=== PATIENT | male | born 1950 | race Caucasian/White ===

== ENCOUNTER 2017-04-18 02:35 | Emergency (ER) | payer MEDICARE, BC ==
[~2017-04-18] VITALS: Ht 188 cm; Wt 136.1 kg
[~2017-04-18 02:35] MED LIST: ALLOPURINOL300 MG PO; ASPIR-LOW81 MG PO; ATORVASTATIN CA40 MG PO; C-10001000 M1 PO; CARVEDILOL25 MG PO; CEPHALEXIN500 MG PO; CHROMIUM PICO200 MC1 PO; FUROSEMIDE20 MG PO; GABAPENTIN100 MG PO; GABAPENTIN300 MG PO; LEVOTHYROXINE50 MCG PO; LIPITOR80 MG GT; LISINOPRIL10 MG PO; LISINOPRIL5 MG PO; LORAZEPAM1 MG PO; MAG GLYCINATE100 MG PO; METOPROLOL TART25 MG PO; NITROGLYCERIN0.4 MG SL; ONDANSETRON HCL8 MG PO; OXYCODON-ACETA1 EAC2 PO; PLAVIX75 MG PO; POTASSIUM CHLO10 ME2 PO; PRILOSEC20 MG PO; SENNA LAX8.6 MG PO; TRAMADOL HCL50 MG PO; ULTRAM50 MG PO; VITAMIN B-12100 MCG PO; VITAMIN D35000 UNIT PO; XARELTO10 MG PO; ZYRTEC10 M3 PO
[2017-04-18] MEDS ORDERED: FUROSEMIDE20 MG PO (03:22)
--- NOTE | 2017-04-18 18:00 | EKG ---
[facility] [address] [facility] [place] [address] Signed Sinus bradycardia with 1st degree AV block Left axis deviation Abnormal ECG When compared with ECG of 04-JUL-2016 05:56, No significant change was found Confirmed by PAUL CARNEY MD ([id number]) on 04/18/2017 5:59:54 PM Electronically Signed By: PAUL CARNEY MD 04/18/17 1800 PATIENT NAME: JOAQUIM SANCHEZ JR Electrocardiogram DATE OF : 52 PHYSICIAN: PAUL CARNEY MD REPORT #: [id number] REPORT IS CONFIDENTIAL AND NOT TO BE RELEASED WITHOUT AUTHORIZATION
--- NOTE | 2017-04-18 18:00 | EKG ---
[facility] [address] [facility] [place] [address] Signed Sinus bradycardia with 1st degree AV block Left anterior fascicular block Cannot rule out Inferior infarct (masked by fascicular block?) , age undetermined Abnormal ECG When compared with ECG of 18-APR-2017 02:42, (Unconfirmed) No significant change was found Confirmed by PAUL CARNEY MD ([id number]) on 04/18/2017 6:00:03 PM Electronically Signed By: PAUL CARNEY MD 04/18/17 1800 PATIENT NAME: DANIEL JRJOAQUIM AGNES Electrocardiogram DATE OF : 52 PHYSICIAN: PAUL CARNEY MD REPORT #: [id number] REPORT IS CONFIDENTIAL AND NOT TO BE RELEASED WITHOUT AUTHORIZATION
== END 2017-04-18 06:15 | disposition home or self-care (01) ==
LOC: ED 02:35
DX: R07.89 Other chest pain (principal); I10 Essential (primary) hypertension; I25.2 Old myocardial infarction; Z86.73 Personal history of transient ischemic attack (TIA), and cerebral infarction without residual deficits; Z95.5 Presence of coronary angioplasty implant and graft; Z88.5 Allergy status to narcotic agent; Z79.899 Other long term (current) drug therapy; Z79.82 Long term (current) use of aspirin
CPT/HCPCS: 71020; 80053; 83735; 84484; 85025; 85379; 85610; 85730; 93005; 93010; 99284

== ENCOUNTER 2017-12-28 07:36 | Day surgery (SDC) | payer MEDICARE, BC ==
[~2017-12-28] VITALS: Ht 188 cm; Wt 147.4 kg
[2017-12-28] MEDS ORDERED: ZESTRIL5 MG PO (07:59)
[2017-12-28] MEDS ORDERED: LIPITOR10 MG PO (07:59)
[2017-12-28] MEDS ORDERED: ZYRTEC10 M3 PO (08:00)
--- NOTE | 2017-12-28 09:19 | NUR ---
12/28/17 0919 Ashley Landers 0915 PATIENT ARRIVES TO PACU AWAKE. RESP EVEN AND UNLABORED, ARRIVES ON OXYGEN, BUT TURNED OFF. SATS 95-98% ON ROOM AIR. PATIENT REPOSITIONED SELF TO BACK FOR COMFORT. ENCOURGAED TO PASS GAS TO RELIEVE CRAMPING.
--- NOTE | 2018-01-06 18:32 | OR ---
[facility] [address] [place], [place] [address] Signed DATE OF OPERATION: 12/28/2017 SURGEON: Zan Canales MD PREOPERATIVE DIAGNOSES: 1. Episodic rectal bleeding. 2. History of lymphoma 2015 (in remission). 3. History of serrated adenoma, 2007. POSTOPERATIVE DIAGNOSIS: Small hyperplastic polyp, left colon (excised). PROCEDURE: Total colonoscopy to cecum with cold morcellation polypectomy x1. ANESTHESIA: Intravenous sedation, fentanyl 100 mcg, Versed 5 mg. INDICATION: This 67-year-old white man is a patient of Dr. Carney and has history of lymphoma diagnosed in June of 2016 and treated effectively and now in durable remission. He was previously a patient of Dr. Chacko and now is a patient of Dr. Carney. He has had some episodes of rectal bleeding, not much and not recently. He is admitted at this time to undergo colonoscopy on the basis of that alone. He does have a history of serrated adenoma excised in 2007, without recommended followup since that time. He understands the risks of bleeding, infection, and perforation related to colonoscopy and wished to proceed. FINDINGS: The prep was good. Complete colonoscopy was undertaken to the cecum without question. There was no sign of adenomatous polyp of any sort. He had a few scattered diverticula, not many and one area, there was probably hyperplastic polyp, which was excised. The rectum was normal otherwise. PROCEDURE: The patient was brought to the endoscopy suite and placed in lateral decubitus position given intravenous sedation to the point of slurred speech and nystagmus. Digital rectal examination was normal. Electronically Signed By: ZAN CANALES MD 01/06/18 1832 PATIENT NAME: JOAQUIM SANCHEZ JR OPERATIVE REPORT DATE OF : 52 REPORT #: [id number] PHYSICIAN: ZAN CANALES MD PCP: Carolyn CHACKO MD REPORT IS CONFIDENTIAL AND NOT TO BE RELEASED WITHOUT AUTHORIZATION [facility] [address] [place], [place] [address] Signed An Olympus video colonoscope was passed in the rectum and manipulated throughout the colon ultimately intubating the cecum itself. The ileocecal valve and appendiceal orifice were normal. The scope was withdrawn from that point and examination thoroughly done throughout showed no sign of abnormality other than a small area suggestive of hyperplastic polyp in the descending colon. This was excised with cold morcellation technique. A few scattered diverticula were seen in the sigmoid. The scope was further withdrawn. Retroflexed view of the rectum was normal. Scope was removed. The patient was taken to recovery room in good condition. CONCLUDING DIAGNOSIS: No lesion to account for bleeding episode. Certainly, no evidence of adenomatous polyps or cancer. Probable hyperplastic polyp of left colon. PLAN: Recommend repeat colonoscopy in 10 years sooner if clinically indicated. He will follow up with his usual physician, Dr. Carney as needed. MD NIVIA Barr/MOSHE /[id number] cc: Paul Carney MD Copies: PAUL CARNEY MD ~ Electronically Signed By: ZAN CANALES MD 01/06/18 1832 PATIENT NAME: JOAQUIM SANCHEZ JR OPERATIVE REPORT DATE OF : 52 REPORT #: [id number] PHYSICIAN: ZAN CANALES MD PCP: Carolyn CHACKO MD REPORT IS CONFIDENTIAL AND NOT TO BE RELEASED WITHOUT AUTHORIZATION
== END 2017-12-28 09:45 | disposition home or self-care (01) ==
LOC: OPS 07:36 → DS 07:36 → OPS 08:30 → DS 08:30 → OPS 09:45
PROVIDERS: Surgery
PROC: 0DBG8ZZ Excision of Left Large Intestine, Via Natural or Artificial Opening Endoscopic (ICD-10-PCS; principal; 2017-12-28 08:30)
DX: K63.5 Polyp of colon (principal); K57.30 Diverticulosis of large intestine without perforation or abscess without bleeding; E78.5 Hyperlipidemia, unspecified; I10 Essential (primary) hypertension; E03.9 Hypothyroidism, unspecified; I25.2 Old myocardial infarction; G47.30 Sleep apnea, unspecified; I25.10 Atherosclerotic heart disease of native coronary artery without angina pectoris; E66.01 Morbid (severe) obesity due to excess calories; Z99.89 Dependence on other enabling machines and devices; Z85.72 Personal history of non-Hodgkin lymphomas; Z95.5 Presence of coronary angioplasty implant and graft; Z88.5 Allergy status to narcotic agent; Z86.010 Personal history of colon polyps; Z68.41 Body mass index [BMI] 40.0-44.9, adult
CPT/HCPCS: 88305; 99153; G0500; J2250; J3010; J7120

== ENCOUNTER 2019-09-27 09:18 | Emergency (ER) | payer MEDICARE, BC ==
[~2019-09-27] VITALS: Ht 188 cm; Wt 138.3 kg
--- OUTSIDE RECORDS SUMMARY | ~2019-09-27 | XMS | Encounter Summary ---
Demographics + + + | Address | [address] | | | [place] [address] | + + + | Home Phone | | + + + | Preferred Language | Unknown | + + + | Marital Status | | + + + | Hoahaoism Affiliation | [id number] | + + + | Race | Unknown | + + + | Ethnic Group | Unknown | + + + Author + + + | Author | [facility] | | | and [place] | + + + | Organization | [facility] | | | and [place] | + + + | Address | Unknown | + + + | Phone | Unavailable | + + + Support + + + + + | Name | Relationship | Address | Phone | + + + + + | Mara Sanchez | ECON | [address] | | | | | [place] | | | | | [address] | | + + + + + Care Team Providers + +------+ + | Care Compliance Reviewer Name | Role | Phone | + +------+ + | Earle Chacko MD | PCP | | + +------+ + Reason for Visit + + + | Reason | Comments | + + + | Follow-up | | + + + Encounter Details +--------+ + + + + | Date | Type | Department | Care Team | Description | +--------+ + + + + | 06/19/ | Hospital | [facility] | Mohamud, | Diffuse large B-cell | | 2017 | Encounter | [facility] | Joaquim Benson MD [address] | lymphoma of | | | | [facility] [address] | intra-abdominal | | | | [address] | [place] [address] | lymph nodes (HCC) | | | | [place] [address] | [phone] | | | | | [phone] | | | +--------+ + + + + Social History + +-------+ +--------+ + | Tobacco Use | Types | Packs/Day | Years | Date | | | | | Used | | + +-------+ +--------+ + | Former Smoker | | 3 | 22 | Quit: 07/18/1990 | + +-------+ +--------+ + + +---+---+---+ | Smokeless Tobacco: | | | | | Never Used | | | | + +---+---+---+ + + +---------+ + | Alcohol Use | Drinks/Week | oz/Week | Comments | + + +---------+ + | Yes | | | Occasionally - | + + +---------+ + + + + | Sex Assigned at | Date Recorded | | | | + + + | Not on file | | + + + + + + + | Job Start Date | Occupation | Industry | + + + + | Not on file | Not on file | Not on file | + + + + + + + + | Travel History | Travel Start | Travel End | + + + + + + | No recent travel history available. | + + documented as of this encounter Last Filed Vital Signs + + + + + | Vital Sign | Reading | Time Taken | Comments | + + + + + | Blood Pressure | 158/86 | 06/19/2017 9:32 AM | | | | | PDT | | + + + + + | Pulse | 53 | 06/19/2017 9:32 AM | | | | | PDT | | + + + + + | Temperature | 36.3 C (97.3 F) | 06/19/2017 9:32 AM | | | | | PDT | | + + + + + | Respiratory Rate | 18 | 06/19/2017 9:32 AM | | | | | PDT | | + + + + + | Oxygen Saturation | 95% | 06/19/2017 9:32 AM | | | | | PDT | | + + + + + | Inhaled Oxygen | - | - | | | Concentration | | | | + + + + + | Weight | 142.9 kg (315 lb) | 06/19/2017 9:32 AM | | | | | PDT | | + + + + + | Height | - | - | | + + + + + | Body Mass Index | 40.44 | 07/18/2016 4:16 PM | | | | | PDT | | + + + + + documented in this encounter Medications at Time of Discharge + + + +---------+ + + | Medication | Sig | Dispensed | Refills | Start | End Date | | | | | | Date | | + + + +---------+ + + | aspirin 81 mg EC | Take 81 mg by mouth | | 0 | | | | tablet | Daily. | | | | | + + + +---------+ + + | B Complex Vitamins | Take by mouth as | | 0 | | | | (VITAMIN B COMPLEX | needed. | | | | | | PO) | | | | | | + + + +---------+ + + | carvedilol (COREG) | Take 25 mg by mouth | | 2 | 06/16/20 | | | 25 mg tablet | 2 times daily (with | | | 16 | | | | breakfast & dinner). | | | | | | | Taking 1.5 tabs | | | | | | | twice daily. | | | | | + + + +---------+ + + | cetirizine | Take 10 mg by mouth | | 0 | | | | (ZYRTEC) 10 mg | Daily. | | | | | | tablet | | | | | | + + + +---------+ + + | | Apply topically | | 0 | | | | clotrimazole-betamet | Daily as needed. | | | | | | hasone (LOTRISONE) | | | | | | | cream | | | | | | + + + +---------+ + + | gabapentin | Take by mouth | | 4 | 06/12/20 | | | (NEURONTIN) 100 mg | Daily. 200 mg in AM, | | | 16 | | | capsule | 200 mg in | | | | | | | afternoon, also | | | | | | | taken with 300 mg in | | | | | | | evenings. | | | | | + + + +---------+ + + | gabapentin | Take 300 mg by mouth | | 2 | 07/13/20 | | | (NEURONTIN) 300 mg | Daily. | | | 16 | | | capsule | | | | | | + + + +---------+ + + | levothyroxine | | | 3 | 06/15/20 | | | (SYNTHROID, | | | | 16 | | | LEVOTHROID) 50 mcg | | | | | | | tablet | | | | | | + + + +---------+ + + | Multiple Vitamin | Take by mouth. | | 0 | | | | (MULTIVITAMINS PO) | Micro plex VMz | | | | | | | doTERRA supplement | | | | | + + + +---------+ + + | omeprazole | Take 20 mg by mouth | | 0 | | | | (PRILOSEC) 20 mg | every morning | | | | | | capsule | (before breakfast). | | | | | + + + +---------+ + + | traMADol (ULTRAM) | Take 50 mg by mouth | | 0 | 07/26/20 | | | 50 mg tablet | every 6 hours as | | | 16 | | | | needed. | | | | | + + + +---------+ + + | VITAMIN E COMPLEX | Take by mouth. | | 0 | | | | PO | | | | | | + + + +---------+ + + | cyanocobalamin | Take 50 mcg by mouth | | 0 | | | | (VITAMIN B-12) 100 | Daily. | | | | 8 | | MCG tablet | | | | | | + + + +---------+ + + | furosemide (LASIX) | Take 20 mg by mouth | | 0 | | | | 20 mg tablet | Daily. | | | | 8 | + + + +---------+ + + | GINSENG PO | Take 2 tablets by | | 0 | | | | | mouth. Takes it for | | | | 8 | | | one week the week | | | | | | | after chemo | | | | | + + + +---------+ + + | LORazepam (ATIVAN) | Take 1 tablet by | 90 | 3 | 06/19/20 | | | 1 mg | mouth every 8 hours | tablet | | 17 | 7 | | tabletIndications: | as needed for | | | | | | Diffuse large B-cell | Insomnia | | | | | | lymphoma of | (Nausea/Vomiting or | | | | | | intra-abdominal | sleeplessness | | | | | | lymph nodes (HCC) | related to | | | | | | | chemotherapy) for up | | | | | | | to 90 days. | | | | | + + + +---------+ + + | ondansetron | Take 1 tablet by | 30 | 3 | 07/25/20 | | | (ZOFRAN) 8 MG | mouth 2 times daily. | tablet | | 16 | 8 | | tabletIndications: | For two days after | | | | | | Diffuse large B-cell | each chemo and then | | | | | | lymphoma of | may take one tab | | | | | | intra-abdominal | every 8 hours if | | | | | | lymph nodes (HCC) | needed for nausea | | | | | + + + +---------+ + + | XARELTO 10 MG | Take 1 tablet by | 30 | 1 | 04/16/20 | | | tabletIndications: | mouth Daily. | tablet | | 17 | 8 | | Diffuse large B-cell | | | | | | | lymphoma of | | | | | | | intra-abdominal | | | | | | | lymph nodes (HCC) | | | | | | + + + +---------+ + + documented as of this encounter Progress Notes Joaquim Tejeda MD - 06/19/2017 9:36 AM PDTFormatting of this note might be differe nt from the original. Hematology/Oncology Progress Note [facility] [place], [place] Pt. Name/Age/: Joaquim Sanchez Jr. 66 y.o. 1950 Med. Record Number: [id number] Date of admission: 06/19/2017 Identifying Statement: Joaquim Sanchez Jr. is a 66 y.o. 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 The patient chart and medications were reviewed in detail and the patient was seen and exam ined. History of Present Illnesses, their Current Assessments and Plans: Problem List Diffuse large B-cell lymphoma of intra-abdominal lymph nodes Overview ACTIVE DIAGNOSIS: Mixed; Diffuse Large B-Cell/Follicular Lymphoma, at least Stage III. 1. Presentation with a three month history of progressive Left lower extremity edema, urina ry frequency and bowel irregularity. Left lower extremity venous doppler 2016 (S ) No DVT left lower extremity. CT abdomen/Pelvis with contrast 2016 ([facility]). Ex tensive periaortic lymphadenopathy (1.8 cm and 2.1 cm respectively), extensive adenopathy ex tending out along the left common iliac artery and encasing the left external iliac artery ( 4.4 cm) with compromise of the left external iliac vein. 2. Open laparotomy with LEFT ileal retroperitoneal lymph node biopsy ([facility], [facility]) June 242015. Specimen #[id number] ([facility]); Diffuse Large B-Cell lymph raciel, germinal center subtype (75%). 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 Overall Ki-67 expre ssion 70%. 3. PET/CT scan on 07/13/2016 was an incomplete study because the patient could not tolerate positioning but did demonstrate hypermetabolic left supraclavicular lymphadenopathy. 4. Cardiac Echocardiogram 07/24/2016; Ejection fraction 70%. 5. Patient declined bone marrow biopsy and aspiration. 6. Cycle#1 of RCHOP plus Neulasta with peripheral iv access on July 25, 2016. 7. Right internal jugular Port-a-Cath by Dr. David Morton on August 10, 2016. 8. Cycle#2 of RCHOP plus Neulasta on August 14, 2016. 9. Cycle#3 of RCHOP plus Neulasta on September 04, 2016. 10. CT Abdomen/Pelvis at [facility] [place] on September 12, 2016; Positive Response when compared to July 04, 2016. Region July 04, 2016 September 12, 2016 RIGHT Retroperitoneal 18 mm 6 mm LEFT Retroperitoneal 21 mm resolved LEFT iliac artery 22 x 26 mm 14 x 22 mm Left Iliac lymph node chain 60 x 40 mm 28 x 28 mm 11. Cycle #4 RCHP (vincristine dropped due to peripheral neuropathy) September 26, 2016. 12. Cycle #5 RCHP (vincrisitne dropped due to peripheral neuropathy) October 17, 2016. 13. Patient electively discontinued cytotoxic chemotherapy due to intolerable adverse effe ct on November 07, 2016 (fatigue, nausea (without emesis), night sweats, dysphagia, dyspepsi a, numbness in the fingers and toes which has progressed in the lower extremities to include painful dysesthesias, dysuria, insomnia, decreased mental acuity and separation of the toen ails from the nailbeds, headaches and decreased visual acuity, chest pain and palpitations, and dyspnea on exertion, rhinorrhea and epiphora) and crossed over to rituximab maintenance 375 mg/m once ever two months for two years (PRIMA protocol). 14. Repeat CT scan at [place], [place] on December 01, [address] able left iliac lymph node chain adenopathy. Region July 04, 2016 September 12, 2016 December 01, 2016 RIGHT Retroperitoneal 18 mm 6 mm resolved LEFT Retroperitoneal 21 mm resolved resolved LEFT iliac artery 22 x 26 mm 14 x 22 mm resolved Left Iliac lymph node chain 60 x 40 mm 28 x 28 mm 31 x [address] scan at [facility] on April 18, 2017 demonstrated decreased left iliac lymph node chain adenopathy. Region July 04, 2016 September 12, 2016 December 01, 2016 April 18, 2017 RIGHT Retroperitoneal 18 mm 6 mm resolved resolved LEFT Retroperitoneal 21 mm resolved resolved resolved LEFT iliac artery 22 x 26 mm 14 x 22 mm resolved resolved Left Iliac lymph node chain 60 x 40 mm 28 x 28 mm 31 x 21 mm 21 X 19 mm Current Assessment & Plan Joaquim Sanchez Jr. returned to clinic on 06/19/2017 with his , Mara, for foll ow-up and his fifth cycle of maintenance of rituximab for his composite diffuse large B-cell /follicular B-cell lymphoma. Interval history is notable for the fact that Dr. Chacko has taken Rios off of rivaroxaban ( Xarelto) and furosemide (Lasix). Chief complaint remains left lower extremity extremity edema. He has gained access to a int ermittent compression garment that he wears at night and compression garment that he wears d uring the day. Clinical exam is notable for asymmetrical LEFT lower extremity edema to the groin. Laboratory exam is notable for persistent, mild pancytopenia, likely a carry-over from his cytotoxic chemotherapy, which is not dose-limiting. Imaging studies are reviewed, showing progressive improvement in left inguinal lymphadenopa thy. Assessment; Composite B-Cell Lymphoma in a deepening first near-complete response. Plan; Proceed with Cycle #5 maintenance rituximab. Return in two months for Cycle #6 of a planned 12 cycles of maintenance rituximab therapy. Repeat imaging to be determined, consider abdomen/pelvis CT scan in September 2016. Review of Systems: Constitutional: Reports energy is fine. Denies fatigue. Denies high fevers, shaking chills, anorexia, nausea, vomiting, weight loss, or night sweats. Appetite without changes. Ear, Nose, Mouth, Throat: Denies odynophagia, dysphagia, or tinnitus. Cardiovascular: Denies shortness of breath, dyspnea on exertion, chest pain, palpitations o r orthopnea. Respiratory: Denies cough, hemoptysis, or sputum production. Gastrointestinal: Denies abdominal pain, constipation, diarrhea, melena, or bright red bloo d per rectum. Genitourinary: Denies hematuria or dysuria. Musculoskeletal:Chronic intermittent pain in knees, and ankles and shoulders. Neurologic: Denies headache, visual changes, or numbness/tingling of the extremities. State s vision is changing since chemo. Endocrine: Denies heat/cold intolerance. States having lymphedema in the left leg continues . States edema in both legs. Hematologic: Denies spontaneous bruising or bleeding. Integumentary: Denies rash, wounds or other skin concerns. Pain: Denies pain. Review of systems as above otherwise negative NOTE: Here for follow up with Dr. Tejeda, labs, port draw and 4 hour treatment. My chart: Active Review of systems as above otherwise negative Scheduled Medications: Current Outpatient Prescriptions Medication Sig Dispense Refill aspirin 81 mg EC tablet Take 162 mg by mouth Daily. B Complex Vitamins (VITAMIN B COMPLEX PO) Take by mouth. carvedilol (COREG) 25 mg tablet Take 25 mg by mouth 2 times daily (with breakfast & din ner). Taking 1.5 tabs twice daily. 2 cetirizine (ZYRTEC) 10 mg tablet Take 10 mg by mouth Daily. clotrimazole-betamethasone (LOTRISONE) cream Apply topically Daily as needed. cyanocobalamin (VITAMIN B-12) 100 MCG tablet Take 50 mcg by mouth Daily. furosemide (LASIX) 20 mg tablet Take 20 mg by mouth Daily. gabapentin (NEURONTIN) 100 mg capsule Take by mouth Daily. 100 mg in AM, 200 mg in aft ernoon, also taken with 300 mg in evenings. 4 gabapentin (NEURONTIN) 300 mg capsule Take 300 mg by mouth Daily. 2 GINSENG PO Take 2 tablets by mouth. Takes it for one week the week after chemo levothyroxine (SYNTHROID, LEVOTHROID) 50 mcg tablet 3 LORazepam (ATIVAN) 1 mg tablet Take 1 tablet by mouth every 8 hours as needed for Insom neela (Nausea/Vomiting or sleeplessness related to chemotherapy) for up to 90 days. 90 tablet 3 Multiple Vitamin (MULTIVITAMINS PO) Take by mouth. omeprazole (PRILOSEC) 20 mg capsule Take 20 mg by mouth every morning (before breakfast ). ondansetron (ZOFRAN) 8 MG tablet Take 1 tablet by mouth 2 times daily. For two days aft er each chemo and then may take one tab every 8 hours if needed for nausea (Patient not taki ng: Reported on 06/19/2017) 30 tablet 3 traMADol (ULTRAM) 50 mg tablet Take 50 mg by mouth every 6 hours as needed. VITAMIN E COMPLEX PO Take by mouth. XARELTO 10 MG tablet Take 1 tablet by mouth Daily. (Patient not taking: Reported on 05/26) 30 tablet 1 No current facility-administered medications for this encounter. Facility-Administered Medications Ordered in Other Encounters Medication Dose Route Frequency Provider Last Rate Last Dose heparin 100 units/mL flush injection 500 Units 5 mL Intercatheter PRN Joaquim robles MD 500 Units at 06/19/17 1446 Allergies: Allergy: Allergies Allergen Reactions Codeine "wires him up" Past Medical and Surgical History, Social History and Problems: Past Medical History: Diagnosis Date Benign neoplasm of colon Chronic ischemic heart disease Depression Dyspnea Esophageal reflux Hyperglycemia Hyperlipemia Hypertension Obesity Superficial injury of forearm Past Surgical History: Procedure Laterality Date CHOLECYSTECTOMY INGUINAL HERNIA REPAIR incarcerated Internal Jugular Bard Port-a-cath Right 08/11/2017 [facility] KNEE SURGERY Bilateral stent 2013 RCA TONSILLECTOMY AND ADENOIDECTOMY Social History Social History Marital status: Spouse name: N/A Number of children: N/A Years of education: N/A Occupational History Not on file. Social History Main Topics Smoking status: Former Smoker Packs/day: 3.00 Years: 22.00 Quit date: 07/18/1990 Smokeless tobacco: Never Used Alcohol use Yes Comment: Occasionally - Drug use: No Sexual activity: Yes Partners: Female Other Topics Concern Not on file Social History Narrative No narrative on file Patient Active Problem List Diagnosis Diffuse large B-cell lymphoma of intra-abdominal lymph nodes Lymphedema of left lower extremity Objectives: Temp: 36.3 C (97.3 F) BP: 158/86 Pulse: 53 Resp: 18 SpO2: 95 % on Min/Max Temp past 24 hours:Temp Av.3 C (97.3 F) Min: 36.3 C (97.3 F) Max: 3 6.3 C (97.3 F) No intake or output data in the 24 hours ending 06/19/17 1850 Wt. Admission: Weight: (!) 142.9 kg (315 lb) Wt. Current: Weight: (!) 142.9 kg (315 lb) Wt Readings from Last 3 Encounters: 06/19/17 (!) 142.9 kg (315 lb) 04/23/17 (!) 143.1 kg (315 lb 7.7 oz) 02/26/17 (!) 143.7 kg (316 lb 12.8 oz) Body mass index is 40.44 kg/m. Physical Exam: General: The patient is alert and oriented. In no distress. Eyes: Conjunctiva clear. Sclera anicteric. ENMT: Oropharynx fee of lesions, mucous membranes moist. Cardiovascular: Regular rate and rhythm, no rubs, gallops, or murmurs. Lungs: Clear to auscultation and percussion. Chest: Right internal jugular port-a-cath was accessed with a Vargas needle and a brisk bloo d return was noted. Abdomen: Soft, nontender, no hepatospenomegaly. No palpable masses. Bowel sounds present. Infraumbilical surgical scar is well-healed. : No scrotal edema. Extremities: Compression garment on the left lower extremity. Mid calf circumference (15 cm below the inferior border of the patella) is 50 cm on the lef t and 46 cm on the right. Skin: No rashes, bruising, or petechiae. Lymph: No palpable nodes in the neck, supraclavicular fossa, axilla or groin. Neurological: Cranial nerves are intact. Normal sensory and motor function, No focal defi cits noted. Muscular/Skeletal: No acute bony tenderness. No evidence of sarcopenia. Psychiatric: Normal mood and affect. ECOG Performance Status [] 0 [x] 1 [] 2 []3 [] 4 ECOG PERFORMANCE STATUS* Grade ECOG Karnofsky 0 Fully active, able to carry on all pre-disease performance without restriction. 90 - 100 1 Restricted in physically strenuous activity but ambulatory and able to carry out work of a light or sedentary nature, e.g., light house work, office work 70 - 80 2 Ambulatory and capable of all selfcare but unable to carry out any work activ ities. Up and about more than 50% of waking hours 50 - 60 3 Capable of only limited selfcare, confined to bed or chair more than 50% of w aking hours 30 - 40 4 Completely disabled. Cannot carry on any selfcare. Totally confined to bed or chair 10 - 20 * As published in Am. J. Clin. Oncol.: Davida Ma., Rebel REdita., Andie Menezes., Donal Trejo, Michael, TDusty., Armando Diamond., Fatoumata, P .P.: Toxicity And Response Criteria Of The Eastern Cooperative Oncology Group. Am J Clin Onc ol 5:649-655, 1982. The ECOG Performance Status is in the public domain therefore available for public use. To duplicate the scale, please cite the reference above and credit the Eastern Cooperative Onco logy Group, Joaquim Aguirre M.D., Group Chair Diagnostic studies: Available data and images were reviewed personally. See reports. Significant results and findings are addressed here or in the Assessment and Plan. Results for JOAQUIM SANCHEZ JR. ( ) as of 06/19/2017 10:14 Ref. Range 06/19/2017 08:59 WBC Latest Ref Range: 4.0 - 11.0 K/uL 3.1 (L) RBC: Latest Ref Range: 4.30 - 5.70 M/uL 4.21 (L) Hgb Latest Ref Range: 13.5 - 18.0 g/dL 12.7 (L) Hct, Final Latest Ref Range: 40.0 - 51.0 % 36.2 (L) MCV Latest Ref Range: 83.0 - 101.0 fL 85.9 MCH Latest Ref Range: 28.0 - 35.0 pg 30.2 MCHC Latest Ref Range: 32.0 - 36.0 g/dL 35.1 RDW-CV Latest Ref Range: <15.0 % 16.4 (H) Platelet Count Latest Ref Range: 140 - 440 K/uL 106 (L) MPV Latest Units: fL 9.0 Absolute Neutrophils Latest Ref Range: 1.80 - 8.50 K/uL 2.00 Absolute Lymphocytes Latest Ref Range: 0.60 - 3.20 K/uL 0.80 Absolute Monocytes Latest Ref Range: 0.00 - 1.00 K/uL 0.30 Absolute Eosinophils Latest Ref Range: 0.00 - 0.40 K/uL 0.10 Absolute Basophils Latest Ref Range: 0.00 - 0.10 K/uL 0.00 % Neutrophils Latest Ref Range: 45.0 - 82.0 % 62.5 % Lymphocytes Latest Ref Range: 20.0 - 45.0 % 25.1 % Monocytes Latest Ref Range: 4.0 - 12.0 % 9.0 % Eosinophils Latest Ref Range: 0.0 - 5.0 % 2.7 % Basophils Latest Ref Range: 0.0 - 1.0 % 0.7 NA Latest Ref Range: 136 - 149 mmol/L 137 K Latest Ref Range: 3.5 - 5.1 mmol/L 3.8 Chloride Latest Ref Range: 98 - 109 mmol/L 106 Carbon dioxide Latest Ref Range: 24 - 31 mmol/L 26 ANION GAP Latest Ref Range: 3 - 16 mmol/L 5 GLUCOSE Latest Ref Range: 70 - 109 mg/dL 108 BUN Latest Ref Range: 7 - 18 mg/dL 16 Creatinine Latest Ref Range: 0.60 - 1.30 mg/dL 0.89 BUN/CREA Unknown 18.0 ALBUMIN Latest Ref Range: 3.2 - 5.0 g/dL 3.7 Albumin/Globulin ratio Latest Ref Range: 0.8 - 2.0 1.6 Total protein Latest Ref Range: 6.0 - 7.8 g/dL 6.0 EGFR IF NOT Latest Ref Range: >=60 mL/min/1.73m2 >60 Calcium Latest Ref Range: 8.3 - 10.5 mg/dL 9.4 ALK PHOS Latest Ref Range: 40 - 110 U/L 44 ALT (SGPT) (REF) Latest Ref Range: 6 - 45 U/L 23 AST (SGOT) (REF) Latest Ref Range: 10 - 42 U/L 21 LDH TOTAL Latest Ref Range: 91 - 180 U/L 147 BILIRUBIN TOTAL Latest Ref Range: 0.1 - 1.5 mg/dL 0.4 GLOBULIN Latest Ref Range: 2.1 - 3.8 g/dL 2.3 Pharmacovigilance: Results for JOAQUIM SANCHEZ JR. ( ) as of 11/08/2016 09:09 Ref. Range 10/26/2016 11:35 LVEF-TTE TRANSTHORACIC ECHO Unknown 70 Outside expert review of the the use of maintenance Rituxan is received and reviewed. Refer ences are made to Carlton Bowser, Daniel Hurt, Genaro Hirsch, Genaro Vigil, Dorothea gallardo, Jus Reyes, Carolyn Angel, and Diamond Johnson "Late-Onset Neutropenia in Pat ients Treated with Rituximab for Non-Hodgkin's Lymphoma" International Journal of Hematology . June 2006, Volume 84, Issue 3, pp 242-247 and Jackelyn Mohan, Faustino Vazquez, Anupam Azevedo, Horacio Brooks, Berkley Downey, Jesusita Couch, Js Dubose, Parris Pineda i, and Aman Power "Delayed-Onset Peripheral Blood Cytopenia after Rituximab: Frequency a nd Risk Factor Assessment in a Consecutive Series of 77 Treatments" Leukemia & Lymphoma 2006 , Vol. 47, No. 6, pp 0886-5248. In the first article, an observational study by Niels et al, late-onset grade 4 neutropeni a occurred in 3/54 non-Hodgkin's lymphoma patients treated with rituximab between May 2001 and November 2003. This represented 5 episodes of neutropenia in a total of 332 cycles of rituximab therapy (1.5% of cycles). Neutropenia generally occurred between [address] administration of cytotoxic agents in combination with rituximab. The authors conclude t hat "further studies are needed to determine how rituximab functions and to identify appropr iate countermeasures." The second article is another observational study, by Marques bonilla al from [facility] th at reports neutropenia developed in 27.3% of non-Hodgkin's lymphoma patients when rituximab was given in combination with either chemotherapy, autologous stem cell transplantation, or occasionally as a single agent. Patients treated with chemotherapy were at higher risk for p ost rituximab delayed cytopenia. The authors conclude "the late-onset cytopenia, particularl y neutropenia, is a clinically significant complication of rituximab treatment, which merits further investigation." It should be noted, that both studies are observational in nature and were not randomized, placebo-controlled or prospective. In addition, the majority of patient's described received concurrent cytotoxic chemotherapy with their rituximab, and in the setting of hematological malignancies, cytopenias, especially neutropenia are a predictable, and even expected event following treatment. Palliative Care: Patient's Medications New Prescriptions No medications on file Modified Medications Modified Medication Previous Medication LORAZEPAM (ATIVAN) 1 MG TABLET LORazepam (ATIVAN) 1 mg tablet Take 1 tablet by mouth every 8 hours as needed for Insomnia (Nausea/Vomiting or sleeple ssness related to chemotherapy) for up to 90 days. Take 1 tablet by mouth every 6 hours a s needed (Nausea/Vomiting). Discontinued Medications No medications on file Procedure note: Day 1, Rituxan every 2 months x 2 years # 5 (56-day cycle) Completed; Released on 06/19/2017; Originally planned for 06/19/2017 Labs Lactate Dehydrogenase STAT, ONE TIME, Sun06/19/17 at 0900, For 1 occurrence OrderHistory Comprehensive Metabolic Panel STAT, ONE TIME, Sun06/19/17 at 0900, For 1 occurrence OrderHistory CBC with Differential STAT, ONE TIME, Sun06/19/17 at 0900, For 1 occurrence OrderHistory Nursing Orders OK to proceed with chemotherapy (Not Released) 06/19/17 The treating provider is aware that the WBC is 3100 and the ANC is 2000 and the platelet co unt is 106,000 and deems that it is safe and appropriate to proceed with maintenance rituxim ab. INFORMED CONSENT: The nature and character of the proposed treatment with rituximab and the anticipated results of the proposed treatment with rituximab;recognized alternative forms o f treatment, including non-treatment; the risks benefits, and side effects of proposed treat ment, alternative treatments and non-treatment were discussed with the patient who consents to proceed with treatment with rituximab. The treating provider has examined the patient and reviewed the diagnostic data, including laboratory data, and deems that it is safe and appr opriate to proceed with treatment with rituximab.Electronically signed by: JOAQUIM ROBLES MD 06/19/2017 10:32. OrderHistory Plans for discharge (Not Released) QFU CBC,CMP,LDH Port DRAW IN 2 months with 4 hour infusion. OrderHistory Pre-Medications acetaminophen (TYLENOL) tablet 650 mg 650 mg, Oral, ONCE, Sun06/19/17 at 1115, For 1 dose Give 30 minutes prior to riTUXimab. OrderHistory famotidine (PEPCID) injection 20 mg 20 mg, Intravenous, ONCE, Sun06/19/17 at 1115, For 1 dose Prior to administration, prepare a 20 mg dose by diluting 2 mL of famotidine 10 mg/mL to 10 mL with normal saline. OrderHistory CHEMOTHERAPY riTUXimab (RITUXAN) 1,000 mg in sodium chloride 0.9% 1,000 mL infusion 1,000 mg (rounded from 997.5 mg = 375 mg/m2 2.66 m2 Treatment plan recorded BSA), Intra venous, ONCE, Sun06/19/17 at 1145, For 1 dose Initial infusion: Start at 50 mg/hr. If no reaction, increase by 50 mg/hr increments every 30 min, to a maximum of 400 mg/hour. Subsequent infusions (if tolerated initial): Start at 1 00 mg/hr. If no reaction, increase by 100 mg/hr increments every 30 min, to a maximum of 400 mg/hour. If reaction occurs, stop infusion. If reaction abates, restart infusion at 50% of previous rate. OrderHistory Post-Medications heparin 100 units/mL flush injection 500 Units 500 Units (5 mL), Intercatheter, PRN, Line Care, Starting Sun06/19/17 at 1047 OrderHis tory JOAQUIM TEJEDA MD Portions of this chart may have been created with [employer] voice recognition software. Occasi onal wrong-word or sound-alike substitutions may have occurred due to the inherent valencia itations of voice recognition software. Please read the chart carefully and recognize, using context, where these substitutions have occurred. documented in t his encounter Plan of Treatment +--------+---------+ + + + | Date | Type | Specialty | Care Team | Description | +--------+---------+ + + + | 10/01/ | Office | Cardiology | Karen Bansal, | | | 2019 | Visit | | MD Patricia JOHNSON | | | | | | [address] | | | | | | [id number] | | | | | | | | +--------+---------+ + + + documented as of this encounter Visit Diagnoses + + | Diagnosis | + + | Diffuse large B-cell lymphoma of intra-abdominal lymph nodes (HCC) Other malignant | | lymphomas of intra-abdominal lymph nodes | + + documented in this encounter
--- OUTSIDE RECORDS SUMMARY | ~2019-09-27 | XMS | Encounter Summary ---
Demographics + + + | Address | [address] | | | [place] [address] | + + + | Home Phone | | + + + | Preferred Language | Unknown | + + + | Marital Status | | + + + | Roman Catholic Affiliation | 1013 | + + + | Race | Unknown | + + + | Ethnic Group | Unknown | + + + Author + + + | Author | [facility] | | | and [place] | + + + | Organization | [facility] | | | [...] [place] | | | | | [address] | | + + + + + Care Team Providers + +------+ + | Care Lpn Per Diem Name | Role | Phone | + +------+ + | Earle Chacko MD | PCP | | + +------+ + Reason for Referral Diagnostic/Screening (Routine) +--------+--------+ + + + + | Status | Reason | Specialty | Diagnoses / | Referred By | Referred To | | | | | Procedures | Contact | Contact | +--------+--------+ + + + + | Closed | | Radiology | Diagnoses | | OP ST | | | | | Diffuse | Efrain, | ELOISE | | | | | large B-cell | [facility] | | | | | lymphoma of | MD Gerber | [address] | | | | | | [address] | | | | | intra-abdomi | [address] [place] | [place], [place] | | | | | nal lymph | [place], [place] | [address] | | | | | nodes (HCC) | [address] | Phone: | | | | | Procedures | Phone: | [phone] | | | | | CT Chest | [phone] | Fax: | | | | | Abdomen | Fax: | [phone] | | | | | Pelvis w | [phone] | | | | | | Contrast | | | +--------+--------+ + + + + Reason for Visit + + + | Reason | Comments | + + + | Follow-up | | + + + Encounter Details +--------+ + + + + | Date | Type | Department | Care Team | Description | +--------+ + + + + | 07/15/ | Hospital | [facility] | Miguel Zuniga | Diffuse large B-cell | | 2018 | Encounter | [facility] | MD Gerber [address] | lymphoma of | | | | [facility] [address] [place] | intra-abdominal | | | | [address] [place] | [place] [address] | lymph nodes (HCC) | | | | [place] [address] | [phone] | (Primary Dx) | | | | [phone] | | | +--------+ + + + [...] + + + | Blood Pressure | 143/79 | 07/15/2018 9:33 AM | | | | | PDT | | + + + + + | Pulse | 51 | 07/15/2018 9:33 AM | | | | | PDT | | + + + + + | Temperature | 35.9 C (96.6 F) | 07/15/2018 9:33 AM | | | | | PDT | | + + + + + | Respiratory Rate | 18 | 07/15/2018 9:33 AM | | | | | PDT | | + + + + + | Oxygen Saturation | 95% | 07/15/2018 9:33 AM | | | | | PDT | | + + + + + | Inhaled Oxygen | - | - | | | Concentration | | | | + + + + + | Weight | 141.4 kg (311 lb | 07/15/2018 9:33 AM | | | | 11.7 oz) | PDT | | + + + + + | Height | - | - | | + + + + + | Body Mass Index | 40.02 | 02/20/2018 1:19 PM | | | | | PDT [...] + +---------+ + + | atorvaSTATin | Take 10 mg by mouth | | 0 | | | | (LIPITOR) 10 mg | Daily. | | | [...] + + + +---------+ + + | benzonatate | | | 0 | 06/05/20 | | | (TESSALON) 100 mg | | | | 18 | | | capsule | | | [...] + + + +---------+ + + | doxycycline | | | 0 | 05/29/20 | | | (VIBRAMYCIN) 100 mg | | | | 18 | | | tablet | | | [...] + + + +---------+ + + | KRILL OIL PO | Take by mouth. | | 0 | | | + + + +---------+ + + | levothyroxine | | | 3 | 06/15/20 | | | (SYNTHROID, | | | | 16 | | | LEVOTHROID) 50 mcg | | | | | | | tablet | | | | | | + + + +---------+ + + | lisinopril | Take 1 tablet by | | 0 | 02/21/20 | | | (PRINIVIL, ZESTRIL) | mouth Daily. | | | 18 | | | 10 mg tablet | | | | | | + + + +---------+ + + | lisinopril | Take 10 mg by mouth | | 0 | | | | (PRINIVIL, ZESTRIL) | Daily. | | | | | | 10 mg tablet | | | | | | + + + +---------+ + + | metFORMIN | Take 500 mg by mouth | | 0 | | | | (GLUCOPHAGE) 500 mg | Daily. | | | | [...] + + + +---------+ + + | traZODone | Take 50 mg by mouth | | 0 | | | | (DESYREL) 50 mg | nightly. | | | | | | tablet | | | | | | + + + +---------+ + + | VITAMIN E COMPLEX | Take by mouth. | | 0 | | | | PO | | | | | | + + + +---------+ + + documented as of this encounter Progress Notes Miguel Zuniga MD - 07/15/2018 10:04 AM PDTFormatting of this note might be diff erent from the original. Hem-Onc Progress Note [facility] Pt. Name/Age/: Gerber Galindo Jr. 68 y.o. 1950 Med. Record Number: [id number] Date of admission: 07/15/2018 Assessment and plan: 1. 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 Discussion concerning plans for follow-up surveillance monitoring to include recheck CT sca n. This can be scheduled at [facility] close to where patient lives for [facility]. Gen. discussion today concerning imaging is a tool for surveillance with trend away from ferraro rveillance monitoring using scans instead to answer diagnostic questions. Discussion concerning availability of rescue therapies should patient's tumor relapse and i n particular the development of car T cell therapy as a salvage therapy for relapsed diffuse large B-cell lymphoma. We described this form of adoptive therapy as being highly specific for relapsed lymphoma contrasting to earlier therapies such as myelo ablative chemotherapy with stem cell rescue. Encouragement with regard to flu vaccination. Endorsement of patient's current low carbohy drate diet as being optimal in terms of helping with weight loss which itself should help mi tigate lymphedema. Subjective: The patient chart and medications were reviewed in detail and the patient was seen and exam ined. Gerber Galindo Jr. is a 68 y.o. male returns today for follow-up and completion of a 24 month course of maintenance therapy following remission of diffuse large B-cell lymphoma. Interim history mostly unremarkable with patient continuing to do well over this past and o f summer and johnathon. Patient continues to maria a left leg lymphedema situation which deve loped in parallel with the onset of patience lymphoma. He's been using a lymphedema pump at night which helps reduce the caliber of his leg. He describes however continued significan t pain with walking because of the swelling which has limited his daily activities. He has been due to fall in terms of following a diet designed to reduce exposure to carbohydrates a nd is lost about 5 kg of the past year. PSH: Reviewed, no changes to admission H&P. Past Medical History: Diagnosis Date Benign neoplasm of colon Chronic ischemic heart disease Depression Dyspnea Esophageal reflux Hyperglycemia Hyperlipemia Hypertension Obesity Superficial injury of forearm Review of Systems: Constitutional: Denies high fevers, shaking chills, anorexia, nausea, vomiting, or weight loss. Appetite without changes. States slight fatigue. Occasional night sweats. Ear, Nose, Mouth, Throat: Denies odynophagia or dysphagia. States frequent tinnitus. Cardiovascular: Denies shortness of breath, dyspnea on exertion, chest pain, palpitations o r orthopnea. Respiratory: Denies hemoptysis, or sputum production. Recovering from bronchitis. Gastrointestinal: Denies abdominal pain, constipation, diarrhea, melena, or bright red bloo d per rectum. Genitourinary: Denies hematuria or dysuria. Musculoskeletal: States intermittent pain in the joints of fingers and toes. Neurologic: Denies headache or visual changes.Reports numbness/tingling in feet. Endocrine: Deniesor heat/cold intolerance. Reports left leg edema continues. Hematologic: Denies spontaneous bruising or bleeding. Integumentary: Denies rash, wounds or other skin concerns. Pain: Denies pain. Review of systems as above otherwise negative Scheduled Medications: Continuous Infusions: PRN Meds:. Allergy: Allergies Allergen Reactions Codeine "wires him up" Current Outpatient Prescriptions on File Prior to Encounter Medication Sig Dispense Refill aspirin 81 mg EC tablet Take 81 mg by mouth Daily. atorvaSTATin (LIPITOR) 10 mg tablet Take 10 mg by mouth Daily. B Complex Vitamins (VITAMIN B COMPLEX PO) Take by mouth as needed. carvedilol (COREG) 25 mg tablet Take 25 mg by mouth 2 times daily (with breakfast & din ner). Taking 1.5 tabs twice daily. 2 cetirizine (ZYRTEC) 10 mg tablet Take 10 mg by mouth Daily. clotrimazole-betamethasone (LOTRISONE) cream Apply topically Daily as needed. gabapentin (NEURONTIN) 100 mg capsule Take by mouth Daily. 200 mg in AM, 200 mg in aft ernoon, also taken with 300 mg in evenings. 4 gabapentin (NEURONTIN) 300 mg capsule Take 300 mg by mouth Daily. 2 KRILL OIL PO Take by mouth. levothyroxine (SYNTHROID, LEVOTHROID) 50 mcg tablet 3 lisinopril (PRINIVIL, ZESTRIL) 10 mg tablet Take 10 mg by mouth Daily. metFORMIN (GLUCOPHAGE) 500 mg tablet Take 500 mg by mouth Daily. Multiple Vitamin (MULTIVITAMINS PO) Take by mouth. Micro plex VMz doTERRA supplement omeprazole (PRILOSEC) 20 mg capsule Take 20 mg by mouth every morning (before breakfast ). traMADol (ULTRAM) 50 mg tablet Take 50 mg by mouth every 6 hours as needed. traZODone (DESYREL) 50 mg tablet Take 50 mg by mouth nightly. VITAMIN E COMPLEX PO Take by mouth. Current Facility-Administered Medications on File Prior to Encounter Medication Dose Route Frequency Provider Last Rate Last Dose ethyl chloride spray Topical PRN Gerber Mallory MD Objectives: Temp: 35.9 C (96.6 F) BP: 143/79 Pulse: 51 Resp: 18 SpO2: 95 % on Min/Max Temp past 24 hours:Temp Av.9 C (96.6 F) Min: 35.9 C (96.6 F) Max: 3 5.9 C (96.6 F) No intake or output data in the 24 hours ending 07/15/18 1005 Wt. Admission: Weight: (!) 141.4 kg (311 lb 11.7 oz) Wt. Current: Weight: (!) 141.4 kg (311 lb 11.7 oz) Physical Exam: Exam: General: The patient is alert and oriented. No acute distress. Psychiatric: Normal mood and affect. Diagnostic studies: Available data and images were reviewed personally. See reports. Significant results and findings are addressed here or in the Assessment and Plan. Recent Labs Lab 07/15/18 0916 WBC 3.1* HGB 13.0* HCT 38.9* PLT 112* Recent Labs Lab 07/15/18 0916 NA 139 K 3.9 CL 106 CO2 27 BUN 15 CREA 0.95 GLU 110* CALCIUM 9.6 BILITOT 0.8 AST 27 ALT 26 ALKPHOS 53 ALBUMIN 3.9 Electronically signed by: Miguel Zuniga, 07/15/2018 10:[address] [facility] TIME SPENT 25 MIN. > 50% AT BEDSIDE, WITH FAMILY/PATIENT IN CARE AND BIOMEDICAL MANAGER ON UNIT AND CO ORDINATION OF CARE Portions of this chart may have been created with [employer] voice recognition software. Occasi onal wrong-word or sound-alike substitutions may have occurred due to the inherent valencia itations of voice recognition software. Please read the chart carefully and recognize, using context, where these substitutions have occurred. Mckayla Reardon, [facility] - 07/15/2018 9:36 AM PDTREVIEW O F SYSTEMS Constitutional: Denies high fevers, shaking chills, anorexia, nausea, vomiting, or weight loss. Appetite without changes. States slight fatigue. Occasional night sweats. Ear, Nose, Mouth, Throat: Denies odynophagia or dysphagia. States frequent tinnitus. Cardiovascular: Denies shortness of breath, dyspnea on exertion, chest pain, palpitations o r orthopnea. Respiratory: Denies hemoptysis, or sputum production. Recovering from bronchitis. Gastrointestinal: Denies abdominal pain, constipation, diarrhea, melena, or bright red bloo d per rectum. Genitourinary: Denies hematuria or dysuria. Musculoskeletal: States intermittent pain in the joints of fingers and toes. Neurologic: Denies headache or visual changes. Reports numbness/tingling in feet. Endocrine: Deniesor heat/cold intolerance. Reports left leg edema continues. Hematologic: Denies spontaneous bruising or bleeding. Integumentary: Denies rash, wounds or other skin concerns. Pain: Denies pain. Note: Pt is here for his last tx, and labs. My chart: Active documented in this encounter Plan of Treatment +--------+---------+ + + + | Date | Type | Specialty | Care Team | Description | +--------+---------+ + + + | 10/01/ | Office | Cardiology | Karen Bansal, | | | 2019 | Visit | | MD Patricia JOHNSON | | | | | | [place] | | | | | | [id number] | | | | | | | | +--------+---------+ + + + + +---------+--------+ + + | Name | Type | Priori | Associated Diagnoses | Order Schedule | | | | ty | | | + +---------+--------+ + + | CT Chest Abdomen | Imaging | Routin | Diffuse large | Expected: | | Pelvis w Contrast | | e | B-cell lymphoma of | 07/15/2018, Expires: | | | | | intra-abdominal | 07/16/2019 | | | | | lymph nodes (HCC) | | + +---------+--------+ + + documented as of this encounter Visit Diagnoses + + | Diagnosis | + + | 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
--- OUTSIDE RECORDS SUMMARY | ~2019-09-27 | XMS | Encounter Summary ---
Demographics + + + | Address | [address] | | | [place] [address] | + + + | Home Phone | | + + + | Preferred Language | Unknown | + + + | Marital Status | | + + + | Temple Affiliation | 1013 | + + + | Race | Unknown | + + + | Ethnic Group | Unknown | + + + Author + + + | Author | [facility] | | | and [place] | + + + | Organization | [facility] | | | and [...] [place] | | | | | [address] | | + + + + + Care Team Providers + +------+ + | Care Alarm Service Technician Name | Role | Phone | + +------+ + | Earle Chacko MD | PCP | | + +------+ + Reason for Visit Service/Procedure (Routine) +--------+--------+ + + + + | Status | Reason | Specialty | Diagnoses / | Referred By | Referred To | | | | | Procedures | Contact | Contact | +--------+--------+ + + + + | Closed | | Infusion | Diagnoses | | [facility] | | | | Therapy | Diffuse | Mohamud, | Infusion [address] | | | | | large b-cell | Gerber [place], | [address] | | | | | lymphoma, | MD [address] | [place], | | | | | intra-abdomi | [address] | [place] [address] | | | | | nal lymph | [place], | Phone: | | | | | nodes (HCC) | [place] [address] | [phone] | | | | | Procedures | Phone: | Fax: | | | | | [place] | [phone] | [phone] | | | | | INJECTION, | Fax: | | | | | | FAMOTIDINE, | [phone] | | | | | | 20 MG [place] | | | | | | | RITUXIMAB | | | | | | | INJECTION, | | | | | | | 100 MG UT | | | | | | | LORAZEPAM | | | | | | | INJECTION, 2 | | | | | | | MG UT | | | | | | | MEPERIDINE | | | | | | | HYDROCHL | | | | | | | /100 MG UT | | | | | | | DIPHENHYDRAM | | | | | | | INE HCL | | | | | | | INJECTIO, 50 | | | | | | | MG UT | | | | | | | METHYLPREDNI | | | | | | | SOLONE | | | | | | | INJECTION, | | | | | | | 125 MG UT | | | | | | | DEXAMETHASON | | | | | | | E SODIUM | | | | | | | PHOS, 1 MG | | | | | | | UT NORMAL | | | | | | | SALINE | | | | | | | SOLUTION | | | | | | | INFUS, 500 | | | | | | | ML UT | | | | | | | NORMAL | | | | | | | SALINE | | | | | | | SOLUTION | | | | | | | INFUS, 250 | | | | | | | ML UT | | | | | | | STERILE | | | | | | | WATER/SALINE | | | | | | | , 10 ML UT | | | | | | | CHEMOTHER, | | | | | | | IV PUSH,EA | | | | | | | ADD DRUG UT | | | | | | | CHEMOTHER, | | | | | | | IV INFUSION, | | | | | | | 1 HR UT | | | | | | | CHEMOTHER, | | | | | | | IV INFUSION, | | | | | | | EA HR UT | | | | | | | CHEMOTHER,NO | | | | | | | N-HORMONE | | | | | | | ANTI-NEOPL, | | | | | | | SUB-Q/IM UT | | | | | | | CHEMOTHER | | | | | | | HORMON | | | | | | | ANTINEOPL | | | | | | | SUB-Q/IM | | | +--------+--------+ + + + + Encounter Details +--------+ + + + + | Date | Type | Department | Care Team | Description | +--------+ + + + + | 08/13/ | Hospital | [facility] | Miguel Zuniga | 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 | | | | INFUSION [address] | [address] [place] | intra-abdominal | | | | [address] [place], | [place] [address] | lymph nodes (HCC); | | | | [place] [address] | [phone] | Lymphedema of left | | | | [phone] | | lower extremity | +--------+ + + + + Social [...] documented as of this encounter Progress Notes Livier Olsen RN - 08/13/2017 2:16 PM PSTPatient discharged in satisfactory conditio n. Discharged ambulatory. With family. To home. Verified that patient has antinausea medications at home. Future appointments and After Visit Summary (AVS) provided. documented in this encounter Plan of Treatment +--------+---------+ + + + | Date | Type | Specialty | Care Team | Description | +--------+---------+ + + + | 10/01/ | Office | Cardiology | Karen Bansal, | | | 2019 | Visit | | MD Patricia JOHNSON | | | | | | [place] | | | | | | [address] | | | | | | | | +--------+---------+ + + + documented as of this encounter Procedures + +--------+ + + + | Procedure Name | Priori | Date/Time | Associated Diagnosis | Comments | | | ty | | | | + +--------+ + + + | CBC WITH | STAT | 08/13/2017 | Diffuse large | Results for this | | DIFFERENTIAL | | 9:05 AM | B-cell lymphoma of | procedure are in the | | | | PST | intra-abdominal | results section. | | | | | lymph nodes (HCC) | | + +--------+ + + + | LACTATE | STAT | 08/13/2017 | Diffuse large | Results for this | | DEHYDROGENASE | | 9:05 AM | B-cell lymphoma of | procedure are in the | | | | PST | intra-abdominal | results section. | | | | | lymph nodes (HCC) | | + +--------+ + + + | COMPREHENSIVE | STAT | 08/13/2017 | Diffuse large | Results for this | | METABOLIC PANEL | | 9:05 AM | B-cell lymphoma of | procedure are in the | | | | PST | intra-abdominal | results section. | | | | | lymph nodes (HCC) | | + +--------+ + + + documented in this encounter Results CBC with Differential (08/13/2017 9:05 AM PST) + + + + + + | Component | Value | Ref Range | Performed | Pathologist | | | | | At | Signature | + + + + + + | WBC | 3.6 (L) | 4.0 - 11.0 K/uL | [facility] | | | | | | LAB[facility]ATORY | | + + + + + + | RBC | 4.28 (L) | 4.30 - 5.70 | [facility] | | | | | M/uL | [facility] | | | | | [facility] | | | | | | [facility] - | | | | | | LABORATORY | | + + + + + + | Hemoglobin | 12.7 (L) | 13.5 - 18.0 | [facility] | | | | | g/dL | [facility] | | | | | | [facility] | | | | | | [facility] - | | | | | | LABORATORY | | + + + + + + | Hematocrit | 36.9 (L) | 40.0 - 51.0 % | [facility] | | | | | | [facility] | | [facility] | | [facility] | | | | | | [facility] - | | | | | | LAB[facility]ATORY | | + + + + + + | MCV | 86.3 | 83.0 - 101.0 fL | [facility] | | | | [facility] | | | [facility] - | | | | | | LAB[facility]ATORY | | + + + + + + | MCH | 29.7 | 28.0 - 35.0 pg | [facility] | | | | | | [facility] | | [facility] | [facility] | | | | | | [facility] - | | | | | | LAB[facility]ATORY | | + + + + + + | MCHC | 34.4 | 32.0 - 36.0 | [facility] | | | | | g/dL | [facility] | | | [facility] | [facility] | | | | | | [facility] - | | | | | | LABORATORY | | + + + + + + | RDW-CV | 15.7 (H) | <15.0 % | [facility] | | | | | [facility] | | [facility] | [facility] | | | | | | [facility] - | | | | | | LAB[facility]ATORY | | + + + + + + | Platelet | 96 (L) | 140 - 440 K/uL | [...] + + + + | % | 67.2 | 45.0 - 82.0 % | [facility] | | | Neutrophils | | | [facility] | | [facility] | | [facility] | | | | [facility] | [facility] - | | | | | | LABORATORY | | + + + + + + | % | 21.2 | 20.0 - 45.0 % | [facility] | | | Lymphocytes | | | [facility] | | | | | | [facility] | | | | | | [facility] - | | | | | | LABORATORY | | + + + + + + | % Monocytes | 7.5 | 4.0 - 12.0 % | [facility] | | | | | | [facility] | | | [facility] | [facility] | | | | | | [facility] - | | | | | | LABORATORY | | + + + + + + | % | 3.6 | 0.0 - 5.0 % | [facility] | | | Eosinophils | | | [facility] | | | | | | [facility] | | | | | | [facility] - | | | | | | LABORATORY | | + + + + + + | % Basophils | 0.5 | 0.0 - 1.0 % | [facility] | | | | | [facility] | | | | | | [facility] - | | | | | | LABORATORY | | + + + + + + | Absolute | 2.40 | 1.80 - 8.50 | [facility] | | | Neutrophils | | K/uL | [facility] | | [facility] | [facility] | | | | | | [facility] - | | | | | | LABORATORY | | + + + + + + | Absolute | 0.80 | 0.60 - 3.20 | [facility] | | | Lymphocytes | | K/uL | [facility] | | | [facility] | | [facility] | | | | | | [facility] - | | | | | | LABORATORY | | + + + + + + | Absolute | 0.30 | 0.00 - 1.00 | [facility] | | | Monocytes | | K/uL | [facility] | | | [facility] | | [facility] | | | | | | [facility] - | | | | | | LABORATORY | | + + + + + + | Absolute | 0.10 | 0.00 - 0.40 | [facility] | | | Eosinophils | | K/uL | [facility] | | | | | | [facility] | | | | | | [facility] - | | | | | | LABORATORY | | + + + + + + | Absolute | 0.00 | 0.00 - 0.10 | [facility] | | | Basophils | | K/uL | [facility] | [...] + | [facility] | [address] | [place] | [phone] | | [facility] | | [address] | | | - LABORATORY | | | | + + + + + Comprehensive Metabolic Panel (08/13/2017 9:05 AM PST) + + + + + + | Component | Value | Ref Range | Performed | Pathologist | | | | | At | Signature | + + + + + + | Na | 139 | 136 - 149 | [facility] | | | | | mmol/L | [facility] | | [facility] | [facility] | | | | | [facility] - | | | | | | LABORATORY | | + + + + + + | K | 4.2 | 3.5 - 5.1 | [facility] | | | | | mmol/L | [facility] | | | | | | [facility] | | | | | | C[facility] - | | | | | | LABORATORY | | + + + + + + | Cl | 106 | 98 - 109 mmol/L | [facility] | | | | | | [facility] | | | [facility] | [facility] | | | | | | [facility] - | | | | | | LABORATORY | | + + + + + + | CO2 | 27 | 24 - 31 mmol/L | [facility] | | | | | [facility] | | | [facility] | [facility] | | | | | | [facility] - | | | | | | LABORATORY | | + + + + + + | Anion Gap | 6 | 3 - 16 mmol/L | [facility] | | | | | | [facility] | [facility] | | | | | | [facility] - | | | | | | LABORATORY | | + + + + + + | Glucose | 131 (H) | 70 - 109 mg/dL | [facility] | | | | | [facility] | [facility] | | | | | | [facility] - | | | | | | LABORATORY | | + + + + + + | BUN | 19 (H) | 7 - 18 mg/dL | [facility] | | | | | [facility] | | | | | | [facility] | | | | | | [facility] - | | | | | | LABORATORY | | + + + + + + | Creatinine | 1.04 | 0.60 - 1.30 | [facility] | | | | | mg/dL | [facility] | [facility] | [facility] | | | | | | [facility] - | | | | | | LABORATORY | | + + + + + + | eGFR if not | >60Comment: GLOMERULAR | >=60 | [facility] | | | | FILTRATION | mL/min/1.73m2 | [facility] | | | [facility] | RATE,ESTIMATED | | MEDICAL | | | | mL/min/1.22v9Wsxt than | | CENTER - | | [...] + + + + | Calcium | 9.5 | 8.3 - 10.5 | [facility] | | | | | mg/dL | [facility] | | | | | | [facility] | | | | | | [facility] - | | | | | | LABORATORY | | + + + + + + | Albumin | 3.9 | 3.2 - 5.0 g/dL | [facility] | | | | | | [facility] | | | | | | [facility] | | | | | | [facility] - | | | | | | LABORATORY | | + + + + + + | Bilirubin | 0.6Comment: This is an | 0.1 - 1.5 [...] + + + + | Total | 6.1 | 6.0 - 7.8 g/dL | [facility] | | | Protein | | | [facility] | | | | | | [facility] | | | | | | C[facility] - | | | | | | LABORATORY | | + + + + + + | AST | 25Comment: This is an | 10 - 42 [...] + + + + | ALT | 24Comment: This is an | 6 - 45 [...] + + + + | Alkaline | 44Comment: This is an | 40 - 110 [...] + + + + | Globulin | 2.2 | 2.1 - 3.8 g/dL | [facility] | | | | | | [facility] | | | [facility] | [facility] | | | | | | [facility] - | | | | | | LABORATORY | | + + + + + + | Albumin/Pooja | 1.8 | 0.8 - 2.0 | [facility] | | | bulin Ratio | | | [facility] | | | | | | [facility] | | | | | | CENTER - | | | | | | LABORATORY | | + + + + + + | BUN/Creatin | 18.3 | | [facility] | | | ine [...] | + + + + + | [facility] | [address] | [place] | [phone] | | [facility] | | [address] | | | - LABORATORY | | | | + + + + + Lactate Dehydrogenase (08/13/2017 9:05 AM PST) + +-------+ + + + | Component | Value | Ref Range | Performed | Pathologist | | | | | At | Signature | + +-------+ + + + | LDH TOTAL | 161 | 91 - 180 U/L | [facility] | | | | | | [facility] | [address] | [place], [place] | [phone] | | [facility] | | [address] | | | - LABORATORY | | | | + + + + + documented in this encounter Visit Diagnoses + + | Diagnosis | + + | Diffuse large B-cell lymphoma of intra-abdominal lymph nodes (HCC) Other malignant | | lymphomas of intra-abdominal lymph nodes | + + | Lymphedema of left lower extremity | + + documented in this encounter Administered Medications + +--------+ +--------+------+------+ | Medication Order | MAR | Action | Dose | Rate | Site | | | Action | Date | | | | + +--------+ +--------+------+------+ | acetaminophen (TYLENOL) tablet | Given | 08/13/20 | 650 mg | | | | 650 mg 650 mg, Oral, ONCE, Mon | | 17 10:26 | | | | | 08/13/17 at 1030, For 1 dose, | | AM PST | | | | | Give 30 minutes prior to | | | | | | | riTUXimab., | | | | | | + +--------+ +--------+------+------+ +---+---+ | | | +---+---+ + +-------+ +---+---+---+ | ethyl chloride spray Topical, | Given | 08/13/20 | | | | | PRN, Pain, Starting 08/13/17 | | 17 9:14 | | | | | at 0906 | | AM PST | | | | + +-------+ +---+---+---+ +---+---+ | | | +---+---+ + +-------+ +-------+---+---+ | famotidine (PEPCID) injection | Given | 08/13/20 | 20 mg | | | | 20 mg 20 mg, Intravenous, ONCE, | | 17 10:26 | | | | | 08/13/17 at 1030, For 1 dose, | | AM PST | | | | | Prior to administration, prepare | | | | | | | a 20 mg dose by diluting 2 mL of | | | | | | | famotidine 10 mg/mL to 10 mL | | | | | | | with normal saline., | | | | | | + +-------+ +-------+---+---+ +---+---+ | | | +---+---+ + +-------+ +-------+---+---+ | heparin 100 units/mL flush | Given | 08/13/20 | 500 | | | | injection 500 Units 500 Units ( | | 2:07 | Units | | | | mL), Intracatheter, PRN, Line | | PM PST | | | | | Care, Starting 08/13/17 at | | | | | | | 1013 | | | | | | + +-------+ +-------+---+---+ +---+---+ | | | +---+---+ + +---------+ + +---+---+ | riTUXimab (RITUXAN) 1,000 mg in | New Bag | 08/13/20 | 1,000 mg | | | | sodium chloride 0.9% 1,000 mL | | 17 10:41 | | | | | infusion 1,000 mg (rounded from | | AM PST | | | | | 997.5 mg = 375 mg/m2 | | | | | | | 2.66 m2 Treatment plan recorded | | | | | | | BSA), Intravenous, ONCE, Mon | | | | | | | 08/13/17 at 1100, For 1 dose, | | | | | | | Initial infusion: Start at 50 | | | | | | | mg/hr. If no reaction, increase | | | | | | | by 50 mg/hr increments every 30 | | | | | | | min, to a maximum of 400 mg/hour. | | | | | | | Subsequent infusions (if | | | | | | | tolerated initial): Start at 100 | | | | | | | mg/hr. If no reaction, increase | | | | | | | by 100 mg/hr increments every 30 | | | | | | | min, to a maximum of 400 mg/hour. | | | | | | | If reaction occurs, stop | | | | | | | infusion. If reaction abates, | | | | | | | restart infusion at 50% of | | | | | | | previous rate., | | | | | | + +---------+ + +---+---+ +---+---+ | | | +---+---+ documented in this encounter"
--- OUTSIDE RECORDS SUMMARY | ~2019-09-27 | XMS | Encounter Summary ---
Demographics + + + | Address | [address] | | | [place] [address] | + + + | Home Phone | | + + + | Preferred Language | Unknown | + + + | Marital Status | | + + + | Uatsdin Affiliation | 1013 | + + + | Race | Unknown | + + + | Ethnic Group | Unknown | + + + Author + + + | Author | [facility] | | | and [place] | + + + | Organization | [facility] | | | and [...] [place] | | | | | [address] | | + + + + + Care Team Providers + +------+ + | Care Burr Sander Name | Role | Phone | + [...] + + | 08/14/ | Hospital | [facility] | [facility], | Diffuse large B-cell | | 2016 | Encounter | [facility] | Joaquim Benson MD [address] | lymphoma of | | | | [facility]OGY CLINIC [address] [place] | intra-abdominal | | | | [address] [place] | [place] [address] | lymph nodes (HCC) | | | | [place] [address] | [phone] | (Primary Dx) | | | | [phone] | | | +--------+ + + + [...] + + + | Blood Pressure | 133/85 | 08/14/2016 8:52 AM | | | | | PST | | + + + + + | Pulse | 59 | 08/14/2016 8:52 AM | | | | | PST | | + + + + + | Temperature | 35.8 C (96.5 F) | 08/14/2016 8:52 AM | | | | | PST | | + + + + + | Respiratory Rate | 18 | 08/14/2016 8:52 AM | | | | | PST | | + + + + + | Oxygen Saturation | 96% | 08/14/2016 8:52 AM | | | | | PST | | + + + + + | Inhaled Oxygen | - | - | | | Concentration | | | | + + + + + | Weight | 135.7 kg (299 lb 3.2 | 08/14/2016 8:52 AM | | | | oz) | PST | | + + + + + | Height | - | - | | + + + + + | Body Mass Index | 38.42 | 07/18/2016 4:16 PM | | | | | PDT | | + + + + + documented in this encounter Discharge Instructions Instructions Joaquim Tejeda MD - 08/14/2016Take one ondansetron twice a day tom and Sunday, then one every eight hours as needed for nausea. Also try taking lorazepam 1 mg orally every 4 hours as needed for nausea-careful because lo razepam will make you sleepy. See Sarah tomorrow at [place] for your Neulasta injection, remember to check in at adm itting first. documented in this encounter Medications at Time [...] encounter Progress Notes Joaquim Tejeda MD - 08/14/2016 8:31 AM PSTFormatting of this note might be differe nt from the original. Hematology/Oncology Progress Note [place], [place] Pt. Name/Age/: Joaquim Galindo 66 y.o. 1950 Med. Record Number: [id number] Date of admission: 08/14/2016 Identifying Statement: Joaquim Galindo is a 66 y.o. male from [address] [place] [address] with Diffuse Large B-Cell Lymphoma. The patient [...] Left lower extremity venous doppler 2016 ([facility]) No DVT left lower extremity. CT abdomen/Pelvis with contrast 2016 ([facility]). Ex tensive periaortic lymphadenopathy (1.8 cm and 2.1 cm respectively), extensive adenopathy ex tending out along the left common iliac artery and encasing the left external iliac artery ( 4.4 cm) with compromise of the left external iliac vein. 2. Open laparotomy with LEFT ileal retroperitoneal lymph node biopsy ([place], [facility]) June 242015. Specimen #[id number] ([facility]); Diffuse Large B-Cell lymph raciel, germinal [...] RCHOP plus Neulasta on August 14, 2016. Current Assessment & Plan Joaquim Atkinson" returned to clinic on 08/14/2016 with his Juvenal, for fol low up and Cycle#2 RCHOP chemotherapy. Interval history is notable for the fact that Rios underwent placement of a RIGHT internal jugular port-a-cath by Dr. Morton on August 10, 2016. Review of systems is notable for palpitations and dyspnea on exertion; left lower extremity edema is now more variable. Clinical exam is notable for persistent left lower extremity lymphedema. Laboratory exam is notable for leukopenia, which is not dose-limiting. Assessment; Diffuse Large B-Cell Lymphoma, at least Stage III. Plan; Proceed today with Cycle #2 of a planned 6 cycles of RCHOP chemotherapy. Neulasta to be administered tomorrow at [facility] in [place], [place]. Patient will exhaust his current supply of allopurinol, then discontinue the medication. Review of Systems: Constitutional: Reports energy level is slightly better, had been lower. Reports after chem o had chills and hands felt cold. Reports intermittent nausea, relief from medications. Repo rts one episode of night sweats. Reports appetite is good- still eats 3 meals per day. Denie s high fevers, anorexia, vomiting, weight loss. Ear, Nose, Mouth, Throat: Denies odynophagia, dysphagia, or tinnitus. Cardiovascular: Reports dyspnea on exertion and palpitations when moving belongings in the past weeks. Denies shortness of breath, chest pain, or orthopnea. Respiratory: Denies cough, hemoptysis, or sputum production. Gastrointestinal: Reports constipation is intermittent, diarrhea for one day only in last w [place]. Denies abdominal pain, melena, or bright red blood per rectum. Genitourinary: Denies hematuria or dysuria. Musculoskeletal: Reports bone ache after having injection after chemo last time, symptoms r esolved now. Neurologic: Reports vision is blurry intermittently. Reports numbness and tingling in feet that seems slightly worse than his normal. Denies headache. Endocrine: Reports swelling in left lower extremity continues- "It goes up and goes down". Denies heat/cold intolerance. Hematologic: Denies spontaneous bruising or bleeding. Integumentary: Reports small bumps on left forearm. Denies rash or wounds. Pain: Denies pain. Note: Here for follow up, labs and 6 hour treatment. My chart: active Scheduled Medications: Current Outpatient Prescriptions Medication Sig Dispense Refill allopurinol (ZYLOPRIM) 300 mg tablet Take 1 tablet by mouth Daily. 30 tablet 0 aspirin 81 mg EC tablet Take 162 mg by mouth Daily. carvedilol (COREG) 25 mg tablet Take 50 [...] 5 omeprazole (PRILOSEC) 20 mg capsule Take 40 mg by mouth every morning (before breakfast ). ondansetron (ZOFRAN) 8 MG tablet Take 1 tablet by mouth 2 times daily. For two days aft er each chemo and then may take one tab every 8 hours if needed for nausea 30 tablet 3 predniSONE (DELTASONE) 20 mg tablet Take 5 tablets by mouth Daily for 5 days. 25 tablet 4 traMADol (ULTRAM) 50 mg tablet XARELTO 10 MG tablet Take 1 tablet by mouth Daily for 30 days. (Patient taking differen tly: Take 10 mg by mouth Daily. Stopped until 08/17/2016.) 30 tablet 5 No current facility-administered medications for this encounter. Facility-Administered Medications Ordered in Other Encounters Medication Dose Route Frequency Provider Last Rate Last Dose cyclophosphamide (CYTOXAN) 2,000 mg in sodium chloride 0.9% 250 mL chemo infusion 750 mg/m2 (Treatment Plan Actual) Intravenous Once Joaquim Tejeda MD DOXOrubicin (ADRIAMYCIN) 133 mg in sodium chloride 0.9% 250 mL chemo infusion 50 mg/m2 (Treatment Plan Actual) Intravenous Once Joaquim Tejeda MD heparin 100 units/mL flush injection 500 Units 5 mL Intercatheter PRN Joaquim robles MD vinCRIStine (ONCOVIN) 2 mg in sodium chloride 0.9% 25 mL chemo infusion 2 mg Intraveno us Once Joaquim Tejeda MD Allergies: Allergy: Allergies Allergen Reactions Codeine "wires him up" Past Medical and Surgical History, Social History and Problems: Past Medical History Diagnosis Date Chronic ischemic heart disease Depression Dyspnea Esophageal reflux Hyperglycemia Hyperlipemia Hypertension Benign neoplasm of colon Obesity Superficial injury of forearm Past Surgical History Procedure Laterality Date Cholecystectomy Knee surgery Bilateral Tonsillectomy and adenoidectomy Inguinal hernia repair incarcerated Stent 2014 [facility] Social History Social History Marital Status: Spouse [...] lymphoma of intra-abdominal lymph nodes Objectives: Temp: 35.8 C (96.5 F) BP: 133/85 mmHg Pulse: 59 Resp: 18 SpO2: 96 % on Min/Max Temp past 24 hours:Temp Av.8 C (96.5 F) Min: 35.8 C (96.5 F) Max: 3 5.8 C (96.5 F) No intake or output data in the 24 hours ending 08/14/16 1241 Wt. Admission: Weight: 135.716 kg (299 lb 3.2 oz) Wt. Current: Weight: 135.716 kg (299 lb 3.2 oz) Wt Readings from Last 3 Encounters: 08/14/16 135.716 kg (299 lb 3.2 oz) 08/03/16 134.854 kg (297 lb 4.8 oz) 07/25/16 135.217 kg (298 lb 1.6 oz) Physical Exam: General: The patient is [...] in Am. J. Clin. Oncol.: Davida Ma., Brittney Luque., Andie Menezes., Donal Trejo, Vy Rodriguez., Armando Diamond., Fatoumata, P .P.: Toxicity And [...] in the Assessment and Plan. Results for DANIEL JOAQUIM ( ) as of 08/14/2016 12:41 Ref. Range 08/14/2016 08:16 WBC Latest Ref Range: 4.0-11.0 K/uL 2.3 (LL) RBC: Latest Ref Range: 4.30-5.70 M/uL 3.61 (L) Hgb Latest Ref Range: 13.5-18.0 g/dL 10.8 (L) Hct, Final Latest Ref Range: 40.0-51.0 % 31.1 (L) MCV Latest Ref Range: 83.0-101.0 fL 86.1 MCH Latest Ref Range: 28.0-35.0 pg 30.0 MCHC Latest Ref Range: 32.0-36.0 g/dL 34.9 RDW-CV Latest Ref Range: <15.0 % 17.8 (H) Platelet Count Latest Ref Range: 140-440 K/uL 128 (L) MPV Latest Units: fL 8.7 Absolute Neutrophils Latest Ref Range: 1.80-8.50 K/uL 1.40 (L) Absolute Lymphocytes Latest Ref Range: 0.60-3.20 K/uL 0.70 Absolute Monocytes Latest Ref Range: 0.00-1.00 K/uL 0.20 Absolute Eosinophils Latest Ref Range: 0.00-0.40 K/uL 0.00 Absolute Basophils Latest Ref Range: 0.00-0.10 K/uL 0.00 % Neutrophils Latest Ref Range: 45.0-82.0 % 60.8 % Lymphocytes Latest Ref Range: 20.0-45.0 % 29.0 % Monocytes Latest Ref Range: 4.0-12.0 % 9.2 % Eosinophils Latest Ref Range: 0.0-5.0 % 0.7 % Basophils Latest Ref Range: 0.0-1.0 % 0.3 NA Latest Ref Range: 136-149 mmol/L 140 K Latest Ref Range: 3.5-5.1 mmol/L 3.6 Chloride Latest Ref Range: 98-109 mmol/L 107 Carbon dioxide Latest Ref Range: 24-31 mmol/L 27 ANION GAP Latest Ref Range: 3-16 mmol/L 6 GLUCOSE Latest Ref Range: 70-109 mg/dL 126 (H) BUN Latest Ref Range: 7-18 mg/dL 16 BUN/CREA Unknown 17.8 Creatinine Latest Ref Range: 0.60-1.30 mg/dL 0.90 ALBUMIN Latest Ref Range: 3.2-5.0 g/dL 3.5 Albumin/Globulin ratio Latest Ref Range: 0.8-2.0 1.6 Total protein Latest Ref Range: 6.0-7.8 g/dL 5.7 (L) EGFR IF NOT Latest Ref Range: >=60 mL/min/1.73m2 >60 Calcium Latest Ref Range: 8.3-10.5 mg/dL 9.5 URIC ACID Latest Ref Range: 2.6-7.2 mg/dL 4.5 ALK PHOS Latest Ref Range: 40-110 U/L 45 ALT (SGPT) (REF) Latest Ref Range: 6-45 U/L 21 AST (SGOT) (REF) Latest Ref Range: 10-42 U/L 22 LDH TOTAL Latest Ref Range: 91-180 U/L 154 BILIRUBIN TOTAL Latest Ref Range: 0.1-1.5 mg/dL 0.3 GLOBULIN Latest Ref Range: 2.1-3.8 g/dL 2.2 Pharmacovigilance: Palliative Care: Patient's Medications New Prescriptions PREDNISONE (DELTASONE) 20 MG TABLET Take 5 tablets by mouth Daily for 5 days. Modified Medications No medications on file Discontinued Medications ATORVASTATIN (LIPITOR) 40 MG TABLET Procedure: Day 1, Cycle 2 (21-day cycle) Released on 08/14/2016 9:36; Originally planned for 2015 Labs Lactate Dehydrogenase STAT, ONE TIME, Sun08/14/16 at 0816, For 1 occurrence OrderHistory Uric Acid STAT, ONE TIME, Sun08/14/16 at 0816, For 1 occurrence OrderHistory Beta 2 Microglobulin STAT, ONE TIME, Sun08/14/16 at 0816, For 1 occurrence OrderHistory Comprehensive Metabolic Panel STAT, ONE TIME, Sun08/14/16 at 0816, For 1 occurrence OrderHistory CBC with Differential STAT, ONE TIME, Sun08/14/16 at 08, For 1 occurrence OrderHistory Nursing Orders OK to proceed with chemotherapy 08/14/16 - INFORMED CONSENT: The nature and character of the proposed treatment with Cycle #2 RCHOP wi th neulasta tomorrow in [place] and the anticipated results of the proposed treatment with Cycle #2 RCHOP with neulasta tomorrow in [place];recognized alternative forms of treatmen t, including non-treatment; the risks benefits, and side effects of proposed treatment, alte rnative treatments and non-treatment were discussed with the patient who consents to proceed with treatment with Cycle #2 RCHOP with neulasta tomorrow in [place]. The treating provid er has examined the patient and reviewed the diagnostic data, including laboratory data, and deems that it is safe and appropriate to proceed with treatment with Cycle #2 RCHOP with ne ulasta tomorrow in [place].JOAQUIM TEJEDA MD. OrderHistory Plans for discharge MAKE SURE HE STARTS ON THE PREDNISONE tomorrow. . arrange neulasta in [place] with Dora for day 2- fax her orders. QFU CBC,CMP,LDH ARM DRAW IN 10 DAYS FOR AGUSTIN CHECK QFU CBC,CMP,LDH * PORT DRAW AND 6 HOUR RX OrderH istory Pre-Medications acetaminophen (TYLENOL) tablet 650 mg 650 mg, Oral, ONCE, Sun08/14/16 at 1000, For 1 dose Give 30 minutes prior to riTUXimab. OrderHistory diphenhydrAMINE (BENADRYL) injection 25 mg 25 mg, Intravenous, ONCE, Sun08/14/16 at 1000, For 1 dose OrderHistory ondansetron (ZOFRAN) 8 mg, dexamethasone (DECADRON) 4 mg in sodium chloride 0.9% 50 m L IVPB Intravenous, for 16 Minutes, ONCE, Sun08/14/16 at 1000, For 1 dose OrderHistory fosaprepitant (EMEND) 150 mg in sodium chloride 0.9% 150 mL IVPB 150 mg, Intravenous, for 20 Minutes, ONCE, Sun08/14/16 at 1015, For 1 dose Do not shake bag. Administer prior to chemotherapy. OrderHistory CHEMOTHERAPY riTUXimab (RITUXAN) 1,000 mg in sodium chloride 0.9% 1,000 mL infusion 1,000 mg (rounded from 997.5 mg = 375 mg/m2 2.66 m2 Treatment plan actual BSA), Intr avenous, ONCE, Sun08/14/16 at 1030, For 1 dose Initial infusion: Start at [...] infusion at 50% of previous rate. OrderHistory vinCRIStine (ONCOVIN) 2 mg in sodium chloride 0.9% 25 mL chemo infusion 2 mg (original dose 1.4 mg/m2), Intravenous, for 10 Minutes, ONCE, Sun08/14/16 at 1400 , For 1 dose Chemotherapy: Use appropriate handling precautions. Vesicant. For IV use only. Fatal if giv en by other routes. OrderHistory DOXOrubicin (ADRIAMYCIN) 133 mg in sodium chloride 0.9% 250 mL chemo infusion 133 mg (50 mg/m2 2.66 m2 Treatment plan actual BSA), Intravenous, for 30 Minutes, ON CE, Sun08/14/16 at 1430, For 1 dose Chemotherapy: Use appropriate handling precautions. Vesicant. Protect from light. OrderHistory cyclophosphamide (CYTOXAN) 2,000 mg in sodium chloride 0.9% 250 mL chemo infusion 2,000 mg (rounded from 1,995 mg = 750 mg/m2 2.66 m2 Treatment plan actual BSA), Intr avenous, for 60 Minutes, ONCE, Sun08/14/16 at 1500, For 1 dose Chemotherapy: Use appropriate handling precautions. OrderHistory Post-Medications heparin 100 units/mL flush injection 500 Units 500 Units (5 mL), Intercatheter, PRN, Line Care, Starting Sun08/14/16 at 0936 Order History PRN Medications LORazepam (ATIVAN) injection 1 mg 1 mg, Intravenous, EVERY 4 HOURS PRN, Anxiety, Starting when released, Until Discontinu ed OrderHistory Infusion Reaction Orders Monitor patient Monitor patient during riTUXimab infusion for fever, chills, rigors, bronchospasm, darion na, edema, hypotension, nausea. OrderHistory meperidine (DEMEROL) 25 mg/mL injection 25 mg 25 mg, Intravenous, EVERY 2 HOURS PRN, severe chills/rigors with riTUXimab, Starting wh en released, for 24 hours OrderHistory Stop infusion if: Stop infusion if an infusion reaction is suspected (pruritis, flushing, rhinitis, fever , rash, back pain, dyspnea). Notify MD. OrderHistory Check vital signs Check vital signs q5 minutes until back to baseline, then q15 minutes until resolution of symptoms. OrderHistory Start oxygen Start oxygen at 6-8 LPM for O2 <= 90%. OrderHistory diphenhydrAMINE (BENADRYL) injection 25 mg 25 mg, Intravenous, EVERY 15 MIN PRN, Infusion reaction, Starting when released, for 2 doses Administer as needed for infusion reaction. OrderHistory methylPREDNISolone sodium succinate (solu-MEDROL) 62.5 mg/mL injection 125 mg 125 mg, Intravenous, ONCE PRN, infusion reaction, Starting when released, for 1 dose Administer as needed for infusion reaction. Choose only one steroid. Mix with 2 mL provided diluent to make 62.5 mg/mL. OrderHistory dexamethasone (DECADRON) 20 mg in sodium chloride 0.9% 50 mL IVPB 20 mg, Intravenous, for 15 Minutes, ONCE PRN, infusion reaction, Starting when released , for 1 dose Administer as needed for infusion reaction. Choose only one steroid. OrderHistory Resume infusion if: Resume infusion when symptoms resolve, as directed by MD. OrderHistory Nursing Orders Anaphylaxis orders Add order group [facility] ANAPHYLAXIS TREATMENT if a severe hypersensitivity reaction or anap hylaxis is suspected (bronchospasm, stridor, wheezing, respiratory depression, cardiac arrhy thmia, generalized urticaria, SBP <= 80 mm Hg or 30 mm Hg drop from baseline, angioedema, sh ock, loss of consciousness). Stop infusion, activate mikayla zamora and notify MD. Yuriy TEJEDA MD Portions of this chart may have been created with [employer] voice recognition software. Occasi onal wrong-word or [...] | | | | | [place], [place] | | | | | | [address] | | | | | | | | +--------+---------+ + + + documented as of this encounter Visit Diagnoses + + | Diagnosis | + + | 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
--- OUTSIDE RECORDS SUMMARY | ~2019-09-27 | XMS | Encounter Summary ---
Demographics + + + | Address | [address] | | | [place] [address] | + + + | Home Phone | | + + + | Preferred Language | Unknown | + + + | Marital Status | | + + + | Pentecostalism Affiliation | 1013 | + + + | Race | Unknown | + + + | Ethnic Group | Unknown | + + + Author + + + | Author | [facility] | | | and [place] | + + + | Organization | [facility] | | | and [...] [place] | | | | | [address] | | + + + + + Care Team Providers + +------+ + | Care Manager Merchandising Name | Role | Phone | + +------+ + | Earle Chacko MD | PCP | | + +------+ + Encounter Details +--------+ + + + + | Date | Type | Department | Care Team | Description | +--------+ + + + + | 04/18/ | Hospital | [facility] | Miguel Zuniga | 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 | | | | INFUS[address] [place] | intra-abdominal | | | | [place], | [place] [address] | lymph nodes (HCC) | | | | [place] [address] | [phone] | | | | | [phone] | | | +--------+ + + + [...] tablet by | 20 | 5 | 02/27/20 | | | 1 mg | mouth every 6 hours | tablet | | 17 | [...] | | | | | [place], [place] | | | | | | [address] | | | | | | | | +--------+---------+ + + + documented as of this encounter Visit Diagnoses + + | Diagnosis | + + | Diffuse large B-cell lymphoma of intra-abdominal lymph nodes (HCC) Other malignant | | lymphomas of intra-abdominal lymph nodes | + + documented in this encounter Administered Medications + +--------+ +-------+------+------+ | Medication Order | MAR | Action | Dose | Rate | Site | | | Action | Date | | | | + +--------+ +-------+------+------+ | heparin 100 units/mL flush | Given | 04/18/20 | 500 | | | | injection 500 Units 500 Units (5 | | 17 11:08 | Units | | | | mL), Intracatheter, PRN, Line | | AM PDT | | | | | Care, Starting 04/18/17 at | | | | | | | 1103 | | | | | | + +--------+ +-------+------+------+ +---+---+ | | | +---+---+ documented in this encounter"
--- OUTSIDE RECORDS SUMMARY | ~2019-09-27 | XMS | Encounter Summary ---
Demographics + + + | Address | [address] | | | [place] [address] | + + + | Home Phone | | + + + | Preferred Language | Unknown | + + + | Marital Status | | + + + | Church Affiliation | 1013 | + + + [...] [place] | | | | | [address] | | + + + + + Care Team Providers + +------+ + | Care Template Checker Name | Role | Phone | + [...] + + | 08/14/ | Hospital | [facility] | [facility], | Diffuse large B-cell | | 2016 | Encounter | [facility] CTR [facility] | Joaquim Benson MD [address] | lymphoma of | | | | [facility]OGY CLINIC [address] [place] | intra-abdominal | | | | [address] [place] | [place] [address] | lymph nodes (HCC) | | | | [place] [address] | [phone] | (Primary Dx) | | | | [phone] | | | +--------+ + + + [...] make you sleepy. See Sarah tomorrow at [place] for your Neulasta injection, remember to check [...] nt from the original. Hematology/Oncology Progress Note [place], [place] Pt. Name/Age/: Joaquim Galindo 66 y.o. 1950 Med. Record Number: [id number] Date of admission: 08/14/2016 Identifying Statement: Joaquim Galindo is a 66 y.o. male from [address] [place] [address] with Diffuse Large B-Cell Lymphoma. The patient [...] lower extremity. CT abdomen/Pelvis with contrast 2016 ([facility]). Ex tensive periaortic lymphadenopathy (1.8 cm and 2.1 cm respectively), extensive adenopathy ex tending out along the left common iliac artery and encasing the left external iliac artery ( 4.4 cm) with compromise of the left external iliac vein. 2. Open laparotomy with LEFT ileal retroperitoneal lymph node biopsy ([place], [facility]) June 242015. Specimen #[id number] ([facility]); Diffuse Large B-Cell lymph [...] chemotherapy. Neulasta to be administered tomorrow at [facility] in [place], [place]. Patient will exhaust his current supply [...] for one day only in last w [place]. Denies abdominal pain, melena, or bright red [...] adenoidectomy Inguinal hernia repair incarcerated Stent 2014 [facility] Social History Social History Marital Status: [...] this chart may have been created with [employer] voice recognition software. Occasi onal wrong-word or [...] | | | | | [place], [place] | | | | | | [...]
--- OUTSIDE RECORDS SUMMARY | ~2019-09-27 | XMS | Encounter Summary ---
Demographics + + + | Address | [address] | | | [place] [address] | + + + | Home Phone | | + + + | Preferred Language | Unknown | + + + | Marital Status | | + + + | Adventist Affiliation | 1013 | + + + | Race | Unknown | + + + | Ethnic Group | Unknown | + + + Author + + + | Author | Located Within [facility] | | | and [place] | + + + | Organization | Located Within [facility] | | [...] [place] | | | | | [address] | | + + + + + Care Team Providers + +------+ + | Care Associate Director Finance Name | Role | Phone | + [...] Description | +--------+---------+ + + + | 08/28/ | Office | [facility] | Mohamud, | Lymphedema of left | | 2016 | Visit | MED CNT ONCOLOGY | Gerber Benson MD [address] | lower extremity | | | | THERAPY [address] | [address] [place] | (Primary Dx) | | | | [place], | [place] [address] | | | | | [place] [address] | [phone] | | | | | [phone] | | | | | | | [...] documented as of this encounter Progress Notes Olviia Portillo OT - 08/28/2016 1:07 PM PST [facility] OP [address] [place] [address] Occupational Therapy Daily Treatment Note Date: 08/28/2016 Patient Information Patient Name: Gerber Galindo Date of : 1950 Age: 66 y.o. History Encounter Diagnoses Code Name Primary? I89.0 Lymphedema of left lower extremity Yes Date of Onset: 2016 Referring Provider: Gerber Mallory MD Rehab Precautions Office Visit from 08/24/2016 in [facility] OP Rehab Precautions Precautions None Rehab Learning Style Office Visit from 08/24/2016 in [facility] Learning Style Patient's Optimum Learning Style performance of task, reading Today's Treatment Start Time: 1400 Stop time: 1500 Duration: 60 minutes Timed Treatment Codes: 60 minutes # of OT Visits: 2 Subjective: "The swelling in my leg was way down when I took those wraps off. It felt gre at. It's back up though after doing 2 days of lots of activity." Pain Assessment: Objective Performed, with review for patient, MLM to abdomen, pelvis, and LLE. Measured for thigh hi gh and knee high compression garments and provided education re: recommended schedule of wea ring. Performed compression wrap, with review instruction to patient's spouse, to LLE foot to knee. Assessment Contd firm, pitting edema in LLE. Some mild edema noted inferior to L buttock. Emphasized to patient importance of encouraging flow out from pelvic area. Patient and spouse to orde r garments on own - provided them with correct sizing and ordering information. They both d emonstrate good understanding; however, are still hopeful that body will self-correct lymph flow with chemotherapy action on lymph nodes. Discussed can be difficult for lymph system t o maintain appropriate balance after impact. Plan Patient to return to cancer center on 09/04 for infusion. Will have f/u session that day. Patient to bring compression garments if he has received them by then. Electronically signed by: Olivia Portillo OT, 08/28/2016 13:07 Patient Name: Gerber Galindo/: 1950/ documented in this encounter Plan of Treatment +--------+---------+ + + + | Date | Type | Specialty | Care Team | Description | +--------+---------+ + + + | 10/01/ | Office | Cardiology | Karen Bansal, | | | 2019 | Visit | | MD Patricia [address] | | | | | | [place] | | | | | | [address] | | | | | | | | +--------+---------+ + + + documented as of this encounter Visit Diagnoses + + | Diagnosis | + + | Lymphedema of left lower extremity - Primary | + + documented in this encounter
--- OUTSIDE RECORDS SUMMARY | ~2019-09-27 | XMS | Encounter Summary ---
Demographics + + + | Address | [address] | | | [place] [address] | + + + | Home Phone | | + + + | Preferred Language | Unknown | + + + | Marital Status | | + + + | Judaism Affiliation | 1013 | + + + [...] [place] | | | | | [address] | | + + + + + Care Team Providers + +------+ + | Care Automated Weaver Name | Role | Phone | + [...] large b-cell | Gerber Benson, | [address] | | | | | lymphoma, | MD [address] | [place], | | | | | intra-abdomi | [address] | [place] [address] | | | | | nal lymph | [place], | Phone: | | | | | nodes (HCC) | [place] [address] | [phone] | | | | | Procedures | Phone: | Fax: | | | | | [place] | [phone] | [phone] | | | | | INJECTION, | Fax: | | | | | | FAMOTIDINE, | [phone] | | | | | | 20 MG [place] | | | | | | | RITUXIMAB | | | | | | | INJECTION, | | | | | | | 100 MG [place] | | | | | | | LORAZEPAM | | | | | | | INJECTION, 2 | | | | | | | MG [place] | | | | | | | MEPERIDINE | | | | | | | HYDROCHL | | | | | | | /100 MG [place] | | | | | | | DIPHENHYDRAM | | | | | | | INE HCL | | | | | | | INJECTIO, 50 | | | | | | | MG [place] | | | | | | | METHYLPREDNI | | | | | | | SOLONE | | | | | | | INJECTION, | | | | | | | 125 MG [place] | | | | | | | DEXAMETHASON | | | | | | | E SODIUM | | | | | | | PHOS, 1 MG | | | | | | | [place] NORMAL | | | | | | | SALINE | | | | | | | SOLUTION | | | | | | | INFUS, 500 | | | | | | | ML [place] | | | | | | | NORMAL | | | | | | | SALINE | | | | | | | SOLUTION | | | | | | | INFUS, 250 | | | | | | | ML [place] | | | | | | | STERILE | | | | | | | WATER/SALINE | | | | | | | , 10 ML [place] | | | | | | | CHEMOTHER, | | | | | | | IV PUSH,EA | | | | | | | ADD DRUG [place] | | | | | | | CHEMOTHER, | | | | | | | IV INFUSION, | | | | | | | 1 HR [place] | | | | | | | CHEMOTHER, | | | | | | | IV INFUSION, | | | | | | | EA HR [place] | | | | | | | CHEMOTHER,NO | | | | | | | N-HORMONE | | | | | | | ANTI-NEOPL, | | | | | | | SUB-Q/IM [place] | | | | | | | [...] | +--------+ + + + + | 03/25/ | Hospital | [facility] | Mohamud, | 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 | | | | | + + + +---------+ + + | LORazepam (ATIVAN) | Take 1 mg by mouth | | 0 | | | | 1 mg tablet | Daily as needed for | | | | 8 | | | Anxiety. | | | | | + + + +---------+ + + documented as of this encounter Progress Hanh Wilhelm RN - 03/25/2018 1:10 PM PDTPatient discharged in satisfactory conditi on. Discharged ambulatory. With family. To home. Verified that patient has antinausea medications at home. Future appointments and After Visit Summary (AVS) provided. documented in thi s encounter Plan of Treatment +--------+---------+ + + + | Date | Type | Specialty | Care Team | Description | +--------+---------+ + + + | 10/01/ | Office | Cardiology | Karen Banasl, | | | 2019 | Visit | | MD Patricia [address]NS[address] | | | | | | [place] | | | | | | [address] | | | | | | | | +--------+---------+ + + + documented as of this encounter Procedures + +--------+ + + + | Procedure Name | Priori | Date/Time | Associated Diagnosis | Comments | | | ty | | | | + +--------+ + + + | CBC WITH | STAT | 03/25/2018 | Diffuse large | Results for this | | DIFFERENTIAL | | 8:05 AM | B-cell lymphoma of | procedure are in the | | | | PDT | intra-abdominal | results section. | | | | | lymph nodes (HCC) | | + +--------+ + + + | LACTATE | STAT | 03/25/2018 | Diffuse large | Results for this | | DEHYDROGENASE | | 8:05 AM | B-cell lymphoma of | procedure are in the | | | | PDT | intra-abdominal | results section. | | | | | lymph nodes (HCC) | | + +--------+ + + + | COMPREHENSIVE | STAT | 03/25/2018 | Diffuse large | Results for this | | METABOLIC PANEL | | 8:05 AM | B-cell lymphoma of | procedure are in the | | | | PDT | intra-abdominal | results section. | | | | | lymph nodes (HCC) | | + +--------+ + + + documented in this encounter Results CBC with Differential (03/25/2018 8:05 AM PDT) + + + + + + | Component | Value | Ref Range | Performed | Pathologist | | | | | At | Signature | + + + + + + | WBC | 3.1 (L) | 4.0 - 11.0 K/uL | [facility] | | | | | | [facility]ATORY | | + + + + + + | RBC | 4.53 | 4.30 - 5.70 | [facility] | | | | | M/uL | [facility] | | [facility] | [facility] | | | | | [facility] - | | | | | | LABORATORY | | + + + + + + | Hemoglobin | 13.5 | 13.5 - 18.0 | [facility] | | | | | g/dL | [facility] | | | [facility] | [facility] | | | | | | [facility] - | | | | | | LABORATORY | | + + + + + + | Hematocrit | 39.4 (L) | 40.0 - 51.0 % | [facility] | | | | [facility] | [facility] | | | | | | [facility] - | | | | | | LABORATORY | | + + + + + + | MCV | 87.0 | 83.0 - 101.0 fL | [facility] | | | | [facility] | | | | | [facility] - | | | | | | LABORATORY | | + + + + + + | MCH | 29.8 | 28.0 - 35.0 pg | [facility] | | | | | [facility] | | [facility] | [facility] | | | | | | [facility] - | | | | | | LABORATORY | | + + + + + + | MCHC | 34.3 | 32.0 - 36.0 | [facility] | | | | | g/dL | [facility] | | | [facility] | [facility] | | | | | | [facility] - | | | | | | LABORATORY | | + + + + + + | RDW-CV | 16.0 (H) | <15.0 % | [facility] | | | [facility] | | | | | | [facility] - | | | | | | LABORATORY | | + + + + + + | Platelet | 111 (L) | 140 - 440 K/uL | [facility] | | | Count | | | [facility] | | | | | | [facility] | | | | | | [facility] - | | | | | | LABORATORY | | + + + + + + | MPV | 9.2 | fL | [facility] | | | | | [facility] | [facility] | | | | | | [facility] - | | | | | | LAB[facility]ATORY | | + + + + + + | % | 67.7 | 45.0 - 82.0 % | [facility] | | | Neutrophils | | | [facility] | | | | | | [facility] | | | | | | [facility] - | | | | | | LABORATORY | | + + + + + + | % | 22.6 | 20.0 - 45.0 % | [facility] | | | Lymphocytes | | | [facility] | | | | | | [facility] | | | | | | [facility] - | | | | | | LABORATORY | | + + + + + + | % Monocytes | 6.8 | 4.0 - 12.0 % | [facility] | | | | | [facility] | [facility] | [facility] | | | | | | [facility] - | | | | | | LABORATORY | | + + + + + + | % | 2.3 | 0.0 - 5.0 % | [facility] | | | Eosinophils | | | [facility] | | | | | | [facility] | | | | | | [facility] - | | | | | | LABORATORY | | + + + + + + | % Basophils | 0.6 | 0.0 - 1.0 % | [facility] | | | | | [facility] | | | [facility] | [facility] | | | | | | [facility] - | | | | | | LABORATORY | | + + + + + + | Absolute | 2.10 | 1.80 - 8.50 | [facility] | | | Neutrophils | | K/uL | [facility] | | | | | | [facility] | | | | | | [facility] - | | | | | | LABORATORY | | + + + + + + | Absolute | 0.70 | 0.60 - 3.20 | [facility] | [...] + | [facility] | [address] | [place] | [phone] | | [facility] | | [address] | | | - LABORATORY | | | | + + + + + Comprehensive Metabolic Panel (03/25/2018 8:05 AM PDT) + + + + + [...] + + + + | K | 3.8 | 3.5 - 5.1 | [facility] | | | | | mmol/L | [facility] | | | [facility] | | [facility] | | | | | | [facility] - | | | | | | LABORATORY | | + + + + + + | Cl | 107 | 98 - 109 mmol/L | [facility] [...] + + + + | Glucose | 125 (H) | 70 - 109 mg/dL | [facility] | | | | | [facility] | | [facility] | [facility] | [facility] | | | | | | [facility] - | | | | | | LABORATORY | | + + + + + + | BUN | 17 | 7 - 18 mg/dL | [facility] | | | | | [facility] | | | [facility] | [facility] | | | | | | [facility] - | | | | | | LABORATORY | | + + + + + + | Creatinine | 1.00 | 0.60 - 1.30 | [facility] | [...] mL/min/1.73m2 | [facility] | | | [facility] | RATE,ESTIMATED | | MEDICAL | | | | mL/min/1.54r4Ouox than | | CENTER - | | [...] + + + + | Calcium | 9.8 | 8.3 - 10.5 | [facility] | | | | | mg/dL | [facility] | | | | | | [facility] | | | | | | CENTER - | | | | | | LABORATORY | | + + + + + + | Albumin | 3.7 | 3.2 - 5.0 g/dL | [facility] | | | | | | [facility] | | | | | | [facility] | | | | | | [facility] - | | | | | | LABORATORY | | + + + + + + | Bilirubin | 0.8Comment: This is an | 0.1 - 1.5 [...] + + + + | AST | 23Comment: This is an | 10 - 42 [...] + + + + | Alkaline | 53Comment: This is an | 40 - 110 [...] + + + + | Globulin | 2.4 | 2.1 - 3.8 g/dL | [facility] | | | | | [facility] | [facility] | [facility] | | | | | | [facility] - | | | | | | LABORATORY | | + + + + + + | Albumin/Pooja | 1.5 | 0.8 - 2.0 | [facility] | | | bulin Ratio | | | [facility] | | | [facility] | | [facility] | | | | | | C[facility] - | | | | | | LABORATORY | | + + + + + + | BUN/Creatin | 17.0 | | [facility] | | | ine [...] + | [facility] | [address] | [place] | [phone] | | [facility] | | [address] | | | - LABORATORY | | | | + + + + + Lactate Dehydrogenase (03/25/2018 8:05 AM PDT) + +-------+ + + + | Component | Value | Ref Range | Performed | Pathologist | | | | | At | Signature | + +-------+ + + + | LDH TOTAL | 155 | 91 - 180 U/L | [facility] | | | | | | [facility] [...] [address] | [place] | [phone] | | [facility] | | [address] | | | - LABORATORY | | [...] | acetaminophen (TYLENOL) tablet | Given | 03/25/20 | 650 mg | | | | 650 mg 650 mg, Oral, ONCE, Sun | | 18 9:20 | | | | | 03/25/18 at 0930, For 1 dose, Give | | AM PDT | | | | | 30 minutes prior to riTUXimab., | | | | | | + +--------+ +--------+------+------+ +---+---+ | | | +---+---+ + +-------+ +-------+---+---+ | famotidine (PEPCID) injection | Given | 03/25/20 | 20 mg | | | | 20 mg 20 mg, Intravenous, ONCE, | | 18 9:20 | | | | | 03/25/18 at 0930, For 1 dose, | | AM PDT | | | | | Dilute 2 mL of famotidine with 8 | | | | | | | mL of normal saline to a final | | | | | | | concentration of 2 mg/mL. | | | | | | | Administer ordered dose over a | | | | | | | period of at least 2 minutes., | | | | | | + +-------+ +-------+---+---+ +---+---+ | | | +---+---+ + +-------+ +-------+---+---+ | heparin 100 units/mL flush | Given | 03/25/20 | 500 | | | | injection 500 Units 500 Units (5 | | 18 1:12 | Units | | | | mL), Intracatheter, PRN, Line | | PM PDT | | | | | Care, Starting 03/25/18 at 0906 | | | | | | + +-------+ +-------+---+---+ +---+---+ | | | +---+---+ + +---------+ + +---+---+ | riTUXimab (RITUXAN) 1,000 mg in | New Bag | 03/25/20 | 1,000 mg | | | | sodium chloride 0.9% 1,000 mL | | 18 9:49 | | | | | infusion 1,000 mg (rounded from | | AM PDT | | | | | 997.5 mg = 375 mg/m2 | | | | | | | 2.66 m2 Treatment plan recorded | | | | | | | BSA), Intravenous, ONCE, Mon | | | | | | | 03/25/18 at 1000, For 1 dose, | | | | [...]
--- OUTSIDE RECORDS SUMMARY | ~2019-09-27 | XMS | Encounter Summary ---
Demographics + + + | Address | [address] | | | [place] [address] | + + + | Home Phone | | + + + | Preferred Language | Unknown | + + + | Marital Status | | + + + | Scientology Affiliation | 1013 | + + + | Race | Unknown | + + + | Ethnic Group | Unknown | + + + Author + + + | Author | [facility] | | | and [place] | + + + | Organization | [facility] | | [...] [place] | | | | | [address] | | + + + + + Care Team Providers + +------+ + | Care Tool Marker Name | Role | Phone | + +------+ + | Earle Chacko MD | PCP | | + +------+ + Encounter Details +--------+ + + + + | Date | Type | Department | Care Team | Description | +--------+ + + + + | 04/18/ | Hospital | [facility] | Miguel Zuniga | 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 | | | | INFUSION [address] | [address] [place] | intra-abdominal | | | | [place], | [place] [address] | lymph nodes (HCC) | | | | [place] [address] | [phone] | | | | | [phone] | | | +--------+ + + + [...] | | | | | [place], [place] | | | | | | [address] | | | | | | | [...]
--- OUTSIDE RECORDS SUMMARY | ~2019-09-27 | XMS | Encounter Summary ---
Demographics + + + | Address | [address] | | | [place] [address] | + + + | Home Phone | | + + + | Preferred Language | Unknown | + + + | Marital Status | | + + + | Hinduism Affiliation | 1013 | + + + | Race | Unknown | + + + | Ethnic Group | Unknown | + + + Author + + + | Author | [facility] | | | and [place] | + + + | Organization | [facility] | | | and [...] [place] | | | | | [address] | | + + + + + Care Team Providers + +------+ + | Care Signal Tester Name | Role | Phone | + [...] | | | | | Diffuse | Mohamud, | ELOISE | | | | | large B-cell | Joaquim Benson, | HOSPITAL | | | | | lymphoma of | MD [address] | | | | | | [address] | [address] | | | | | intra-abdomi | [place], | [place], [place] | | | | | nal lymph | [place] [address] | [address] | | | | | nodes (HCC) | Phone: | Phone: | | | | | Procedures | [phone] | [phone] | | | | | CT Abdomen | Fax: | Fax: | | | | | Pelvis w | [phone] | [phone] | | | | | Contrast | | | +--------+--------+ + + + + Reason for Visit + + + | Reason | Comments | + + + | Follow-up | | + + + Encounter Details +--------+ + + + + | Date | Type | Department | Care Team | Description | +--------+ + + + + | 09/05/ | Hospital | [facility] | Mohamud, | Diffuse large B-cell | | 2016 | Encounter | [facility] | Joaquim Benson MD [address] | lymphoma of | | | | [facility] [address] [place] | intra-abdominal | | | | [address] | [place] [address] | lymph nodes (HCC) | | | | [place] [address] | [phone] | (Primary Dx) | | | | [phone] | | | +--------+ + + + [...] + + + | Blood Pressure | 122/58 | 09/05/2016 8:54 AM | | | | | PST | | + + + + + | Pulse | 58 | 09/05/2016 8:54 AM | | | | | PST | | + + + + + | Temperature | 36.3 C (97.3 F) | 09/05/2016 8:54 AM | | | | | PST | | + + + + + | Respiratory Rate | 18 | 09/05/2016 8:54 AM | | | | | PST | | + + + + + | Oxygen Saturation | 97% | 09/05/2016 8:54 AM | | | | | PST | | + + + + + | Inhaled Oxygen | - | - | | | Concentration | | | | + + + + + | Weight | 136 kg (299 lb 12.8 | 09/05/2016 8:54 AM | | | | oz) | PST | | + + + + + | Height | - | - | | + + + + + | Body Mass Index | 38.49 | 07/18/2016 4:16 PM | | | [...] + +---------+ + + | predniSONE | 5 pills for 5 days | | 4 | 08/26/20 | | | (DELTASONE) 20 mg | after chemo. | | | 16 | 7 | | tablet | | | | | | + + + +---------+ + + | Sennosides (MP | Take 2 capsules by | | 0 | | | | SENALAX PO) | mouth Daily. | | | | 7 | + + + +---------+ + + documented as of this encounter Progress Notes Joaquim Tejeda MD - 09/05/2016 8:45 AM PSTFormatting of this note might be differe nt from the original. Hematology/Oncology Progress Note [facility] Pt. Name/Age/: Joaquim Sanchez 66 y.o. 1950 Med. Record Number: [id number] Date of admission: 09/05/2016 Identifying Statement: Joaquim Sanchez is a 66 y.o. male from [address] [address] with Diffuse Large B-Cell Lymphoma. The patient [...] lower extremity. CT abdomen/Pelvis with contrast 2016 ([facility]). Ex tensive periaortic lymphadenopathy (1.8 cm and 2.1 cm respectively), extensive adenopathy ex tending out along the left common iliac artery and encasing the left external iliac artery ( 4.4 cm) with compromise of the left external iliac vein. 2. Open laparotomy with LEFT ileal retroperitoneal lymph node biopsy ([place], [facility]) June 242015. [id number] [facility] Diffuse Large B-Cell lymph raciel, germinal [...] of RCHOP plus Neulasta on September 04, 2016 Current Assessment & Plan Joaquim Atkinson" returned to clinic on 09/05/2016 with his Mara for foll ow-up of diffuse large B-cell lymphoma, at least stage III. Interval history is notable for the fact that there has been no change in Rios's left lowe r extremity lymphedema. He is being fitted for a left lower extremity compression garment t izabel. Review of systems is notable for persistent left lower extremity lymphedema. Clinic exam is notable for unchanged left lower extremity lymphedema. Laboratory exam is notable for leukopenia without neutropenia. Assessment; diffuse large B-cell lymphoma, at least stage III. Plan; proceed with cycle #3 of our CHOP chemotherapy today. Rios will receive growth fact or support with Neulasta at [facility] in [facility] tomorrow. He'll be mayra eduled for a CT scan of the chest/abdomen/pelvis at [facility] in [facility] to assess response. Return to [facility] in about 10 days for isaias check and to review the results of the CT scan. Review of Systems: Constitutional: Reports energy level is varied, had a good week last week and most of this week. Reports nausea early on after treatment. Denies high fevers, shaking chills, anorexia, vomiting, weight loss, or night sweats. Appetite without changes. Ear, Nose, Mouth, Throat: Denies odynophagia, dysphagia, or tinnitus. Cardiovascular: Denies shortness of breath, dyspnea on exertion, chest pain, palpitations o r orthopnea. Respiratory: Denies cough, hemoptysis, or sputum production. Gastrointestinal: Denies abdominal pain, constipation, diarrhea, melena, or bright red bloo d per rectum. Genitourinary: Denies hematuria or dysuria. Musculoskeletal: Reports left leg has been sore and swollen intermittently- increasing in l ast few weeks. Neurologic: Reports only a few headaches after last chemo. Denies visual changes or numbnes s/tingling of the extremities. Endocrine: Reports swelling in left leg is intermittent and associated with pain recently. Denies heat/cold intolerance. Hematologic: Denies spontaneous bruising or bleeding. Integumentary: Denies rash, wounds or other skin concerns. Pain: Denies pain currently. Note: Here for follow up, labs and 6 hour treatment. My chart: active Scheduled Medications: Current Outpatient Prescriptions Medication Sig Dispense Refill aspirin 81 mg EC tablet Take 162 mg by mouth Daily. carvedilol (COREG) 25 mg tablet Take 25 mg by mouth 2 times daily (with breakfast & din ner). 2 cetirizine (ZYRTEC) 10 mg tablet Take 10 mg by mouth Daily. clotrimazole-betamethasone (LOTRISONE) cream Apply topically Daily as needed. gabapentin (NEURONTIN) 100 mg capsule Take by mouth Daily. 100 mg po twice daily, 300 mg po once daily. 4 gabapentin (NEURONTIN) 300 mg capsule Take 300 mg by mouth Daily. 2 levothyroxine (SYNTHROID, LEVOTHROID) 50 mcg tablet 3 LORazepam (ATIVAN) 1 mg tablet Take 1 tablet by mouth every 6 hours as needed (Nausea/V omiting). 20 tablet 5 omeprazole (PRILOSEC) 20 mg capsule Take 20 mg by mouth 2 times daily. ondansetron (ZOFRAN) 8 MG tablet Take 1 tablet by mouth 2 times daily. For two days aft er each chemo and then may take one tab every 8 hours if needed for nausea 30 tablet 3 Sennosides (MP SENALAX PO) Take 2 capsules by mouth Daily. traMADol (ULTRAM) 50 mg tablet Take 50 mg by mouth every 6 hours as needed. No current facility-administered medications for this encounter. Facility-Administered Medications Ordered in Other Encounters Medication Dose Route Frequency Provider Last Rate Last Dose cyclophosphamide (CYTOXAN) 2,000 mg in sodium chloride 0.9% 250 mL chemo infusion 750 mg/m2 (Treatment Plan Actual) Intravenous Once Joaquim Tejeda MD 350 mL/hr at 6 1457 2,000 mg at 09/05/16 1457 heparin 100 units/mL flush injection 500 Units 5 mL Intercatheter PRN Joaquim robles MD Allergies: Allergy: Allergies Allergen Reactions Codeine [...] Objectives: Temp: 36.3 C (97.3 F) BP: 122/58 mmHg Pulse: 58 Resp: 18 SpO2: 97 % on Min/Max Temp past 24 hours:Temp Av.3 C (97.3 F) Min: 36.3 C (97.3 F) Max: 3 6.3 C (97.3 F) No intake or output data in the 24 hours ending 09/05/16 1542 Wt. Admission: Weight: 135.988 kg (299 lb 12.8 oz) Wt. Current: Weight: 135.988 kg (299 lb 12.8 oz) Wt Readings from Last 3 Encounters: 09/05/16 135.988 kg (299 lb 12.8 oz) 08/24/16 136.1 kg (300 lb 0.7 oz) 08/14/16 135.716 kg (299 lb 3.2 oz) Physical Exam: General: The patient is [...] Rebel REdita., Andie Menezes., Michael Trejo., Michael, T.Bren., Dara, E.T., Fatoumata, P .P.: Toxicity And Response Criteria Of The Eastern Cooperative Oncology Group. Am J Clin Onc ol 5:649-655, 1982. The ECOG Performance Status is in the public domain therefore available for public use. To duplicate the scale, please cite the reference above and credit the Eastern Cooperative Onco logy GroupJoaquim M.D., Group Chair Diagnostic studies: Available data and images were reviewed personally. See reports. Significant results and findings are addressed here or in the Assessment and Plan. Results for JOAQUIM SANCHEZ ( ) as of 09/05/2016 15:43 Ref. Range 09/05/2016 08:24 WBC Latest Ref Range: 4.0-11.0 K/uL 3.0 (L) RBC: Latest Ref Range: 4.30-5.70 M/uL 3.66 (L) Hgb Latest Ref Range: 13.5-18.0 g/dL 10.8 (L) Hct, Final Latest Ref Range: 40.0-51.0 % 31.9 (L) MCV Latest Ref Range: 83.0-101.0 fL 87.1 MCH Latest Ref Range: 28.0-35.0 pg 29.5 MCHC Latest Ref Range: 32.0-36.0 g/dL 33.9 RDW-CV Latest Ref Range: <15.0 % 20.3 (H) Platelet Count Latest Ref Range: 140-440 K/uL 140 MPV Latest Units: fL 8.6 Absolute Neutrophils Latest Ref Range: 1.80-8.50 K/uL 2.00 Absolute Lymphocytes Latest Ref Range: 0.60-3.20 K/uL 0.70 Absolute Monocytes Latest Ref Range: 0.00-1.00 K/uL 0.30 Absolute Eosinophils Latest Ref Range: 0.00-0.40 K/uL 0.00 Absolute Basophils Latest Ref Range: 0.00-0.10 K/uL 0.00 % Neutrophils Latest Ref Range: 45.0-82.0 % 66.2 % Lymphocytes Latest Ref Range: 20.0-45.0 % 22.1 % Monocytes Latest Ref Range: 4.0-12.0 % 9.7 % Eosinophils Latest Ref Range: 0.0-5.0 % 1.0 % Basophils Latest Ref Range: 0.0-1.0 % 1.0 NA Latest Ref Range: 136-149 mmol/L 140 K Latest Ref Range: 3.5-5.1 mmol/L 3.8 Chloride Latest Ref Range: 98-109 mmol/L 105 Carbon dioxide Latest Ref Range: 24-31 mmol/L 26 ANION GAP Latest Ref Range: 3-16 mmol/L 9 GLUCOSE Latest Ref Range: 70-109 mg/dL 110 (H) BUN Latest Ref Range: 7-18 mg/dL 20 (H) BUN/CREA Unknown 22.2 Creatinine Latest Ref Range: 0.60-1.30 mg/dL 0.90 ALBUMIN Latest Ref Range: 3.2-5.0 g/dL 3.5 Albumin/Globulin ratio Latest Ref Range: 0.8-2.0 1.6 Total protein Latest Ref Range: 6.0-7.8 g/dL 5.7 (L) EGFR IF NOT Latest Ref Range: >=60 mL/min/1.73m2 >60 Calcium Latest Ref Range: 8.3-10.5 mg/dL 9.5 ALK PHOS Latest Ref Range: 40-110 U/L 43 ALT (SGPT) (REF) Latest Ref Range: 6-45 U/L 20 AST (SGOT) (REF) Latest Ref Range: 10-42 U/L 20 LDH TOTAL Latest Ref Range: 91-180 U/L 152 BILIRUBIN TOTAL Latest Ref Range: 0.1-1.5 mg/dL 0.4 GLOBULIN Latest Ref Range: 2.1-3.8 g/dL 2.2 FERRITIN Latest Ref Range: 24-366 ng/mL 272 IRON Latest Ref Range: 50-160 ug/dL 68 TIBC Latest Ref Range: 235-425 ug/dL 300 % SATURATION Latest Ref Range: 20.0-55.0 % 22.7 Transferrin Latest Ref Range: 240.0-480.0 mg/dL 214.4 (L) Pharmacovigilance: Palliative Care: Patient's Medications New Prescriptions No medications on file Modified Medications No medications on file Discontinued Medications No medications on file Procedure: Day 1, Cycle 3 (21-day cycle) Released on 09/05/2016 9:38; Originally planned for 2015 Labs Iron and Transferrin STAT, ONE TIME, Sun09/05/16 at 08, For 1 occurrence OrderHistory Ferritin STAT, ONE TIME, Sun09/05/16 at 823, For 1 occurrence OrderHistory Lactate Dehydrogenase STAT, ONE TIME, Sun09/05/16 at 823, For 1 occurrence OrderHistory Comprehensive Metabolic Panel STAT, ONE TIME, Sun09/05/16 at 823, For 1 occurrence OrderHistory CBC with Differential STAT, ONE TIME, Sun09/05/16 at 823, For 1 occurrence OrderHistory Nursing Orders OK to proceed with chemotherapy 09/05/16 - INFORMED CONSENT: The nature and character of the proposed treatment with Cycle#3 RCHOP and the anticipated results of the proposed treatment with Cycle #3 RCHOP;recognized alternativ e forms of treatment, including non-treatment; the risks benefits, and side effects of propo sed treatment, alternative treatments and non-treatment were discussed with the patient who consents to proceed with treatment with Cycle #3 RCHOP. The treating provider has examined t he patient and reviewed the diagnostic data, including laboratory data, and deems that it is safe and appropriate to proceed with treatment with Cycle #3 RCHOP.Brigido KENNEDY. OrderHistory Plans for discharge MAKE SURE HE STARTS ON THE PREDNISONE Schedule CT of Abdomen/Pelvis at [facility] in about a week. . arrange marco in [place] with Dora for day 2- fax her orders. QFU CBC,CMP,LDH ARM DRAW IN 10 DAYS FOR ISAIAS CHECK QFU in 21 days CBC,CMP,LDH * PORT DRAW AND 6 HOUR RX OrderHistory Pre-Medications acetaminophen (TYLENOL) tablet 650 mg 650 mg, Oral, ONCE, Sun09/05/16 at 1000, For 1 dose Give 30 minutes prior to riTUXimab. OrderHistory diphenhydrAMINE (BENADRYL) injection 25 mg 25 mg, Intravenous, ONCE, Sun09/05/16 at 1000, For 1 dose OrderHistory ondansetron (ZOFRAN) 8 mg, dexamethasone (DECADRON) 4 mg in sodium chloride 0.9% 50 m L IVPB Intravenous, for 16 Minutes, ONCE, Sun09/05/16 at 1000, For 1 dose OrderHistory fosaprepitant (EMEND) 150 mg in sodium chloride 0.9% 150 mL IVPB 150 mg, Intravenous, for 20 Minutes, ONCE, Sun09/05/16 at 1015, For 1 dose Do not shake bag. Administer prior to chemotherapy. OrderHistory CHEMOTHERAPY riTUXimab (RITUXAN) 1,000 mg in sodium chloride 0.9% 1,000 mL infusion 1,000 mg (rounded from 997.5 mg = 375 mg/m2 2.66 m2 Treatment plan actual BSA), Intr avenous, ONCE, Sun09/05/16 at 1030, For 1 dose Initial infusion: [...] 1.4 mg/m2), Intravenous, for 10 Minutes, ONCE, Sun09/05/16 at 1400 , For 1 dose Chemotherapy: Use appropriate handling precautions. Vesicant. For IV use only. Fatal if giv en by other routes. OrderHistory DOXOrubicin (ADRIAMYCIN) 133 mg in sodium chloride 0.9% 250 mL chemo infusion 133 mg (50 mg/m2 2.66 m2 Treatment plan actual BSA), Intravenous, for 30 Minutes, ON CE, Sun09/05/16 at 1430, For 1 dose Chemotherapy: Use appropriate handling precautions. Vesicant. Protect from light. OrderHistory cyclophosphamide (CYTOXAN) 2,000 mg in sodium chloride 0.9% 250 mL chemo infusion 2,000 mg (rounded from 1,995 mg = 750 mg/m2 2.66 m2 Treatment plan actual BSA), Intr avenous, for 60 Minutes, ONCE, Sun09/05/16 at 1500, For 1 dose Chemotherapy: Use appropriate handling precautions. OrderHistory Post-Medications heparin 100 units/mL flush injection 500 Units 500 Units (5 mL), Intercatheter, PRN, Line Care, Starting Sun09/05/16 at 0938 Order History PRN Medications LORazepam (ATIVAN) injection [...] ock, loss of consciousness). Stop infusion, activate code blue and notify . OrderHisto ry JOAQUIM TEJEDA MD Portions of this chart may have been created with Caregivers voice recognition software. Occasi onal wrong-word or [...] [place]LEX | | | | | | [place] | | | | | | [id number] | | | | | | | | +--------+---------+ + + + + +---------+--------+ + + | Name | Type | Priori | Associated Diagnoses | Order Schedule | | | | ty | | | + +---------+--------+ + + | CT Abdomen Pelvis w | Imaging | Routin | Diffuse large | Expected: | | Contrast | | e | B-cell lymphoma of | 09/12/2016, Expires: | | | | | intra-abdominal | 09/06/2017 | | | | | lymph nodes (HCC) | | + +---------+--------+ + + documented as of this encounter Visit Diagnoses + + | Diagnosis | + + | 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
--- OUTSIDE RECORDS SUMMARY | ~2019-09-27 | XMS | Encounter Summary ---
Demographics + + + | Address | [address] | | | [place] [address] | + + + | Home Phone | | + + + | Preferred Language | Unknown | + + + | Marital Status | Unknown | + + + | Voodoo Affiliation | Unknown | + + + | Race | Unknown | + + + | Ethnic Group | Unknown | + + + Author + + + | Author | [facility] | + + + | Organization | [facility] | + + + | Address | Unknown | + + + | Phone | Unavailable | + + + Care Team Providers + +------+ + | Care Chief Revenue Officer Name | Role | Phone | + +------+ + PCP | Unavailable | + +------+ + Encounter Details +--------+ + + + + | Date | Type | Department | Care Team | Description | +--------+ + + + + | 07/21/ | Abstract | [facility] | Clinic, Surgery | | | 2014 | | [place] [facility] [address] | | | | | | [address] | | | | | | Mailcode: [place] | | | | | | [facility] and | | | | | | [facility], [facility] [address] | | | | | | [place], [place] | | | | | | [address] | | | | | | [phone] | | | +--------+ + + + [...] as of this encounter Plan of Treatment Not on filedocumented as of this encounter Visit Diagnoses Not on filedocumented in this encounter"
--- OUTSIDE RECORDS SUMMARY | ~2019-09-27 | XMS | Encounter Summary ---
Demographics + + + | Address | [address] | | | [place] [address] | + + + | Home Phone | | + + + | Preferred Language | Unknown | + + + | Marital Status | | + + + | Voodoo Affiliation | 1013 | + + + [...] [place] | | | | | [address] | | + + + + + Care Team Providers + +------+ + | Care Engineering And Scientific Programmer Name | Role | Phone | + [...] large b-cell | Gerber Benson, | [address] | | | | | lymphoma, | MD [address] | [place], | | | | | intra-abdomi | [address] | [place] [address] | | | | | nal lymph | [place], | Phone: | | | | | nodes (HCC) | [place] [address] | [phone] | | | | | Procedures | Phone: | Fax: | | | | | MT | [phone] | [phone] | | | | | RITUXIMAB | Fax: | | | | | | INJECTION, | [phone] | | | | | | 100 [...] | | | | | | MT IV | | | | | | | INFUSION, | | | | | | | HYDRATION, | | | | | | | EA ADD HOUR | | | | | | | MT | | | | | | [...] | | | | | | MT | | | | | | | FOSAPREPITAN | | | | | | | T INJECTION, | | | | | | | 1 MG MT | | | | | | | PREDNISONE | | | | | | | IR OR DR | | | | | | | ORAL 1MG MT | | | | | | | | | | | | | | CYCLOPHOSPHA | | | | | | | MIDE 100 MG | | | | | | | INJ MT | | | | | | | DOXORUBICIN | | | | | | | HCL | | | | | | | INJECTION, | | | | | | | 10 MG MT | | | | | | | VINCRISTINE | | | | | | | SULFATE 1 MG | | | | | | | INJ MT | | | | | | [...] | | | | | | MT | | | | | | | INJECTION, | | | | | | | PEGFILGRASTI | | | | | | | M 6MG MT | | | | | | [...] + + + + | 08/14/ | [facility] | [facility] | Mohamud, | Diffuse large B-cell | | 2016 | Encounter | [facility] | Gerber Benson MD [address] | lymphoma of | | | | INFUSION [address] | [address] [place] | intra-abdominal | | | | [address] [place], | [place] [address] | lymph nodes (HCC) | | | | [place] [address] | [phone] | | | | | [phone] | | | +--------+ + + + [...] documented as of this encounter Progress Notes Tonya Oneil RN - 08/14/2016 4:05 PM PSTDc/d home amb in good condition with . Has return appts doc umented in this encounter Plan of Treatment +--------+---------+ + + + | Date | Type | Specialty | Care Team | Description | +--------+---------+ + + + | 10/01/ | Office | Cardiology | Karen Bansal, | | | 2019 | Visit | | MD Patricia JOHNSON | | | | | | [place] | | | | | | [address] | | | | | | | | +--------+---------+ + + + documented as of this encounter Procedures + +--------+ + + + | Procedure Name | Priori | Date/Time | Associated Diagnosis | Comments | | | ty | | | | + +--------+ + + + | BETA 2 MICROGLOBULIN | STAT | 08/14/2016 | Diffuse large | Results for this | | | | 8:16 AM | B-cell lymphoma of | procedure are in the | | | | PST | intra-abdominal | results section. | | | | | lymph nodes (HCC) | | + +--------+ + + + | CBC WITH | STAT | 08/14/2016 | Diffuse large | Results for this | | DIFFERENTIAL | | 8:16 AM | B-cell lymphoma of | procedure are in the | | | | PST | intra-abdominal | results section. | | | | | lymph nodes (HCC) | | + +--------+ + + + | URIC ACID | STAT | 08/14/2016 | Diffuse large | Results for this | | | | 8:16 AM | B-cell lymphoma of | procedure are in the | | | | PST | intra-abdominal | results section. | | | | | lymph nodes (HCC) | | + +--------+ + + + | LACTATE | STAT | 08/14/2016 | Diffuse large | Results for this | | DEHYDROGENASE | | 8:16 AM | B-cell lymphoma of | procedure are in the | | | | PST | intra-abdominal | results section. | | | | | lymph nodes (HCC) | | + +--------+ + + + | COMPREHENSIVE | STAT | 08/14/2016 | Diffuse large | Results for this | | METABOLIC PANEL | | 8:16 AM | B-cell lymphoma of | procedure are in the | | | | PST | intra-abdominal | results section. | | | | | lymph nodes (HCC) | | + +--------+ + + + documented in this encounter Results Beta 2 Microglobulin (08/14/2016 8:16 AM PST) + + + + + + | Component | Value | Ref Range | Performed | Pathologist | | | | | At | Signature | + + + + + + | BETA 2 | 1667.0Comment: Testing | 1010 - 1730 | REFERENCE | | | MICROGLOBUL | Performed: [facility], [address] | ug/L | [facility] | | | [place] | [address], [place] | | | | | | [address] | | | | + + + + + + + + | Specimen | + + | Blood specimen | | (specimen) | + + + + + + + | Performing | Address | City/State/Zipcode | Phone Number | | Organization | | | | + + + + + | [facility] | [address] | [place] [address] | [phone] | + + + + + CBC with Differential (08/14/2016 8:16 AM PST) + + + + + + | Component | Value | Ref Range | Performed | Pathologist | | | | | At | Signature | + + + + + + | WBC | 2.3 (LL)Comment: Cancer | 4.0 - 11.0 K/uL | [facility] | [facility] | | [facility] | | | | | | [facility] | | | | | | [facility] - | | | | | | LABORATORY | | + + + + + + | RBC | 3.61 (L) | 4.30 - 5.70 | [facility] | | | | | M/uL | [facility] | | | | | | [facility] | | | | | | C[facility] - | | | | | | LABORATORY | | + + + + + + | Hemoglobin | 10.8 (L) | 13.5 - 18.0 | [facility] | | | | | g/dL | [facility] | | | | | | [facility] | | | | | | C[facility] - | | | | | | LABORATORY | | + + + + + + | Hematocrit | 31.1 (L) | 40.0 - 51.0 % | [facility] | | | | | | [facility] | | [facility] | [facility] | | | | | | [facility] - | | | | | | LABORATORY | | + + + + + + | MCV | 86.1 | 83.0 - 101.0 fL | [facility] [...] + + + + | MCHC | 34.9 | 32.0 - 36.0 | [facility] | | | | | g/dL | [facility] | | [facility] | [facility] | | | | | | [facility] - | | | | | | LABORATORY | | + + + + + + | RDW-CV | 17.8 (H) | <15.0 % | [facility] | | | | | | [facility] | | [facility] | [facility] | | | | | | [facility] - | | | | | | LABORATORY | | + + + + + + | Platelet | 128 (L) | 140 - 440 K/uL | [facility] | | | Count | | | [facility] | | | | | | [facility] | | | | | | [facility] - | | | | | | LABORATORY | | + + + + + + | MPV | 8.7 | fL | [facility] | | | [...] + + + + | % | 29.0 | 20.0 - 45.0 % | [facility] | | | Lymphocytes | | | [facility] | | | | | | [facility] | | | | | | C[facility] - | | | | | | LABORATORY | | + + + + + + | % Monocytes | 9.2 | 4.0 - 12.0 % | [facility] | | | | | | [facility] | | | | | | [facility] | | | | | | [facility] - | | | | | | LABORATORY | | + + + + + + | % | 0.7 | 0.0 - 5.0 % | [facility] | | | Eosinophils | | | [facility] | | | | | | [facility] | | | | | | CENTER - | | | | | | LABORATORY | | + + + + + + | % Basophils | 0.3 | 0.0 - 1.0 % | [facility] | | | | | | [facility] | | | [facility] | [facility] | | | | | | [facility] - | | | | | | LABORATORY | | + + + + + + | Absolute | 1.40 (L) | 1.80 - 8.50 | [facility] [...] + | [facility] | [address] | [place] | [phone] | | [facility] | | [address] | | | - LABORATORY | | | | + + + + + Comprehensive Metabolic Panel (08/14/2016 8:16 AM PST) + + + + + + | Component | Value | Ref Range | Performed | Pathologist | | | | | At | Signature | + + + + + + | Na | 140 | 136 - 149 | [facility] | | | | | mmol/L | [facility] | | | | | | [facility] | | | | | | CENTER - | | | | | | LABORATORY | | + + + + + + | K | 3.6 | 3.5 - 5.1 | [facility] | | | | | mmol/L | [facility] | | | | [...] + + + + | Glucose | 126 (H) | 70 - 109 mg/dL | [...] + + + + | Creatinine | 0.90 | 0.60 - 1.30 | [facility] | [...] | mL/min/1.73m2 | [facility] | | | [facility]BIAN | RATE,ESTIMATED | | MEDICAL | | | | mL/min/1.57a7Mohs than | | CENTER - | | [...] + + + + | Albumin | 3.5 | 3.2 - 5.0 g/dL | [facility] | | | | | | [facility] | | | | | | [facility] | | | | | | CENTER - | | | | | | LABORATORY | | + + + + + + | Bilirubin | 0.3Comment: This is an | 0.1 - 1.5 [...] + + + + | Total | 5.7 (L) | 6.0 - 7.8 g/dL | [facility] | | | Protein | | | [facility] | | | | | | [facility] | | | | | | CENTER - | | | | | | LABORATORY | | + + + + + + | AST | 22Comment: This is an | 10 - 42 [...] + + + + | ALT | 21Comment: This is an | 6 - 45 [...] + + + + | Alkaline | 45Comment: This is an | 40 - 110 [...] + + + + | BUN/Creatin | 17.8 | | [facility] | | | ine [...] + + | [facility] | [address] | [place] | [phone] | | [facility] | | [address] | | | - LABORATORY | | | | + + + + + Uric Acid (08/14/2016 8:16 AM PST) + +-------+ + + + | Component | Value | Ref Range | Performed | Pathologist | | | | | At | Signature | + +-------+ + + + | Uric Acid | 4.5 | 2.6 - 7.2 mg/dL | [facility] | | | | | | [facility] | [address] | [place] | [phone] | | [facility] | | [address] | | | - LABORATORY | | | | + + + + + Lactate Dehydrogenase (08/14/2016 8:16 AM PST) + +-------+ + + + | Component | Value | Ref Range | Performed | Pathologist | | | | | At | Signature | + +-------+ + + + | LDH TOTAL | 154 | 91 - 180 U/L | [facility] | | | | | | [facility] [address] | [place] | [phone] | | [facility] | | [address] | | | - LABORATORY | | [...] | acetaminophen (TYLENOL) tablet | Given | 08/14/20 | 650 mg | | | | 650 mg 650 mg, Oral, ONCE, Mon | | 16 9:45 | | | | | 08/14/16 at 1000, For 1 dose, | | AM PST | | | | | Give 30 minutes prior to | | | | | | | riTUXimab., | | | | | | + +--------+ +--------+------+------+ +---+---+ | | | +---+---+ + +---------+ + +-------+---+ | cyclophosphamide (CYTOXAN) | New Bag | 08/14/20 | 2,000 mg | 350 | | | 2,000 mg in sodium chloride 0.9% | | 16 2:55 | | mL/hr | | | 250 mL chemo infusion 2,000 mg | | PM PST | | | | | (rounded from 1,995 mg = 750 | | | | | | | mg/m2 | | | | | | | 2.66 m2 Treatment plan recorded | | | | | | | BSA), Intravenous, Administer | | | | | | | over 60 Minutes, ONCE, Mon | | | | | | | 08/14/16 at 1500, For 1 dose, | | | | | | | Chemotherapy: Use appropriate | | | | | | | handling precautions., | | | | | | + +---------+ + +-------+---+ +---+---+ | | | +---+---+ + +-------+ +-------+---+---+ | diphenhydrAMINE (BENADRYL) | Given | 08/14/20 | 25 mg | | | | injection 25 mg 25 mg, | | 16 9:45 | | | | | Intravenous, ONCE, 08/14/16 | | AM PST | | | | | at 1000, For 1 dose | | | | | | + +-------+ +-------+---+---+ +---+---+ | | | +---+---+ + +---------+ +--------+-------+---+ | DOXOrubicin (ADRIAMYCIN) 133 mg | New Bag | 08/14/20 | 133 mg | 633 | | | in sodium chloride 0.9% 250 mL | | 16 2:16 | | mL/hr | | | chemo infusion 133 mg (50 mg/m2 | | PM PST | | | | | | | | | | | | 2.66 m2 Treatment plan recorded | | | | | | | BSA), Intravenous, Administer | | | | | | | over 30 Minutes, ONCE, Mon | | | | | | | 08/14/16 at 1430, For 1 dose, | | | | | | | Chemotherapy: Use appropriate | | | | | | | handling precautions. Vesicant. | | | | | | | Protect from light., | | | | | | + +---------+ +--------+-------+---+ +---+---+ | | | +---+---+ + +---------+ +--------+-------+---+ | fosaprepitant (EMEND) 150 mg in | New Bag | 08/14/20 | 150 mg | 450 | | | sodium chloride 0.9% 150 mL IVPB | | 16 10:12 | | mL/hr | | | 150 mg, Intravenous, Administer | | AM PST | | | | | over 20 Minutes, ONCE, Mon | | | | | | | 08/14/16 at 1015, For 1 dose, Do | | | | | | | not shake bag. Administer prior | | | | | | | to chemotherapy., | | | | | | + +---------+ +--------+-------+---+ +---+---+ | | | +---+---+ + +-------+ +-------+---+---+ | heparin 100 units/mL flush | Given | 08/14/20 | 500 | | | | injection 500 Units 500 Units (5 | | 16 3:59 | Units | | | | mL), Intracatheter, PRN, Line | | PM PST | | | | | Care, Starting 08/14/16 at | | | | | | | 0936 | | | | | | + +-------+ +-------+---+---+ +---+---+ | | | +---+---+ + +---------+ +---+-------+---+ | ondansetron (ZOFRAN) 8 mg, | New Bag | 08/14/20 | | 204 | | | dexamethasone (DECADRON) 4 mg in | | 16 9:48 | | mL/hr | | | sodium chloride 0.9% 50 mL IVPB | | AM PST | | | | | Intravenous, Administer over 16 | | | | | | | Minutes, ONCE, Sun08/14/16 at | | | | | | | 1000, For 1 dose | | | | | | + +---------+ +---+-------+---+ +---+---+ | | | +---+---+ + + + + +---+---+ | riTUXimab (RITUXAN) 1,000 mg in | Restarte | 08/14/20 | 1,000 mg | | | | sodium chloride 0.9% 1,000 mL | d | 16 1:59 | | | | | infusion 1,000 mg (rounded from | | PM PST | | | | | 997.5 mg = 375 mg/m2 | | | | | | | 2.66 m2 Treatment plan recorded | | | | | | | BSA), Intravenous, ONCE, Mon | | | | | | | 08/14/16 at 1030, For 1 dose, | | | | [...] | | | + + + + +---+---+ +---------+ + +---+---+ | New Bag | 08/14/20 | 1,000 mg | | | | | 16 10:36 | | | | | | AM PST | | | | +---------+ + +---+---+ +---+---+ | | | +---+---+ + +-------+ +------+-------+---+ | vinCRIStine (ONCOVIN) 2 mg in | Given | 08/14/20 | 2 mg | 150 | | | sodium chloride 0.9% 25 mL chemo | | 16 2:00 | | mL/hr | | | infusion 2 mg, Intravenous, | | PM PST | | | | | Administer over 10 Minutes, ONCE, | | | | | | | 08/14/16 at 1400, For 1 | | | | | | | dose, Chemotherapy: Use | | | | | | | appropriate handling precautions. | | | | | | | Vesicant. For IV use only. Fatal | | | | | | | if given by other routes., | | | | | | + +-------+ +------+-------+---+ +---+---+ | | | +---+---+ documented in this encounter"
--- OUTSIDE RECORDS SUMMARY | ~2019-09-27 | XMS | Encounter Summary ---
Demographics + + + | Address | [address] | | | [place] [address] | + + + | Home Phone | | + + + | Preferred Language | Unknown | + + + | Marital Status | | + + + | Cheondoism Affiliation | 1013 | + + + | Race | Unknown | + + + | Ethnic Group | Unknown | + + + Author + + + | Author | [facility] | | | and [place] | + + + | Organization | [facility] | | | and [...] [place] | | | | | [address] | | + + + + + Care Team Providers + +------+ + | Care Lawyer Probate Name | Role | Phone | + +------+ + | Earle Chacko MD | PCP | | + +------+ + Encounter Details +--------+ + + + + | Date | Type | Department | Care Team | Description | +--------+ + + + + | 09/10/ | Documentati | [facility] | Mohamud, | | | 2018 | on | [facility] | Gerber Benson MD [address] | | | | [facility] [address] [place] | | | | | [address] [place] | [place] [address] | | | | | [place] [address] | [phone] | | | | | [phone] | | | +--------+ + + + [...] [place] | | | | | | [address] | | | | | | | | +--------+---------+ + + + documented as of this encounter Visit Diagnoses + + | Diagnosis | + + | Diffuse large B-cell lymphoma of intra-abdominal lymph nodes (HCC) Other malignant | | lymphomas of intra-abdominal lymph nodes | + + documented in this encounter"
--- OUTSIDE RECORDS SUMMARY | ~2019-09-27 | XMS | Encounter Summary ---
Demographics + + + | Address | [address] | | | [place] [address] | + + + | Home Phone | | + + + | Preferred Language | Unknown | + + + | Marital Status | | + + + | Sikhism Affiliation | 1013 | + + + | Race | Unknown | + + + | Ethnic Group | Unknown | + + + Author + + + | Author | [facility] | | | and [place] | + + + | Organization | [facility] | | | [...] [place] | | | | | [address] | | + + + + + Care Team Providers + +------+ + | Care Roll Examiner Name | Role | Phone | + [...] | | Radiology | Diagnoses | | [facility] | | | | | Primary | Nikhil, | [address] | | | | | cutaneous | Joaquim Benson, | [place], | | | | | diffuse | MD [address] | [place] | | | | | large cell | [address] | [address] | | | | | B-cell | [place], | Phone: | | | | | lymphoma | [place] [address] | [phone] | | | | | (HCC) | Phone: | Fax: | | | | | Procedures | [phone] | [phone] | | | | | ECHO | Fax: | | | | | | Complete | [phone] | | +--------+--------+ + + + + Reason for Visit Auth/Cert +--------+--------+ + + + + | Status | Reason | Specialty | Diagnoses / | Referred By | Referred To | | | | | Procedures | Contact | Contact | +--------+--------+ + + + + | | | | | | | +--------+--------+ + + + + Encounter Details +--------+ + + + + | Date | Type | Department | Care Team | Description | +--------+ + + + + | 07/21/ | Hospital | [facility] | Nikhil, | Primary cutaneous | | 2016 | Encounter | [facility] [address] | Joaquim Benson MD [address] | diffuse large cell | | | | [place] | [address] [place] | B-cell lymphoma | | | | [place] [address] | [place] [address] | ([facility]) | | | | [phone] | [phone] | | | | | | | | +--------+ + + + [...] + + | XARELTO 10 MG | | | 0 | 07/06/20 | | | tablet | | | | 16 | 6 | + + + +---------+ + + [...] [place] | | | | | | [id number] | | | | | | | | +--------+---------+ + + + documented as of this encounter Procedures + +--------+ + + + | Procedure Name | Priori | Date/Time | Associated Diagnosis | Comments | | | ty | | | | + +--------+ + + + | ECHO COMPLETE | Routin | 07/21/2016 | Primary cutaneous | Results for this | | | e | 3:50 PM | diffuse large cell | procedure are in the | | | | PDT | B-cell lymphoma | results section. | | | | | (HCC) | | + +--------+ + + + documented in this encounter Results ECHO Complete (07/21/2016 3:50 PM PDT) + +-------+ + + + | Component | Value | Ref Range | Performed | Pathologist | | | | | At | Signature | + +-------+ + + + | LVEF-TTE | 70 | | | | | TRANSTHORAC | | | | | | IC ECHO | | | | | + +-------+ + + + + + | Specimen | + + | | + + + +------ --------+ | Narrative | Perfo rmed At | + +------ --------+ | Transthoracic | | | Echocardiography Report (TTE) Demographics Patient Name DANIEL | | | Room Number JOAQUIM Patient Number | | | [id number] Date of Study 07/21/2016 Visit Number | | | [id number] Referring Physician | | | NIKHIL Benson Number Date of 1950 | | | Picture Enlarger SUNSHINE ROSA RDCS Age | | | 66 year(s) Interpreting YAMEL DYKES MD | | | French Lecturer Gender | | | Male Nurse Procedure Type of Study TTE | | | procedure: ECHO Complete. Procedure dateDate: 07/21/2016Start: 02:49 | | | PM Technical Quality: Adequate visualizationStudy Location: Echo Lab | | | Patient Status: RoutineHeight: 73 inchesWeight: 292.01 poundsBSA: 2.53 | | | m^2BMI: 38.53 kg/m^2Rhythm: Normal Sinus Rhythm ConclusionsSummary1. | | | Normal left ventricular size with a mild concentric left | | | ventricularhypertrophy. Left ventricular systolic function is | | | preserved. LVEF is 70%.2. Grade 1 left ventricular diastolic | | | dysfunction.3. Normal valvular structure.4. Mild to moderate aortic | | | root dilatation measuring 4.5 cm in diameter.5. Normal right-sided | | | pressure.6. Normal IVC with normal respiratory collapse. | | | Signature | | | | | | AM | | | -------- FindingsMitral ValveStructurally normal mitral valve without | | | significant stenosis orregurgitation.Aortic ValveAortic valve is | | | trileaflet without significant stenosis or regurgitation.Tricuspid | | | ValveStructurally normal tricuspid valve without significant stenosis | | | orregurgitation.Pulmonic ValveStructurally normal pulmonic valve | | | without significant stenosis orregurgitation.Left AtriumNormal left | | | atrium.Left VentricleLeft ventricle is normal in size and function. | | | Ejection fraction isestimated at 70 %.Impaired relaxation compatible | | | with diastolic dysfunction (reversed E/Aratio).Mild concentric left | | | ventricular hypertrophy.Right AtriumNormal right atrium.Right | | | VentricleNormal right ventricular structure and function.Pericardial | | | EffusionNo evidence of pericardial effusion. MiscellaneousMild to | | | moderate aortic root dilatation measuring 4.5 cm in diameter.The IVC | | | appears normal. Valves Mitral Valve Aortic Valve Structures Left | | | Atrium LA A/P Dimension: 4.6 cm | | | LA Volume: 42 ml LA Vol/BSA Index: 17 mL/m^2 | | | EF [id number]% Left Ventricle Diastolic Dimension: | | | 4.8 cm Systolic Dimension: 2.4 cm Septum Diastolic: 1.4 | | | cm PW Diastolic: 1.4 cm EF Calculated: 69% Miscellaneous Aorta | | | Aortic Root: 4.5 cm | | |6. Normal IVC with normal respiratory collapse. | | | | | |Signature | | | | | | Electronically signed by YAMEL DYKES MD(Interpreting physician) on | | | 07/24/2016 06:20 AM | | | | | | | | |Findings | | |Mitral Valve | | |Structurally normal mitral valve without significant stenosis or | | |regurgitation. | | |Aortic Valve | | |Aortic valve is trileaflet without significant stenosis or regurgitation. | | |Tricuspid Valve | | |Structurally normal tricuspid valve without significant stenosis or | | |regurgitation. | | |Pulmonic Valve | | |Structurally normal pulmonic valve without significant stenosis or | | |regurgitation. | | |Left Atrium | | |Normal left atrium. | | |Left Ventricle | | |Left ventricle is normal in size and function. Ejection fraction is | | |estimated at 70 %. | | |Impaired relaxation compatible with diastolic dysfunction (reversed E/A | | |ratio). | | |Mild concentric left ventricular hypertrophy. | | |Right Atrium | | |Normal right atrium. | | |Right Ventricle | | |Normal right ventricular structure and function. | | |Pericardial Effusion | | |No evidence of pericardial effusion. | | | | | |Miscellaneous | | |Mild to moderate aortic root dilatation measuring 4.5 cm in diameter. | | |The IVC appears normal. | | | | | |Valves | | | | | | Mitral Valve | | | | | | Aortic Valve | | | | | |Structures | | | | | | Left Atrium | | | | | | LA A/P Dimension: 4.6 cm LA Volume: 42 ml | | | LA Vol/BSA Index: 17 mL/m^2 EF Ptfguxnnh93% | | | | | | Left Ventricle | | | | | | Diastolic Dimension: 4.8 cm Systolic Dimension: 2.4 cm | | | Septum Diastolic: 1.4 cm | | | PW Diastolic: 1.4 cm | | | EF Calculated: 69% | | | | | | Miscellaneous | | | | | | Aorta | | | | | | Aortic Root: 4.5 cm | | | | | + +------ --------+ + + | Procedure Note | + + | Dario, Rad Results In - 07/24/2016 6:20 AM PDT Transthoracic Echocardiography Report | | (TTE) Demographics Patient Name DANIEL Room Number JOAQUIM | | Patient Number [id number] Date of Study 07/21/2016 Visit Number | | [id number] Referring Physician NIKHIL Benson | | Number Date of 1950 Picture Enlarger SUNSHINE ROSA RAMONA Age | | 66 year(s) Interpreting YAMEL DYKES MD | | French Lecturer Gender Male NurseProcedureType of Study TTE | | procedure: ECHO Complete.Procedure dateDate: 07/21/2016Start: 02:49 PMTechnical Quality: | | Adequate visualizationStudy Location: Echo LabPatient Status: RoutineHeight: 73 | | inchesWeight: 292.01 poundsBSA: 2.53 m^2BMI: 38.53 kg/m^2Rhythm: Normal Sinus | | RhythmConclusionsSummary1. Normal left ventricular size with a mild concentric left | | ventricularhypertrophy. Left ventricular systolic function is preserved. LVEF is 70%.2. | | Grade 1 left ventricular diastolic dysfunction.3. Normal valvular structure.4. Mild to | | moderate aortic root dilatation measuring 4.5 cm in diameter.5. Normal right-sided | | pressure.6. Normal IVC with normal respiratory | | collapse.Signature | | ------ Electronically signed by YAMEL DYKES MD(Interpreting physician) on | | 07/24/2016 06:20 | | AM FindingsMi | | tral ValveStructurally normal mitral valve without significant stenosis | | orregurgitation.Aortic ValveAortic valve is trileaflet without significant stenosis or | | regurgitation.Tricuspid ValveStructurally normal tricuspid valve without significant | | stenosis orregurgitation.Pulmonic ValveStructurally normal pulmonic valve without | | significant stenosis orregurgitation.Left AtriumNormal left atrium.Left VentricleLeft | | ventricle is normal in size and function. Ejection fraction isestimated at 70 %.Impaired | | relaxation compatible with diastolic dysfunction (reversed E/Aratio).Mild concentric | | left ventricular hypertrophy.Right AtriumNormal right atrium.Right VentricleNormal right | | ventricular structure and function.Pericardial EffusionNo evidence of pericardial | | effusion.MiscellaneousMild to moderate aortic root dilatation measuring 4.5 cm in | | diameter.The IVC appears normal.Valves Mitral Valve Aortic ValveStructures Left Atrium | | LA A/P Dimension: 4.6 cm LA Volume: 42 ml LA Vol/BSA Index: | | 17 mL/m^2 EF [id number]% Left Ventricle Diastolic Dimension: | | 4.8 cm Systolic Dimension: 2.4 cm Septum Diastolic: 1.4 cm PW Diastolic: 1.4 cm | | EF Calculated: 69% Miscellaneous Aorta Aortic Root: 4.5 cm | |Rhythm: Normal Sinus Rhythm | | | |Conclusions | |Summary | |1. Normal left ventricular size with a mild concentric left ventricular | |hypertrophy. Left ventricular systolic function is preserved. LVEF is 70%. | |2. Grade 1 left ventricular diastolic dysfunction. | |3. Normal valvular structure. | |4. Mild to moderate aortic root dilatation measuring 4.5 cm in diameter. | |5. Normal right-sided pressure. | |6. Normal IVC with normal respiratory collapse. | | | |Signature | | | | Electronically signed by YAMEL DYKES MD(Interpreting physician) on | | 07/24/2016 06:20 AM | | | | | |Findings | |Mitral Valve | |Structurally normal mitral valve without significant stenosis or | |regurgitation. | |Aortic Valve | |Aortic valve is trileaflet without significant stenosis or regurgitation. | |Tricuspid Valve | |Structurally normal tricuspid valve without significant stenosis or | |regurgitation. | |Pulmonic Valve | |Structurally normal pulmonic valve without significant stenosis or | |regurgitation. | |Left Atrium | |Normal left atrium. | |Left Ventricle | |Left ventricle is normal in size and function. Ejection fraction is | |estimated at 70 %. | |Impaired relaxation compatible with diastolic dysfunction (reversed E/A | |ratio). | |Mild concentric left ventricular hypertrophy. | |Right Atrium | |Normal right atrium. | |Right Ventricle | |Normal right ventricular structure and function. | |Pericardial Effusion | |No evidence of pericardial effusion. | | | |Miscellaneous | |Mild to moderate aortic root dilatation measuring 4.5 cm in diameter. | |The IVC appears normal. 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
--- OUTSIDE RECORDS SUMMARY | ~2019-09-27 | XMS | Encounter Summary ---
Demographics + + + | Address | [address] | | | [place] [address] | + + + | Home Phone | | + + + | Preferred Language | Unknown | + + + | Marital Status | | + + + | Buddhist Affiliation | 1013 | + + + | Race | Unknown | + + + | Ethnic Group | Unknown | + + + Author + + + | Author | [facility] | | | and [place] | + + + | Organization | [facility] | | | and [...] [place] | | | | | [address] | | + + + + + Care Team Providers + +------+ + | Care Paper Folder Name | Role | Phone | + +------+ + | Earle Chacko MD | PCP | | + +------+ + Encounter Details +--------+ + + + + | Date | Type | Department | Care Team | Description | +--------+ + + + + | 07/21/ | Hospital | [facility] | Mohamud, | Diffuse large B-cell | | 2016 | Encounter | [facility] | Gerber Benson MD [address] | lymphoma of | | | | [facility] [address] [place] | intra-abdominal | | | | [address] [place] | [place] [address] | lymph nodes (HCC) | | | | [place] [address] | [phone] | (Primary Dx) | | | | [phone] | | | | | | | Olga Pepe, | | | | | | PharmD [address] | | | | | [address] [place], [place] | | | | | | [address] | | | | | | | [...] documented as of this encounter Progress Notes Olga Pepe, PharmD - 07/21/2016 1:49 PM PDTFormatting of this note might be differ ent from the original. Clinical Oncology Pharmacy Services Progress Note [facility] Pt. Name/Age/: Gerber Galindo 66 y.o. 1950 CSN: [id number] Date of service: 07/21/2016 Provider: Olga Pepe PHARMD Identifying Statement: Gerber Galindo is a 66 y.o. 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 The patient chart and medications were reviewed in detail and the patient was seen and exam ined. Patient was referred to Clinical Oncology Pharmacist for chemotherapy education/coordinatio n, by Dr. Mallory. Assessment and plan: Patient seen today for initial education session and to assess need to be admitted for chem otherapy. Unfortunately he was not able to complete his PET scan due to feeling claustrophob ic, and refuses to "ever do that again." Discussed with Dr Byrd, without imaging or b one marrow biopsy to evaluate full extent of disease, patient must commit to 6 cycles of R-C HOP. Patient subjectively does not feel worse since his consult with Dr Mallory. Side ef fects discussed include: neutropenia, anemia, constipation, peripheral neuropathies, cardiac toxicities, nausea/vomiting, fatigue, infusion reactions, and hair loss. Spent several doreen blank discussing pain management, with patient unable to tolerate opioids due to difficulty sl eeping and constipation. 1. Return to clinic on Sunday07/25/16 to be assessed by Dr Mallory. If deemed appropri ate, will start cycle #1 of R-CHOP. 2. Baseline ECHO scheduled for today 07/21/16. 3. Start allopurinol 300 mg po daily for tumor lysis prophylaxis. 4. Increase tramadol to 50-100 mg po q 6-8 hours. Subjective: The patient chart and medications were reviewed in detail and the patient was seen and exam inedChristian Galindo is a 66 y.o. male here for chemotherapy education. Initially over the phone with our chemo nurse, Patricia, patient seemed to describe worsening of disease since consultation. However, in clinic today, patient did not indicate symptoms o f worsening lymphoma. Patient is fearful of his diagnosis, and chemotherapy in general, la tineo lost several family members to cancer. As part of his routine workup, patient was schedul ed for PET scan today. He was unable to complete this due to feeling claustrophobic. He desc ribes a feeling similar to his previous heart attack. He is absolutely addamit that he will never do a PET scan again, still visibly worked up at time of exam. We spent several minute s discussing his diagnosis and the need to start R-CHOP regardless of PET results, but witho ut those results would be looking at longer duration of treatment. We also went over risk of extravasation and the vesicant nature of doxorubicin. He is not ready or willing to be admi tted to start chemotherapy today. Dr Mallory alerted to all of this, and is ok with the above plan. PMH: Past Medical History Diagnosis Date Chronic ischemic heart disease Depression Dyspnea Esophageal reflux Hyperglycemia Hyperlipemia Hypertension Benign neoplasm of colon Obesity Superficial injury of forearm Social & Family Hx: Social History Social History Marital Status: Spouse Name: N/A Number of Children: N/A Years of Education: N/A Social History Main Topics Smoking status: Former Smoker -- 3.00 packs/day for 22 years Quit date: 07/18/1990 Smokeless tobacco: Never Used Alcohol Use: Yes Comment: Occasionally - Drug Use: No Sexual Activity: Partners: Female Other Topics Concern Not on file Social History Narrative Family History Problem Relation Age of Onset Cancer Mother lymphoma and leukemia Cancer Father multiple myeloma Heart attack Father Review of Systems: Constitutional: Denies fever or chills, or weight loss. Eyes: Denies change in visual acuity HEENT: Denies nasal congestion or sore throat Respiratory: Denies cough or shortness of breath Cardiovascular: Denies chest pain or edema GI: Denies abdominal pain, nausea, vomiting, bloody stools or diarrhea : Denies dysuria urgency or frequency. Musculoskeletal: Denies any bone pain Integument: Denies rash, bruising, petechia Neurologic: Denies headache, focal weakness or sensory changes Lymphatic: Denies swollen glands Review of systems as above, otherwise negative Medications: Current Outpatient Prescriptions Medication Sig allopurinol (ZYLOPRIM) 300 mg tablet Take 1 tablet by mouth Daily. aspirin 81 mg EC tablet Take 162 mg by mouth Daily. atorvaSTATin (LIPITOR) 40 mg tablet carvedilol (COREG) 25 mg tablet Take 50 mg by mouth Daily. cetirizine (ZYRTEC) 10 mg tablet Take 10 mg by mouth Daily. clotrimazole-betamethasone (LOTRISONE) cream Apply topically 2 times daily. gabapentin (NEURONTIN) 100 mg capsule Take 200 mg by mouth Daily. gabapentin (NEURONTIN) 300 mg capsule Take 300 mg by mouth Daily. levothyroxine (SYNTHROID, LEVOTHROID) 50 mcg tablet omeprazole (PRILOSEC) 20 mg capsule Take 20 mg by mouth every morning (before breakfast ). XARELTO 10 MG tablet No current facility-administered medications for this encounter. Allergies: Allergies Allergen Reactions Codeine "wires him up" Vitals: on Temp :No Data Recorded No intake or output data in the 24 hours ending 07/21/16 1349 Wt. Current: Diagnostic studies: Available data and images were reviewed personally. See reports. Significant results and findings are addressed here or in the Assessment and Plan. No results for input(s): WBC, HGB, HCT, PLT in the last 168 hours. No results for input(s): NA, K, CL, CO2, BUN, CREA, GLU, MG, CALCIUM, PHOS, BILITOT, AST, A LT, ALKPHOS, ALBUMIN in the last 168 hours. Invalid input(s): PROT Imaging: Ct Abdomen Pelvis W Contrast 07/17/2016 External films for comparison only - no result from [facility]. Vas Lower Extremity Venous Left 07/17/2016 External films for comparison only - no result from [facility]. Xr Chest 2 Vw 07/17/2016 External films for comparison only - no result from [facility]. Imaging Report - External Scan 07/21/2016 Ordered by an unspecified provider. Imaging Report - External Scan 07/04/2016 Ordered by an unspecified provider. Imaging Report - External Scan 2016 Ordered by an unspecified provider. Imaging Report - External Scan 2016 Ordered by an unspecified provider. Electronically signed by: Olga Pepe PHARMD 07/21/2016 13:49 Total time in face to face discussion with the patient and family was 90 minutes; more than 50% of the time was spent counseling about cytotoxic chemotherapy and side effect managemen t. documented in this encounter Plan of Treatment +--------+---------+ + + + | Date | Type | Specialty | Care Team | Description | +--------+---------+ + + + | 10/01/ | Office | Cardiology | Karen Bansal, | | | 2019 | Visit | | MD Patricia JOHNSON | | | | | | [place] | | | | | | [address] | | | | | | | | +--------+---------+ + + + documented as of this encounter Visit Diagnoses + + | Diagnosis | + + | 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
--- OUTSIDE RECORDS SUMMARY | ~2019-09-27 | XMS | Encounter Summary ---
Demographics + + + | Address | [address] | | | [place] [address] | + + + | Home Phone | | + + + | Preferred Language | Unknown | + + + | Marital Status | | + + + | Confucianist Affiliation | [id number] | + + + | Race | Unknown | + + + | Ethnic Group | Unknown | + + + Author + + + | Author | Merged With [facility] | | | and [place] | + + + | Organization | Merged With [facility] | | | [...] [place] | | | | | [address] | | + + + + + Care Team Providers + +------+ + | Care Manager Net Name | Role | Phone | + +------+ + | Earle Chacko MD | PCP | | + +------+ + Reason for Referral Evaluate & Treat (Routine) +--------+ + + + + + | Status | Reason | Specialty | Diagnoses / | Referred By | Referred To | | | | | Procedures | Contact | Contact | +--------+ + + + + + | Closed | Specialty | Surgery | Diagnoses | | David Morton | | | Services | | Primary | Nikhil, | [place] | | | Required | | cutaneous | Joaquim Benson, | [address] | | | | | diffuse | MD [address] | [place] | | | | | large cell | [address] | [place], [place] | | | | | B-cell | [place], | [address] | | | | | lymphoma | [place] [address] | Phone: | | | | | ([facility]) | Phone: | [phone] | | | | | | [phone] | Fax: | | | | | | Fax: | [phone] | | | | | | [phone] | | +--------+ + + + + + Diagnostic/Screening (Routine) +--------+--------+ + + + + | Status | Reason | Specialty | Diagnoses / | Referred By | Referred To | | | | | Procedures | Contact | Contact | +--------+--------+ + + + + | Closed | | Radiology | Diagnoses | | [facility] | | | | | Primary | Nikhil, | [address] | | | | | cutaneous | Joaquim C, | [place], | | | | | diffuse | MD [address] | [place] | | | | | large cell | [address] | [address] | | | | | B-cell | [place], | Phone: | | | | | lymphoma | [place] [address] | [phone] | | | | | (HCC) | Phone: | Fax: | | | | | Procedures | [phone] | [phone] | | | | | ECHO | Fax: | | | | | | Complete | [phone] | | +--------+--------+ + + + + Diagnostic/Screening (Routine) +--------+--------+ + + + + | Status | Reason | Specialty | Diagnoses / | Referred By | Referred To | | | | | Procedures | Contact | Contact | +--------+--------+ + + + + | Closed | | Radiology | Diagnoses | | [facility] | | | | | Primary | Nikhil, | Scan [address] | | | | | cutaneous | Joaquim C, | [address] [place] | | | | | diffuse | MD [address] | [place], [place] | | | | | large cell | [address] | [address] | | | | | B-cell | [place], | Phone: | | | | | lymphoma | [place] [address] | [phone] | | | | | (HCC) | Phone: | Fax: | | | | | Procedures | [phone] | [phone] | | | | | PET CT Skull | Fax: | | | | | | Base To Mid | [phone] | | | | | | Thigh | | | +--------+--------+ + + + + Reason for Visit + + + | Reason | Comments | + + + | Consultation | | + + + Evaluate & Treat (Routine) +--------+ + + + + + | Status | Reason | Specialty | Diagnoses / | Referred By | Referred To | | | | | Procedures | Contact | Contact | +--------+ + + + + + | Closed | Specialty | Oncology | Diagnoses | [facility], | | | | Services | | Small cell | David Fung | Nikhil, | | | Required | | B-cell | [address] | Joaquim Benson MD | | | | | lymphoma | [address] | [address] | | | | | (HCC) [address] | [address] [place] | | | | | cell | [place], | [place], [place] | | | | | lymphoma | [place] [address] | [address] Phone: | | | | | Procedures | Phone: | [phone] | | | | | [place] OFFICE | [phone] | Fax: | | | | | OUTPATIENT | Fax: | [phone] | | | | | VISIT 25 | [phone] | | | | | | MINUTES | | | | | | | Evaluate | | | +--------+ + + + + + Encounter Details +--------+ + + + + | Date | Type | Department | Care Team | Description | +--------+ + + + + | 07/18/ | Hospital | [facility] | Nikhil, | Primary cutaneous | | 2016 | Encounter | [facility] | Joaquim Benson MD [address] | diffuse large cell | | | | [facility] [address] [place] | B-cell lymphoma | | | | [address] [place] | [place] [address] | (HCC) (Primary Dx); | | | | [place] [address] | [phone] | Diffuse large B-cell | | | | [phone] | | lymphoma of | | | | | | intra-abdominal | | | | | | lymph nodes (HCC) | +--------+ + + + + Social [...] + + + | Blood Pressure | 137/79 | 07/18/2016 4:16 PM | | | | | PDT | | + + + + + | Pulse | 63 | 07/18/2016 4:16 PM | | | | | PDT | | + + + + + | Temperature | 37.1 C (98.8 F) | 07/18/2016 4:16 PM | | | | | PDT | | + + + + + | Respiratory Rate | 16 | 07/18/2016 4:16 PM | | | | | PDT | | + + + + + | Oxygen Saturation | 94% | 07/18/2016 4:16 PM | | | | | PDT | | + + + + + | Inhaled Oxygen | - | - | | | Concentration | | | | + + + + + | Weight | 135.8 kg (299 lb 4.8 | 07/18/2016 4:16 PM | | | | oz) | PDT | | + + + + + | Height | 188 cm (6' 2") | 07/18/2016 4:16 PM | | | | | PDT | | + + + + + | Body Mass Index | 38.43 | 07/18/2016 4:16 PM | | | [...] encounter Progress Notes Joaquim Tejeda MD - 07/18/2016 4:18 PM PDTFormatting of this note might be differe nt from the original. Hematology/Oncology Progress Note [facility] DANIEL Blanca Pt. Name/Age/: Joaquim Galindo 66 y.o. 1950 Med. Record Number: [id number] Date of admission: 07/18/2016 Identifying Statement: Joaquim Galindo is a 66 y.o. male from [address] [address] with Diffuse Large B-Cell Lymphoma. The patient chart and medications were reviewed in detail and the patient was seen and exam ined. History of Present Illnesses, their Current Assessments and Plans: Problems That Were Updated This Visit Lymphoma Overview ACTIVE DIAGNOSIS: Diffuse Large B-Cell Lymphoma. 1. Presentation with a three month history of progressive Left lower extremity edema, urina ry frequency and bowel irregularity. Left lower extremity venous doppler 2016 ([facility]) No DVT left lower extremity. CT abdomen/Pelvis with contrast 2016 ([facility]). Ex tensive periaortic lymphadenopathy (1.8 cm and 2.1 cm respectively), extensive adenopathy ex tending out along the left common iliac artery and encasing the left external iliac artery ( 4.4 cm) with compromise of the left external iliac vein. 2. Open laparotomy with LEFT ileal retroperitoneal lymph node biopsy ([facility], [facility]) June 242015. Specimen #[id number] ([facility]); Diffuse Large B-Cell lymph raciel, germinal center subtype (75%). 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 Overall Ki-67 expre ssion 70%. Current Assessment & Plan This was an extended, 60 minute, office encounter with Joaquim Galindo "TAMMY" and his wi fe Mara at the [facility] on 07/18/2016. We reviewed his presentation with left lower extremity lymphedema, confirmed to be unrelate d to a deep venous thrombosis following Doppler ultrasound. We reviewed his biopsy performe d by Dr. David Morton on July 05, 2016 confirming diffuse large B-cell lymphoma, germinal c enter type. The presence of grade IIIa follicular B-cell lymphoma in 25% of the tumor does not change the prognosis or treatment plan. We discussed the need for comprehensive staging with PET CT scan and bone marrow biopsy and aspiration under conscious sedation. We discussed that his treatment plan will begin with R CHOP chemotherapy. If staging evalu ation confirms extensive disease, then 6 cycles of R CHOP chemotherapy will be prescribed. On the other hand if staging evaluation discloses limited extent of disease, consideration w ill be given to 3 cycles of R CHOP followed by involved field radiation therapy. Our CHOP c hemotherapy will be administered with growth factor support. We discussed the need for baseline echocardiogram for a assessment of cardiac function agai nst which to measure for any future decrease in cardiac function that may be related to anth racycline chemotherapy. We discussed that R-CHOP chemotherapy as optimally administered with central venous access, however with the patient's very symptomatic presentation and anxiety regarding initiating t herapy, I did allow that treatment can be started promptly with cycle #1 of our CHOP chemoth erapy being administered through peripheral IV access under constant nursing supervision and plans be made at a later time for Port-A-Cath for stable IV access for ongoing treatment. We talked about the side effect profile of our CHOP chemotherapy which includes but is not limited to nausea, vomiting, hair loss, bowel irregularity, lowering of the blood counts and opportunistic infection, permanent heart damage due to anthracycline toxicity, kidney toxic ity due to tumor lysis syndrome, and peripheral neuropathy due to vincristine. We talked about the option of a second opinion at a tertiary Medical Center. The option of no treatment and referral to hospice. After the end of a thorough discussion with Tammy and Mara, Tammy indicated his desire to proceed promptly with R CHOP chemotherapy. Plan; PET/CT scan. Bone marrow biopsy and aspiration are conscious sedation. Cardiac echocardiogram. R CHOP chemotherapy prior authorization including Neulasta for growth factor support. Review of Systems: REVIEW OF SYSTEMS Constitutional: Reports energy level has been decreased for about 2 to 3 months. Denies fat igue. Denies high fevers, shaking chills, anorexia, nausea, vomiting, weight loss, or night sweats. Appetite without changes. Ear, Nose, Mouth, Throat: Denies odynophagia, dysphagia, or tinnitus. Cardiovascular: Denies shortness of breath, dyspnea on exertion, chest pain, palpitations o r orthopnea. Respiratory: Denies cough, hemoptysis, or sputum production. Gastrointestinal: Denies abdominal pain, constipation, diarrhea, melena, or bright red bloo d per rectum. Genitourinary: Reports getting up at night to urinate 4 to 5 times a night. Denies hematuri a or dysuria. Musculoskeletal: Reports back pain for years. Denies joint pain or tenderness. Neurologic: Denies headache, visual changes, or numbness/tingling of the extremities. Endocrine: Reports edema in lower extremities. Denies heat/cold intolerance. Hematologic: Denies spontaneous bruising or bleeding. Integumentary: Denies rash, wounds or other skin concerns. Pain: Reports back, left leg, and groin pain today that he rates 5/10. ROS: otherwise normal Note: Patient here for consultation with Dr. Tejeda for lymphoma referred by Dr. Chacko . My chart: Active Review of systems as [...] levothyroxine (SYNTHROID, LEVOTHROID) 50 mcg tablet 3 omeprazole (PRILOSEC) 20 mg capsule Take 20 mg by mouth every morning (before breakfast ). XARELTO 10 MG tablet 0 No current facility-administered medications for this encounter. [...] lymphoma of intra-abdominal lymph nodes Objectives: Temp: 37.1 C (98.8 F) BP: 137/79 mmHg Pulse: 63 Resp: 16 SpO2: 94 % on Min/Max Temp past 24 hours:Temp Av.1 C (98.8 F) Min: 37.1 C (98.8 F) Max: 3 7.1 C (98.8 F) No intake or output data in the 24 hours ending 07/18/161956 Wt. Admission: Weight: 135.762 kg (299 lb 4.8 oz) Wt. Current: Weight: 135.762 kg (299 lb 4.8 oz) Wt Readings from Last 3 Encounters: 07/18/16 135.762 kg (299 lb 4.8 oz) Physical Exam: General: The patient is alert and oriented. In mild distress due to Left Lower extremity Lymphedema. Eyes: Conjunctiva clear. Sclera anicteric. ENMT: Oropharynx fee of lesions, mucous membranes moist. Cardiovascular: Regular rate and rhythm, no rubs, gallops, or murmurs. Lungs: Clear to auscultation and percussion. Abdomen: Soft, nontender, no hepatospenomegaly. No palpable masses. Bowel sounds present. Infraumbilical surgical scar is well-healed, and covered with steri-strips. : No scrotal edema. Extremities: 3+ asymmetrical LEFT lower extremity lymphedema to the inguinal crease. Skin: No rashes, bruising, or petechiae. Lymph: [...] Menezes., Donal Trejo, Vy Rodriguez., Armando Diamond., [place], P .P.: Toxicity And Response Criteria Of [...] here or in the Assessment and Plan. Complete blood counts from [facility] July 06, 2016 white co unt 7700 hemoglobin 10.9 g/dL hematocrit 33% platelet count 147,000. Complete metabolic panel [facility] July 06, 2016 uric acid 6 .8 mg/dL (upper limits of normal 7.6 mg/dL) ALT 15 alkaline phosphatase 52 bilirubin 0.5, protein 5.7 albumin 3.5 calcium 9.6 phosphoru s 2.9 BUN 19 creatinine 0.8 GFR 97 sodium 135 potassium 3.9 chloride 103 CO2 24 Pharmacovigilance: Palliative Care: Procedure: Joint Commission on the Accreditation of Hospital Organizations Requirements for patient undergoing conscious sedation The history and physical examination is delineated within the scope of this note. Airway Assessment: Mallampati classification is class 2. Cervical spine mobility is good range of motion. Mouth opening is three finger-breadths. No evidence of micrognathia. No evidence of prominent incisors. No evidence of macroglossia. No prior history of tracheostomy. No prior history of sleep apnea syndrome. The [place] [employer]esthes[employer] patient classification is class 2. The nature and character of the proposed procedure of bone marrow biopsy and aspiration und er conscious sedation;the anticipated results of the proposed procedure of bone marrow biops y under conscious sedation; recognized alternative forms of the procedure such as performing bone marrow biopsy and aspiration under local anesthesia only or abandoning plans for the p rocedure altogether; the risks, benefits, and side effects of the proposed procedure of bone marrow biopsy and aspiration under conscious sedation, alternative procedures and no proced ure was discussed with the patient, and he consents to proceed with bone marrow biopsy and a spiration under conscious sedation. The patient was instructed to skip breakfast on the morn ing of the procedure, the patient can take morning medicines with a sip of water, the patien t does not have to interrupt any therapeutic anticoagulation, the patient should have someon e drive them home. JOAQUIM TEJEDA MD Portions of this chart may have been created with [employer] voice recognition software. Occasi onal wrong-word or [...] ROB | | | | | | [id number] | | | | | | | | +--------+---------+ + + + + + +--------+ + + | Name | Type | Priori | Associated Diagnoses | Order Schedule | | | | ty | | | + + +--------+ + + | Biopsy bone marrow | Procedures | Routin | Primary cutaneous | 1 Occurrences | | | | e | diffuse large cell | starting 07/18/2016 | | | | | B-cell lymphoma | until 07/18/2017 | | | | | (HCC) | | + + +--------+ + + | Pathology Bone | Pathology | Routin | Primary cutaneous | 1 Occurrences | | Marrow Biopsy | and | e | diffuse large cell | starting 07/18/2016 | | Request | Cytology | | B-cell lymphoma | until 07/18/2017 | | | | | (HCC) | | + + +--------+ + + + + +--------+ + + | Name | Type | Priori | Associated Diagnoses | Order Schedule | | | | ty | | | + + +--------+ + + | General Surgery, | Outpatient | Routin | Primary cutaneous | Ordered: 07/18/2016 | | External - AMB | Referral | e | diffuse large cell | | | Referral | | | B-cell lymphoma | | | | | | (HCC) | | + + +--------+ + + documented as of this encounter Procedures + +--------+ + + + | Procedure Name | Priori | Date/Time | Associated Diagnosis | Comments | | | ty | | | | + +--------+ + + + | IMAGING REPORT - | | 07/21/2016 | | Results for this | | EXTERNAL SCAN | | 12:00 AM | | procedure are in the | | | | PDT | | results section. | + +--------+ + + + | LABS - EXTERNAL SCAN | | 07/06/2016 | | Results for this | | | | 12:00 AM | | procedure are in the | | | | PDT | | results section. | + +--------+ + + + | PATHOLOGY - EXTERNAL | | 07/05/2016 | | Results for this | | SCAN | | 12:00 AM | | procedure are in the | | | | PDT | | results section. | + +--------+ + + + | IMAGING REPORT - | | 07/04/2016 | | Results for this | | EXTERNAL SCAN | | 12:00 AM | | procedure are in the | | | | PDT | | results section. | + +--------+ + + + | IMAGING REPORT - | | 2016 | | Results for this | | EXTERNAL SCAN | | 12:00 AM | | procedure are in the | | | | PDT | | results section. | + +--------+ + + + | IMAGING REPORT - | | 2016 | | Results for this | | EXTERNAL SCAN | | 12:00 AM | | procedure are in the | | | | PDT | | results section. | + +--------+ + + + documented [...] Number JOAQUIM Patient Number | | | [id number] Date of Study 07/21/2016 Visit Number | | | [id number] Referring Physician | | | NIKHIL Benson Number Date of 1950 | | | Manager Operations Research [facility] Age | | | 66 year(s) Interpreting YAMEL DYKES MD | | | Daily Sales Audit Clerk Gender | | | Male Nurse Procedure [...] Index: 17 mL/m^2 | | | EF Kfedjtepl40% Left Ventricle Diastolic Dimension: | | | [...] | LA Vol/BSA Index: 17 mL/m^2 EF Wbuiftcyi88% | | | | | | Left [...] Room Number JOAQUIM | | Patient Number [id number] Date of Study 07/21/2016 Visit Number | | [id number] Referring Physician NIKHIL Benson | | Number Date of 1950 Manager Operations Research [facility] Age | | 66 year(s) Interpreting YAMEL DYKES MD | | Daily Sales Audit Clerk Gender Male NurseProcedureType of Study TTE | [...] Vol/BSA Index: | | 17 mL/m^2 EF Bcsgmltql22% Left Ventricle Diastolic Dimension: | | 4.8 [...] | LA Vol/BSA Index: 17 mL/m^2 EF Lhfhnfjuo23% | | | | Left Ventricle | | | | Diastolic Dimension: 4.8 cm Systolic Dimension: 2.4 cm | | Septum Diastolic: 1.4 cm | | PW Diastolic: 1.4 cm | | EF Calculated: 69% | | | | Miscellaneous | | | | Aorta | | | | Aortic Root: 4.5 cm | + + PET CT Skull Base To Mid Thigh (07/21/2016 1:16 PM PDT) + + | Specimen | + + | | + + + + ----+ | Narrative | Performed At | + + ----+ | PET CT SKULL | [facility] | | BASE TO MID THIGH 07/21/2016 10:15 AM HISTORY: Initial staging large | | | cell lymphoma. COMPARISON: Multiple priors. PROTOCOL: The patient was | | | initially injected with 13.590 mCi FDG F-18. Althougha low dose CT | | | scan was obtained, the patient could not tolerate finishing thePET | | | segment of the study. The patient's fasting blood glucose level at the | | | timeof injection was 82 mg/dL. FINDINGS:In the anterior left | | | supraclavicular region, 3 hypermetabolic lymph nodes areobserved that | | | measure 0.7 cm, 0.9 cm, and 1.9 cm short axis with maximum SUV of14.74 | | | (CT images 154 through 156, PET images 2 through 5). In the posterior | | | leftsupraclavicular region, 2 small hypermetabolic lymph nodes are | | | present thatmeasure 0.6 cm and 0.7 cm with maximum SUV of 5.07 (CT | | | image 157, PET image 6). There are significantly enlarged lymph nodes | | | in the retroperitoneum measuring upto 2.2 cm (CT image 77). Enlarged | | | iliac chain lymph nodes are seen with the leftside more than the right | | | with the largest in the left external iliac chainmeasuring up to 6.2 | | | cm. SUV measurements of these nodes cannot be obtained asthe patient | | | could not finish the PET portion of the examination There is | | | physiologic uptake in the brain. A moderate size mucous retention | | | cystis in the right maxillary sinus. The ascending thoracic aorta is | | | significantly ectatic and measures 4.9 cm in theAP dimension. There is | | | mild atherosclerosis of the thoracic aorta. Mild | | | coronarycalcifications are noted. There is mild to moderate left | | | hydronephrosis and hydroureter possibly due todistal obstruction from | | | lymphadenopathy. The prostate is mildly prominent. IMPRESSION | | | -Incomplete examination as the patient could not tolerate finishing | | | the PETportion of the study. Hypermetabolic lymph nodes of the left | | | supraclavicular region. Multiple enlarged lymph nodes in the | | | retroperitoneum and the iliac chains withthe left side more than the | | | right. The largest lymph node is in the leftexternal iliac chain and | | | measures up to 6.2 cm. SUV measures could not beobtained due to | | | incompleteness of the examination. Mild to moderate left | | | hydronephrosis likely due to distal obstruction fromlymphadenopathy. 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 | | | Dictated and Signed by: Nathen Mason MD Electronically signed: | | | 07/21/2016 4:12 PM | | |IMPRESSION - | | |Incomplete examination as the patient could not tolerate finishing the PET | | |portion of the study. | | | | | |Hypermetabolic lymph nodes of the left supraclavicular region. | | | | | |Multiple enlarged lymph nodes in the retroperitoneum and the iliac chains with | | |the left side more than the right. The largest lymph node is in the left | | |external iliac chain and measures up to 6.2 cm. SUV measures could not be | | |obtained due to incompleteness of the examination. | | | | | |Mild to moderate left hydronephrosis likely due to distal obstruction from | | |lymphadenopathy. 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 | | | | | |Dictated and Signed by: Nathen Mason MD | | | Electronically signed: 07/21/2016 4:12 PM | | | | | + + ----+ + + | Procedure Note | + + | Dario, Rad Results In - 07/21/2016 4:[address] SKULL BASE TO MID THIGH | | 07/21/2016 10:15 AMHISTORY: Initial staging large cell lymphoma.COMPARISON: Multiple | | priors.PROTOCOL: The patient was initially injected with 13.590 mCi FDG F-18. Althougha | | low dose CT scan was obtained, the patient could not tolerate finishing thePET segment | | of the study. The patient's fasting blood glucose level at the timeof injection was 82 | | mg/dL.FINDINGS:In the anterior left supraclavicular region, 3 hypermetabolic lymph nodes | | areobserved that measure 0.7 cm, 0.9 cm, and 1.9 cm short axis with maximum SUV of14.74 | | (CT images 154 through 156, PET images 2 through 5). In the posterior | | leftsupraclavicular region, 2 small hypermetabolic lymph nodes are present thatmeasure | | 0.6 cm and 0.7 cm with maximum SUV of 5.07 (CT image 157, PET image 6).There are | | significantly enlarged lymph nodes in the retroperitoneum measuring upto 2.2 cm (CT | | image 77). Enlarged iliac chain lymph nodes are seen with the leftside more than the | | right with the largest in the left external iliac chainmeasuring up to 6.2 cm. SUV | | measurements of these nodes cannot be obtained asthe patient could not finish the PET | | portion of the examinationThere is physiologic uptake in the brain. A moderate size | | mucous retention cystis in the right maxillary sinus.The ascending thoracic aorta is | | significantly ectatic and measures 4.9 cm in theAP dimension. There is mild | | atherosclerosis of the thoracic aorta. Mild coronarycalcifications are noted.There is | | mild to moderate left hydronephrosis and hydroureter possibly due todistal obstruction | | from lymphadenopathy.The prostate is mildly prominent.IMPRESSION -Incomplete examination | | as the patient could not tolerate finishing the PETportion of the study.Hypermetabolic | | lymph nodes of the left supraclavicular region.Multiple enlarged lymph nodes in the | | retroperitoneum and the iliac chains withthe left side more than the right. The largest | | lymph node is in the leftexternal iliac chain and measures up to 6.2 cm. SUV measures | | could not beobtained due to incompleteness of the examination.Mild to moderate left | | hydronephrosis likely due to distal obstruction fromlymphadenopathy.Significant ectasia | | of ascending thoracic aorta measuring 4.9 cm.Dictated and Signed by: Nathen Mason MD | | Electronically signed: 07/21/2016 4:12 PM | |AP dimension. There is mild atherosclerosis of the thoracic aorta. Mild coronary | |calcifications are noted. | | | |There is mild to moderate left hydronephrosis and hydroureter possibly due to | |distal obstruction from lymphadenopathy. | | | |The prostate is mildly prominent. | | | |IMPRESSION - | |Incomplete examination as the patient could not tolerate finishing the PET | |portion of the study. | | | |Hypermetabolic lymph nodes of the left supraclavicular region. | | | |Multiple enlarged lymph nodes in the retroperitoneum and the iliac chains with | |the left side more than the right. The largest lymph node is in the left | |external iliac chain and measures up to 6.2 cm. SUV measures could not be | |obtained due to incompleteness of the examination. | | | |Mild to moderate left hydronephrosis likely due to distal obstruction from | |lymphadenopathy. | | | |Significant ectasia of ascending thoracic aorta measuring 4.9 cm. | | | |Dictated and Signed by: Nathen Mason MD | | Electronically signed: 07/21/2016 4:12 PM | + + + +---------+ + + | Performing | Address | City/State/Zipcode | Phone Number | | Organization | | | | + +---------+ + + | [facility] | | | | + +---------+ + + IMAGING REPORT - EXTERNAL SCAN (07/21/2016 12:00 AM PDT) + + + | Narrative | Performed At | + + + | Ordered by an | | | unspecified provider. | | + + + LABS - EXTERNAL SCAN (07/06/2016 12:00 AM PDT) + + + | Narrative | Performed At | + + + | Ordered by an | | | unspecified provider. | | + + + PATHOLOGY - EXTERNAL SCAN (07/05/2016 12:00 AM PDT) + + + | Narrative | Performed At | + + + | Ordered by an | | | unspecified provider. | | + + + IMAGING REPORT - EXTERNAL SCAN (07/04/2016 12:00 AM PDT) + + + | Narrative | Performed At | + + + | Ordered by an | | | unspecified provider. | | + + + IMAGING REPORT - EXTERNAL SCAN (2016 12:00 AM PDT) + + + | Narrative | Performed At | + + + | Ordered by an | | | unspecified provider. | | + + + IMAGING REPORT - EXTERNAL SCAN (2016 12:00 AM PDT) + + + | Narrative | Performed At | + + + | Ordered by an | | | unspecified provider. 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
--- OUTSIDE RECORDS SUMMARY | ~2019-09-27 | XMS | Encounter Summary ---
Demographics + + + | Address | [address] | | | [place] [address] | + + + | Home Phone [...] [place] | | | | | [address] | | + + + + + Care Team Providers + +------+ + | [employer] Producer Name | Role | Phone | + [...] large b-cell | Gerber Benson, | [address] | | | | | lymphoma, | MD [address] | [place], | | | | | intra-abdomi | [address] | [place] [address] | | | | | nal lymph | [place], | Phone: | | | | | nodes (HCC) | [place] [address] | [phone] | | | | | Procedures | Phone: | Fax: | | | | | [place] | [phone] | [phone] | | | | | INJECTION, | Fax: | | | | | | FAMOTIDINE, | [phone] | | | | | | 20 MG CO | | | | | | | RITUXIMAB | | | | | | | INJECTION, | | | | | | | 100 MG CO | | | | | | | LORAZEPAM | | | | | | | INJECTION, 2 | | | | | | | MG CO | | | | | | | MEPERIDINE | | | | | | | HYDROCHL | | | | | | | /100 MG CO | | | | | | | DIPHENHYDRAM | | | | | | | INE HCL | | | | | | | INJECTIO, 50 | | | | | | | MG CO | | | | | | | METHYLPREDNI | | | | | | | SOLONE | | | | | | | INJECTION, | | | | | | | 125 MG CO | | | | | | | DEXAMETHASON | | | | | | | E SODIUM | | | | | | | PHOS, 1 MG | | | | | | | CO NORMAL | | | | | | | SALINE | | | | | | | SOLUTION | | | | | | | INFUS, 500 | | | | | | | ML CO | | | | | | | NORMAL | | | | | | | SALINE | | | | | | | SOLUTION | | | | | | | INFUS, 250 | | | | | | | ML CO | | | | | | | STERILE | | | | | | | WATER/SALINE | | | | | | | , 10 ML CO | | | | | | | CHEMOTHER, | | | | | | | IV PUSH,EA | | | | | | | ADD DRUG CO | | | | | | | CHEMOTHER, | | | | | | | IV INFUSION, | | | | | | | 1 HR CO | | | | | | | CHEMOTHER, | | | | | | | IV INFUSION, | | | | | | | EA HR CO | | | | | | | CHEMOTHER,NO | | | | | | | N-HORMONE | | | | | | | ANTI-NEOPL, | | | | | | | SUB-Q/IM CO | | | | | | | [...] + + | 01/28/ | Hospital | [facility] | Mohamud, | 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 [address] | lymphoma of | | | | INFUSION [address] | [address] [place] | intra-abdominal | | | | [place], | [place] [address] | lymph nodes (HCC) | | | | [place] [address] | [phone] | | | | | [phone] | | | +--------+ + + + [...] documented as of this encounter Progress Notes Hanh Sampson RN - 01/28/2018 1:29 PM PDTPatient discharged in satisfactory conditi on. Discharged ambulatory. With family. To home. Future appointments and After Visit Summary (AVS) provided. Harinder Pérez RN - 01/28/2018 9:26 AM PDTViewed chart for weight, vital signs and lab results. Also viewed chart for completion of medication and allergy review prior to treatment.Electronica lly signed by Sarath Sousa RN at 01/28/2018 9:28 AM PDTdocumented in this encounter Plan of Treatment +--------+---------+ + + + | Date | Type | Specialty | Care Team | Description | +--------+---------+ + + + | 10/01/ | Office | Cardiology | Karen Bansal, | | | 2020 | Visit | | [address] | | | | | | [place] | | | | | | [address] | | | | | | | | +--------+---------+ + + + + +------+--------+ + + | Name | Type | Priori | Associated Diagnoses | Order Schedule | | | | ty | | | + +------+--------+ + + | Immunoglobulin, | Lab | STAT | Diffuse large | 1 Occurrences | | Panel, IgG and IgM | | | B-cell lymphoma of | starting 01/28/2018 | | and IgA | | | intra-abdominal | until 01/29/2019 | | | | | lymph nodes (HCC) | | + +------+--------+ + + documented as of this encounter Procedures + +--------+ + + + | Procedure Name | Priori | Date/Time | Associated Diagnosis | Comments | | | ty | | | | + +--------+ + + + | CBC WITH | STAT | 01/28/2018 | Diffuse large | Results for this | | DIFFERENTIAL | | 8:06 AM | B-cell lymphoma of | procedure are in the | | | | PDT | intra-abdominal | results section. | | | | | lymph nodes (HCC) | | + +--------+ + + + | LACTATE | STAT | 01/28/2018 | Diffuse large | Results for this | | DEHYDROGENASE | | 8:06 AM | B-cell lymphoma of | procedure are in the | | | | PDT | intra-abdominal | results section. | | | | | lymph nodes (HCC) | | + +--------+ + + + | COMPREHENSIVE | STAT | 01/28/2018 | Diffuse large | Results for this | | METABOLIC PANEL | | 8:06 AM | B-cell lymphoma of | procedure are in the | | | | PDT | intra-abdominal | results section. | | | | | lymph nodes (HCC) | | + +--------+ + + + documented in this encounter Results CBC with Differential (01/28/2018 8:06 AM PDT) + + + + + + | Component | Value | Ref Range | Performed | Pathologist | | | | | At | Signature | + + + + + + | WBC | 3.4 (L) | 4.0 - 11.0 K/uL | [facility] | [facility] - | | | | | | LABORATORY | | + + + + + + | RBC | 4.38 | 4.30 - 5.70 | [facility] | | | | | M/uL | [facility] | | | | [facility] | [facility] | | | | | | [facility] - | | | | | | LABORATORY | | + + + + + + | Hemoglobin | 12.9 (L) | 13.5 - 18.0 | [facility] | | | | | g/dL | [facility] | | | | | | [facility] | | | | | | [facility] - | | | | | | LABORATORY | | + + + + + + | Hematocrit | 37.9 (L) | 40.0 - 51.0 % | [facility] | | | | | [facility] | | [facility] | [facility] | | | | | | [facility] - | | | | | | LABORATORY | | + + + + + + | MCV | 86.5 | 83.0 - 101.0 fL | [facility] | | | | | [facility] | [facility] | [facility] | | | | | | [facility] - | | | | | | LABORATORY | | + + + + + + | MCH | 29.6 | 28.0 - 35.0 pg | [facility] | | | | | [facility] | | [facility] | [facility] | | | | | | [facility] - | | | | | | LABORATORY | | + + + + + + | MCHC | 34.2 | 32.0 - 36.0 | [facility] | | | | | g/dL | [facility] | | | [facility] | [facility] | | | | | | [facility] - | | | | | | LABORATORY | | + + + + + + | RDW-CV | 16.2 (H) | <15.0 % | [facility] | | | [facility] | [facility] | | | | | | [facility] - | | | | | | LABORATORY | | + + + + + + | Platelet | 101 (L) | 140 - 440 K/uL | [facility] | | | Count | | | [facility] | | | [facility] | [facility] | | | | | | [facility] - | | | | | | LABORATORY | | + + + + + + | MPV | 9.1 | fL | [facility] | | | | [facility] | [facility] | [facility] | | | | | | [facility] - | | | | | | LABORATORY | | + + + + + + | % | 69.1 | 45.0 - 82.0 % | [facility] | | | Neutrophils | | | [facility] | | | | | | [facility] | | | | | | [facility] - | | | | | | LABORATORY | | + + + + + + | % | 20.4 | 20.0 - 45.0 % | [facility] | | | Lymphocytes | | | [facility] | | | | | | [facility] | | | | | | [facility] - | | | | | | LABORATORY | | + + + + + + | % Monocytes | 8.3 | 4.0 - 12.0 % | [facility] | | | | | [facility] | | [facility] | [facility] | | | | | | [facility] - | | | | | | LABORATORY | | + + + + + + | % | 1.8 | 0.0 - 5.0 % | [facility] | | | Eosinophils | | | [facility] | | | | | | [facility] | | | | | | [facility] - | | | | | | LABORATORY | | + + + + + + | % Basophils | 0.4 | 0.0 - 1.0 % | [facility] | | | | | [facility] | | | [facility] | [facility] | | | | | | [facility] - | | | | | | LABORATORY | | + + + + + + | Absolute | 2.30 | 1.80 - 8.50 | [facility] | [...] | Monocytes | | K/uL | [facility] | [...] | Basophils | | K/uL | [facility] | [...] [address] | [place] | [phone] | | [facility] | | [address] | | | - LABORATORY | | | | + + + + + Comprehensive Metabolic Panel (01/28/2018 8:06 AM PDT) + + + + + [...] + + + + | Glucose | 129 (H) | 70 - 109 mg/dL | [...] + + + + | Creatinine | 1.01 | 0.60 - 1.30 | [facility] | [...] | mL/min/1.73m2 | [facility] | | | [facility] | RATE,ESTIMATED | | MEDICAL | | | | mL/min/1.25s0Acab than | | CENTER - | | [...] + + + + | Calcium | 9.7 | 8.3 - 10.5 | [facility] | | | | | mg/dL | [facility] | | | | | | [facility] | | | | | | CENTER - | | | | | | LABORATORY | | + + + + + + | Albumin | 4.0 | 3.2 - 5.0 g/dL | [facility] [...] + + + + | AST | 24Comment: This is an | 10 - 42 [...] + + + + | ALT | 29Comment: This is an | 6 - 45 [...] + + + + | Alkaline | 48Comment: This is an | 40 - 110 U/L | [facility] | | | Phosphatase | appended report. These | | [facility] | | | | results have been | | MEDICAL | | | | appended to a previously | | CENTER - | | | | preliminary verified | | LABORATORY | | | | report. | | | | + + + + + + | Globulin | 1.9 (L) | 2.1 - 3.8 g/dL | [...] + + + + | BUN/Creatin | 14.9 | | [facility] | | | ine Ratio | | | [facility] | [...] + | [facility] | [address] | [place] | [phone] | | [facility] | | [address] | | | - LABORATORY | | | | + + + + + Lactate Dehydrogenase (01/28/2018 8:06 AM PDT) + +-------+ + + + | Component | Value | Ref Range | Performed | Pathologist | | | | | At | Signature | + +-------+ + + + | LDH TOTAL | 135 | 91 - 180 U/L | [facility] | [address] | [place] | [phone] | | [facility] | | [address] | | | - LABORATORY | | [...] | acetaminophen (TYLENOL) tablet | Given | 01/29/20 | 650 mg | | | | 650 mg 650 mg, Oral, ONCE, Mon | | 18 9:34 | | | | | 01/28/18 at 0925, For 1 dose, Give | | AM PDT | | | | | 30 minutes prior to riTUXimab., | | | | | | + +--------+ +--------+------+------+ +---+---+ | | | +---+---+ + +-------+ +-------+---+---+ | famotidine (PEPCID) injection | Given | 01/29/20 | 20 mg | | | | 20 mg 20 mg, Intravenous, ONCE, | | 18 9:34 | | | | | 01/28/18 at 0925, For 1 dose, | | AM PDT [...] heparin 100 units/mL flush | Given | 01/29/20 | 500 | | | | injection 500 Units 500 Units ( | | 18 1:25 | Units | | | | mL), Intracatheter, PRN, Line | | PM PDT | | | | | Care, Starting 01/28/18 at 0924 | | | | | | + +-------+ +-------+---+---+ +---+---+ | | | +---+---+ + +---------+ + +---+---+ | riTUXimab (RITUXAN) 1,000 mg in | New Bag | 01/29/20 | 1,000 mg | | | | sodium chloride 0.9% 1,000 mL | | 18 10:03 | | | | | infusion 1,000 mg (rounded from | | AM PDT | | | | | 997.5 mg = 375 mg/m2 | | | | | | | 2.66 m2 Treatment plan recorded | | | | | | | BSA), Intravenous, ONCE, Mon | | | | | | | 01/28/18 at 1000, For 1 dose, | | [...]
--- OUTSIDE RECORDS SUMMARY | ~2019-09-27 | XMS | Encounter Summary ---
Demographics + + + | Address | [address] | | | [place] [address] | + + + | Home Phone [...] [facility] | | | and [place] | + [...] [place] | | | | | [address] | | + + + + + Care Team Providers + +------+ + | Care Clerk Of Works Name | Role | Phone | + [...] [facility] | | | | | Diffuse | Nikhil, | [address] | | | | | large B-cell | Joaquim C, | [place], | | | | | lymphoma of | MD [address] | [place] | | | | | | [address] | [address] | | | | | intra-abdomi | [place], | Phone: | | | | | nal lymph | [place] [address] | [phone] | | | | | nodes (HCC) | Phone: | Fax: | | | | | Procedures | [phone] | [phone] | | | | | ECHO | Fax: | | | | | | Complete | [phone] | | +--------+--------+ + + + + Reason for Visit Diagnostic/Screening (Routine) +--------+--------+ + + + + | Status | Reason | Specialty | Diagnoses / | Referred By | Referred To | | | | | Procedures | Contact | Contact | +--------+--------+ + + + + | Closed | | Radiology | Diagnoses | | [facility] | | | | | Diffuse | Nikhil, | [address] | | | | | large B-cell | Joaquim Benson, | [place], | | | | | lymphoma of | [address] | [place] | | | | | | [address] | [address] | | | | | intra-abdomi | [place], | Phone: | | | | | nal lymph | [place] [address] | [phone] | | | | | nodes (HCC) | Phone: | Fax: | | | | | Procedures | [phone] | [phone] | | | | | ECHO | Fax: | | | | | | Complete | [phone] | | +--------+--------+ + + + + Encounter Details +--------+ + + + + | Date | Type | Department | Care Team | Description | +--------+ + + + + | 10/26/ | Hospital | [facility] | Nikhil, | Diffuse large B-cell | | 2017 | Encounter | [facility] E[facility] [address] | Joaquim Benson MD [address] | lymphoma of | | | | [place] | [address] [place] | intra-abdominal | | | | [place] [address] | [place] [address] | lymph nodes (HCC) | | | | [phone] | [phone] | | | | | | | | | | | | Valentin Oliveros, | | | | | | Technologist | | +--------+ + + + + [...] MG | Take 1 tablet by | | 0 | 09/11/20 | | | tablet | mouth Daily. | | | 16 | 7 | + + + +---------+ [...] [place] | | | | | | [address] | | | | | | | | +--------+---------+ + + + documented as of this encounter Procedures + +--------+ + + + | Procedure Name | Priori | Date/Time | Associated Diagnosis | Comments | | | ty | | | | + +--------+ + + + | ECHO COMPLETE | Routin | 10/26/2016 | Diffuse large | Results for this | | | e | 11:35 AM | B-cell lymphoma of | procedure are in the | | | | PST | intra-abdominal | results section. | | | | | lymph nodes (HCC) | | + +--------+ + + + documented in this encounter Results ECHO Complete (10/26/2016 11:35 AM PST) + +-------+ + + + [...] + + | | + + + +----- ---------+ | Narrative | Perf ormed At | + +----- ---------+ | Transthoracic | | | Echocardiography Report (TTE) Demographics Patient Name DANIEL | | | JOAQUIM Leon Room Number JR. Patient | | | [id number] Date of Study 10/26/2016 Number | | | Visit Number [id number] | | | Referring Physician NIKHIL MARCH Number | | | C Date of | | | 1950 [employer] VALENTIN OLIVEROS, | | | | | | [facility] Age 66 year(s) | | | Interpreting YAMEL DYKSE, | | | Explosive Specialist Gender | | | Male Nurse Procedure Type of Study TTE | | | procedure: ECHO Complete. Procedure dateDate: 10/26/2016Start: 10:31 | | | AM Technical Quality: Adequate visualizationStudy Location: Echo Lab | | | Patient Status: RoutineHeight: 74 inchesWeight: 308.01 poundsBSA: 2.61 | | | m^2BMI: 39.55 kg/m^2Rhythm: Normal Sinus RhythmHR: 64 bpm | | | ConclusionsSummary1. Mild left atrial dilatation.2. Normal left | | | ventricular size with a mild to moderate concentric leftventricular | | | hypertrophy. Left ventricular systolic function is preserved.LVEF is | | | 70%.3. Grade 1 left ventricular diastolic dysfunction.4. Normal | | | valvular structure.5. Mild aortic root dilatation measuring 4.1 cm in | | | diameter.6. Normal right-sided pressure.7. Normal IVC with normal | | | respiratory collapse.8. When compared to echocardiography on 07/24/16, | | | no significant changes. | | | Signature | | | | | | AM | | | -------- FindingsMitral ValveStructurally normal mitral valve without | | | significant stenosis orregurgitation.Aortic ValveAortic valve is | | | trileaflet without significant stenosis or regurgitation.Tricuspid | | | ValveStructurally normal tricuspid valve with trace | | | regurgitation.Pulmonic ValveStructurally normal pulmonic valve with | | | mild to moderate regurgitation.Left AtriumDilated left atrium.Left | | | VentricleMild to moderate concentric left ventricular | | | hypertrophy.Ejection fraction is visually estimated at 70%.Impaired | | | relaxation compatible with diastolic dysfunction (reversed | | | E/Aratio).Right AtriumNormal right atrium.Right VentricleNormal right | | | ventricular structure and function.Pericardial EffusionNo evidence of | | | any pericardial effusion.Pleural EffusionNo evident pleural effusion | | | identified.MiscellaneousMild aortic root dilatation measuring 4.1 cm | | | in diameter.The IVC appears normal. Valves Mitral Valve Tissue | | | Doppler Septal e' Velocity: 12.00 m/s Structures Left Atrium LA A/P | | | Dimension: 5 cm LA | | | Volume: 82 ml LA Vol/BSA Index: 31 mL/m^2 | | | EF [id number]% Left Ventricle Diastolic Dimension: 5.5 cm | | | Systolic Dimension: 3.8 cm Septum Diastolic: 1.6 cm PW | | | Diastolic: 1.4 cm EF Calculated: 73% | | |8. When compared to echocardiography on 07/24/16, no significant changes. | | | | | |Signature | | | | | | Electronically signed by YAMEL DYKES MD(Interpreting physician) on | | | 10/27/2016 07:09 AM | | | | | | | | |Findings | | |Mitral Valve | | |Structurally normal mitral valve without significant stenosis or | | |regurgitation. | | |Aortic Valve | | |Aortic valve is trileaflet without significant stenosis or regurgitation. | | |Tricuspid Valve | | |Structurally normal tricuspid valve with trace regurgitation. | | |Pulmonic Valve | | |Structurally normal pulmonic valve with mild to moderate regurgitation. | | |Left Atrium | | |Dilated left atrium. | | |Left Ventricle | | |Mild to moderate concentric left ventricular hypertrophy. | | |Ejection fraction is visually estimated at 70%. | | |Impaired relaxation compatible with diastolic dysfunction (reversed E/A | | |ratio). | | |Right Atrium | | |Normal right atrium. | | |Right Ventricle | | |Normal right ventricular structure and function. | | |Pericardial Effusion | | |No evidence of any pericardial effusion. | | |Pleural Effusion | | |No evident pleural effusion identified. | | |Miscellaneous | | |Mild aortic root dilatation measuring 4.1 cm in diameter. | | |The IVC appears normal. | | | | | |Valves | | | | | | Mitral Valve | | | | | | Tissue Doppler | | | | | | Septal e' Velocity: 12.00 m/s | | | | | |Structures | | | | | | Left Atrium | | | | | | LA A/P Dimension: 5 cm LA Volume: 82 ml | | | LA Vol/BSA Index: 31 mL/m^2 EF [id number]% | | | | | | Left Ventricle | | | | | | Diastolic Dimension: 5.5 cm Systolic Dimension: 3.8 cm | | | Septum Diastolic: 1.6 cm | | | PW Diastolic: 1.4 cm | | | EF Calculated: 73% | | | | | + +----- ---------+ + + | Procedure Note | + + | Dario, Valeriy Results In - 10/27/2016 7:09 AM [facility] Transthoracic Echocardiography Report | | (TTE) Demographics Patient Name DANIEL Leon Room Number JR. | | Patient [id number] Date of Study 10/26/2016 Number Visit Number | | [id number] Referring Physician NIKHIL MARCH | | Number C Date of 1950 | | [employer] Trainer VALENTIN OLIVEROS, | | [facility] Age 66 year(s) Interpreting YAMEL DYKES, | | Explosive Specialist Gender Male | | NurseProcedureType of Study TTE procedure: ECHO Complete.Procedure dateDate: | | 10/26/2016Start: 10:31 AMTechnical Quality: Adequate visualizationStudy Location: Echo | | LabPatient Status: RoutineHeight: 74 inchesWeight: 308.01 poundsBSA: 2.61 m^2BMI: 39.55 | | kg/m^2Rhythm: Normal Sinus RhythmHR: 64 bpmConclusionsSummary1. Mild left atrial | | dilatation.2. Normal left ventricular size with a mild to moderate concentric | | leftventricular hypertrophy. Left ventricular systolic function is preserved.LVEF is | | 70%.3. Grade 1 left ventricular diastolic dysfunction.4. Normal valvular structure.5. | | Mild aortic root dilatation measuring 4.1 cm in diameter.6. Normal right-sided | | pressure.7. Normal IVC with normal respiratory collapse.8. When compared to | | echocardiography on 07/24/16, no significant | | changes.Signature | | ----- Electronically signed by YAMEL DYKES MD(Interpreting physician) on | | 10/27/2016 07:09 | | AM FindingsMi | | tral ValveStructurally normal mitral valve without significant stenosis | | orregurgitation.Aortic ValveAortic valve is trileaflet without significant stenosis or | | regurgitation.Tricuspid ValveStructurally normal tricuspid valve with trace | | regurgitation.Pulmonic ValveStructurally normal pulmonic valve with mild to moderate | | regurgitation.Left AtriumDilated left atrium.Left VentricleMild to moderate concentric | | left ventricular hypertrophy.Ejection fraction is visually estimated at 70%.Impaired | | relaxation compatible with diastolic dysfunction (reversed E/Aratio).Right AtriumNormal | | right atrium.Right VentricleNormal right ventricular structure and function.Pericardial | | EffusionNo evidence of any pericardial effusion.Pleural EffusionNo evident pleural | | effusion identified.MiscellaneousMild aortic root dilatation measuring 4.1 cm in | | diameter.The IVC appears normal.Valves Mitral Valve Tissue Doppler Septal e' Velocity: | | 12.00 m/sStructures Left Atrium LA A/P Dimension: 5 cm LA | | Volume: 82 ml LA Vol/BSA Index: 31 mL/m^2 EF [id number]% Left | | Ventricle Diastolic Dimension: 5.5 cm Systolic Dimension: 3.8 cm Septum | | Diastolic: 1.6 cm PW Diastolic: 1.4 cm EF Calculated: 73% | | | |Conclusions | |Summary | |1. Mild left atrial dilatation. | |2. Normal left ventricular size with a mild to moderate concentric left | |ventricular hypertrophy. Left ventricular systolic function is preserved. | |LVEF is 70%. | |3. Grade 1 left ventricular diastolic dysfunction. | |4. Normal valvular structure. | |5. Mild aortic root dilatation measuring 4.1 cm in diameter. | |6. Normal right-sided pressure. | |7. Normal IVC with normal respiratory collapse. | |8. When compared to echocardiography on 07/24/16, no significant changes. | | | |Signature | | | | Electronically signed by YAMEL DYKES MD(Interpreting physician) on | | 10/27/2016 07:09 AM | | | | | |Findings | |Mitral Valve | |Structurally normal mitral valve without significant stenosis or | |regurgitation. | |Aortic Valve | |Aortic valve is trileaflet without significant stenosis or regurgitation. | |Tricuspid Valve | |Structurally normal tricuspid valve with trace regurgitation. | |Pulmonic Valve | |Structurally normal pulmonic valve with mild to moderate regurgitation. | |Left Atrium | |Dilated left atrium. | |Left Ventricle | |Mild to moderate concentric left ventricular hypertrophy. | |Ejection fraction is visually estimated at 70%. | |Impaired relaxation compatible with diastolic dysfunction (reversed E/A | |ratio). | |Right Atrium | |Normal right atrium. | |Right Ventricle | |Normal right ventricular structure and function. | |Pericardial Effusion | |No evidence of any pericardial effusion. | |Pleural Effusion | |No evident pleural effusion identified. | |Miscellaneous | |Mild aortic root dilatation measuring 4.1 cm in diameter. | |The IVC appears normal. | | | |Valves | | | | Mitral Valve | | | | Tissue Doppler | | | | Septal e' Velocity: 12.00 m/s | | | |Structures | | | | Left Atrium | | | | LA A/P Dimension: 5 cm LA Volume: 82 ml | | LA Vol/BSA Index: 31 mL/m^2 EF [id number]% | | | | Left Ventricle | | | | Diastolic Dimension: 5.5 cm Systolic Dimension: 3.8 cm | | Septum Diastolic: 1.6 cm | | PW Diastolic: 1.4 cm | | EF Calculated: 73% | + + documented in this encounter Visit Diagnoses + + | Diagnosis | + + | Diffuse large B-cell lymphoma of intra-abdominal lymph nodes (HCC) Other malignant | | lymphomas of intra-abdominal lymph nodes | + + documented in this encounter"
--- OUTSIDE RECORDS SUMMARY | ~2019-09-27 | XMS | Encounter Summary ---
Demographics + + + | Address | [address] | | | [place] [address] | + + + | Home Phone [...] [place] | | | | | [address] | | + + + + + Care Team Providers + +------+ + | Care Filling Machine Set Up Mechanic Name | Role | Phone | [...] + + | 08/03/ | Hospital | [facility] | [facility], | Diffuse large B-cell | | 2016 | Encounter | [facility] | Joaquim Benson MD [address] | lymphoma of | | | | [facility] [address] [place] | intra-abdominal | | | | [address] [place] | [place] [address] | lymph nodes (HCC) | | | | [place] [address] | [phone] | (Primary Dx) | | | | [phone] | | | +--------+ + + + [...] IU orally twice a day. 3) Ginseng: Bhutanese ginseng ([place] ginseng) Panax quinquefolius 2000 mg [...] nt from the original. Hematology/On[facility] Note [facility] Pt. Name/Age/: Joaquim Sanchez 66 y.o. 1950 Med. Record Number: [id number] Date of admission: 08/03/2016 Identifying Statement: Joaquim Sanchez is a 66 y.o. male from [address] [address] with Diffuse Large B-Cell Lymphoma. The patient [...] lower extremity. CT abdomen/Pelvis with contrast 2016 ([facility]). Ex tensive periaortic lymphadenopathy (1.8 cm and 2.1 cm respectively), extensive adenopathy ex tending out along the left common iliac artery and encasing the left external iliac artery ( 4.4 cm) with compromise of the left external iliac vein. 2. Open laparotomy with LEFT ileal retroperitoneal lymph node biopsy ([place], ESTEE) June 242015. Specimen #[id number] ([facility]); Diffuse Large B-Cell lymph raciel, [...] Oncol.: Davida Ma., Brittney Luque., Andie Menezes., Michael Trejo., Michael, TDusty., Dara, [...] this chart may have been created with [employer] voice recognition software. Occasi onal wrong-word or [...] 2019 | Visit | | MD [address] | | | | | | [place] | | | | | | [address] | | | | | | | [...] 152 | 91 - 180 U/L | [facility] | | | | | | [facility] [...] [address] | [place] | [phone] | | [facility] | | [address] | | | - LABORATORY | | [...] 13 | 7 - 18 mg/dL | [facility] | | | | | | [facility] | | | | | | [facility]ICAL | | | | | | C[facility] - | | | | | | LABORATORY | | + + + + + + | Creatinine | 0.97 | 0.60 - 1.30 | [place] | | | | | mg/dL | [facility] | | | | | | MEDICAL | | | | | | CENTER - | | | | | | LABORATORY | | + + + + + + | eGFR if not | >60Comment: GLOMERULAR | >=60 | [place] | | | | FILTRATION | mL/min/1.73m2 | [facility] | | | B[facility]UDIAN | RATE,ESTIMATED | | MEDICAL | | | | mL/min/1.23g2Ntza than | | CENTER - | | [...] | | | Protein | | | [facility] | | | | | [facility] | | | | | | CENTER - | | | | | | LABORATORY | | + + + + + + | AST | 18Comment: This is an | 10 - 42 U/L | [facility] | | | | appended report. These | | [facility] [...] | + + + + + | [facility] | [address] | [place] | [phone] | | [facility] | | [address] | | | - LABORATORY | | [...] immature cells seen on smear review. | [facility] | | | [facility] | | | [facility] | | | - LABORATORY | + + + + + + + + | Performing | Address | City/State/Zipcode | Phone Number | | Organization | | | | + + + + + | [facility] | [address] | [place] | [phone] | | [facility] | | [address] | | | - LABORATORY | | | | + + + + + documented in this encounter Visit Diagnoses + + | Diagnosis | + + | 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
--- OUTSIDE RECORDS SUMMARY | ~2019-09-27 | XMS | Encounter Summary ---
Demographics + + + | Address | [address] | | | [place] [address] | + + + | Home Phone | | + + + | Preferred Language | Unknown | + + + | Marital Status | | + + + | Spiritism Affiliation | 1013 | + + + | Race | Unknown | + + + | Ethnic Group | Unknown | + + + Author + + + | Author | [facility] | | | and [place] | + + + | Organization | [facility] | | | [...] [place] | | | | | [address] | | + + + + + Care Team Providers + +------+ + | Care Superintendent [employer] Name | Role | Phone | + +------+ + | Earle Chacko MD | PCP | | + +------+ + Encounter Details +--------+ + + + + | Date | Type | Department | Care Team | Description | +--------+ + + + + | 04/23/ | Hospital | [facility] | Miguel Zuniga | Diffuse large B-cell | | 2017 | Encounter | [facility] | MD Gerber [address] | lymphoma of | | | | [facility] CLINIC [address] | [address] [place] | intra-abdominal | | | | [address] [place] | [place] [address] | lymph nodes (HCC) | | | | [place] [address] | [phone] | (Primary Dx) | | | | [phone] | | | +--------+ + + + [...] erent from the original. Hem-Onc Progress Note [facility] Pt. Name/Age/: Gerber Galindo Jr. 66 y.o. 1950 Med. Record Number: [id number] Date of admission: 04/23/2017 Assessment and plan: [...] continuing on a program of massage through [facility] and physical the rapy there. He wonders [...] Electronically signed by: Miguel Zuniga, 04/23/2017 9:29 [facility] TIME SPENT 25 MIN. > 50% AT BEDSIDE, WITH FAMILY/PATIENT IN CARE AND STRATEGIC CLIENT EXECUTIVE ON UNIT AND CO ORDINATION OF CARE Portions of this chart may have been created with [employer] voice recognition software. Occasi onal wrong-word or sound-alike substitutions may have occurred due to the inherent valencia itations of voice recognition software. Please read the chart carefully and recognize, using context, where these substitutions have occurred. 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 Denies [...] ROB | | | | | | [phone] | | | | | | | | +--------+---------+ + + + documented as of this encounter Visit Diagnoses + + | Diagnosis | + + | 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
--- OUTSIDE RECORDS SUMMARY | ~2019-09-27 | XMS | Encounter Summary ---
Demographics + + + | Address | [address] | | | [place] [address] | + + + | Home Phone | | + + + | Preferred Language | Unknown | + + + | Marital Status | | + + + | Mandaen Affiliation | 1013 | + + + | Race | Unknown | + + + | Ethnic Group | Unknown | + + + Author + + + | Author | [facility] | | | and [place] | + + + | Organization | [facility] | | | [...] [place] | | | | | [phone] | | + + + + + Care Team Providers + +------+ + | Care Returned Telephone Equipment Appraiser Name | Role | Phone | + [...] | +--------+ + + + + | 07/25/ | Hospital | [facility] | Mohamud, | Diffuse large B-cell | | 2016 | Encounter | [facility] | Joaquim Benson MD [address] | lymphoma of | | | | [facility] [address] | intra-abdominal | | | | [address] | [place] [address] | lymph nodes (HCC) | | | | [place] [address] | [phone] | | | | | [phone] | | | +--------+ + + + [...] + + + | Blood Pressure | 113/70 | 07/25/2016 8:48 AM | | | | | PDT | | + + + + + | Pulse | 59 | 07/25/2016 8:48 AM | | | | | PDT | | + + + + + | Temperature | 36.7 C (98.1 F) | 07/25/2016 8:48 AM | | | | | PDT | | + + + + + | Respiratory Rate | 17 | 07/25/2016 8:48 AM | | | | | PDT | | + + + + + | Oxygen Saturation | 96% | 07/25/2016 8:48 AM | | | | | PDT | | + + + + + | Inhaled Oxygen | - | - | | | Concentration | | | | + + + + + | Weight | 135.2 kg (298 lb 1.6 | 07/25/2016 8:48 AM | | | | oz) | PDT | | + + + + + | Height | - | - | | + + + + + | Body Mass Index | 38.27 | 07/18/2016 4:16 PM | | | | | PDT | | + + + + + documented in this encounter Discharge Instructions Instructions Joaquim Tejeda MD - 07/25/2016Take prednisone 5 pills all at once in t he morning with food; Sun, , Frid, Sat and Sun, then stop Take ondansetron 8 mg twice a day on Sun and to Prevent nausea If you do get sick take a lorazepam and lie down. If you have fever 101 deg F. Call day or night. documented in this encounter Medications at Time [...] Take 5 tablets by | 25 | 0 | 07/26/20 | | | (DELTASONE) 20 mg | mouth Daily for 5 | tablet | | 16 | 6 | | tabletIndications: | days. On Days | | | | | | Diffuse large B-cell | 2,3,4,5, 6 of each | | | | | | lymphoma of | 21 day cycle. | | | | | | intra-abdominal [...] encounter Progress Notes Joaquim Tejeda MD - 07/25/2016 8:51 AM PDTFormatting of this note might be differe nt from the original. Hematology/Oncology Progress Note [facility] [place] Pt. Name/Age/: Joaquim Galindo 66 y.o. 1950 Med. Record Number: [id number] Date of admission: 07/25/2016 Identifying Statement: Joaquim Galindo is a 66 y.o. male from [address] [address] with Diffuse Large B-Cell Lymphoma. The patient [...] irregularity. Left lower extremity venous doppler 2016 ([facility] ) No DVT left lower extremity. CT abdomen/Pelvis with contrast 2016 ([facility]). Ex tensive periaortic lymphadenopathy (1.8 cm and 2.1 cm respectively), extensive adenopathy ex tending out along the left common iliac artery and encasing the left external iliac artery ( 4.4 cm) with compromise of the left external iliac vein. 2. Open laparotomy with LEFT ileal retroperitoneal lymph node biopsy ([facility], [facility]) June 242015. Specimen #[id number] ([facility]); Diffuse Large B-Cell lymph [...] 25, 2016. Current Assessment & Plan Joaquim WOODY" returned to clinic on 07/25/2016 with his Mara to begin systemic multiagent chemoimmunotherapy for diffuse large cell B-cell Lymphoma. Interval history is notable for the fact that Rios could not tolerate lying on the PET/CT scanner, so his study was incomplete, but data that was acquired indicated that there was ma lignant LEFT supraclavicular lymphadenopathy. Pretreatment cardiac echocardiogram indicated a normal ejection fraction of 70%. Rios declined a pretreatment bone marrow biopsy in favor of proceeding immediately with treatment to palliate left lower extremity edema. Extended office encounter with Rios and Mara discussing the risks and benefits of sys awilda multiagent chemoimmunotherapy with [facility] for diffuse large B-Cell lymphoma, including the use of allopurinol to prevent tumor lysis syndrome, prophylactic use of ondansetron to p revent chemotherapy induced nausea and vomiting, use of lorazepam for rescue treatment of ch emotherapy induced nausea and vomiting, and the instruction to call the [facility] for any fever of 101 deg F or higher. He will receive Day #2 Neulasta at [facility] in [place], [place] Review of Systems: REVIEW OF SYSTEMS Constitutional: Reports energy level continues to be decreased for about 2 to 3 months. Rep orts occasional night sweats. Denies fatigue. Denies high fevers, shaking chills, anorexia, nausea, vomiting or weight loss. Appetite without changes. Ear, Nose, Mouth, Throat: Denies odynophagia, dysphagia, or tinnitus. Cardiovascular: Denies shortness of breath, dyspnea on exertion, chest pain, palpitations o r orthopnea. Respiratory: Denies cough, hemoptysis, or sputum production. Gastrointestinal: Reports constipation recently. Denies abdominal pain, diarrhea, melena, o r bright red blood per rectum. Genitourinary: Reports getting up at night to urinate 4 to 5 times a night. Denies hematuri a or dysuria. Musculoskeletal: Reports back pain for years. Denies joint pain or tenderness. Neurologic: Denies headache, visual changes, or numbness/tingling of the extremities. Endocrine: Reports edema in lower left leg. Denies heat/cold intolerance. Hematologic: Denies spontaneous bruising or bleeding. Integumentary: Reports some "bumps" on both sides of neck for about a week. Pain: Reports back, left leg, and groin pain today that he rates 5/10. ROS: otherwise normal Note: Patient here for Follow up with Dr. Tejeda, labs and first 6 hour treatment. My chart: Active Review of [...] if needed for nausea 30 tablet 3 [START ON 07/26/2016] predniSONE (DELTASONE) 20 mg tablet Take 5 tablets by mouth Daily for 5 days. On Days 2,3,4,5, 6 of each 21 day cycle. 25 tablet 0 XARELTO 10 MG tablet 0 No current facility-administered medications for this encounter. Facility-Administered Medications Ordered in Other Encounters Medication Dose Route Frequency Provider Last Rate Last Dose diphenhydrAMINE (BENADRYL) injection 25 mg 25 mg Intravenous Q15 Min PRN Joaquim taylor MD LORazepam (ATIVAN) injection 1 mg 1 mg Intravenous Q4H PRN Joaquim Tejeda MD meperidine (DEMEROL) 25 mg/mL injection 25 mg 25 mg Intravenous Q2H PRN Joaquim menchaca MD methylPREDNISolone sodium succinate (solu-MEDROL) 62.5 mg/mL injection 125 mg 125 mg I ntravenous Once PRN Joaquim Tejeda MD Allergies: Allergy: Allergies Allergen [...] lymphoma of intra-abdominal lymph nodes Objectives: Temp: 36.7 C (98.1 F) BP: 113/70 mmHg Pulse: 59 Resp: 17 SpO2: 96 % on Min/Max Temp past 24 hours:Temp Av.7 C (98.1 F) Min: 36.7 C (98.1 F) Max: 3 6.7 C (98.1 F) No intake or output data in the 24 hours ending 07/25/16 1943 Wt. Admission: Weight: 135.217 kg (298 lb 1.6 oz) Wt. Current: Weight: 135.217 kg (298 lb 1.6 oz) Wt Readings from Last 3 Encounters: 07/25/16 135.217 kg (298 lb 1.6 oz) [...] for DANIEL JOAQUIM ( ) as of 07/25/2016 19:44 Ref. Range 07/25/2016 08:08 WBC Latest Ref Range: 4.0-11.0 K/uL 2.8 (L) RBC: Latest Ref Range: 4.30-5.70 M/uL 4.06 (L) Hgb Latest Ref Range: 13.5-18.0 g/dL 12.0 (L) Hct, Final Latest Ref Range: 40.0-51.0 % 34.6 (L) MCV Latest Ref Range: 83.0-101.0 fL 85.3 MCH Latest Ref Range: 28.0-35.0 pg 29.6 MCHC Latest Ref Range: 32.0-36.0 g/dL 34.7 RDW-CV Latest Ref Range: <15.0 % 16.3 (H) Platelet Count Latest Ref Range: 140-440 K/uL 163 MPV Latest Units: fL 8.3 Absolute Neutrophils Latest Ref Range: 1.80-8.50 K/uL 1.50 (L) Absolute Lymphocytes Latest Ref Range: 0.60-3.20 K/uL 0.90 Absolute Monocytes Latest Ref Range: 0.00-1.00 K/uL 0.20 Absolute Eosinophils Latest Ref Range: 0.00-0.40 K/uL 0.10 Absolute Basophils Latest Ref Range: 0.00-0.10 K/uL 0.00 % Neutrophils Latest Ref Range: 45.0-82.0 % 55.0 % Lymphocytes Latest Ref Range: 20.0-45.0 % 33.6 % Monocytes Latest Ref Range: 4.0-12.0 % 7.1 % Eosinophils Latest Ref Range: 0.0-5.0 % 3.7 % Basophils Latest Ref Range: 0.0-1.0 % 0.6 NA Latest Ref Range: 136-149 mmol/L 140 K Latest Ref Range: 3.5-5.1 mmol/L 4.0 Chloride Latest Ref Range: 98-109 mmol/L 105 Carbon dioxide Latest Ref Range: 24-31 mmol/L 28 ANION GAP Latest Ref Range: 3-16 mmol/L 7 GLUCOSE Latest Ref Range: 70-109 mg/dL 107 BUN Latest Ref Range: 7-18 mg/dL 18 BUN/CREA Unknown 17.5 Creatinine Latest Ref Range: 0.60-1.30 mg/dL 1.03 ALBUMIN Latest Ref Range: 3.2-5.0 g/dL 3.8 Albumin/Globulin ratio Latest Ref Range: 0.8-2.0 1.5 Total protein Latest Ref Range: 6.0-7.8 g/dL 6.4 EGFR IF NOT Latest Ref Range: >=60 mL/min/1.73m2 >60 Calcium Latest Ref Range: 8.3-10.5 mg/dL 10.2 URIC ACID Latest Ref Range: 2.6-7.2 mg/dL 6.3 ALK PHOS Latest Ref Range: 40-110 U/L 58 ALT (SGPT) (REF) Latest Ref Range: 6-45 U/L 27 AST (SGOT) (REF) Latest Ref Range: 10-42 U/L 26 LDH TOTAL Latest Ref Range: 91-180 U/L 223 (H) BILIRUBIN TOTAL Latest Ref Range: 0.1-1.5 mg/dL 0.8 GLOBULIN Latest Ref Range: 2.1-3.8 g/dL 2.6 Pharmacovigilance: Clinical Oncology Pharmacy Services Progress Note [facility] Pt. Name/Age/: Joaquim Galindo 66 y.o. 1950 CSN: [id number] Date of service: 07/21/2016 Provider: Olga Pepe, GEMINID Identifying Statement: Joaquim Galindo is a 66 y.o. 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 The patient chart and medications were reviewed in detail and the patient was seen and exam ined. Patient was referred to Clinical Oncology Pharmacist for chemotherapy education/coordinatio n, by Dr. Tejeda. Assessment and plan: Patient seen today for [...] feel worse since his consult with Dr Tejeda. Side ef fects discussed include: neutropenia, anemia, constipation, peripheral neuropathies, cardiac toxicities, nausea/vomiting, fatigue, infusion reactions, and hair loss. Spent several doreen blank discussing pain management, with patient unable to tolerate opioids due to difficulty sl eeping and constipation. 1. Return to clinic on Sunday07/25/16 to be assessed by Dr Tejeda. If deemed appropri ate, will start cycle [...] at time of exam. We spent several minut es discussing his diagnosis and the need to start R-CHOP regardless of PET results, but with out those results would be looking at longer duration of treatment. We also went over risk o f extravasation and the vesicant nature of doxorubicin. He is not ready or willing to be adm itted to start chemotherapy today. Dr Tejeda alerted to all of this, and is [...] 20 mg by mouth every morning (before break fast). XARELTO 10 MG tablet No current facility-administered medications for this encounter. Allergies: Allergies Allergen Reactions Codeine "wires him up" Vitals: on Temp :No Data Recorded No intake or output data in the 24 hours ending 07/21/16 1349 Wt. Current: Diagnostic studies: Available data and images were reviewed personally. See reports. Significant results an d findings are addressed here or in the [...] for comparison only - no result from [place]. Vas Lower Extremity Venous Left 07/17/2016 External films for comparison only - no result from [place]. Xr Chest 2 Vw 07/17/2016 External films for comparison only - no result from [place]. Imaging Report - External Scan 07/21/2016 Ordered by an unspecified provider. Imaging Report - External Scan 07/04/2016 Ordered by an unspecified provider. Imaging Report - External Scan 2016 Ordered by an unspecified provider. Imaging Report - External Scan 2016 Ordered by an unspecified provider. Electronically signed by: Olga Pepe, GABINO 07/21/2016 13:49 Total time in face to face discussion with the patient and family was 90 minutes; more than 50% of the time was spent counseling about cytotoxic chemotherapy and side effect managemen t. Palliative Care: Patient's Medications New Prescriptions LORAZEPAM (ATIVAN) 1 MG TABLET Take 1 tablet by mouth every 6 hours as needed (Nausea/V omiting). ONDANSETRON (ZOFRAN) 8 MG TABLET Take 1 tablet by mouth 2 times daily. For two days aft er each chemo and then may take one tab every 8 hours if needed for nausea PREDNISONE (DELTASONE) 20 MG TABLET Take 5 tablets by mouth Daily for 5 days. On Days 2 ,3,4,5, 6 of each 21 day cycle. Modified Medications No medications on file Discontinued Medications No medications on file Procedure: Day 1, Cycle 1 (21-day cycle) Completed; Released on 07/25/2016; Originally planned for 07/25/2016 Take-Home Medications LORazepam (ATIVAN) 1 mg tablet Take 1 tablet by mouth every 6 hours as needed (Nausea/Vomiting). Disp-20 tablet, R-5, Print OrderHistory predniSONE (DELTASONE) 20 mg tablet Take 5 tablets by mouth Daily for 5 days. On Days 2,3,4,5, 6 of each 21 day cycle. Disp-25 tablet, R-0, Normal OrderHistory ondansetron (ZOFRAN) 8 MG tablet Take 1 tablet by mouth 2 times daily. For two days after each chemo and then may take o ne tab every 8 hours if needed for nausea Disp-30 tablet, R-3, Normal OrderHistory Other Chemotherapy Pre-Authorization (Not Released) Order Details OrderHistory Labs Hepatitis B Surface Ag STAT, ONE TIME, Sun07/25/16 at 0809, For 1 occurrence OrderHistory Hepatitis B Surface Ab STAT, ONE TIME, Sun07/25/16 at 0809, For 1 occurrence OrderHistory Hepatitis B Core Ab, Total STAT, ONE TIME, Sun07/25/16 at 0809, For 1 occurrence OrderHistory Lactate Dehydrogenase STAT, ONE TIME, Sun07/25/16 at 0809, For 1 occurrence OrderHistory Uric Acid STAT, ONE TIME, Sun07/25/16 at 0809, For 1 occurrence OrderHistory Beta 2 Microglobulin STAT, ONE TIME, Sun07/25/16 at 08, For 1 occurrence OrderHistory Comprehensive Metabolic Panel STAT, ONE TIME, Sun07/25/16 at 08, For 1 occurrence OrderHistory CBC with Differential STAT, ONE TIME, Sun07/25/16 at 08, For 1 occurrence OrderHistory Nursing Orders OK to proceed with chemotherapy (Not Released) 07/25/16 Does not need both dexamethasone, and solumedrol today. Leukopenia is noted and is likely related to bone marrow infiltration with cancer, please p roceed as prescribed. INFORMED CONSENT: The nature and character of the proposed treatment with Cycle#1 RCHOP and the anticipated results of the proposed treatment with Cycle#1 RCHOP;recognized alternative forms of treatment, including non-treatment; the risks benefits, and side effects of propos ed treatment, alternative treatments and non-treatment were discussed with the patient who c onsents to proceed with treatment with Cycle#1 RCHOP. The treating provider has examined the patient and reviewed the diagnostic data, including laboratory data, and deems that it is s afe and appropriate to proceed with treatment with Cycle#1 RCHOP.JOAQUIM TEJEDA MD. OrderHistory Plans for discharge (Not Released) MAKE SURE HE STARTS ON THE PREDNISONE 07/19- July 25 2016 QFU labs RCHOP #1 with adriamycin give peripheral iv under constan t nursing supervision. port will be placed 08/11- 1 week before cycle 2. arrange marco in [place] with Dora for day 2- fax her orders. QFU CBC,CMP,LDH ARM DRAW IN 10 DAYS FOR AGUSTIN CHECK Q FU CBC,CMP,LDH * PORT DRAW AND 6 HOUR RX OrderHistory Pre-Medications ondansetron (ZOFRAN) 8 mg in sodium chloride 0.9% 50 mL IVPB 8 mg, Intravenous, for 15 Minutes, ONCE, Sun07/25/16 at 0945, For 1 dose OrderHisto ry acetaminophen (TYLENOL) tablet 650 mg 650 mg, Oral, ONCE, Sun07/25/16 at 0945, For 1 dose Give 30 minutes prior to riTUXimab. OrderHistory diphenhydrAMINE (BENADRYL) injection 25 mg 25 mg, Intravenous, ONCE, Sun07/25/16 at 0945, For 1 dose OrderHistory methylPREDNISolone sodium succinate (solu-MEDROL) 62.5 mg/mL injection 125 mg 125 mg, Intravenous, ONCE, Sun07/25/16 at 0945, For 1 dose Mix with 2 mL provided diluent to make 62.5 mg/mL. OrderHistory fosaprepitant (EMEND) 150 mg in sodium chloride 0.9% 150 mL IVPB 150 mg, Intravenous, for 20 Minutes, ONCE, Sun07/25/16 at 1000, For 1 dose Do not shake bag. Administer prior to chemotherapy. OrderHistory CHEMOTHERAPY vinCRIStine (ONCOVIN) 2 mg in sodium chloride 0.9% 25 mL chemo infusion 2 mg (original dose 1.4 mg/m2), Intravenous, for 10 Minutes, ONCE, Sun07/25/16 at 1015, For 1 dose Chemotherapy: Use appropriate handling precautions. Vesicant. For IV use only. Fatal if giv en by other routes. OrderHistory DOXOrubicin (ADRIAMYCIN) chemo injection 133 mg 133 mg (50 mg/m2 2.66 m2 Treatment plan actual BSA), Intravenous, for 10 Minutes, ON CE, Sun07/25/16 at 1030, For 1 dose Please draw dose up into two syringes of 33.25 mL each to equal total volume 66.5 mL (133 m g) Chemotherapy: Use appropriate handling precautions. Vesicant. Protect from light. OrderHistory riTUXimab (RITUXAN) 1,000 mg in sodium chloride 0.9% 1,000 mL infusion 1,000 mg (rounded from 997.5 mg = 375 mg/m2 2.66 m2 Treatment plan actual BSA), Intr avenous, ONCE, Sun07/25/16 at 1045, For 1 dose Initial infusion: Start at [...] infusion at 50% of previous rate. OrderHistory cyclophosphamide (CYTOXAN) 2,000 mg in sodium chloride 0.9% 250 mL chemo infusion 2,000 mg (rounded from 1,995 mg = 750 mg/m2 2.66 m2 Treatment plan actual BSA), Intr avenous, for 60 Minutes, ONCE, Sun07/25/16 at 1600, For 1 dose Chemotherapy: Use appropriate handling precautions. OrderHistory PRN Medications LORazepam (ATIVAN) injection 1 mg (Not Given) 1 mg, Intravenous, EVERY 4 HOURS PRN, Anxiety, Starting Sun07/25/16 at 0926 Dali dowling Infusion Reaction Orders Monitor patient Monitor patient during riTUXimab infusion for fever, chills, rigors, bronchospasm, darion na, edema, hypotension, nausea. OrderHistory meperidine (DEMEROL) 25 mg/mL injection 25 mg (Not Given) 25 mg, Intravenous, EVERY 2 HOURS PRN, severe chills/rigors with riTUXimab, Starting 07/25/16 at 0926, For 24 hours OrderHistory Stop infusion if: Stop infusion if an infusion reaction is suspected (pruritis, flushing, rhinitis, fever , rash, back pain, dyspnea). Notify MD. OrderHistory Check vital signs Check vital signs q5 minutes until back to baseline, then q15 minutes until resolution of symptoms. OrderHistory Start oxygen Start oxygen at 6-8 LPM for O2 <= 90%. OrderHistory diphenhydrAMINE (BENADRYL) injection 25 mg (Not Given) 25 mg, Intravenous, EVERY 15 MIN PRN, Infusion reaction, Starting Sun07/25/16 at 0926, For 2 doses Administer as needed for infusion reaction. OrderHistory methylPREDNISolone sodium succinate (solu-MEDROL) 62.5 mg/mL injection 125 mg (Not Gi alanis) 125 mg, Intravenous, ONCE PRN, infusion reaction, Starting Sun07/25/16 at 0926, For 1 d ose Administer as needed for infusion reaction. Choose only one steroid. Mix with 2 mL provided diluent to make 62.5 mg/mL. OrderHistory dexamethasone (DECADRON) 20 mg in sodium chloride 0.9% 50 mL IVPB (Not Released) 20 mg, Intravenous, for 15 Minutes, ONCE PRN, infusion reaction, Starting when released , for 1 dose Administer as needed for infusion reaction. Choose only one steroid. OrderHistory Resume infusion if: Resume infusion when symptoms resolve, as directed by . OrderHistory Nursing Orders Anaphylaxis orders (Not Released) Add order group [facility] ANAPHYLAXIS TREATMENT if a severe hypersensitivity reaction or anap hylaxis is suspected (bronchospasm, stridor, wheezing, respiratory depression, cardiac arrhy thmia, generalized urticaria, SBP <= 80 mm Hg or 30 mm Hg drop from baseline, angioedema, sh ock, loss of consciousness). Stop infusion, activate mikayla zamora and notify . OrderHisto ry JOAQUIM TEJEDA MD Portions of this chart may have been created with [employer] recognition software. Occasi onal wrong-word or sound-alike [...] | | | | | [address], [place] | | | | | | [id number] | | | | | | | | +--------+---------+ + + + documented as of this encounter Procedures + +--------+ + + + | Procedure Name | Priori | Date/Time | Associated Diagnosis | Comments | | | ty | | | | + +--------+ + + + | BETA 2 MICROGLOBULIN | STAT | 07/25/2016 | Diffuse large | Results for this | | | | 8:08 AM | B-cell lymphoma of | procedure are in the | | | | PDT | intra-abdominal | results section. | | | | | lymph nodes (HCC) | | + +--------+ + + + | HEPATITIS B CORE AB, | STAT | 07/25/2016 | Diffuse large | Results for this | | TOTAL | | 8:08 AM | B-cell lymphoma of | procedure are in the | | | | PDT | intra-abdominal | results section. | | | | | lymph nodes (HCC) | | + +--------+ + + + | HEPATITIS B SURFACE | STAT | 07/25/2016 | Diffuse large | Results for this | | AB | | 8:08 AM | B-cell lymphoma of | procedure are in the | | | | PDT | intra-abdominal | results section. | | | | | lymph nodes (HCC) | | + +--------+ + + + | HEPATITIS B SURFACE | STAT | 07/25/2016 | Diffuse large | Results for this | | AG | | 8:08 AM | B-cell lymphoma of | procedure are in the | | | | PDT | intra-abdominal | results section. | | | | | lymph nodes (HCC) | | + +--------+ + + + | CBC WITH | STAT | 07/25/2016 | Diffuse large | Results for this | | DIFFERENTIAL | | 8:08 AM | B-cell lymphoma of | procedure are in the | | | | PDT | intra-abdominal | results section. | | | | | lymph nodes (HCC) | | + +--------+ + + + | URIC ACID | STAT | 07/25/2016 | Diffuse large | Results for this | | | | 8:08 AM | B-cell lymphoma of | procedure are in the | | | | PDT | intra-abdominal | results section. | | | | | lymph nodes (HCC) | | + +--------+ + + + | LACTATE | STAT | 07/25/2016 | Diffuse large | Results for this | | DEHYDROGENASE | | 8:08 AM | B-cell lymphoma of | procedure are in the | | | | PDT | intra-abdominal | results section. | | | | | lymph nodes (HCC) | | + +--------+ + + + | COMPREHENSIVE | STAT | 07/25/2016 | Diffuse large | Results for this | | METABOLIC PANEL | | 8:08 AM | B-cell lymphoma of | procedure are in the | | | | PDT | intra-abdominal | results section. | | | | | lymph nodes (HCC) | | + +--------+ + + + documented in this encounter Results Beta 2 Microglobulin (07/25/2016 8:08 AM PDT) + + + + + + | Component | Value | Ref Range | Performed | Pathologist | | | | | At | Signature | + + + + + + | BETA 2 | 2091.0 (H)Comment: | 1010 - 1730 | REFERENCE | | | MICROGLOBUL | Testing Performed: [facility], | ug/L | [facility] | | | [place] | [address], | | | | | | [place] [address] | | | | + + + + + + + + | Specimen | + + | Blood specimen | | (specimen) | + + + + + + + | Performing | Address | City/State/Zipcode | Phone Number | | Organization | | | | + + + + + | [facility] | [address] | [place] [address] | [phone] | + + + + + CBC with Differential (07/25/2016 8:08 AM PDT) + + + + + + | Component | Value | Ref Range | Performed | Pathologist | | | | | At | Signature | + + + + + + | WBC | 2.8 (L) | 4.0 - 11.0 K/uL | [facility] | | | | | | [facility] | | | | | | [facility] | | | | | | [facility] - | | | | | | LABORATORY | | + + + + + + | RBC | 4.06 (L) | 4.30 - 5.70 | [facility] | | | | | M/uL | [facility] | | | | | | [facility] | | | | | | [facility] - | | | | | | LABORATORY | | + + + + + + | Hemoglobin | 12.0 (L) | 13.5 - 18.0 | [facility] | | | | | g/dL | [facility] | | | | | | [facility] | | | | | | [facility] - | | | | | | LABORATORY | | + + + + + + | Hematocrit | 34.6 (L) | 40.0 - 51.0 % | [facility] | | | | | | [facility] | | | | | | [facility] | | | | | | [facility] - | | | | | | LABORATORY | | + + + + + + | MCV | 85.3 | 83.0 - 101.0 fL | [facility] [...] + + + + | MCHC | 34.7 | 32.0 - 36.0 | [facility] | | | | | g/dL | [facility] | | | | | | [facility] | | | | | | [facility] - | | | | | | LABORATORY | | + + + + + + | RDW-CV | 16.3 (H) | <15.0 % | [facility] | | | | | | [facility] | | [facility] | | | | | | [facility] - | | | | | | LABORATORY | | + + + + + + | Platelet | 163 | 140 - 440 K/uL | [facility] | | | Count | | | [facility] | | | | | | [facility] | | | | | | [facility] - | | | | | | LABORATORY | | + + + + + + | MPV | 8.3 | fL | [facility] | | | | | | [facility] | | | | | [facility] | | | | | | [facility] - | | | | | | LABORATORY | | + + + + + + | % | 55.0 | 45.0 - 82.0 % | [facility] | | | Neutrophils | | | [facility] | [facility] | [facility] | | | [facility] | [facility] - | | | | | | LABORATORY | | + + + + + + | % | 33.6 | 20.0 - 45.0 % | [facility] | | | Lymphocytes | | | [facility] | | | [facility] | | [facility] | | | | | | CENTER - | | | | | | LABORATORY | | + + + + + + | % Monocytes | 7.1 | 4.0 - 12.0 % | [facility] | | | | | | [facility] | | | [facility] | [facility] | | | | | | [facility] - | | | | | | LABORATORY | | + + + + + + | % | 3.7 | 0.0 - 5.0 % | [facility] [...] + + + + | Absolute | 1.50 (L) | 1.80 - 8.50 | [facility] | | | Neutrophils | | K/uL | [facility] | | | | | | [facility] | | | | | | CENTER - | | | | | | LABORATORY | | + + + + + + | Absolute | 0.90 | 0.60 - 3.20 | [facility] | [...] | + + + + + | [facility] | [address] | [place] | [phone] | | [facility] | | [address] | | | - LABORATORY | | | | + + + + + Comprehensive Metabolic Panel (07/25/2016 8:08 AM PDT) + + + + + [...] + + + + | CO2 | 28 | 24 - 31 mmol/L | [facility] | | | | | | [facility] | [facility] | [facility] | | | | | | C[facility] - | | | | | | LABORATORY | | + + + + + + | Anion Gap | 7 | 3 - 16 mmol/L | [facility] [...] + + + + | BUN | 18 | 7 - 18 mg/dL | [facility] | | | | | | [facility] | | [facility] | [facility] | | | | | | CENTER - | | | | | | LABORATORY | | + + + + + + | Creatinine | 1.03 | 0.60 - 1.30 | [facility] | [...] mL/min/1.73m2 | [facility] | | | [place] | RATE,ESTIMATED | | MEDICAL | | | | mL/min/1.85k7Urgi than | | CENTER - | | [...] + + + + | Calcium | 10.2 | 8.3 - 10.5 | [facility] | | | | | mg/dL | [facility] | | | | | | [facility]ICAL | | | | | | CENTER - | | | | | | LABORATORY | | + + + + + + | Albumin | 3.8 | 3.2 - 5.0 g/dL | [facility] [...] + + + + | Total | 6.4 | 6.0 - 7.8 g/dL | [facility] | | | Protein | | | [facility] | | | | | | [facility] | | | | | | CENTER - | | | | | | LABORATORY | | + + + + + + | AST | 26Comment: This is an | 10 - 42 [...] + + + + | ALT | 27Comment: This is an | 6 - 45 [...] + + + + | Alkaline | 58Comment: This is an | 40 - 110 [...] + + + + | Globulin | 2.6 | 2.1 - 3.8 g/dL | [facility] [...] + + + + | BUN/Creatin | 17.5 | | [facility] | | | ine [...] + | [facility] | [address] | [place] | [phone] | | [facility] | | [address] | | | - LABORATORY | | | | + + + + + Uric Acid (07/25/2016 8:08 AM PDT) + +-------+ + + + | Component | Value | Ref Range | Performed | Pathologist | | | | | At | Signature | + +-------+ + + + | Uric Acid | 6.3 | 2.6 - 7.2 mg/dL | [facility] [address] | [place] | [phone] | | [facility] | | [address] | | | - LABORATORY | | | | + + + + + Lactate Dehydrogenase (07/25/2016 8:08 AM PDT) + +---------+ + + + | Component | Value | Ref Range | Performed | Pathologist | | | | | At | Signature | + +---------+ + + + | LDH TOTAL | 223 (H) | 91 - 180 U/L | [facility] | | | | | | [facility] | | | | | [facility]ICAL | | | | | | CENTER - | | | | | | LABORATORY | | + +---------+ + + + + + | Specimen | + + | Blood | + + + + + + + | Performing | Address | City/State/Zipcode | Phone Number | | Organization | | | | + + + + + | [facility] | [address] | [place] | [phone] | | [facility] | | [address] | | | - LABORATORY | | | | + + + + + Hepatitis B Core Ab, Total (07/25/2016 8:08 AM PDT) + + + + + + | Component | Value | Ref Range | Performed | Pathologist | | | | | At | Signature | + + + + + + | Hepatitis B | Non ReactiveComment: | NR | [facility] | | | Core Ab | Testing Performed: [facility], | | [facility] | | | Total | [address], | | | | | | [place] [address] | | | | + + + [...] [address] | [place] [address] | [phone] | + + + + + Hepatitis B Surface Ab (07/25/2016 8:08 AM PDT) + + + + + + | Component | Value | Ref Range | Performed | Pathologist | | | | | At | Signature | + + + + + + | Hepatitis B | <3.1Comment: <10.0 | mIU/mL | [facility] | | | Surface Ab | Non | | [facility] | | | | ImmuneTesting Performed: | | | | | | [facility], [address], | | | | | | [place] [address] | | | | + + + [...] [address] | [place] [address] | [phone] | + + + + + Hepatitis B Surface Ag (07/25/2016 8:08 AM PDT) + + + + + + | Component | Value | Ref Range | Performed | Pathologist | | | | | At | Signature | + + + + + + | Hepatitis B | Non ReactiveComment: | NR | [facility] | | | Surface Ag | Testing Performed: [facility], | | [facility] | | | | [address], | | | | | | [place] [address] | | | | + + + + + + + + | Specimen | + + | Blood specimen | | (specimen) | + + + + + + + | Performing | Address | City/State/Zipcode | Phone Number | | Organization | | | | + + + + + | [facility] | [address] | [place] [address] | [phone] | + + + + + documented in this encounter Visit Diagnoses + + | Diagnosis | + + | Diffuse large B-cell lymphoma of intra-abdominal lymph nodes (HCC) Other malignant | | lymphomas of intra-abdominal lymph nodes | + + documented in this encounter
--- OUTSIDE RECORDS SUMMARY | ~2019-09-27 | XMS | Encounter Summary ---
Demographics + + + | Address | [address] | | | [place] [address] | + + + | Home Phone | | + + + | Preferred Language | Unknown | + + + | Marital Status | | + + + | Synagogue Affiliation | 1013 | + + + | Race | Unknown | + + + | Ethnic Group | Unknown | + + + Author + + + | Author | [facility] | | | and [place] | + + + | Organization | [facility] | | [...] [place] | | | | | [address] | | + + + + + Care Team Providers + +------+ + | Care Outreach Educator Name | Role | Phone | + [...] | | [facility] | | | [facility] [address] | | | | | | [address] | | | | | | [place] [address] | | | | | | [phone] | | | +--------+ + + + [...] [place] | | | | | | [address] | | | | | | | | +--------+---------+ + + + documented as of this encounter Visit Diagnoses Not on filedocumented in this encounter"
--- OUTSIDE RECORDS SUMMARY | ~2019-09-27 | XMS | Encounter Summary ---
Demographics + + + | Address | [address] | | | [place] [address] | + + + | Home Phone [...] [place] | | | | | [address] | | + + + + + Care Team Providers + +------+ + | Care Child Life Specialist Name | Role | Phone | [...] large b-cell | Gerber Benson, | [address] [place] | | | | | lymphoma, | MD [address] | [place], | | | | | intra-abdomi | [address] | [place] [address] | | | | | nal lymph | [place], | Phone: | | | | | nodes (HCC) | [place] [address] | [phone] | | | | | Procedures | Phone: | Fax: | | | | | [place] | [phone] | [phone] | | | | | INJECTION, | Fax: | | | | | | FAMOTIDINE, | [phone] | | | | | | 20 MG GA | | | | | | | RITUXIMAB | | | | | | | INJECTION, | | | | | | | 100 MG GA | | | | | | | LORAZEPAM | | | | | | | INJECTION, 2 | | | | | | | MG GA | | | | | | | MEPERIDINE | | | | | | | HYDROCHL | | | | | | | /100 MG GA | | | | | | | DIPHENHYDRAM | | | | | | | INE HCL | | | | | | | INJECTIO, 50 | | | | | | | MG GA | | | | | | | METHYLPREDNI | | | | | | | SOLONE | | | | | | | INJECTION, | | | | | | | 125 MG GA | | | | | | | DEXAMETHASON | | | | | | | E SODIUM | | | | | | | PHOS, 1 MG | | | | | | | GA NORMAL | | | | | | | SALINE | | | | | | | SOLUTION | | | | | | | INFUS, 500 | | | | | | | ML GA | | | | | | | NORMAL | | | | | | | SALINE | | | | | | | SOLUTION | | | | | | | INFUS, 250 | | | | | | | ML GA | | | | | | | STERILE | | | | | | | WATER/SALINE | | | | | | | , 10 ML GA | | | | | | | CHEMOTHER, | | | | | | | IV PUSH,EA | | | | | | | ADD DRUG GA | | | | | | | CHEMOTHER, | | | | | | | IV INFUSION, | | | | | | | 1 HR GA | | | | | | | CHEMOTHER, | | | | | | | IV INFUSION, | | | | | | | EA HR GA | | | | | | | CHEMOTHER,NO | | | | | | | N-HORMONE | | | | | | | ANTI-NEOPL, | | | | | | | SUB-Q/IM GA | | | | | | | [...] + + + + | 10/09/ | Hospital [facility] | [place], | 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 [address] | lymphoma of | | | | INFUSION [address] [place] | intra-abdominal | | | | [place], | [place] [address] | lymph nodes (HCC); | | | | [place] [address] | [phone] | Lymphedema of left | | | | [phone] | | lower extremity | +--------+ + [...] | | | | | | [place] | | | | | | [address] | | | | | | | | +--------+---------+ + + + documented as of this encounter Procedures + +--------+ + + + | Procedure Name | Priori | Date/Time | Associated Diagnosis | Comments | | | ty | | | | + +--------+ + + + | CBC WITH | STAT | 10/09/2017 | Diffuse large | Results for this | | DIFFERENTIAL | | 9:03 AM | B-cell lymphoma of | procedure are in the | | | | PST | intra-abdominal | results section. | | | | | lymph nodes (HCC) | | + +--------+ + + + | LACTATE | STAT | 10/09/2017 | Diffuse large | Results for this | | DEHYDROGENASE | | 9:03 AM | B-cell lymphoma of | procedure are in the | | | | PST | intra-abdominal | results section. | | | | | lymph nodes (HCC) | | + +--------+ + + + | COMPREHENSIVE | STAT | 10/09/2017 | Diffuse large | Results for this | | METABOLIC PANEL | | 9:03 AM | B-cell lymphoma of | procedure are in the | | | | PST | intra-abdominal | results section. | | | | | lymph nodes (HCC) | | + +--------+ + + + documented in this encounter Results CBC with Differential (10/09/2017 9:03 AM PST) + + + + + [...] | | | | | M/uL | [facility] | | | | | | MEDICAL | | | | | | CENTER - | | | | | | LABORATORY | | + + + + + + | Hemoglobin | 12.8 (L) | 13.5 - 18.0 | [facility] | | | | | g/dL | [facility] | | | | | | MEDICAL | | | | | | CENTER - | | | | | | LABORATORY | | + + + + + + | Hematocrit | 36.8 (L) | 40.0 - 51.0 % | [facility] | | | | | | [facility] | | | | | | [facility] | | | | | | CENTER - | | | | | | LABORATORY | | + + + + + + | MCV | 86.0 | 83.0 - 101.0 fL | [facility] | | | | | | [facility] | | | | | | [facility]ICAL | | | | | | CENTER - | | | | | | LABORATORY | | + + + + + + | MCH | 29.9 | 28.0 - 35.0 pg | [facility] [...] + + + + | Platelet | 102 (L) | 140 - 440 K/uL | [...] + + + + | % | 62.5 | 45.0 - 82.0 % | [facility] | | | Neutrophils | | | [facility] | | | | | | MEDICAL | | | | | | CENTER - | | | | | | LABORATORY | | + + + + + + | % | 25.4 | 20.0 - 45.0 % | [facility] | | | Lymphocytes | | | [facility] | | | | | | MEDICAL | | | | | | CENTER - | | | | | | LABORATORY | | + + + + + + | % Monocytes | 9.1 | 4.0 - 12.0 % | [facility] | | | | | | [facility] | | | | | | [facility]ICAL | | | | | | CENTER - | | | | | | LABORATORY | | + + + + + + | % | 2.4 | 0.0 - 5.0 % | [facility] [...] + + + + | Absolute | 1.90 | 1.80 - 8.50 | [facility] | [...] + | [facility] | [address] | [place] | [phone] | | [facility] | | [address] | | | - LABORATORY | | | | + + + + + Comprehensive Metabolic Panel (10/09/2017 9:03 AM PST) + + + + + [...] + + + + | Glucose | 114 (H) | 70 - 109 mg/dL | [facility] | | | | | | [facility] | | | | | | MEDICAL | | | | | | CENTER - | | | | | | LABORATORY | | + + + + + + | BUN | 13 | 7 - 18 mg/dL | [facility] | | | | | [facility] | | [facility] | [facility] | | | | | | [facility] - | | | | | | LABORATORY | | + + + + + + | Creatinine | 1.02 | 0.60 - 1.30 | [facility] | | | | | mg/dL | [facility] | | | | | | MEDICAL | | | | | | CENTER - | | | | | | LABORATORY | | + + + + + + | eGFR if not | >60Comment: GLOMERULAR | >=60 | [facility] | | | | FILTRATION | mL/min/1.73m2 | [facility] | | | [place] | RATE,ESTIMATED | | MEDICAL | | | | mL/min/1.11y8Atcz than | | CENTER - | | [...] + + + + | Calcium | 9.9 | 8.3 - 10.5 | [facility] | | | | | mg/dL | [facility] | | | | | | MEDICAL | | | | | | CENTER - | | | | | | LABORATORY | | + + + + + + | Albumin | 3.8 | 3.2 - 5.0 g/dL | [facility] [...] Total | appended report. These | | [facility] [...] + + + + | ALT | 28Comment: This is an | 6 - 45 [...] + + + + | BUN/Creatin | 12.7 | | [facility] | | | ine [...] [address] | [place] | [phone] | | [facility] | | [address] | | | - LABORATORY | | | | + + + + + Lactate Dehydrogenase (10/09/2017 9:03 AM PST) + +-------+ + + + | Component | Value | Ref Range | Performed | Pathologist | | | | | At | Signature | + +-------+ + + + | LDH TOTAL | 145 | 91 - 180 U/L | [facility] [...] [address] | [place] | [phone] | | [facility] | | [address] | | | - LABORATORY | | [...] | acetaminophen (TYLENOL) tablet | Given | 10/09/19 | 650 mg | | | | 650 mg 650 mg, Oral, ONCE, Tue | | 18 11:12 | | | | | 10/09/17 at 1115, For 1 dose, Give | | AM PST | | | | | 30 minutes prior to riTUXimab., | | | | | | + +--------+ +--------+------+------+ +---+---+ | | | +---+---+ + +-------+ +---+---+---+ | ethyl chloride spray Topical, | Given | 10/09/19 | | | | | PRN, Pain, Starting 10/09/17 | | 18 9:14 | | | | | at 0902 | | AM PST | | | | + +-------+ +---+---+---+ +---+---+ | | | +---+---+ + +-------+ +-------+---+---+ | famotidine (PEPCID) injection | Given | 10/09/19 | 20 mg | | | | 20 mg 20 mg, Intravenous, ONCE, | | 18 11:14 | | | | | 10/09/17 at 1115, For 1 dose, | | AM PST [...] heparin 100 units/mL flush | Given | 10/09/19 | 500 | | | | injection 500 Units 500 Units (5 | | 18 3:00 | Units | | | | mL), Intracatheter, PRN, Line | | PM PST | | | | | Care, Starting 10/09/17 at | | | | | | | 1056 | | | | | | + +-------+ +-------+---+---+ +---+---+ | | | +---+---+ + +---------+ + +---+---+ | riTUXimab (RITUXAN) 1,000 mg in | New Bag | 10/09/19 | 1,000 mg | | | | sodium chloride 0.9% 1,000 mL | | 18 11:49 | | | | | infusion 1,000 mg (rounded from | | AM PST | | | | | 997.5 mg = 375 mg/m2 | | | | | | | 2.66 m2 Treatment plan recorded | | | | | | | BSA), Intravenous, ONCE, Tue | | | | | | | 10/09/17 at 1145, For 1 dose, | | | | [...]
--- OUTSIDE RECORDS SUMMARY | ~2019-09-27 | XMS | Encounter Summary ---
Demographics + + + | Address | [address] | | | [place] [address] | + + + | Home Phone | | + + + | Preferred Language | Unknown | + + + | Marital Status | | + + + | Adventist Affiliation | 1013 | + + + | Race | Unknown | + + + | Ethnic Group | Unknown | + + + Author + + + | Author | [facility] | | | and [place] | + + + | Organization | [facility] | | [...] [place] | | | | | [address] | | + + + + + Care Team Providers + +------+ + | Care Mix House Operator Name | Role | Phone | [...] [address] | | | | | Diffuse | Moham[place], | [place] | | | | | large B-cell | Joaquim C, | [place], | | | | | lymphoma of | MD [address] | [place] [address] | | | | | | [address] | Phone: | | | | | intra-abdomi | [place], | [phone] | | | | | nal lymph | [place] [address] | Fax: | | | | | nodes (HCC) | Phone: | [phone] | | | | | Procedures | [phone] | | | | | | CT Chest | Fax: | | | | | | Abdomen | [phone] | | | | | | Pelvis w | | | | | | | Contrast | | | +--------+--------+ + + + + Reason for Visit + + + | Reason | Comments | + + + | Follow-up | | + + + Encounter Details +--------+ + + + + | Date | Type | Department | Care Team | Description | +--------+ + + + + | 11/07/ | Hospital | [facility] | Moh[place]um[place], | Diffuse large B-cell | | 2017 | Encounter | [facility] | Joaquim Benson MD [address] | lymphoma of | | | | [facility]OGY CLINIC [address] | [address] [place] | intra-abdominal | | | | [address] [place] | [place] [address] | lymph nodes (HCC) | | | | [place] [address] | [phone] | (Primary Dx) | | | | [phone] | | | +--------+ + + + [...] + + + | Blood Pressure | 128/80 | 11/07/2016 8:54 AM | | | | | PST | | + + + + + | Pulse | 59 | 11/07/2016 8:54 AM | | | | | PST | | + + + + + | Temperature | 36.2 C (97.1 F) | 11/07/2016 8:54 AM | | | | | PST | | + + + + + | Respiratory Rate | 16 | 11/07/2016 8:54 AM | | | | | PST | | + + + + + | Oxygen Saturation | 95% | 11/07/2016 8:54 AM | | | | | PST | | + + + + + | Inhaled Oxygen | - | - | | | Concentration | | | | + + + + + | Weight | 140.9 kg (310 lb 9.6 | 11/07/2016 8:54 AM | | | | oz) | PST | | + + + + + | Height | - | - | | + + + + + | Body Mass Index | 39.88 | 07/18/2016 4:16 PM | | | [...] encounter Progress Notes Joaquim Tejeda MD - 11/07/2016 8:39 AM PSTFormatting of this note might be differe nt from the original. Hematology/Oncology Progress Note [facility] DANIEL Blanca Pt. Name/Age/: Joaquim Sanchez Jr. 66 y.o. 1950 Med. Record Number: [id number] Date of admission: 11/07/2016 Identifying Statement: Joaquim Sanchez Jr. is a 66 y.o. male from [address] [place] [address] with Diffuse Large B-Cell Lymphoma. The patient [...] lower extremity. CT abdomen/Pelvis with contrast 2016 ([facility]). Ex tensive periaortic lymphadenopathy (1.8 cm and 2.1 cm respectively), extensive adenopathy ex tending out along the left common iliac artery and encasing the left external iliac artery ( 4.4 cm) with compromise of the left external iliac vein. 2. Open laparotomy with LEFT ileal retroperitoneal lymph node biopsy ([facility], [facility]) June 242015. Specimen #[id number] ([facility]); Diffuse Large B-Cell lymph raciel, [...] September 04, 2016. 10. CT [facility]dom[facility]elvis at [facility] on September 12, 2016; Positive Response [...] due to peripheral neuropathy) October 17, 2016. 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 Review of systems is notable for ongoing fatigue, nausea (without emesis), night sweats, dy sphagia, dyspepsia, numbness in the fingers and toes which has progressed in the lower extre mities to include painful dysesthesias, dysuria, insomnia, decreased mental acuity and separ ation of the toenails from the nailbeds. He is also complaining of headaches and decreased v isual acuity, chest pain and palpitations, and dyspnea on exertion. He also complains of rhi norrhea and epiphora. Clinical exam is not changed. Laboratory exam is notable for grade 1 anemia, thrombocytopenia and leukopenia, without aishwarya tropenia, none of which is dose-limiting. Repeat cardiac echocardiogram is notable for a normal cardiac ejection fraction. Assessment; Diffuse Large B-Cell Lymphoma/Follicular B-cell lymphoma, at least stage III, s tatus post three cycles of RCHOP and two cycles of RCHP with response but also with intolera ble adverse effects, primarily neurasthenia and painful peripheral neuropathy. Plan; This was an extended, 25-minute shared decision-making encounter with Rios where he expressed his resistance to a sixth cycle of cytotoxic chemotherapy but his willingness to b egin maintenance rituximab at 375 mg/m once every 2 months for two years starting today (P ITZEL protocol). Rios will receive his first maintenance infusion of rituximab today, then r eturn to clinic in two months for his second infusion. In the interval, he will undergo repe at imaging at the [facility] in [place], [place]. Review of Systems: Constitutional: Reports energy level is fair. States having chills after last chemo, hot fl ashes occasionally. Reports nausea has been increased- "it was bad this last round of chemo" . States night sweats are less- "nothing body soaking". Denies high fevers, shaking chills , anorexia, vomiting, weight loss. Appetite without changes. Ear, Nose, Mouth, Throat: Reports dysphagia- "with this last round of treatment, even swall owing water was hard at times". Denies tinnitus. Cardiovascular: Reports dyspnea on exertion, chest pain occasionally after last chemo and v aried heart palpitations. Denies shortness of breath or orthopnea. Respiratory: Denies cough, hemoptysis, or sputum production. Gastrointestinal: Reports minor mid abdominal pain, constipation that lasted 3 days after l ast chemo- continues on stool softeners(sennakot). Denies diarrhea, melena, or bright red bl ood per rectum. Genitourinary: Reports having burning intermittently on urination, states happened again to day. Denies hematuria. Musculoskeletal: Reports continued joint aches "especially in feet where the toes meet on t he foot". Neurologic: Reports tingling in "fingers and toes that lopez so bad sometimes I have to markell p them moving". States headaches happen occasionally with intermittent blurry vision. Endocrine: Continued swelling in lower extremities- unchanged. Denies heat/cold intolerance . Hematologic: Denies spontaneous bruising or bleeding. Integumentary: Reports toenails and fingernails are "dying". States he went to his podiatri st last week and nail beds are loose. Denies rash or wounds. Pain: Denies pain. Note: Here for follow up, labs and treatment. Reports feeling anxious today, "it was hard t o want to come here today". My chart: active Scheduled Medications: Current Outpatient [...] tablet 3 predniSONE (DELTASONE) 20 mg tablet 5 pills for 5 days after chemo. 4 Sennosides (MP SENALAX PO) Take 2 capsules by mouth Daily. traMADol (ULTRAM) 50 mg tablet Take 50 mg by mouth every 6 hours as needed. VITAMIN E COMPLEX PO Take by mouth. XARELTO 10 MG tablet Take 1 tablet by mouth Daily. No current facility-administered medications for this encounter. [...] Inguinal hernia repair incarcerated Stent 2013 RCA Internal jugular bard port-a-cath Right 08/11/2017 Honor Social History Social History Marital Status: Spouse [...] Lymphedema of left lower extremity Objectives: Temp: 36.2 C (97.1 F) BP: 128/80 mmHg Pulse: 59 Resp: 16 SpO2: 95 % on Min/Max Temp past 24 hours:No Data Recorded No intake or output data in the 24 hours ending 11/09/16 0837 Wt. Admission: Weight: (!) 140.887 kg (310 lb 9.6 oz) Wt. Current: Weight: (!) 140.887 kg (310 lb 9.6 oz) Wt Readings from Last 3 Encounters: 11/07/16 140.887 kg (310 lb 9.6 oz) 10/26/16 139.935 kg (308 lb 8 oz) 10/17/16 140.479 kg (309 lb 11.2 oz) Physical Exam: General: The patient is [...] the neck, supraclavicular fossa, axilla or groin. The patient' s concern regarding a mass in the left groin is an area of trapped lymphedema above the top of his compression garment. Neurological: Cranial nerves are intact. Normal sensory [...] ) as of 11/08/2016 09:09 Ref. Range 11/07/2016 08:17 WBC Latest Ref Range: 4.0-11.0 K/uL 3.4 (L) RBC: Latest Ref Range: 4.30-5.70 M/uL 3.52 (L) Hgb Latest Ref Range: 13.5-18.0 g/dL 10.7 (L) Hct, Final Latest Ref Range: 40.0-51.0 % 31.3 (L) MCV Latest Ref Range: 83.0-101.0 fL 88.9 MCH Latest Ref Range: 28.0-35.0 pg 30.4 MCHC Latest Ref Range: 32.0-36.0 g/dL 34.2 RDW-CV Latest Ref Range: <15.0 % 18.7 (H) Platelet Count Latest Ref Range: 140-440 K/uL 125 (L) MPV Latest Units: fL 8.3 Absolute Neutrophils Latest Ref Range: 1.80-8.50 K/uL 2.40 Absolute Lymphocytes Latest Ref Range: 0.60-3.20 K/uL 0.50 (L) Absolute Monocytes Latest Ref Range: 0.00-1.00 K/uL 0.30 Absolute Eosinophils Latest Ref Range: 0.00-0.40 K/uL 0.10 Absolute Basophils Latest Ref Range: 0.00-0.10 K/uL 0.00 % Neutrophils Latest Ref Range: 45.0-82.0 % 71.9 % Lymphocytes Latest Ref Range: 20.0-45.0 % 15.1 (L) % Monocytes Latest Ref Range: 4.0-12.0 % 9.8 % Eosinophils Latest Ref Range: 0.0-5.0 % 2.3 % Basophils Latest Ref Range: 0.0-1.0 % 0.9 NA Latest Ref Range: 136-149 mmol/L 139 K Latest Ref Range: 3.5-5.1 mmol/L 3.7 Chloride Latest Ref Range: 98-109 mmol/L 107 Carbon dioxide Latest Ref Range: 24-31 mmol/L 25 ANION GAP Latest Ref Range: 3-16 mmol/L 7 GLUCOSE Latest Ref Range: 70-109 mg/dL 130 (H) BUN Latest Ref Range: 7-18 mg/dL 16 BUN/CREA Unknown 15.7 Creatinine Latest Ref Range: 0.60-1.30 mg/dL 1.02 ALBUMIN Latest Ref Range: 3.2-5.0 g/dL 3.5 Albumin/Globulin ratio Latest Ref Range: 0.8-2.0 1.5 Total protein Latest Ref Range: 6.0-7.8 g/dL 5.9 (L) EGFR IF NOT Latest Ref Range: >=60 mL/min/1.73m2 >60 Calcium Latest Ref Range: 8.3-10.5 mg/dL 9.4 ALK PHOS Latest Ref Range: 40-110 U/L 50 ALT (SGPT) (REF) Latest Ref Range: 6-45 U/L 18 AST (SGOT) (REF) Latest Ref Range: 10-42 U/L 21 LDH TOTAL Latest Ref Range: 91-180 U/L 165 BILIRUBIN TOTAL Latest Ref Range: 0.1-1.5 mg/dL 0.3 GLOBULIN Latest Ref Range: 2.1-3.8 g/dL 2.4 Pharmacovigilance: Results for JOAQUIM SANCHEZ JR. ( ) as of 11/08/2016 09:09 Ref. Range 10/26/2016 11:35 LVEF-TTE TRANSTHORACIC ECHO Unknown 70 Palliative Care: Patient's Medications New Prescriptions No medications on file Modified Medications No medications on file Discontinued Medications No medications on file Procedure note: Day 1, Rituxan every 2 months x 2 years Dose # 1 (56-day cycle) Completed; Released on ; Originally planned for 11/07/2016 Labs Lactate Dehydrogenase STAT, ONE TIME, e 11/07/16 at 0818, For 1 occurrence OrderHistory Comprehensive Metabolic Panel STAT, ONE TIME, e 11/07/16 at 0818, For 1 occurrence OrderHistory CBC with Differential STAT, ONE TIME, Sun11/07/16 at 08, For 1 occurrence OrderHistory Nursing Orders OK to proceed with chemotherapy (Not Released) 11/07/16 - Cancel Cycle #6 RCH(O)P NEW Plan; Rituxan 375 mg/m iv q 2 months (PRIMA protocol) starting today. INFORMED CONSENT: The nature and character of the proposed treatment with maintenance ritux imab and the anticipated results of the proposed treatment with maintenance rituximab;recogn ized alternative forms of treatment, including non-treatment; the risks benefits, and side e ffects of proposed treatment, alternative treatments and non-treatment were discussed with t he patient who consents to proceed with treatment with maintenance rituximab. The treating fredy bishop has examined the patient and reviewed the diagnostic data, including laboratory data , and deems that it is safe and appropriate to proceed with treatment with maintenance ritux imab.JOAQUIM TEJEDA MD. OrderHistory Plans for discharge (Not Released) No more PREDNISONE . No more neulasta in mckenna QFU CBC,CMP,LDH Port DRAW I N 2 months with 4 hour infusion. JOAQUIM TEJEDA MD OrderHistory Pre-Medications famotidine (PEPCID) injection 20 mg 20 mg, Intravenous, ONCE, e 11/07/16 at 0945, For 1 dose Prior to administration, prepare a 20 mg dose by diluting 2 mL of famotidine 10 mg/mL to 10 mL with normal saline. OrderHistory acetaminophen (TYLENOL) tablet 650 mg 650 mg, Oral, ONCE, Sun11/07/16 at 0945, For 1 dose Give 30 minutes prior to riTUXimab. OrderHistory CHEMOTHERAPY riTUXimab (RITUXAN) 1,000 mg in sodium chloride 0.9% 1,000 mL infusion 1,000 mg (rounded from 997.5 mg = 375 mg/m2 2.66 m2 Treatment plan actual BSA), Intr avenous, ONCE, Sun11/07/16 at 1015, For 1 dose Initial infusion: Start at [...] heparin 100 units/mL flush injection 500 Units (Discontinued - Patient Discharge) 500 Units (5 mL), Intercatheter, PRN, Line Care, Starting Sun11/07/16 at 0925 Order History PRN Medications LORazepam (ATIVAN) injection 1 mg (Not Released) 1 mg, Intravenous, EVERY 4 HOURS PRN, Anxiety, Starting when released, Until Discontinu ed OrderHistory Infusion Reaction Orders Monitor patient (Not Released) Monitor patient during riTUXimab infusion for fever, chills, rigors, bronchospasm, darion na, edema, hypotension, nausea. OrderHistory meperidine (DEMEROL) 25 mg/mL injection 25 mg (Not Released) 25 mg, Intravenous, EVERY 2 HOURS PRN, severe chills/rigors with riTUXimab, Starting wh en released, for 24 hours OrderHistory Stop infusion if: (Not Released) Stop infusion if an infusion reaction is suspected (pruritis, flushing, rhinitis, fever , rash, back pain, dyspnea). Notify MD. OrderHistory Check vital signs (Not Released) Check vital signs q5 minutes until back to baseline, then q15 minutes until resolution of symptoms. OrderHistory Start oxygen (Not Released) Start oxygen at 6-8 LPM for O2 <= 90%. OrderHistory diphenhydrAMINE (BENADRYL) injection 25 mg (Not Released) 25 mg, Intravenous, EVERY 15 MIN PRN, Infusion reaction, Starting when released, for 2 doses Administer as needed for infusion reaction. OrderHistory methylPREDNISolone sodium succinate (solu-MEDROL) 62.5 mg/mL injection 125 mg (Not Re leased) 125 mg, Intravenous, ONCE PRN, infusion reaction, [...] only one steroid. OrderHistory Resume infusion if: (Not Released) Resume infusion when symptoms resolve, as directed by MD. OrderHistory Nursing Orders Anaphylaxis orders (Not Released) [...] this chart may have been created with [employer] voice recognition software. Occasi onal wrong-word or [...] | | | | | [place], [place] | | | | | | [address] | | | | | | | [...] | e | B-cell lymphoma of | 11/07/2016, Expires: | | | | | intra-abdominal | 11/08/2017 | | | | | lymph nodes (HCC) | | + +---------+--------+ + + | CBC w/ Auto | Lab | STAT | Diffuse large | 1 Occurrences | | Differential | | | B-cell lymphoma of | starting 11/07/2016 | | | | | intra-abdominal | until 11/07/2017 | | | | | lymph nodes (HCC) | | + +---------+--------+ + + | Lactate | Lab | STAT | Diffuse large | 1 Occurrences | | Dehydrogenase | | | B-cell lymphoma of | starting 11/07/2016 | | | | | intra-abdominal | until 11/08/2017 | | | | | lymph nodes (HCC) | | + +---------+--------+ + + | Immunoglobulin, | Lab | STAT | Diffuse large | 1 Occurrences | | Panel, IgG and IgM | | | B-cell lymphoma of | starting 11/07/2016 | | and IgA | | | intra-abdominal | until 11/07/2017 | | | | | lymph nodes (HCC) | | + +---------+--------+ + + documented as of this encounter Procedures + +--------+ + + + | Procedure Name | Priori | Date/Time | Associated Diagnosis | Comments | | | ty | | | | + +--------+ + + + | IMAGING REPORT - | | 12/01/2016 | | Results for this | | EXTERNAL SCAN | | 12:00 AM | | procedure are in the | | | | PST | | results section. | + +--------+ + + + documented in this encounter Results IMAGING REPORT - EXTERNAL SCAN (12/01/2016 12:00 AM PST) + + + | Narrative | Performed [...]
--- OUTSIDE RECORDS SUMMARY | ~2019-09-27 | XMS | Encounter Summary ---
Demographics + + + | Address | [address] | | | [place] [address] | + + + | Home Phone | | + + + | Preferred Language | Unknown | + + + | Marital Status | | + + + | Temple Affiliation | 1013 | + + + | Race | Unknown | + + + | Ethnic Group | Unknown | + + + Author + + + | Author | [facility] | | | and [place] | + + + | Organization | [facility] | | | and [...] [place] | | | | | [address] | | + + + + + Care Team Providers + +------+ + | Care Button Spindler Name | Role | Phone | + +------+ + | Earle Chacko MD | PCP | | + +------+ + Reason for Visit +--------+ + | Reason | Comments | +--------+ + | Other | | +--------+ + Encounter Details +--------+ + + + + | Date | Type | Department | Care Team | Description | +--------+ + + + + | 09/22/ | Telephone | [facility] | Mohamud, | Other | | 2016 | | [facility] | Gerber Benson MD [address] | | | | | [facility] [address] | [facility] | | | | | [address] | [place] [address] | | | | | [place] [address] | [phone] | | | | | [phone] | | | +--------+ + + + [...] [place] | | | | | | [address] | | | | | | | | +--------+---------+ + + + documented as of this encounter Visit Diagnoses Not on filedocumented in this encounter"
--- OUTSIDE RECORDS SUMMARY | ~2019-09-27 | XMS | Encounter Summary ---
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 | Role | Phone [...] large b-cell | Gerber Benson, | [place] | | | | | lymphoma, | MD [address] | [place], | | | | | intra-abdomi | [address] | [place] [address] | | | | | nal lymph | [place], | Phone: | | | | | nodes (HCC) | [place] [address] | [phone] | | | | | Procedures | Phone: | Fax: | | | | | [place] | [phone] | [phone] | | | | | RITUXIMAB | Fax: | | | | | | INJECTION, | [phone] | | | | | | 100 MG DC | | | | | | | MEPERIDINE | | | | | | | HYDROCHL | | | | | | | /100 MG DC | | | | | | | IV INFUSION, | | | | | | | HYDRATION, | | | | | | | 31-60 MIN | | | | | | | DC IV | | | | | | | INFUSION, | | | | | | | HYDRATION, | | | | | | | EA ADD HOUR | | | | | | | DC | | | | | | | ONDANSETRON | | | | | | | HCL | | | | | | | INJECTION, 1 | | | | | | | MG DC | | | | | | | DEXAMETHASON | | | | | | | E SODIUM | | | | | | | PHOS, 1 MG | | | | | | | DC | | | | | | | FOSAPREPITAN | | | | | | | T INJECTION, | | | | | | | 1 MG DC | | | | | | | PREDNISONE | | | | | | | IR OR DR | | | | | | | ORAL 1MG DC | | | | | | | | | | | | | | CYCLOPHOSPHA | | | | | | | MIDE 100 MG | | | | | | | INJ DC | | | | | | | DOXORUBICIN | | | | | | | HCL | | | | | | | INJECTION, | | | | | | | 10 MG DC | | | | | | | VINCRISTINE | | | | | | | SULFATE 1 MG | | | | | | | INJ DC | | | | | | | DIPHENHYDRAM | | | | | | | INE HCL | | | | | | | INJECTIO, 50 | | | | | | | MG DC | | | | | | | METHYLPREDNI | | | | | | | SOLONE | | | | | | | INJECTION, | | | | | | | 125 MG DC | | | | | | | DEXAMETHASON | | | | | | | E SODIUM | | | | | | | PHOS, 1 MG | | | | | | | DC | | | | | | | INJECTION, | | | | | | | PEGFILGRASTI | | | | | | | M 6MG DC | | | | | | | NORMAL | | | | | | | SALINE | | | | | | | SOLUTION | | | | | | | INFUS, 500 | | | | | | | ML DC | | | | | | | NORMAL | | | | | | | SALINE | | | | | | | SOLUTION | | | | | | | INFUS, 250 | | | | | | | ML DC | | | | | | | STERILE | | | | | | | WATER/SALINE | | | | | | | , 10 ML DC | | | | | | | CHEMOTHER, | | | | | | | IV PUSH,EA | | | | | | | ADD DRUG DC | | | | | | | CHEMOTHER, | | | | | | | IV INFUSION, | | | | | | | 1 HR DC | | | | | | | CHEMOTHER, | | | | | | | IV INFUSION, | | | | | | | EA HR DC | | | | | | | CHEMOTHER,NO | | | | | | | N-HORMONE | | | | | | | ANTI-NEOPL, | | | | | | | SUB-Q/IM DC | | | | | | | [...] | +--------+ + + + + | 09/26/ | [facility] | [facility] | Mohamud, | 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 Discharged ambulatory. [...] | | | | | [place], [place] | | | | | | [address] | | | | | | | | +--------+---------+ + + + documented as of this encounter Procedures + +--------+ + + + | Procedure Name | Priori | Date/Time | Associated Diagnosis | Comments | | | ty | | | | + +--------+ + + + | CBC WITH | STAT | 09/26/2016 | Diffuse large | Results for this | | DIFFERENTIAL | | 8:05 AM | B-cell lymphoma of | procedure are in the | | | | PST | intra-abdominal | results section. | | | | | lymph nodes (HCC) | | + +--------+ + + + | LACTATE | STAT | 09/26/2016 | Diffuse large | Results for this | | DEHYDROGENASE | | 8:05 AM | B-cell lymphoma of | procedure are in the | | | | PST | intra-abdominal | results section. | | | | | lymph nodes (HCC) | | + +--------+ + + + | COMPREHENSIVE | STAT | 09/26/2016 | Diffuse large | Results for this | | METABOLIC PANEL | | 8:05 AM | B-cell lymphoma of | procedure are in the | | | | PST | intra-abdominal | results section. | | | | | lymph nodes (HCC) | | + +--------+ + + + documented in this encounter Results CBC with Differential (09/26/2016 8:05 AM PST) + + + + + + | Component | Value | Ref Range | Performed | Pathologist | | | | | At | Signature | + + + + + + | WBC | 3.5 (L) | 4.0 - 11.0 K/uL | [facility] | | | | | | [facility] - | | | | | | [facility]ATORY | | + + + + + + | RBC | 3.66 (L) | 4.30 - 5.70 | [facility] | | | | | M/uL | [facility] | [facility] - | | | | | | LAB[facility]ATORY | | + + + + + + | Hemoglobin | 10.9 (L) | 13.5 - 18.0 | [facility] | | | | | g/dL | [facility] | | [facility] | [facility] | | | | [facility] - | | | | | | LAB[facility]ATORY | | + + + + + + | Hematocrit | 32.1 (L) | 40.0 - 51.0 % | [facility] | | | | | | [facility] | [facility] | | | | [facility] - | | | | | | LAB[facility]ATORY | | + + + + + + | MCV | 87.7 | 83.0 - 101.0 fL | [facility] [...] + + + + | MCHC | 34.1 | 32.0 - 36.0 | [facility] | | | | | g/dL | [facility] | [facility] - | | | | | | [facility]ATORY | | + + + + + + | RDW-CV | 20.4 (H) | <15.0 % | [facility] | | | | | | [facility] | | | [facility] - | | | | | | LAB[facility]ATORY | | + + + + + + | Platelet | 124 (L) | 140 - 440 K/uL | [facility] | | | Count | | | [facility] | | [facility] | [facility] | | | | | [facility] - | | | | | | LAB[facility]ATORY | | + + + + + + | MPV | 8.4 | fL | [facility] | | | | | | [facility] | [facility] | [facility] | | | | [facility] - | | | | | | [facility] | | + + + + + + | % | 69.9 | 45.0 - 82.0 % | [facility] | | | Neutrophils | | | [facility] | | | [facility] | | [facility] | | | | [facility] | [facility] - | | | | | | LAB[facility]ATORY | | + + + + + + | % | 19.9 (L) | 20.0 - 45.0 % | [facility] | | | Lymphocytes | | | [facility] | | | [facility] | [facility] | | | | | [facility] - | | | | | | LAB[facility]ATORY | | + + + + + + | % Monocytes | 7.8 | 4.0 - 12.0 % | [facility] | | | | | | [facility] | | [facility] | [facility] | | | | | | [facility] - | | | | | | LABORATORY | | + + + + + + | % | 1.0 | 0.0 - 5.0 % | [facility] | | | Eosinophils | | | [facility] | | | | | | [facility] | | | | | | [facility] - | | | | | | LABORATORY | | + + + + + + | % Basophils | 1.4 (H) | 0.0 - 1.0 % | [...] | Neutrophils | | K/uL | [facility] | | [facility] | | [facility] | | | | | | [facility] - | | | | | | LABORATORY | | + + + + + + | Absolute | 0.70 | 0.60 - 3.20 | [facility] | | | Lymphocytes | | K/uL | [facility] | [...] | Basophils | | K/uL | [facility] | | | | [...] [address] | [place] | [phone] | | [facility] | | [address] | | | - LABORATORY | | | | + + + + + Comprehensive Metabolic Panel (09/26/2016 8:05 AM PST) + + + + + + | Component | Value | Ref Range | Performed | Pathologist | | | | | At | Signature | + + + + + + | Na | 142 | 136 - 149 | [facility] | [...] + + + + | Cl | 109 | 98 - 109 mmol/L | [facility] [...] + + + + | Glucose | 134 (H) | 70 - 109 mg/dL | [facility] | | | | | | [facility] | | | | | | [facility] | | | | | | [facility] - | | | | | | LABORATORY | | + + + + + + | BUN | 16 | 7 - 18 mg/dL | [facility] | | | | | | [facility] | | | | | | [facility] | | | | | | CENTER - | | | | | | LABORATORY | | + + + + + + | Creatinine | 0.89 | 0.60 - 1.30 | [facility] | | | | | mg/dL | [facility] | | | | | | [facility] | | | | | | CENTER - | | | | | | LABORATORY | | + + + + + + | eGFR if not | >60Comment: GLOMERULAR | >=60 | [facility] | | | | FILTRATION | mL/min/1.73m2 | [facility] | | | CYMRO | RATE,ESTIMATED | | MEDICAL | | | | mL/min/1.32w2Ijsf than | | CENTER - | | [...] + + + + | Albumin | 3.6 | 3.2 - 5.0 g/dL | [facility] | | | | | | [facility] | | | | [facility] | [facility] | | | | | | [facility] - | | | | | | LABORATORY | | + + + + + + | Bilirubin | 0.6 | 0.1 - 1.5 mg/dL | [facility] [...] + + + + | AST | 18 | 10 - 42 U/L | [facility] [...] + + + + | Alkaline | 44 | 40 - 110 U/L | [facility] [...] + + + + | BUN/Creatin | 18.0 | | [facility] | | | ine [...] [address] | [place] | [phone] | | [facility] | | [address] | | | - LABORATORY | | | | + + + + + Lactate Dehydrogenase (09/26/2016 8:05 AM PST) + +-------+ + + + | Component | Value | Ref Range | Performed | Pathologist | | | | | At | Signature | + +-------+ + + + | LDH TOTAL | 148 | 91 - 180 U/L | [facility] [...] [address] | [place] | [phone] | | [facility] | | [address] | | | - LABORATORY | | [...] | acetaminophen (TYLENOL) tablet | Given | 09/26/19 | 650 mg | | | | 650 mg 650 mg, Oral, ONCE, Tue | | 17 9:16 | | | | | 09/26/16 at 0930, For 1 dose, Give | | AM PST | | | | | 30 minutes prior to riTUXimab., | | | | | | + +--------+ +--------+------+------+ +---+---+ | | | +---+---+ + +---------+ + +-------+---+ | cyclophosphamide (CYTOXAN) | New Bag | 09/26/19 | 2,000 mg | 350 | | | 2,000 mg in sodium chloride 0.9% | | 17 1:59 | | mL/hr | | | 250 [...] | | | over 60 Minutes, ONCE, 09/26/16 | | | | | | | at 1430, For 1 dose, | | | | | | | Chemotherapy: Use appropriate | | | | | | | handling precautions., | | | | | | + +---------+ + +-------+---+ +---+---+ | | | +---+---+ + +-------+ +-------+---+---+ | diphenhydrAMINE (BENADRYL) | Given | 09/26/19 | 25 mg | | | | injection 25 mg 25 mg, | | 17 9:19 | | | | | Intravenous, ONCE, 09/26/16 at | | AM PST | | | | | 0930, For 1 dose | | | | | | + +-------+ +-------+---+---+ +---+---+ | | | +---+---+ + +---------+ +--------+-------+---+ | DOXOrubicin (ADRIAMYCIN) 133 mg | New Bag | 09/26/19 | 133 mg | 633 | | | in sodium chloride 0.9% 250 mL | | 17 1:26 | | mL/hr | | | chemo infusion 133 mg (50 mg/m2 | | PM PST | | | | | | | | | | | | 2.66 m2 Treatment plan recorded | | | | | | | BSA), Intravenous, Administer | | | | | | | over 30 Minutes, ONCE, 09/26/16 | | | | | | | at 1400, For 1 dose, | | | | | | | Chemotherapy: Use appropriate | | | | | | | handling precautions. Vesicant. | | | | | | | Protect from light., | | | | | | + +---------+ +--------+-------+---+ +---+---+ | | | +---+---+ + +---------+ +--------+-------+---+ | fosaprepitant (EMEND) 150 mg in | New Bag | 09/26/19 | 150 mg | 450 | | | sodium chloride 0.9% 150 mL IVPB | | 17 9:40 | | mL/hr | | | 150 mg, Intravenous, Administer | | AM PST | | | | | over 20 Minutes, ONCE, Tue | | | | | | | 09/26/16 at 0945, For 1 dose, Do | | | | | | | not shake bag. Administer prior | | | | | | | to chemotherapy., | | | | | | + +---------+ +--------+-------+---+ +---+---+ | | | +---+---+ + +-------+ +-------+---+---+ | heparin 100 units/mL flush | Given | 09/26/19 | 500 | | | | injection 500 Units 500 Units (5 | | 17 3:11 | Units | | | | mL), Intracatheter, PRN, Line | | PM PST | | | | | Care, Starting 09/26/16 at 0901 | | | | | | + +-------+ +-------+---+---+ +---+---+ | | | +---+---+ + +---------+ +---+-------+---+ | ondansetron (ZOFRAN) 8 mg, | New Bag | 09/26/19 | | 204 | | | dexamethasone (DECADRON) 4 mg in | | 17 9:20 | | mL/hr | | | sodium chloride 0.9% 50 mL IVPB | | AM PST | | | | | Intravenous, Administer over 16 | | | | | | | Minutes, ONCE, 09/26/16 at | | | | | | | 0930, For 1 dose | | | | | | + +---------+ +---+-------+---+ +---+---+ | | | +---+---+ + +---------+ + +---+---+ | riTUXimab (RITUXAN) 1,000 mg in | New Bag | 09/26/19 | 1,000 mg | | | | sodium chloride 0.9% 1,000 mL | | 17 10:05 | | | | | infusion 1,000 mg (rounded from | | AM PST | | | | | 997.5 mg = 375 mg/m2 | | | | | | | 2.66 m2 Treatment plan recorded | | | | | | | BSA), Intravenous, ONCE, Tue | | | | | | | 09/26/16 at 1000, For 1 dose, | | [...]
--- OUTSIDE RECORDS SUMMARY | ~2019-09-27 | XMS | Encounter Summary ---
Demographics + + + | Address | [address] | | | [place] [address] | + + + | Home Phone | | + + + | Preferred Language | Unknown | + + + | Marital Status | | + + + | Restoration Affiliation | 1013 | + + + | Race | Unknown | + + + | Ethnic Group | Unknown | + + + Author + + + | Author | [facility] | | | and [place] | + + + | Organization | [facility] | | [...] [place] | | | | | [address] | | + + + + + Care Team Providers + +------+ + | Care Audio Director Name | Role | Phone | + [...] large b-cell | Gerber Benson, | [place] | | | | | lymphoma, | MD [address] | [place], | | | | | intra-abdomi | [address] | [place] [address] | | | | | nal lymph | [place], | Phone: | | | | | nodes (HCC) | [place] [address] | [phone] | | | | | Procedures | Phone: | Fax: | | | | | [place] | [phone] | [phone] | | | | | RITUXIMAB | Fax: | | | | | | INJECTION, | [phone] | | | | | | 100 MG MN | | | | | | | MEPERIDINE | | | | | | | HYDROCHL | | | | | | | /100 MG MN | | | | | | | IV INFUSION, | | | | | | | HYDRATION, | | | | | | | 31-60 MIN | | | | | | | MN IV | | | | | | | INFUSION, | | | | | | | HYDRATION, | | | | | | | EA ADD HOUR | | | | | | | MN | | | | | | | ONDANSETRON | | | | | | | HCL | | | | | | | INJECTION, 1 | | | | | | | MG MN | | | | | | | DEXAMETHASON | | | | | | | E SODIUM | | | | | | | PHOS, 1 MG | | | | | | | MN | | | | | | | FOSAPREPITAN | | | | | | | T INJECTION, | | | | | | | 1 MG MN | | | | | | | PREDNISONE | | | | | | | IR OR DR | | | | | | | ORAL 1MG MN | | | | | | | | | | | | | | CYCLOPHOSPHA | | | | | | | MIDE 100 MG | | | | | | | INJ MN | | | | | | | DOXORUBICIN | | | | | | | HCL | | | | | | | INJECTION, | | | | | | | 10 MG MN | | | | | | | VINCRISTINE | | | | | | | SULFATE 1 MG | | | | | | | INJ MN | | | | | | | DIPHENHYDRAM | | | | | | | INE HCL | | | | | | | INJECTIO, 50 | | | | | | | MG MN | | | | | | | METHYLPREDNI | | | | | | | SOLONE | | | | | | | INJECTION, | | | | | | | 125 MG MN | | | | | | | DEXAMETHASON | | | | | | | E SODIUM | | | | | | | PHOS, 1 MG | | | | | | | MN | | | | | | | INJECTION, | | | | | | | PEGFILGRASTI | | | | | | | M 6MG MN | | | | | | | NORMAL | | | | | | | SALINE | | | | | | | SOLUTION | | | | | | | INFUS, 500 | | | | | | | ML MN | | | | | | | NORMAL | | | | | | | SALINE | | | | | | | SOLUTION | | | | | | | INFUS, 250 | | | | | | | ML MN | | | | | | | STERILE | | | | | | | WATER/SALINE | | | | | | | , 10 ML MN | | | | | | | CHEMOTHER, | | | | | | | IV PUSH,EA | | | | | | | ADD DRUG MN | | | | | | | CHEMOTHER, | | | | | | | IV INFUSION, | | | | | | | 1 HR MN | | | | | | | CHEMOTHER, | | | | | | | IV INFUSION, | | | | | | | EA HR MN | | | | | | | CHEMOTHER,NO | | | | | | | N-HORMONE | | | | | | | ANTI-NEOPL, | | | | | | | SUB-Q/IM MN | | | | | | | [...] + + + + | 09/05/ | [facility] | [facility] | Mohamud, | 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 [...] | | | | | [place] | | | | | | [address] | | | | | | | | +--------+---------+ + + + documented as of this encounter Procedures + +--------+ + + + | Procedure Name | Priori | Date/Time | Associated Diagnosis | Comments | | | ty | | | | + +--------+ + + + | IRON AND TRANSFERRIN | STAT | 09/05/2016 | Diffuse large | Results for this | | | | 8:24 AM | B-cell lymphoma of | procedure are in the | | | | PST | intra-abdominal | results section. | | | | | lymph nodes (HCC) | | + +--------+ + + + | CBC WITH | STAT | 09/05/2016 | Diffuse large | Results for this | | DIFFERENTIAL | | 8:24 AM | B-cell lymphoma of | procedure are in the | | | | PST | intra-abdominal | results section. | | | | | lymph nodes (HCC) | | + +--------+ + + + | LACTATE | STAT | 09/05/2016 | Diffuse large | Results for this | | DEHYDROGENASE | | 8:24 AM | B-cell lymphoma of | procedure are in the | | | | PST | intra-abdominal | results section. | | | | | lymph nodes (HCC) | | + +--------+ + + + | FERRITIN | STAT | 09/05/2016 | Diffuse large | Results for this | | | | 8:24 AM | B-cell lymphoma of | procedure are in the | | | | PST | intra-abdominal | results section. | | | | | lymph nodes (HCC) | | + +--------+ + + + | COMPREHENSIVE | STAT | 09/05/2016 | Diffuse large | Results for this | | METABOLIC PANEL | | 8:24 AM | B-cell lymphoma of | procedure are in the | | | | PST | intra-abdominal | results section. | | | | | lymph nodes (HCC) | | + +--------+ + + + documented in this encounter Results CBC with Differential (09/05/2016 8:24 AM PST) + + + + + + | Component | Value | Ref Range | Performed | Pathologist | | | | | At | Signature | + + + + + + | WBC | 3.0 (L) | 4.0 - 11.0 K/uL | [...] + + + + | Hematocrit | 31.9 (L) | 40.0 - 51.0 % | [facility] | [facility] | | | | | | [facility]ATORY | | + + + + + + | MCV | 87.1 | 83.0 - 101.0 fL | [facility] - | | | | | | LAB[facility]ATORY | | + + + + + + | MCH | 29.5 | 28.0 - 35.0 pg | [facility] [...] + + + + | RDW-CV | 20.3 (H) | <15.0 % | [facility] | | | | [facility] - | | | | | | LAB[facility]ATORY | | + + + + + + | Platelet | 140 | 140 - 440 K/uL | [facility] | | | Count | | | [facility] | [facility] | | | | [facility] - | | | | | | LAB[facility]ATORY | | + + + + + + | MPV | 8.6 | fL | [facility] | | | | [facility] - | | | | | | LAB[facility]ATORY | | + + + + + + | % | 66.2 | 45.0 - 82.0 % | [facility] | | | Neutrophils | | | [facility] | | | [facility] | [facility] | | | [facility] | [facility] - | | | | | | LABORATORY | | + + + + + + | % | 22.1 | 20.0 - 45.0 % | [facility] | | | Lymphocytes | | | [facility] | | | [facility] | [facility] | | | | | | [facility] - | | | | | | LABORATORY | | + + + + + + | % Monocytes | 9.7 | 4.0 - 12.0 % | [facility] [...] + + + | % Basophils | 1.0 | 0.0 - 1.0 % | [facility] | [facility] | | | | | [facility] - | | | | | | LABORATORY | | + + + + + + | Absolute | 2.00 | 1.80 - 8.50 | [facility] | [...] + | [facility] | [address] | [place] | [phone] | | [facility] | | [address] | | | - LABORATORY | | | | + + + + + Comprehensive Metabolic Panel (09/05/2016 8:24 AM PST) + + + + + [...] + + + | Anion Gap | 9 | 3 - 16 mmol/L | [facility] [...] + + + + | BUN | 20 (H) | 7 - 18 mg/dL | [facility] | | | | [...] | | | FILTRATION | mL/min/1.73m2 | [facility] | | | [facility] | RATE,ESTIMATED | | MEDICAL | | | | mL/min/1.65k7Bklx than | | CENTER - | | [...] | 9.5 | 8.3 - 10.5 | [facility] | | | | | mg/dL | [facility] | | | | | | [facility] | | | | | | CENTER - | | | | | | LABORATORY | | + + + + + + | Albumin | 3.5 | 3.2 - 5.0 g/dL | [facility] | | | | | | [facility] | | | | | | [facility] | | | | | | [facility] - | | | | | | LABORATORY | | + + + + + + | Bilirubin | 0.4Comment: This is an | 0.1 - 1.5 mg/dL | [facility] | | | Total | appended report. These | | . [facility] | | | | results have [...] + + + + | AST | 20Comment: This is an | 10 - 42 [...] + + + + | ALT | 20Comment: This is an | 6 - 45 [...] + + + + | Alkaline | 43Comment: This is an | 40 - 110 [...] + + + + | BUN/Creatin | 22.2 | | [facility] | | | ine [...] | + + + + + | [facility] | [address] | [place] | [phone] | | [facility] | | [address] | | | - LABORATORY | | | | + + + + + Lactate Dehydrogenase (09/05/2016 8:24 AM PST) + +-------+ + + + | Component | Value | Ref Range | Performed | Pathologist | | | | | At | Signature | + +-------+ + + + | LDH TOTAL | 152 | 91 - 180 U/L | [facility] | | | | | | [facility] [...] + | [facility] | [address] | [place] | [phone] | | [facility] | | [address] | | | - LABORATORY | | | | + + + + + Ferritin (09/05/2016 8:24 AM PST) + +-------+ + + + | Component | Value | Ref Range | Performed | Pathologist | | | | | At | Signature | + +-------+ + + + | FERRITIN | 272 | 24 - 366 ng/mL | [facility] | | | | | [...] ST. | [address] | [place] | [phone] | | [facility] | | [address] | | | - LABORATORY | | | | + + + + + Iron and Transferrin (09/05/2016 8:24 AM PST) + + + + + + | Component | Value | Ref Range | Performed | Pathologist | | | | | At | Signature | + + + + + + | Iron | 68 | 50 - 160 ug/dL | [facility] | | [facility] | | [facility] | [facility] | | | | | | [facility] - | | | | | | LABORATORY | | + + + + + + | TRANSFERRIN | 214.4 (L) | 240.0 - 480.0 | [facility] | | | | | mg/dL | [facility] | [facility] | | [facility] | [facility] | | | | | | C[facility] - | | | | | | LABORATORY | | + + + + + + | TIBC | 300 | 235 - 425 ug/dL | [facility] | | | [facility] | | | [facility] | [facility] | | | | | | [facility] - | | | | | | LABORATORY | | + + + + + + | % | 22.7 | 20.0 - 55.0 % | [facility] | | | SATURATION | | | [facility] | | [...] ST. | [address] | [place] | [phone] | | [facility] | | [address] | | | - LABORATORY | | [...] | acetaminophen (TYLENOL) tablet | Given | 09/05/20 | 650 mg | | | | 650 mg 650 mg, Oral, ONCE, Tue | | 16 9:47 | | | | | 09/05/16 at 1000, For 1 dose, | | AM PST | | | | | Give 30 minutes prior to | | | | | | | riTUXimab., | | | | | | + +--------+ +--------+------+------+ +---+---+ | | | +---+---+ + +---------+ + +-------+---+ | cyclophosphamide (CYTOXAN) | New Bag | 09/05/20 | 2,000 mg | 350 | | | 2,000 mg in sodium chloride 0.9% | | 16 2:57 | | mL/hr | | | 250 [...] | | | over 60 Minutes, ONCE, Tue | | | | | | | 09/05/16 at 1500, For 1 dose, | | | | | | | Chemotherapy: Use appropriate | | | | | | | handling precautions., | | | | | | + +---------+ + +-------+---+ +---+---+ | | | +---+---+ + +-------+ +-------+---+---+ | diphenhydrAMINE (BENADRYL) | Given | 09/05/20 | 25 mg | | | | injection 25 mg 25 mg, | | 16 9:47 | | | | | Intravenous, ONCE, 09/05/16 | | AM PST | | | | | at 1000, For 1 dose | | | | | | + +-------+ +-------+---+---+ +---+---+ | | | +---+---+ + +---------+ +--------+-------+---+ | DOXOrubicin (ADRIAMYCIN) 133 mg | New Bag | 09/05/20 | 133 mg | 633 | | | in sodium chloride 0.9% 250 mL | | 16 2:21 | | mL/hr | | | chemo infusion 133 mg (50 mg/m2 | | PM PST | | | | | | | | | | | | 2.66 m2 Treatment plan recorded | | | | | | | BSA), Intravenous, Administer | | | | | | | over 30 Minutes, ONCE, Tue | | | | | | | 09/05/16 at 1430, For 1 dose, | | | | | | | Chemotherapy: Use appropriate | | | | | | | handling precautions. Vesicant. | | | | | | | Protect from light., | | | | | | + +---------+ +--------+-------+---+ +---+---+ | | | +---+---+ + +---------+ +--------+-------+---+ | fosaprepitant (EMEND) 150 mg in | New Bag | 09/05/20 | 150 mg | 450 | | | sodium chloride 0.9% 150 mL IVPB | | 16 10:18 | | mL/hr | | | 150 mg, Intravenous, Administer | | AM PST | | | | | over 20 Minutes, ONCE, Tue | | | | | | | 09/05/16 at 1015, For 1 dose, Do | | | | | | | not shake bag. Administer prior | | | | | | | to chemotherapy., | | | | | | + +---------+ +--------+-------+---+ +---+---+ | | | +---+---+ + +-------+ +-------+---+---+ | heparin 100 units/mL flush | Given | 09/05/20 | 500 | | | | injection 500 Units 500 Units (5 | | 16 4:04 | Units | | | | mL), Intracatheter, PRN, Line | | PM PST | | | | | Care, Starting Sun09/05/16 at | | | | | | | 0938 | | | | | | + +-------+ +-------+---+---+ +---+---+ | | | +---+---+ + +---------+ +---+-------+---+ | ondansetron (ZOFRAN) 8 mg, | New Bag | 09/05/20 | | 204 | | | dexamethasone (DECADRON) 4 mg in | | 16 9:55 | | mL/hr | | | sodium chloride 0.9% 50 mL IVPB | | AM PST | | | | | Intravenous, Administer over 16 | | | | | | | Minutes, ONCE, Sun09/05/16 at | | | | | | | 1000, For 1 dose | | | | | | + +---------+ +---+-------+---+ +---+---+ | | | +---+---+ + +---------+ + +---+---+ | riTUXimab (RITUXAN) 1,000 mg in | New Bag | 09/05/20 | 1,000 mg | | | | sodium chloride 0.9% 1,000 mL | | 16 10:44 | | | | | infusion 1,000 mg (rounded from | | AM PST | | | | | 997.5 mg = 375 mg/m2 | | | | | | | 2.66 m2 Treatment plan recorded | | | | | | | BSA), Intravenous, ONCE, Tue | | | | | | | 09/05/16 at 1030, For 1 dose, | | [...] (ONCOVIN) 2 mg in | Given | 12/13/20 | 2 mg | 150 | | | sodium chloride 0.9% 25 mL chemo | | 16 2:08 | | mL/hr | | | infusion 2 mg, Intravenous, | | PM PST | | | | | Administer over 10 Minutes, ONCE, | | | | | | | 09/05/16 at 1400, For 1 | | | [...]
--- OUTSIDE RECORDS SUMMARY | ~2019-09-27 | XMS | Encounter Summary ---
Demographics + + + | Address | [address] | | | [place] [address] | + + + | Home Phone | | + + + | Preferred Language | Unknown | + + + | Marital Status | | + + + | Jew Affiliation | 1013 | + + + | Race | Unknown | + + + | Ethnic Group | Unknown | + + + Author + + + | Author | [facility] | | | and [place] | + + + | Organization | [facility] | | | [...] [place] | | | | | [address] | | + + + + + Care Team Providers + +------+ + | Care It Trainer Name | Role | Phone | + [...] + + | Closed | Specialty | Physical | Diagnoses | | OP ST | | | Services | Therapy | Lymphedema | Mohamud, | ELOISE | | | Required | | of left | Joaquim Benson, | HOSPITAL | | | | | lower | MD [address] | | | | | extremity | [address] | [address]VE | | | | | | [place], | [place], [place] | | | | | | [place] [address] | [address] | | | | | | Phone: | Phone: | | | | | | [phone] | [phone] | | | | | | Fax: | Fax: | | | | | | [phone] | [phone] | +--------+ + + + + + Reason for Visit + + + | Reason | Comments | + + + | Follow-up | | + + + Encounter Details +--------+ + + + + | Date | Type | Department | Care Team | Description | +--------+ + + + + | 01/01/ | Hospital | [facility] | Mohamud, | Lymphedema of left | | 2017 | Encounter | [facility] | Joaquim Benson MD [address] | lower extremity | | | | [facility] [address] [place] | (Primary Dx); | | | | [address] [place] | [place] [address] | Diffuse large B-cell | | | | [place] [address] | [phone] | lymphoma of | | | | [phone] | | intra-abdominal | | | | [...] + + + | Blood Pressure | 140/90 | 01/01/2017 8:59 AM | | | | | PDT | | + + + + + | Pulse | 56 | 01/01/2017 8:59 AM | | | | | PDT | | + + + + + | Temperature | 35.9 C (96.7 F) | 01/01/2017 8:59 AM | | | | | PDT | | + + + + + | Respiratory Rate | 16 | 01/01/2017 8:59 AM | | | | | PDT | | + + + + + | Oxygen Saturation | 95% | 01/01/2017 8:59 AM | | | | | PDT | | + + + + + | Inhaled Oxygen | - | - | | | Concentration | | | | + + + + + | Weight | 144.7 kg (319 lb 0.1 | 01/01/2017 8:59 AM | | | | oz) | PDT | | + + + + + | Height | - | - | | + + + + + | Body Mass Index | 40.96 | 07/18/2016 4:16 PM | | | [...] encounter Progress Notes Joaquim Tejeda MD - 01/01/2017 8:44 AM PDTFormatting of this note might be differe nt from the original. Hematology/Oncology Progress Note [facility] [place] Pt. Name/Age/: Joaquim Sanchez Jr. 66 y.o. 1950 Med. Record Number: [id number] Date of admission: 01/01/2017 Identifying Statement: Joaquim Sanchez Jr. is a 66 y.o. male from [address] [address] with Mixed Diffuse Large B-Cell/Follicular Lymphoma. The patient chart and medications were [...] lower extremity. CT abdomen/Pelvis with contrast 2016 ([facility]). Ex tensive periaortic lymphadenopathy (1.8 cm and 2.1 cm respectively), extensive adenopathy ex tending out along the left common iliac artery and encasing the left external iliac artery ( 4.4 cm) with compromise of the left external iliac vein. 2. Open laparotomy with LEFT ileal retroperitoneal lymph node biopsy ([facility], [facility]) June 242015. Specimen #[id number] ([facility]); Diffuse Large B-Cell lymph raciel, [...] September 04, 2016. 10. CT Abdomen/Pelvis at [facility], [place] on September 12, 2016; Positive Response [...] (PRIMA protocol). 14. Repeat CT scan at [place], [place] on December 01, 2016 demonstrated [facility] left iliac lymph node chain adenopathy. 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 Interval history is notable for the fact that "Rios" stopped cytotoxic chemotherapy early and crossed over to maintenance rituxumab November 07, 2016. 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 Review of systems is notable for: Fatigue is unchanged, nausea (without emesis) is unchanged, night sweats have resolved and have not recurred, dysphagia has resolved and not recurred, dyspepsia has resolved and not r ecurred, numbness in the fingers has resolved, but numbness in the heels persists, dysuria h as resolved, Insomnia is only occasional, decreased mental acuity is unchanged. The separa tion of the toenails from the nailbeds culminated in these nails being extracted by his podi atri and these are beginning to grow back. Headaches have resolved and have not recurred, decreased visual acuity is resolved. Chest pain and palpitations, and dyspnea on exertion ar e resolved. Complaints of rhinorrhea and epiphora are unchanged. Clinical exam is notable for stable left lower extremity lymphedema. Laboratory exam is notable for grade 1 leukopenia and neutropenia. Assessment; Mixed diffuse large B-cell/follicluar lymphoma. Plan; Extended 25 minute office encounter with Rios and Mara discussing chief complai nt of persistent Left lower extremity lymphedema and grade 1 leukopenia/neutropenia. Case wa s discussed with America Marie PharmD and Patricia Lopez RN. I recommended ongoing maintenanc e rituximab every two months, Since Rios cannot tolerate prolonged positioning for PET/CT scan, we will rely on progress CT scan to assess whether or not the soft tissue abnormality in the left iliac lymph node region represents treated or active cancer. I recommended manu al therapy for complaints of persistent Left lower extremity lymphedema. Lymphedema of left lower extremity Current Assessment & Plan Referral for manual therapy. Review of Systems: Constitutional: Reports energy level is fair to good- "not what I would like it to be". De nies high fevers, shaking chills, anorexia, nausea, vomiting, weight loss, or night sweats. Appetite without changes. Ear, Nose, Mouth, Throat: Denies odynophagia, dysphagia, or tinnitus. Cardiovascular: Reports dyspnea on exertion intermittently. Reports chest pain that only oc curred 1 time in past few weeks- is unsure of when, duration, intensity. Denies shortness o f breath, palpitations or orthopnea. Respiratory: Denies cough, hemoptysis, or sputum production. Gastrointestinal: Denies abdominal pain, constipation, diarrhea, melena, or bright red bloo d per rectum. Genitourinary: Denies hematuria or dysuria. Musculoskeletal: Reports joint aches generalized- shoulders, knees, joints near toes, left heal is sore when standing up. Neurologic: Reports numbness/tingling in fingers and toes is decreased- "feels much better" . Denies headache or visual changes. Endocrine: Reports left leg swelling continues. Denies heat/cold intolerance. Hematologic: Denies spontaneous bruising or bleeding. Integumentary: Denies rash, wounds or other skin concerns. Pain: Reports pain intermittently in left leg and joints mentioned above- rates at 4/10 oth erwise just aching and rates at 1/10. Currently using essential oils and rarely takes pain m edication for this. Note: Here for follow up, labs and 4 hour treatment. My chart: active Scheduled Medications: [...] tablet Take 50 mcg by mouth Daily. gabapentin (NEURONTIN) 100 mg [...] as needed (Nausea/V omiting). 20 tablet 5 ondansetron (ZOFRAN) 8 MG tablet Take 1 tablet by mouth 2 times daily. For two days aft er each chemo and then may take one tab every 8 hours if needed for nausea 30 tablet 3 traMADol (ULTRAM) 50 mg [...] PRN Joaquim robles MD 500 Units at 01/01/17 1404 Allergies: Allergy: Allergies Allergen Reactions Codeine "wires [...] RCA Internal jugular bard port-a-cath Right 08/11/2017 [facility] Social History Social History Marital Status: Spouse [...] left lower extremity Objectives: Temp: 35.9 C (96.7 F) BP: 140/90 mmHg Pulse: 56 Resp: 16 SpO2: 95 % on Min/Max Temp past 24 hours:Temp Av.9 C (96.7 F) Min: 35.9 C (96.7 F) Max: 3 5.9 C (96.7 F) No intake or output data in the 24 hours ending 01/01/17 1808 Wt. Admission: Weight: (!) 144.7 kg (319 lb 0.1 oz) Wt. Current: Weight: (!) 144.7 kg ( 319 lb 0.1 oz) Wt Readings from Last 3 Encounters: 01/01/17 144.7 kg (319 lb 0.1 oz) 12/05/16 144.516 kg (318 lb 9.6 oz) 11/07/16 140.887 kg (310 lb 9.6 oz) Body mass index is 40.94 kg/(m^2). Physical Exam: General: The patient is alert [...] Am. J. Clin. Oncol.: Davida Ma., Rebel, RChristianH., Andie Menezes., Michael Trejo., Michael, TDusty., Dara, [...] JOAQUIM SANCHEZ JR. ( ) as of 01/01/2017 18:09 Ref. Range 01/01/2017 08:13 WBC Latest Ref Range: 4.0-11.0 K/uL 2.4 (LL) RBC: Latest Ref Range: 4.30-5.70 M/uL 4.24 (L) Hgb Latest Ref Range: 13.5-18.0 g/dL 12.4 (L) Hct, Final Latest Ref Range: 40.0-51.0 % 36.8 (L) MCV Latest Ref Range: 83.0-101.0 fL 86.7 MCH Latest Ref Range: 28.0-35.0 pg 29.2 MCHC Latest Ref Range: 32.0-36.0 g/dL 33.7 RDW-CV Latest Ref Range: <15.0 % 15.5 (H) Platelet Count Latest Ref Range: 140-440 K/uL 101 (L) MPV Latest Units: fL 9.1 Absolute Neutrophils Latest Ref Range: 1.80-8.50 K/uL 1.50 (L) Absolute Lymphocytes Latest Ref Range: 0.60-3.20 K/uL 0.50 (L) Absolute Monocytes Latest Ref Range: 0.00-1.00 K/uL 0.20 Absolute Eosinophils Latest Ref Range: 0.00-0.40 K/uL 0.10 Absolute Basophils Latest Ref Range: 0.00-0.10 K/uL 0.00 % Neutrophils Latest Ref Range: 45.0-82.0 % 62.5 % Lymphocytes Latest Ref Range: 20.0-45.0 % 22.5 % Monocytes Latest Ref Range: 4.0-12.0 % 9.5 % Eosinophils Latest Ref Range: 0.0-5.0 % 4.9 % Basophils Latest Ref Range: 0.0-1.0 % 0.6 NA Latest Ref Range: 136-149 mmol/L 144 K Latest Ref Range: 3.5-5.1 mmol/L 3.8 Chloride Latest Ref Range: 98-109 mmol/L 110 (H) Carbon dioxide Latest Ref Range: 24-31 mmol/L 25 ANION GAP Latest Ref Range: 3-16 mmol/L 9 GLUCOSE Latest Ref Range: 70-109 mg/dL 112 (H) BUN Latest Ref Range: 7-18 mg/dL 14 Creatinine Latest Ref Range: 0.60-1.30 mg/dL 0.89 BUN/CREA Unknown 15.7 ALBUMIN Latest Ref Range: 3.2-5.0 g/dL 3.5 [...] (SGOT) (REF) Latest Ref Range: 10-42 U/L 29 LDH TOTAL Latest Ref Range: 91-180 U/L 152 BILIRUBIN TOTAL Latest Ref Range: 0.1-1.5 mg/dL 0.5 GLOBULIN Latest Ref Range: 2.1-3.8 g/dL 2.1 Pharmacovigilance: Results for JOAQUIM SANCHEZ JR. ( [...] 2006 , Vol. 47, No. 6, pp 9519-5333. In the first article, an observational study [...] observational study, by Marques et al from [facility] th at reports neutropenia developed in [...] Medications No medications on file Discontinued Medications CARBIDOPA-LEVODOPA (SINEMET) 10-100 MG PER TABLET OMEPRAZOLE (PRILOSEC) 20 MG CAPSULE Take 20 mg by mouth Daily. PREDNISONE (DELTASONE) 20 MG TABLET 5 pills for 5 days after chemo. SENNOSIDES (MP SENALAX PO) Take 2 capsules by mouth Daily. Procedure note: Day 1, Rituxan every 2 months x 2 years # 2 (56-day cycle) Completed; Released on 7; Originally planned for 01/01/2017 Labs Lactate Dehydrogenase STAT, ONE TIME, 01/01/17 at 0814, For 1 occurrence OrderHistory Comprehensive Metabolic Panel STAT, ONE TIME, 01/01/17 at 0814, For 1 occurrence OrderHistory CBC with Differential STAT, ONE TIME, Sun01/01/17 at 0814, For 1 occurrence OrderHistory Nursing Orders OK to proceed with chemotherapy (Not Released) 01/01/17 -Discussed with clinical pharmacist America Marie, blood counts reviewed, team ag brittni that it is save and appropriate to proceed with maintenance rituximab today. INFORMED CONSENT: The nature and character [...] appr opriate to proceed with treatment with rituximab.JOAQUIM TEJEDA MD. OrderHistory Plans for discharge (Not Released) QFU CBC,CMP,LDH Port DRAW IN 2 months with 4 hour infusion. OrderHistory Pre-Medications acetaminophen (TYLENOL) tablet 650 mg 650 mg, Oral, ONCE, Sun01/01/17 at 1045, For 1 dose Give 30 minutes prior to riTUXimab. OrderHistory famotidine (PEPCID) injection 20 mg 20 mg, Intravenous, ONCE, Sun01/01/17 at 1045, For 1 dose Prior to administration, prepare a 20 mg dose by diluting 2 mL of famotidine 10 mg/mL to 10 mL with normal saline. OrderHistory CHEMOTHERAPY riTUXimab (RITUXAN) 1,000 mg in sodium chloride 0.9% 1,000 mL infusion 1,000 mg (rounded from 997.5 mg = 375 mg/m2 2.66 m2 Treatment plan actual BSA), Intr avenous, ONCE, Sun01/01/17 at 1115, For 1 dose Initial infusion: Start at [...] (5 mL), Intercatheter, PRN, Line Care, Starting Sun01/01/17 at 1017 Order History PRN Medications LORazepam (ATIVAN) injection [...] activate code blue and notify MD. OrderHisto cherelle TEJEDA MD Portions of this chart may have been created with [employer] recognition software. Occasi onal wrong-word or sound-alike [...] | | | | | [place], [place] | | | | | | [address] | | | | | | | | +--------+---------+ + + + + + +--------+ + + | Name | Type | Priori | Associated Diagnoses | Order Schedule | | | | ty | | | + + +--------+ + + | Ambulatory referral | Outpatient | Routin | Lymphedema of left | Ordered: 01/01/2017 | | to Physical Therapy | Referral | e | lower extremity | | + + +--------+ + + documented as of this encounter Visit Diagnoses + + | Diagnosis | + + | Lymphedema of left lower extremity - Primary | + + | Diffuse large B-cell lymphoma of intra-abdominal lymph nodes (HCC) Other malignant | | lymphomas of intra-abdominal lymph nodes | + + documented in this encounter
--- OUTSIDE RECORDS SUMMARY | ~2019-09-27 | XMS | Encounter Summary ---
Demographics + + + | Address | [address] | | | [place] [address] | + + + | Home Phone | | + + + | Preferred Language | Unknown | + + + | Marital Status | | + + + | Alevism Affiliation | 1013 | + + + | Race | Unknown | + + + | Ethnic Group | Unknown | + + + Author + + + | Author | [facility] | | | and [place] | + + + | Organization | [facility] | | | and [...] [place] | | | | | [address] | | + + + + + Care Team Providers + +------+ + | Care Supervisor Steno Pool Name | Role | Phone | + [...] large b-cell | Gerber Benson, | [address] | | | | | lymphoma, | MD [address] | [place], | | | | | intra-abdomi | [address] | [place] [address] | | | | | nal lymph | [place], | Phone: | | | | | nodes (HCC) | [place] [address] | [phone] | | | | | Procedures | Phone: | Fax: | | | | | [place] | [phone] | [phone] | | | | | RITUXIMAB | Fax: | | | | | | INJECTION, | [phone] | | | | | | 100 MG AK | | | | | | | MEPERIDINE | | | | | | | HYDROCHL | | | | | | | /100 MG AK | | | | | | | IV INFUSION, | | | | | | | HYDRATION, | | | | | | | 31-60 MIN | | | | | | | AK IV | | | | | | | INFUSION, | | | | | | | HYDRATION, | | | | | | | EA ADD HOUR | | | | | | | AK | | | | | | | ONDANSETRON | | | | | | | HCL | | | | | | | INJECTION, 1 | | | | | | | MG AK | | | | | | | DEXAMETHASON | | | | | | | E SODIUM | | | | | | | PHOS, 1 MG | | | | | | | AK | | | | | | | FOSAPREPITAN | | | | | | | T INJECTION, | | | | | | | 1 MG AK | | | | | | | PREDNISONE | | | | | | | IR OR DR | | | | | | | ORAL 1MG AK | | | | | | | | | | | | | | CYCLOPHOSPHA | | | | | | | MIDE 100 MG | | | | | | | INJ AK | | | | | | | DOXORUBICIN | | | | | | | HCL | | | | | | | INJECTION, | | | | | | | 10 MG AK | | | | | | | VINCRISTINE | | | | | | | SULFATE 1 MG | | | | | | | INJ AK | | | | | | | DIPHENHYDRAM | | | | | | | INE HCL | | | | | | | INJECTIO, 50 | | | | | | | MG AK | | | | | | | METHYLPREDNI | | | | | | | SOLONE | | | | | | | INJECTION, | | | | | | | 125 MG AK | | | | | | | DEXAMETHASON | | | | | | | E SODIUM | | | | | | | PHOS, 1 MG | | | | | | | AK | | | | | | | INJECTION, | | | | | | | PEGFILGRASTI | | | | | | | M 6MG AK | | | | | | | NORMAL | | | | | | | SALINE | | | | | | | SOLUTION | | | | | | | INFUS, 500 | | | | | | | ML AK | | | | | | | NORMAL | | | | | | | SALINE | | | | | | | SOLUTION | | | | | | | INFUS, 250 | | | | | | | ML AK | | | | | | | STERILE | | | | | | | WATER/SALINE | | | | | | | , 10 ML AK | | | | | | | CHEMOTHER, | | | | | | | IV PUSH,EA | | | | | | | ADD DRUG AK | | | | | | | CHEMOTHER, | | | | | | | IV INFUSION, | | | | | | | 1 HR AK | | | | | | | CHEMOTHER, | | | | | | | IV INFUSION, | | | | | | | EA HR AK | | | | | | | CHEMOTHER,NO | | | | | | | N-HORMONE | | | | | | | ANTI-NEOPL, | | | | | | | SUB-Q/IM AK | | | | | | | [...] + + + + | 01/01/ | [facility] | [facility] | Mohamud, | Diffuse large B-cell | | 2017 | Encounter | MED CTR CHEMO | Gerber Benson MD [address] | lymphoma of | | | | INFUSION [address] | [address] [place] | intra-abdominal | | | | [place], | [place] [address] | lymph nodes (HCC) | | | | [place] [address] | [phone] | | | | | [phone] | | | +--------+ + + + [...] documented as of this encounter Progress Notes Areli Shabazz RN - 01/01/2017 2:08 PM PDTDischarged to home in satisfactory condition , accompanied by family. documented in this encounter Plan of Treatment +--------+---------+ + + + | Date | Type | Specialty | Care Team | Description | +--------+---------+ + + + | 10/01/ | Office | Cardiology | Karen Bansal, | | | 2019 | Visit | | MD Patricia JOHNSON | | | | | | [place] | | | | | | [address] | | | | | | | | +--------+---------+ + + + documented as of this encounter Procedures + +--------+ + + + | Procedure Name | Priori | Date/Time | Associated Diagnosis | Comments | | | ty | | | | + +--------+ + + + | CBC WITH | STAT | 01/01/2017 | Diffuse large | Results for this | | DIFFERENTIAL | | 8:13 AM | B-cell lymphoma of | procedure are in the | | | | PDT | intra-abdominal | results section. | | | | | lymph nodes (HCC) | | + +--------+ + + + | LACTATE | STAT | 01/01/2017 | Diffuse large | Results for this | | DEHYDROGENASE | | 8:13 AM | B-cell lymphoma of | procedure are in the | | | | PDT | intra-abdominal | results section. | | | | | lymph nodes (HCC) | | + +--------+ + + + | COMPREHENSIVE | STAT | 01/01/2017 | Diffuse large | Results for this | | METABOLIC PANEL | | 8:13 AM | B-cell lymphoma of | procedure are in the | | | | PDT | intra-abdominal | results section. | | | | | lymph nodes (HCC) | | + +--------+ + + + documented in this encounter Results CBC with Differential (01/01/2017 8:13 AM PDT) + + + + + + | Component | Value | Ref Range | Performed | Pathologist | | | | | At | Signature | + + + + + + | WBC | 2.4 (LL)Comment: | 4.0 - 11.0 K/uL | [facility] | | | | Critical Result called | | [facility] | | | | to and read back by | | MEDICAL | | | | Margarette Iqbal on | | CENTER - | | | | 01/01/2017 at 9:49 by | | LABORATORY | | | | Abdoul Sage. | | | | + + + + + + | RBC | 4.24 (L) | 4.30 - 5.70 | [facility] | | | | | M/uL | [facility] | | | | | | MEDICAL | | | | | | CENTER - | | | | | | LABORATORY | | + + + + + + | Hemoglobin | 12.4 (L) | 13.5 - 18.0 | [facility] [...] + + + + | MCV | 86.7 | 83.0 - 101.0 fL | [facility] | | | | | | [facility] | | | | | | MEDICAL | | | | | | CENTER - | | | | | | LABORATORY | | + + + + + + | MCH | 29.2 | 28.0 - 35.0 pg | [facility] | | | | | | [facility] | | | | | | [facility]ICAL | | | | | | CENTER - | | | | | | LABORATORY | | + + + + + + | MCHC | 33.7 | 32.0 - 36.0 | [facility] | | | | | g/dL | [facility] | | | | | | MEDICAL | | | | | | CENTER - | | | | | | LABORATORY | | + + + + + + | RDW-CV | 15.5 (H) | <15.0 % | [facility] | [...] + + + + | % | 22.5 | 20.0 - 45.0 % | [facility] | | | Lymphocytes | | | [facility] | | | | | | MEDICAL | | | | | | CENTER - | | | | | | LABORATORY | | + + + + + + | % Monocytes | 9.5 | 4.0 - 12.0 % | [facility] | | | | | | [facility] | | | | | | [facility]ICAL | | | | | | CENTER - | | | | | | LABORATORY | | + + + + + + | % | 4.9 | 0.0 - 5.0 % | [facility] | | | Eosinophils | | | [facility] | | | | | | MEDICAL | | | | | | CENTER - | | | | | | LABORATORY | | + + + + + + | % Basophils | 0.6 | 0.0 - 1.0 % | [facility] | | | | | [...] + + + + | Absolute | 0.50 (L) | 0.60 - 3.20 | [facility] | [...] [address] | [place] | [phone] | | [facility] | | [address] | | | - LABORATORY | | | | + + + + + Comprehensive Metabolic Panel (01/01/2017 8:13 AM PDT) + + + + + + | Component | Value | Ref Range | Performed | Pathologist | | | | | At | Signature | + + + + + + | Na | 144 | 136 - 149 | [facility] | [...] + + + + | Cl | 110 (H) | 98 - 109 mmol/L | [facility] | | | | | | [facility] | | | | | | MEDICAL | | | | | | CENTER - | | | | | | LABORATORY | | + + + + + + | CO2 | 25 | 24 - 31 mmol/L | [facility] [...] + + + + | Glucose | 112 (H) | 70 - 109 mg/dL | [facility] | | | | | | [facility] | | | | | | MEDICAL | | | | | | CENTER - | | | | | | LABORATORY | | + + + + + + | BUN | 14 | 7 - 18 mg/dL | [facility] | | | | | | [facility] | | | | | | MEDICAL | | | | | | CENTER - | | | | | | LABORATORY | | + + + + + + | Creatinine | 0.89 | 0.60 - 1.30 | [facility] | | | | | mg/dL | [facility] | | | | | | MEDICAL | | | | | | CENTER - | | | | | | LABORATORY | | + + + + + + | eGFR if not | >60Comment: GLOMERULAR | >=60 | [facility] | | | | FILTRATION | mL/min/1.73m2 | [facility] | | | TONGAN | RATE,ESTIMATED | | MEDICAL | | | | mL/min/1.11p6Thxk than | | CENTER - | | [...] + + + + | Calcium | 9.4 | 8.3 - 10.5 | [facility] | [...] + + + + | Bilirubin | 0.5 | 0.1 - 1.5 mg/dL | [facility] [...] + + + + | AST | 29 | 10 - 42 U/L | [facility] | | | | | | [facility] | | | | | | MEDICAL | | | | | | CENTER - | | | | | | LABORATORY | | + + + + + + | ALT | 27 | 6 - 45 U/L | [facility] | | | | | | [facility] | | | | | | MEDICAL | | | | | | CENTER - | | | | | | LABORATORY | | + + + + + + | Alkaline | 50 | 40 - 110 U/L | [facility] [...] + + + + | BUN/Creatin | 15.7 | | [facility] | | | ine [...] [address] | [place] | [phone] | | [facility] | | [address] | | | - LABORATORY | | | | + + + + + Lactate Dehydrogenase (01/01/2017 8:13 AM PDT) + +-------+ + + + | Component | Value | Ref Range | Performed | Pathologist | | | | | At | Signature | + +-------+ + + + | LDH TOTAL | 152 | 91 - 180 U/L | [facility] | | | | | [...] + + + + + | ANASTASIA CHAPMAN. | [address] | [place] | [phone] | | [facility] | | [address] | | | - LABORATORY | | [...] | acetaminophen (TYLENOL) tablet | Given | 01/02/20 | 650 mg | | | | 650 mg 650 mg, Oral, ONCE, Sun | | 17 10:24 | | | | | 01/01/17 at 1045, For 1 dose, Give | | AM PDT | | | | | 30 minutes prior to riTUXimab., | | | | | | + +--------+ +--------+------+------+ +---+---+ | | | +---+---+ + +-------+ +-------+---+---+ | famotidine (PEPCID) injection | Given | 01/02/20 | 20 mg | | | | 20 mg 20 mg, Intravenous, ONCE, | | 17 10:24 | | | | | 01/01/17 at 1045, For 1 dose, | | AM PDT [...] heparin 100 units/mL flush | Given | 01/02/20 | 500 | | | | injection 500 Units 500 Units (5 | | 17 2:04 | Units | | | | mL), Intracatheter, PRN, Line | | PM PDT | | | | | Care, Starting 01/01/17 at | | | | | | | 1017 | | | | | | + +-------+ +-------+---+---+ +---+---+ | | | +---+---+ + +---------+ + +---+---+ | riTUXimab (RITUXAN) 1,000 mg in | New Bag | 01/02/20 | 1,000 mg | | | | sodium chloride 0.9% 1,000 mL | | 17 10:42 | | | | | infusion 1,000 mg (rounded from | | AM PDT | | | | | 997.5 mg = 375 mg/m2 | | | | | | | 2.66 m2 Treatment plan recorded | | | | | | | BSA), Intravenous, ONCE, Mon | | | | | | | 01/01/17 at 1115, For 1 dose, | | | | [...]
--- OUTSIDE RECORDS SUMMARY | ~2019-09-27 | XMS | Encounter Summary ---
Demographics + + + | Address | [address] | | | [place] [address] | + + + | Home Phone | | + + + | Preferred Language | Unknown | + + + | Marital Status | | + + + | Spiritism Affiliation | 1013 | + + + | Race | Unknown | + + + | Ethnic Group | Unknown | + + + Author + + + | Author | [facility] | | | and [place] | + + + | Organization | [facility] | | [...] [place] | | | | | [address] | | + + + + + Care Team Providers + +------+ + | Care Extrusion Line Operator Name | Role | Phone | + +------+ + | Earle Chacko MD | PCP | | + +------+ + Encounter Details +--------+ + + + + | Date | Type | Department | Care Team | Description | +--------+ + + + + | 08/13/ | Hospital | [facility] | Miguel Zuniga | Diffuse large B-cell | | 2017 | Encounter | [facility] | MD Gerber [address] | lymphoma of | | | | ONCOLOGY CLINIC [address] | [address] [place] | intra-abdominal | | | | [address] [place] | [place] [address] | lymph nodes (HCC) | | | | [place] [address] | [phone] | (Primary Dx) | | | | [phone] | | | +--------+ + + + [...] 2. 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
--- OUTSIDE RECORDS SUMMARY | ~2019-09-27 | XMS | Encounter Summary ---
Demographics + + + | Address | [address] | | | [place] [address] | + + + | Home Phone | | + + + | Preferred Language | Unknown | + + + | Marital Status | | + + + | Mormonism Affiliation | 1013 | + + + [...] [place] | | | | | [address] | | + + + + + Care Team Providers + +------+ + | Care Micro Photographer Name | Role | Phone | + [...] large b-cell | Gerber Benson, | [address] [place] | | | | | lymphoma, | MD [address] | [place], | | | | | intra-abdomi | [address] | [place] [address] | | | | | nal lymph | [place], | Phone: | | | | | nodes (HCC) | [place] [address] | [phone] | | | | | Procedures | Phone: | Fax: | | | | | [place] | [phone] | [phone] | | | | | INJECTION, | Fax: | | | | | | FAMOTIDINE, | [phone] | | | | | | 20 MG MI | | | | | | | RITUXIMAB | | | | | | | INJECTION, | | | | | | | 100 MG MI | | | | | | | LORAZEPAM | | | | | | | INJECTION, 2 | | | | | | | MG MI | | | | | | | MEPERIDINE | | | | | | | HYDROCHL | | | | | | | /100 MG MI | | | | | | | DIPHENHYDRAM | | | | | | | INE HCL | | | | | | | INJECTIO, 50 | | | | | | | MG MI | | | | | | | METHYLPREDNI | | | | | | | SOLONE | | | | | | | INJECTION, | | | | | | | 125 MG MI | | | | | | | DEXAMETHASON | | | | | | | E SODIUM | | | | | | | PHOS, 1 MG | | | | | | | MI NORMAL | | | | | | | SALINE | | | | | | | SOLUTION | | | | | | | INFUS, 500 | | | | | | | ML MI | | | | | | | NORMAL | | | | | | | SALINE | | | | | | | SOLUTION | | | | | | | INFUS, 250 | | | | | | | ML MI | | | | | | | STERILE | | | | | | | WATER/SALINE | | | | | | | , 10 ML MI | | | | | | | CHEMOTHER, | | | | | | | IV PUSH,EA | | | | | | | ADD DRUG MI | | | | | | | CHEMOTHER, | | | | | | | IV INFUSION, | | | | | | | 1 HR MI | | | | | | | CHEMOTHER, | | | | | | | IV INFUSION, | | | | | | | EA HR MI | | | | | | | CHEMOTHER,NO | | | | | | | N-HORMONE | | | | | | | ANTI-NEOPL, | | | | | | | SUB-Q/IM MI | | | | | | | [...] [place] | intra-abdominal | | | | [place], | [place] [address] | lymph nodes (HCC); | | | | [place] [address] | [phone] | Lymphedema of left | | | | [phone] | | lower extremity | +--------+ + [...] | | | | | [place] | | | | | | [address] | | | | | | | [...] | | | | | M/uL | [facility] | | | | | | MEDICAL | | | | | | CENTER - | | | | | | LABORATORY | | + + + + + + | Hemoglobin | 12.8 (L) | 13.5 - 18.0 | [facility] | | | | | g/dL | [facility] | | | | [...] [address] | [place] | [phone] | | [facility] | | [address] | | | - LABORATORY | | [...] mL/min/1.73m2 | [facility] | | | [place] | RATE,ESTIMATED | | MEDICAL | | | | mL/min/1.32c0Pjqj than | | CENTER - | | [...] [address] | [place] | [phone] | | [facility] | | [address] | | | - LABORATORY | | [...] [address] | [place] | [phone] | | [facility] | | [address] | | | - LABORATORY | | [...]
--- OUTSIDE RECORDS SUMMARY | ~2019-09-27 | XMS | Encounter Summary ---
Demographics + + + | Address | [address] | | | [place] [address] | + + + | Home Phone | | + + + | Preferred Language | Unknown | + + + | Marital Status | | + + + | Gnosticist Affiliation | 1013 | + + + | Race | Unknown | + + + | Ethnic Group | Unknown | + + + Author + + + | Author | [facility] | | | and [place] | + + + | Organization | [facility] | | [...] [place] | | | | | [address] | | + + + + + Care Team Providers + +------+ + | Care Jacker Name | Role | Phone | + [...] lower | MD [address] | [address] [place] | | | | | extremity | [address] | [place], | | | | | | [place], | [place] [address] | | | | | | [place] [address] | Phone: | | | | | | Phone: | [phone] | | | | | | [phone] | Fax: | | | | | | Fax: | [phone] | | | | | | [phone] | | +--------+ + + + + + Reason for Visit + + + | Reason | Comments | + + + | Follow-up | | + + + Encounter Details +--------+ + + + + | Date | Type | Department | Care Team | Description | +--------+ + + + + | 08/24/ | Hospital | [facility] | [facility], | Diffuse large B-cell | | 2016 | Encounter | MED CTR MED[facility] | Joaquim Benson MD [address] | lymphoma of | | | | ONCOLOGY CLINIC [address] | [address] [place] | intra-abdominal | | | | [place] | [place] [address] | lymph nodes (HCC) | | | | [place] [address] | [phone] | (Primary Dx); | | | | [phone] | | Lymphedema of left | | [...] original. Hematology/Oncology Progress Note [facility] [place] Pt. Name/Age/: Joaquim Sanchez 66 y.o. 1950 Med. Record Number: [id number] Date of admission: 08/24/2016 Identifying Statement: Joaquim Sanchez is a 66 y.o. male from [address] [address] with Diffuse Large B-Cell Lymphoma. The patient [...] with LEFT ileal retroperitoneal lymph node biopsy ([place], [facility]) June 242015. Specimen #[id number] ([facility] Pathology); Diffuse Large B-Cell [...] Ma., Rebel REdita., Andie Menezes., Michael Trejo., Vy Rodriguez., Armando Diamond., Fatoumata, P .P.: [...] this chart may have been created with [employer] voice recognition software. Occasi onal wrong-word or [...] [place] | | | | | | [address] | | | | | | | [...] [address] | [place] | [phone] | | [facility] | | [address] | | | - LABORATORY | | [...] diff needed | [facility] | | | [facility] | | | [facility] | | | - LABORATORY | + + + + + + + + | Performing | Address | City/State/Zipcode | Phone Number | | Organization | | | | + + + + + | [facility] | [address] | [place] | [phone] | | [facility] | | [address] | | | - LABORATORY | | [...] | MPV | 8.9 | fL | [facility] | | | [...] | | Basophils | | K/uL | [facility] | | | | | [...] [address] | [place] | [phone] | | [facility] | | [address] | | | - LABORATORY | | [...] | | | MICROGLOBUL | Testing Performed: [facility], | ug/L | [facility] | | | [place] | [address], | | | | | | [place] [address] | | | | + + + + + + + + | Specimen | + + | Blood specimen | | (specimen) | + + + + + + + | Performing | Address | City/State/Zipcode | Phone Number | | Organization | | | | + + + + + | [facility] | [address] | [place] [address] | [phone] | + + + + + Uric Acid (08/24/2016 1:20 PM PST) + +-------+ + + + | Component | Value | Ref Range | Performed | Pathologist | | | | | At | Signature | + +-------+ + + + | Uric Acid | 4.8 | 2.6 - 7.2 mg/dL | [facility] | | | | | [...] [address] | [place] | [phone] | | [facility] | | [address] | | | - LABORATORY | | [...] | | | | | | [facility] | | | | | | MEDICAL [...] | 0.96 | 0.60 - 1.30 | [facility] | | | | | mg/dL | [facility] | | | | | | MEDICAL | | | | | | CENTER - | | | | | | LABORATORY | | + + + + + + | eGFR if not | >60Comment: GLOMERULAR | >=60 | [facility] | | | | FILTRATION | mL/min/1.73m2 | [facility] | | | [place] | RATE,ESTIMATED | | MEDICAL | | | | mL/min/1.03o1Ssfp than | | CENTER - | | [...] | 9.2 | 8.3 - 10.5 | [facility] | | | | | mg/dL | [facility] | | | | | | MEDICAL [...] [address] | [place] | [phone] | | [facility] | | [address] | | | - LABORATORY | | [...] [address] | [place] | [phone] | | [facility] | | [address] | | | - LABORATORY | | [...]
--- OUTSIDE RECORDS SUMMARY | ~2019-09-27 | XMS | Encounter Summary ---
Demographics + + + | Address | [address] | | | [place] [address] | + + + | Home Phone [...] [place] | | | | | [address] | | + + + + + Care Team Providers + +------+ + | Care Welder Repair Name | Role | Phone | + +------+ + | Earle Chacko MD | PCP | | + +------+ + Reason for Visit +--------+ + | Reason | Comments | +--------+ + | Other | | +--------+ + Encounter Details +--------+ + + + + | Date | Type | Department | Care Team | Description | +--------+ + + + + | 03/07/ | Telephone | [facility] | Mohamud, | Other | | 2018 | | MED [facility] MED[facility] | Gerber Benson MD [address] | | | | | ONCOLOGY CLINIC [address] | [address] [facility] | | | | | [address] [place] | [place] [address] | | | | | [place] [address] | [phone] | | | | | [phone] | | | +--------+ + + + [...] [place] | | | | | | [address] | | | | | | | | +--------+---------+ + + + documented as of this encounter Visit Diagnoses Not on filedocumented in this encounter"
--- OUTSIDE RECORDS SUMMARY | ~2019-09-27 | XMS | Clinical Summary ---
Demographics + + + | Address | [address] | | | [place] [address] | + + + | Home Phone | | + + + | Preferred Language | Unknown | + + + | Marital Status | Unknown | + + + | Christian Affiliation | Unknown | + + + [...] Team Providers + +------+ + | Care Motor Vehicle Or Caravan Salesperson Name | Role | Phone | + +------+ + PCP | Unavailable | + +------+ + Source Comments JOSE is fully live on both [facility] Ambulatory and [facility] InPatient.[facility] Allergies Not on File Medications Not on [...]
--- OUTSIDE RECORDS SUMMARY | ~2019-09-27 | XMS | Encounter Summary ---
Demographics + + + | Address | [address] | | | [place] [address] | + + + | Home Phone | | + + + | Preferred Language | Unknown | + + + | Marital Status | | + + + | Zoroastrianism Affiliation | 1013 | + + + | Race | Unknown | + + + | Ethnic Group | Unknown | + + + Author + + + | Author | [facility] | | | and [place] | + + + | Organization | [facility] | | [...] [place] | | | | | [address] | | + + + + + Care Team Providers + +------+ + | Care Roller Varnisher Name | Role | Phone | + [...] large b-cell | Gerber Benson, | [address] | | | | | lymphoma, | MD [address] | [place], | | | | | intra-abdomi | [address] | [place] [address] | | | | | nal lymph | [place], | Phone: | | | | | nodes (HCC) | [place] [address] | [phone] | | | | | Procedures | Phone: | Fax: | | | | | [place] | [phone] | [phone] | | | | | RITUXIMAB | Fax: | | | | | | INJECTION, | [phone] | | | | | | 100 MG PA | | | | | | | MEPERIDINE | | | | | | | HYDROCHL | | | | | | | /100 MG PA | | | | | | | IV INFUSION, | | | | | | | HYDRATION, | | | | | | | 31-60 MIN | | | | | | | PA IV | | | | | | | INFUSION, | | | | | | | HYDRATION, | | | | | | | EA ADD HOUR | | | | | | | PA | | | | | | | ONDANSETRON | | | | | | | HCL | | | | | | | INJECTION, 1 | | | | | | | MG PA | | | | | | | DEXAMETHASON | | | | | | | E SODIUM | | | | | | | PHOS, 1 MG | | | | | | | PA | | | | | | | FOSAPREPITAN | | | | | | | T INJECTION, | | | | | | | 1 MG PA | | | | | | | PREDNISONE | | | | | | | IR OR DR | | | | | | | ORAL 1MG PA | | | | | | | | | | | | | | CYCLOPHOSPHA | | | | | | | MIDE 100 MG | | | | | | | INJ PA | | | | | | | DOXORUBICIN | | | | | | | HCL | | | | | | | INJECTION, | | | | | | | 10 MG PA | | | | | | | VINCRISTINE | | | | | | | SULFATE 1 MG | | | | | | | INJ PA | | | | | | | DIPHENHYDRAM | | | | | | | INE HCL | | | | | | | INJECTIO, 50 | | | | | | | MG PA | | | | | | | METHYLPREDNI | | | | | | | SOLONE | | | | | | | INJECTION, | | | | | | | 125 MG PA | | | | | | | DEXAMETHASON | | | | | | | E SODIUM | | | | | | | PHOS, 1 MG | | | | | | | PA | | | | | | | INJECTION, | | | | | | | PEGFILGRASTI | | | | | | | M 6MG PA | | | | | | | NORMAL | | | | | | | SALINE | | | | | | | SOLUTION | | | | | | | INFUS, 500 | | | | | | | ML PA | | | | | | | NORMAL | | | | | | | SALINE | | | | | | | SOLUTION | | | | | | | INFUS, 250 | | | | | | | ML PA | | | | | | | STERILE | | | | | | | WATER/SALINE | | | | | | | , 10 ML PA | | | | | | | CHEMOTHER, | | | | | | | IV PUSH,EA | | | | | | | ADD DRUG PA | | | | | | | CHEMOTHER, | | | | | | | IV INFUSION, | | | | | | | 1 HR PA | | | | | | | CHEMOTHER, | | | | | | | IV INFUSION, | | | | | | | EA HR PA | | | | | | | CHEMOTHER,NO | | | | | | | N-HORMONE | | | | | | | ANTI-NEOPL, | | | | | | | SUB-Q/IM PA | | | | | | | [...] + + + + | 11/07/ | [facility] | [facility] | Mohamud, | Diffuse large B-cell | | 2017 | Encounter | MED CTR CHEMO | Gerber Benson MD [address] | lymphoma of | | | | INFUSION [address] | [address] [place] | intra-abdominal | | | | [place], | [place] [address] | lymph nodes (HCC) | | | | [place] [address] | [phone] | (Primary Dx); | | | | [phone] | | Lymphedema of left | | [...] by | | 0 | 09/11/20 | 05/22/201 | | tablet | mouth Daily. | | | 16 | 7 | + + + +---------+ + + documented as of this encounter Progress Notes Tonya Oneil RN - 11/07/2016 1:34 PM PSTDc/d home amb in stable condition with comp anion. Has return appts documented in this encounter Plan of Treatment +--------+---------+ + + + | Date | Type | Specialty | Care Team | Description | +--------+---------+ + + + | 10/01/ | Office | Cardiology | Karen Bansal, | | | 2019 | Visit | | MD Patricia JOHNSON | | | | | | [place] | | | | | | [address] | | | | | | | | +--------+---------+ + + + documented as of this encounter Procedures + +--------+ + + + | Procedure Name | Priori | Date/Time | Associated Diagnosis | Comments | | | ty | | | | + +--------+ + + + | CBC WITH | STAT | 11/07/2016 | Diffuse large | Results for this | | DIFFERENTIAL | | 8:17 AM | B-cell lymphoma of | procedure are in the | | | | PST | intra-abdominal | results section. | | | | | lymph nodes (HCC) | | + +--------+ + + + | LACTATE | STAT | 11/07/2016 | Diffuse large | Results for this | | DEHYDROGENASE | | 8:17 AM | B-cell lymphoma of | procedure are in the | | | | PST | intra-abdominal | results section. | | | | | lymph nodes (HCC) | | + +--------+ + + + | COMPREHENSIVE | STAT | 11/07/2016 | Diffuse large | Results for this | | METABOLIC PANEL | | 8:17 AM | B-cell lymphoma of | procedure are in the | | | | PST | intra-abdominal | results section. | | | | | lymph nodes (HCC) | | + +--------+ + + + documented in this encounter Results CBC with Differential (11/07/2016 8:17 AM PST) + + + + + [...] + + + + | RBC | 3.52 (L) | 4.30 - 5.70 | [facility] | | | | | M/uL | [facility] | | | | | | MEDICAL | | | | | | CENTER - | | | | | | LABORATORY | | + + + + + + | Hemoglobin | 10.7 (L) | 13.5 - 18.0 | [facility] | | | | | g/dL | [facility] | | | | | | MEDICAL | | | | | | CENTER - | | | | | | LABORATORY | | + + + + + + | Hematocrit | 31.3 (L) | 40.0 - 51.0 % | [facility] | | | | | | [facility] | | | | | | MEDICAL | | | | | | CENTER - | | | | | | LABORATORY | | + + + + + + | MCV | 88.9 | 83.0 - 101.0 fL | [facility] | | | | | | [facility] | | | | | | MEDICAL | | | | | | CENTER - | | | | | | LABORATORY | | + + + + + + | MCH | 30.4 | 28.0 - 35.0 pg | [facility] [...] + + + + | RDW-CV | 18.7 (H) | <15.0 % | [facility] | | | | | | [facility] | | | | | | MEDICAL | | | | | | CENTER - | | | | | | LABORATORY | | + + + + + + | Platelet | 125 (L) | 140 - 440 K/uL | [...] + + + + | % | 71.9 | 45.0 - 82.0 % | [facility] | | | Neutrophils | | | [facility] | | | | | | MEDICAL | | | | | | CENTER - | | | | | | LABORATORY | | + + + + + + | % | 15.1 (L) | 20.0 - 45.0 % | [facility] | | | Lymphocytes | | | [facility] | | | | | | MEDICAL | | | | | | CENTER - | | | | | | LABORATORY | | + + + + + + | % Monocytes | 9.8 | 4.0 - 12.0 % | [facility] [...] + + + | % Basophils | 0.9 | 0.0 - 1.0 % | [facility] [...] | | Eosinophils | | K/uL | [facility] | [...] + | [facility] | [address] | [place] | [phone] | | [facility] | | [address] | | | - LABORATORY | | | | + + + + + Comprehensive Metabolic Panel (11/07/2016 8:17 AM PST) + + + + + [...] + + + + | Glucose | 130 (H) | 70 - 109 mg/dL | [...] | mL/min/1.73m2 | [facility] | | | [facility] | RATE,ESTIMATED | | MEDICAL | | | | mL/min/1.87b6Yreq than | | CENTER - | | [...] + + + + | AST | 21Comment: This is an | 10 - 42 [...] + + + + | ALT | 18Comment: This is an | 6 - 45 [...] + | [facility] | [address] | [place] | [phone] | | [facility] | | [address] | | | - LABORATORY | | | | + + + + + Lactate Dehydrogenase (11/07/2016 8:17 AM PST) + +-------+ + + + | Component | Value | Ref Range | Performed | Pathologist | | | | | At | Signature | + +-------+ + + + | LDH TOTAL | 165 | 91 - 180 U/L | [facility] [...] [address] | [place] | [phone] | | [facility] | | [address] | | | - LABORATORY | | [...] | acetaminophen (TYLENOL) tablet | Given | 11/07/19 | 650 mg | | | | 650 mg 650 mg, Oral, ONCE, Sun | | 17 9:42 | | | | | 11/07/16 at 0945, For 1 dose, Give | | AM PST | | | | | 30 minutes prior to riTUXimab., | | | | | | + +--------+ +--------+------+------+ +---+---+ | | | +---+---+ + +-------+ +--------+---+---+ | aluminum & magnesium | Given | 11/07/19 | 30 mLs | | | | hydroxide-simethicone (MAALOX | | 17 12:00 | | | | | PLUS REGULAR STRENGTH) 200-200-20 | | PM PST | | | | | mg/5 mL suspension 30 mL 30 mL, | | | | | | | Oral, ONCE, 11/07/16 at 1215, | | | | | | | For 1 dose, Luis Alberto chaparro., | | | | | | + +-------+ +--------+---+---+ +---+---+ | | | +---+---+ + +-------+ +-------+---+---+ | famotidine (PEPCID) injection | Given | 11/07/19 | 20 mg | | | | 20 mg 20 mg, Intravenous, ONCE, | | 17 9:43 | | | | | 2/14/17 at 0945, For 1 dose, | | AM PST [...] heparin 100 units/mL flush | Given | 11/07/19 | 500 | | | | injection 500 Units 500 Units (5 | | 17 1:24 | Units | | | | mL), Intracatheter, PRN, Line | | PM PST | | | | | Care, Starting 11/07/16 at | | | | | | | 0925 | | | | | | + +-------+ +-------+---+---+ +---+---+ | | | +---+---+ + +---------+ + +---+---+ | riTUXimab (RITUXAN) 1,000 mg in | New Bag | 11/07/19 | 1,000 mg | | | | sodium chloride 0.9% 1,000 mL | | 17 10:02 | | | | | infusion 1,000 mg (rounded from | | AM PST | | | | | 997.5 mg = 375 mg/m2 | | | | | | | 2.66 m2 Treatment plan recorded | | | | | | | BSA), Intravenous, ONCE, Tue | | | | | | | 11/07/16 at 1015, For 1 dose, | | | | [...]
--- OUTSIDE RECORDS SUMMARY | ~2019-09-27 | XMS | Encounter Summary ---
Demographics + + + | Address | [address] | | | [place] [address] | + + + | Home Phone | | + + + | Preferred Language | Unknown | + + + | Marital Status | | + + + | Restorationism Affiliation | 1013 | + + + | Race | Unknown | + + + | Ethnic Group | Unknown | + + + Author + + + | Author | [facility] | | | and [place] | + + + | Organization | [facility] | | | [...] [place] | | | | | [address] | | + + + + + Care Team Providers + +------+ + | Care Epidemiology Internship Name | Role | Phone | + [...] [place] | | | | | [address] [place] | [place] [address] | | | | | [place] [address] | [phone] | | | | | [phone] | | | +--------+ + + + [...] [place] | | | | | | [address] | | | | | | | | +--------+---------+ + + + documented as of this encounter Visit Diagnoses + + | Diagnosis | + + | Diffuse large B-cell lymphoma of intra-abdominal lymph nodes (HCC) Other malignant | | lymphomas of intra-abdominal lymph nodes | + + documented in this encounter"
--- OUTSIDE RECORDS SUMMARY | ~2019-09-27 | XMS | Encounter Summary ---
Demographics + + + | Address | [address] | | | [place] [address] | + + + | Home Phone | | + + + | Preferred Language | Unknown | + + + | Marital Status | | + + + | Congregation Affiliation | 1013 | + + + | Race | Unknown | + + + | Ethnic Group | Unknown | + + + Author + + + | Author | [facility] | | | and [place] | + + + | Organization | [facility] | | | [...] [place] | | | | | [address] | | + + + + + Care Team Providers + +------+ + | Care Outside Salesman Name | Role | Phone | + [...] large b-cell | Gerber Benson, | [address] | | | | | lymphoma, | MD [address] | [place], | | | | | intra-abdomi | [address] | [place] [address] | | | | | nal lymph | [place], | Phone: | | | | | nodes (HCC) | [place] [address] | [phone] | | | | | Procedures | Phone: | Fax: | | | | | [place] | [phone] | [phone] | | | | | INJECTION, | Fax: | | | | | | FAMOTIDINE, | [phone] | | | | | | 20 MG MO | | | | | | | RITUXIMAB | | | | | | | INJECTION, | | | | | | | 100 MG MO | | | | | | | LORAZEPAM | | | | | | | INJECTION, 2 | | | | | | | MG MO | | | | | | | MEPERIDINE | | | | | | | HYDROCHL | | | | | | | /100 MG MO | | | | | | | DIPHENHYDRAM | | | | | | | INE HCL | | | | | | | INJECTIO, 50 | | | | | | | MG MO | | | | | | | METHYLPREDNI | | | | | | | SOLONE | | | | | | | INJECTION, | | | | | | | 125 MG MO | | | | | | | DEXAMETHASON | | | | | | | E SODIUM | | | | | | | PHOS, 1 MG | | | | | | | MO NORMAL | | | | | | | SALINE | | | | | | | SOLUTION | | | | | | | INFUS, 500 | | | | | | | ML MO | | | | | | | NORMAL | | | | | | | SALINE | | | | | | | SOLUTION | | | | | | | INFUS, 250 | | | | | | | ML MO | | | | | | | STERILE | | | | | | | WATER/SALINE | | | | | | | , 10 ML MO | | | | | | | CHEMOTHER, | | | | | | | IV PUSH,EA | | | | | | | ADD DRUG MO | | | | | | | CHEMOTHER, | | | | | | | IV INFUSION, | | | | | | | 1 HR MO | | | | | | | CHEMOTHER, | | | | | | | IV INFUSION, | | | | | | | EA HR MO | | | | | | | CHEMOTHER,NO | | | | | | | N-HORMONE | | | | | | | ANTI-NEOPL, | | | | | | | SUB-Q/IM MO | | | | | | | [...] | +--------+ + + + + | 05/20/ | Hospital | [facility] | Mohamud, | 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 [address] | lymphoma of | | | | INFUSION [address] | [address] [place] | intra-abdominal | | | | [address] [place], | [place] [address] | lymph nodes (HCC) | | | | [place] [address] | [phone] | | | | | [phone] | | | +--------+ + + + [...] encounter Progress Notes Tonya Oneil RN - 05/20/2018 1:18 PM PDTDc/d amb with . Has return appts. Elect ronically signed by Tonya Oneil RN at 05/20/2018 1:19 PM PDTdocumented in this encou nter Plan of Treatment +--------+---------+ + + + | Date | Type | Specialty | Care Team | Description | +--------+---------+ + + + | 10/01/ | Office | Cardiology | Karen Bansal, | | | 2019 | Visit | | MD Patricia JOHNSON | | | | | | [place] | | | | | | [address] | | | | | | | | +--------+---------+ + + + documented as of this encounter Procedures + +--------+ + + + | Procedure Name | Priori | Date/Time | Associated Diagnosis | Comments | | | ty | | | | + +--------+ + + + | CBC WITH | STAT | 05/20/2018 | Diffuse large | Results for this | | DIFFERENTIAL | | 8:09 AM | B-cell lymphoma of | procedure are in the | | | | PDT | intra-abdominal | results section. | | | | | lymph nodes (HCC) | | + +--------+ + + + | LACTATE | STAT | 05/20/2018 | Diffuse large | Results for this | | DEHYDROGENASE | | 8:09 AM | B-cell lymphoma of | procedure are in the | | | | PDT | intra-abdominal | results section. | | | | | lymph nodes (HCC) | | + +--------+ + + + | COMPREHENSIVE | STAT | 05/20/2018 | Diffuse large | Results for this | | METABOLIC PANEL | | 8:09 AM | B-cell lymphoma of | procedure are in the | | | | PDT | intra-abdominal | results section. | | | | | lymph nodes (HCC) | | + +--------+ + + + documented in this encounter Results CBC with Differential (05/20/2018 8:09 AM PDT) + + + + + [...] + + + + | RBC | 4.15 (L) | 4.30 - 5.70 | [facility] [...] + + + + | Hematocrit | 36.2 (L) | 40.0 - 51.0 % | [facility] | [facility] | [facility] | | | | | | [facility] - | | | | | | LABORATORY | | + + + + + + | MCV | 87.2 | 83.0 - 101.0 fL | [facility] [...] + + + + | MCHC | 35.0 | 32.0 - 36.0 | [facility] | | | | | g/dL | [facility] | | | | [facility] | [facility] | | | | | | C[facility] - | | | | | | LABORATORY | | + + + + + + | RDW-CV | 16.4 (H) | <15.0 % | [facility] | | [facility] | [facility] | [facility] | | | | | | C[facility] - | | | | | | LABORATORY | | + + + + + + | Platelet | 130 (L) | 140 - 440 K/uL | [...] + + + + | % | 68.3 | 45.0 - 82.0 % | [facility] | | | Neutrophils | | | [facility] | | | | | | [facility] | | | | | | CENTER - | | | | | | LABORATORY | | + + + + + + | % | 23.2 | 20.0 - 45.0 % | [facility] | | | Lymphocytes | | | [facility] | | | | | | [facility]ICAL | | | | | | CENTER - | | | | | | LABORATORY | | + + + + + + | % Monocytes | 5.4 | 4.0 - 12.0 % | [facility] [...] | | Basophils | | K/uL | . [facility] | | | | [...] + | [facility] | [address] | [place] | [phone] | | [facility] | | [address] | | | - LABORATORY | | | | + + + + + Comprehensive Metabolic Panel (05/20/2018 8:09 AM PDT) + + + + + + | Component | Value | Ref Range | Performed | Pathologist | | | | | At | Signature | + + + + + + | Na | 136 | 136 - 149 | [facility] | [...] + + + + | Cl | 103 | 98 - 109 mmol/L | [facility] [...] + + + + | Creatinine | 0.87 | 0.60 - 1.30 | [facility] | | | | | mg/dL | [facility] | | | | | | [facility]ICAL | | | | | | CENTER - | | | | | | LABORATORY | | + + + + + + | eGFR if not | >60Comment: GLOMERULAR | >=60 | [facility] | | | | FILTRATION | mL/min/1.73m2 | [facility] | | | URUGUAYAN | RATE,ESTIMATED | | MEDICAL | | | | mL/min/1.76j2Yguz than | | CENTER - | | [...] | 9.4 | 8.3 - 10.5 | [facility] | | | | | mg/dL | [facility] | | | | | | MEDICAL | | | | | | CENTER - | | | | | | LABORATORY | | + + + + + + | Albumin | 3.6 | 3.2 - 5.0 g/dL | [facility] [...] + + + + | Alkaline | 52Comment: This is an | 40 - 110 [...] + + + + | BUN/Creatin | 21.8 | | [facility] | | | ine [...] [address] | [place] | [phone] | | [facility] | | [address] | | | - LABORATORY | | | | + + + + + Lactate Dehydrogenase (05/20/2018 8:09 AM PDT) + +-------+ + + + | Component | Value | Ref Range | Performed | Pathologist | | | | | At | Signature | + +-------+ + + + | LDH TOTAL | 136 | 91 - 180 U/L | [facility] [...] [address] | [place] | [phone] | | [facility] | | [address] | | | - LABORATORY | | [...] | acetaminophen (TYLENOL) tablet | Given | 05/20/20 | 650 mg | | | | 650 mg 650 mg, Oral, ONCE, Sun | | 18 9:26 | | | | | 05/20/18 at 0913, For 1 dose, Give | | AM PDT | | | | | 30 minutes prior to riTUXimab., | | | | | | + +--------+ +--------+------+------+ +---+---+ | | | +---+---+ + +-------+ +---+---+---+ | ethyl chloride spray Topical, | Given | 05/20/20 | | | | | PRN, Pain, Starting 05/20/18 | | 18 8:12 | | | | | at 0809 | | AM PDT | | | | + +-------+ +---+---+---+ +---+---+ | | | +---+---+ + +-------+ +-------+---+---+ | famotidine (PEPCID) injection | Given | 05/20/20 | 20 mg | | | | 20 mg 20 mg, Intravenous, ONCE, | | 18 9:26 | | | | | 05/20/18 at 0913, For 1 dose, | | AM PDT [...] heparin 100 units/mL flush | Given | 05/20/20 | 500 | | | | injection 500 Units 500 Units (5 | | 18 1:14 | Units | | | | mL), Intracatheter, PRN, Line | | PM PDT | | | | | Care, Starting 05/20/18 at | | | | | | | 0912 | | | | | | + +-------+ +-------+---+---+ +---+---+ | | | +---+---+ + +---------+ + +---+---+ | riTUXimab (RITUXAN) 1,000 mg in | New Bag | 05/20/20 | 1,000 mg | | | | sodium chloride 0.9% 1,000 mL | | 18 9:52 | | | | | infusion 1,000 mg (rounded from | | AM PDT | | | | | 997.5 mg = 375 mg/m2 | | | | | | | 2.66 m2 Treatment plan recorded | | | | | | | BSA), Intravenous, ONCE, Mon | | | | | | | 05/20/18 at 0943, For 1 dose, | | | | [...]
--- OUTSIDE RECORDS SUMMARY | ~2019-09-27 | XMS | Encounter Summary ---
Demographics + + + | Address | [address] | | | [place] [address] | + + + | Home Phone | | + + + | Preferred Language | Unknown | + + + | Marital Status | | + + + | Christianity Affiliation | 1013 | + + + | Race | Unknown | + + + | Ethnic Group | Unknown | + + + Author + + + | Author | [facility] | | | and [place] | + + + | Organization | [facility] | | [...] [place] | | | | | [address] | | + + + + + Care Team Providers + +------+ + | Care Lombardi Developer Name | Role | Phone | + [...] large b-cell | Gerber Benson, | [address] | | | | | lymphoma, | MD [address] | [place], | | | | | intra-abdomi | [address] | [place] [address] | | | | | nal lymph | [place], | Phone: | | | | | nodes (HCC) | [place] [address] | [phone] | | | | | Procedures | Phone: | Fax: | | | | | [place] | [phone] | [phone] | | | | | INJECTION, | Fax: | | | | | | FAMOTIDINE, | [phone] | | | | | | 20 MG SC | | | | | | | RITUXIMAB | | | | | | | INJECTION, | | | | | | | 100 MG SC | | | | | | | LORAZEPAM | | | | | | | INJECTION, 2 | | | | | | | MG SC | | | | | | | MEPERIDINE | | | | | | | HYDROCHL | | | | | | | /100 MG SC | | | | | | | DIPHENHYDRAM | | | | | | | INE HCL | | | | | | | INJECTIO, 50 | | | | | | | MG SC | | | | | | | METHYLPREDNI | | | | | | | SOLONE | | | | | | | INJECTION, | | | | | | | 125 MG SC | | | | | | | DEXAMETHASON | | | | | | | E SODIUM | | | | | | | PHOS, 1 MG | | | | | | | SC NORMAL | | | | | | | SALINE | | | | | | | SOLUTION | | | | | | | INFUS, 500 | | | | | | | ML SC | | | | | | | NORMAL | | | | | | | SALINE | | | | | | | SOLUTION | | | | | | | INFUS, 250 | | | | | | | ML SC | | | | | | | STERILE | | | | | | | WATER/SALINE | | | | | | | , 10 ML SC | | | | | | | CHEMOTHER, | | | | | | | IV PUSH,EA | | | | | | | ADD DRUG SC | | | | | | | CHEMOTHER, | | | | | | | IV INFUSION, | | | | | | | 1 HR SC | | | | | | | CHEMOTHER, | | | | | | | IV INFUSION, | | | | | | | EA HR SC | | | | | | | CHEMOTHER,NO | | | | | | | N-HORMONE | | | | | | | ANTI-NEOPL, | | | | | | | SUB-Q/IM [place] | | | | | | | [...] [place] | intra-abdominal | | | | [address] [place], | [place] [address] | lymph nodes (HCC) | | | | [place] [address] | [phone] | | | | | [phone] | | | +--------+ + + + [...] [place] | | | | | | [address] | | | | | | | [...] + | [facility] | [address] | [place] | [phone] | | [facility] | | [address] | | | - LABORATORY | | [...] | mL/min/1.73m2 | [facility] | | | SAUDI ARABIAN | RATE,ESTIMATED | | MEDICAL | | | | mL/min/1.47w6Twtq than | | CENTER - | | [...] [address] | [place] | [phone] | | [facility] | | [address] | | | - LABORATORY | | [...] [address] | [place] | [phone] | | [facility] | | [address] | | | - LABORATORY | | [...]
--- OUTSIDE RECORDS SUMMARY | ~2019-09-27 | XMS | Encounter Summary ---
Demographics + + + | Address | [address] | | | [place] [address] | + + + | Home Phone | | + + + | Preferred Language | Unknown | + + + | Marital Status | | + + + | Rastafarian Affiliation | 1013 | + + + | Race | Unknown | + + + | Ethnic Group | Unknown | + + + Author + + + | Author | [facility] | | | and [place] | + + + | Organization | [facility] | | | [...] [place] | | | | | [address] | | + + + + + Care Team Providers + +------+ + | Care Hybrid Corn Breeder Name | Role | Phone | + [...] | | ONCOLOGY CLINIC [address] | [address] [facility] | | | | | [address] | [place] [address] | | | | | [place] [address] | [phone] | | | | | [phone] | | | +--------+ + + + [...] [place] | | | | | | [address] | | | | | | | | +--------+---------+ + + + documented as of this encounter Visit Diagnoses Not on filedocumented in this encounter"
--- OUTSIDE RECORDS SUMMARY | ~2019-09-27 | XMS | Encounter Summary ---
Demographics + + + | Address | [address] | | | [place] [address] | + + + | Home Phone | | + + + | Preferred Language | Unknown | + + + | Marital Status | | + + + | Scientology Affiliation | 1013 | + + + | Race | Unknown | + + + | Ethnic Group | Unknown | + + + Author + + + | Author | [facility] | | | and [place] | + + + | Organization | [facility] | | | [...] [place] | | | | | [address] | | + + + + + Care Team Providers + +------+ + | Care Manufacturing Controller Name | Role | Phone | + [...] lower | MD [address] | [address] [place] | | | | | extremity | [address] | [place], | | | | | | [place], | [place] [address] | | | | | | [place] [address] | Phone: | | | | | | Phone: | [phone] | | | | | | [phone] | Fax: | | | | | | Fax: | [phone] | | | | | | [phone] | | +--------+ + + + + + Reason for Visit + + + | Reason | Comments | + + + | Follow-up | | + + + Encounter Details +--------+ + + + + | Date | Type | Department | Care Team | Description | +--------+ + + + + | 08/24/ | Hospital | [facility] | Diffuse large B-cell | | 2016 | Encounter | MED CTR MEDICAL | Joaquim Benson MD [address] | lymphoma of | | | | ONCOLOGY CLINIC [address] | [address] [place] | intra-abdominal | | | | [address] [place] | [place] [address] | lymph nodes (HCC) | | | | [place] [address] | [phone] | (Primary Dx); | | | | [phone] | | Lymphedema of left | | [...] nt from the original. Hematology/Oncology Progress Note [facility] [place] Pt. Name/Age/: Joaquim Sanchez 66 y.o. 1950 Med. Record Number: [id number] Date of admission: 08/24/2016 Identifying Statement: Joaquim Sanchez is a 66 y.o. male from [address] [address] with Diffuse Large B-Cell Lymphoma. The patient [...] lower extremity. CT abdomen/Pelvis with contrast 2016 ([facility]). Ex tensive periaortic lymphadenopathy (1.8 cm and 2.1 cm respectively), extensive adenopathy ex tending out along the left common iliac artery and encasing the left external iliac artery ( 4.4 cm) with compromise of the left external iliac vein. 2. Open laparotomy with LEFT ileal retroperitoneal lymph node biopsy ([place], [facility]) June 242015. Specimen #[id number] ([facility]); Diffuse Large B-Cell lymph [...] this chart may have been created with [employer] voice recognition software. Occasi onal wrong-word or [...] [place] | | | | | | [address] | | | | | | | [...] [address] | [place] | [phone] | | [facility] | | [address] | | | - LABORATORY | | [...] diff needed | [facility] | | | [facility] | | | [facility] | | | - LABORATORY | + + + + + + + + | Performing | Address | City/State/Zipcode | Phone Number | | Organization | | | | + + + + + | [facility] | [address] | [place] | [phone] | | [facility] | | [address] | | | - LABORATORY | | [...] [address] | [place] | [phone] | | [facility] | | [address] | | | - LABORATORY | | [...] | | | | | [place] [address] | | | | + + + + + + + + | Specimen | + + | Blood specimen | | (specimen) | + + + + + + + | Performing | Address | City/State/Zipcode | Phone Number | | Organization | | | | + + + + + | [facility] | [address] | [place] [address] | [phone] | + + + + + Uric [...] [address] | [place] | [phone] | | [facility] | | [address] | | | - LABORATORY | | [...] | 0.96 | 0.60 - 1.30 | [facility] | | | | | mg/dL | [facility] | | | | | | MEDICAL | | | | | | CENTER - | | | | | | LABORATORY | | + + + + + + | eGFR if not | >60Comment: GLOMERULAR | >=60 | [facility] | | | | FILTRATION | mL/min/1.73m2 | [facility] | | | MONTS[place]IAN | RATE,ESTIMATED | | MEDICAL | | | | mL/min/1.29h7Igjy than | | CENTER - | | [...] | 9.2 | 8.3 - 10.5 | [facility] | | | | | mg/dL | [facility] | | | | | [...] [address] | [place] | [phone] | | [facility] | | [address] | | | - LABORATORY | | [...] [address] | [place] | [phone] | | [facility] | | [address] | | | - LABORATORY | | [...]
--- OUTSIDE RECORDS SUMMARY | ~2019-09-27 | XMS | Encounter Summary ---
Demographics + + + | Address | [address] | | | [place] [address] | + + + | Home Phone [...] [place] | | | | | [address] | | + + + + + Care Team Providers + +------+ + | Care Pipeline Inspector Name | Role | Phone | + [...] +--------+ + + + + + | Denied | Specialty | Nutrition | Diagnoses | | [facility] | | | Services | | Encounter | Mohamud, | Nutrition | | | Required | | for | Gerber Benson, | Services [address] | | | | | antineoplast | MD [address] | [address] | | | | | ic | [address] | [place], | | | | | chemotherapy | [place], | [place] [address] | | | | | Diffuse | [place] [address] | Phone: | | | | | large b-cell | Phone: | [phone] | | | | | lymphoma, | [phone] | Fax: | | | | | intra-abdomi | Fax: | [phone] | | | | | nal lymph | [phone] | | | | | | nodes (HCC) | | | | | | | Procedures | | | | | | | [place] MED NUTR | | | | | | | THER, 1ST, | | | | | | | INDIV, EA 15 | | | | | | | MIN | | | +--------+ + + + + + Reason for Visit + + + | Reason | Comments | + + + | IDT Note | | + + + Encounter Details +--------+ + + + + | Date | Type | Department | Care Team | Description | +--------+ + + + + | 07/19/ | Telephone | [facility] | Patricia Mercado, | IDT Note | | 2015 | | MED CTR CHEMO | RN | | | | | INFUSION [address] | | | | | | [address], | | | | | | [place] [address] | | | | | | [phone] | | | +--------+ + + + [...] [place] | | | | | | [address] | | | | | | | | +--------+---------+ + + + + + +--------+ + + | Name | Type | Priori | Associated Diagnoses | Order Schedule | | | | ty | | | + + +--------+ + + | * [facility] | Outpatient | Routin | Diffuse large | Ordered: 07/19/2016 | | Services - AMB | Referral | e | B-cell lymphoma of | | | Referral | | | intra-abdominal | | | | | | lymph nodes (HCC) | | + + +--------+ + + documented as of this encounter Visit Diagnoses + + | Diagnosis | + + | 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
--- OUTSIDE RECORDS SUMMARY | ~2019-09-27 | XMS | Encounter Summary ---
Demographics + + + | Address | [address] | | | [place] [address] | + + + | Home Phone | | + + + | Preferred Language | Unknown | + + + | Marital Status | | + + + | Restorationist Affiliation | [id number] | + + + | Race | Unknown | + + + | Ethnic Group | Unknown | + + + Author + + + | Author | [facility] | | | and [place] | + + + | Organization | [facility] | | | and [place] | + + + | Address | Unknown | + + + | Phone | Unavailable | + + + Support + + + + + | Name | Relationship | Address | Phone | + + + + + | Mara Sanchez | ECON | [address] | | | | | [place] | | | | | [address] | | + + + + + Care Team Providers + +------+ + | Care Law Examiner Name | Role | Phone | + +------+ + | Earle Chacko MD | PCP | | + +------+ + Encounter Details +--------+ + + + + | Date | Type | Department | Care Team | Description | +--------+ + + + + | 09/26/ | Hospital | [facility] | Mohamud, | Diffuse large B-cell | | 2017 | Encounter | [facility] | Joaquim Benson MD [address] | lymphoma of | | | | [facility] CL[facility] [address] [place] | intra-abdominal | | | | [address] [place] | [place] [address] | lymph nodes (HCC) | | | | [place] [address] | [phone] | (Primary Dx) | | | | [phone] | | | +--------+ + + + [...] + + + | Blood Pressure | 125/70 | 09/26/2016 8:29 AM | | | | | PST | | + + + + + | Pulse | 60 | 09/26/2016 8:29 AM | | | | | PST | | + + + + + | Temperature | 36.4 C (97.5 F) | 09/26/2016 8:29 AM | | | | | PST | | + + + + + | Respiratory Rate | 16 | 09/26/2016 8:29 AM | | | | | PST | | + + + + + | Oxygen Saturation | 96% | 09/26/2016 8:29 AM | | | | | PST | | + + + + + | Inhaled Oxygen | - | - | | | Concentration | | | | + + + + + | Weight | 138.3 kg (304 lb | 09/26/2016 8:29 AM | | | | 14.3 oz) | PST | | + + + + + | Height | - | - | | + + + + + | Body Mass Index | 39.15 | 07/18/2016 4:16 PM | | | [...] encounter Progress Notes Joaquim Tejeda MD - 09/26/2016 8:30 AM PSTFormatting of this note might be differe nt from the original. Hematology/Oncology Progress Note [facility] [place] Pt. Name/Age/: Joaquim Sanchez 66 y.o. 1950 [facility]. Record Number: [id number] Date of admission: 09/26/2016 Identifying Statement: Joaquim Sanchez is a 66 y.o. male from [address] [address] with Diffuse Large B-Cell Lymphoma. The patient [...] lower extremity. CT abdomen/Pelvis with contrast 2016 ([facility] Ex tensive periaortic lymphadenopathy (1.8 cm and 2.1 cm respectively), extensive adenopathy ex tending out along the left common iliac artery and encasing the left external iliac artery ( 4.4 cm) with compromise of the left external iliac vein. 2. Open laparotomy with LEFT ileal retroperitoneal lymph node biopsy ([facility]) June 242015. Specimen #[id number] ([facility]); Diffuse Large B-Cell lymph raciel, [...] September 04, 2016. 10. CT Abdomen/Pelvis at [facility] [place] on September 12, 2016; Positive Response [...] due to peripheral neuropathy) September 26, 2016. Current Assessment & Plan Joaquim Atkinson" returned to clinic on 09/26/2016 with his , Mara, on 017 for follow-up and treatment of his Diffuse Large B-cell lymphoma, at least grade III. Interval history is notable for the fact that Rios underwent CT scan at [facility] in [place], [place] on September 12, 2016 that demonstrated a positive response to therap y. Nevertheless, he continues to suffer from complaints of LEFT lower extremity lymphedema a nd is getting manual therapy for this. Chief complaint today is worsening of a pre-existing peripheral neuropathy syndrome. Sympto ms predated the initiation of chemotherapy, but have been exacerbated by chemotherapy with b oth paresthesias and painful dysesthesias. Rios has previously tried gabapentin for this co mplaint, but without relief. I endorsed the nutritional supplements Vitamin E 400 IU twice a day and L-glutamine 15 grams twice a day to help mitigate the neuropathic effects of chemot herapy. Clinical exam is notable for bilateral conjunctivitis, also potentially related to chemothe rapy. I offered to prescribe dexamethasone eyedrops, but Rios wants to stick with OTC remed ies. Laboratory exam is notable for Grade 1 thrombocytopenia and Grade 1 leukopenia, neither of which require dose or schedule adjustment. 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 Peripheral neuropathy, pre-existing the diagnos is of cancer but substantially exacerbated by cancer treatment. Plan; proceed today with cycle #4 R CHOP chemotherapy without vincristine. Return to clini c in 7-10 days for safety evaluation. Cycle #5 of R CHOP chemotherapy again without vincris aaron in 3 weeks. Anticipating the treatment plan to include 6 cycles of R CHOP followed by repeat imaging studies. Consider maintenance rituximab for any residual lymphadenopathy pot entially related to follicular B-cell lymphoma. Review of Systems: REVIEW OF SYSTEMS Constitutional: States fatigue. Denies high fevers, shaking chills, anorexia, vomiting, we ight loss, or night sweats. Appetite without changes. Nausea reported that usually last eig ht days after chemotherapy. Ear, Nose, Mouth, Throat: Denies odynophagia, dysphagia, or tinnitus. Cardiovascular: Denies shortness of breath, dyspnea on exertion, chest pain, palpitations o r orthopnea. Respiratory: Denies cough, hemoptysis, or sputum production. Gastrointestinal: Denies abdominal pain, constipation, diarrhea, melena, or bright red bloo d per rectum. Genitourinary: Denies hematuria or dysuria. Musculoskele: States increased numbness/tingling of the extremities. States a week ago his right eye started weeping, along with blurred vision. Headaches after chemotherapy reported. Endocrine: Denies peripheral edema or heat/cold intolerance. Hematologic: Denies spontaneous bruising or bleeding. Integumentary: Denies rash, wounds or other skin concerns. Pain: States bunring in the feet rates the pain at a 3/10 continues to take gabapentin for this but states he doesn't want to increase the dosage as it makes him tired. Tolerable pain level: is not able to answer this question. Note: Pt is here for 6 hour tx and labs My chart: Scheduled Medications: Current Outpatient Prescriptions Medication Sig [...] tablet 3 predniSONE (DELTASONE) 20 mg tablet For 2 days after chemo 4 Sennosides (MP SENALAX PO) Take 2 [...] PRN Joaquim robles MD 500 Units at 09/26/16 1511 Allergies: Allergy: Allergies Allergen Reactions Codeine "wires [...] Lymphedema of left lower extremity Objectives: Temp: 36.4 C (97.5 F) BP: 125/70 mmHg Pulse: 60 Resp: 16 SpO2: 96 % on Min/Max Temp past 24 hours:Temp Av.4 C (97.5 F) Min: 36.4 C (97.5 F) Max: 3 6.4 C (97.5 F) No intake or output data in the 24 hours ending 09/26/16 1650 Wt. Admission: Weight: (!) 138.3 kg (304 lb 14.3 oz) Wt. Current: Weight: (!) 138.3 kg (304 lb 14.3 oz) Wt Readings from Last 3 Encounters: 09/26/16 138.3 kg (304 lb 14.3 oz) 09/14/16 138.755 kg (305 lb 14.4 oz) 09/05/16 135.988 kg (299 lb 12.8 oz) Physical Exam: General: The patient is alert and oriented. In no distress. Eyes: Conjunctiva clear. Sclera anicteric. ENMT: Oropharynx fee of lesions, mucous membranes moist. Cardiovascular: Regular rate and rhythm, no rubs, gallops, or murmurs. Lungs: Clear to auscultation and percussion. Abdomen: Soft, nontender, no hepatospenomegaly. No palpable masses. Bowel sounds present. Infraumbilical surgical scar is well-healed. : No scrotal edema. Extremities: 1+ asymmetrical LEFT lower extremity lymphedema to the [...] Oncol.: Davida Ma., Rebel, REdita., Andie Menezes., Donal Trejo, Vy Rodriguez., Armando [...] for JOAQUIM SANCHEZ ( ) as of 09/26/2016 16:07 Ref. Range 09/26/2016 08:05 WBC Latest Ref Range: 4.0-11.0 K/uL 3.5 (L) RBC: Latest Ref Range: 4.30-5.70 M/uL 3.66 (L) Hgb Latest Ref Range: 13.5-18.0 g/dL 10.9 (L) Hct, Final Latest Ref Range: 40.0-51.0 % 32.1 (L) MCV Latest Ref Range: 83.0-101.0 fL 87.7 MCH Latest Ref Range: 28.0-35.0 pg 29.9 MCHC Latest Ref Range: 32.0-36.0 g/dL 34.1 RDW-CV Latest Ref Range: <15.0 % 20.4 (H) Platelet Count Latest Ref Range: 140-440 K/uL 124 (L) MPV Latest Units: fL 8.4 Absolute Neutrophils Latest Ref Range: 1.80-8.50 K/uL 2.40 Absolute Lymphocytes Latest Ref Range: 0.60-3.20 K/uL 0.70 Absolute Monocytes Latest Ref Range: 0.00-1.00 K/uL 0.30 Absolute Eosinophils Latest Ref Range: 0.00-0.40 K/uL 0.00 Absolute Basophils Latest Ref Range: 0.00-0.10 K/uL 0.00 % Neutrophils Latest Ref Range: 45.0-82.0 % 69.9 % Lymphocytes Latest Ref Range: 20.0-45.0 % 19.9 (L) % Monocytes Latest Ref Range: 4.0-12.0 % 7.8 % Eosinophils Latest Ref Range: 0.0-5.0 % 1.0 % Basophils Latest Ref Range: 0.0-1.0 % 1.4 (H) NA Latest Ref Range: 136-149 mmol/L 142 K Latest Ref Range: 3.5-5.1 mmol/L 3.7 Chloride Latest Ref Range: 98-109 mmol/L 109 Carbon dioxide Latest Ref Range: 24-31 mmol/L 27 ANION GAP Latest Ref Range: 3-16 mmol/L 6 GLUCOSE Latest Ref Range: 70-109 mg/dL 134 (H) BUN Latest Ref Range: 7-18 mg/dL 16 BUN/CREA Unknown 18.0 Creatinine Latest Ref Range: 0.60-1.30 mg/dL 0.89 ALBUMIN Latest Ref Range: 3.2-5.0 g/dL 3.6 Albumin/Globulin ratio Latest Ref Range: 0.8-2.0 1.8 Total protein Latest Ref Range: 6.0-7.8 g/dL 5.6 (L) EGFR IF NOT Latest Ref Range: >=60 mL/min/1.73m2 >60 Calcium Latest Ref Range: 8.3-10.5 mg/dL 9.2 ALK PHOS Latest Ref Range: 40-110 U/L 44 ALT (SGPT) (REF) Latest Ref Range: 6-45 U/L 19 AST (SGOT) (REF) Latest Ref Range: 10-42 U/L 18 LDH TOTAL Latest Ref Range: 91-180 U/L 148 BILIRUBIN TOTAL Latest Ref Range: 0.1-1.5 mg/dL 0.6 GLOBULIN Latest Ref Range: 2.1-3.8 g/dL 2.0 (L) Multidisciplinary Care: Author: Olivia Portillo OT Service: (none) Author Type: Occupational Therapist Filed: 09/26/2016 14:22 Note Time: 09/26/2016 14:14 Status: Signed Big 6 Dealer: Olivia Portillo OT (Occupational Therapist) Expand All Collapse All [facility] OT OP [address] [place] [address] Occupational Therapy Discharge Note Date: 09/26/2016 Patient Information Patient Name: Joaquim Sanchez Date of : 1950ge: 66 y.o. History Encounter Diagnoses Code Name Primary? I89.0 Lymphedema of left lower extremity Yes Date of Onset: 2016 Referring Provider: Joaquim Tejeda MD Rehab Precautions Office Visit from 08/24/2016 in [facility] OT OP Rehab Precautions Precautions None Rehab Learning Style Office Visit from 08/24/2016 in [facility] OT OP Learning Style Patient's Optimum Learning Style performance of task, reading Pain Assessment: Pain Scale Used: NUMERIC Pain Rating During Assessment: 1 Location: palpation Percent of Time Pain is Experienced: 26-50% DISCHARGE NOTE: SUBJECTIVE: Joaquim Sanchez has completed 4 visits for treatment of LLE edema. Patient repo rts decreased edema and states that he is independent with his HEP. OBJECTIVE: Lymphedema Life Impact Scale: EVAL Physical Concerns 1. The amount of pain [...] 17 LLIS Score 38 Percent Impairment 56% Lymphedema Life Impact Scale: DISCHARGE Physical Concerns 1. The amount of pain associated with my lymphedema is 2 2. The amount of limb heaviness associated with my lymphedema is 2 3. The amount of skin tightness associated with my lymphedema is: 2 4. The size of my swollen limb(s) seems 3 5. Lymphedema affects movement of my swollen limb 1 6. The strength in my swollen limb(s) is 1 Psychosocial Concerns 7. Lymphedema affects my body image (how I think I look) 1 8. Lymphedema affects my socialization with others 0 9. Lymphedema affects my intimate relations with spouse or partner (rate 0 if N/A) 0 10. Lymphedema "gets me down" (i.e., feeelings of depression, frustration, or anger due to the lymphedema) 2 11. I must relay on others for help due to my lymphedema 2 12. I know what to do to manage my lymphedema 2 Functional Concerns 13. Lymphedema affects my ability to perform self-care activities (i.e., eating, dressing, hygiene) 1 14. Lymphedema affects my ability to perform routine home or work-related activities 1 15. Lymphedema affects my performance of preferred leisure activities 2 16. Lymphedema affects the proper fit of clothing/shoes 2 17. Lymphedema affects my sleep 2 Infection Occurrence 18. In the part year, I have become ill with an infection in my swollen limb requiring oral antibiotics or hospitalization 0 Number of questions answered LLIS Score 26 Percent Impairment 38% Lymphedema Life Impact Scale disability score:: 38.24 Assessment Joaquim Sanchez has completed therapy for treatment of LLE edema. Most treatment goals have been met. Patient continues to have impairments with intermittent edema and tenderness affe cting his functional ability to be fully independent with higher level ADLs and feel fully c omfortable with his LLE. With this patients continued focus on his HEP this/these impairment s should continue to improve. Goals: OP OT Goals OP OT Goals: Goal 1, Goal 2, Goal 3 Goal 1: Independent home exercise program to facilitate independent symptom management. Goal 1 Status: Goal Met - pt. indep w/ MLM and exs for edema management Goal 2: Improve LLIS outcome score to <=30% indicating improved ADL function and mobility. Goal 2 Status: Goal not met - patient score improved to 38% Goal 3: Patient will be fit with and educated in the use of an appropriate compression garm ents for nursing home management of edema. Goal 3 Status: Goal met Plan Date of Onset: 2016Start of Care Date: 08/24/2016 Requested # of Visits: 8 visits 1x/week for 8 weeks Certification From: 08/24/2016Certification To: 10/24/2016 Treatment Plan/Interventions 75870 - OT [id number] - Therapeutic [id number] - Therapeutic [id number] - Manu al Therapy Patient and/or family has indicated understanding of treatment needs and actively participa ian in the creation of this plan for care. Today's Treatment Start Time: 1230 Stop time: 1245 Duration: 15 minutes Timed Treatment Codes: 15 minutes # of OT Visits: 4 Objective: Patient and spouse report stabilized edema in LLE. Report that there are now days when his L leg will "look just like his right leg". Patient continues and was encour aged to continue to use compression garment as well as MLM techniques for edema mgmt. Meghana ent and spouse have no further questions or concerns at this time. PLAN: Discharge to [facility]. Electronically signed by: Olivia Portillo OT, 09/26/2016 14:19 Patient Name: Joaquim Sanchez/: 1950/ Palliative Care: Patient's Medications New Prescriptions No medications on file Modified Medications No medications on file Discontinued Medications No medications on file Procedure: Day 1, Cycle 5 (21-day cycle) Planned for 10/17/2016 Labs Lactate Dehydrogenase STAT, ONE TIME Starting when released OrderHistory Comprehensive Metabolic Panel STAT, ONE TIME Starting when released OrderHistory CBC with Differential STAT, ONE TIME Starting when released OrderHistory Nursing Orders OK to proceed with chemotherapy Order Details OrderHistory Plans for discharge MAKE SURE HE STARTS ON THE PREDNISONE . arrange marco in [place] with Dora for day 2- fax her orders. QFU CBC,CMP,LDH ARM DRAW IN 10 DAYS FOR AGUSTIN CHECK QFU in 21 days CBC,CMP,LDH * PORT DRAW AND 6 HOUR RX OrderHistory Pre-Medications acetaminophen (TYLENOL) tablet 650 mg 650 mg, Oral, ONCE, Starting at treatment start time Give 30 minutes prior to riTUXimab. OrderHistory diphenhydrAMINE (BENADRYL) injection 25 mg 25 mg, Intravenous, ONCE, Starting at treatment start time OrderHistory ondansetron (ZOFRAN) 8 mg, dexamethasone (DECADRON) 4 mg in sodium chloride 0.9% 50 m L IVPB Intravenous, for 16 Minutes, ONCE, Starting when released OrderHistory fosaprepitant (EMEND) 150 mg in sodium chloride 0.9% 150 mL IVPB 150 mg, Intravenous, for 20 Minutes, ONCE, Starting 15 minutes after treatment start ti me Do not shake bag. Administer prior to chemotherapy. OrderHistory CHEMOTHERAPY riTUXimab (RITUXAN) 1,000 mg in sodium chloride 0.9% 1,000 mL infusion 375 mg/m2 (Treatment Plan), Intravenous, ONCE, Starting 30 minutes after treatment star t time Initial infusion: Start at 50 mg/hr. [...] infusion at 50% of previous rate. OrderHistory DOXOrubicin (ADRIAMYCIN) 133 mg in sodium chloride 0.9% 250 mL chemo infusion 50 mg/m2 (Treatment Plan), Intravenous, for 30 Minutes, ONCE, Starting 4.50 hours after treatment start time Chemotherapy: Use appropriate handling precautions. Vesicant. Protect from light. Order History cyclophosphamide (CYTOXAN) 2,000 mg in sodium chloride 0.9% 250 mL chemo infusion 750 mg/m2 (Treatment Plan), Intravenous, for 60 Minutes, ONCE, Starting 5 hours after t reatment start time Chemotherapy: Use appropriate handling precautions. OrderHistory Post-Medications heparin 100 units/mL flush injection 500 Units 5 mL, Intercatheter, PRN, Line Care, Starting when released, Until Discontinued Order History PRN Medications LORazepam (ATIVAN) injection [...] infusion, activate code blue and notify . Yuriy MUNOZ affirmed that he has an active prescription for prednisone and will take 100 mg in t he morning with breakfast for 5 consecutive days starting tomorrow. JOAQUIM TEJEDA MD Portions of this chart may have been created with [employer] voice recognition software. Occasi onal wrong-word or [...] | | | | | [place] | | | | | | [id number] [...]
--- OUTSIDE RECORDS SUMMARY | ~2019-09-27 | XMS | Encounter Summary ---
Demographics + + + | Address | [address] | | | [place] [address] | + + + | Home Phone | | + + + | Preferred Language | Unknown | + + + | Marital Status | | + + + | Adventism Affiliation | 1013 | + + + [...] [place] | | | | | [address] | | + + + + + Care Team Providers + +------+ + | Care Heavy Equipment Operator/Paver Name | Role | Phone | + [...] | large cell | [address] | [place], [place] | | | | | B-cell | [place], | [address] | | | | | lymphoma | [place] [address] | Phone: | | | | | ([facility]) | Phone: | [phone] | | | | | | [phone] | Fax: | | | | | | Fax: | [phone] | | | | | | [phone] | | +--------+ + + + + [...] | Primary | Nikhil, | [address] | | | | | cutaneous | Joaquim C, | [place], | | | | | diffuse | MD [address] | [place] | | | | | large cell | [address] | [address] | | | | | B-cell | [place], | Phone: | | | | | lymphoma | [place] [address] | [phone] | | | | | (HCC) | Phone: | Fax: | | | | | Procedures | [phone] | [phone] | | | | | ECHO | Fax: | | | | | | Complete | [phone] | | +--------+--------+ + + + + [...] | | cutaneous | Joaquim C, | [address] [place] | | | | | diffuse | MD [address] | [place], [place] | | | | | large cell | [address] | [address] | | | | | B-cell | [place], | Phone: | | | | | lymphoma | [place] [address] | [phone] | | | | | (HCC) | Phone: | Fax: | | | | | Procedures | [phone] | [phone] | | | | | PET CT Skull | Fax: | | | | | | Base To Mid | [phone] | | | | | | Thigh [...] | | cell | [place], | [place], [place] | | | | | lymphoma | [place] [address] | [address] Phone: | | | | | Procedures | Phone: | [phone] | | | | | [facility] | [phone] | Fax: | | | | | OUTPATIENT | Fax: | [phone] | | | | | VISIT 25 | [phone] | | | | | | MINUTES | | | | | | | Evaluate | | | +--------+ + + + + + Encounter Details +--------+ + + + + | Date | Type | Department | Care Team | Description | +--------+ + + + + | 07/18/ | Hospital | [facility] | Nikhil, | Primary cutaneous | | 2016 | Encounter | [facility] | Joaquim Benson MD [address] | diffuse large cell | | | | [facility]Y CLIN[facility] [address] [place] | B-cell lymphoma | | | | [address] [place] | [place] [address] | (HCC) (Primary Dx); | | | | [place] [address] | [phone] | Diffuse large B-cell | | | | [phone] | | lymphoma of | | | [...] nt from the original. Hematology/Oncology Progress Note [facility] DANIEL Blanca Pt. Name/Age/: Joaquim Galindo 66 y.o. 1950 Med. Record Number: [id number] Date of admission: 07/18/2016 Identifying Statement: Joaquim Galindo is a 66 y.o. male from [address] [address] with Diffuse Large B-Cell Lymphoma. The patient [...] lower extremity. CT abdomen/Pelvis with contrast 2016 ([facility]). Ex tensive periaortic lymphadenopathy (1.8 cm and 2.1 cm respectively), extensive adenopathy ex tending out along the left common iliac artery and encasing the left external iliac artery ( 4.4 cm) with compromise of the left external iliac vein. 2. Open laparotomy with LEFT ileal retroperitoneal lymph node biopsy ([facility], [facility]) June 242015. Specimen #[id number] ([facility]); Diffuse Large B-Cell lymph raciel, germinal center subtype (75%). 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 Overall Ki-67 expre ssion 70%. Current Assessment & Plan This was an extended, 60 minute, office encounter with Joaquim Galindo "TAMMY" and his wi fe Mara at the [facility] on 07/18/2016. We reviewed his presentation with [...] Assessment and Plan. Complete blood counts from [facility] July 06, 2016 white co unt 7700 hemoglobin 10.9 g/dL hematocrit 33% platelet count 147,000. Complete metabolic panel [facility] July 06, 2016 uric acid 6 .8 [...] prior history of sleep apnea syndrome. The [place] [employer]hes[employer] patient classification is class [...] this chart may have been created with [employer] voice recognition software. Occasi onal wrong-word or [...] ROB | | | | | | [id number] | | | | | | | [...] Number JOAQUIM Patient Number | | | [id number] Date of Study 07/21/2016 Visit Number | | | [id number] Referring Physician | | | NIKHIL Benson Number Date of 1950 | | | Piece [employer] [place] [facility] Age | | | 66 year(s) Interpreting YAMEL DYKES MD | | | Security Operations Engineer Gender | | | Male Nurse Procedure [...] Index: 17 mL/m^2 | | | EF Brcmfdwqp21% Left Ventricle Diastolic Dimension: | | | [...] | LA Vol/BSA Index: 17 mL/m^2 EF Mmbecjaic51% | | | | | | Left [...] Room Number JOAQUIM | | Patient Number [id number] Date of Study 07/21/2016 Visit Number | | [id number] Referring Physician NIKHIL Benson | | Number Date of 1950 [employer] [facility] Age | | 66 year(s) Interpreting YAMEL DYKES MD | | Security Operations Engineer Gender Male NurseProcedureType of Study TTE | [...] Vol/BSA Index: | | 17 mL/m^2 EF Ooibvslmm75% Left Ventricle Diastolic Dimension: | | 4.8 [...] | LA Vol/BSA Index: 17 mL/m^2 EF Ttrqwfemf65% | | | | Left Ventricle | [...]
--- OUTSIDE RECORDS SUMMARY | ~2019-09-27 | XMS | Clinical Summary ---
Demographics + + + | Address | [address] | | | [place] [address] | + + + | Home Phone [...] [place] | | | | | [address] | | + + + + + Care Team Providers + +------+ + | Care Seat Joiner Name | Role | Phone | + [...] + + +---------+------+------+-------+ | gabapentin | Take by mouth | | 4 | 05/25 | | Activ | | (NEURONTIN) 100 mg | Daily. 200 mg in AM, | | | 06/13 | | e | | capsule | 200 mg in | | | 16 [...] Activ | | (NEURONTIN) 300 mg | Daily. | | | 0/20 | | e | | capsule | | | | 16 | | | + + + +---------+------+------+-------+ | carvedilol (COREG) | Take 25 mg by mouth | | 2 | / | | Activ | | 25 mg tablet | 2 times daily (with | | | 3 | | e | | | breakfast & dinner). | | | 16 | | | | | Taking 1.5 [...] | | + + + +---------+------+------+-------+ | traMADol (ULTRAM) | Take 50 mg by mouth | | 0 | 11/0 | | Activ | | 50 mg tablet | every 6 hours as | | | 2/20 | | e | | | needed. | | | 16 | | | + + + +---------+------+------+-------+ | VITAMIN E COMPLEX | Take by mouth. | | 0 | | | Activ | | PO | | | | | | e | + + + +---------+------+------+-------+ | B Complex Vitamins | Take by mouth as | | 0 | | | Activ | | (VITAMIN B COMPLEX | needed. | | | | | e | | PO) | | | | | | | + + + +---------+------+------+-------+ | Multiple Vitamin | Take by mouth. | | 0 | | | Activ | | (MULTIVITAMINS PO) | Micro plex VMz | | | | | e | | | doTERRA supplement | | | | | | + + + +---------+------+------+-------+ | omeprazole | Take 20 mg by mouth | | 0 | | | Activ | | (PRILOSEC) 20 mg | every morning | | | | | e | | capsule | (before breakfast). | | | | | | + [...] | | + + + +---------+------+------+-------+ | traZODone | Take 50 mg by mouth | | 0 | | | Activ | | (DESYREL) 50 mg | nightly. | | | | | e | | tablet | | | | | | | + + + +---------+------+------+-------+ | metFORMIN | Take 500 mg by mouth | | 0 | | | Activ | | (GLUCOPHAGE) 500 mg | Daily. | | | | | e | | tablet | | | | | | | + + + +---------+------+------+-------+ | KRILL OIL PO | Take by mouth. | | 0 | | | Activ | | | | | | | | e | + + + +---------+------+------+-------+ | benzonatate | | | 0 | 09/1 | | Activ | | (TESSALON) 100 mg | | | | 2/20 | | e | | capsule | | | | 18 | | | + + + +---------+------+------+-------+ | Cholecalciferol | Take 10,000 Units by | | 0 | | | Activ | | (VITAMIN D-3) 5000 | mouth Daily. | | | | | e | | units CAPS | | | | | | | + + + +---------+------+------+-------+ | doxycycline | | | 0 | 09/0 | | Activ | | (VIBRAMYCIN) 100 mg | | | | 5/20 | | e | | tablet | | | | 18 | | | + + + +---------+------+------+-------+ [...] + + +---------+------+------+-------+ | lisinopril | Take 1 tablet by | | 0 | 05/3 | | Activ | | (PRINIVIL, ZESTRIL) | mouth Daily. | | | 0/20 | | e | | 10 mg tablet | | | | 18 | | | + + + +---------+------+------+-------+ Active Problems + + + | Problem | Noted Date | + + + | Coronary artery disease involving king salmon coronary artery of | 02/20/2018 | | king salmon heart without angina pectoris | | + + + | Encounter for screening for malignant neoplasm of colon | 11/12/2017 | + + + | Lymphedema of left lower extremity | 08/25/2016 | + + + + + | Last Assessment & Plan: Referral for manual therapy. | + + + + + | Diffuse [...] lower | | extremity venous doppler 2016 ([facility]) No DVT left lower | | extremity. CT abdomen/Pelvis with contrast 2016 | | ([facility]). Extensive periaortic lymphadenopathy (1.8 cm and 2.1 cm | | respectively), extensive adenopathy extending out along the left | | common iliac artery and encasing the left external iliac artery | | (4.4 cm) with compromise of the left external iliac vein.2. Open | | laparotomy with LEFT ileal retroperitoneal lymph node biopsy | | ([facility], [facility]) July 05, 2016. Specimen #[id number] ([facility], | | [facility]); Diffuse Large B-Cell lymphoma, germinal | [...] 04, 2016.10. CT Abdomen/Pelvis | | at [facility] on September 12, 2016; | | [...] protocol).14. Repeat CT scan at | | [facility], [place] on December 01, 2016 | | [...] [address]. [address] scan at [facility] on April 18 | | 2016 demonstrated decreased left iliac lymph node chain | | adenopathy.Region July 04, 2016 September 12, 2016 December 01 | | 2016April 18, 2017 RIGHT Retroperitoneal [...] | mm 16. Repeat CT scan at [facility] on November 21 | | 2017 demonstrated decreased left iliac [...] [address] scan at [facility] on | | September 09, 2018 demonstrated [...] x 8 mm Last Assessment & Plan: Joaquim Leon Josie Christianson. 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 CT | | abdomen/Pelvis with contrast 2016 ([facility]). Extensive | | periaortic lymphadenopathy (1.8 cm and 2.1 cm respectively), | | extensive adenopathy extending out along the left common iliac | | artery and encasing the left external iliac artery (4.4 cm) with | | compromise of the left external iliac vein.2. Open laparotomy | | with LEFT ileal retroperitoneal lymph node biopsy ([facility], [facility]) | | July 05, 2016. Specimen #[id number] ([facility] | | Pathology); Diffuse Large B-Cell lymphoma, [...] CT Abdomen/Pelvis at [facility] on September 12, 2016; Positive [...] years (PRIMA protocol).14. Repeat CT scan at [facility], [place] on December 01, 2016 demonstrated stable | [...] [address]. [address] scan at [facility] on April 18, 2017 demonstrated decreased [...] [address] scan at . | | [facility] on November 21, 2017 demonstrated decreased [...] mm Last | | Assessment & Plan: Joaquim Sanchez Jr. returned to clinic on | | [...] lower extremity venous | | doppler 2016 ([facility]) No DVT left lower extremity. CT | | abdomen/Pelvis with contrast 2016 ([facility]). Extensive | | periaortic lymphadenopathy (1.8 cm and 2.1 cm respectively), | | extensive adenopathy extending out along the left common iliac | | artery and encasing the left external iliac artery (4.4 cm) with | | compromise of the left external iliac vein.2. Open laparotomy | | with LEFT ileal retroperitoneal lymph node biopsy ([facility]) | | July 05, 2016. Specimen #[id number] ([facility] | | Pathology); Diffuse Large B-Cell lymphoma, [...] CT Abdomen/Pelvis at [facility] on September 12, 2016; Positive [...] years (PRIMA protocol).14. Repeat CT scan at [place] [facility] [place], [place] on December 01, 2016 demonstrated stable [...] [address]. [address] scan at [facility] on April 18, 2017 demonstrated decreased [...] [address] scan at [facility] on November 21, 2017 demonstrated decreased [...] 17. 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 [...] | + + + + + | CPAP (continuous positive airway pressure) dependence | 02/26/2014 | + + + | GERD (gastroesophageal reflux disease) | 02/26/2014 | + + + Family History + + +------+ + | Medical History | Relation | Name | Comments | + + +------+ + | Cancer | Father | | | + + +------+ + | Heart attack | Father | | | + + +------+ + | Cancer | Mother | | | + + +------+ + | Heart [...] + + + | Blood Pressure | 116/68 | 03/19/2019 11:36 AM | | | | | PDT | | + + + + + | Pulse | 64 | 03/19/2019 11:36 AM | | | | | PDT [...] + + + + | Weight | 146.6 kg (323 lb 3.2 | 03/19/2019 11:36 AM | | | | oz) | PDT | | + + + + + | Height | 190.5 cm (6' 3") | 03/19/2019 11:36 AM | | | | | PDT | | + + + + + | Body Mass Index | 40.4 | 03/19/2019 11:36 AM | | | | | PDT [...] [place] | | | | | | [id number] | | | | | | | [...] Vaccine: Influenza | | | | | (#1) | 9 | | | + + + + + | AAA Screening | Completed | 04/18/2017, 09/12/2016, | | | | | 07/04/2016 | | + + + + + Results Not on filefrom Last 3 Months Insurance + +--------+ +--------+ +---------+--------+ | Payer | Benefi | Subscriber | Effect | Phone | Address | Type | | | t Plan | ID | isidra | | | | | | / | | Dates | | | | | | Group | | | | | | + +--------+ +--------+ +---------+--------+ | MEDICARE | MEDICA | [id number] | | [phone] | | Medica | | | RE | | 016-Pr | 5 | | re | | | PART A | | esent | | | | | | AND B | | | | | | + +--------+ +--------+ +---------+--------+ | MEDICARE | MEDICA | [id number] | | [phone] | | Medica | | | RE | | 016-Pr | 5 | | re | | | PART A | | esent | | | | | | AND B | | | | | | + +--------+ +--------+ +---------+--------+ | BCBS | BCBS | [id number] | | | | PPO | | [...] | + +--------+ +--------+ + + | JOAQUIM SANCHEZ | Person | Self | | | | | | al/Fam | | | | | | | sona | | | | | + +--------+ +--------+ + + | Joaquim Sanchez | Person | Self | 07/03/ | | 1918 | | | al/Fam | | 1949 | [phone] | [place] | | | [place] | | | 0 (Home) | [address] | + +--------+ +--------+ + + Advance Directives + + + + + | Type | Date Recorded | Patient | Explanation | | | | Boxcar Weigher | | + + + + + | Power of | | | | | Irrigation Manager | | | | + + + + + | Advance | | | | | Directive | | | | + + + + +
--- OUTSIDE RECORDS SUMMARY | ~2019-09-27 | XMS | Encounter Summary ---
Demographics + + + | Address | [address] | | | [place] [address] | + + + | Home Phone [...] [place] | | | | | [address] | | + + + + + Care Team Providers + +------+ + | Care Enrobing Machine Corder Name | Role | Phone | + +------+ + | Kelsey Quintanilla MD | PCP | | + +------+ + Encounter Details +--------+ + + + + | Date | Type | Department | Care Team | Description | +--------+ + + + + | 02/26/ | Orders Only | [facility] | Dawson Lynn MD | | | 2014 | | CONVERSION | [address] | | | | | [address]FACES | [place] [address] | | | | | [phone] | [phone] | | | | | | | [...] [place] | | | | | | [id number] | | | | | | | [...] | | patient was brought to the slab stripper in the fasting state. He was | | | prepped and draped in the usual sterile fashion for radial artery | | | approach. The radial artery was easily accessed with modified | | | Seldinger approach and a 5-[place] glide sheath was placed. A | | | 6-[place] JL-4 catheter was advanced under fluoroscopic guidance [...] mm PROMUS Plus drug-eluting stent. BRIEF HISTORYMr. Josie is a | | 63-year-old male with history of obesity and hyperlipidemia who presented | | with acute coronary syndrome and mildly positive troponin. He was advised to undergo | | coronary angiography for possible coronary intervention. For details regarding his | | presentation, kindly refer to my consultation note. TECHNIQUEThe patient was brought to | | the slab stripper in the fasting state. He was prepped and draped in the usual sterile | | fashion for radial artery approach. The radial artery was easily accessed with modified | | Seldinger approach and a 5-[place] glide sheath was placed. A 6-[place] JL-4 catheter was | | advanced under [...]
--- OUTSIDE RECORDS SUMMARY | ~2019-09-27 | XMS | Encounter Summary ---
Demographics + + + | Address | [address] | | | [place] [address] | + + + | Home Phone | | + + + | Preferred Language | Unknown | + + + | Marital Status | | + + + | Shinto Affiliation | 1013 | + + + | Race | Unknown | + + + | Ethnic Group | Unknown | + + + Author + + + | Author | [facility] | | | and [place] | + + + | Organization | [facility] | | | and [place] | + + + | Address | Unknown | + + + | Phone | Unavailable | + + + Support + + + + + | Name | Relationship | Address | Phone | + + + + + | Mara Galindo | ECON | [address] | | | | | [place] | | | | | [address] | | + + + + + Care Team Providers + +------+ + | Care Turn Down Worker Name | Role | Phone | [...] + + + + | 07/17/ | Telephone | [facility] | [facility], | Other | | 2016 | | [facility] | Gerber Benson MD [address] | | | | [address] | [facility] | | | | | [address] | [place] [address] | | | | | [place] [address] | [phone] | | | | | [phone] | | | +--------+ + + + [...] [place] | | | | | | [address] | | | | | | | | +--------+---------+ + + + documented as of this encounter Visit Diagnoses Not on filedocumented in this encounter"
--- OUTSIDE RECORDS SUMMARY | ~2019-09-27 | XMS | Encounter Summary ---
Demographics + + + | Address | [address] | | | [place] [address] | + + + | Home Phone | | + + + | Preferred Language | Unknown | + + + | Marital Status | | + + + | Faith Affiliation | 1013 | + + + [...] [place] | | | | | [address] | | + + + + + Care Team Providers + +------+ + | Care Sample Distributor Name | Role | Phone | + [...] + + | 09/06/ | Telephone | [facility] | [place]ud, | Other | | 2018 | | [facility] | Gerber Benson MD [address] | | | | | [address] | [facility] | | | | | [address] | [place] [address] | | | | | [place] [address] | [phone] | | | | | [phone] | | | +--------+ + + + [...] [place] | | | | | | [address] | | | | | | | | +--------+---------+ + + + documented as of this encounter Visit Diagnoses Not on filedocumented in this encounter"
--- OUTSIDE RECORDS SUMMARY | ~2019-09-27 | XMS | Encounter Summary ---
Demographics + + + | Address | [address] | | | [place] [address] | + + + | Home Phone [...] [place] | | | | | [address] | | + + + + + Care Team Providers + +------+ + | Care Equipment Maintenance Technician Name | Role | Phone | [...] large b-cell | Gerber Benson, | [address] | | | | | lymphoma, | MD [address] | [place], | | | | | intra-abdomi | [address] | [place] [address] | | | | | nal lymph | [place], | Phone: | | | | | nodes (HCC) | [place] [address] | [phone] | | | | | Procedures | Phone: | Fax: | | | | | [place] | [phone] | [phone] | | | | | INJECTION, | Fax: | | | | | | FAMOTIDINE, | [phone] | | | | | | 20 [...] | +--------+ + + + + | 12/03/ | Hospital | [facility] | [place], | 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 [address] | lymphoma of | | | | INFUSION [address] | [address] [place] | intra-abdominal | | | | [place], | [place] [address] | lymph nodes (HCC) | | | | [place] [address] | [phone] | | | | | [phone] | | | +--------+ + + + [...] + + + +---------+ + + | clindamycin | Take 150 mg by mouth | | 0 | | | | (CLEOCIN) 150 mg | 4 times daily. Take | | | | 8 | | capsule | 2 capsules by mouth | | | | | | | every 6 hours until | | | | | | | gone. | | | | | + + [...] documented as of this encounter Progress Notes Patricia Mercado RN - 12/03/2017 1:41 PM PDTPatient discharged in satisfactory condition. Discharged ambulatory. With family. To home. Verified [...] | | | | | [place], [place] | | | | | | [address] | | | | | | | | +--------+---------+ + + + documented as of this encounter Procedures + +--------+ + + + | Procedure Name | Priori | Date/Time | Associated Diagnosis | Comments | | | ty | | | | + +--------+ + + + | CBC WITH | STAT | 12/03/2017 | Diffuse large | Results for this | | DIFFERENTIAL | | 8:15 AM | B-cell lymphoma of | procedure are in the | | | | PDT | intra-abdominal | results section. | | | | | lymph nodes (HCC) | | + +--------+ + + + | LACTATE | STAT | 12/03/2017 | Diffuse large | Results for this | | DEHYDROGENASE | | 8:15 AM | B-cell lymphoma of | procedure are in the | | | | PDT | intra-abdominal | results section. | | | | | lymph nodes (HCC) | | + +--------+ + + + | COMPREHENSIVE | STAT | 12/03/2017 | Diffuse large | Results for this | | METABOLIC PANEL | | 8:15 AM | B-cell lymphoma of | procedure are in the | | | | PDT | intra-abdominal | results section. | | | | | lymph nodes (HCC) | | + +--------+ + + + documented in this encounter Results CBC with Differential (12/03/2017 8:15 AM PDT) + + + + + + | Component | Value | Ref Range | Performed | Pathologist | | | | | At | Signature | + + + + + + | WBC | 2.9 (L) | 4.0 - 11.0 K/uL | [facility] | | | | | [facility] - | | | | | | LABORATORY | | + + + + + + | RBC | 4.33 | 4.30 - 5.70 | [facility] | [...] + + + + | Hematocrit | 37.4 (L) | 40.0 - 51.0 % | [...] + + + + | Platelet | 99 (L) | 140 - 440 K/uL | [...] + + + + | % | 61.3 | 45.0 - 82.0 % | [facility] | | | Neutrophils | | | [facility] | | | | | | [facility] | | | | | | C[facility] - | | | | | | LABORATORY | | + + + + + + | % | 25.8 | 20.0 - 45.0 % | [facility] | | | Lymphocytes | | | [facility] | | | | | | [facility] | | | | | | CENTER - | | | | | | LABORATORY | | + + + + + + | % Monocytes | 9.6 | 4.0 - 12.0 % | [facility] | | | [facility] | | | [facility] | | [facility] | | | | | | [facility] - | | | | | | LABORATORY | | + + + + + + | % | 2.6 | 0.0 - 5.0 % | [facility] [...] + + + + | Absolute | 1.80 | 1.80 - 8.50 | [facility] | [...] + + | [facility] | [address] | [place] | [phone] | | [facility] | | [address] | | | - LABORATORY | | | | + + + + + Comprehensive Metabolic Panel (12/03/2017 8:15 AM PDT) + + + + + [...] + + + + | Glucose | 109 | 70 - 109 mg/dL | [facility] | | [facility] | [facility] | | | | | | CENTER - | | | | | | LABORATORY | | + + + + + + | BUN | 17 | 7 - 18 mg/dL | [facility] | | | | | | [facility] | | | | | | [facility]ICAL | | | | | | CENTER - | | | | | | LABORATORY | | + + + + + + | Creatinine | 0.94 | 0.60 - 1.30 | [facility] | | | | | mg/dL | [facility] | | | | | | MEDICAL | | | | | | CENTER - | | | | | | LABORATORY | | + + + + + + | eGFR if not | >60Comment: GLOMERULAR | >=60 | [facility] | | | | FILTRATION | mL/min/1.73m2 | [facility] | | | MOZAMBICAN | RATE,ESTIMATED | | MEDICAL | | | | mL/min/1.59i2Nhsy than | | CENTER - | | [...] + + + + | Bilirubin | 0.7Comment: This is an | 0.1 - 1.5 [...] + + + + | AST | 28Comment: This is an | 10 - 42 [...] + + + + | Alkaline | 47Comment: This is an | 40 - 110 [...] + + + + | BUN/Creatin | 18.1 | | [facility] | | | ine [...] + + | [facility] | [address] | [place] | [phone] | | [facility] | | [address] | | | - LABORATORY | | | | + + + + + Lactate Dehydrogenase (12/03/2017 8:15 AM PDT) + +-------+ + + + | Component | Value | Ref Range | Performed | Pathologist | | | | | At | Signature | + +-------+ + + + | LDH TOTAL | 170 | 91 - 180 U/L | [facility] [...] [address] | [place] | [phone] | | [facility] | | [address] | | | - LABORATORY | | [...] | acetaminophen (TYLENOL) tablet | Given | 12/04/19 | 650 mg | | | | 650 mg 650 mg, Oral, ONCE, Mon | | 18 9:32 | | | | | 12/03/17 at 0945, For 1 dose, Give | | AM PDT | | | | | 30 minutes prior to riTUXimab., | | | | | | + +--------+ +--------+------+------+ +---+---+ | | | +---+---+ + +-------+ +-------+---+---+ | famotidine (PEPCID) injection | Given | 12/04/19 | 20 mg | | | | 20 mg 20 mg, Intravenous, ONCE, | | 18 9:33 | | | | | 12/03/17 at 0945, For 1 dose, | | AM PDT [...] heparin 100 units/mL flush | Given | 12/04/19 | 500 | | | | injection 500 Units 500 Units (5 | | 18 1:30 | Units | | | | mL), Intracatheter, PRN, Line | | PM PDT | | | | | Care, Starting 12/03/17 at | | | | | | | 0918 | | | | | | + +-------+ +-------+---+---+ +---+---+ | | | +---+---+ + +---------+ + +---+---+ | riTUXimab (RITUXAN) 1,000 mg in | New Bag | 12/04/19 | 1,000 mg | | | | sodium chloride 0.9% 1,000 mL | | 18 10:05 | | | | | infusion 1,000 mg (rounded from | | AM PDT | | | | | 997.5 mg = 375 mg/m2 | | | | | | | 2.66 m2 Treatment plan recorded | | | | | | | BSA), Intravenous, ONCE, Mon | | | | | | | 12/03/17 at 1015, For 1 dose, | | [...]
--- OUTSIDE RECORDS SUMMARY | ~2019-09-27 | XMS | Encounter Summary ---
Demographics + + + | Address | [address] | | | [place] [address] | + + + | Home Phone [...] [place] | | | | | [address] | | + + + + + Care Team Providers + +------+ + | Care Monitor Tech Name | Role | Phone | + [...] + + + + | 07/21/ | Telephone | [facility] | Mohamud, | Other | | 2016 | | [facility] | Gerber Benson MD [address] | | | | | [address] | [facility] | | | | | [address] | [place] [address] | | | | | [place] [address] | [phone] | | | | | [phone] | | | +--------+ + + + [...] [place] | | | | | | [address] | | | | | | | | +--------+---------+ + + + documented as of this encounter Visit Diagnoses Not on filedocumented in this encounter"
--- OUTSIDE RECORDS SUMMARY | ~2019-09-27 | XMS | Encounter Summary ---
Demographics + + + | Address | [address] | | | [place] [address] | + + + | Home Phone [...] [place] | | | | | [address] | | + + + + + Care Team Providers + +------+ + | Care Industrial Electrical Technician Name | Role | Phone | [...] | | Lymphedema | Mohamud, | [address] [place] | | | | | of left | Joaquim Benson, | [place], | | | | | lower | MD [address] | [place] [address] | | | | | extremity | [address] | Phone: | | | | | Procedures | [place], | [phone] | | | | | CT Abdomen | [place] [address] | Fax: | | | | | Pelvis w | Phone: | [phone] | | | | | Contrast | [phone] | | | | | | | Fax: | | | | | | | [phone] | | +--------+--------+ + + + + Reason for Visit + + + | Reason | Comments | + + + | Follow-up | | + + + Encounter Details +--------+ + + + + | Date | Type | Department | Care Team | Description | +--------+ + + + + | 02/26/ | Hospital | [facility] | Mohamud, | Lymphedema of left | | 2017 | Encounter | [facility] | Joaquim Benson MD [address] | lower extremity | | | | [facility] [address] [place] | (Primary Dx); | | | | [address] [place] | [place] [address] | Diffuse large B-cell | | | | [place] [address] | [phone] | lymphoma of | | | | [phone] | | intra-abdominal | | | | [...] + + + | Blood Pressure | 150/80 | 02/26/2017 10:43 AM | | | | | PDT | | + + + + + | Pulse | 51 | 02/26/2017 10:43 AM | | | | | PDT | | + + + + + | Temperature | 35.6 C (96 F) | 02/26/2017 10:43 AM | | | | | PDT | | + + + + + | Respiratory Rate | 18 | 02/26/2017 10:43 AM | | | | | PDT | | + + + + + | Oxygen Saturation | 96% | 02/26/2017 10:43 AM | | | | | PDT | | + + + + + | Inhaled Oxygen | - | - | | | Concentration | | | | + + + + + | Weight | 143.7 kg (316 lb | 02/26/2017 10:43 AM | | | | 12.8 oz) | PDT | | + + + + + | Height | - | - | | + + + + + | Body Mass Index | 40.67 | 07/18/2016 4:16 PM | | | [...] encounter Progress Notes Joaquim Tejeda MD - 02/26/2017 10:29 AM PDTFormatting of this note might be differe nt from the original. Hematology/Oncology Progress Note [facility] DANIEL Blanca Pt. Name/Age/: Joaquim Sanchez Jr. 66 y.o. 1950 [facility]. Record Number: [id number] Date of admission: 02/26/2017 Identifying Statement: Joaquim Sanchez Jr. is a 66 y.o. male from [address] [address] with Mixed Diffuse Large B-Cell/Follicular Lymphoma. The [...] node biopsy (Praveen, ESTEE) June 242015. Specimen #[id number] ([facility]); Diffuse Large B-Cell lymph raciel, [...] September 04, 2016. 10. CT Abdomen/Pelvis at [facility] on September 12, 2016; Positive Response [...] (PRIMA protocol). 14. Repeat CT scan at [facility], [place] on December 01, [address] able [...] 21 mm Current Assessment & Plan Joaquim Sanchez Jr. returned to clinic on 02/26/2017 with his , Mara, for follow -up and his third cycle of maintenance rituximab for his composite diffuse Large B-Cell Lymp selina, at least stage III. The interval history is notable for the fact that Rios's belt weaver prescribed Sinemet 10/ 100 for his restless leg syndrome which was ineffective and Rios stopped therapy. Review of systems is notable for the fact that Rios's fatigue is better, his nausea is bet ter, night sweats have resolved and not recurred, dysphagia has resolved and not recurred, d yspepsia has resolved and not recurred, numbness in the fingers have resolved however he sti ll has dysesthesias in his heels. His dysuria has resolved. His insomnia and decreased men evie acuity is unchanged. The separation of his toenails from the nail nailbeds culminated i n the nails being extracted by his belt weaver and these are growing back slowly. Headaches have resolved. Decreased visual acuity has resolved. Chest pain or palpitations and dyspne a on exertion have resolved. 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 Clinica l exam is notable for stable left lower extremity lymphedema. Rios is working with Nemesio at [facility] physical therapy who is administering manual therapy to Rios's left lower extremity lymphedema and fitting him for a more constricting compression garment. 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 Plan; proceed today with cycle #3 of a planned 24 cycles of rituximab maintenance therapy 3 75 mg meter squared every 2 months for 2 years. I asked Rios to undergo repeat CT scan of the abdomen and pelvis when he returns in 2 months to reevaluate the persistent 31 mm x 21 m m left iliac lymph node seen on his December 01, 2016 exam. The patient requested a refill for his lorazepam. Lymphedema of left lower extremity Review of Systems: REVIEW OF SYSTEMS Constitutional: Reports energy level is ok, would like it to be better. . Denies high fever s, shaking chills, anorexia, nausea, vomiting, weight loss, or night sweats. Appetite witho ut changes. Ear, Nose, Mouth, Throat: Reports intermittent sores in mouth, none at this time. Reports o ccasional tinnitus. Denies dysphagia. Cardiovascular: Reports dyspnea with exertion. Denies shortness of breath, chest pain, palp itations or orthopnea. Respiratory: Denies cough, hemoptysis, or sputum production. Gastrointestinal: Reports occasional bright red blood on paper after bowel movement. Notice s this more on days he is exceptionally active. Denies abdominal pain, constipation, diarrhe a, melena. Genitourinary: Denies hematuria or dysuria. Musculoskeletal: Reports increased pain in shoulders, knees and ankles. Neurologic: Reports seeing "floaters" in left eye for the last few months. Reports minor he adache today. Denies headache or numbness/tingling of the extremities. Endocrine: Reports left leg edema, decreases at night. Denies heat/cold intolerance. Hematologic: Denies spontaneous bruising or bleeding. Integumentary: Denies rash, wounds or other skin concerns. Pain: 2/10 headache. Note: Here for follow up, labs and 4 hour treatment. My chart: Active. Scheduled Medications: Current Outpatient Prescriptions Medication Sig [...] incarcerated Internal Jugular Bard Port-a-cath Right 08/11/2017 Pravene KNEE SURGERY Bilateral stent 2013 RCA TONSILLECTOMY [...] Lymphedema of left lower extremity Objectives: Temp: 35.6 C (96 F) BP: 150/80 Pulse: 51 Resp: 18 SpO2: 96 % on Min/Max Temp past 24 hours:Temp Av.6 C (96 F) Min: 35.6 C (96 F) Max: 35.6 C (96 F) No intake or output data in the 24 hours ending 02/27/17 0734 Wt. Admission: Weight: (!) 143.7 kg (316 lb 12.8 oz) Wt. Current: Weight: (!) 143.7 kg (316 lb 12.8 oz) Wt Readings from Last 3 Encounters: 02/26/17 (!) 143.7 kg (316 lb 12.8 oz) 01/01/17 (!) 144.7 kg (319 lb 0.1 oz) 12/05/16 (!) 144.5 kg (318 lb 9.6 oz) Body mass index is 40.67 kg/m. Physical Exam: General: The patient is [...] JOAQUIM SANCHEZ JR. ( ) as of 02/27/2017 07:29 Ref. Range 02/26/2017 09:54 WBC Latest Ref Range: 4.0 - 11.0 K/uL 2.7 (L) RBC: Latest Ref Range: 4.30 - 5.70 M/uL 4.40 Hgb Latest Ref Range: 13.5 - 18.0 g/dL 12.8 (L) Hct, Final Latest Ref Range: 40.0 - 51.0 % 37.3 (L) MCV Latest Ref Range: 83.0 - 101.0 fL 84.8 MCH Latest Ref Range: 28.0 - 35.0 pg 29.0 MCHC Latest Ref Range: 32.0 - 36.0 g/dL 34.2 RDW-CV Latest Ref Range: <15.0 % 15.6 (H) Platelet Count Latest Ref Range: 140 - 440 K/uL 94 (L) MPV Latest Units: fL 9.0 Absolute Neutrophils Latest Ref Range: 1.80 - 8.50 K/uL 1.60 (L) Absolute Lymphocytes Latest Ref Range: 0.60 - 3.20 K/uL 0.70 Absolute Monocytes Latest Ref Range: 0.00 - 1.00 K/uL 0.30 Absolute Eosinophils Latest Ref Range: 0.00 - 0.40 K/uL 0.10 Absolute Basophils Latest Ref Range: 0.00 - 0.10 K/uL 0.00 % Neutrophils Latest Ref Range: 45.0 - 82.0 % 59.0 % Lymphocytes Latest Ref Range: 20.0 - 45.0 % 26.4 % Monocytes Latest Ref Range: 4.0 - 12.0 % 9.5 % Eosinophils Latest Ref Range: 0.0 - 5.0 % 4.4 % Basophils Latest Ref Range: 0.0 - 1.0 % 0.7 NA Latest Ref Range: 136 - 149 mmol/L 140 K Latest Ref Range: 3.5 - 5.1 mmol/L 3.8 Chloride Latest Ref Range: 98 - 109 mmol/L 109 Carbon dioxide Latest Ref Range: 24 - 31 mmol/L 25 ANION GAP Latest Ref Range: 3 - 16 mmol/L 6 GLUCOSE Latest Ref Range: 70 - 109 mg/dL 121 (H) BUN Latest Ref Range: 7 - 18 mg/dL 16 Creatinine Latest Ref Range: 0.60 - 1.30 mg/dL 0.92 BUN/CREA Unknown 17.4 ALBUMIN Latest Ref Range: 3.2 - 5.0 g/dL 3.9 Albumin/Globulin ratio Latest Ref Range: 0.8 - 2.0 2.1 (H) Total protein Latest Ref Range: 6.0 - 7.8 g/dL 5.8 (L) EGFR IF NOT Latest Ref Range: >=60 mL/min/1.73m2 >60 Calcium Latest Ref Range: 8.3 - 10.5 mg/dL 9.5 ALK PHOS Latest Ref Range: 40 - 110 U/L 49 ALT (SGPT) (REF) Latest Ref Range: 6 - 45 U/L 25 AST (SGOT) (REF) Latest Ref Range: 10 - 42 U/L 23 LDH TOTAL Latest Ref Range: 91 - 180 U/L 150 BILIRUBIN TOTAL Latest Ref Range: 0.1 - 1.5 mg/dL 0.6 GLOBULIN Latest Ref Range: 2.1 - 3.8 g/dL 1.9 (L) Pharmacovigilance: Results for JOAQUIM SANCHEZ JR. ( [...] 84, Issue 3, pp 242-247 and Faustino ePpe, Anupam Azevedo, Horacio Brooks, Berkley Downey, Jesusita Couch, Js Dubose, Parris Pineda i, and Aman Power "Delayed-Onset Peripheral Blood Cytopenia after Rituximab: Frequency a nd Risk Factor Assessment in a Consecutive Series of 77 Treatments" Leukemia & Lymphoma 2006 , Vol. 47, No. 6, pp 5676-9057. In the first article, an observational study [...] observational study, by Marques et al from [facility] th at reports neutropenia developed [...] mouth every 6 hours as needed (Nausea/Vomiting). Take 1 tablet by m outh every 6 hours as needed (Nausea/Vomiting). Discontinued Medications No medications on file Procedure note: Day 1, Rituxan every 2 months x 2 years # 3 (56-day cycle) Completed; Released on 02/26/2017; Originally planned for 02/26/2017 Labs Lactate Dehydrogenase STAT, ONE TIME, Sun02/26/17 at 0955, For 1 occurrence OrderHistory Comprehensive Metabolic Panel STAT, ONE TIME, Sun02/26/17 at 0955, For 1 occurrence OrderHistory CBC with Differential STAT, ONE TIME, Sun02/26/17 at 0955, For 1 occurrence OrderHistory Nursing Orders OK to proceed with chemotherapy (Not Released) 02/26/17: The treating provider acknowledges that the WBC is slightly low and that the neutr ophil count is slightly low, but is ascribing this to delayed hematopoietic recovery from be ndamustine and not from delayed onset neutropenia from rituximab and deems that it is save a nd appropriate to proceed with maintenance rituximab as prescribed. INFORMED CONSENT: The nature and [...] for discharge (Not Released) QFU CBC,CMP,LDH Port DRAW, CT abdomen/pelvis IN 2 months with 4 hour infusion. OrderH istory Pre-Medications acetaminophen (TYLENOL) tablet 650 mg 650 mg, Oral, ONCE, Sun02/26/17 at 1215, For 1 dose Give 30 minutes prior to riTUXimab. OrderHistory famotidine (PEPCID) injection 20 mg 20 mg, Intravenous, ONCE, Sun02/26/17 at 1215, For 1 dose Prior to administration, prepare a 20 mg dose by diluting 2 mL of famotidine 10 mg/mL to 10 mL with normal saline. OrderHistory CHEMOTHERAPY riTUXimab (RITUXAN) 1,000 mg in sodium chloride 0.9% 1,000 mL infusion 1,000 mg (rounded from 997.5 mg = 375 mg/m2 2.66 m2 Treatment plan recorded BSA), Intra venous, ONCE, Sun02/26/17 at 1245, For 1 dose Initial infusion: Start at [...] (5 mL), Intercatheter, PRN, Line Care, Starting 6/5/17 at 1157 OrderHist ory PRN Medications LORazepam (ATIVAN) injection 1 mg (Not Released) 1 mg, Intravenous, EVERY 4 HOURS PRN, Anxiety, Starting when released, Until Discontinued OrderHistory Infusion Reaction Orders Monitor patient (Not Released) Monitor patient during riTUXimab infusion for fever, chills, rigors, bronchospasm, angina, edema, hypotension, nausea. OrderHistory meperidine (DEMEROL) 25 mg/mL injection 25 mg (Not Released) 25 mg, Intravenous, EVERY 2 HOURS PRN, severe chills/rigors with riTUXimab, Starting when released, for 24 hours OrderHistory Stop infusion if: (Not Released) Stop infusion if an infusion reaction is suspected (pruritis, flushing, rhinitis, fever, r adebayo, back pain, dyspnea). Notify MD. OrderHistory Check vital signs (Not Released) Check vital signs q5 minutes until back to baseline, then q15 minutes until resolution of symptoms. OrderHistory Start oxygen (Not Released) Start oxygen at 6-8 LPM for O2 <= 90%. OrderHistory diphenhydrAMINE (BENADRYL) injection 25 mg (Not Released) 25 mg, Intravenous, EVERY 15 MIN PRN, Infusion reaction, Starting when released, for 2 dos es Administer as needed for infusion reaction. OrderHistory methylPREDNISolone sodium succinate (solu-MEDROL) 62.5 mg/mL injection 125 mg (Not Rele ased) 125 mg, Intravenous, ONCE PRN, infusion reaction, Starting when released, for 1 dose Administer as needed for infusion reaction. Choose only one steroid. Mix with 2 mL provided diluent to make 62.5 mg/mL. OrderHistory dexamethasone (DECADRON) 20 mg in sodium chloride 0.9% 50 mL IVPB (Not Released) 20 mg, Intravenous, Administer over 15 Minutes, ONCE PRN, infusion reaction, Starting when released, for 1 dose Administer as needed for infusion reaction. Choose only one steroid. OrderHistory Resume infusion if: (Not Released) Resume infusion when symptoms resolve, as directed by MD. OrderHistory Nursing Orders Anaphylaxis orders (Not Released) Add order group [facility] ANAPHYLAXIS TREATMENT if a severe hypersensitivity reaction or anaphyl axis is suspected (bronchospasm, stridor, wheezing, respiratory depression, cardiac arrhythm ia, generalized urticaria, SBP <= 80 mm Hg or 30 mm Hg drop from baseline, angioedema, shock , loss of consciousness). Stop infusion, activate code blue and notify . OrderHistory JOAQUIM TEJEDA MD Portions of this chart may have been created with [employer] voice recognition software. Occasi onal wrong-word or [...] | | | | | D[place] | | | | | | [id number] | | | | | | | | +--------+---------+ + + + documented as of this encounter Results CT Abdomen Pelvis w [...]
--- OUTSIDE RECORDS SUMMARY | ~2019-09-27 | XMS | Encounter Summary ---
Demographics + + + | Address | [address] | | | [place] [address] | + + + | Home Phone | | + + + | Preferred Language | Unknown | + + + | Marital Status | | + + + | Holiness Affiliation | 1013 | + + + | Race | Unknown | + + + | Ethnic Group | Unknown | + + + Author + + + | Author | [facility] | | | and [place] | + + + | Organization | [facility] | | | [...] [place] | | | | | [address] | | + + + + + Care Team Providers + +------+ + | Care Conduit Bender Name | Role | Phone | + +------+ + | Earle Chacko MD | PCP | | + +------+ + Encounter Details +--------+ + + + + | Date | Type | Department | Care Team | Description | +--------+ + + + + | 05/20/ | Hospital | [facility] | Mohamud, | Diffuse large B-cell | | 2018 | Encounter | [facility] | Joaquim Benson MD [address] | lymphoma of | | | | [facility] [address] [place] | intra-abdominal | | | | [address] [place] | [place] [address] | lymph nodes (HCC) | | | | [place] [address] | [phone] | | | | | [phone] | | | +--------+ + + + [...] + + + | Blood Pressure | 134/81 | 05/20/2018 8:35 AM | | | | | PDT | | + + + + + | Pulse | 56 | 05/20/2018 8:35 AM | | | | | PDT | | + + + + + | Temperature | 35.9 C (96.6 F) | 05/20/2018 8:35 AM | | | | | PDT | | + + + + + | Respiratory Rate | 20 | 05/20/2018 8:35 AM | | | | | PDT | | + + + + + | Oxygen Saturation | 95% | 05/20/2018 8:35 AM | | | | | PDT | | + + + + + | Inhaled Oxygen | - | - | | | Concentration | | | | + + + + + | Weight | 142.4 kg (313 lb 15 | 05/20/2018 8:35 AM | | | | oz) | PDT | | + + + + + | Height | - | - | | + + + + + | Body Mass Index | 40.31 | 02/20/2018 1:19 PM | | | [...] encounter Progress Notes Joaquim Mallory MD - 05/20/2018 8:19 AM PDTFormatting of this note might be differe nt from the original. Hematology/Oncology Progress Note Merged With [facility] [place] Pt. Name/Age/: Joaquim Sanchez Jr. 67 y.o. 1950 [facility]. Record Number: [id number] Date of admission: 05/20/2018 The patient's primary care provider is Kelsey Quintanilla MD. Identifying Statement: Joaquim Sanchez Jr. is a 67 y.o. male from [address] [place] [address] with Mixed Diffuse Large B-Cell/Follicular Lymphoma in [...] lower extremity. CT abdomen/Pelvis with contrast 2016 ([facility]). Ex tensive periaortic lymphadenopathy (1.8 cm and 2.1 cm respectively), extensive adenopathy ex tending out along the left common iliac artery and encasing the left external iliac artery ( 4.4 cm) with compromise of the left external iliac vein. 2. Open laparotomy with LEFT ileal retroperitoneal lymph node biopsy ([facility]) June 242015. Specimen #[id number] ([facility]); Diffuse Large B-Cell [...] September 04, 2016. 10. CT Abdomen/Pelvis at [facility] on September 12, 2016; Positive [...] (PRIMA protocol). 14. Repeat CT scan at [place], [place] on December 01, [address] [...] [address]. [address] scan at [facility] on April 18, 2017 demonstrated decreased [...] [address] scan at [facility] on November 21, 2017 demonstrated decreased left iliac lymph node chain adenopathy. Region 06/2016 RIGHT Retroperitoneal 18 mm 6 mm resolved [...] Joaquim Sanchez Jr. 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 Interval history is notable for the fact that Rios has been through two courses of antibio tics to recover from an upper respiratory tract infection. Review of systems is notable for the fact that dyspnea and cough have improved. Clinical exam is notable for clear lung moore bilaterally. Laboratory exam is negative for any signs of jkpueef-ptxyk-nvgfvtplixc. 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 Recurrent upper respiratory tract infection. Plan; Proceed with Cycle #11 of maintenance rituximab today. Return on July 15, 2018 for his last dose of maintenance rituximab, to be followed by re peat CT of abdomen/pelvis to monitor ongoing disease status. 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 We agreed to add quantitative IGG, IGA, IGM to his follow up labs in June and re-engage in the discussion regarding IVIG treatment afterwards. Review of Systems: REVIEW OF SYSTEMS Constitutional: Reports energy level is low. Reports he recently had a respiratory infectio n, states temp was about 100 F at that time. Reports some recent night sweats. Down 4 kg sin ce 03/25/18. Denies shaking chills, anorexia, nausea, vomiting, weight loss. Appetite with out changes. Ear, Nose, Mouth, Throat: Reports a sore in his mouth recently, but states it is clearing. Reports intermittent tinnitus, states more prevalent lately. Denies dysphagia. Cardiovascular: Reports shortness of breath with recent respiratory infection, but this has improved. Denies dyspnea on exertion, chest pain, palpitations or orthopnea. Respiratory: Reports cough continues from recent respiratory infection. Denies hemoptysis, or sputum production. Gastrointestinal: Denies abdominal pain, constipation, diarrhea, melena, or bright red bloo d per rectum. Genitourinary: Denies hematuria or dysuria. Musculoskeletal: Reports intermittent joint pain continues. Currently in back. Neurologic: Reports blurry vision after chemo, improves after, but is still more blurry aruna n what it used to be. Reports numbness/tingling continues in feet. Denies headache. Endocrine: Reports left leg edema continues. Denies heat/cold intolerance. Hematologic: Denies spontaneous bruising or bleeding. Integumentary: Denies rash, wounds or other skin concerns. Pain: 3/10 back pain. Note: Here for follow up, labs and 4 hour treatment. My chart: Declined Scheduled Medications: Current Outpatient Prescriptions Medication Sig [...] Objectives: Temp: 35.9 C (96.6 F) BP: 134/81 Pulse: 56 Resp: 20 SpO2: 95 % on Min/Max Temp past 24 hours:No Data Recorded No intake or output data in the 24 hours ending 05/25/18 0847 Wt. Admission: Weight: (!) 142.4 kg (313 lb 15 oz) Wt. Current: Weight: (!) 142.4 kg (3 13 lb 15 oz) Wt Readings from Last 3 Encounters: 05/20/18 (!) 142.4 kg (313 lb 15 oz) 03/25/18 (!) 146 kg (321 lb 14 oz) 01/28/18 (!) 147.6 kg (325 lb 6.4 oz) Body mass index is 40.31 kg/m. Physical Exam: General: The patient is [...] Trejo, Vy Rodriguez., Armando Diamond., Fatoumata, P ChristianP.: Toxicity And Response Criteria Of The Eastern [...] Assessment and Plan. Results for JOAQUIM SANCHEZ Carolyn BOX ( ) as of 05/25/2018 08:45 Ref. Range 05/20/2018 08:09 WBC Latest Ref Range: 4.0 - 11.0 K/uL 3.1 (L) RBC COUNT Latest Ref Range: 4.30 - 5.70 M/uL 4.15 (L) Hgb Latest Ref Range: 13.5 - 18.0 g/dL 12.7 (L) Hct, Final Latest Ref Range: 40.0 - 51.0 % 36.2 (L) MCV Latest Ref Range: 83.0 - 101.0 fL 87.2 MCH Latest Ref Range: 28.0 - 35.0 pg 30.5 MCHC Latest Ref Range: 32.0 - 36.0 g/dL 35.0 RDW-CV Latest Ref Range: <15.0 % 16.4 (H) Platelet Count Latest Ref Range: 140 - 440 K/uL 130 (L) MPV Latest Units: fL 8.6 Absolute Neutrophils Latest Ref Range: 1.80 - 8.50 K/uL 2.10 Absolute Lymphocytes Latest Ref Range: 0.60 - 3.20 K/uL 0.70 Absolute Monocytes Latest Ref Range: 0.00 - 1.00 K/uL 0.20 Absolute Eosinophils Latest Ref Range: 0.00 - 0.40 K/uL 0.10 Absolute Basophils Latest Ref Range: 0.00 - 0.10 K/uL 0.00 % Neutrophils Latest Ref Range: 45.0 - 82.0 % 68.3 % Lymphocytes Latest Ref Range: 20.0 - 45.0 % 23.2 % Monocytes Latest Ref Range: 4.0 - 12.0 % 5.4 % Eosinophils Latest Ref Range: 0.0 - 5.0 % 2.4 % Basophils Latest Ref Range: 0.0 - 1.0 % 0.7 NA Latest Ref Range: 136 - 149 mmol/L 136 K Latest Ref Range: 3.5 - 5.1 mmol/L 3.9 Chloride Latest Ref Range: 98 - 109 mmol/L 103 Carbon dioxide Latest Ref Range: 24 - 31 mmol/L 26 ANION GAP Latest Ref Range: 3 - 16 mmol/L 7 GLUCOSE Latest Ref Range: 70 - 109 mg/dL 129 (H) BUN Latest Ref Range: 7 - 18 mg/dL 19 (H) Creatinine Latest Ref Range: 0.60 - 1.30 mg/dL 0.87 BUN/CREA Unknown 21.8 ALBUMIN Latest Ref Range: 3.2 - 5.0 g/dL 3.6 Albumin/Globulin ratio Latest Ref Range: 0.8 - 2.0 1.7 Total protein Latest Ref Range: 6.0 - 7.8 g/dL 5.7 (L) EGFR IF NOT Latest Ref Range: >=60 mL/min/1.73m2 >60 Calcium Latest Ref Range: 8.3 - 10.5 mg/dL 9.4 ALK PHOS Latest Ref Range: 40 - 110 U/L 52 ALT (SGPT) (REF) Latest Ref Range: 6 - 45 U/L 21 AST (SGOT) (REF) Latest Ref Range: 10 - 42 U/L 21 LDH TOTAL Latest Ref Range: 91 - 180 U/L 136 Bilirubin Total (Calculated) Latest Ref Range: 0.1 - 1.5 mg/dL 0.6 GLOBULIN Latest Ref Range: 2.1 - 3.8 g/dL 2.1 Pharmacovigilance: Results for JOAQUIM SANCHEZ JR. ( ) as of 11/08/2016 09:09 Ref. Range 10/26/2016 11:35 LVEF-TTE TRANSTHORACIC ECHO Unknown 70 Outside expert review of the the use of maintenance Rituxan is received and reviewed. Refer ences are made to Daniel Arredondo, Genaro Chen, Dorothea gallardo, Jus Reyes, Carolyn Angel, and [...] 2006 , Vol. 47, No. 6, pp 2487-0327. In the first article, an observational study by Niels bonilla al, late-onset grade 4 neutropeni a occurred [...] observational study, by Marques et al from [facility] th at reports neutropenia developed in [...] Medications No medications on file Discontinued Medications ACYCLOVIR (ZOVIRAX) 200 MG CAPSULE Take 200 mg by mouth every 4 hours (while awake). Procedure note: Day 1, Rituxan every 2 months x 2 years #11 (56-day cycle) Completed; Released on 05/20/2018; Originally planned for 05/20/2018 Labs Lactate Dehydrogenase STAT, ONE TIME, Sun05/20/18 at 0810, For 1 occurrence OrderHistory Comprehensive Metabolic Panel STAT, ONE TIME, Sun05/20/18 at 0810, For 1 occurrence OrderHistory CBC with Differential STAT, ONE TIME, Sun05/20/18 at 0810, For 1 occurrence OrderHistory PRN Medications ethyl chloride spray (Discontinued - Patient Discharge) Topical, PRN, Pain, Starting Sun05/20/18 at 0809 OrderHistory Nursing Orders OK to proceed with chemotherapy (Not Released) 05/20/18-- INFORMED CONSENT: The nature and character of [...] proceed with treatment with rituximab.Electronically signed by: Joaquim robles MD 05/20/2018 9:06. OrderHistory Plans for discharge (Not Released) -- Per Dr. Mallory, CT scan after cycle # 12 (last one) to assess response. ST [facility] LABS/PORT IN 2 months with 4 hour infusion- LAST ONE!! OrderHistory Pre-Medications acetaminophen (TYLENOL) tablet 650 mg 650 mg, Oral, ONCE, Sun05/20/18 at 0913, For 1 dose Give 30 minutes prior to riTUXimab. OrderHistory famotidine (PEPCID) injection 20 mg 20 mg, Intravenous, ONCE, Sun05/20/18 at 0913, For 1 dose Dilute 2 mL of famotidine with 8 mL of normal saline to a final concentration of 2 mg/mL. A dminister ordered dose over a period of at least 2 minutes. OrderHistory CHEMOTHERAPY riTUXimab (RITUXAN) 1,000 mg in sodium chloride 0.9% 1,000 mL infusion 1,000 mg (rounded from 997.5 mg = 375 mg/m2 2.66 m2 Treatment plan recorded BSA), Intra venous, ONCE, Sun05/20/18 at 0943, For 1 dose Initial infusion: Start at [...] - Patient Discharge) 500 Units (5 mL), Intracatheter, PRN, Line Care, Starting Sun05/20/18 at 0912 OrderHis tory Joaquim Mallory MD Portions of this chart may have been created with Flux voice recognition software. Occasi onal wrong-word or [...] | | | | | [place] | | | | | | [address] | | | | | | | | +--------+---------+ + + + documented as of this encounter Visit Diagnoses + + | Diagnosis | + + | Diffuse large B-cell lymphoma of intra-abdominal lymph nodes (HCC) Other malignant | | lymphomas of intra-abdominal lymph nodes | + + documented in this encounter
--- OUTSIDE RECORDS SUMMARY | ~2019-09-27 | XMS | Encounter Summary ---
Demographics + + + | Address | [address] | | | [place] [address] | + + + | Home Phone | | + + + | Preferred Language | Unknown | + + + | Marital Status | | + + + | Uatsdin Affiliation | 1013 | + + + | Race | Unknown | + + + | Ethnic Group | Unknown | + + + Author + + + | Author | [facility] | | | and [place] | + + + | Organization | [facility] | [...] [place] | | | | | [address] | | + + + + + Care Team Providers + +------+ + | Care Landscaping Crew Leader Name | Role | Phone | + +------+ + | Kelsey Quintanilla MD | PCP | | + +------+ + Encounter Details +--------+ + + + + | Date | Type | Department | Care Team | Description | +--------+ + + + + | 04/18/ | Orders Only | [facility] | Provider, | | | 2019 | | SYSTEM GENERIC OP | MD [address] | | | | | [address] | [address]. | | | | | [address] [place], [place] | [place] [address] | | | | | [address] | | | | | | [phone] | | | +--------+ + + + [...] | | | | | [place], [place] | | | | | | [address] | | | | | | | | +--------+---------+ + + + documented as of this encounter Visit Diagnoses Not on filedocumented in this encounter"
--- OUTSIDE RECORDS SUMMARY | ~2019-09-27 | XMS | Encounter Summary ---
Demographics + + + | Address | [address] | | | [place] [address] | + + + | Home Phone [...] | Author | [facility] | | | and [place] | + + + | Organization | [facility] | | [...] [place] | | | | | [address] | | + + + + + Care Team Providers + +------+ + | Care Residential Service Technician Name | Role | Phone [...] | ON[facility]OGY CLINIC [address] [facility] | | | | | [address] | [place] [address] | | | | | [place] [address] | [phone] | | | | | [phone] | | | +--------+ + + + [...] [place] | | | | | | [address] | | | | | | | | +--------+---------+ + + + documented as of this encounter Visit Diagnoses Not on filedocumented in this encounter"
--- OUTSIDE RECORDS SUMMARY | ~2019-09-27 | XMS | Clinical Summary ---
Demographics + + + | Address | [address] | | | [place] [address] | + + + | Home Phone | | + + + | Preferred Language | Unknown | + + + | Marital Status | | + + + | Mosque Affiliation | 1013 | + + + [...] [place] | | | | | [address] | | + + + + + Care Team Providers + +------+ + | Care Foundation Digger Name | Role | Phone | + [...] + + | Coronary artery disease involving k[place] coronary artery of | 02/20/2018 | | [place] heart without angina pectoris | | + [...] lower | | extremity venous doppler 2016 ([facility]) No DVT left lower | | extremity. CT abdomen/Pelvis with contrast 2016 | | ([facility]). Extensive periaortic lymphadenopathy (1.8 cm and 2.1 cm | | respectively), extensive adenopathy extending out along the left | | common iliac artery and encasing the left external iliac artery | | (4.4 cm) with compromise of the left external iliac vein.2. Open | | laparotomy with LEFT ileal retroperitoneal lymph node biopsy | | ([facility], [facility]) July 05, 2016. Specimen #[id number] ([facility], | | [place] [facility]); Diffuse Large B-Cell lymphoma, germinal | [...] 04, 2016.10. CT Abdomen/Pelvis | | at [facility] on September 12, 2016; | | [...] protocol).14. Repeat CT scan at | | [facility], [place] on December 01, 2016 | | [...] [address] scan at [facility] on April 18 | | 2016 demonstrated [...] | mm 16. Repeat CT scan at [facility] on November 21 | | 2017 demonstrated [...] [address] scan at [facility] on | | September 09, [...] negative for any signs of | | [id number]-[id number].Assessment; composite mixed diffuse | | large B-cell/follicular [...] lower extremity venous | | doppler 2016 ([facility]) No DVT left lower extremity. CT | | abdomen/Pelvis with contrast 2016 ([facility]). Extensive | | periaortic lymphadenopathy (1.8 cm and 2.1 cm respectively), | | extensive adenopathy extending out along the left common iliac | | artery and encasing the left external iliac artery (4.4 cm) with | | compromise of the left external iliac vein.2. Open laparotomy | | with LEFT ileal retroperitoneal lymph node biopsy ([facility], [facility]) | | July 05, 2016. Specimen #[id number] ([facility] | | Pathology); Diffuse Large B-Cell lymphoma, [...] on September 04, 2016.10. CT Abdomen/Pelvis at [facility] on September 12, 2016; Positive Response | [...] years (PRIMA protocol).14. Repeat CT scan at [facility] [place] on December 01, 2016 demonstrated stable | [...] Repeat CT scan at . | | [facility] on November 21, 2017 demonstrated decreased [...] lower extremity venous | | doppler 2016 ([facility]) No DVT left lower extremity. CT | | abdomen/Pelvis with contrast 2016 ([facility]). Extensive | | periaortic lymphadenopathy (1.8 cm and 2.1 cm respectively), | | extensive adenopathy extending out along the left common iliac | | artery and encasing the left external iliac artery (4.4 cm) with | | compromise of the left external iliac vein.2. Open laparotomy | | with LEFT ileal retroperitoneal lymph node biopsy ([facility]) | | July 05, 2016. Specimen #[id number] ([facility] | | Pathology); Diffuse Large B-Cell lymphoma, [...] jugular Port-a-Cath | | by Dr. David oMrton on August 10, 2016.8. Cycle#2 of RCHOP plus | | Neulasta on August 14, 2016.9. Cycle#3 of RCHOP plus Neulasta | | on September 04, 2016.10. CT Abdomen/Pelvis at [facility] on September 12, 2016; Positive Response | [...] years (PRIMA protocol).14. Repeat CT scan at [facility], [place], [place] on December 01, 2016 demonstrated stable [...] [address]. [address] scan at [facility] on November 21, 2017 demonstrated [...] 17. Repeat CT scan | | at [facility] on September 09, 2018 demonstrated [...] negative for any signs of | | pssdikh-ywtag-hfskycpsryj.Assessment; composite mixed diffuse | | large B-cell/follicular [...] [place] | | | | | | [address] | | | | | | | [...] +--------+ +---------+--------+ | MEDICARE | MEDICA | [id number] | | [phone] | | Medica | | | RE | | 016-Pr | 5 | | re | | | PART A | | esent | | | | | | AND B | | | | | | + +--------+ +--------+ +---------+--------+ | MEDICARE | MEDICA | [id number] | | [phone] | | Medica | | | RE | | 016-Pr | 5 | | re | | | PART A | | esent | | | | | | AND B | | | | | | + +--------+ +--------+ +---------+--------+ | BCBS | BCBS | [id number] | | | | PPO | | [...] | | al/Fam | | 1949 | [phone] | [place] | | | [place] | | | 0 (Home) | [address] | + +--------+ +--------+ + + Advance Directives + + + + + | Type | Date Recorded | Patient | Explanation | | | | Tile Helper | | + + + + + | Power of | | | | | Curing Pickling Packer | | | | + + + + + | Advance | | | | | Directive | | | | + + + + +
--- OUTSIDE RECORDS SUMMARY | ~2019-09-27 | XMS | Encounter Summary ---
Demographics + + + | Address | [address] | | | [place] [address] | + + + | Home Phone | | + + + | Preferred Language | Unknown | + + + | Marital Status | | + + + | Synagogue Affiliation | 1013 | + + + | Race | Unknown | + + + | Ethnic Group | Unknown | + + + Author + + + | Author | [facility] | | | and [place] | + + + | Organization | [facility] | | [...] [place] | | | | | [address] | | + + + + + Care Team Providers + +------+ + | Care Staff Air Tactical Officer Name | Role | Phone | + +------+ + | Earle Chacko MD | PCP | | + +------+ + Encounter Details +--------+ + + + + | Date | Type | Department | Care Team | Description | +--------+ + + + + | 07/21/ | Hospital | [facility] | Mohamud, | Diffuse large B-cell | | 2016 | Encounter | [facility] | Gerber Benson MD [address] | lymphoma of | | | | ON[facility]OGY CLINIC [address] [place] | intra-abdominal | | | | [address] [place] | [place] [address] | lymph nodes (HCC) | | | | [place] [address] | [phone] | (Primary Dx) | | | | [phone] | | | | | | | Olga Pepe, | | | | | | PharmD [address] | | | | | [address] [place], [place] | | | | | | [address] | | | | | | | [...] original. Clinical Oncology Pharmacy Services Progress Note [facility] Pt. Name/Age/: Gerber Galindo 66 y.o. 1950 CSN: [id number] Date of service: 07/21/2016 Provider: Olga Pepe PHARMD Identifying Statement: Gerber Galindo is a 66 y.o. male from [facility] [place] [address], The encounter diagnosis was Diffuse large B-cell [...] on Sunday07/25/16 to be assessed by Dr Mlalory. If deemed appropri ate, will start cycle [...] for comparison only - no result from [facility]. Vas Lower Extremity Venous Left 07/17/2016 External films for comparison only - no result from [facility]. Xr Chest 2 Vw 07/17/2016 External films for comparison only - no result from [facility]. Imaging Report - External Scan 07/21/2016 Ordered [...] | | | | | [place] | | | | | | [address] | | | | | | | | +--------+---------+ + + + documented as of this encounter Visit Diagnoses + + | Diagnosis | + + | 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
--- OUTSIDE RECORDS SUMMARY | ~2019-09-27 | XMS | Encounter Summary ---
Demographics + + + | Address | [address] | | | [place] [address] | + + + | Home Phone | | + + + | Preferred Language | Unknown | + + + | Marital Status | | + + + | Moravian Affiliation | 1013 | + + + | Race | Unknown | + + + | Ethnic Group | Unknown | + + + Author + + + | Author | [facility] | | | and [place] | + + + | Organization | [facility] | | | [...] [place] | | | | | [address] | | + + + + + Care Team Providers + +------+ + | Care Machine Packer Name | Role | Phone | + [...] large b-cell | Gerber Benson, | [address] | | | | | lymphoma, | MD [address] | [place], | | | | | intra-abdomi | [address] | [place] [address] | | | | | nal lymph | [place], | Phone: | | | | | nodes (HCC) | [place] [address] | [phone] | | | | | Procedures | Phone: | Fax: | | | | | [place] | [phone] | [phone] | | | | | RITUXIMAB | Fax: | | | | | | INJECTION, | [phone] | | | | | | 100 MG DE | | | | | | | MEPERIDINE | | | | | | | HYDROCHL | | | | | | | /100 MG DE | | | | | | | IV INFUSION, | | | | | | | HYDRATION, | | | | | | | 31-60 MIN | | | | | | | DE IV | | | | | | | INFUSION, | | | | | | | HYDRATION, | | | | | | | EA ADD HOUR | | | | | | | DE | | | | | | | ONDANSETRON | | | | | | | HCL | | | | | | | INJECTION, 1 | | | | | | | MG DE | | | | | | | DEXAMETHASON | | | | | | | E SODIUM | | | | | | | PHOS, 1 MG | | | | | | | DE | | | | | | | FOSAPREPITAN | | | | | | | T INJECTION, | | | | | | | 1 MG DE | | | | | | | PREDNISONE | | | | | | | IR OR DR | | | | | | | ORAL 1MG DE | | | | | | | | | | | | | | CYCLOPHOSPHA | | | | | | | MIDE 100 MG | | | | | | | INJ DE | | | | | | | DOXORUBICIN | | | | | | | HCL | | | | | | | INJECTION, | | | | | | | 10 MG DE | | | | | | | VINCRISTINE | | | | | | | SULFATE 1 MG | | | | | | | INJ DE | | | | | | | DIPHENHYDRAM | | | | | | | INE HCL | | | | | | | INJECTIO, 50 | | | | | | | MG DE | | | | | | | METHYLPREDNI | | | | | | | SOLONE | | | | | | | INJECTION, | | | | | | | 125 MG DE | | | | | | | DEXAMETHASON | | | | | | | E SODIUM | | | | | | | PHOS, 1 MG | | | | | | | DE | | | | | | | INJECTION, | | | | | | | PEGFILGRASTI | | | | | | | M 6MG DE | | | | | | | NORMAL | | | | | | | SALINE | | | | | | | SOLUTION | | | | | | | INFUS, 500 | | | | | | | ML DE | | | | | | | NORMAL | | | | | | | SALINE | | | | | | | SOLUTION | | | | | | | INFUS, 250 | | | | | | | ML DE | | | | | | | STERILE | | | | | | | WATER/SALINE | | | | | | | , 10 ML DE | | | | | | | CHEMOTHER, | | | | | | | IV PUSH,EA | | | | | | | ADD DRUG DE | | | | | | | CHEMOTHER, | | | | | | | IV INFUSION, | | | | | | | 1 HR DE | | | | | | | CHEMOTHER, | | | | | | | IV INFUSION, | | | | | | | EA HR DE | | | | | | | CHEMOTHER,NO | | | | | | | N-HORMONE | | | | | | | ANTI-NEOPL, | | | | | | | SUB-Q/IM DE | | | | | | | [...] + + + + | 04/23/ | [facility] | [facility] | Miguel Zuniag | 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 | | | | INFUSION [address] | [address] [place] | intra-abdominal | | | | [place], | [place], [place] [address] | lymph nodes (HCC) | | | | [place] [address] | [phone] | | | | | [phone] | | | +--------+ + + + [...] | | | | | [place], [place] | | | | | | [address] | | | | | | | [...] + | [facility] | [address] | [place] | [phone] | | [facility] | | [address] | | | - LABORATORY | | [...] 16 | 7 - 18 mg/dL | [facility] [...] mL/min/1.73m2 | [facility] | | | UKRAINIAN | RATE,ESTIMATED | | MEDICAL | | | | mL/min/1.41u2Cxct than | | CENTER - | | [...] | 9.2 | 8.3 - 10.5 | [facility] | | | | | mg/dL | [facility] | | | | | | MEDICAL | | | | | | CENTER - | | | | | | LABORATORY | | + + + + + + | Albumin | 3.7 | 3.2 - 5.0 g/dL | [facility] [...] [address] | [place] | [phone] | | [facility] | | [address] | | | - LABORATORY | | [...] [address] | [place] | [phone] | | [facility] | | [address] | | | - LABORATORY | | [...] 650 mg, Oral, ONCE, Sun | | 9:52 | | | | | 04/23/17 [...]
--- OUTSIDE RECORDS SUMMARY | ~2019-09-27 | XMS | Encounter Summary ---
Demographics + + + | Address | [address] | | | [place] [address] | + + + | Home Phone | | + + + | Preferred Language | Unknown | + + + | Marital Status | | + + + | Zoroastrian Affiliation | 1013 | + + + | Race | Unknown | + + + | Ethnic Group | Unknown | + + + Author + + + | Author | [facility] | | | and [place] | + + + | Organization | [facility] | | | [...] [place] | | | | | [address] | | + + + + + Care Team Providers + +------+ + | Care Manuscripts Curator Name | Role | Phone | + +------+ + | Kelsey Quintanilla MD | PCP | | + +------+ + Encounter Details +--------+ + + + + | Date | Type | Department | Care Team | Description | +--------+ + + + + | 04/18/ | Orders Only | [facility] | Provider, | | | 2019 | | SYSTEM GENERIC OP | MD [address] | | | | | CONVERSION [address] | [place]wendolyn [place]. | | | | | [address] [place], [place] | [place] [address] | | | | | [address] | | | | | | [phone] | | | +--------+ + + + [...] | | | | | [place], [place] | | | | | | [address] | | | | | | | | +--------+---------+ + + + documented as of this encounter Visit Diagnoses Not on filedocumented in this encounter"
--- OUTSIDE RECORDS SUMMARY | ~2019-09-27 | XMS | Encounter Summary ---
Demographics + + + | Address | [address] | | | [place] [address] | + + + | Home Phone [...] [place] | | | | | [address] | | + + + + + Care Team Providers + +------+ + | Care Assistant Womens Volleyball Coach Name | Role | Phone | + [...] | | ONCOLOGY CLINIC [address] | [facility] | | | | | [address] | [place] [address] | | | | | [place] [address] | [phone] | | | | | [phone] | | | +--------+ + + + [...] [place] | | | | | | [address] | | | | | | | [...]
--- OUTSIDE RECORDS SUMMARY | ~2019-09-27 | XMS | Encounter Summary ---
Demographics + + + | Address | [address] | | | [place] [address] | + + + | Home Phone [...] [place] | | | | | [address] | | + + + + + Care Team Providers + +------+ + | Care Middle School Librarian Name | Role | Phone | + [...] + + | 07/25/ | Hospital | [facility] | Mohamud, | Diffuse large B-cell | | 2016 | Encounter | MED CTR MEDICAL | Joaquim Benson MD [address] | lymphoma of | | | | ONCOLOGY CLINIC [address] | [address] [place] | intra-abdominal | | | | [address] [place] | [place] [address] | lymph nodes (HCC) | | | | [place] [address] | [phone] | | | | | [phone] | | | +--------+ + + + [...] nt from the original. Hematology/Oncology Progress Note [facility] Pt. Name/Age/: Joaquim Galindo 66 y.o. 1950 Med. Record Number: [id number] Date of admission: 07/25/2016 Identifying Statement: Joaquim Galindo is a 66 y.o. male from [address] [address] with Diffuse Large B-Cell Lymphoma. The patient [...] lower extremity. CT abdomen/Pelvis with contrast 2016 ([facility]). Ex tensive periaortic lymphadenopathy (1.8 cm and 2.1 cm respectively), extensive adenopathy ex tending out along the left common iliac artery and encasing the left external iliac artery ( 4.4 cm) with compromise of the left external iliac vein. 2. Open laparotomy with LEFT ileal retroperitoneal lymph node biopsy ([place], [facility]) June 242015. Specimen #[id number] ([facility]); Diffuse Large [...] benefits of sys awilda multiagent chemoimmunotherapy with [facility] for diffuse large B-Cell lymphoma, including the use of allopurinol to prevent tumor lysis syndrome, prophylactic use of ondansetron to p revent chemotherapy induced nausea and vomiting, use of lorazepam for rescue treatment of ch emotherapy induced nausea and vomiting, and the instruction to call the [facility] for any fever of 101 deg F or higher. He will receive Day #2 Neulasta at [facility] in [place], [place] Review of Systems: REVIEW OF SYSTEMS [...] Pharmacovigilance: Clinical Oncology Pharmacy Services Progress Note [facility] Pt. Name/Age/: Joaquim Galindo 66 y.o. 1950 CSN: [id number] Date of service: 07/21/2016 Provider: Olga Pepe, GEMINID Identifying Statement: Joaquim Galindo is a 66 y.o. male from [address] [address], The encounter diagnosis was Diffuse large B-cell [...] the patient was seen and exam inedChristian Gailndo is a 66 y.o. male here for [...] for comparison only - no result from [place]. Vas Lower Extremity Venous Left 07/17/2016 External films for comparison only - no result from [place] [facility]. Xr Chest 2 Vw 07/17/2016 External films for comparison only - no result from [place] [facility]. Imaging Report - External Scan 07/21/2016 Ordered [...] this chart may have been created with Krauttools recognition software. Occasi onal wrong-word or sound-alike [...] | | | | | [place], [place] | | | | | | [...] [place], | | | | | | [place] [address] | | | | + + + + + + + + | Specimen | + + | Blood specimen | | (specimen) | + + + + + + + | Performing | Address | City/State/Zipcode | Phone Number | | Organization | | | | + + + + + | [facility] | [address] | [place] [address] | [phone] | + + + + + CBC [...] [address] | [place] | [phone] | | [facility] | | [address] | | | - LABORATORY | | [...] mL/min/1.73m2 | [facility] | | | [facility]INICAN | RATE,ESTIMATED | | MEDICAL | | | | mL/min/1.66a2Bxct than | | CENTER - | | [...] + | [facility] | [address] | [place] | [phone] | | [facility] | | [address] | | | - LABORATORY | | [...] [address] | [place] | [phone] | | [facility] | | [address] | | | - LABORATORY | | [...] [address] | [place] | [phone] | | [facility] | | [address] | | | - LABORATORY | | [...] | | | | | [place] [address] | | | | + + + [...] [address] | [place] [address] | [phone] | + + + + + Hepatitis [...] | | | | | [place] [address] | | | | + + + [...] [address] | [place] [address] | [phone] | + + + + + Hepatitis [...] | | | | | [place] [address] | | | | + + + + + + + + | Specimen | + + | Blood specimen | | (specimen) | + + + + + + + | Performing | Address | City/State/Zipcode | Phone Number | | Organization | | | | + + + + + | [facility] | [address] | [place] [address] | [phone] | + + + + + documented in this encounter Visit Diagnoses + + | Diagnosis | + + | Diffuse large B-cell lymphoma of intra-abdominal lymph nodes (HCC) Other malignant | | lymphomas of intra-abdominal lymph nodes | + + documented in this encounter
--- OUTSIDE RECORDS SUMMARY | ~2019-09-27 | XMS | Encounter Summary ---
Demographics + + + | Address | [address] | | | [place] [address] | + + + | Home Phone [...] [place] | | | | | [address] | | + + + + + Care Team Providers + +------+ + | Care Nanosystems Engineer Name | Role | Phone | [...] + + | 09/26/ | Office | [facility] | Mohamud, | Lymphedema of left | | 2017 | Visit | MED CNT ONCOLOGY | Gerber Benson MD [address] | lower extremity | | | | THERAPY [address] | [address] [place] | (Primary Dx) | | | | [place], | [place] [address] | | | | | [place] [address] | [phone] | | | | | [phone] | | | | | | | [...] an appropriate compression garm ents for buttermaker management of edema. Goal 3 Status: Goal met Treatment Plan/Interventions 38197 - OT [id number] - Therapeutic [id number] - Therapeutic [id number] - Manu al Therapy Patient and/or family has indicated understanding of treatment needs and actively participa ian in the creation of this plan for care. Electronically signed by: Olivia Portillo OT, 09/26/2016 14:21 Patient Name: Gerber Galindo/: 1950/ Evelyn Vela OT - 09/26/2016 2:14 PM PSTFormatting of this note might be different from the [facility] OP [address] [place] [address] Occupational Therapy Discharge Note Date: 09/26/2016 Patient Information Patient Name: Gerber Galindo Date of : 1950 Age: 66 y.o. History Encounter Diagnoses Code Name Primary? I89.0 Lymphedema of left lower extremity Yes Date of Onset: 2016 Referring Provider: Gerber Mallory MD Rehab Precautions Office Visit from 08/24/2016 in [facility] TH[facility] OT OP Rehab Precautions Precautions None Rehab Learning Style Office Visit from 08/24/2016 in [facility] TH[facility] OT OP Learning Style Patient's [...] an appropriate compression garm ents for buttermaker management of edema. Goal 3 Status: Goal met Plan Date of Onset: 2016 Start of Care Date: 08/24/2016 Requested # of Visits: 8 visits 1x/week for 8 weeks Certification From: 08/24/2016 Certification To: 10/24/2016 Treatment Plan/Interventions 73700 - OT [id number] - Therapeutic [id number] - Therapeutic [id number] - Manu al Therapy Patient and/or family [...] concerns at this time. PLAN: Discharge to [facility]. Electronically signed by: Olivia Portillo OT, [...] [place] | | | | | | [address] | | | | | | | | +--------+---------+ + + + documented as of this encounter Visit Diagnoses + + | Diagnosis | + + | Lymphedema of left lower extremity - Primary | + + documented in this encounter
--- OUTSIDE RECORDS SUMMARY | ~2019-09-27 | XMS | Encounter Summary ---
Demographics + + + | Address | [address] | | | [place] [address] | + + + | Home Phone | | + + + | Preferred Language | Unknown | + + + | Marital Status | | + + + | Anabaptism Affiliation | 1013 | + + + | Race | Unknown | + + + | Ethnic Group | Unknown | + + + Author + + + | Author | [facility] | | | and [place] | + + + | Organization | [facility] | | | [...] [place] | | | | | [address] | | + + + + + Care Team Providers + +------+ + | Care Education Diagnostician Name | Role | Phone | + [...] + + | 03/25/ | Hospital | [facility] | Mohamud, | Diffuse large B-cell | | 2018 | Encounter | MED CTR MEDICAL | Joaquim Benson MD [address] | lymphoma of | | | | ONCOLOGY CLINIC [address] | [address] [place] | intra-abdominal | | | | [address] [place] | [place] [address] | lymph nodes (HCC) | | | | [place] [address] | [phone] | | | | | [phone] | | | +--------+ + + + [...] nt from the original. Hematology/Oncology Progress Note [place], [place] Pt. Name/Age/: Joaquim Sanchez Jr. 67 y.o. 1950 Med. Record Number: [id number] Date of admission: 03/25/2018 The patient's primary care provider is Kelsey Quintanilla MD. Identifying Statement: Joaquim Sanchez Jr. is a 67 y.o. male from [address] [address] with Mixed Diffuse Large B-Cell/Follicular Lymphoma in [...] lower extremity. CT abdomen/Pelvis with contrast 2016 ([facility]). Ex tensive periaortic lymphadenopathy (1.8 cm and 2.1 cm respectively), extensive adenopathy ex tending out along the left common iliac artery and encasing the left external iliac artery ( 4.4 cm) with compromise of the left external iliac vein. 2. Open laparotomy with LEFT ileal retroperitoneal lymph node biopsy ([place], [facility]) June 242015. Specimen #[id number] ([facility]); Diffuse Large B-Cell lymph raciel, germinal center [...] September 04, 2016. 10. CT Abdomen/Pelvis at [facility] on September 12, 2016; Positive Response [...] (PRIMA protocol). 14. Repeat CT scan at [facility], [place], [place] on December 01, [address] [...] [address] scan at [facility] on April 18, 2017 demonstrated decreased left [...] [address] scan at [facility] on November 21, 2017 demonstrated [...] 12 cycles of maintenance rituximab, 375 mg/m dread warner two months. Return on May 20, 2018 [...] Am. J. Clin. Oncol.: Davida Ma., Rebel, Brittney., Andie Menezes., Donal Trejo, Vy Rodriguez., Armando [...] JOAQUIM Carolyn BOX ( ) as of 03/25/2018 13:27 Ref. [...] 2006 , Vol. 47, No. 6, pp 3953-7946. In the first article, an observational study [...] observational study, by Marques et al from [facility] th at reports neutropenia developed in [...] this chart may have been created with Skadoosh voice recognition software. Occasi onal wrong-word or [...] | | | | | [place], [place] | | | | | | [address] | | | | | | | | +--------+---------+ + + + documented as of this encounter Visit Diagnoses + + | Diagnosis | + + | Diffuse large B-cell lymphoma of intra-abdominal lymph nodes (HCC) Other malignant | | lymphomas of intra-abdominal lymph nodes | + + documented in this encounter
--- OUTSIDE RECORDS SUMMARY | ~2019-09-27 | XMS | Clinical Summary ---
Demographics + + + | Address | [address] | | | [place] [address] | + + + | Home Phone | | + + + | Preferred Language | Unknown | + + + | Marital Status | | + + + | Quaker Affiliation | 1013 | + + + | Race | Unknown | + + + | Ethnic Group | Unknown | + + + Author + + + | Author | [facility] (Historical as of | | | 05-10-19) | + + + | Organization | [facility] (Historical as of | | | 05-10-19) | + + + | Address | Unknown | + + + | Phone | Unavailable | + + + Support + + + + + | Name | Relationship | Address | Phone | + + + + + | Mara Sanchez | ECON | [address] | | | | | [place] | | | | | [address] | | + + + + + Care Team Providers + +------+ + | Care Industry Consultant Name | Role | Phone | + +------+ + | Kelsey Quintanilla MD | PP | | + +------+ + Allergies + + + + + + | Active Allergy | Reactions | Severity | Noted | Comments | | | | | Date | | + + + + + + | Codeine | Other (See Comments) | Medium | 02/21/20 | "doesn't do well | | | | | 18 | with it" | + + + + + + Current Medications + + +--------+---------+------+------+-------+ | Prescription | Sig. | Disp. | Refills | Star | End | Statu | | | | | | t | Date | s | | | | | | Date | | | + + +--------+---------+------+------+-------+ | omeprazole | Take 20 mg by mouth | | | | | Activ | | (PRILOSEC OTC) 20 MG | every morning before | | | | | e | | tablet | breakfast. | | | | | | + + +--------+---------+------+------+-------+ | cetirizine | Take 10 mg by mouth | | | | | Activ | | (ZYRTEC) 10 MG | daily. | | | | | e | | tablet | | | | | | | + + +--------+---------+------+------+-------+ | ascorbic acid | Take 1,000 mg by | | | | | Activ | | (VITAMIN C) 1000 MG | mouth daily. | | | | | e | | tablet | | | | | | | + + +--------+---------+------+------+-------+ | magnesium | Take 500 mg by mouth | | | | | Activ | | gluconate (MAGONATE) | 2 (two) times | | | | | e | | 500 MG tablet | daily. | | | | | | + + +--------+---------+------+------+-------+ | Cholecalciferol | Take 10,000 Units by | | | | | Activ | | (D-3-5) 5000 UNITS | mouth daily. | | | | | e | | capsule | | | | | | | + + +--------+---------+------+------+-------+ | aspirin 81 MG | Take 1 tablet by | 30 | 11 | 06/0 | | Activ | | chewable tablet | mouth daily with | tablet | | 6/20 | | e | | | breakfast. | | | 14 | | | + + +--------+---------+------+------+-------+ | carvedilol (COREG) | Take 37.5 mg by | | | | | Activ | | 25 MG tablet | mouth 2 (two) times | | | | | e | | | daily with meals. | | | | | | + + +--------+---------+------+------+-------+ | levothyroxine | Take 50 mcg by mouth | | | | | Activ | | (SYNTHROID) 50 MCG | every morning | | | | | e | | tablet | before breakfast. | | | | | | + + +--------+---------+------+------+-------+ | gabapentin | Take 100 mg by mouth | | | | | Activ | | (NEURONTIN) 100 MG | 2 (two) times | | | | | e | | capsule | daily. | | | | | | + + +--------+---------+------+------+-------+ | metFORMIN | Take 500 mg by mouth | | | | | Activ | | (GLUMETZA) 500 MG | daily with | | | | | e | | (MOD) 24 hr tablet | breakfast. | | | | | | + + +--------+---------+------+------+-------+ | LORazepam (ATIVAN) | Take 0.5 mg by mouth | | | | | Activ | | 1 MG tablet | nightly. | | | | | e | + + +--------+---------+------+------+-------+ | atorvastatin | Take 1 tablet by | | | 05/3 | | Activ | | (LIPITOR) 10 MG | mouth once for 1 | | | 0/20 | | e | | tablet | dose. | | | 18 | | | + + +--------+---------+------+------+-------+ | lisinopril | Take 1 tablet by | 180 | 3 | 05/ | | Activ | | (ZESTRIL) 10 MG | mouth daily. | tablet | | 0/20 | | e | | tablet | | | | 18 | | | + + +--------+---------+------+------+-------+ | nitroGLYCERIN | Place 1 tablet under | 30 | 2 | 06/ | 06 | Activ | | (NITROSTAT) 0.4 MG | the tongue every 5 | tablet | | 6/20 | 5/20 | e | | SL tablet | (five) minutes as | | | 19 | 20 | | | | needed for Chest | | | | | | | | pain. 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 Presentation | | with a three month history of progressive Left lower extremity | | edema, urinary frequency and bowel irregularity. Left lower | | extremity venous doppler 2016 ([facility]) No DVT left lower | | extremity. CT abdomen/Pelvis with contrast 2016 | | ([facility]). Extensive periaortic lymphadenopathy (1.8 cm and 2.1 cm | | respectively), extensive adenopathy extending out along the left | | common iliac artery and encasing the left external iliac artery | | (4.4 cm) with compromise of the left external iliac vein.2. Open | | laparotomy with LEFT ileal retroperitoneal lymph node biopsy | | ([facility]) July 05, 2016. Specimen #[id number] ([facility], | | [facility]); Diffuse Large B-Cell lymphoma, germinal | [...] 04, 2016.10. CT Abdomen/Pelvis | | at [facility] on September 12, 2016; | | [...] protocol).14. Repeat CT scan at | | [facility], [place], [place] on December 01, 2016 | | [...] [address] scan at [facility] on April 18, | | 2016 demonstrated decreased left iliac [...] | mm 16. Repeat CT scan at [facility] on November 21, | | 2017 demonstrated decreased left iliac lymph node chain | | adenopathy.Region 2015Sep 12, 2016 Dec 01, 2016 Apr 18, | | 2016Nov 21, 2017 RIGHT Retroperitoneal 18 mm 6 [...] 19 mm 18 x 15 mm Last Assessment & | | Plan: Joaquim Sanchez Jr. 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 Presentation | | with a three month history of progressive Left lower extremity | | edema, urinary frequency and bowel irregularity. Left lower | | extremity venous doppler 2016 ([facility]) No DVT left lower | | extremity. CT abdomen/Pelvis with contrast 2016 | | ([facility]). Extensive periaortic lymphadenopathy (1.8 cm and 2.1 cm | | respectively), extensive adenopathy extending out along the left | | common iliac artery and encasing the left external iliac artery | | (4.4 cm) with compromise of the left external iliac vein.2. Open | | laparotomy with LEFT ileal retroperitoneal lymph node biopsy | | ([facility], [facility]) July 05, 2016. Specimen #[id number] (Marcial, | | [facility]); Diffuse Large B-Cell lymphoma, germinal | [...] Abdomen/Pelvis | | at [facility] [place] on September 12, 2016; | | Positive [...] protocol).14. Repeat CT scan at | | [facility], [place], [place] on December 01, 2016 | | [...] [address] scan at [facility] on April 18 | | 2016 [...] | mm 16. Repeat CT scan at [facility] on November 21 | | 2017 demonstrated decreased left iliac lymph node chain | | adenopathy.Region 06/20162018 RIGHT | | Retroperitoneal 18 mm 6 [...] [address] scan at [facility] on | | September 09, [...] Last Assessment & Plan: Joaquim Leon Josie ChristiansonChristian returned | | to clinic on 05/20/2018 with his , Mara, for follow-up | | and ongoing maintenance of remission therapy with rituximab for | | symptomatic, mixed diffuse large B-cell/follicular B-cell | | lymphoma.Interval history is notable for the fact that Rios has | | been through two courses of antibiotics to recover from an upper | | respiratory tract infection.Review of systems is notable for the | | fact that dyspnea and cough have improved.Clinical exam is | | notable for clear lung moore bilaterally.Laboratory exam is | | negative for any signs of vzthonc-faexc-ylwzkinknzl.Assessment; | | composite mixed diffuse large B-cell/follicular B-cell | | lymphoma.Recurrent upper respiratory tract infection.Plan;Proceed | | with Cycle #11 of maintenance rituximab today.Return on June | | 2017 for his last dose of maintenance rituximab, to be | | followed by repeat CT of abdomen/pelvis to monitor ongoing | | disease status. 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 We agreed to add quantitative IGG, IGA, IGM to his | | follow up labs in June and re-engage in the discussion | | regarding IVIG treatment afterwards. | + + + + + | GERD (gastroesophageal reflux disease) | 02/26/2014 | + + + | CPAP (continuous positive airway pressure) dependence | 02/26/2014 | + + + Resolved Problems + + + + | Problem | Noted | Resolved | | | Date | Date | + + + + | NSTEMI (non-ST elevated myocardial infarction) | 02/27/20 | | | | 14 | 8 | + + + + | Chest pain, unspecified | 02/27/20 | | | | 14 | 9 | + + + + Family History + + +------+ + | Medical History | Relation | Name | Comments | + + +------+ + | Heart disease | Cousin | | | + + +------+ + | Cancer | Father | | | + + +------+ + | Cancer | Mother | | | + + +------+ + + +------+--------+ + | Relation | Name | Status | Comments | + +------+--------+ + | Cousin | | | | + +------+--------+ + | Father | | | | + +------+--------+ + | Mother | | | | + +------+--------+ + Social History + +-------+ +--------+------+ | Tobacco Use | Types | Packs/Day | Years | Date | | | | | Used | | + +-------+ +--------+------+ | Former Smoker | | | | | + +-------+ +--------+------+ + +---+---+---+ | Smokeless Tobacco: | | | | | Never Used | | | | + +---+---+---+ + + +---------+ + | Alcohol Use | Drinks/We | oz/Week | Comments | | | ek | | | + + +---------+ + | No | | | | + + +---------+ + + + + | Sex Assigned at | Date Recorded | | | | + + + | Not on file | | + + + Last Filed Vital Signs + + + + | Vital Sign | Reading | Time Taken | + + + + | Blood Pressure | 116/68 | 03/19/2019 11:27 AM PDT | + + + + | Pulse | 64 | 03/19/2019 11:27 AM PDT | + + + + | Temperature | 36.5 C (97.7 F) | 02/27/2014 11:55 AM PDT | + + + + | Respiratory Rate | 18 | 02/27/2014 11:55 AM PDT | + + + + | Oxygen Saturation | 95% | 03/19/2019 11:27 AM PDT | + + + + | Inhaled Oxygen | - | - | | Concentration | | | + + + + | Weight | 146.6 kg (323 lb 3.2 | 03/19/2019 11:27 AM PDT | | | oz) | | + + + + | Height | 190.5 cm (6' 3") | 03/19/2019 11:27 AM PDT | + + + + | Body Mass Index | 40.4 | 03/19/2019 11:27 AM PDT | + + + + Plan of Treatment +--------+---------+ + + + | Date | Type | Specialty | Care Team | Description | +--------+---------+ + + + | 10/01/ | Office | | Karen Bansal, | | | 2019 | Visit | | MD Patricia Polk | | | | | | Dr [address], | | | | | | [place] [address] | | | | | | [phone] | | | | | | | | +--------+---------+ + + + + + + + + | Health Maintenance | Due Date | Last Done | Comments | + + + + + | Vaccine: | | | | | Dtap/Tdap/Td (1 - | 0 | | | | Tdap) | | | | + + + + + | Colon Cancer | | | | | Screening | 1 | | | | (Colonoscopy) | | | | + + + + + | Vaccine: Zoster (1 | | | | | of 2) | 1 | | | + + + + + | Vaccine: | | | | | Pneumococcal 65+ | 6 | | | | High/Highest Risk (1 | | | | | of 2 - PCV13) | | | | + + + + + | Vaccine: Influenza | | | | | (#1) | 9 | | | + + + + + Results Not on filefrom Last 3 Months Insurance + +--------+ +------+-------+ + | Payer | Benefi | Subscriber | Type | Phone | Address | | | t Plan | ID | | | | | | / | | | | | | | Group | | | | | + +--------+ +------+-------+ + | MEDICARE | MEDICA | [id number] | | | [address] | | | RE | | | | [place] [address] | | | IP-OP | | | | | + +--------+ +------+-------+ + | PREMERA | PREMER | [id number] | | | [address] [address] | | | A BLUE | | | | [place], [place] | | | [place] | | | | [address] | | | FED | | | | | | | PPO | | | | | + +--------+ +------+-------+ + + +--------+ +--------+ + + | Guarantor Name | Accoun | Relation to | Date | Phone | Billing Address | | | t Type | Patient | of | | | | | | | | | | + +--------+ +--------+ + + | JOAQUIM SANCHEZ | Person | Self | [birth year] | Home: | [address] | | | al/Fam | | 1949 | [phone] [place] | | | [place] | | | [phone] | [address] | + +--------+ +--------+ + +
--- OUTSIDE RECORDS SUMMARY | ~2019-09-27 | XMS | Encounter Summary ---
Demographics + + + | Address | [address] | | | [place] [address] | + + + | Home Phone [...] + + | Author | [facility] | | | and [place] | + + + | Organization | [facility] | | | and [...] [place] | | | | | [address] | | + + + + + Care Team Providers + +------+ + | Care Information Systems Planner Name | Role | Phone | + [...] large b-cell | Gerber Benson, | [address] [place] | | | | | lymphoma, | MD [address] | [place], | | | | | intra-abdomi | [address] | [place] [address] | | | | | nal lymph | [place], | Phone: | | | | | nodes (HCC) | [place] [address] | [phone] | | | | | Procedures | Phone: | Fax: | | | | | [place] | [phone] | [phone] | | | | | RITUXIMAB | Fax: | | | | | | INJECTION, | [phone] | | | | | | 100 [...] + + + + | 07/25/ | [facility] | [facility] | Mohamud, | Diffuse large B-cell | | 2016 | Encounter | MED CTR CHEMO | Gerber Benson MD [address] | lymphoma of | | | | INFUSION [address] | [address] [place] | intra-abdominal | | | | [place], | [place] [address] | lymph nodes (HCC) | | | | [place] [address] | [phone] | | | | | [phone] | | | +--------+ + + + [...] | | | | | [place] | | | | | | [address] | | | | | | | [...]
--- OUTSIDE RECORDS SUMMARY | ~2019-09-27 | XMS | Encounter Summary ---
Demographics + + + | Address | [address] | | | [place] [address] | + + + | Home Phone | | + + + | Preferred Language | Unknown | + + + | Marital Status | | + + + | Yarsani Affiliation | 1013 | + + + | Race | Unknown | + + + | Ethnic Group | Unknown | + + + Author + + + | Author | [facility] | | | and [place] | + + + | Organization | [facility] | | | [...] [place] | | | | | [address] | | + + + + + Care Team Providers + +------+ + | Care Pulp Mill Supervisor Name | Role | Phone | [...] | | | large b-cell | Gerber Besnon, | [address] [place] | | | | | lymphoma, | MD [address] | [place], | | | | | intra-abdomi | [address] | [place] [address] | | | | | nal lymph | [place], | Phone: | | | | | nodes (HCC) | [place] [address] | [phone] | | | | | Procedures | Phone: | Fax: | | | | | [place] | [phone] | [phone] | | | | | RITUXIMAB | Fax: | | | | | | INJECTION, | [phone] | | | | | | 100 MG [place] | | | | | | | MEPERIDINE | | | | | | | HYDROCHL | | | | | | | /100 MG [place] | | | | | | | IV INFUSION, | | | | | | | HYDRATION, | | | | | | | 31-60 MIN | | | | | | | CA IV | | | | | | | INFUSION, | | | | | | | HYDRATION, | | | | | | | EA ADD HOUR | | | | | | | CA | | | | | | | ONDANSETRON | | | | | | | HCL | | | | | | | INJECTION, 1 | | | | | | | MG CA | | | | | | | DEXAMETHASON | | | | | | | E SODIUM | | | | | | | PHOS, 1 MG | | | | | | | CA | | | | | | | FOSAPREPITAN | | | | | | | T INJECTION, | | | | | | | 1 MG CA | | | | | | | PREDNISONE | | | | | | | IR OR DR | | | | | | | ORAL 1MG CA | | | | | | | | | | | | | | CYCLOPHOSPHA | | | | | | | MIDE 100 MG | | | | | | | INJ CA | | | | | | | DOXORUBICIN | | | | | | | HCL | | | | | | | INJECTION, | | | | | | | 10 MG CA | | | | | | | VINCRISTINE | | | | | | | SULFATE 1 MG | | | | | | | INJ CA | | | | | | | DIPHENHYDRAM | | | | | | | INE HCL | | | | | | | INJECTIO, 50 | | | | | | | MG [place] | | | | | | | METHYLPREDNI | | | | | | | SOLONE | | | | | | | INJECTION, | | | | | | | 125 MG [place] | | | | | | | DEXAMETHASON | | | | | | | E SODIUM | | | | | | | PHOS, 1 MG | | | | | | | CA | | | | | | | INJECTION, | | | | | | | PEGFILGRASTI | | | | | | | M 6MG CA | | | | | | | NORMAL | | | | | | | SALINE | | | | | | | SOLUTION | | | | | | | INFUS, 500 | | | | | | | ML [place] | | | | | | | NORMAL | | | | | | | SALINE | | | | | | | SOLUTION | | | | | | | INFUS, 250 | | | | | | | ML [place] | | | | | | | STERILE | | | | | | | WATER/SALINE | | | | | | | , 10 ML [place] | | | | | | | CHEMOTHER, | | | | | | | IV PUSH,EA | | | | | | | ADD DRUG [place] | | | | | | | CHEMOTHER, | | | | | | | IV INFUSION, | | | | | | | 1 HR [place] | | | | | | | CHEMOTHER, | | | | | | | IV INFUSION, | | | | | | | EA HR CA | | | | | | | CHEMOTHER,NO | | | | | | | N-HORMONE | | | | | | | ANTI-NEOPL, | | | | | | | SUB-Q/IM [place] | | | | | | | [...] + + + + | 02/26/ | [facility] | [facility] | Mohamud, | Diffuse large B-cell | | 2017 | Encounter | MED CTR CHEMO | Gerber Benson MD [address] | lymphoma of | | | | INFUSION [address] | [address] [place] | intra-abdominal | | | | [place], | [place] [address] | lymph nodes (HCC); | | | | [place] [address] | [phone] | Lymphedema of left | | | | [phone] | | lower extremity | +--------+ + [...] [place] | | | | | | [address] | | | | | | | [...] + | [facility] | [address] | [place] | [phone] | | [facility] | | [address] | | | - LABORATORY | | [...] | | | FILTRATION | mL/min/1.73m2 | [facility] | | | [place] | RATE,ESTIMATED | | MEDICAL | | | | mL/min/1.58y0Wnrb than | | CENTER - | | [...] | 9.5 | 8.3 - 10.5 | [facility] | | | | | mg/dL | [facility] | | | | | | MEDICAL | | | | | | CENTER - | | | | | | LABORATORY | | + + + + + + | Albumin | 3.9 | 3.2 - 5.0 g/dL | [facility] [...] + | [facility] | [address] | [place] | [phone] | | [facility] | | [address] | | | - LABORATORY | | [...] ST. | [address] | [place], [place] | [phone] | | [facility] | | [address] | | | - LABORATORY | | [...] Units 500 Units (5 | | 17 4:18 | Units | [...]
--- OUTSIDE RECORDS SUMMARY | ~2019-09-27 | XMS | Encounter Summary ---
Demographics + + + | Address | [address] | | | [place] [address] | + + + | Home Phone | | + + + | Preferred Language | Unknown | + + + | Marital Status | | + + + | Yarsanism Affiliation | 1013 | + + + [...] [place] | | | | | [address] | | + + + + + Care Team Providers + +------+ + | Care Procurement Engineer Name | Role | Phone | [...] large b-cell | Gerber Benson, | [address] [place] | | | | | lymphoma, | MD [address] | [place], | | | | | intra-abdomi | [address] | [place] [address] | | | | | nal lymph | [place], | Phone: | | | | | nodes (HCC) | [place] [address] | [phone] | | | | | Procedures | Phone: | Fax: | | | | | [place] | [phone] | [phone] | | | | | INJECTION, | Fax: | | | | | | FAMOTIDINE, | [phone] | | | | | | 20 MG [place] | | | | | | | RITUXIMAB | | | | | | | INJECTION, | | | | | | | 100 MG [place] | | | | | | | LORAZEPAM | | | | | | | INJECTION, 2 | | | | | | | MG [place] | | | | | | | MEPERIDINE | | | | | | | HYDROCHL | | | | | | | /100 MG [place] | | | | | | | DIPHENHYDRAM | | | | | | | INE HCL | | | | | | | INJECTIO, 50 | | | | | | | MG [place] | | | | | | | METHYLPREDNI | | | | | | | SOLONE | | | | | | | INJECTION, | | | | | | | 125 MG [place] | | | | | | | DEXAMETHASON | | | | | | | E SODIUM | | | | | | | PHOS, 1 MG | | | | | | | [place] NORMAL | | | | | | | SALINE | | | | | | | SOLUTION | | | | | | | INFUS, 500 | | | | | | | ML [place] | | | | | | | NORMAL | | | | | | | SALINE | | | | | | | SOLUTION | | | | | | | INFUS, 250 | | | | | | | ML [place] | | | | | | | STERILE | | | | | | | WATER/SALINE | | | | | | | , 10 ML [place] | | | | | | | CHEMOTHER, | | | | | | | IV PUSH,EA | | | | | | | ADD DRUG [place] | | | | | | | CHEMOTHER, | | | | | | | IV INFUSION, | | | | | | | 1 HR [place] | | | | | | | CHEMOTHER, | | | | | | | IV INFUSION, | | | | | | | EA HR [place] | | | | | | | CHEMOTHER,NO | | | | | | | N-HORMONE | | | | | | | ANTI-NEOPL, | | | | | | | SUB-Q/IM [place] | | | | | | | [...] [place] | intra-abdominal | | | | [place], | [place] [address] | lymph nodes (HCC) | | | | [place] [address] | [phone] | | | | | [phone] | | | +--------+ + + + [...] [place] | | | | | | [address] | | | | | | | [...] + | [facility] | [address] | [place] | [phone] | | [facility] | | [address] | | | - LABORATORY | | [...] mL/min/1.73m2 | [facility] | | | [place] | RATE,ESTIMATED | | MEDICAL | | | | mL/min/1.56r0Knsi than | | CENTER - | | [...] | 9.8 | 8.3 - 10.5 | [facility] | | | | | mg/dL | [facility] | | | | | | MEDICAL | | | | | | CENTER - | | | | | | LABORATORY | | + + + + + + | Albumin | 3.7 | 3.2 - 5.0 g/dL | [facility] | | | | | | [facility] [...] [address] | [place] | [phone] | | [facility] | | [address] | | | - LABORATORY | | [...] [address] | [place] | [phone] | | [facility] | | [address] | | | - LABORATORY | | [...]
--- OUTSIDE RECORDS SUMMARY | ~2019-09-27 | XMS | Encounter Summary ---
Demographics + + + | Address | [address] | | | [place] [address] | + + + | Home Phone | | + + + | Preferred Language | Unknown | + + + | Marital Status | | + + + | Alevism Affiliation | [id number] | + + + | Race | Unknown | + + + | Ethnic Group | Unknown | + + + Author + + + | Author | [facility] | | | and [place] | + + + | Organization | [facility] | | | [...] [place] | | | | | [address] | | + + + + + Care Team Providers + +------+ + | Care Aircraft Structural Repair Mechanic Name | Role | Phone | [...] | Diffuse | Nikhil, | [address] | | | | | large B-cell | Joaquim Benson, | [place], | | | | | lymphoma of | MD [address] | [place] | | | | | | [address] | [address] | | | | | intra-abdomi | [place], | Phone: | | | | | nal lymph | [place] [address] | [phone] | | | | | nodes (HCC) | Phone: | Fax: | | | | | Procedures | [phone] | [phone] | | | | | ECHO | Fax: | | | | | | Complete | [phone] | | +--------+--------+ + + + + Reason for Visit + + + | Reason | Comments | + + + | Follow-up | | + + + Encounter Details +--------+ + + + + | Date | Type | Department | Care Team | Description | +--------+ + + + + | 10/17/ | Hospital | [facility] | Nikhil, | Diffuse large B-cell | | 2017 | Encounter | [facility] | Joaquim Benson MD [address] | lymphoma of | | | | [facility] [address] [place] | intra-abdominal | | | | [address] [place] | [place] [address] | lymph nodes (HCC) | | | | [place] [address] | [phone] | (Primary Dx) | | | | [phone] | | | +--------+ + + + [...] + + + | Blood Pressure | 128/72 | 10/17/2016 8:46 AM | | | | | PST | | + + + + + | Pulse | 61 | 10/17/2016 8:46 AM | | | | | PST | | + + + + + | Temperature | 36.8 C (98.3 F) | 10/17/2016 8:46 AM | | | | | PST | | + + + + + | Respiratory Rate | 18 | 10/17/2016 8:46 AM | | | | | PST | | + + + + + | Oxygen Saturation | 95% | 10/17/2016 8:46 AM | | | | | PST | | + + + + + | Inhaled Oxygen | - | - | | | Concentration | | | | + + + + + | Weight | 140.5 kg (309 lb | 10/17/2016 8:46 AM | | | | 11.2 oz) | PST | | + + + + + | Height | - | - | | + + + + + | Body Mass Index | 39.76 | 07/18/2016 4:16 PM | | | [...] encounter Progress Notes Joaquim Tejeda MD - 10/17/2016 8:30 AM PSTFormatting of this note might be differe nt from the original. Hematology/Oncology Progress Note [facility] [place] Pt. Name/Age/: Joaquim Sanchez 66 [address] 1950 [facility]. Record Number: [id number] Date of admission: 10/17/2016 Identifying Statement: Joaquim Sanchez is a 66 y.o. male from [address] [address] with Diffuse Large B-Cell Lymphoma. The patient [...] node biopsy ([facility]) June 242015. [facility][id number] [facility] Diffuse Large B-Cell lymph raciel, germinal [...] September 04, 2016. 10. CT Abdomen/Pelvis at [facility], [place] on September 12, 2016; Positive Response when [...] Plan Joaquim Atkinson" returned to clinic on 10/17/2016 with his , Mara, on 10/17 for follow-up and Cycle #5 of RCHP for his B-cell lymphoma; 75% diffuse large cell and 25% follicular. Review of systems is notable for persistent left lower extremity lymphedema. Rios is weari ng a thigh-high compression garment which has trapped lymphedema in the left groin, which walden s Rios concerned of a mass there. He was reassured that there was no clinical evidence of r ecurrence. Rios complains of worsening of his chronic GERD while on chemotherapy in spite of maximum PPI dose-I recommended that he add Mylanta to his antireflux regimen. Rios complains of persistent peripheral neuropathy and therefore vincristine will be held again from his regimen. Laboratory exam is notable for grade 1 leukopenia without neutropenia. Assessment; Stage III or higher, B-cell lymphoma; 75% diffuse large B-Cell lymphoma, 25% fo llicular grade 3. Plan; extended 25 minute office encounter with Rios and his , Mara, regarding the nature and extent of his disease and ways to mitigate adverse effects of treatment. We also introduced the topic of maintenance rituximab following the completion of six cycles of cristy atment which would be appropriate since the lymphoma is in part follicular. Repeat safety evaluation with cardiac echocardiogram. Review of Systems: Constitutional: Reports energy level is good. States that the nausea is constant- "I graze because of this and I think that this is why I am gaining weight". Reports that his face flu shes occasionally. States he is only eating because he needs to, nothing really sounds good. Denies high fevers, shaking chills, anorexia, vomiting, weight loss, or night sweats. Ear, Nose, Mouth, Throat: Reports that there is a lump mid chest and this is what causes th e nausea. Denies odynophagia or tinnitus. Cardiovascular: Denies shortness of breath, dyspnea on exertion, chest pain, palpitations o r orthopnea. Respiratory: Reports rare cough with phlegm and it gets less and less days from chemo. Mundo es hemoptysis or sputum production. Gastrointestinal: Reports constipation right after treatment and then loosens up into diarr hea. Denies abdominal pain, melena, or bright red blood per rectum. Genitourinary: Denies hematuria or dysuria. Musculoskeletal: Reports bilateral feet and toe joints are very stiff. States that he has t o keep his toes moving most of the time. Neurologic: Reports numbness/tingling in fingers and toes- states it has been constant sinc e last time. Denies headache or visual changes. Endocrine: Reports swelling in left leg is better in mornings, but then swells pretty badly at night. He states that if he was not wearing sock then it was swollen. Denies heat/cold i ntolerance. Hematologic: Denies spontaneous bruising or bleeding. Integumentary: [...] PRN Joaquim robles MD 500 Units at 10/17/16 2448 Allergies: Allergy: Allergies Allergen Reactions Codeine "wires [...] Lymphedema of left lower extremity Objectives: Temp: 36.8 C (98.3 F) BP: 128/72 mmHg Pulse: 61 Resp: 18 SpO2: 95 % on Min/Max Temp past 24 hours:Temp Av.8 C (98.3 F) Min: 36.8 C (98.3 F) Max: 3 6.8 C (98.3 F) No intake or output data in the 24 hours ending 10/17/16 1836 Wt. Admission: Weight: (!) 140.479 kg (309 lb 11.2 oz) Wt. Current: Weight: (!) 140.479 kg (309 lb 11.2 oz) Wt Readings from Last 3 Encounters: 10/17/16 140.479 kg (309 lb 11.2 oz) 10/05/16 137.984 kg (304 lb 3.2 oz) 09/26/16 138.3 kg (304 lb 14.3 oz) Physical Exam: General: The patient is [...] As published in Am. J. Clin. Oncol.: Giovanni Ma, Brittney Luque., Andie Meenzes., Michael Trejo., Michael TDusty., Taty DiamondT., Fatoumata, [...] for JOAQUIM SANCHEZ ( ) as of 10/17/2016 18:30 Ref. Range 10/17/2016 08:14 WBC Latest Ref Range: 4.0-11.0 K/uL 3.3 (L) RBC: Latest Ref Range: 4.30-5.70 M/uL 3.57 (L) Hgb Latest Ref Range: 13.5-18.0 g/dL 10.9 (L) Hct, Final Latest Ref Range: 40.0-51.0 % 31.6 (L) MCV Latest Ref Range: 83.0-101.0 fL 88.5 MCH Latest Ref Range: 28.0-35.0 pg 30.5 MCHC Latest Ref Range: 32.0-36.0 g/dL 34.4 RDW-CV Latest Ref Range: <15.0 % 20.0 (H) Platelet Count Latest Ref Range: 140-440 K/uL 120 (L) MPV Latest Units: fL 8.3 Absolute Neutrophils Latest Ref Range: 1.80-8.50 K/uL 2.30 Absolute Lymphocytes Latest Ref Range: 0.60-3.20 K/uL 0.60 Absolute Monocytes Latest Ref Range: 0.00-1.00 K/uL 0.30 Absolute Eosinophils Latest Ref Range: 0.00-0.40 K/uL 0.00 Absolute Basophils Latest Ref Range: 0.00-0.10 K/uL 0.00 % Neutrophils Latest Ref Range: 45.0-82.0 % 71.4 % Lymphocytes Latest Ref Range: 20.0-45.0 % 18.4 (L) % Monocytes Latest Ref Range: 4.0-12.0 % 7.9 % Eosinophils Latest Ref Range: 0.0-5.0 % 1.2 % Basophils Latest Ref Range: 0.0-1.0 % 1.1 (H) NA Latest Ref Range: 136-149 mmol/L 141 K Latest Ref Range: 3.5-5.1 mmol/L 3.8 Chloride Latest Ref Range: 98-109 mmol/L 107 Carbon dioxide Latest Ref Range: 24-31 mmol/L 27 ANION GAP Latest Ref Range: 3-16 mmol/L 7 GLUCOSE Latest Ref Range: 70-109 mg/dL 129 (H) BUN Latest Ref Range: 7-18 mg/dL 16 BUN/CREA Unknown 16.8 Creatinine Latest Ref Range: 0.60-1.30 mg/dL 0.95 ALBUMIN Latest Ref Range: 3.2-5.0 g/dL 3.6 Albumin/Globulin ratio Latest Ref Range: 0.8-2.0 1.7 Total protein Latest Ref Range: 6.0-7.8 g/dL 5.7 (L) EGFR IF NOT Latest Ref Range: >=60 mL/min/1.73m2 >60 Calcium Latest Ref Range: 8.3-10.5 mg/dL 9.5 ALK PHOS Latest Ref Range: 40-110 U/L 44 ALT (SGPT) (REF) Latest Ref Range: 6-45 U/L 19 AST (SGOT) (REF) Latest Ref Range: 10-42 U/L 23 LDH TOTAL Latest Ref Range: 91-180 U/L 155 BILIRUBIN TOTAL Latest Ref Range: 0.1-1.5 mg/dL 0.4 GLOBULIN Latest Ref Range: 2.1-3.8 g/dL 2.1 Multidisciplinary Care: Palliative Care: Patient's Medications New [...] HE STARTS ON THE PREDNISONE . arrange neulasta in [place] with Dora [...] infusion, activate code blue and notify MD. OrderHissami MUNOZ affirmed that he has an active prescription for prednisone and will take 100 mg in t he morning with breakfast for 5 consecutive days starting tomorrow. JOAQUIM TEJEDA MD Portions of this chart may have been created with [employer] voice recognition software. Occasi onal wrong-word or [...] | | | | | [place], [place] | | | | | | [id number] | | | | | | | | +--------+---------+ + + + documented as of this encounter Results ECHO Complete (10/26/2016 11:35 [...] Room Number JR. Patient | | | [id number] Date of Study 10/26/2016 Number | | | Visit Number [id number] | | | Referring Physician NIKHIL MARCH Number | | | C Date of | | | 1950 Membership Advisor VALENTIN ADRIAN, | | | | | | [facility] Age 66 year(s) | | | Interpreting YAMEL DYKES, | | | Government Affairs Director Gender | | | Male Nurse Procedure [...] Index: 31 mL/m^2 | | | EF Ugmbucvfh78% Left Ventricle Diastolic Dimension: 5.5 cm | [...] | LA Vol/BSA Index: 31 mL/m^2 EF Vuvlsuops87% | | | | | | Left [...] Rad Results In - 10/27/2016 7:09 AM [facility] Transthoracic Echocardiography Report | | (TTE) Demographics Patient Name DANIEL Leon Room Number JR. | | Patient [id number] Date of Study 10/26/2016 Number Visit Number | | [id number] Referring Physician NIKHIL MARCH | | Number C Date of 1950 | | Membership Advisor VALENTIN ADRIAN, | | [facility] Age 66 year(s) Interpreting YAMEL DYKES, | | Government Affairs Director Gender Male | | NurseProcedureType of Study [...] ml LA Vol/BSA Index: 31 mL/m^2 EF Eatcijese73% Left | | Ventricle Diastolic Dimension: 5.5 [...] | LA Vol/BSA Index: 31 mL/m^2 EF Vykufaxjf86% | | | | Left Ventricle | [...]
--- OUTSIDE RECORDS SUMMARY | ~2019-09-27 | XMS | Encounter Summary ---
Demographics + + + | Address | [address] | | | [place] [address] | + + + | Home Phone [...] [place] | | | | | [address] | | + + + + + Care Team Providers + +------+ + | Care Health Information Management Director Name | Role | Phone [...] | | | | | | [place] [address] | [address] | | | | | | Phone: | Phone: | | | | | | [phone] | [phone] | | | | | | Fax: | Fax: | | | | | | [phone] | [phone] | +--------+ + + + + + Reason for Visit + + + | Reason | Comments | + + + | Follow-up | | + + + Encounter Details +--------+ + + + + | Date | Type | Department | Care Team | Description | +--------+ + + + + | 01/01/ | Hospital | [facility] | Mohamud, | Lymphedema of left | | 2017 | Encounter | [facility] | Joaquim Benson MD [address] | lower extremity | | | | [facility] CL[facility]IC [address] [place] | (Primary Dx); | | | | [address] [place] | [place] [address] | Diffuse large B-cell | | | | [place] [address] | [phone] | lymphoma of | | | | [phone] | | intra-abdominal | | | | [...] Hematology/Oncology Progress Note [facility] [place] Pt. Name/Age/: Joaquim Sanchez Jr. 66 y.o. 1950 Med. Record Number: [id number] Date of admission: 01/01/2017 Identifying Statement: Joaquim Sanchez Jr. is a 66 y.o. male from [address] [address] with Mixed Diffuse Large B-Cell/Follicular Lymphoma. The [...] lower extremity. CT abdomen/Pelvis with contrast 2016 ([facility]). Ex tensive periaortic lymphadenopathy (1.8 cm and 2.1 cm respectively), extensive adenopathy ex tending out along the left common iliac artery and encasing the left external iliac artery ( 4.4 cm) with compromise of the left external iliac vein. 2. Open laparotomy with LEFT ileal retroperitoneal lymph node biopsy ([facility], [facility]) June 242015. Specimen #[id number] ([facility]); Diffuse Large B-Cell [...] 10. CT Abdomen/Pelvis at [facility] [place] on September 12, 2016; Positive Response [...] (PRIMA protocol). 14. Repeat CT scan at [place], [place] on December 01, 2016 demonstrated [facility] left iliac lymph node chain adenopathy. Region [...] also notable for the fact that Rios's creative recruiter has prescribed Sineme t 10/100 for restless [...] [employer], Joaquim Aguirer M.D., Group Chair Diagnostic studies: Available data [...] 2006 , Vol. 47, No. 6, pp 8780-9724. In the first article, an observational study [...] [place] Marie, blood counts reviewed, team ag britnti that it is save and appropriate to [...] this chart may have been created with [employer] recognition software. Occasi onal wrong-word or sound-alike [...] | | | | | [place], [place] | | | | | | [address] | | | | | | | [...]
--- OUTSIDE RECORDS SUMMARY | ~2019-09-27 | XMS | Encounter Summary ---
Demographics + + + | Address | [address] | | | [place] [address] | + + + | Home Phone | | + + + | Preferred Language | Unknown | + + + | Marital Status | | + + + | Shinto Affiliation | 1013 | + + + | Race | Unknown | + + + | Ethnic Group | Unknown | + + + Author + + + | Author | [facility] | | | and [place] | + + + | Organization | [facility] | | [...] [place] | | | | | [address] | | + + + + + Care Team Providers + +------+ + | Care Seam Rubbing Machine Operator Name | Role | Phone [...] | +--------+ + + + + | 09/14/ | Hospital | [facility] | Miguel Zuniga | Diffuse large B-cell | | 2016 | Encounter | [facility] | MD Gerber [address] | lymphoma of | | | | [facility] [address] | [address] [place] | intra-abdominal | | | | [address] [place] | [place] [address] | lymph nodes (HCC) | | | | [place] [address] | [phone] | (Primary Dx); | | | | [phone] | | Lymphedema of left | | [...] + + + | Blood Pressure | 126/77 | 09/14/2016 1:56 PM | | | | | PST | | + + + + + | Pulse | 66 | 09/14/2016 1:56 PM | | | | | PST | | + + + + + | Temperature | 36.8 C (98.3 F) | 09/14/2016 1:56 PM | | | | | PST | | + + + + + | Respiratory Rate | 18 | 09/14/2016 1:56 PM | | | | | PST | | + + + + + | Oxygen Saturation | 96% | 09/14/2016 1:56 PM | | | | | PST | | + + + + + | Inhaled Oxygen | - | - | | | Concentration | | | | + + + + + | Weight | 138.8 kg (305 lb | 09/14/2016 1:56 PM | | | | 14.4 oz) | PST | | + + + + + | Height | - | - | | + + + + + | Body Mass Index | 39.28 | 07/18/2016 4:16 PM | | | [...] encounter Progress Notes Miguel Zuniga MD - 09/14/2016 3:09 PM PSTFormatting of this note might be diff erent from the original. Hem-Onc Progress Note [facility] Pt. Name/Age/: Gerber Galindo 66 y.o. 1950 Med. Record Number: [id number] Date of admission: 09/14/2016 Assessment and plan: 1. 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 Based on that finding a reminder concerning patient's risk for development of neutrop enic infection and have asked patient to be on the lookout for and avoid those with obvious contagion. Reminder concerning handwashing particularly when visiting public places. Instr uctions to contact us should chills develop and temperature elevation particularly to that g reater than 101. Review of CT scans offering congratulations to emerging objective response to treatment. P atient unable to have earlier pretreatment PET/CT staging because of claustrophobia. We dis cussed the likelihood of some residual abnormal soft tissue particularly in the left iliac l ymphatic bed not unusual in patients undergoing remission induction therapy. Additional discussion with regard to patient's advancing neuropathy, mostly still sensory i n character. We discussed the possibility of dose reduction of patient's vincritine should symptoms advance, particularly affecting activities of daily living. Subjective: The patient chart and medications were reviewed in detail and the patient was seen and exam inedChristian Galindo is a 66 y.o. male returns today for a isaias check having now completed a th ird cycle of combination R CHOP chemotherapy through the second week of August of this yea r. Patient also returns to review results of restaging evaluation following earlier CT scan of chest abdomen and pelvis from 2 days previously. Patient mostly doing well in the time since beginning treatments earlier in June followi ng discovery of bulky lymphadenopathy as being likely causative for the development of left leg swelling. In the time since beginning treatment patient has noticed some diminution in the degree of swelling although patient still experiences a sense of heaviness in the left l eg and wonders if exercise might be able to help prevent this. He is also been using a lymp hedema hosiery as a means of helping mobilize fluid in the leg. Treatment has been generally well-tolerated although patient beginning to experience more i n the way of symptoms of worsening sensory peripheral neuropathy. This had actually been pr esent prior to treatment and for which patient has been taking gabapentin to control discomf ort. He describes increasing difficulty however using keyboard for example when typing. He has not however had weakness either in his wrists or in his ankles. PSH: Reviewed, no changes to admission H&P. Review of Systems: Constitutional: Reports energy level is very low. Reports a lot of nausea recently, medicat ions help a little, but doesn't go away. 6 lb weight gain since last visit. Denies high feve rs, shaking chills, anorexia, vomiting, weight loss, or night sweats. Appetite without shannon es. Ear, Nose, Mouth, Throat: Reports sore gums on right upper side of mouth. Denies dysphagia, or tinnitus. Cardiovascular: Denies shortness of breath, dyspnea on exertion, chest pain, palpitations o r orthopnea. Respiratory: Denies cough, hemoptysis, or sputum production. Gastrointestinal: Reports intermittent upper abdominal pains that come and go on their own without intervention. Intermittent constipation and diarrhea. Denies melena, or bright red b lood per rectum. Genitourinary: Reports occasional burning with urination. Denies hematuria Musculoskeletal: Reports intermittent joint pains. Denies joint pain or tenderness. Neurologic: Reports occasional headaches after chemotherapy, and vision changes after chemo . Cleared up at this time. Numbness and tingling in tips of toes and fingers, for last 3 day s. Improving today. Endocrine: Reports bloating in stomach and swelling in left leg from hip down, states this is ongoing and getting a little bit better. Hematologic: Gets occasional nosebleeds, states this happened before cancer as well. Integumentary: Reports very dry skin. Pain: 3/10 headache right now. Review of systems as above otherwise negative Scheduled Medications: Continuous Infusions: PRN Meds:. Allergy: Allergies Allergen Reactions Codeine "wires him up" Objectives: Temp: 36.8 C (98.3 F) BP: 126/77 mmHg Pulse: 66 Resp: 18 SpO2: 96 % on Min/Max Temp past 24 hours:Temp Av.8 C (98.3 F) Min: 36.8 C (98.3 F) Max: 3 6.8 C (98.3 F) No intake or output data in the 24 hours ending 09/14/16 1510 Wt. Admission: Weight: (!) 138.755 kg (305 lb 14.4 oz) Wt. Current: Weight: (!) 138.755 kg (305 lb 14.4 oz) Physical Exam: Exam: General: The patient is alert and oriented. No acute distress. HEENT: PERRL, Oral mucosa intact. Neck is supple. Genitourinary: Deferred. Extremities: Nontender, no erythema, no edema. Skin: No rashes, bruising, or petechiae. Lymph: [...] the Assessment and Plan. Recent Labs Lab 09/14/16 1331 WBC 1.1* HGB 10.1* HCT 29.9* PLT 88* Recent Labs Lab 09/14/16 1331 NA 140 K 4.1 CL 105 CO2 32* BUN 15 CREA 1.01 GLU 107 CALCIUM 9.1 BILITOT 0.4 AST 17 ALT 26 ALKPHOS [address] scan of the chest abdomen pelvis is available to review today with images that I was bot h able to view, compared to patient's pretreatment studies from June and then to demonstr ate to patient including patient's spouse. There has been a gratifying reduction in adenopa thy particularly in the retroperitoneum extending into the iliac portion of the pelvis which now demonstrates only residual adenopathy of about 2 cm. The overall impression is that of a considerable objective response to treatment Electronically signed by: Miguel Zuniga, 09/14/2016 15:10 [facility] TIME SPENT 25 MIN. > 50% AT BEDSIDE, WITH FAMILY/PATIENT IN CARE AND CARPENTER SUPERVISOR WOODEN SHIP ON UNIT AND CO ORDINATION OF CARE Portions of this chart may have been created with [employer] voice recognition software. Occasi onal wrong-word or sound-alike substitutions may have occurred due to the inherent valencia itations of voice recognition software. Please read the chart carefully and recognize, using context, where these substitutions have occurred. [facility] Hospital[facility]al[facility] Paula RN - 09/14/2016 1:43 PM PSTREVIEW OF SYSTEMS Constitutional: Reports energy level is very low. Reports a lot of nausea recently, medicat ions help a little, but doesn't go away. 6 lb weight gain since last visit. Denies high fev ers, shaking chills, anorexia, vomiting, weight loss, or night sweats. Appetite without ch anges. Ear, Nose, Mouth, Throat: Reports sore gums on right upper side of mouth. Denies dysphagia, or tinnitus. Cardiovascular: Denies shortness of breath, dyspnea on exertion, chest pain, palpitations o r orthopnea. Respiratory: Denies cough, hemoptysis, or sputum production. Gastrointestinal: Reports intermittent upper abdominal pains that come and go on their own without intervention. Intermittent constipation and diarrhea. Denies melena, or bright red b lood per rectum. Genitourinary: Reports occasional burning with urination. Denies hematuria Musculoskeletal: Reports intermittent joint pains. Denies joint pain or tenderness. Neurologic: Reports occasional headaches after chemotherapy, and vision changes after chemo . Cleared up at this time. Numbness and tingling in tips of toes and fingers, for last 3 day s. Improving today. Endocrine: Reports bloating in stomach and swelling in left leg from hip down, states this is ongoing and getting a little bit better. Hematologic: Gets occasional nosebleeds, states this happened before cancer as well. Integumentary: Reports very dry skin. Pain: 3/ headache right now. Note: Here for follow up with Dr. Zuniga, Dr. Mallory is out, and labs. My chart: Active. documented in th is encounter Plan of Treatment +--------+---------+ + + + | Date | Type | Specialty | Care Team | Description | +--------+---------+ + + + | 10/01/ | Office | Cardiology | Karen Bansal, | | | 2019 | Visit | | MD Patricia JOHNSON | | | | | | [place] | | | | | | [phone] | | | | | | | | +--------+---------+ + + + documented as of this encounter Procedures + +--------+ + + + | Procedure Name | Priori | Date/Time | Associated Diagnosis | Comments | | | ty | | | | + +--------+ + + + | EXTRA GOLD TOP TUBE | Routin | 09/14/2016 | Diffuse large | Results for this | | | e | 1:41 PM | B-cell lymphoma of | procedure are in the | | | | PST | intra-abdominal | results section. | | | | | lymph nodes (HCC) | | | | | | Lymphedema of left | | | | | | lower extremity | | + +--------+ + + + | CBC WITH | STAT | 09/14/2016 | Diffuse large | Results for this | | DIFFERENTIAL | | 1:31 PM | B-cell lymphoma of | procedure are in the | | | | PST | intra-abdominal | results section. | | | | | lymph nodes (HCC) | | | | | | Lymphedema of left | | | | | | lower extremity | | + +--------+ + + + | LACTATE | STAT | 09/14/2016 | Diffuse large | Results for this | | DEHYDROGENASE | | 1:31 PM | B-cell lymphoma of | procedure are in the | | | | PST | intra-abdominal | results section. | | | | | lymph nodes (HCC) | | | | | | Lymphedema of left | | | | | | lower extremity | | + +--------+ + + + | COMPREHENSIVE | STAT | 09/14/2016 | Diffuse large | Results for this | | METABOLIC PANEL | | 1:31 PM | B-cell lymphoma of | procedure are in the | | | | PST | intra-abdominal | results section. | | | | | lymph nodes (HCC) | | | | | | Lymphedema of left | | | | | | lower extremity | | + +--------+ + + + | IMAGING REPORT - | | 09/12/2016 | | Results for this | | EXTERNAL SCAN | | 12:00 AM | | procedure are in the | | | | PST | | results section. | + +--------+ + + + documented in this encounter Results Extra Gold Top Tube (09/14/2016 1:41 PM PST) + +-------+ + + + | Component | Value | Ref Range | Performed | Pathologist | | | | | At | Signature | + +-------+ + + + | Extra Gold | Done | | [facility] | | | Top Tube | | | [facility] | | [...] + | [facility] | [address] | [place] | [phone] | | [facility] | | [id number] | | | - LABORATORY | | | | + + + + + CBC with Differential (09/14/2016 1:31 PM PST) + + + + + + | Component | Value | Ref Range | Performed | Pathologist | | | | | At | Signature | + + + + + + | WBC | 1.1 (LL)Comment: | 4.0 - 11.0 K/uL | [facility] | | | | Critical Result called | | [facility] | | | | to and read back by | | MEDICAL | | | | Ju Child on | | CENTER - | | | | 09/14/2016 at 14:06 by | | LABORATORY | | | | Desirae Dinh. | | | | + + + + + + | RBC | 3.40 (L) | 4.30 - 5.70 | [facility] | | | | | M/uL | [facility] | | | | | | [facility] | | | | | | CENTER - | | | | | | LABORATORY | | + + + + + + | Hemoglobin | 10.1 (L) | 13.5 - 18.0 | [facility] | | | | | g/dL | [facility] | | | | | | [facility] | | | | | | CENTER - | | | | | | LABORATORY | | + + + + + + | Hematocrit | 29.9 (L) | 40.0 - 51.0 % | [facility] | | | | | | [facility] | | | | | | [facility] | | | | | | CENTER - | | | | | | LABORATORY | | + + + + + + | MCV | 88.1 | 83.0 - 101.0 fL | [facility] [...] + + + + | RDW-CV | 20.7 (H) | <15.0 % | [facility] | | | | | [facility] | | | | | | [facility]ICAL | | | | | | CENTER - | | | | | | LABORATORY | | + + + + + + | Platelet | 88 (L) | 140 - 440 K/uL | [facility] | | | Count | | | [facility] | | | | | | [facility]ICAL | | | | | | CENTER - | | | | | | LABORATORY | | + + + + + + | MPV | 8.2 | fL | [facility] | | | | | [facility] | | | | | | [facility] | | | | | | CENTER - | | | | | | LABORATORY | | + + + + + + | % | 31.8 (L) | 45.0 - 82.0 % | [facility] | | | Neutrophils | | | [facility] | | | | | | MEDICAL | | | | | | CENTER - | | | | | | LABORATORY | | + + + + + + | % | 49.8 (H) | 20.0 - 45.0 % | [facility] | | | Lymphocytes | | | [facility] | | | | | | MEDICAL | | | | | | CENTER - | | | | | | LABORATORY | | + + + + + + | % Monocytes | 13.5 (H) | 4.0 - 12.0 % | [facility] [...] + | Absolute | 0.40 (L) | 1.80 - 8.50 | [facility] | | | Neutrophils | | K/uL | [facility] | [...] + | [facility] | [address] | [place] | [phone] | | [facility] | | [address] | | | - LABORATORY | | | | + + + + + Comprehensive Metabolic Panel (09/14/2016 1:31 PM PST) + + + + + + | Component | Value | Ref Range | Performed | Pathologist | | | | | At | Signature | + + + + + + | Na | 140 | 136 - 149 | [facility] | | | | | mmol/L | [facility] | | | | | | MEDICAL | | | | | | CENTER - | | | | | | LABORATORY | | + + + + + + | K | 4.1 | 3.5 - 5.1 | [facility] | [...] + + + + | CO2 | 32 (H) | 24 - 31 mmol/L | [facility] [...] mL/min/1.73m2 | [facility] | | | GABONESE | RATE,ESTIMATED | | MEDICAL | | | | mL/min/1.15i5Oakn than | | CENTER - | | [...] | 9.1 | 8.3 - 10.5 | [facility] | | | | | mg/dL | [facility] | | | | | | MEDICAL | | | | | | CENTER - | | | | | | LABORATORY | | + + + + + + | Albumin | 3.4 | 3.2 - 5.0 g/dL | [facility] | | | | | | [facility] [...] + + + + | AST | 17Comment: This is an | 10 - 42 [...] + | [facility] | [address] | [place] | [phone] | | [facility] | | [address] | | | - LABORATORY | | | | + + + + + Lactate Dehydrogenase (09/14/2016 1:31 PM PST) + +-------+ + + + | Component | Value | Ref Range | Performed | Pathologist | | | | | At | Signature | + +-------+ + + + | LDH TOTAL | 144 | 91 - 180 U/L | [facility] [...] [address] | [place] | [phone] | | [facility] | | [phone] | | | - LABORATORY | | | | + + + + + IMAGING REPORT - EXTERNAL SCAN (09/12/2016 12:00 AM PST) + + + | [...]
--- OUTSIDE RECORDS SUMMARY | ~2019-09-27 | XMS | Encounter Summary ---
Demographics + + + | Address | [address] | | | [place] [address] | + + + | Home Phone [...] [place] | | | | | [address] | | + + + + + Care Team Providers + +------+ + | Care Credit Control Clerk Name | Role | Phone | + [...] [address] [place] | | | | | [place], | [place] [address] | | | | | [place] [address] | [phone] | | | | | [phone] | | | +--------+ + + + [...] [place] | | | | | | [address] | | | | | | | | +--------+---------+ + + + documented as of this encounter Visit Diagnoses Not on filedocumented in this encounter"
--- OUTSIDE RECORDS SUMMARY | ~2019-09-27 | XMS | Encounter Summary ---
Demographics + + + | Address | [address] | | | [place] [address] | + + + | Home Phone | | + + + | Preferred Language | Unknown | + + + | Marital Status | | + + + | Pentecostal Affiliation | 1013 | + + + [...] [place] | | | | | [address] | | + + + + + Care Team Providers + +------+ + | Care Economic Development Specialist Name | Role | Phone | [...] + + | 04/16/ | Refill | [facility] | Mohamud, | Medication Refill | | 2017 | | MED [facility] | Gerber Benson MD [address] | | | | | [facility] [address] [place] | | | | | [address] [place] | [place] [address] | | | | | [place] [address] | [phone] | | | | | [phone] | | | +--------+--------+ + + + [...] [place] | | | | | | [address] | | | | | | | | +--------+---------+ + + + documented as of this encounter Visit Diagnoses + + | Diagnosis | + + | Diffuse large B-cell lymphoma of intra-abdominal lymph nodes (HCC) Other malignant | | lymphomas of intra-abdominal lymph nodes | + + documented in this encounter"
--- OUTSIDE RECORDS SUMMARY | ~2019-09-27 | XMS | Encounter Summary ---
Demographics + + + | Address | [address] | | | [place] [address] | + + + | Home Phone [...] [place] | | | | | [address] | | + + + + + Care Team Providers + +------+ + | Care Patient Intake Representative Name | Role | Phone | + [...] | | | nal lymph | [place] [address] | [address] Phone: | | | | | nodes (HCC) | Phone: | [phone] | | | | | Procedures | [phone] | Fax: | | | | | [address] | Fax: | [phone] | | | | | | [phone] | | +--------+--------+ + + + + Encounter Details +--------+ + + + + | Date | Type | Department | Care Team | Description | +--------+ + + + + | 12/03/ | Hospital | [facility] | Mohamud, | Diffuse large B-cell | | 2018 | Encounter | [facility] | Joaquim Benson MD [address] | lymphoma of | | | | ONCOLOGY CLINIC [address] | [address] [place] | intra-abdominal | | | | [address] [place] | [place] [address] | lymph nodes (HCC) | | | | [place] [address] | [phone] | | | | | [phone] | | | +--------+ + + + [...] + + + | Blood Pressure | 116/69 | 12/03/2017 8:44 AM | | | | | PDT | | + + + + + | Pulse | 53 | 12/03/2017 8:44 AM | | | | | PDT | | + + + + + | Temperature | 36.2 C (97.2 F) | 12/03/2017 8:44 AM | | | | | PDT | | + + + + + | Respiratory Rate | 18 | 12/03/2017 8:44 AM | | | | | PDT | | + + + + + | Oxygen Saturation | 94% | 12/03/2017 8:44 AM | | | | | PDT | | + + + + + | Inhaled Oxygen | - | - | | | Concentration | | | | + + + + + | Weight | 147 kg (324 lb 1.2 | 12/03/2017 8:44 AM | | | | oz) | PDT | | + + + + + | Height | - | - | | + + + + + | Body Mass Index | 41.61 | 07/18/2016 4:16 PM | | | [...] encounter Progress Notes Joaquim Mallory MD - 12/03/2017 8:27 AM PDTFormatting of this note might be differe nt from the original. Hematology/Oncology Progress Note [facility] [place] Pt. Name/Age/: Joaquim Snachez Jr. 67 y.o. 1950 [facility]. Record Number: [id number] Date of admission: 12/03/2017 The patient's primary care provider is Kelsey Quintanilla MD. Identifying Statement: Joaquim Sanchez Jr. is a 67 y.o. male from [address] [address] with Mixed Diffuse Large B-Cell/Follicular Lymphoma in [...] contrast 2016 ([facility] Ex tensive periaortic lymphadenopathy (1.8 cm and 2.1 cm respectively), extensive adenopathy ex tending out along the left common iliac artery and encasing the left external iliac artery ( 4.4 cm) with compromise of the left external iliac vein. 2. Open laparotomy with LEFT ileal retroperitoneal lymph node biopsy ([place], [facility]) June 242015. Specimen #[id number] ([facility]); Diffuse Large B-Cell lymph raciel, germinal [...] 04, 2016. 10. CT Abdom[facility]elvis at [facility] on September 12, 2016; Positive [...] (PRIMA protocol). 14. Repeat CT scan at [place], [place] on December 01, [address] [...] [address]. [address] scan at [facility] on April 18, 2017 demonstrated decreased [...] [address] scan at [facility] on November 21, 2017 [...] Joaquim Sanchez Jr. returned to clinic on 12/03/2017 with his , Ayanna, for foll ow-up of composite diffuse large B-cell/follicular B-cell lymphoma. 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 Review of systems is notable for non-productive cough. Physical exam is notable for clear lung moore bilaterally. Clinical Data is notable for normal LDH. Grade 1 leukopenia without neutropenia, and grade 1 thrombocytopenia are noted, but are not dose limiting. November 21, 2017 CT scan at [facility] was reviewed and indicates ongoing diminution of residual left iliac lymphad enopathy. Assessment: Composite diffuse large B-cell/follicular lymphoma, stage IIIA or higher-[facility] ed. Plan; Proceed today with Cycle #8 of a planned 12 cycles of maintenance rituximab, 375 mg/m every 2 months for a total of 12 cycles. Review of Systems: REVIEW OF SYSTEMS Constitutional: Reports energy level is okay. Weight loss of 2 pounds. Denies high fevers, shaking chills, anorexia, nausea, vomiting, or night sweats. Appetite without changes. Ear, Nose, Mouth, Throat:Reports intermittent tinnitus continues, unchanged since last visi t. Denies odynophagia or dysphagia. Cardiovascular: Reports shortness of breath with exertion, continues, unchanged. Denies mika rtness of breath, chest pain, palpitations or orthopnea. Respiratory: Reports occasional cough and sputum production "feels like I need to cough jb ething up, and will cough real deep, not often". Denies hemoptysis. Gastrointestinal: Denies abdominal pain, constipation, diarrhea, melena, or bright red bloo d per rectum. Genitourinary: Denies hematuria or dysuria. Musculoskeletal: Reports chronic joint pain continues, especially in bilateral knees, ankle s, and feet unchanged. Neurologic: Reports numbness and tingling in bilateral feet continues, unchanged. Denies he adache or visual changes. Endocrine: Reports swelling in left leg and foot from lymphedema continues unchanged. Denie s heat/cold intolerance. Hematologic: Denies spontaneous bruising or [...] tablet Take 10 mg by mouth Daily. clindamycin (CLEOCIN) 150 mg capsule Take 150 mg by mouth 4 times daily. Take 2 capsule s by mouth every 6 hours until gone. clotrimazole-betamethasone (LOTRISONE) cream Apply topically Daily as [...] PRN Joaquim robles MD 500 Units at 12/03/17 1330 Allergies: Allergy: Allergies Allergen Reactions Codeine "wires [...] left lower extremity Objectives: Temp: 36.2 C (97.2 F) BP: 116/69 Pulse: 53 Resp: 18 SpO2: 94 % on Min/Max Temp past 24 hours:Temp Av.2 C (97.2 F) Min: 36.2 C (97.2 F) Max: 3 6.2 C (97.2 F) No intake or output data in the 24 hours ending 12/03/17 1639 Wt. Admission: Weight: (!) 147 kg (324 lb 1.2 oz) Wt. Current: Weight: (!) 147 kg (324 lb 1.2 oz) Wt Readings from Last 3 Encounters: 12/03/17 (!) 147 kg (324 lb 1.2 oz) 10/09/17 (!) 148.4 kg (327 lb 2.6 oz) 08/13/17 (!) 146.2 kg (322 lb 5 oz) Body mass index is 41.61 kg/m. Physical Exam: General: The patient is [...] in the Assessment and Plan. Results for JAOQUIM SANCHEZ JR. ( ) as of 12/03/2017 13:20 Ref. Range 12/03/2017 08:15 WBC Latest Ref Range: 4.0 - 11.0 K/uL 2.9 (L) RBC COUNT Latest Ref Range: 4.30 - 5.70 M/uL 4.33 Hgb Latest Ref Range: 13.5 - 18.0 g/dL 12.8 (L) Hct, Final Latest Ref Range: 40.0 - 51.0 % 37.4 (L) MCV Latest Ref Range: 83.0 - 101.0 fL 86.3 MCH Latest Ref Range: 28.0 - 35.0 pg 29.6 MCHC Latest Ref Range: 32.0 - 36.0 g/dL 34.3 RDW-CV Latest Ref Range: <15.0 % 16.0 (H) Platelet Count Latest Ref Range: 140 - 440 K/uL 99 (L) MPV Latest Units: fL 9.2 Absolute Neutrophils Latest Ref Range: 1.80 - 8.50 K/uL 1.80 Absolute Lymphocytes Latest Ref Range: 0.60 - 3.20 K/uL 0.80 Absolute Monocytes Latest Ref Range: 0.00 - 1.00 K/uL 0.30 Absolute Eosinophils Latest Ref Range: 0.00 - 0.40 K/uL 0.10 Absolute Basophils Latest Ref Range: 0.00 - 0.10 K/uL 0.00 % Neutrophils Latest Ref Range: 45.0 - 82.0 % 61.3 % Lymphocytes Latest Ref Range: 20.0 - 45.0 % 25.8 % Monocytes Latest Ref Range: 4.0 - 12.0 % 9.6 % Eosinophils Latest Ref Range: 0.0 - 5.0 % 2.6 % Basophils Latest Ref Range: 0.0 - 1.0 % 0.7 NA Latest Ref Range: 136 - 149 mmol/L 140 K Latest Ref Range: 3.5 - 5.1 mmol/L 4.2 Chloride Latest Ref Range: 98 - 109 mmol/L 108 Carbon dioxide Latest Ref Range: 24 - 31 mmol/L 26 ANION GAP Latest Ref Range: 3 - 16 mmol/L 6 GLUCOSE Latest Ref Range: 70 - 109 mg/dL 109 BUN Latest Ref Range: 7 - 18 mg/dL 17 Creatinine Latest Ref Range: 0.60 - 1.30 mg/dL 0.94 BUN/CREA Unknown 18.1 ALBUMIN Latest Ref Range: 3.2 - 5.0 g/dL 3.8 Albumin/Globulin ratio Latest Ref Range: 0.8 - 2.0 1.8 Total protein Latest Ref Range: 6.0 - 7.8 g/dL 5.9 (L) EGFR IF NOT Latest Ref Range: >=60 mL/min/1.73m2 >60 Calcium Latest Ref Range: 8.3 - 10.5 mg/dL 9.6 ALK PHOS Latest Ref Range: 40 - 110 U/L 47 ALT (SGPT) (REF) Latest Ref Range: 6 - 45 U/L 29 AST (SGOT) (REF) Latest Ref Range: 10 - 42 U/L 28 LDH TOTAL Latest Ref Range: 91 - 180 U/L 170 BILIRUBIN TOTAL Latest Ref Range: 0.1 - 1.5 mg/dL 0.7 GLOBULIN Latest Ref Range: 2.1 - 3.8 [...] 2006 , Vol. 47, No. 6, pp 9325-2125. In the first article, an observational study [...] Medications No medications on file Discontinued Medications GINSENG PO Take 2 tablets by mouth. Takes it for one week the week after chemo Procedure note: Day 1, Rituxan every 2 months x 2 years # 8 (56-day cycle) Released on 12/03/2017 8:15; Originally planned for 12/03/2017 Labs Lactate Dehydrogenase STAT, ONE TIME, 12/03/17 at 0815, For 1 occurrence OrderHistory Comprehensive Metabolic Panel STAT, ONE TIME, 12/03/17 at 0815, For 1 occurrence OrderHistory CBC with Differential STAT, ONE TIME, 12/03/17 at 0815, For 1 occurrence OrderHistory PRN Medications ethyl chloride spray Topical, PRN, Pain, Starting 12/03/17 at 0814 OrderHistory Nursing Orders OK to proceed with chemotherapy 12/03/17 - The treating provider is aware of grade 1 leukopenia without neutropenia, and grade 1 throm bocytopenia, and deems that it is safe and appropriate to proceed with rituximab. INFORMED CONSENT: The nature and character of [...] appr opriate to proceed with treatment with rituximab. .Electronically signed by: Joaquim menchaca MD 12/03/2017 9:09. OrderHistory Plans for discharge QFU CBC,CMP,LDH Port DRAW IN 2 months with 4 hour infusion. OrderHistory Pre-Medications acetaminophen (TYLENOL) tablet 650 mg 650 mg, Oral, ONCE, 12/03/17 at 0945, For 1 dose Give 30 minutes prior to riTUXimab. OrderHistory famotidine (PEPCID) injection 20 mg 20 mg, Intravenous, ONCE, 12/03/17 at 0945, For 1 dose Prior to administration, prepare a 20 mg dose by diluting 2 mL of famotidine 10 mg/mL to 10 mL with normal saline. OrderHistory CHEMOTHERAPY riTUXimab (RITUXAN) 1,000 mg in sodium chloride 0.9% 1,000 mL infusion 1,000 mg (rounded from 997.5 mg = 375 mg/m2 2.66 m2 Treatment plan recorded BSA), Intra venous, ONCE, Sun12/03/17 at 1015, For 1 dose Initial infusion: [...] (5 mL), Intercatheter, PRN, Line Care, Starting Sun12/03/17 at 0918 OrderHis tortamiko Mallory MD Portions of this chart may have been created with [employer] voice recognition software. Occasi onal wrong-word or [...] [place] | | | | | | [facility] [place] | | | | | | [address] | | | | | | | | +--------+---------+ + + + documented as of this encounter Visit Diagnoses + + | Diagnosis | + + | Diffuse large B-cell lymphoma of intra-abdominal lymph nodes (HCC) Other malignant | | lymphomas of intra-abdominal lymph nodes | + + documented in this encounter
--- OUTSIDE RECORDS SUMMARY | ~2019-09-27 | XMS | Encounter Summary ---
Demographics + + + | Address | [address] | | | [place] [address] | + + + | Home Phone | | + + + | Preferred Language | Unknown | + + + | Marital Status | | + + + | Latter Day Affiliation | 1013 | + + + [...] [place] | | | | | [address] | | + + + + + Care Team Providers + +------+ + | Care Chief Financial Officer Name | Role | Phone | [...] | | ONCOLOGY CLINIC [address] | [address] [facility] | | | | | [address] | [place] [address] | | | | | [place] [address] | [phone] | | | | | [phone] | | | +--------+ + + + [...] [place] | | | | | | [address] | | | | | | | | +--------+---------+ + + + documented as of this encounter Visit Diagnoses Not on filedocumented in this encounter"
--- OUTSIDE RECORDS SUMMARY | ~2019-09-27 | XMS | Encounter Summary ---
Demographics + + + | Address | [address] | | | [place] [address] | + + + | Home Phone | | + + + | Preferred Language | Unknown | + + + | Marital Status | | + + + | Synagogue Affiliation | 1013 | + + + | Race | Unknown | + + + | Ethnic Group | Unknown | + + + Author + + + | Author | [facility] | | | and [place] | + + + | Organization | [facility] | | [...] [place] | | | | | [address] | | + + + + + Care Team Providers + +------+ + | Care Spot Washer Name | Role | Phone | + [...] large b-cell | Gerber Benson, | [address] [place] | | | | | lymphoma, | MD [address] | [place], | | | | | intra-abdomi | [address] | [place] [address] | | | | | nal lymph | [place], | Phone: | | | | | nodes (HCC) | [place] [address] | [phone] | | | | | Procedures | Phone: | Fax: | | | | | [place] | [phone] | [phone] | | | | | RITUXIMAB | Fax: | | | | | | INJECTION, | [phone] | | | | | | 100 MG OK | | | | | | | MEPERIDINE | | | | | | | HYDROCHL | | | | | | | /100 MG OK | | | | | | | IV INFUSION, | | | | | | | HYDRATION, | | | | | | | 31-60 MIN | | | | | | | OK IV | | | | | | | INFUSION, | | | | | | | HYDRATION, | | | | | | | EA ADD HOUR | | | | | | | OK | | | | | | | ONDANSETRON | | | | | | | HCL | | | | | | | INJECTION, 1 | | | | | | | MG OK | | | | | | | DEXAMETHASON | | | | | | | E SODIUM | | | | | | | PHOS, 1 MG | | | | | | | OK | | | | | | | FOSAPREPITAN | | | | | | | T INJECTION, | | | | | | | 1 MG OK | | | | | | | PREDNISONE | | | | | | | IR OR DR | | | | | | | ORAL 1MG OK | | | | | | | | | | | | | | CYCLOPHOSPHA | | | | | | | MIDE 100 MG | | | | | | | INJ OK | | | | | | | DOXORUBICIN | | | | | | | HCL | | | | | | | INJECTION, | | | | | | | 10 MG OK | | | | | | | VINCRISTINE | | | | | | | SULFATE 1 MG | | | | | | | INJ OK | | | | | | | DIPHENHYDRAM | | | | | | | INE HCL | | | | | | | INJECTIO, 50 | | | | | | | MG OK | | | | | | | METHYLPREDNI | | | | | | | SOLONE | | | | | | | INJECTION, | | | | | | | 125 MG OK | | | | | | | DEXAMETHASON | | | | | | | E SODIUM | | | | | | | PHOS, 1 MG | | | | | | | OK | | | | | | | INJECTION, | | | | | | | PEGFILGRASTI | | | | | | | M 6MG OK | | | | | | | NORMAL | | | | | | | SALINE | | | | | | | SOLUTION | | | | | | | INFUS, 500 | | | | | | | ML OK | | | | | | | NORMAL | | | | | | | SALINE | | | | | | | SOLUTION | | | | | | | INFUS, 250 | | | | | | | ML OK | | | | | | | STERILE | | | | | | | WATER/SALINE | | | | | | | , 10 ML OK | | | | | | | CHEMOTHER, | | | | | | | IV PUSH,EA | | | | | | | ADD DRUG OK | | | | | | | CHEMOTHER, | | | | | | | IV INFUSION, | | | | | | | 1 HR OK | | | | | | | CHEMOTHER, | | | | | | | IV INFUSION, | | | | | | | EA HR OK | | | | | | | CHEMOTHER,NO | | | | | | | N-HORMONE | | | | | | | ANTI-NEOPL, | | | | | | | SUB-Q/IM OK | | | | | | | [...] + + + + | 04/23/ | [facility] | [facility] | Miguel Zuniga | 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 | | | | INFUSION [address] | [address] [place] | intra-abdominal | | | | [place], | [place], [place] [address] | lymph nodes (HCC) | | | | [place] [address] | [phone] | | | | | [phone] | | | +--------+ + + + [...] | | | | | [place], [place] | | | | | | [address] | | | | | | | [...] + | [facility] | [address] | [place] | [phone] | | [facility] | | [address] | | | - LABORATORY | | [...] mL/min/1.73m2 | [facility] | | | [facility] | RATE,ESTIMATED | | MEDICAL | | | | mL/min/1.12v9Ifda than | | CENTER - | | [...] | 9.2 | 8.3 - 10.5 | [facility] | | | | | mg/dL [...] [address] | [place] | [phone] | | [facility] | | [address] | | | - LABORATORY | | [...] [address] | [place] | [phone] | | [facility] | | [address] | | | - LABORATORY | | [...]
--- OUTSIDE RECORDS SUMMARY | ~2019-09-27 | XMS | Encounter Summary ---
Demographics + + + | Address | [address] | | | [place] [address] | + + + | Home Phone [...] + | Author | [facility] | | | and [place] | + + + | Organization | [facility] | | | [...] [place] | | | | | [address] | | + + + + + Care Team Providers + +------+ + | Care Application Security Engineer Name | Role | Phone | + +------+ + | Earle Chacko MD | PCP | | + +------+ + Encounter Details +--------+ + + + + | Date | Type | Department | Care Team | Description | +--------+ + + + + | 09/26/ | Hospital | [facility] | Mohamud, | Diffuse large B-cell | | 2017 | Encounter | MED [facility] MED[facility] | Joaquim Benson MD [address] | lymphoma of | | | | ONCOLOGY CLINIC [address] | [address] [place] | intra-abdominal | | | | [address] [place] | [place] [address] | lymph nodes (HCC) | | | | [place] [address] | [phone] | (Primary Dx) | | | | [phone] | | | +--------+ + + + [...] nt from the original. Hematology/Oncology Progress Note [facility] [place] Pt. Name/Age/: Joaquim Sanchez 66 y.o. 1950 [facility]. Record Number: [id number] Date of admission: 09/26/2016 Identifying Statement: Joaquim Sanchez is a 66 y.o. male from [address] [place] [address] with Diffuse Large B-Cell Lymphoma. The patient [...] lower extremity. CT abdomen/Pelvis with contrast 2016 ([facility]). Ex tensive periaortic lymphadenopathy (1.8 cm and 2.1 cm respectively), extensive adenopathy ex tending out along the left common iliac artery and encasing the left external iliac artery ( 4.4 cm) with compromise of the left external iliac vein. 2. Open laparotomy with LEFT ileal retroperitoneal lymph node biopsy ([facility]) June 242015. Specimen #[id number] ([facility]); Diffuse Large B-Cell lymph [...] September 04, 2016. 10. CT Abdomen/Pelvis at [facility] [place] on September 12, 2016; Positive [...] fact that Rios underwent CT scan at [facility] in [place], [place] on September 12, 2016 that demonstrated [...] 14:22 Note Time: 09/26/2016 14:14 Status: Signed Operating Room Manager: Olivia Portillo OT (Occupational Therapist) Expand All Collapse All [facility] OT OP [address] [place] [address] Occupational Therapy Discharge Note Date: 09/26/2016 Patient Information Patient Name: Joaquim Sanchez Date of : 1950ge: 66 y.o. History Encounter Diagnoses Code Name Primary? I89.0 Lymphedema of left lower extremity Yes Date of Onset: 2016 Referring Provider: Joaquim Tejeda MD Rehab Precautions Office Visit from 08/24/2016 in [facility] OT OP Rehab Precautions Precautions None Rehab Learning Style Office Visit from 08/24/2016 in [facility] OT OP Learning Style Patient's [...] of an appropriate compression garm ents for jail management of edema. Goal 3 Status: Goal met Plan Date of Onset: 2016Start of Care Date: 08/24/2016 Requested # of Visits: 8 visits 1x/week for 8 weeks Certification From: 08/24/2016Certification To: 10/24/2016 Treatment Plan/Interventions [address] - OT [id number] - Therapeutic [id number] - Therapeutic [id number] - Manu al Therapy Patient and/or family [...] concerns at this time. PLAN: Discharge to [facility]. Electronically signed by: Olivia Portillo OT, 09/26/2016 [...] this chart may have been created with [employer] voice recognition software. Occasi onal wrong-word or [...] | | | | | [place] | | | | | | [...]
--- OUTSIDE RECORDS SUMMARY | ~2019-09-27 | XMS | Encounter Summary ---
Demographics + + + | Address | [address] | | | [place] [address] | + + + | Home Phone [...] [place] | | | | | [address] | | + + + + + Care Team Providers + +------+ + | Care Bindery Operator Name | Role | Phone | + +------+ + | Earle Chacko MD | PCP | | + +------+ + Encounter Details +--------+ + + + + | Date | Type | Department | Care Team | Description | +--------+ + + + + | 07/19/ | Documentati | [facility] | Olga Pepe | | | 2016 | on | MED CTR MEDICAL | J, PharmD [address] | | | | | ONCOLOGY CLINIC [address] | [address] | | | | | [address] [place] | [place] [address] | | | | | [place] [address] | [phone] | | | | | [phone] | | | +--------+ + + + [...] encounter Progress Notes Olga Pepe, PharmD - 07/19/2016 1:04 PM PDTFormatting of this note might be differ ent from the original. IDT PATIENT MEDICATION/PROFILE REVIEW [facility] Pharmacy Recommendation ____XX Observation only- carvedilol and atrovastatin can increase the concentration of doxo rubicin, however clinical data is lacking. Therefore recommend observation for doxorubicin t oxicities and adjustments based upon tolerance/clinical symptoms. Pharmacy Assessment Therapy emetogenicity risk vs. supportive meds ordered: moderate/appropriate Drug interactions of concern: carvedilol and atrovastatin can increase the concentration of doxorubicin. Allergy/Duplicate/Contraindications/Other: NA Lab-based dose adjustments suggested: No baseline labs to assess. Objective Data Gerber Galindo is a 66 y.o. male , Wt 135 kg, Ht 188 cm, BSA 2.66 m2, BMI There is no weight on file to calculate BMI., Est CrCl = No baseline labs available Allergies: Codeine Diagnosis:The encounter diagnosis was Diffuse large B-cell lymphoma of intra-abdominal lymp h nodes (HCC). Treatment Regimen: R-CHOP Chemotherapy/Supportive therapy: rituximab Cyclophosphamide Doxorubicin Vincristine Prednisone fosaprepitant palonosetron Dexamethasone Ondansetron Lorazepam Reference/citation for therapy: Nabil Braun et al. CHOP chemotherapy plus rituximab compared with CHOP alone in elderly patients with diffuse lkllz-Z-xyln lymphoma. NEJM 2002; 346:235- 242. Pertinent Medical History: has a past medical history of Chronic ischemic heart disease; D epression; Dyspnea; Esophageal reflux; Hyperglycemia; Hyperlipemia; Hypertension; Benign maxwell plasm of colon; Obesity; and Superficial injury of forearm. Other pertinent objective data: no central access, will give cycle 1 via peripheral line Current Medications: Current Outpatient Prescriptions on File Prior to Visit Medication Sig Dispense Refill aspirin 81 mg [...] MG tablet 0 No current facility-administered medications on file prior to visit. Pertinent Baseline Labs: No results found for: WBC, NEUABS, PLT, HGB, HCT, CREA, BILITOT, AST, ALT, INR Electronically signed by: Olga Pepe PHARMD 07/19/2016 12:52 documented in this encounter Plan of Treatment +--------+---------+ + + + | Date | Type | Specialty | Care Team | Description | +--------+---------+ + + + | 10/01/ | Office | Cardiology | Karen Bansal, | | | 2019 | Visit | | MD Patricia JOHNSON | | | | | | [place], [place] | | | | | | [address] | | | | | | | | +--------+---------+ + + + documented as of this encounter Visit Diagnoses + + | Diagnosis | + + | 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
--- OUTSIDE RECORDS SUMMARY | ~2019-09-27 | XMS | Encounter Summary ---
Demographics + + + | Address | [address] | | | [place] [address] | + + + | Home Phone [...] + + | Author | [facility] | | | and [place] | + + + | Organization | [facility] | | | [...] [place] | | | | | [address] | | + + + + + Care Team Providers + +------+ + | Care Supervisor Special Services Name | Role | Phone | + [...] | Diffuse | Nikhil, | [address] | | | | | large B-cell | Joaquim C, | [place], | | | | | lymphoma of | MD [address] | [place] | | | | | | [address] | [address] | | | | | intra-abdomi | [place], | Phone: | | | | | nal lymph | [place] [address] | [phone] | | | | | nodes (HCC) | Phone: | Fax: | | | | | Procedures | [phone] | [phone] | | | | | ECHO | Fax: | | | | | | Complete | [phone] | | +--------+--------+ + + + + [...] | Diffuse | Nikhil, | [address] | | | | | large B-cell | Joaquim Benson, | [place], | | | | | lymphoma of | [address] | [place] | | | | | | [address] | [address] | | | | | intra-abdomi | [place], | Phone: | | | | | nal lymph | [place] [address] | [phone] | | | | | nodes (HCC) | Phone: | Fax: | | | | | Procedures | [phone] | [phone] | | | | | ECHO | Fax: | | | | | | Complete | [phone] | | +--------+--------+ + + + + Encounter Details +--------+ + + + + | Date | Type | Department | Care Team | Description | +--------+ + + + + | 10/26/ | Hospital | [facility] | Nikhil, | Diffuse large B-cell | | 2017 | Encounter | MED CTR ECHO [address] | Joaquim Benson MD [address] | lymphoma of | | | | [place] | [address] [place] | intra-abdominal | | | | [place] [address] | [place] [address] | lymph nodes (HCC) | | | | [phone] | [phone] | | | | | | | [...] [place] | | | | | | [address] | | | | | | | [...] Room Number JR. Patient | | | [id number] Date of Study 10/26/2016 Number | | | Visit Number [id number] | | | Referring Physician NIKHIL MARCH Number | | | C Date of | | | 1950 S[employer] Et[employer] Developer VALENTIN OLIVEROS, | | | | | | [facility] Age 66 year(s) | | | Interpreting YAMEL DYKES, | | | Machine Printer Gender | | | Male Nurse Procedure [...] Index: 31 mL/m^2 | | | EF Hhjtcqlum45% Left Ventricle Diastolic Dimension: 5.5 cm | [...] | LA Vol/BSA Index: 31 mL/m^2 EF Sufhmxjjr31% | | | | | | Left [...] Valeriy Results In - 10/27/2016 7:09 AM [facility] Transthoracic Echocardiography Report | | (TTE) Demographics Patient Name DANIEL Leon Room Number JR. | | Patient [id number] Date of Study 10/26/2016 Number Visit Number | | [id number] Referring Physician NIKHIL MARCH | | Number C Date of 1950 | | S[employer] Et[employer] Developer VALENTIN OLIVEROS, | | [facility] Age 66 year(s) Interpreting YAMEL DYKES, | | Machine Printer Gender Male | | NurseProcedureType of Study [...] ml LA Vol/BSA Index: 31 mL/m^2 EF Omkadnjwq49% Left | | Ventricle Diastolic Dimension: 5.5 [...] | LA Vol/BSA Index: 31 mL/m^2 EF Pnrjczuzn09% | | | | Left Ventricle | [...]
--- OUTSIDE RECORDS SUMMARY | ~2019-09-27 | XMS | Encounter Summary ---
Demographics + + + | Address | [address] | | | [place] [address] | + + + | Home Phone [...] [place] | | | | | [address] | | + + + + + Care Team Providers + +------+ + | Care Movie Shot Camera Operator Name | Role | Phone | [...] + + | 02/12/ | Refill | 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
--- OUTSIDE RECORDS SUMMARY | ~2019-09-27 | XMS | Encounter Summary ---
Demographics + + + | Address | [address] | | | [place] [address] | + + + | Home Phone [...] [place] | | | | | [address] | | + + + + + Care Team Providers + +------+ + | Care Skiver Machine Operator Name | Role | Phone [...] | | | | B-Cell/Folli | [address] | [address] [place] | | | | | cular | [place], | [place], [place] | | | | | Lymphoma | [place] | [address] Phone: | | | | | Procedures | [address] | [phone] | | | | | [address] | Phone: | Fax: | | | | | | [phone] | [phone] | | | | | | Fax: | | | | | | | [phone] | | +--------+--------+ + + + + Encounter Details +--------+ + + + + | Date | Type | Department | Care Team | Description | +--------+ + + + + | 01/28/ | Hospital | [facility] | Mohamud, | Diffuse large B-cell | | 2018 | Encounter | MED CTR MEDICAL | Joaquim Benson MD [address] | lymphoma of | | | | ONCOLOGY CLINIC [address] | [address] [place] | intra-abdominal | | | | [address] [place] | [place] [address] | lymph nodes (HCC) | | | | [place] [address] | [phone] | | | | | [phone] | | | +--------+ + + + [...] nt from the original. Hematology/Oncology Progress Note [facility] D[place] Pt. Name/Age/: Joaquim Sanchez Jr. 67 y.o. 1950 Med. Record Number: [id number] Date of admission: 01/28/2018 The patient's primary care provider is Kelsey Quintanilla MD. Identifying Statement: Joaquim Sanchez Jr. is a 67 y.o. male from [address] [address] with Mixed Diffuse Large B-Cell/Follicular Lymphoma in [...] CT abdomen/Pelvis with contrast 2016 ([facility]). Ex tensive periaortic lymphadenopathy (1.8 cm and 2.1 cm respectively), extensive adenopathy ex tending out along the left common iliac artery and encasing the left external iliac artery ( 4.4 cm) with compromise of the left external iliac vein. 2. Open laparotomy with LEFT ileal retroperitoneal lymph node biopsy ([facility], [facility]) June 242015. Specimen #[id number] ([facility] Pathology); Diffuse Large B-Cell [...] September 04, 2016. 10. CT Abdomen/[facility]elvis at [facility] on September 12, 2016; Positive Response [...] (PRIMA protocol). 14. Repeat CT scan at [place], [place] on December 01, [address] [...] [address]. [address] scan at [facility] on April 18, 2017 demonstrated decreased [...] [address] scan at [facility] on November 21, 2017 demonstrated decreased left [...] systems is notable for the fact that Jyoti cough has resolved without specific i ntervention. [...] after the last session", continues, unchanged since [facility] t visit. Denies dysphagia. Cardiovascular: Reports shortness [...] and foot from lymphedema continues unchanged "citlaly aishwarya has helped me, inconvenient, but leg pain [...] Rebel, RChristianH., Andie Menezes., Michael Trejo., Michael, T.E., Dara, E.T., Fatoumata, P .P.: Toxicity And [...] 2006 , Vol. 47, No. 6, pp 4072-2083. In the first article, an observational study [...] observational study, by Marques et al from [facility] th at reports neutropenia developed [...] OrderHistory Comprehensive Metabolic Panel STAT, ONE TIME, 01/28/18 at 0806, For 1 occurrence OrderHistory CBC [...] this chart may have been created with [employer] voice recognition software. Occasi onal wrong-word or [...] [place] | | | | | | [id number] | | | | | | | | +--------+---------+ + + + documented as of this encounter Visit Diagnoses + + | Diagnosis | + + | Diffuse large B-cell lymphoma of intra-abdominal lymph nodes (HCC) Other malignant | | lymphomas of intra-abdominal lymph nodes | + + documented in this encounter
--- OUTSIDE RECORDS SUMMARY | ~2019-09-27 | XMS | Encounter Summary ---
Demographics + + + | Address | [address] | | | [place] [address] | + + + | Home Phone [...] [place] | | | | | [address] | | + + + + + Care Team Providers + +------+ + | Care Forms Examiner Name | Role | Phone | [...] | | ONCOLOGY CLINIC [address] | [address] [facility] | | | | | [address] | [place] [address] | | | | | [place] [address] | [phone] | | | | | [phone] | | | +--------+ + + + [...] [place] | | | | | | [address] | | | | | | | | +--------+---------+ + + + documented as of this encounter Visit Diagnoses Not on filedocumented in this encounter"
--- OUTSIDE RECORDS SUMMARY | ~2019-09-27 | XMS | Encounter Summary ---
Demographics + + + | Address | [address] | | | [place] [address] | + + + | Home Phone [...] [place] | | | | | [address] | | + + + + + Care Team Providers + +------+ + | Care Oxyhydrogen Welder Name | Role | Phone | + [...] | | | | B-Cell/Folli | [address] | [address] | | | | | cular | [place], | [place], [place] | | | | | Lymphoma | [place] | [address] Phone: | | | | | Procedures | [address] | [phone] | | | | | [address] | Phone: | Fax: | | | | | | [phone] | [phone] | | | | | | Fax: | | | | | | | [phone] | | +--------+--------+ + + + + Encounter Details +--------+ + + + + | Date | Type | Department | Care Team | Description | +--------+ + + + + | 01/28/ | Hospital | [facility] | Mohamud, | Diffuse large B-cell | | 2018 | Encounter | MED CTR MEDICAL | Joaquim Benson MD [address] | lymphoma of | | | | ONCOLOGY CLINIC [address] | [address] [place] | intra-abdominal | | | | [address] [place] | [place] [address] | lymph nodes (HCC) | | | | [place] [address] | [phone] | | | | | [phone] | | | +--------+ + + + [...] original. Hematology/Oncology Progress Note [facility] DANIEL Blanca Pt. Name/Age/: Joaquim Sanchez Jr. 67 y.o. 1950 Med. Record Number: [id number] Date of admission: 01/28/2018 The patient's primary care provider is Kelsey Quintanilla MD. Identifying Statement: Joaquim Sanchez Jr. is a 67 y.o. male from [address] [address] with Mixed Diffuse Large B-Cell/Follicular Lymphoma in [...] lower extremity. CT abdomen/Pelvis with contrast 2016 ([facility]). Ex tensive periaortic lymphadenopathy (1.8 cm and 2.1 cm respectively), extensive adenopathy ex tending out along the left common iliac artery and encasing the left external iliac artery ( 4.4 cm) with compromise of the left external iliac vein. 2. Open laparotomy with LEFT ileal retroperitoneal lymph node biopsy ([facility], [facility]) June 242015. Specimen #[id number] ([facility] Pathology); Diffuse Large B-Cell [...] September 04, 2016. 10. CT Abdomen/Pelvis at [facility] on September 12, 2016; Positive Response [...] (PRIMA protocol). 14. Repeat CT scan at [place], [place] on December 01, [address] [...] [address]. [address] scan at [facility] on April 18, 2017 demonstrated decreased left [...] mm 16. Repeat CT scan at [facility] on November 21, 2017 demonstrated decreased [...] after the last session", continues, unchanged since [facility] t visit. Denies dysphagia. Cardiovascular: Reports shortness [...] RChristianH., Andie Menezes., Michael Trejo., Michael, T.E., Draa, E.T., Fatoumata, P .P.: Toxicity And Response [...] 2006 , Vol. 47, No. 6, pp 2262-5453. In the first article, an observational study [...] this chart may have been created with [employer] voice recognition software. Occasi onal wrong-word or [...] [place] | | | | | | [id number] | | | | | | | | +--------+---------+ + + + documented as of this encounter Visit Diagnoses + + | Diagnosis | + + | Diffuse large B-cell lymphoma of intra-abdominal lymph nodes (HCC) Other malignant | | lymphomas of intra-abdominal lymph nodes | + + documented in this encounter
--- OUTSIDE RECORDS SUMMARY | ~2019-09-27 | XMS | Encounter Summary ---
Demographics + + + | Address | [address] | | | [place] [address] | + + + | Home Phone | | + + + | Preferred Language | Unknown | + + + | Marital Status | | + + + | Holiness Affiliation | 1013 | + + + | Race | Unknown | + + + | Ethnic Group | Unknown | + + + Author + + + | Author | [facility] | | | and [place] | + + + | Organization | [facility] | | | [...] [place] | | | | | [address] | | + + + + + Care Team Providers + +------+ + | Care Brick Setter Operator Name | Role | Phone | [...] [address] [place] | | | | | [place], | [place] [address] | | | | | [place] [address] | [phone] | | | | | [phone] | | | +--------+ + + + [...] [place] | | | | | | [address] | | | | | | | | +--------+---------+ + + + documented as of this encounter Visit Diagnoses Not on filedocumented in this encounter"
--- OUTSIDE RECORDS SUMMARY | ~2019-09-27 | XMS | Encounter Summary ---
Demographics + + + | Address | [address] | | | [place] [address] | + + + | Home Phone [...] [place] | | | | | [address] | | + + + + + Care Team Providers + +------+ + | Care Pressure Tester Name | Role | Phone | [...] + + | 09/05/ | Office | [facility] | Mohamud, | Lymphedema of left | | 2016 | Visit | MED CNT ONCOLOGY | Gerber Benson MD [address] | lower extremity | | | | THERAPY [address] | [address] [place] | (Primary Dx) | | | | [address] [place], | [place] [address] | | | | | [place] [address] | [phone] | | | | | [phone] | | | | | | | [...] Portillo OT - 09/05/2016 11:16 AM PST [facility] CTR THERAPY OT OP [address] [place] [address] Occupational Therapy Daily Treatment Note Date: 09/05/2016 Patient Information Patient Name: Gerber Galindo Date of : 1950 Age: 66 y.o. History Encounter Diagnoses Code Name Primary? I89.0 Lymphedema of left lower extremity Yes Date of Onset: 2016 Referring Provider: Gerber Mallory MD Rehab Precautions Office Visit from 08/24/2016 in [facility] CTR THERAPY OT OP Rehab Precautions Precautions None Rehab Learning Style Office Visit from 08/24/2016 in [facility] CTR THERAPY OT OP Learning Style [...] [place] | | | | | | [address] | | | | | | | | +--------+---------+ + + + documented as of this encounter Visit Diagnoses + + | Diagnosis | + + | Lymphedema of left lower extremity - Primary | + + documented in this encounter"
--- OUTSIDE RECORDS SUMMARY | ~2019-09-27 | XMS | Encounter Summary ---
Demographics + + + | Address | [address] | | | [place] [address] | + + + | Home Phone | | + + + | Preferred Language | Unknown | + + + | Marital Status | | + + + | Yarsani Affiliation | 1013 | + + + | Race | Unknown | + + + | Ethnic Group | Unknown | + + + Author + + + | Author | [facility] | | | and [place] | + + + | Organization | [facility] | | [...] [place] | | | | | [address] | | + + + + + Care Team Providers + +------+ + | Care Nurse Informatics Educator Name | Role | Phone | [...] [address] | | | | | | [place], | | | | | | [place] [address] | | | | | | [phone] | | | +--------+ + + + [...] Portillo, OT - [facility] [address] [place] [address] Oncology Rehab Screening Date: 08/14/2016 Patient Information [...] | | | | | [place] | | | | | | [id number] | | | | | | | | +--------+---------+ + + + documented as of this encounter Visit Diagnoses Not on filedocumented in this encounter
--- OUTSIDE RECORDS SUMMARY | ~2019-09-27 | XMS | Encounter Summary ---
Demographics + + + | Address | [address] | | | [place] [address] | + + + | Home Phone [...] [place] | | | | | [address] | | + + + + + Care Team Providers + +------+ + | Care Statistics Tutor Name | Role | Phone | + [...] large b-cell | Gerber Benson, | [address] | | | | | lymphoma, | MD [address] | [place], | | | | | intra-abdomi | [address] | [place] [address] | | | | | nal lymph | [place], | Phone: | | | | | nodes (HCC) | [place] [address] | [phone] | | | | | Procedures | Phone: | Fax: | | | | | [place] | [phone] | [phone] | | | | | RITUXIMAB | Fax: | | | | | | INJECTION, | [phone] | | | | | | 100 [...] | | | | | | [place] IV | | | | | | | INFUSION, | | | | | | | HYDRATION, | | | | | | | EA ADD HOUR | | | | | | | [place] | | | | | | [...] | | | | | | [place] | | | | | | | FOSAPREPITAN | | | | | | | T INJECTION, | | | | | | | 1 MG [place] | | | | | | | PREDNISONE | | | | | | | IR OR DR | | | | | | | ORAL 1MG [place] | | | | | | | | | | | | | | CYCLOPHOSPHA | | | | | | | MIDE 100 MG | | | | | | | INJ [place] | | | | | | | DOXORUBICIN | | | | | | | HCL | | | | | | | INJECTION, | | | | | | | 10 MG [place] | | | | | | | VINCRISTINE | | | | | | | SULFATE 1 MG | | | | | | | INJ [place] | | | | | | [...] | | | | | | [place] | | | | | | | INJECTION, | | | | | | | PEGFILGRASTI | | | | | | | M 6MG [place] | | | | | | [...] + + + + | 09/05/ | [facility] | [facility] | Mohamud, | Diffuse large B-cell | | 2016 | Encounter | MED CTR CHEMO | Gerber Benson MD [address] | lymphoma of | | | | INFUSION [address] | [address] [place] | intra-abdominal | | | | [place], | [place] [address] | lymph nodes (HCC) | | | | [place] [address] | [phone] | | | | | [phone] | | | +--------+ + + + [...] | | | | | [place] | | | | | | [address] | | | | | | | [...] + | [facility] | [address] | [place] | [phone] | | [facility] | | [address] | | | - LABORATORY | | [...] mL/min/1.73m2 | Christian YUE | | | YEMENI | RATE,ESTIMATED | | MEDICAL | | | | mL/min/1.73l1Bwve than | | CENTER - | | [...] | 9.5 | 8.3 - 10.5 | [facility] | | | | | mg/dL [...] [address] | [place] | [phone] | | [facility] | | [address] | | | - LABORATORY | | [...] + | [facility] | [address] | [place] | [phone] | | [facility] | | [address] | | | - LABORATORY | | [...] ST. | [address] | [place] | [phone] | | [facility] | | [address] | | | - LABORATORY | | [...] ST. | [address] | [place] | [phone] | | [facility] | | [address] | | | - LABORATORY | | [...]
--- OUTSIDE RECORDS SUMMARY | ~2019-09-27 | XMS | Encounter Summary ---
Demographics + + + | Address | [address] | | | [place] [address] | + + + | Home Phone [...] [place] | | | | | [address] | | + + + + + Care Team Providers + +------+ + | Care Pattern Filer Name | Role | Phone | + +------+ + | Earle Chacko MD | PCP | | + +------+ + Encounter Details +--------+ + + + + | Date | Type | Department | Care Team | Description | +--------+ + + + + | 05/20/ | Hospital | [facility] | Mohamud, | Diffuse large B-cell | | 2018 | Encounter | MED CTR MEDICAL | Joaquim Benson MD [address] | lymphoma of | | | | ONCOLOGY CLINIC [address] | [address] [place] | intra-abdominal | | | | [address] [place] | [place] [address] | lymph nodes (HCC) | | | | [place] [address] | [phone] | | | | | [phone] | | | +--------+ + + + [...] from the original. Hematology/Oncology Progress Note [facility] [place] Pt. Name/Age/: Joaquim Sanchez Jr. 67 y.o. [address] [facility]. Record Number: [id number] Date of admission: 05/20/2018 The patient's primary care provider is Kelsey Quintanilla MD. Identifying Statement: Joaquim Sanchez Jr. is a 67 y.o. male from [address] [address] with Mixed Diffuse Large B-Cell/Follicular Lymphoma in [...] node biopsy ([facility]) June 242015. Specimen #[id number] ([facility] Pathology); Diffuse Large B-Cell lymph [...] September 04, 2016. 10. CT Abdomen/Pelvis at [facility] on September 12, 2016; Positive Response [...] (PRIMA protocol). 14. Repeat CT scan at [place], [place] on December 01, [address] [...] [address]. [address] scan at [facility] on April 18, 2017 demonstrated decreased [...] [address] scan at [facility] on November 21, 2017 demonstrated [...] exam is negative for any signs of xkdnhut-gnwwd-chzgsknwyxm. Assessment; composite mixed diffuse large B-cell/follicular B-cell [...] 2006 , Vol. 47, No. 6, pp 6650-3982. In the first article, an observational study [...] this chart may have been created with [employer] voice recognition software. Occasi onal wrong-word or [...] | | | | | [place] | | | | | | [address] | | | | | | | | +--------+---------+ + + + documented as of this encounter Visit Diagnoses + + | Diagnosis | + + | Diffuse large B-cell lymphoma of intra-abdominal lymph nodes (HCC) Other malignant | | lymphomas of intra-abdominal lymph nodes | + + documented in this encounter
--- OUTSIDE RECORDS SUMMARY | ~2019-09-27 | XMS | Encounter Summary ---
Demographics + + + | Address | [address] | | | [place] [address] | + + + | Home Phone | | + + + | Preferred Language | Unknown | + + + | Marital Status | | + + + | Episcopal Affiliation | 1013 | + + + | Race | Unknown | + + + | Ethnic Group | Unknown | + + + Author + + + | Author | [facility] | | | and [place] | + + + | Organization | [facility] | | [...] [place] | | | | | [address] | | + + + + + Care Team Providers + +------+ + | Care Balcony Worker Name | Role | Phone | [...] | | | | | | [place] [address] | | | | | | [phone] | | | +--------+ + + + [...] [place] | | | | | | [address] | | | | | | | | +--------+---------+ + + + documented as of this encounter Visit Diagnoses Not on filedocumented in this encounter"
--- OUTSIDE RECORDS SUMMARY | ~2019-09-27 | XMS | Encounter Summary ---
Demographics + + + | Address | [address] | | | [place] [address] | + + + | Home Phone [...] [place] | | | | | [address] | | + + + + + Care Team Providers + +------+ + | Care Sorting Grapple Operator Name | Role | Phone | [...] | | ONCOLOGY CLINIC [address] [facility] | | | | | [address] | [place] [address] | | | | | [place] [address] | [phone] | | | | | [phone] | | | +--------+ + + + [...] [place] | | | | | | [address] | | | | | | | | +--------+---------+ + + + documented as of this encounter Visit Diagnoses Not on filedocumented in this encounter"
--- OUTSIDE RECORDS SUMMARY | ~2019-09-27 | XMS | Encounter Summary ---
Demographics + + + | Address | [address] | | | [place] [address] | + + + | Home Phone | | + + + | Preferred Language | Unknown | + + + | Marital Status | | + + + | Voodoo Affiliation | 1013 | + + + | Race | Unknown | + + + | Ethnic Group | Unknown | + + + Author + + + | Author | [facility] | | | and [place] | + + + | Organization | [facility] | | [...] [place] | | | | | [address] | | + + + + + Care Team Providers + +------+ + | Care Residential Solar Sales Consultant Name | Role | Phone | [...] + + | 08/14/ | Hospital | [facility] | Mohamud, | Diffuse large B-cell | | 2016 | Encounter | MED CTR NUTRITION | Gerber Benson MD [address] | lymphoma of | | | | SERVICES [address] [place] | intra-abdominal | | | | [place], | [place] [address] | lymph nodes (HCC) | | | | [place] [address] | [phone] | (Primary Dx) | | | | [phone] | | | | | | | [...] with Gerber's today during his chemotherapy treatment. 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
--- OUTSIDE RECORDS SUMMARY | ~2019-09-27 | XMS | Encounter Summary ---
Demographics + + + | Address | [address] | | | [place] [address] | + + + | Home Phone [...] [place] | | | | | [address] | | + + + + + Care Team Providers + +------+ + | Care Locks Inspector Name | Role | Phone | [...] large b-cell | Gerber Benson, | [address] [place] | | | | | lymphoma, | MD [address] | [place], | | | | | intra-abdomi | [address] | [place] [address] | | | | | nal lymph | [place], | Phone: | | | | | nodes (HCC) | [place] [address] | [phone] | | | | | Procedures | Phone: | Fax: | | | | | [place] | [phone] | [phone] | | | | | RITUXIMAB | Fax: | | | | | | INJECTION, | [phone] | | | | | | 100 [...] | | | | | | ND IV | | | | | | | INFUSION, | | | | | | | HYDRATION, | | | | | | | EA ADD HOUR | | | | | | | ND | | | | | | [...] | | | | | | ND | | | | | | | FOSAPREPITAN | | | | | | | T INJECTION, | | | | | | | 1 MG ND | | | | | | | PREDNISONE | | | | | | | IR OR DR | | | | | | | ORAL 1MG ND | | | | | | | | | | | | | | CYCLOPHOSPHA | | | | | | | MIDE 100 MG | | | | | | | INJ ND | | | | | | | DOXORUBICIN | | | | | | | HCL | | | | | | | INJECTION, | | | | | | | 10 MG ND | | | | | | | VINCRISTINE | | | | | | | SULFATE 1 MG | | | | | | | INJ ND | | | | | | [...] | | | | | | ND | | | | | | | INJECTION, | | | | | | | PEGFILGRASTI | | | | | | | M 6MG ND | | | | | | [...] + + + + | 08/14/ | [facility] | [facility] | Mohamud, | Diffuse large B-cell | | 2016 | Encounter | MED CTR CHEMO | Gerber Benson MD [address] | lymphoma of | | | | INFUSION [address] | [address] [place] | intra-abdominal | | | | [place], | [place] [address] | lymph nodes (HCC) | | | | [place] [address] | [phone] | | | | | [phone] | | | +--------+ + + + [...] [place] | | | | | | [address] | | | | | | | [...] [place] | | | | | | [address] | | | | + + + [...] [address] | [place] [address] | [phone] | + + + + + CBC [...] + | [facility] | [address] | [place] | [phone] | | [facility] | | [address] | | | - LABORATORY | | [...] | mL/min/1.73m2 | YUE | | | MALAWIAN | RATE,ESTIMATED | | MEDICAL | | | | mL/min/1.83i4Thcq than | | CENTER - | | [...] [address] | [place] | [phone] | | [facility] | | [address] | | | - LABORATORY | | [...] [facility] | | | | | | SThCristian T[facility]NER | | | | | | [...] ST. | [address] | [place] | [phone] | | [facility] | | [address] | | | - LABORATORY | | [...] [address] | [place] | [phone] | | [facility] | | [address] | | | - LABORATORY | | [...]
--- OUTSIDE RECORDS SUMMARY | ~2019-09-27 | XMS | Encounter Summary ---
Demographics + + + | Address | [address] | | | [place] [address] | + + + | Home Phone | | + + + | Preferred Language | Unknown | + + + | Marital Status | | + + + | Nondenominational Affiliation | 1013 | + + + | Race | Unknown | + + + | Ethnic Group | Unknown | + + + Author + + + | Author | [facility] | | | and [place] | + + + | Organization | [facility] | | | [...] [place] | | | | | [address] | | + + + + + Care Team Providers + +------+ + | Care Vessel Scrapper Name | Role | Phone | + [...] | | | nal lymph | [place] [address] | [address] | | | | | nodes (HCC) | Phone: | Phone: | | | | | Procedures | [phone] | [phone] | | | | | CT Abdomen | Fax: | Fax: | | | | | Pelvis w | [phone] | [phone] | | | | | Contrast | [...] + + | 09/05/ | Hospital | [facility] | Mohamud, | Diffuse large B-cell | | 2016 | Encounter | MED CTR MEDICAL | Joaquim Benson MD [address] | lymphoma of | | | | ONCOLOGY CLINIC [address] | [address] [place] | intra-abdominal | | | | [address] [place] | [place] [address] | lymph nodes (HCC) | | | | [place] [address] | [phone] | (Primary Dx) | | | | [phone] | | | +--------+ + + + [...] nt from the original. Hematology/Oncology Progress Note [facility] [place] Pt. Name/Age/: Joaquim Sanchez 66 y.o. 1950 Med. Record Number: [id number] Date of admission: 09/05/2016 Identifying Statement: Joaquim Sanchez is a 66 y.o. male from [address] [address] with Diffuse Large B-Cell Lymphoma. The patient [...] lower extremity. CT abdomen/Pelvis with contrast 2016 ([facility]). Ex tensive periaortic lymphadenopathy (1.8 cm and 2.1 cm respectively), extensive adenopathy ex tending out along the left common iliac artery and encasing the left external iliac artery ( 4.4 cm) with compromise of the left external iliac vein. 2. Open laparotomy with LEFT ileal retroperitoneal lymph node biopsy ([place]raveen, [facility]) June 242015. [id number] [facility] Diffuse Large B-Cell lymph [...] growth fact or support with Neulasta at [facility] in [facility] tomorrow. He'll be mayra eduled for a CT scan of the chest/abdomen/pelvis at [facility] in [facility] to assess response. Return to [facility] in about 10 days for [...] THE PREDNISONE Schedule CT of Abdomen/Pelvis at [facility] in about a week. . arrange marco [...] this chart may have been created with [employer] voice recognition software. Occasi onal wrong-word or [...] [place] | | | | | | [address] | | | | | | | [...]
--- OUTSIDE RECORDS SUMMARY | ~2019-09-27 | XMS | Encounter Summary ---
Demographics + + + | Address | [address] | | | [place] [address] | + + + | Home Phone [...] [place] | | | | | [address] | | + + + + + Care Team Providers + +------+ + | Care Regional Coordinator Name | Role | Phone | [...] large b-cell | Gerber Benson, | [address] [place] | | | | | lymphoma, | MD [address] | [place], | | | | | intra-abdomi | [address] | [place] [address] | | | | | nal lymph | [place], | Phone: | | | | | nodes (HCC) | [place] [address] | [phone] | | | | | Procedures | Phone: | Fax: | | | | | [place] | [phone] | [phone] | | | | | RITUXIMAB | Fax: | | | | | | INJECTION, | [phone] | | | | | | 100 MG [place] | | | | | | | MEPERIDINE | | | | | | | HYDROCHL | | | | | | | /100 MG [place] | | | | | | | IV INFUSION, | | | | | | | HYDRATION, | | | | | | | 31-60 MIN | | | | | | | [place] IV | | | | | | | INFUSION, | | | | | | | HYDRATION, | | | | | | | EA ADD HOUR | | | | | | | [place] | | | | | | | ONDANSETRON | | | | | | | HCL | | | | | | | INJECTION, 1 | | | | | | | MG [place] | | | | | | | DEXAMETHASON | | | | | | | E SODIUM | | | | | | | PHOS, 1 MG | | | | | | | [place] | | | | | | | FOSAPREPITAN | | | | | | | T INJECTION, | | | | | | | 1 MG [place] | | | | | | | PREDNISONE | | | | | | | IR OR DR | | | | | | | ORAL 1MG [place] | | | | | | | | | | | | | | CYCLOPHOSPHA | | | | | | | MIDE 100 MG | | | | | | | INJ [place] | | | | | | | DOXORUBICIN | | | | | | | HCL | | | | | | | INJECTION, | | | | | | | 10 MG [place] | | | | | | | VINCRISTINE | | | | | | | SULFATE 1 MG | | | | | | | INJ [place] | | | | | | | DIPHENHYDRAM | | | | | | | INE HCL | | | | | | | INJECTIO, 50 | | | | | | | MG [place] | | | | | | | METHYLPREDNI | | | | | | | SOLONE | | | | | | | INJECTION, | | | | | | | 125 MG [place] | | | | | | | DEXAMETHASON | | | | | | | E SODIUM | | | | | | | PHOS, 1 MG | | | | | | | [place] | | | | | | | INJECTION, | | | | | | | PEGFILGRASTI | | | | | | | M 6MG [place] | | | | | | | NORMAL | | | | | | | SALINE | | | | | | | SOLUTION | | | | | | | INFUS, 500 | | | | | | | ML [place] | | | | | | | NORMAL | | | | | | | SALINE | | | | | | | SOLUTION | | | | | | | INFUS, 250 | | | | | | | ML [place] | | | | | | | STERILE | | | | | | | WATER/SALINE | | | | | | | , 10 ML [place] | | | | | | | CHEMOTHER, | | | | | | | IV PUSH,EA | | | | | | | ADD DRUG [place] | | | | | | | CHEMOTHER, | | | | | | | IV INFUSION, | | | | | | | 1 HR [place] | | | | | | | CHEMOTHER, | | | | | | | IV INFUSION, | | | | | | | EA HR [place] | | | | | | | CHEMOTHER,NO | | | | | | | N-HORMONE | | | | | | | ANTI-NEOPL, | | | | | | | SUB-Q/IM [place] | | | | | | | [...] + + + + | 10/17/ | [facility] | [facility] | Mohamud, | Diffuse large B-cell | | 2017 | Encounter | MED CTR CHEMO | Gerber Benson MD [address] | lymphoma of | | | | INFUSION [address] | [address] [place] | intra-abdominal | | | | [place], | [place] [address] | lymph nodes (HCC) | | | | [place] [address] | [phone] | (Primary Dx) | | | | [phone] | | | +--------+ + + + [...] | 30 | 3 | 07/25/20 | 01/16/201 | | (ZOFRAN) 8 MG | mouth [...] + documented as of this encounter Progress Areli Solomon RN - 10/17/2016 3:22 PM PSTDischarged to home in satisfactory condition , ambulatory, with . Areli Shabazz RN Patricia Wise RN - 10/17/2016 1:16 PM PSTRios is complaining of heart burn and indigestion. [...] [place] | | | | | | [address] | | | | | | | [...] [address] | [place] | [phone] | | [facility] | | [address] | | | - LABORATORY | | [...] mL/min/1.73m2 | [facility] | | | MONEGASQUE | RATE,ESTIMATED | | MEDICAL | | | | mL/min/1.28i4Wlnk than | | CENTER - | | [...] + | [facility] | [address] | [place] | [phone] | | [facility] | | [address] | | | - LABORATORY | | | | + + + + + Lactate Dehydrogenase (10/17/2016 8:14 AM PST) + +-------+ + + + | Component | Value | Ref Range | Performed | Pathologist | | | | | At | Signature | + +-------+ + + + | LDH TOTAL | 155 | 91 - 180 U/L | [facility] [...] ST. | [address] | [place], [place] | [phone] | | [facility] | | [address] | | | - LABORATORY | | [...]
--- OUTSIDE RECORDS SUMMARY | ~2019-09-27 | XMS | Encounter Summary ---
Demographics + + + | Address | [address] | | | [place] [address] | + + + | Home Phone | | + + + | Preferred Language | Unknown | + + + | Marital Status | | + + + | Jainism Affiliation | 1013 | + + + | Race | Unknown | + + + | Ethnic Group | Unknown | + + + Author + + + | Author | [facility] | | | and [place] | + + + | Organization | [facility] | | | [...] [place] | | | | | [address] | | + + + + + Care Team Providers + +------+ + | Care Lighting Equipment Operator Name | Role | Phone | [...] large b-cell | Gerber Benson, | [address] [place] | | | | | lymphoma, | MD [address] | [place], | | | | | intra-abdomi | [address] | [place] [address] | | | | | nal lymph | [place], | Phone: | | | | | nodes (HCC) | [place] [address] | [phone] | | | | | Procedures | Phone: | Fax: | | | | | [place] | [phone] | [phone] | | | | | RITUXIMAB | Fax: | | | | | | INJECTION, | [phone] | | | | | | 100 MG [place] | | | | | | | MEPERIDINE | | | | | | | HYDROCHL | | | | | | | /100 MG [place] | | | | | | | IV INFUSION, | | | | | | | HYDRATION, | | | | | | | 31-60 MIN | | | | | | | [place] IV | | | | | | | INFUSION, | | | | | | | HYDRATION, | | | | | | | EA ADD HOUR | | | | | | | [place] | | | | | | | ONDANSETRON | | | | | | | HCL | | | | | | | INJECTION, 1 | | | | | | | MG HI | | | | | | | DEXAMETHASON | | | | | | | E SODIUM | | | | | | | PHOS, 1 MG | | | | | | | HI | | | | | | | FOSAPREPITAN | | | | | | | T INJECTION, | | | | | | | 1 MG HI | | | | | | | PREDNISONE | | | | | | | IR OR DR | | | | | | | ORAL 1MG HI | | | | | | | | | | | | | | CYCLOPHOSPHA | | | | | | | MIDE 100 MG | | | | | | | INJ HI | | | | | | | DOXORUBICIN | | | | | | | HCL | | | | | | | INJECTION, | | | | | | | 10 MG HI | | | | | | | VINCRISTINE | | | | | | | SULFATE 1 MG | | | | | | | INJ HI | | | | | | | DIPHENHYDRAM | | | | | | | INE HCL | | | | | | | INJECTIO, 50 | | | | | | | MG HI | | | | | | | METHYLPREDNI | | | | | | | SOLONE | | | | | | | INJECTION, | | | | | | | 125 MG HI | | | | | | | DEXAMETHASON | | | | | | | E SODIUM | | | | | | | PHOS, 1 MG | | | | | | | HI | | | | | | | INJECTION, | | | | | | | PEGFILGRASTI | | | | | | | M 6MG HI | | | | | | | NORMAL | | | | | | | SALINE | | | | | | | SOLUTION | | | | | | | INFUS, 500 | | | | | | | ML HI | | | | | | | NORMAL | | | | | | | SALINE | | | | | | | SOLUTION | | | | | | | INFUS, 250 | | | | | | | ML HI | | | | | | | STERILE | | | | | | | WATER/SALINE | | | | | | | , 10 ML HI | | | | | | | CHEMOTHER, | | | | | | | IV PUSH,EA | | | | | | | ADD DRUG HI | | | | | | | CHEMOTHER, | | | | | | | IV INFUSION, | | | | | | | 1 HR HI | | | | | | | CHEMOTHER, | | | | | | | IV INFUSION, | | | | | | | EA HR HI | | | | | | | CHEMOTHER,NO | | | | | | | N-HORMONE | | | | | | | ANTI-NEOPL, | | | | | | | SUB-Q/IM [place] | | | | | | | [...] + + + + | 10/17/ | [facility] | [facility] | Mohamud, | Diffuse large B-cell | | 2017 | Encounter | MED CTR CHEMO | Gerber Benson MD [address] | lymphoma of | | | | INFUSION [address] | [address] [place] | intra-abdominal | | | | [place], | [place] [address] | lymph nodes (HCC) | | | | [place] [address] | [phone] | (Primary Dx) | | | | [phone] | | | +--------+ + + + [...] [place] | | | | | | [address] | | | | | | | [...] [address] | [place] | [phone] | | [facility] | | [address] | | | - LABORATORY | | [...] | | MEDICAL | | | | mL/min/1.31b4Johb than | | CENTER - | | [...] | [facility] | [address] | [place] | [phone] | | [facility] | | [address] | | | - LABORATORY | | [...] ST. | [address] | [place], [place] | [phone] | | [facility] | | [address] | | | - LABORATORY | | [...]
--- OUTSIDE RECORDS SUMMARY | ~2019-09-27 | XMS | Encounter Summary ---
Demographics + + + | Address | [address] | | | [place] [address] | + + + | Home Phone [...] + + | Author | [facility] | | | and [place] | + + + | Organization | [facility] | | | [...] [place] | | | | | [address] | | + + + + + Care Team Providers + +------+ + | Care Plumber Assistant Name | Role | Phone | [...] large b-cell | Gerber Benson, | [address] [place] | | | | | lymphoma, | MD [address] | [place], | | | | | intra-abdomi | [address] | [place] [address] | | | | | nal lymph | [place], | Phone: | | | | | nodes (HCC) | [place] [address] | [phone] | | | | | Procedures | Phone: | Fax: | | | | | [place] | [phone] | [phone] | | | | | RITUXIMAB | Fax: | | | | | | INJECTION, | [phone] | | | | | | 100 [...] + + + + | 02/26/ | [facility] | [facility] | Mohamud, | Diffuse large B-cell | | 2017 | Encounter | MED CTR CHEMO | Gerber Benson MD [address] | lymphoma of | | | | INFUSION [address] | [address] [place] | intra-abdominal | | | | [place], | [place] [address] | lymph nodes (HCC); | | | | [place] [address] | [phone] | Lymphedema of left | | | | [phone] | | lower extremity | +--------+ + [...] [place] | | | | | | [address] | | | | | | | [...] + | [facility] | [address] | [place] | [phone] | | [facility] | | [address] | | | - LABORATORY | | [...] | | | FILTRATION | mL/min/1.73m2 | [facility] | | | KYRGYZ | RATE,ESTIMATED | | MEDICAL | | | | mL/min/1.28a9Fhah than | | CENTER - | | [...] | appended report. These | | [facility] | | | | results have been [...] + | [facility] | [address] | [place] | [phone] | | [facility] | | [address] | | | - LABORATORY | | [...] ST. | [address] | [place], [place] | [phone] | | [facility] | | [address] | | | - LABORATORY | | [...]
--- OUTSIDE RECORDS SUMMARY | ~2019-09-27 | XMS | Encounter Summary ---
Demographics + + + | Address | [address] | | | [place] [address] | + + + | Home Phone | | + + + | Preferred Language | Unknown | + + + | Marital Status | | + + + | Amish Affiliation | 1013 | + + + [...] [place] | | | | | [address] | | + + + + + Care Team Providers + +------+ + | Care Orthopedically Impaired Teacher Name | Role | Phone | + [...] + + | 08/14/ | Hospital | [facility] | Mohamud, | Diffuse large B-cell | | 2016 | Encounter | MED CTR NUTRITION | Gerber Benson MD [address] | lymphoma of | | | | SERVICES [address] | [address] [place] | intra-abdominal | | | | [place], | [place] [address] | lymph nodes (HCC) | | | | [place] [address] | [phone] | (Primary Dx) | | | | [phone] | | | | | | | [...] [place] | | | | | | [address] | | | | | | | | +--------+---------+ + + + documented as of this encounter Visit Diagnoses + + | Diagnosis | + + | 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
--- OUTSIDE RECORDS SUMMARY | ~2019-09-27 | XMS | Encounter Summary ---
Demographics + + + | Address | [address] | | | [place] [address] | + + + | Home Phone [...] [place] | | | | | [address] | | + + + + + Care Team Providers + +------+ + | Care Arbor End Mainspring Former Name | Role | Phone | + [...] + + | 02/12/ | Refill | [facility] | Mohamud, | Medication Refill | | 2017 | | MED [facility] | Gerber Benson MD [address] | | | | | ONCOLOGY CLINIC [address] | [address] [place] | | | | | [place] | [place] [address] | | | | | [place] [address] | [phone] | | | | | [phone] | | | +--------+--------+ + + + [...] [place] | | | | | | [address] | | | | | | | | +--------+---------+ + + + documented as of this encounter Visit Diagnoses + + | Diagnosis | + + | 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
--- OUTSIDE RECORDS SUMMARY | ~2019-09-27 | XMS | Encounter Summary ---
Demographics + + + | Address | [address] | | | [place] [address] | + + + | Home Phone [...] [place] | | | | | [address] | | + + + + + Care Team Providers + +------+ + | Care Blood Splatter Analyst Name | Role | Phone | + [...] lower | MD [address] | [address] | | | | | extremity | [address] | [place], | | | | | | [place], | [place] [address] | | | | | | [place] [address] | Phone: | | | | | | Phone: | [phone] | | | | | | [phone] | Fax: | | | | | | Fax: | [phone] | | | | | | [phone] | | +--------+ + + + + + Encounter Details +--------+---------+ + + + | Date | Type | Department | Care Team | Description | +--------+---------+ + + + | 08/24/ | [facility] | Mohamud, | Lymphedema of left | | 2016 | Visit | MED CNT ONCOLOGY | Gerber Benson MD [address] | lower extremity | | | | THERAPY [address] | [address] [place] | (Primary Dx) | | | | [place], | [place] [address] | | | | | [place] [address] | [phone] | | | | | [phone] | | | | | | | [...] of an appropriate compression garm ents for [facility] management of edema. Treatment Plan/Interventions 95393 - OT [id number] - Therapeutic Fmvtkmoc43827 - Therapeutic [id number] - Manu al Therapy Patient and/or family has indicated understanding of treatment needs and actively participa ian in the creation of this plan for care. Electronically signed by: Olivia Portillo OT, 08/25/2016 9:16 Patient Name: Gerber Galindo/: 1950/ Evelyn Vela OT - 08/25/2016 8:39 AM PSTFormatting of this note might be different from the [facility] THERAPY OT OP [address] [facility] [address] Occupational Therapy Initial Assessment Date: 08/24/2016 Patient [...] Rehab Precautions Office Visit from 08/24/2016 in [facility] THERAPY OT OP Rehab Precautions [...] of an appropriate compression garm ents for terminal system operator management of edema. Plan Date of Onset: 2016 Start of Care Date: 08/24/2016 Requested # of Visits: 8 visits 1x/week for 8 weeks Certification From: 08/24/2016 Certification To: 10/24/2016 Treatment Plan/Interventions 52117 - OT [id number] - Therapeutic Aojzwsab00123 - Therapeutic Bpwznhirok02962 - Manu al Therapy Patient and/or family [...] | | | | | [place] | | | | | | [address] | | | | | | | [...]
--- OUTSIDE RECORDS SUMMARY | ~2019-09-27 | XMS | Encounter Summary ---
Demographics + + + | Address | [address] | | | [place] [address] | + + + | Home Phone [...] [place] | | | | | [address] | | + + + + + Care Team Providers + +------+ + | Care Clinic Clerk Name | Role | Phone | [...] + + | 07/25/ | Documentati | [facility] | Parrish Traore, | Psychosocial Support | | 2015 | on | MED CTR MEDICAL | BUSINESS SERVICES COORDINATOR | | | | | ONCOLOGY CLINIC [address] | | | | | | [address] | | | | | | [place] [address] | | | | | | [phone] | | | +--------+ + + + [...] Parrish Traore MSW - 07/26/2016 1:24 PM [facility] met with patient, Gerber cason (Rocky), to introduce self and administer NCCN Distress Screening Tool. Rios is being treated for lymphoma. He lives in [place] with his , Mara. 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 Rios is alert and oriented [...] good coping skills and strong nicolasa. This Board [employer] Secretary allowed for expression of feeling and provided supportive counseling and information regarding the emotional aspects of a cancer diagnosis and treatment. Encourage [place] to attend community support group and offered literature on patient s diagnosis. Provided an ACS booklet on Chemotherapy. This Board [employer] Secretary and Case Management Manager are available to provide emotional support an [...] | | | | | [place] | | | | | | [address] | | | | | | | | +--------+---------+ + + + documented as of this encounter Visit Diagnoses Not on filedocumented in this encounter"
--- OUTSIDE RECORDS SUMMARY | ~2019-09-27 | XMS | Encounter Summary ---
Demographics + + + | Address | [address] | | | [place] [address] | + + + | Home Phone [...] [place] | | | | | [address] | | + + + + + Care Team Providers + +------+ + | Care Electrifier Operator Name | Role | Phone | [...] | +--------+ + + + + | 10/05/ | Hospital | [facility] | Mohamud, | Diffuse large B-cell | | 2017 | Encounter | [facility] | Gerber Benson MD [address] | lymphoma of | | | | [facility]Y CLINIC [address] [place] | intra-abdominal | | | | [address] [place] | [place] [address] | lymph nodes (HCC) | | | | [place] [address] | [phone] | (Primary Dx); | | | | [phone] | | Lymphedema of left | | | | | Yang Townsend MD | lower extremity; | | | | | [address] | Antineoplastic | | | | | [address] [place] [facility], | chemotherapy induced | | | | | [place] [address] | pancytopenia (HCC) | | | | | [phone] | | | | | | | [...] + + + | Blood Pressure | 108/65 | 10/05/2016 9:55 AM | | | | | PST | | + + + + + | Pulse | 64 | 10/05/2016 9:55 AM | | | | | PST | | + + + + + | Temperature | 36.8 C (98.2 F) | 10/05/2016 9:55 AM | | | | | PST | | + + + + + | Respiratory Rate | 16 | 10/05/2016 9:55 AM | | | | | PST | | + + + + + | Oxygen Saturation | 96% | 10/05/2016 9:55 AM | | | | | PST | | + + + + + | Inhaled Oxygen | - | - | | | Concentration | | | | + + + + + | Weight | 138 kg (304 lb 3.2 | 10/05/2016 9:55 AM | | | | oz) | PST | | + + + + + | Height | - | - | | + + + + + | Body Mass Index | 39.06 | 07/18/2016 4:16 PM | | | [...] documented as of this encounter Progress Notes Yang Townsend MD - 10/05/2016 9:37 AM PSTFormatting of this note might be different f rom the original. Hematology-Oncology Progress Note [facility] Pt. Name/Age/: Gerber Galindo 66 y.o. 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 Assessment and plan: Patient is having some cumulative fatigue related to his chemotherapy, also chemotherapy as sociated pancytopenia but not worse. 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 1. No new intervention needed. 2. Back on October 17 for his to cycle of chemotherapy as planned. Continue to withhold vi ncristine. Subjective: The patient chart and medications were reviewed in detail and the patient was seen and exam ined. Gerber Galindo is a 66 y.o. male with lymphoma here for Jose Luis check. Patient states that this past cycle was the breakfast, or fatigue, nausea without vomiting. No fever, no mouth sores. Having some discomfort in his left groin with his known lymphom a. Leg swelling unchanged. No new rash, no shortness of breath or cough, no bleeding. Is passing lots of gas however, very odiferous. PMH: Past Medical History Diagnosis Date Chronic [...] Heart attack Father Review of Systems: Constitutional: Reports energy level is low. Reports nausea, but no vomiting. Denies fatigu e. Denies high fevers, shaking chills, anorexia, weight loss, or night sweats. Appetite wit hout changes. Ear, Nose, Mouth, Throat: Reports he had a sore in his mouth during his last cycle, this wal[place] s healed. Reports intermittent tinnitus. Denies dysphagia. Cardiovascular: Denies shortness of breath, dyspnea on exertion, chest pain, palpitations o r orthopnea. Respiratory: Reports intermittent cough with small white to clear sputum production. Denies hemoptysis. Gastrointestinal: Reports constipation 2-3 days post steroid use, this causes abdominal nicolás n, then has diarrhea for a few days after. Denies melena, or bright red blood per rectum. Genitourinary: Denies hematuria or dysuria. Musculoskeletal: Reports occasional joint pain in knees and shoulders, unchanged. Neurologic: Reports blurry or "fuzzy" vision with each cycle of chemo, returns to normal. R eports neuropathy in fingers and toes. Denies headache. Endocrine: Left leg edema continues, unchanged. Uses compression stocking. Hematologic: Denies spontaneous bruising or bleeding. Integumentary: Reports dry skin. Denies rash, wounds or other skin concerns. Pain: 3/10 Left groin pain for last few days. Note: Here for follow up with Dr. Townsend (Dr. Mohamud valdes) and labs. My chart: Active. Medications: Current Outpatient Prescriptions Medication Sig aspirin 81 mg EC tablet Take 162 mg by mouth Daily. carvedilol (COREG) 25 mg tablet Take 25 mg by mouth 2 times daily (with breakfast & din ner). cetirizine (ZYRTEC) 10 mg tablet Take 10 mg by mouth Daily. clotrimazole-betamethasone (LOTRISONE) cream Apply topically Daily as needed. gabapentin (NEURONTIN) 100 mg capsule Take by mouth Daily. 100 mg po twice daily, 300 mg po once daily. gabapentin (NEURONTIN) 300 mg capsule Take 300 mg by mouth Daily. GINSENG PO Take 2 tablets by mouth. Takes it for one week the week after chemo levothyroxine (SYNTHROID, LEVOTHROID) 50 mcg tablet LORazepam (ATIVAN) 1 mg tablet Take 1 tablet by mouth every 6 hours as needed (Nausea/V omiting). omeprazole (PRILOSEC) 20 mg capsule Take 20 mg by mouth 2 times daily. ondansetron (ZOFRAN) 8 MG tablet Take 1 tablet by mouth 2 times daily. For two days aft er each chemo and then may take one tab every 8 hours if needed for nausea predniSONE (DELTASONE) 20 mg tablet 5 pills for 5 days after chemo. Sennosides (MP SENALAX PO) Take 2 capsules by mouth Daily. traMADol (ULTRAM) 50 mg tablet Take 50 mg by mouth every 6 hours as needed. VITAMIN E COMPLEX PO Take by mouth. XARELTO 10 MG tablet Take 1 tablet by mouth Daily. No current facility-administered medications for this encounter. Allergies: Allergies Allergen Reactions Codeine "wires him up" Vitals: Temp: 36.8 C (98.2 F) BP: 108/65 mmHg Pulse: 64 Resp: 16 SpO2: 96 % on Temp :Temp Av.8 C (98.2 F) Min: 36.8 C (98.2 F) Max: 36.8 C (98.2 F) No intake or output data in the 24 hours ending 10/05/16 1012 Wt. Current: Weight: (!) 137.984 kg (304 lb 3.2 oz) Physical Exam: Exam: ECOG Performance Status: 1 General: The patient is alert and oriented. No acute distress. Here with his . HEENT: PERRL, . Non-icteric. Abdomen: Soft, nontender, no hepatospenomegaly. No palpable masses. Bowel sounds present. Skin: No rashes, bruising, or petechiae. Neurological: No focal lateralizing deficits noted. Speech fluent. Psychiatric: Normal mood and affect. Appropriate. Diagnostic studies: Available data and images were reviewed personally. See reports. Significant results and findings are addressed here or in the Assessment and Plan. Recent Labs Lab 10/05/16912 WBC 1.2* HGB 10.0* HCT 29.4* PLT 76* Recent Labs Lab 10/05/16912 NA 139 K 3.9 CL 103 CO2 28 BUN 20* CREA 0.96 GLU 117* CALCIUM 9.2 BILITOT 0.6 AST 18 ALT 22 ALKPHOS 51 ALBUMIN 3.4 Electronically signed by: Yang Townsend MD 10/05/2016 10:12 Total time in face to face discussion with the patient and family was 15 minutes; more than 50% of the time was spent in counseling and coordination of care. Portions of this chart may have been created with [email or web address] voice recognition software. Occasi onal wrong-word or sound-alike substitutions may have occurred due to the inherent valencia itations of voice recognition software. Please read the chart carefully and recognize, using context, where these substitutions have occurred. documented in this encounter Plan of Treatment +--------+---------+ + + + | Date | Type | Specialty | Care Team | Description | +--------+---------+ + + + | 10/01/ | Office | Cardiology | Karen Bansal, | | | 2019 | Visit | | MD Patricia JOHNSON | | | | | | [place], [place] | | | | | | [id number] | | | | | | | | +--------+---------+ + + + documented as of this encounter Procedures + +--------+ + + + | Procedure Name | Priori | Date/Time | Associated Diagnosis | Comments | | | ty | | | | + +--------+ + + + | DIFFERENTIAL, MANUAL | Routin | 10/05/2016 | Diffuse large | Results for this | | | e | 9:13 AM | B-cell lymphoma of | procedure are in the | | | | PST | intra-abdominal | results section. | | | | | lymph nodes (HCC) | | | | | | Lymphedema of left | | | | | | lower extremity | | + +--------+ + + + | CBC WITH | STAT | 10/05/2016 | Diffuse large | Results for this | | DIFFERENTIAL | | 9:13 AM | B-cell lymphoma of | procedure are in the | | | | PST | intra-abdominal | results section. | | | | | lymph nodes (HCC) | | | | | | Lymphedema of left | | | | | | lower extremity | | + +--------+ + + + | LACTATE | STAT | 10/05/2016 | Diffuse large | Results for this | | DEHYDROGENASE | | 9:13 AM | B-cell lymphoma of | procedure are in the | | | | PST | intra-abdominal | results section. | | | | | lymph nodes (HCC) | | | | | | Lymphedema of left | | | | | | lower extremity | | + +--------+ + + + | COMPREHENSIVE | Routin | 10/05/2016 | Diffuse large | Results for this | | METABOLIC PANEL | e | 9:13 AM | B-cell lymphoma of | procedure are in the | | | | PST | intra-abdominal | results section. | | | | | lymph nodes (HCC) | | | | | | Lymphedema of left | | | | | | lower extremity | | + +--------+ + + + documented in this encounter Results Differential, Manual (10/05/2016 9:13 AM PST) + + + + + + | Component | Value | Ref Range | Performed | Pathologist | | | | | At | Signature | + + + + + + | % Segmented | 19.0 (L) | 50.0 - 70.0 % | [facility] | | | | [facility] | | | Neutrophils | | | MEDICAL | | | | | | CENTER - | | | | | | LABORATORY | | + + + + + + | % | 49.0 (H) | 20.0 - 40.0 % | [facility] | | | Lymphocytes | | | [facility] | | | | | | [facility]ICAL | | | | | | CENTER - | | | | | | LABORATORY | | + + + + + + | % Monocytes | 6.0 | 1.0 - 6.0 % | [facility] | | | | | | [facility] | | | | | | [facility] | | | | | | C[facility] - | | | | | | LABORATORY | | + + + + + + | % | 3.0 | 1.0 - 5.0 % | [facility] | | | Eosinophils | | | [facility] | | | | | | [facility]ICAL | | | | | | CENTER - | | | | | | LABORATORY | | + + + + + + | % Basophils | 2.0 (H) | 0.0 - 1.0 % | [facility] | | | | | | [facility] | | | | | | [facility] | | | | | | CENTER - | | | | | | LABORATORY | | + + + + + + | % | 2.0 (H) | <0.0 % | [facility] | | | Metamyelocy | | | [facility] | | | blank | | | MEDICAL | | | | | | CENTER - | | | | | | LABORATORY | | + + + + + + | % Bands | 19.0 (H) | 0.0 - 5.0 % | [facility] | | | | | | [facility] | | | | | | [facility]ICAL | | | | | | CENTER - | | | | | | LABORATORY | | + + + + + + | Absolute | 0.23 (L) | 1.80 - 7.70 | [facility] [...] + + + + | Absolute | 0.07 | 0.00 - 0.80 | [facility] | | | Monocytes | | K/uL | [facility] | | | | | | MEDICAL | | | | | | CENTER - | | | | | | LABORATORY | | + + + + + + | Absolute | 0.04 | 0.00 - 0.50 | [facility] | [...] + + | Absolute | 0.02 | K/uL | [facility] | | | Metamyelocy | | | [facility] | | | blank | | | MEDICAL | | | | | | CENTER - | | | | | | LABORATORY | | + + + + + + | Absolute | 0.23 | 0.00 - 1.50 | [facility] | | | Bands | | K/uL | [facility] | [...] + + + + + + | Toxic | Present (A) | Not Present | [facility] | | | Granulation | | | [facility] | | | | | | MEDICAL | | | | | | CENTER - | | | | | | LABORATORY | | + + + + + + | Tear Drop | Slight (A) | (none) | [facility] | | | Cells | | | [facility] | | | | | | MEDICAL | | | | | | CENTER - | | | | | | LABORATORY | | + + + + + + | Reactive | Few (A) | (none) | [facility] | | | Lymphocytes | [...] [address] | [place] | [phone] | | [facility] | | [address] | | | - LABORATORY | | | | + + + + + Lactate Dehydrogenase (10/05/2016 9:13 AM PST) + +-------+ + + + | Component | Value | Ref Range | Performed | Pathologist | | | | | At | Signature | + +-------+ + + + | LDH TOTAL | 160 | 91 - 180 U/L | [facility] | | | | | | [facility] | | | | | [...] + | [facility] | [address] | [place] | [phone] | | [facility] | | [address] | | | - LABORATORY | | | | + + + + + Comprehensive Metabolic Panel (10/05/2016 9:13 AM PST) + + + + + [...] + + + | Anion Gap | 8 | 3 - 16 mmol/L | [facility] | | | | | | [facility] | | | | | | [facility]ICAL | | | | | | CENTER - | | | | | | LABORATORY | | + + + + + + | Glucose | 117 (H) | 70 - 109 mg/dL | [...] mL/min/1.73m2 | [facility] | | | [facility] | RATE,ESTIMATED | | MEDICAL | | | | mL/min/1.48o8Vmgl than | | CENTER - | | [...] + + + + | Alkaline | 51Comment: This is an | 40 - 110 [...] + + + + | BUN/Creatin | 20.8 | | [facility] | | | ine [...] + | [facility] | [address] | [place] | [phone] | | [facility] | | [address] | | | - LABORATORY | | | | + + + + + CBC with Differential (10/05/2016 9:13 AM PST) + + + + + [...] | | MEDICAL | | | | Chari Garcia on | | CENTER - | | | | 10/05/2016 at 9:51 by | | LABORATORY | | | | Desirae Dinh. | | | | + + + + + + | RBC | 3.34 (L) | 4.30 - 5.70 | [facility] [...] + + + + | Hematocrit | 29.4 (L) | 40.0 - 51.0 % | [facility] | | | | | [facility] | | | | | | MEDICAL | | | | | | CENTER - | | | | | | LABORATORY | | + + + + + + | MCV | 87.9 | 83.0 - 101.0 fL | [facility] [...] + + + + | RDW-CV | 20.1 (H) | <15.0 % | [facility] | | | | [facility] | | | | | | MEDICAL | | | | | | CENTER - | | | | | | LABORATORY | | + + + + + + | Platelet | 76 (L) | 140 - 440 K/uL | [...] [address] | [place] | [phone] | | [facility] | | [address] | | | - LABORATORY | | | | + + + + + documented in this encounter Visit Diagnoses + + | Diagnosis | + + | Diffuse large B-cell lymphoma of intra-abdominal lymph nodes (HCC) - Primary Other | | malignant lymphomas of intra-abdominal lymph nodes | + + | Lymphedema of left lower extremity | + + | Antineoplastic chemotherapy induced pancytopenia (HCC) | + + documented in this encounter
--- OUTSIDE RECORDS SUMMARY | ~2019-09-27 | XMS | Encounter Summary ---
Demographics + + + | Address | [address] | | | [place] [address] | + + + | Home Phone [...] [place] | | | | | [address] | | + + + + + Care Team Providers + +------+ + | Care Chemical Production Technician Name | Role | Phone | [...] + + | 09/05/ | Office | [facility] | Mohamud, | Lymphedema of left | | 2016 | Visit | MED CNT ONCOLOGY | Gerber Benson MD [address] | lower extremity | | | | THERAPY [address] | [address] [place] | (Primary Dx) | | | | [place], | [place] [address] | | | | | [place] [address] | [phone] | | | | | [phone] | | | | | | | [...] Portillo OT - 09/05/2016 11:16 AM PST [facility] CTR THERAPY OT OP [address] [place] [address] Occupational Therapy Daily Treatment Note Date: 09/05/2016 Patient Information Patient Name: Gerber Galindo Date of : 1950 Age: 66 y.o. History Encounter Diagnoses Code Name Primary? I89.0 Lymphedema of left lower extremity Yes Date of Onset: 2016 Referring Provider: Gerber Mallory MD Rehab Precautions Office Visit from 08/24/2016 in [facility] CTR THERAPY OT OP Rehab Precautions Precautions None Rehab Learning Style Office Visit from 08/24/2016 in [facility] CTR THERAPY OT OP Learning [...] [place] | | | | | | [address] | | | | | | | | +--------+---------+ + + + documented as of this encounter Visit Diagnoses + + | Diagnosis | + + | Lymphedema of left lower extremity - Primary | + + documented in this encounter"
--- OUTSIDE RECORDS SUMMARY | ~2019-09-27 | XMS | Encounter Summary ---
Demographics + + + | Address | [address] | | | [place] [address] | + + + | Home Phone | | + + + | Preferred Language | Unknown | + + + | Marital Status | | + + + | Rastafari Affiliation | 1013 | + + + | Race | Unknown | + + + | Ethnic Group | Unknown | + + + Author + + + | Author | [facility] | | | and [place] | + + + | Organization | [facility] | | | [...] [place] | | | | | [address] | | + + + + + Care Team Providers + +------+ + | Care Type Cutter Name | Role | Phone | + [...] | | Lymphedema | Mohamud, | [address] [place] | | | | | of left | Gerber Benson, | [place], | | | | | lower | MD [address] | [place] [address] | | | | | extremity | [address] | Phone: | | | | | Procedures | [place], | [phone] | | | | | [place] Abdomen | [place] [address] | Fax: | | | | | Pelvis w | Phone: | [phone] | | | | | Contrast | [phone] | | | | | | | Fax: | | | | | | | [phone] | | +--------+--------+ + + + + [...] | | Lymphedema | Mohamud, | [address] [place] | | | | | of left | Gerber Benson, | [place], | | | | | lower | MD [address] | [place] [address] | | | | | extremity | [address] | Phone: | | | | | Procedures | [place], | [phone] | | | | | [place] Abdomen | [place] [address] | Fax: | | | | | Pelvis w | Phone: | [phone] | | | | | Contrast | [phone] | | | | | | | Fax: | | | | | | | [phone] | | +--------+--------+ + + + + Encounter Details +--------+ + + + + | Date | Type | Department | Care Team | Description | +--------+ + + + + | 04/18/ | Hospital | [facility] | Mohamud, | Lymphedema of left | | 2017 | Encounter | MED CTR [address] | Gerber Benson MD [address] | lower extremity | | | | [place], | [address] [place] | | | | | [place] [address] | [place] [address] | | | | | [phone] | [phone] | | | | | | | [...] [place] | | | | | | [address] | | | | | | | [...] | Procedure Note | + + | Dario Rad Results In - 04/18/2017 2:37 PM [...] + + | Performing | Address | City/[facility] | Phone Number | | Organization | [...]
--- OUTSIDE RECORDS SUMMARY | ~2019-09-27 | XMS | Encounter Summary ---
Demographics + + + | Address | [address] | | | [place] [address] | + + + | Home Phone [...] [place] | | | | | [address] | | + + + + + Care Team Providers + +------+ + | Care Cotton Picker Name | Role | Phone | + [...] + | 07/25/ | Documentati | [facility] | Parrish Traore, | Psychosocial Support | | 2015 | on | MED CTR MEDICAL | [facility] | | | | | [facility]Y CLINIC [address] | | | | | | [address] | | | | | | [place] [address] | | | | | | [phone] | | | +--------+ + + + [...] Parrish Traore MSW - 07/26/2016 1:24 PM [facility] met with patient, Gerber casno (Rocky), to introduce self and administer NCCN Distress Screening Tool. Rios is being treated for lymphoma. He lives in [place] with his , Mara. 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 Rios is alert and oriented X4 and [...] good coping skills and strong nicolasa. This Director Volunteer Services allowed for expression of feeling and provided supportive counseling and information regarding the emotional aspects of a cancer diagnosis and treatment. Encourage [place] to attend community support group and offered literature on patient s diagnosis. Provided an ACS booklet on Chemotherapy. This Director Volunteer Services and Jingle Writer are available to provide emotional support an [...] | | | | | [place] | | | | | | [address] | | | | | | | | +--------+---------+ + + + documented as of this encounter Visit Diagnoses Not on filedocumented in this encounter"
--- OUTSIDE RECORDS SUMMARY | ~2019-09-27 | XMS | Encounter Summary ---
Demographics + + + | Address | [address] | | | [place] [address] | + + + | Home Phone [...] [place] | | | | | [address] | | + + + + + Care Team Providers + +------+ + | Care Wool Fleece Sorter Name | Role | Phone | + [...] large b-cell | Gerber Benson, | [address] [place] | | | | | lymphoma, | MD [address] | [place], | | | | | intra-abdomi | [address] | [place] [address] | | | | | nal lymph | [place], | Phone: | | | | | nodes (HCC) | [place] [address] | [phone] | | | | | Procedures | Phone: | Fax: | | | | | [place] | [phone] | [phone] | | | | | RITUXIMAB | Fax: | | | | | | INJECTION, | [phone] | | | | | | 100 MG IN | | | | | | | MEPERIDINE | | | | | | | HYDROCHL | | | | | | | /100 MG IN | | | | | | | IV INFUSION, | | | | | | | HYDRATION, | | | | | | | 31-60 MIN | | | | | | | IN IV | | | | | | | INFUSION, | | | | | | | HYDRATION, | | | | | | | EA ADD HOUR | | | | | | | IN | | | | | | | ONDANSETRON | | | | | | | HCL | | | | | | | INJECTION, 1 | | | | | | | MG IN | | | | | | | DEXAMETHASON | | | | | | | E SODIUM | | | | | | | PHOS, 1 MG | | | | | | | IN | | | | | | | FOSAPREPITAN | | | | | | | T INJECTION, | | | | | | | 1 MG IN | | | | | | | PREDNISONE | | | | | | | IR OR DR | | | | | | | ORAL 1MG IN | | | | | | | | | | | | | | CYCLOPHOSPHA | | | | | | | MIDE 100 MG | | | | | | | INJ IN | | | | | | | DOXORUBICIN | | | | | | | HCL | | | | | | | INJECTION, | | | | | | | 10 MG IN | | | | | | | VINCRISTINE | | | | | | | SULFATE 1 MG | | | | | | | INJ IN | | | | | | | DIPHENHYDRAM | | | | | | | INE HCL | | | | | | | INJECTIO, 50 | | | | | | | MG IN | | | | | | | METHYLPREDNI | | | | | | | SOLONE | | | | | | | INJECTION, | | | | | | | 125 MG IN | | | | | | | DEXAMETHASON | | | | | | | E SODIUM | | | | | | | PHOS, 1 MG | | | | | | | IN | | | | | | | INJECTION, | | | | | | | PEGFILGRASTI | | | | | | | M 6MG IN | | | | | | | NORMAL | | | | | | | SALINE | | | | | | | SOLUTION | | | | | | | INFUS, 500 | | | | | | | ML IN | | | | | | | NORMAL | | | | | | | SALINE | | | | | | | SOLUTION | | | | | | | INFUS, 250 | | | | | | | ML IN | | | | | | | STERILE | | | | | | | WATER/SALINE | | | | | | | , 10 ML IN | | | | | | | CHEMOTHER, | | | | | | | IV PUSH,EA | | | | | | | ADD DRUG IN | | | | | | | CHEMOTHER, | | | | | | | IV INFUSION, | | | | | | | 1 HR IN | | | | | | | CHEMOTHER, | | | | | | | IV INFUSION, | | | | | | | EA HR IN | | | | | | | CHEMOTHER,NO | | | | | | | N-HORMONE | | | | | | | ANTI-NEOPL, | | | | | | | SUB-Q/IM IN | | | | | | | [...] + + + + | 07/25/ | [facility] | [facility] | Mohamud, | Diffuse large B-cell | | 2016 | Encounter | MED CTR CHEMO | Gerber Benson MD [address] | lymphoma of | | | | INFUSION [address] | [address] [place] | intra-abdominal | | | | [place], | [place] [address] | lymph nodes (HCC) | | | | [place] [address] | [phone] | | | | | [phone] | | | +--------+ + + + [...] | | | | | [place] | | | | | | [address] | | | | | | | [...]
--- OUTSIDE RECORDS SUMMARY | ~2019-09-27 | XMS | Encounter Summary ---
Demographics + + + | Address | [address] | | | [place] [address] | + + + | Home Phone [...] [place] | | | | | [address] | | + + + + + Care Team Providers + +------+ + | Care Body Painter Name | Role | Phone | [...] ONCOLOGY CLINIC [address] [facility] | | | | | [address] [place] | [place] [address] | | | | | [place] [address] | [phone] | | | | | [phone] | | | +--------+ + + + [...] [place] | | | | | | [address] | | | | | | | | +--------+---------+ + + + documented as of this encounter Visit Diagnoses Not on filedocumented in this encounter"
--- OUTSIDE RECORDS SUMMARY | ~2019-09-27 | XMS | Encounter Summary ---
Demographics + + + | Address | [address] | | | [place] [address] | + + + | Home Phone | | + + + | Preferred Language | Unknown | + + + | Marital Status | | + + + | Anabaptism Affiliation | 1013 | + + + | Race | Unknown | + + + | Ethnic Group | Unknown | + + + Author + + + | Author | [facility] | | | and [place] | + + + | Organization | [facility] | | [...] [place] | | | | | [address] | | + + + + + Care Team Providers + +------+ + | Care Cutting Machine Offbearer Name | Role | Phone | + [...] | | Diffuse | Mohamud, | [address] | | | | | large B-cell | Joaquim C, | [place], | | | | | lymphoma of | MD [address] | [place] [address] | | | | | | [address] | Phone: | | | | | intra-abdomi | [place], | [phone] | | | | | nal lymph | [place] [address] | Fax: | | | | | nodes (HCC) | Phone: | [phone] | | | | | Procedures | [phone] | | | | | | CT Abdomen | Fax: | | | | | | Pelvis w | [phone] | | | | | | Contrast [...] | | | nal lymph | [place] [address] | [address] Phone: | | | | | nodes (HCC) | Phone: | [phone] | | | | | Procedures | [phone] | Fax: | | | | | [address] | Fax: | [phone] | | | | | | [phone] | | +--------+--------+ + + + + Encounter Details +--------+ + + + + | Date | Type | Department | Care Team | Description | +--------+ + + + + | 10/09/ | Hospital | [facility] | Mohamud, | Diffuse large B-cell | | 2018 | Encounter | [facility] | Joaquim Benson MD [address] | lymphoma of | | | | ONCOLOGY CLINIC [address] | [address] [place] | intra-abdominal | | | | [address] [place] | [facility] [place] [address] | lymph nodes (HCC) | | | | [place] [address] | [phone] | (Primary Dx) | | | | [phone] | | | +--------+ + + + [...] nt from the original. Hematology/Oncology Progress Note [facility] [place] Pt. Name/Age/: Joaquim aSnchez Jr. 67 y.o. 1950 [facility]. Record Number: [id number] Date of admission: 10/09/2017 Identifying Statement: Joaquim Sanchez Jr. is a 67 y.o. male from [address] [address] with Mixed Diffuse Large B-Cell/Follicular Lymphoma in [...] lower extremity. CT abdomen/Pelvis with contrast 2016 ([facility] Ex tensive periaortic lymphadenopathy (1.8 cm and 2.1 cm respectively), extensive adenopathy ex tending out along the left common iliac artery and encasing the left external iliac artery ( 4.4 cm) with compromise of the left external iliac vein. 2. Open laparotomy with LEFT ileal retroperitoneal lymph node biopsy (ESTEE Morton) June 242015. Specimen #[id number] ([facility]); Diffuse Large [...] September 04, 2016. 10. CT Abdomen/Pelvis at [facility] on September 12, 2016; Positive Response [...] (PRIMA protocol). 14. Repeat CT scan at [facility], [place], [place] on December 01, [address] [...] [address] scan at [facility] on April 18, 2017 [...] ly mphedema machine for home use through [facility] home health. Chief complaint is fatigue. Clinical [...] Rebel REdita., Andie Menezes., Michael Trejo., Michael, T.E., Dara, [...] 2006 , Vol. 47, No. 6, pp 9120-3390. In the first article, an observational study [...] - Patient Discharge) Topical, PRN, Pain, Starting Sun10/09/17 at 0902 OrderHistory Nursing Orders OK to [...] (Not Released) Schedule CT scan abdomen/pelvis at [facility] QFU CBC,CMP,LDH Port DRAW IN 2 months with 4 hour infusion. OrderHistory Pre-Medications acetaminophen (TYLENOL) tablet 650 mg 650 mg, Oral, ONCE, Sun10/09/17 at 1115, For 1 dose Give 30 minutes prior to riTUXimab. OrderHistory famotidine (PEPCID) injection 20 mg 20 mg, Intravenous, ONCE, Sun10/09/17 at 1115, For 1 dose Prior to administration, prepare a 20 mg dose by diluting 2 mL of famotidine 10 mg/mL to 10 mL with normal saline. OrderHistory CHEMOTHERAPY riTUXimab (RITUXAN) 1,000 mg in sodium chloride 0.9% 1,000 mL infusion 1,000 mg (rounded from 997.5 mg = 375 mg/m2 2.66 m2 Treatment plan recorded BSA), Intra venous, ONCE, Sun10/09/17 at 1145, For 1 dose Initial infusion: [...] infusion, activate mikayla zamora and notify MD. OrderHistory JOAQUIM TEJEDA MD Portions of this chart may have been created with [employer] voice recognition software. Occasi onal wrong-word or [...] [place] | | | | | | [id number] | | | | | | | [...]
--- OUTSIDE RECORDS SUMMARY | ~2019-09-27 | XMS | Encounter Summary ---
Demographics + + + | Address | [address] | | | [place] [address] | + + + | Home Phone | | + + + | Preferred Language | Unknown | + + + | Marital Status | | + + + | Methodist Affiliation | 1013 | + + + [...] [place] | | | | | [address] | | + + + + + Care Team Providers + +------+ + | Care Lunchroom Supervisor Name | Role | Phone | [...] + + | 03/25/ | Hospital | [facility] | Mohamud, | Diffuse large B-cell | | 2018 | Encounter | [facility] | Joaquim Benson MD [address] | lymphoma of | | | | ONCOLOGY CLINIC [address] | [address] [place] | intra-abdominal | | | | [address] [place] | [place] [address] | lymph nodes (HCC) | | | | [place] [address] | [phone] | | | | | [phone] | | | +--------+ + + + [...] documented as of this encounter Progress Notes oJaquim Mallory MD - 03/25/2018 8:20 AM PDTFormatting of this note might be differe nt from the original. Hematology/Oncology Progress Note [place], [place] Pt. Name/Age/: Joaquim Sanchez Jr. 67 y.o. 1950 Med. Record Number: [id number] Date of admission: 03/25/2018 The patient's primary care provider is Kelsey Quintanilla MD. Identifying Statement: Joaquim Sanchez Jr. is a 67 y.o. male from [address] [address] with Mixed Diffuse Large B-Cell/Follicular Lymphoma in [...] lower extremity. CT abdomen/Pelvis with contrast 2016 ([facility]). Ex tensive periaortic lymphadenopathy (1.8 cm and 2.1 cm respectively), extensive adenopathy ex tending out along the left common iliac artery and encasing the left external iliac artery ( 4.4 cm) with compromise of the left external iliac vein. 2. Open laparotomy with LEFT ileal retroperitoneal lymph node biopsy (Praveen, [facility]) June 242015. Specimen #[id number] ([facility]); Diffuse Large B-Cell lymph raciel, [...] CT Abdomen/Pelvis at [facility] [place] on September 12, 2016; Positive Response when [...] (PRIMA protocol). 14. Repeat CT scan at [facility], [place], [place] on December 01, [address] [...] [address]. [address] scan at [facility] on April 18, 2017 demonstrated decreased [...] mm 16. Repeat CT scan at [facility] on November 21, 2017 demonstrated [...] 2006 , Vol. 47, No. 6, pp 0187-0780. In the first article, an observational study [...] observational study, by Marques et al from [facility] th at reports neutropenia developed in [...] this chart may have been created with [employer] voice recognition software. Occasi onal wrong-word or [...] | | | | | [address] [place] [place], [place] | | | | | | [address] | | | | | | | | +--------+---------+ + + + documented as of this encounter Visit Diagnoses + + | Diagnosis | + + | Diffuse large B-cell lymphoma of intra-abdominal lymph nodes (HCC) Other malignant | | lymphomas of intra-abdominal lymph nodes | + + documented in this encounter
--- OUTSIDE RECORDS SUMMARY | ~2019-09-27 | XMS | Encounter Summary ---
Demographics + + + | Address | [address] | | | [place] [address] | + + + | Home Phone [...] [place] | | | | | [address] | | + + + + + Care Team Providers + +------+ + | Care Electronic Parts Salesperson Name | Role | Phone | [...] large b-cell | Gerber Benson, | [address] | | | | | lymphoma, | MD [address] | [place], | | | | | intra-abdomi | [address] | [place] [address] | | | | | nal lymph | [place], | Phone: | | | | | nodes (HCC) | [place] [address] | [phone] | | | | | Procedures | Phone: | Fax: | | | | | [place] | [phone] | [phone] | | | | | INJECTION, | Fax: | | | | | | FAMOTIDINE, | [phone] | | | | | | 20 MG IA | | | | | [...] | | | | | | [place] NORMAL | | | | | | [...] [place] | intra-abdominal | | | | [address] [place], | [place] [address] | lymph nodes (HCC) | | | | [place] [address] | [phone] | | | | | [phone] | | | +--------+ + + + [...] [place] | | | | | | [address] | | | | | | | [...] [address] | [place] | [phone] | | [facility] | | [address] | | | - LABORATORY | | [...] | | MEDICAL | | | | mL/min/1.05h8Dsxe than | | CENTER - | | [...] | | | | | | [facility] | | | | | | MEDICAL [...] + | [facility] | [address] | [place] | [phone] | | [facility] | | [address] | | | - LABORATORY | | [...] ST. | [address] | [place] | [phone] | | [facility] | | [address] | | | - LABORATORY | | [...]
--- OUTSIDE RECORDS SUMMARY | ~2019-09-27 | XMS | Encounter Summary ---
Demographics + + + | Address | [address] | | | [place] [address] | + + + | Home Phone [...] [place] | | | | | [address] | | + + + + + Care Team Providers + +------+ + | Care Heavy Rail Train Operator Name | Role | Phone | [...] | | ONCOLOGY CLINIC [address] | [address] [facility] | | | | | [address] [place] | [place] [address] | | | | | [place] [address] | [phone] | | | | | [phone] | | | +--------+ + + + [...] [place] | | | | | | [address] | | | | | | | | +--------+---------+ + + + documented as of this encounter Visit Diagnoses Not on filedocumented in this encounter"
--- OUTSIDE RECORDS SUMMARY | ~2019-09-27 | XMS | Encounter Summary ---
Demographics + + + | Address | [address] | | | [place] [address] | + + + | Home Phone [...] [place] | | | | | [address] | | + + + + + Care Team Providers + +------+ + | Care Saddle And Side Wire Stitcher Name | Role | Phone | + [...] + + | 09/26/ | Office | [facility] | Mohamud, | Lymphedema of left | | 2017 | Visit | MED CNT ONCOLOGY | Gerber Benson MD [address] | lower extremity | | | | THERAPY [address] | [address] [place] | (Primary Dx) | | | | [place], | [place] [address] | | | | | [place] [address] | [phone] | | | | | [phone] | | | | | | | [...] of an appropriate compression garm ents for supervisor intermediates management of edema. Goal 3 Status: Goal met Treatment Plan/Interventions 90657 - OT [id number] - Therapeutic [id number] - Therapeutic Yrctswvdfj35694 - Manu al Therapy Patient and/or family has indicated understanding of treatment needs and actively participa ian in the creation of this plan for care. Electronically signed by: Olivia Portillo OT, 09/26/2016 14:21 Patient Name: Gerber Galindo/: 1950/ Evelyn Vela OT - 09/26/2016 2:14 PM PSTFormatting of this note might be different from the [facility] [address] [place] [address] Occupational Therapy Discharge Note Date: 09/26/2016 Patient Information Patient Name: Gerber Galindo Date of : 1950 Age: 66 y.o. History Encounter Diagnoses Code Name Primary? I89.0 Lymphedema of left lower extremity Yes Date of Onset: 2016 Referring Provider: Gerber Mallory MD Rehab Precautions Office Visit from 08/24/2016 in [facility] OT OP Rehab Precautions Precautions None Rehab Learning Style Office Visit from 08/24/2016 in [facility] OT OP Learning [...] of an appropriate compression garm ents for supervisor intermediates management of edema. Goal 3 Status: Goal met Plan Date of Onset: 2016 Start of Care Date: 08/24/2016 Requested # of Visits: 8 visits 1x/week for 8 weeks Certification From: 08/24/2016 Certification To: 10/24/2016 Treatment Plan/Interventions 26929 - OT [id number] - Therapeutic Hfrsbzqv83576 - Therapeutic Rgzvnyzioo23163 - Manu al Therapy Patient and/or family [...] concerns at this time. PLAN: Discharge to [facility]. Electronically signed by: Olivia Portillo OT, 09/26/2016 [...] [place] | | | | | | [address] | | | | | | | | +--------+---------+ + + + documented as of this encounter Visit Diagnoses + + | Diagnosis | + + | Lymphedema of left lower extremity - Primary | + + documented in this encounter
--- OUTSIDE RECORDS SUMMARY | ~2019-09-27 | XMS | Encounter Summary ---
Demographics + + + | Address | [address] | | | [place] [address] | + + + | Home Phone [...] [place] | | | | | [address] | | + + + + + Care Team Providers + +------+ + | Care Family Life Educator Name | Role | Phone | [...] | intra-abdominal | | | | [address] [place] | [place] [address] | lymph nodes (HCC) | | | | [place] [address] | [phone] | (Primary Dx) | | | | [phone] | | | +--------+ + + + [...] | | | | | [place], [place] | | | | | | [address] | | | | | | | [...]
--- OUTSIDE RECORDS SUMMARY | ~2019-09-27 | XMS | Encounter Summary ---
Demographics + + + | Address | [address] | | | [place] [address] | + + + | Home Phone | | + + + | Preferred Language | Unknown | + + + | Marital Status | | + + + | Quaker Affiliation | 1013 | + + + | Race | Unknown | + + + | Ethnic Group | Unknown | + + + Author + + + | Author | [facility] | | | and [place] | + + + | Organization | [facility] | | | [...] [place] | | | | | [address] | | + + + + + Care Team Providers + +------+ + | Care Paper Handler Name | Role | Phone | + [...] + + | 04/16/ | Refill | [facility] | Mohamud, | Medication Refill | | 2017 | | MED [facility] | Gerber Benson MD [address] | | | | | ONCOLOGY CLINIC [address] | [address] [place] | | | | | [address] [place] | [place] [address] | | | | | [place] [address] | [phone] | | | | | [phone] | | | +--------+--------+ + + + [...] [place] | | | | | | [address] | | | | | | | | +--------+---------+ + + + documented as of this encounter Visit Diagnoses + + | Diagnosis | + + | Diffuse large B-cell lymphoma of intra-abdominal lymph nodes (HCC) Other malignant | | lymphomas of intra-abdominal lymph nodes | + + documented in this encounter"
--- OUTSIDE RECORDS SUMMARY | ~2019-09-27 | XMS | Encounter Summary ---
Demographics + + + | Address | [address] | | | [place] [address] | + + + | Home Phone | | + + + | Preferred Language | Unknown | + + + | Marital Status | | + + + | Zoroastrianism Affiliation | 1013 | + + + | Race | Unknown | + + + | Ethnic Group | Unknown | + + + Author + + + | Author | [facility] | | | and [place] | + + + | Organization | [facility] | | | [...] [place] | | | | | [address] | | + + + + + Care Team Providers + +------+ + | Care Wood Boring Machine Operator Name | Role | Phone [...] | | Lymphedema | Mohamud, | [address] | | | | | of left | Joaquim Benson, | [place], | | | | | lower | MD [address] | [place] [address] | | | | | extremity | [address] | Phone: | | | | | Procedures | [place], | [phone] | | | | | CT Abdomen | [place] [address] | Fax: | | | | | Pelvis w | Phone: | [phone] | | | | | Contrast | [phone] | | | | | | | Fax: | | | | | | | [phone] | | +--------+--------+ + + + + Reason for Visit + + + | Reason | Comments | + + + | Follow-up | | + + + Encounter Details +--------+ + + + + | Date | Type | Department | Care Team | Description | +--------+ + + + + | 02/26/ | Hospital | [facility] | Mohamud, | Lymphedema of left | | 2017 | Encounter | MED CTR MED[facility] | Joaquim Benson MD [address] | lower extremity | | | | ONCOLOGY CLINIC [address] | [address] [place] | (Primary Dx); | | | | [address] [place] | [place] [address] | Diffuse large B-cell | | | | [place] [address] | [phone] | lymphoma of | | | | [phone] | | intra-abdominal | | | | [...] Note [facility] [place] Pt. Name/Age/: Joaquim Sanchez Jr. 66 y.o. 1950 [facility] Record Number: [id number] Date of admission: 02/26/2017 Identifying Statement: Joaquim Sanchez Jr. is a 66 y.o. male from [address] [address] with Mixed Diffuse Large B-Cell/Follicular Lymphoma. The [...] lower extremity. CT abdomen/Pelvis with contrast 2016 ([facility]). Ex tensive periaortic lymphadenopathy (1.8 cm and 2.1 cm respectively), extensive adenopathy ex tending out along the left common iliac artery and encasing the left external iliac artery ( 4.4 cm) with compromise of the left external iliac vein. 2. Open laparotomy with LEFT ileal retroperitoneal lymph node biopsy (Praveen, ESTEE) June 242015. Specimen #[id number] ([facility]ology); Diffuse Large B-Cell lymph raciel, germinal [...] September 04, 2016. 10. CT Abdomen/[facility]elvis at [facility] on September 12, 2016; Positive Response [...] (PRIMA protocol). 14. Repeat CT scan at [facility], [place] on December 01, [address] able [...] is notable for the fact that Rios's electronic musical instrument repairer prescribed Sinemet 10/ 100 for his restless [...] n the nails being extracted by his electronic musical instrument repairer and these are growing back slowly. Headaches have resolved. Decreased visual acuity has resolved. Chest pain or palpitations and dyspne a on exertion have resolved. 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 Clinica l exam is notable for stable left lower extremity lymphedema. Rios is working with Nemesio at [facility] physical therapy who is administering [...] 2006 , Vol. 47, No. 6, pp 7624-7918. In the first article, an observational study [...] this chart may have been created with [employer] voice recognition software. Occasi onal wrong-word or [...] | | | | | [place] | | | | | | [id number] | | | | | | | [...]
--- OUTSIDE RECORDS SUMMARY | ~2019-09-27 | XMS | Encounter Summary ---
Demographics + + + | Address | [address] | | | [place] [address] | + + + | Home Phone [...] [place] | | | | | [phone] | | + + + + + Care Team Providers + +------+ + | Care Active Directory Administrator Name | Role | Phone | + +------+ + PCP | Unavailable | + +------+ + Encounter Details +--------+ + + + + | Date | Type | Department | Care Team | Description | +--------+ + + + + | 02/26/ | Hospital | [facility] | Zaheer Martins MD | NSTEMI (non-ST | | 2014 - | Encounter | [facility] | [address] | elevated myocardial | | | | CLINICAL DECISION | [place] [address] | infarction) (HCC); | | 02/27/ | | [address] | [phone] | Chest pain, | | 2013 | | [place], [place] | | unspecified; CPAP | | | | [phone] | | (continuous positive | | | | [phone] | | airway pressure) | | | [...] Summaries by Charo Guerrero MD at 02/27/14 1388 Author: Charo Guerrero MD Service: Hospitalist Author Type: Physician Filed: 02/27/14 1413 Date of Service: 02/27/14 1402 Status: Signed Child Custody Evaluator: Charo Guerrero MD (Physician) [facility] Service: Hospitalist Discharge Summary Date of Admission: [...] past 3-4 days. He was seen at [facility] and his troponin w as 0.234 hence the transfer to [facility]. HOSPITAL COURSE: NSTEMI s/p cath by Dr. Gibbs. Pt had stent placed, cath report pending. Cont plavix for a year and ASA daily indefinitely. Ff-up with Dr. Gibbs or hospice superintendent in [place]. Advised re weight loss and exercise. Pt [...] Component Value Units Date/Time Basic metabolic panel [[id number]] Collected:02/27/14539 Specimen Information:Blood Updated:02/27/14720 SODIUM 137 mmol/L POTASSIUM 4.2 mmol/L CHLORIDE 105 mmol/L CO2 27 mmol/L ANION GAP AGAP 9 mmol/L GLUCOSE 98 mg/dL BUN 16 mg/dL CREATININE 0.96 mg/dL BUN/CREAT 17 CALCIUM 9.3 mg/dL EGFR >60 mL/min/1.73m2 Lipid panel [[id number]] (Abnormal) Collected:02/27/14539 Specimen Information:Blood Updated:02/27/14720 CHOLESTEROL 150 mg/dL Triglycerides 182 (H) mg/dL HDL CHOL 34 (L) mg/dL LDL CALC 80 mg/dL Magnesium [[id number]] Collected:02/27/14539 Specimen Information:Blood Updated:02/27/14720 MAGNESIUM 2.1 mg/dL Phosphorus [[id number]] Collected:02/27/14539 Specimen Information:Blood Updated:02/27/14720 PHOSPHORUS 3.6 mg/dL CBC w/auto diff (reflex to manual) [[id number]] (Abnormal) Collected:02/27/14539 Specimen Information:Blood Updated:02/27/14657 WBC 4.2 [...] ABS 0.0 K/uL MORPHOLOGY POC ACT, arterial [[id number]] (Abnormal) Collected:02/26/14 2249 POC ACT 198 (H) seconds Updated:02/26/14 2303 CK MB [[id number]] (Abnormal) Collected:02/26/14 1725 MMB 5.4 (H) ng/mL Updated:02/26/14 1853 CK-MB Index 2.4 CPK [[id number]] Collected:02/26/14 172 Specimen Information:Blood Updated:02/26/14 1853 CPK 228 U/L Troponin I [[id number]] (Abnormal) Collected:02/26/14 1725 Specimen Information:Blood Updated:02/26/14 1853 TROPONIN I 1.05 (HH) ng/mL Troponin I [[id number]] (Abnormal) Collected:02/26/14 1151 Specimen Information:Blood Updated:02/26/14 1238 TROPONIN I 0.855 (HH) ng/mL CK MB [[id number]] (Abnormal) Collected:02/26/14 1151 MMB 5.9 (H) ng/mL Updated:02/26/14 1238 CK-MB Index 2.5 CPK [[id number]] Collected:02/26/14 1151 Specimen Information:Blood Updated:02/26/14 1238 CPK 239 U/L Troponin I [[id number]] (Abnormal) Collected:02/26/14 0956 Specimen Information:Blood Updated:02/26/14 1050 TROPONIN I 0.788 (HH) ng/mL CPK [[id number]] Collected:02/26/14 09 Specimen Information:Blood Updated:02/26/14 1050 CPK 257 U/L CK MB [[id number]] (Abnormal) Collected:02/26/14 0956 Specimen Information:Blood Updated:02/26/14 1050 MMB 5.3 (H) ng/mL CK-MB Index 2.1 Results No Results found for the last 72 hours. Disposition: home Condition: stable and improved Code Status: Full Code Discharge Instructions Basic metabolic panel Standing Status: Future Standing Exp. Date: 02/27/15 CBC w/manual diff Standing Status: Future Standing Exp. Date: 02/27/15 Follow up: Hodan Chacko MD [address], [address] [place] [address] In 1 week Dawson Gibbs MD [address] [place] [address] [facility] Emergency Department [address] 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 You may get these medications from [...] Notes by Dawson Gibbs MD at 02/27/14 0848 Author: Dawson Gibbs MD Service: Cardiology Author Type: Physician Filed: 03/01/14 2159 Date of Service: 02/27/1446 Status: Signed Child Custody Evaluator: Dawson Gibbs MD (Physician) Related Notes: Original Note by Dawson Gibbs MD (Physician) filed at 02/27/14 0851 [facility] Service: Cardiology/[facility] Progress Note RE: Joaquim Sanchez : 1950 DATE OF SERVICE: 02/26/2014 PROVIDER:DAWSNO GIBBS Pt is seen for F/U on: [...] happy to follow him here in the [facility]; but the fact he lives in [place], I gave him also the option to [...] 02/26/141623 Date of Service: 02/26/141623 Status: Signed Child Custody Evaluator: ZANE Cesar (Massage Therapist) 02/26/14 1623 Massage Therapy Interventions Locations Back;Neck;Shoulder Massage Therapy Technique Effleurage;Petrissage;Swazi massage;Trigger point Response to treatment Decreased pain;Decreased muscle tension Goals Short Term Goal #1 Decreased muscle tension;Decreased pain;Increase comfort;Increased relax ation onver christopher Transaction, Provider Unknown - 02/26/2014 11:16 AM PDT Progress Notes by Joi Gonzalez RPH at 02/26/14 1116 Author: Joi Gonzalez RPH Service: (none) Author Type: Pharmacist Filed: 02/26/14 1116 Date of Service: 02/26/14 1116 Status: Signed Child Custody Evaluator: Joi Gonzalez RPH (Pharmacist) Renal Dosing Monitoring: [...] Author: LOR Ron Service: (none) Author Type: Livestock Commission Agent Filed: 02/26/14 1031 Date of Service: 02/26/14 1028 Status: Signed Child Custody Evaluator: LOR Ron (Livestock Commission Agent) 02/26/14 1025 Discharge Planning Evaluation Admitting Diagnosis NStemi Readmission No Living Arrangements Spouse/significant other (Mara Mejiaesell [phone]) Type of Residence Private residence House type House 2 story Steps to enter 2 Independent with ADL's Yes Independent with Mobility Yes Home Care Services No Mental Status Oriented Resources Transportation issues Yes Prescription Plan Yes Name of Pharmacy [facility] in [place] Previous home health equipment No Vascular access device No Ostomy/Drains/Appliances No Anticipated Disposition Facility Type Other (Comment) (Return Home) Met with: patient and his and discussed discharge planning, Pt is a 63 y.o., male who lives in [place]. Patient's PCP is: HODAN CHACKO Patient's insurance: [...] [place] | | | | | | [id number] | | | | | | | [...] + + | Historically converted procedure from [facility] environment | EXTERNAL LAB | + + [...] | | LAB | | | | [address], | | | | | | [place] [address] | | | | + + + + + + | RED CELL | 4.33Comment: Testing | 4.20 - 5.70 | EXTERNAL | | | COUNT | performed at [facility], [address] | M/uL | LAB | | | | [address], | | | | | | [place] [address] | | | | + + + + + + | Hgb | 12.5 (L)Comment: Testing | 13.2 - 17.0 | EXTERNAL | | | | performed at [facility], [address] | g/dL | LAB | | | | [address], | | | | | | [place] [address] | | | | + + + + + + | Hematocrit, | 37.3 (L)Comment: Testing | 39.0 - 50.0 % | EXTERNAL | | | POC | performed at [facility], [address] | | LAB | | | | [address], | | | | | | [place] [address] | | | | + + + + + + | MCV | 86.1Comment: Testing | 80.0 - 100.0 fl | EXTERNAL | | | | performed at [facility], [address] | | LAB | | | | [address], | | | | | | [place] [address] | | | | + + + + + + | MCH | 28.9Comment: Testing | 27.0 - 34.0 pg | EXTERNAL | | | | performed at [facility], [address] | | LAB | | | | [address], | | | | | | [place] [address] | | | | + + + + + + | MCHC | 33.5Comment: Testing | 32.0 - 35.5 | EXTERNAL | | | | performed at [facility], [address] | g/dL | LAB | | | | [address], | | | | | | [place] [address] | | | | + + + + + + | RDW-CV | 47.7Comment: Testing | 37 - 53 fl | EXTERNAL | | | | performed at [facility], [address] | | LAB | | | | [address], | | | | | | [place] [address] | | | | + + + + + + | Platelet | 123 (L)Comment: Testing | 150 - 400 K/uL | EXTERNAL | | | Count | performed at [facility], [address] | | LAB | | | Plasma | [address], | | | | | | [place] [address] | | | | + + + + + + | MPV | 8.7Comment: Testing | fl | EXTERNAL | | | | performed at [facility], [address] | | LAB | | | | [address], | | | | | | [place] [address] | | | | + + + + + + | Differentia | AUTOMATEDComment: | | EXTERNAL | | | l Type | Testing performed at | | LAB | | | | [facility], [address] | | | | | | [place] | | | | | | [address] | | | | + + + + + + | % Segmented | 59.9Comment: Testing | % | EXTERNAL | | | | performed at [facility], [address] | | LAB | | | Neutrophils | [address], | | | | | | [place] [address] | | | | + + + + + + | % | 30.6Comment: Testing | % | EXTERNAL | | | Lymphocytes | performed at [facility], [address] | | LAB | | | | [address], | | | | | | [place], [place] [address] | | | | + + + + + + | % Monocytes | 7.2Comment: Testing | % | EXTERNAL | | | | performed at [facility], [address] | | LAB | | | | [address], | | | | | | [place], [place] [address] | | | | + + + + + + | % | 1.9Comment: Testing | % | EXTERNAL | | | Eosinophils | performed at [facility], [address] | | LAB | | | | [address], | | | | | | [place] [address] | | | | + + + + + + | % Basophils | 0.4Comment: Testing | % | EXTERNAL | | | | performed at [facility], [address] | | LAB | | | | [address], | | | | | | [place] [address] | | | | + + + + + + | Absolute | 2.5Comment: Testing | 1.9 - 7.4 K/uL | EXTERNAL | | | Segmented | performed at [facility], [address] | | LAB | | | Neutrophils | [address], | | | | | | [place] [address] | | | | + + + + + + | Absolute | 1.3Comment: Testing | 1.0 - 3.9 K/uL | EXTERNAL | | | Lymphocytes | performed at [facility], [address] | | LAB | | | | [address], | | | | | | [place] [address] | | | | + + + + + + | Absolute | 0.3Comment: Testing | 0 - 0.8 K/uL | EXTERNAL | | | Monocytes | performed at [facility], [address] | | LAB | | | | [address], | | | | | | [place] [address] | | | | + + + + + + | Absolute | 0.1Comment: Testing | 0 - 0.5 K/uL | EXTERNAL | | | Eosinophils | performed at [facility], [address] | | LAB | | | | [address], | | | | | | [place] [address] | | | | + + + + + + | Absolute | 0.0Comment: Testing | 0 - 0.1 K/uL | EXTERNAL | | | Basophils | performed at [facility], [address] | | LAB | | | [address], | | | | | | [place] [address] | | | | + + + + + + | RBC | Comment: 1+ | | EXTERNAL | | | Morphology | AnisocytosisTesting | | LAB | | | | performed at [facility], [address] | | | | | | [address], | | | | | | [place] [address] | | | | + + + [...] EXTERNAL | | | | performed at [facility], [address] | | LAB | | | | [address], | | | | | | [place] [address] | | | | + + + [...] EXTERNAL | | | | performed at [facility], [address] | | LAB | | | | [address], | | | | | | [place] [address] | | | | + + + [...] | | | | | [place] [address] | | | | + + + + + + | Triglycerid | 182 (H)Comment: Testing | mg/dL | EXTERNAL | | | es | performed at [facility], [address] | | LAB | | | | [address], | | | | | | [place] [address] | | | | + + + + + + | HDL | 34 (L)Comment: Testing | mg/dL | EXTERNAL | | | | performed at [facility], [address] | | LAB | | | | [address], | | | | | | [place] [address] | | | | + + + + + + | LDL | 80Comment: Testing | mg/dL | EXTERNAL | | | Cholesterol | performed at [facility], [address] | | LAB | | | , | [address], | | | | | Calculated, | [place] [address] | | | | | External | | | | | + + [...] | | | | | [place] [address] | | | | + + + + + + | K | 4.2Comment: Testing | 3.5 - 4.9 | EXTERNAL | | | | performed at [facility], [address] | mmol/L | LAB | | | | [address], | | | | | | [place] [address] | | | | + + + + + + | Cl | 105Comment: Testing | 99 - 109 mmol/L | EXTERNAL | | | | performed at [facility], [address] | | LAB | | | | [address], | | | | | | [place] [address] | | | | + + + + + + | CO2 | 27Comment: Testing | 23 - 32 mmol/L | EXTERNAL | | | | performed at [facility], [address] | | LAB | | | | [address], | | | | | | [place] [address] | | | | + + + + + + | Anion Gap | 9Comment: Testing | 5 - 20 mmol/L | EXTERNAL | | | | performed at [facility], [address] | | LAB | | | | [address], | | | | | | [place], [place] [address] | | | | + + + + + + | Glucose, | 98Comment: Testing | 65 - 99 mg/dL | EXTERNAL | | | Fasting | performed at [facility], [address] | | LAB | | | | [address], | | | | | | [place], [place] [address] | | | | + + + + + + | BUN | 16Comment: Testing | 8 - 25 mg/dL | EXTERNAL | | | | performed at [facility], [address] | | LAB | | | | [address], | | | | | | [place] [address] | | | | + + + + + + | Creatinine | 0.96Comment: Testing | 0.70 - 1.30 | EXTERNAL | | | | performed at [facility], [address] | mg/dL | LAB | | | | [address], | | | | | | [place] [address] | | | | + + + + + + | BUN/Creatin | 17Comment: Testing | | EXTERNAL | | | ine Ratio | performed at [facility], [address] | | LAB | | | | [address], | | | | | | [place] [address] | | | | + + + + + + | Calcium | 9.3Comment: Testing | 8.5 - 10.2 | EXTERNAL | | | | performed at [facility], [address] | mg/dL | LAB | | | | [address], | | | | | | [place] [address] | | | | + + + [...] | | | | | [place] [address] | | | | + + + [...] + + | [facility] | EXTERNAL LAB | + + [...] | | | Clotting | performed at [facility];[address] | seconds | LAB | | | time, POC | [address];[place], [place] | | | | | | [address] | | | | + + + [...] EXTERNAL | | | | performed at [facility];[address] | | LAB | | | | [facility];[place], [place] | | | | | | [address] | | | | + + + [...] | | | | | | ACUTE HI RESULT READ | | | | | | BACK BY:LUISITO Riley ON 3OP | | | | | | AT 1852 BY RICO | | | | | | [id number] performed | | | | | | at [facility];[address] [place] [address] | | | | | | [facility];[place] [address] | | | | + + + [...] EXTERNAL | | | | performed at [facility];[address] | | LAB | | | | [facility], [place] | | | | | | [address] | | | | + + + [...] 86.95 ml D-E Excursion: 2.38 cm E-F [place]: 0.04 | | | m/s IVC diameter: [...] TV A Damien: 0.51 m/s TV Dec [place]: | | | 3.41 m/s2 TV Dec Time: 242.39 ms TV E Damien: 0.82 m/s TV | | | E/A Ratio: 1.61 Chopping Machine Operator: Authenticated by: Dawson | | | Sai ROTH Report Date/Time: 02-26-2014 14:43:32 | | + + + + ---------+ | Procedure Note | + ---------+ | Valeriy Bishop Conversion - 05/09/2019 3:45 PM PDT Patient Name: Mil SANCHEZ of | | : 1950 Performing Physician: Dawson Gibbs | | INDICATIONS C | | hest mack NSTEMI CONCLUSIONS 1. Overall left ventricular systolic [...] (A-L): 21.06 | | ml/m2LAAs A2C: 18.64 [id number] A-L A2C: 64.23 mlLALs A2C: 4.59 cmLAAs A4C: 15.59 | | [id number] A-L A4C: 39.58 mlLALs A4C: 5.21 cmAo Diam: 4.49 cmAV Cusp: 2.72 cmLA | | Diam: 4.65 cmLA/Ao: 1.03%FS: 33.35 %EDV(Teich): 141.36 mlEF(Teich): 61.50 | | %ESV(Teich): 54.41 mlIVSd: 1.30 cmIVSs: 2.02 cmLVIDd: 5.40 cmLVIDs: 3.59 | | cmLVPWd: 1.16 cmLVPWs: 1.66 cmSV(Teich): 86.95 mlD-E Excursion: 2.38 cmE-F | | Clear[place]: 0.04 m/sIVC diameter: 2.14 cmIVC collapse: 0.67 cmIVC % collapse: 66.27 | | %HR: 55.57 BPMAV maxP.39 mmHgAV meanP.27 mmHgAV Vmax: 1.16 m/Montrell Vmean: | | 0.67 m/Montrell VTI: 25.74 cmAVA Vmax: 3.59 cm2AVA (VTI): 3.61 [id number] Dopp: 1.99 | | l/akfm3XIDV Dopp: 5.09 l/minHR: 54.70 BPMLVOT maxP.68 mmHgLVOT [...] A Damien: 0.51 m/sTV | | Dec [place]: 3.41 m/s2TV Dec Time: 242.39 msTV E Damien: 0.82 m/sTV E/A Ratio: 1.61 | | Chopping Machine Operator: ASAuthenticated by: Dawson Gibbs [facility] Date/Time: 02-26-2014 14:43:32 | | IMPRESSION: 1. [...] | |D-E Excursion: 2.38 cm | |E-F [place]: 0.04 m/s | |IVC diameter: 2.14 cm [...] A Damien: 0.51 m/s | |TV Dec [place]: 3.41 m/s2 | |TV Dec Time: 242.39 ms | |TV E Damien: 0.82 m/s | |TV E/A Ratio: 1.61 | | | |Chopping Machine Operator: | |Authenticated by: Dawson Gibbs MD [...] EXTERNAL | | | | performed at [facility];[address] | | LAB | | | | [facility];[place], [place] | | | | | | [address] | | | | + + + [...] | | | | | | ACUTE HI RESULT READ | | | | | | BACK BY:CORINA Fofana AT | | | | | | 1235 BY AETesting | | | | | | performed at [facility];[address] | | | | | | [address];[place], [place] | | | | | | [address] | | | | + + + [...] EXTERNAL | | | | performed at [facility];[address] | | LAB | | | | [address] [facility];[place], [place] | | | | | | [address] | | | | + + + [...] | | patient was brought to the dental laboratory assistant in the fasting state. He was | | | prepped and draped in the usual sterile fashion for radial artery | | | approach. The radial artery was easily accessed with modified | | | Seldinger approach and a 5-[place] glide sheath was placed. A | | | 6-[place] JL-4 catheter was advanced under fluoroscopic [...] patient was brought to | | the dental laboratory assistant in the fasting state. He was prepped and draped in the usual sterile | | fashion for radial artery approach. The radial artery was easily accessed with modified | | Seldinger approach and a 5-[place] glide sheath was placed. A 6-[place] JL-4 catheter was | | advanced [...] EXTERNAL | | | | performed at [facility];[address] | | LAB | | | | [address];[place] | | | | | | [address] | | | | + + + [...] | | | | | | ACUTE HI CALLED TO | | | | | | AGUSTINA Goyal ON 3OP AT | | | | | | 1050 BY TRREAD BACK | | | | | | RESULTS VERIFIEDTesting | | | | | | performed at [facility] | | | | | | [facility];[place], [place] | | | | | | [address] | | | | + + + [...] EXTERNAL | | | | performed at [facility];[address] | | LAB | | | | [address];[place], [place] | | | | | | [address] | | | | + + + [...] (500), | | | | | | subeditor MARTINA PALMER ([id number]) | | | | | | on 02/26/2014 8:34:28 AM | | | | + + + + + + + + | Specimen | + + | | + + + + + | Narrative | Performed At | + + + | Historically converted procedure from [facility] Epic environment | EXTERNAL LAB | + [...]
--- OUTSIDE RECORDS SUMMARY | ~2019-09-27 | XMS | Encounter Summary ---
Demographics + + + | Address | [address] | | | [place] [address] | + + + | Home Phone [...] [place] | | | | | [address] | | + + + + + Care Team Providers + +------+ + | Care Public Relations Intern Name | Role | Phone | + +------+ + PCP | Unavailable | + +------+ + Encounter Details +--------+ + + + + | Date | Type | Department | Care Team | Description | +--------+ + + + + | 02/26/ | Hospital | [facility] | Zaheer Martins MD | NSTEMI (non-ST | | 2014 - | Encounter | MEDICAL [facility]ENTER | [address] | elevated myocardial | | | | CLINICAL DECISION | [place] [address] | infarction) (HCC); | | 02/27/ | | [address] | [phone] | Chest pain, | | 2013 | | [place], [place] | | unspecified; CPAP | | | | [phone] | | (continuous positive | | | | [phone] | | airway pressure) | | | [...] Summaries by Charo Guerrero MD at 02/27/14 4519 Author: Charo Guerrero MD Service: Hospitalist Author Type: Physician Filed: 02/27/14 1413 Date of Service: 02/27/14 1408 Status: Signed Presentation Designer: Charo Guerrero MD (Physician) [facility] Service: Hospitalist Discharge Summary Date of [...] past 3-4 days. He was seen at [facility] and his troponin w as 0.234 hence the transfer to [facility]. HOSPITAL COURSE: NSTEMI s/p cath by Dr. Gibbs. Pt had stent placed, cath report pending. Cont plavix for a year and ASA daily indefinitely. Ff-up with Dr. Gibbs or stitch bonding machine tender in [place]. Advised re weight loss and exercise. Pt [...] Component Value Units Date/Time Basic metabolic panel [[id number]] Collected:02/27/14539 Specimen Information:Blood Updated:02/27/14720 SODIUM 137 mmol/L POTASSIUM 4.2 mmol/L CHLORIDE 105 mmol/L CO2 27 mmol/L ANION GAP AGAP 9 mmol/L GLUCOSE 98 mg/dL BUN 16 mg/dL CREATININE 0.96 mg/dL BUN/CREAT 17 CALCIUM 9.3 mg/dL EGFR >60 mL/min/1.73m2 Lipid panel [[id number]] (Abnormal) Collected:02/27/14539 Specimen Information:Blood Updated:02/27/14720 CHOLESTEROL 150 mg/dL Triglycerides 182 (H) mg/dL HDL CHOL 34 (L) mg/dL LDL CALC 80 mg/dL Magnesium [[id number]] Collected:02/27/14539 Specimen Information:Blood Updated:02/27/14720 MAGNESIUM 2.1 mg/dL Phosphorus [[id number]] Collected:02/27/14539 Specimen Information:Blood Updated:02/27/14720 PHOSPHORUS 3.6 mg/dL CBC w/auto diff (reflex to manual) [[id number]] (Abnormal) Collected:02/27/14539 Specimen Information:Blood Updated:02/27/14657 WBC 4.2 [...] ABS 0.0 K/uL MORPHOLOGY POC ACT, arterial [[id number]] (Abnormal) Collected:02/26/14 2249 POC ACT 198 (H) seconds Updated:02/26/14 2303 CK MB [[id number]] (Abnormal) Collected:02/26/14 1725 MMB 5.4 (H) ng/mL Updated:02/26/14 1853 CK-MB Index 2.4 CPK [[id number]] Collected:02/26/14 172 Specimen Information:Blood Updated:02/26/14 1853 CPK 228 U/L Troponin I [[id number]] (Abnormal) Collected:02/26/14 1725 Specimen Information:Blood Updated:02/26/14 1853 TROPONIN I 1.05 (HH) ng/mL Troponin I [[id number]] (Abnormal) Collected:02/26/14 1151 Specimen Information:Blood Updated:02/26/14 1238 TROPONIN I 0.855 (HH) ng/mL CK MB [[id number]] (Abnormal) Collected:02/26/14 1151 MMB 5.9 (H) ng/mL Updated:02/26/14 1238 CK-MB Index 2.5 CPK [[id number]] Collected:02/26/14 1151 Specimen Information:Blood Updated:02/26/14 1238 CPK 239 U/L Troponin I [[id number]] (Abnormal) Collected:02/26/14 0956 Specimen Information:Blood Updated:02/26/14 1050 TROPONIN I 0.788 (HH) ng/mL CPK [[id number]] Collected:02/26/14 09 Specimen Information:Blood Updated:02/26/14 1050 CPK 257 U/L CK MB [[id number]] (Abnormal) Collected:02/26/14 0956 Specimen Information:Blood Updated:02/26/14 1050 MMB 5.3 (H) ng/mL CK-MB Index 2.1 Results No Results found for the last 72 hours. Disposition: home Condition: stable and improved Code Status: Full Code Discharge Instructions Basic metabolic panel Standing Status: Future Standing Exp. Date: 02/27/15 CBC w/manual diff Standing Status: Future Standing Exp. Date: 02/27/15 Follow up: Hodan Chacko MD [address], [address] [place] [address] In 1 week Dawson Gibbs MD [address] [facility] [address] [facility] Emergency Department [address] [facility] [address] Medication List As of 02/27/2014 2:09 PM [...] are the prescriptions that you need to scrap picker. You may get these medications from [...] Notes by Dawson Gibbs MD at 02/27/14 0823 Author: Dawson Gibbs MD Service: Cardiology Author Type: Physician Filed: 03/01/14 2159 Date of Service: 02/27/1446 Status: Signed Presentation Designer: Dawson Gibbs MD (Physician) Related Notes: Original Note by Dawson Gibbs MD (Physician) filed at 02/27/14 0851 [facility] Service: Cardiology/[facility] Progress Note RE: Joaquim Sanchez [...] happy to follow him here in the [facility]; but the fact he lives in [place], I gave him also the option to [...] 02/26/141623 Date of Service: 02/26/141623 Status: Signed Presentation Designer: ZANE Cesar (Massage Therapist) 02/26/14 1623 Massage Therapy Interventions Locations Back;Neck;Shoulder Massage Therapy Technique Effleurage;Petrissage;Guatemalan massage;Trigger point Response to treatment Decreased pain;Decreased muscle tension Goals Short Term Goal #1 Decreased muscle tension;Decreased pain;Increase comfort;Increased relax ation onver christopher Transaction, Provider Unknown - 02/26/2014 11:16 AM PDT Progress Notes by Joi Gonzalez RPH at 02/26/14 1116 Author: Joi Gonzalez RPH Service: (none) Author Type: Pharmacist Filed: 02/26/14 1116 Date of Service: 02/26/14 1116 Status: Signed Presentation Designer: Joi Gonzalez RPH (Pharmacist) Renal Dosing Monitoring: [...] Author: LOR Ron Service: (none) Author Type: Anesthetist Filed: 02/26/14 1031 Date of Service: 02/26/14 1028 Status: Signed Presentation Designer: LOR Ron (Anesthetist) 02/26/14 1025 Discharge Planning Evaluation Admitting Diagnosis NStemi Readmission No Living Arrangements Spouse/significant other (Mara Mejiaesell [phone]) Type of Residence Private residence House type House 2 story Steps to enter 2 Independent with ADL's Yes Independent with Mobility Yes Home Care Services No Mental Status Oriented Resources Transportation issues Yes Prescription Plan Yes Name of Pharmacy [facility] in [place] Previous home health equipment No Vascular access device No Ostomy/Drains/Appliances No Anticipated Disposition Facility Type Other (Comment) (Return Home) Met with: patient and his and discussed discharge planning, Pt is a 63 y.o., male who lives in [place]. Patient's PCP is: HODAN CHACKO Patient's insurance: [...] [place] | | | | | | [phone] | | | | | | | [...] + + | Historically converted procedure from [facility] environment | EXTERNAL LAB | + [...] | | LAB | | | | [address], | | | | | | [place] [address] | | | | + + + + + + | RED CELL | 4.33Comment: Testing | 4.20 - 5.70 | EXTERNAL | | | COUNT | performed at [facility], [address] | M/uL | LAB | | | | [address], | | | | | | [place] [address] | | | | + + + + + + | Hgb | 12.5 (L)Comment: Testing | 13.2 - 17.0 | EXTERNAL | | | | performed at [facility], [address] | g/dL | LAB | | | | [address], | | | | | | [place] [address] | | | | + + + + + + | Hematocrit, | 37.3 (L)Comment: Testing | 39.0 - 50.0 % | EXTERNAL | | | POC | performed at [facility], [address] | | LAB | | | | [address], | | | | | | [place] [address] | | | | + + + + + + | MCV | 86.1Comment: Testing | 80.0 - 100.0 fl | EXTERNAL | | | | performed at [facility], [address] | | LAB | | | | [address], | | | | | | [place] [address] | | | | + + + + + + | MCH | 28.9Comment: Testing | 27.0 - 34.0 pg | EXTERNAL | | | | performed at [facility], [address] | | LAB | | | | [address], | | | | | | [place] [address] | | | | + + + + + + | MCHC | 33.5Comment: Testing | 32.0 - 35.5 | EXTERNAL | | | | performed at [facility], [address] | g/dL | LAB | | | | [address], | | | | | | [place] [address] | | | | + + + + + + | RDW-CV | 47.7Comment: Testing | 37 - 53 fl | EXTERNAL | | | | performed at [facility], [address] | | LAB | | | | [address], | | | | | | [place] [address] | | | | + + + + + + | Platelet | 123 (L)Comment: Testing | 150 - 400 K/uL | EXTERNAL | | | Count | performed at [facility], [address] | | LAB | | | Plasma | [address], | | | | | | [place] [address] | | | | + + + + + + | MPV | 8.7Comment: Testing | fl | EXTERNAL | | | | performed at [facility], [address] | | LAB | | | | [address], | | | | | | [place] [address] | | | | + + + + + + | Differentia | AUTOMATEDComment: | | EXTERNAL | | | l Type | Testing performed at | | LAB | | | | [facility], [address] | | | | | | [place] | | | | | | [address] | | | | + + + + + + | % Segmented | 59.9Comment: Testing | % | EXTERNAL | | | | performed at [facility], [address] | | LAB | | | Neutrophils | [address], | | | | | | [place] [address] | | | | + + + + + + | % | 30.6Comment: Testing | % | EXTERNAL | | | Lymphocytes | performed at [facility], [address] | | LAB | | | | [address], | | | | | | [place], [place] [address] | | | | + + + + + + | % Monocytes | 7.2Comment: Testing | % | EXTERNAL | | | | performed at [facility], [address] | | LAB | | | | [address], | | | | | | [place], [place] [address] | | | | + + + + + + | % | 1.9Comment: Testing | % | EXTERNAL | | | Eosinophils | performed at [facility], [address] | | LAB | | | | [address], | | | | | | [place] [address] | | | | + + + + + + | % Basophils | 0.4Comment: Testing | % | EXTERNAL | | | | performed at [facility], [address] | | LAB | | | | [address], | | | | | | [place] [address] | | | | + + + + + + | Absolute | 2.5Comment: Testing | 1.9 - 7.4 K/uL | EXTERNAL | | | Segmented | performed at [facility], [address] | | LAB | | | Neutrophils | [address], | | | | | | [place] [address] | | | | + + + + + + | Absolute | 1.3Comment: Testing | 1.0 - 3.9 K/uL | EXTERNAL | | | Lymphocytes | performed at [facility], [address] | | LAB | | | | [address], | | | | | | [place] [address] | | | | + + + + + + | Absolute | 0.3Comment: Testing | 0 - 0.8 K/uL | EXTERNAL | | | Monocytes | performed at [facility], [address] | | LAB | | | | [address], | | | | | | [place] [address] | | | | + + + + + + | Absolute | 0.1Comment: Testing | 0 - 0.5 K/uL | EXTERNAL | | | Eosinophils | performed at [facility], [address] | | LAB | | | | [address], | | | | | | [place] [address] | | | | + + + + + + | Absolute | 0.0Comment: Testing | 0 - 0.1 K/uL | EXTERNAL | | | Basophils | performed at [facility], [address] | | LAB | | | [address], | | | | | | [place] [address] | | | | + + + + + + | RBC | Comment: 1+ | | EXTERNAL | | | Morphology | AnisocytosisTesting | | LAB | | | | performed at [facility], [address] | | | | | | [address], | | | | | | [place] [address] | | | | + + + [...] EXTERNAL | | | | performed at [facility], [address] | | LAB | | | | [address], | | | | | | [place] [address] | | | | + + + [...] EXTERNAL | | | | performed at [facility], [address] | | LAB | | | | [address], | | | | | | [place] [address] | | | | + + + [...] | | | | | [place] [address] | | | | + + + + + + | Triglycerid | 182 (H)Comment: Testing | mg/dL | EXTERNAL | | | es | performed at [facility], [address] | | LAB | | | | [address], | | | | | | [place] [address] | | | | + + + + + + | HDL | 34 (L)Comment: Testing | mg/dL | EXTERNAL | | | | performed at [facility], [address] | | LAB | | | | [address], | | | | | | [place] [address] | | | | + + + + + + | LDL | 80Comment: Testing | mg/dL | EXTERNAL | | | Cholesterol | performed at [facility], [address] | | LAB | | | , | [address], | | | | | Calculated, | [place] [address] | | | | | External | [...] | | | | | [place] [address] | | | | + + + + + + | K | 4.2Comment: Testing | 3.5 - 4.9 | EXTERNAL | | | | performed at [facility], [address] | mmol/L | LAB | | | | [address], | | | | | | [place] [address] | | | | + + + + + + | Cl | 105Comment: Testing | 99 - 109 mmol/L | EXTERNAL | | | | performed at [facility], [address] | | LAB | | | | [address], | | | | | | [place] [address] | | | | + + + + + + | CO2 | 27Comment: Testing | 23 - 32 mmol/L | EXTERNAL | | | | performed at [facility], [address] | | LAB | | | | [address], | | | | | | [place] [address] | | | | + + + + + + | Anion Gap | 9Comment: Testing | 5 - 20 mmol/L | EXTERNAL | | | | performed at [facility], [address] | | LAB | | | | [address], | | | | | | [place], [place] [address] | | | | + + + + + + | Glucose, | 98Comment: Testing | 65 - 99 mg/dL | EXTERNAL | | | Fasting | performed at [facility], [address] | | LAB | | | | [address], | | | | | | [place], [place] [address] | | | | + + + + + + | BUN | 16Comment: Testing | 8 - 25 mg/dL | EXTERNAL | | | | performed at [facility], [address] | | LAB | | | | [address], | | | | | | [place] [address] | | | | + + + + + + | Creatinine | 0.96Comment: Testing | 0.70 - 1.30 | EXTERNAL | | | | performed at [facility], [address] | mg/dL | LAB | | | | [address], | | | | | | [place] [address] | | | | + + + + + + | BUN/Creatin | 17Comment: Testing | | EXTERNAL | | | ine Ratio | performed at [facility], [address] | | LAB | | | | [address], | | | | | | [place] [address] | | | | + + + + + + | Calcium | 9.3Comment: Testing | 8.5 - 10.2 | EXTERNAL | | | | performed at [facility], [address] | mg/dL | LAB | | | | [address], | | | | | | [place] [address] | | | | + + + [...] | | | | | [place] [address] | | | | + + + [...] + + | [facility] | EXTERNAL LAB | + [...] | | | Clotting | performed at [facility];[address] | seconds | LAB | | | time, POC | [address];[place], [place] | | | | | | [address] | | | | + + + [...] EXTERNAL | | | | performed at [facility];[address] | | LAB | | | | [facility];[place], [place] | | | | | | [address] | | | | + + + [...] | | | | | | ACUTE [place] RESULT READ | | | | | | BACK BY:LUISITO Riley ON 3OP | | | | | | AT 1852 BY RICO | | | | | | [id number] performed | | | | | | at [facility];[address] [place] [address] | | | | | | [facility];[place] [address] | | | | + + + [...] EXTERNAL | | | | performed at [facility];8 | | LAB | | | | [facility], [place] | | | | | | [address] | | | | + + + [...] 86.95 ml D-E Excursion: 2.38 cm E-F [facility]: 0.04 | | | m/s IVC diameter: [...] TV A Damien: 0.51 m/s TV Dec [facility]: | | | 3.41 m/s2 TV Dec Time: 242.39 ms TV E Damien: 0.82 m/s TV | | | E/A Ratio: 1.61 Brass Cleaner: Authenticated by: Dawson | | | Sai [...] (A-L): 21.06 | | ml/m2LAAs A2C: 18.64 [id number] A-L A2C: 64.23 mlLALs A2C: 4.59 cmLAAs A4C: 15.59 | | [id number] A-L A4C: 39.58 mlLALs A4C: 5.21 cmAo Diam: 4.49 cmAV Cusp: 2.72 cmLA | | Diam: 4.65 cmLA/Ao: 1.03%FS: 33.35 %EDV(Teich): 141.36 mlEF(Teich): 61.50 | | %ESV(Teich): 54.41 mlIVSd: 1.30 cmIVSs: 2.02 cmLVIDd: 5.40 cmLVIDs: 3.59 | | cmLVPWd: 1.16 cmLVPWs: 1.66 cmSV(Teich): 86.95 mlD-E Excursion: 2.38 cmE-F | | [facility]: 0.04 m/sIVC diameter: 2.14 cmIVC collapse: 0.67 cmIVC % collapse: 66.27 | | %HR: 55.57 BPMAV maxP.39 mmHgAV meanP.27 mmHgAV Vmax: 1.16 m/Montrell Vmean: | | 0.67 m/Montrell VTI: 25.74 cmAVA Vmax: 3.59 cm2AVA (VTI): 3.61 [id number] Dopp: 1.99 | | l/[id number] Dopp: 5.09 l/minHR: 54.70 BPMLVOT maxP.68 mmHgLVOT [...] A Damien: 0.51 m/sTV | | Dec [facility]: 3.41 m/s2TV Dec Time: 242.39 msTV E Damien: 0.82 m/sTV E/A Ratio: 1.61 | | Brass Cleaner: ASAuthenticated by: [facility] Date/Time: 02-26-2014 14:43:32 | | IMPRESSION: [...] | |D-E Excursion: 2.38 cm | |E-F [facility]: 0.04 m/s | |IVC diameter: 2.14 cm [...] A Damien: 0.51 m/s | |TV Dec [facility]: 3.41 m/s2 | |TV Dec Time: 242.39 ms | |TV E Damien: 0.82 m/s | |TV E/A Ratio: 1.61 | | | |Brass Cleaner: | |Authenticated by: Dawson Gibbs MD | [...] EXTERNAL | | | | performed at [facility];[address] | | LAB | | | | [facility];[place], [place] | | | | | | [address] | | | | + + + [...] | | | | | | ACUTE [place] RESULT READ | | | | | | BACK BY:CORINA Fofana AT | | | | | | 1235 BY AETesting | | | | | | performed at [facility];[address] | | | | | | [address];[place], [place] | | | | | | [address] | | | | + + + [...] EXTERNAL | | | | performed at [facility];[address] | | LAB | | | | [address] [facility];[place], [place] | | | | | | [address] | | | | + + + [...] | patient was brought to the lab intern in the fasting state. He was | | | prepped and draped in the usual sterile fashion for radial artery | | | approach. The radial artery was easily accessed with modified | | | Seldinger approach and a 5-Jamaican glide sheath was placed. A | | | 6-Jamaican JL-4 catheter was advanced under fluoroscopic guidance [...] was brought to | | the lab intern in the fasting state. He was prepped and draped in the usual sterile | | fashion for radial artery approach. The radial artery was easily accessed with modified | | Seldinger approach and a 5-Jamaican glide sheath was placed. A 6-Jamaican JL-4 catheter was | | advanced under [...] EXTERNAL | | | | performed at [facility];[address] | | LAB | | | | [address];[place] | | | | | | [address] | | | | + + + [...] | | | | | | ACUTE IL CALLED TO | | | | | | AGUSTINA Goyal ON 3OP AT | | | | | | 1050 BY TRREAD BACK | | | | | | RESULTS VERIFIEDTesting | | | | | | performed at [facility] | | | | | | [facility];[place], [place] | | | | | | [address] | | | | + + + [...] EXTERNAL | | | | performed at [facility];[address] | | LAB | | | | [address];[place], [place] | | | | | | [address] | | | | + + + [...] (500), | | | | | | general expeditor MARTINA PALMER (8) | | | | | | on 02/26/2014 8:34:28 AM | | | | + + + + + + + + | Specimen | + + | | + + + + + | Narrative | Performed At | + + + | Historically converted procedure from [facility] Epic environment | EXTERNAL LAB | + [...]
--- OUTSIDE RECORDS SUMMARY | ~2019-09-27 | XMS | Encounter Summary ---
Demographics + + + | Address | [address] | | | [place] [address] | + + + | Home Phone [...] [place] | | | | | [address] | | + + + + + Care Team Providers + +------+ + | Care Skid Road Worker Name | Role | Phone | + +------+ + | Earle Chacko MD | PCP | | + +------+ + Encounter Details +--------+ + + + + | Date | Type | Department | Care Team | Description | +--------+ + + + + | 04/23/ | Hospital | [facility] | Miguel Zuniga | Diffuse large B-cell | | 2017 | Encounter | [facility] | MD Gerber [address] | lymphoma of | | | | ONCOLOGY CLINIC [address] | [address] [place] | intra-abdominal | | | | [address] [place] | [place] [address] | lymph nodes (HCC) | | | | [place] [address] | [phone] | (Primary Dx) | | | | [phone] | | | +--------+ + + + [...] erent from the original. Hem-Onc Progress Note [facility] Pt. Name/Age/: Gerber Galindo Jr. 66 y.o. 1950 Med. Record Number: [id number] Date of admission: 04/23/2017 Assessment and plan: [...] continuing on a program of massage through [place] and physical the rapy there. He wonders [...] Electronically signed by: Miguel Zuniga, 04/23/2017 9:29 MERGED WITH [facility] TIME SPENT 25 MIN. > 50% AT BEDSIDE, WITH FAMILY/PATIENT IN CARE AND GORE STITCHER ON UNIT AND CO ORDINATION OF CARE Portions of this chart may have been created with [email or web address] voice recognition software. Occasi onal wrong-word or sound-alike substitutions may have occurred due to the inherent valencia itations of voice recognition software. Please read the chart carefully and recognize, using context, where these substitutions have occurred. Mckayla Reardon AS400 ANALYST - 04/23/2017 9:22 AM PDTREEuroffice O F SYSTEMS Constitutional: Denies fatigue. 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
--- OUTSIDE RECORDS SUMMARY | ~2019-09-27 | XMS | Encounter Summary ---
Demographics + + + | Address | [address] | | | [place] [address] | + + + | Home Phone [...] [place] | | | | | [address] | | + + + + + Care Team Providers + +------+ + | Care Salesperson Parts Name | Role | Phone | + [...] | | Lymphedema | Mohamud, | [address] | | | | | of left | Gerber Benson, | [place], | | | | | lower | MD [address] | [place] [address] | | | | | extremity | [address] | Phone: | | | | | Procedures | [place], | [phone] | | | | | [place] Abdomen | [place] [address] | Fax: | | | | | Pelvis w | Phone: | [phone] | | | | | Contrast | [phone] | | | | | | | Fax: | | | | | | | [phone] | | +--------+--------+ + + + + [...] | | Lymphedema | Mohamud, | [address] | | | | | of left | Gerber Benson, | [place], | | | | | lower | MD [address] | [place] [address] | | | | | extremity | [address] | Phone: | | | | | Procedures | [place], | [phone] | | | | | CT Abdomen | [place] [address] | Fax: | | | | | Pelvis w | Phone: | [phone] | | | | | Contrast | [phone] | | | | | | | Fax: | | | | | | | [phone] | | +--------+--------+ + + + + Encounter Details +--------+ + + + + | Date | Type | Department | Care Team | Description | +--------+ + + + + | 04/18/ | Hospital | [facility] | Mohamud, | Lymphedema of left | | 2017 | Encounter | MED [facility] [address] | Gerber Benson MD [address] | lower extremity | | | | [place], | [address] [place] | | | | | [place] [address] | [place] [address] | | | | | [phone] | [phone] | | | | | | | [...] [place] | | | | | | [address] | | | | | | | [...] + + | Performing | Address | City/State/[facility] | Phone Number | | Organization | [...]
--- OUTSIDE RECORDS SUMMARY | ~2019-09-27 | XMS | Clinical Summary ---
Demographics + + + | Address | [address] | | | [place] [address] | + + + | Home Phone | | + + + | Preferred Language | Unknown | + + + | Marital Status | Unknown | + + + | Anabaptist Affiliation | Unknown | + + + [...] Team Providers + +------+ + | Care Instant Potato Processing Supervisor Name | Role | Phone | + +------+ + PCP | Unavailable | + +------+ + Source Comments JOSE is fully live on both [facility] Ambulatory and [facility] InPatient.[facility] Allergies Not on File Medications Not on [...]
--- OUTSIDE RECORDS SUMMARY | ~2019-09-27 | XMS | Encounter Summary ---
Demographics + + + | Address | [address] | | | [place] [address] | + + + | Home Phone [...] [place] | | | | | [address] | | + + + + + Care Team Providers + +------+ + | Care Spoon Maker Name | Role | Phone | [...] large b-cell | Gerber Benson, | [address] | | | | | lymphoma, | MD [address] | [place], | | | | | intra-abdomi | [address] | [place] [address] | | | | | nal lymph | [place], | Phone: | | | | | nodes (HCC) | [place] [address] | [phone] | | | | | Procedures | Phone: | Fax: | | | | | [place] | [phone] | [phone] | | | | | RITUXIMAB | Fax: | | | | | | INJECTION, | [phone] | | | | | | 100 MG TN | | | | | | | MEPERIDINE | | | | | | | HYDROCHL | | | | | | | /100 MG TN | | | | | | | IV INFUSION, | | | | | | | HYDRATION, | | | | | | | 31-60 MIN | | | | | | | TN IV | | | | | | | INFUSION, | | | | | | | HYDRATION, | | | | | | | EA ADD HOUR | | | | | | | TN | | | | | | | ONDANSETRON | | | | | | | HCL | | | | | | | INJECTION, 1 | | | | | | | MG TN | | | | | | | DEXAMETHASON | | | | | | | E SODIUM | | | | | | | PHOS, 1 MG | | | | | | | TN | | | | | | | FOSAPREPITAN | | | | | | | T INJECTION, | | | | | | | 1 MG TN | | | | | | | PREDNISONE | | | | | | | IR OR DR | | | | | | | ORAL 1MG TN | | | | | | | | | | | | | | CYCLOPHOSPHA | | | | | | | MIDE 100 MG | | | | | | | INJ TN | | | | | | | DOXORUBICIN | | | | | | | HCL | | | | | | | INJECTION, | | | | | | | 10 MG TN | | | | | | | VINCRISTINE | | | | | | | SULFATE 1 MG | | | | | | | INJ TN | | | | | | | DIPHENHYDRAM | | | | | | | INE HCL | | | | | | | INJECTIO, 50 | | | | | | | MG TN | | | | | | | METHYLPREDNI | | | | | | | SOLONE | | | | | | | INJECTION, | | | | | | | 125 MG TN | | | | | | | DEXAMETHASON | | | | | | | E SODIUM | | | | | | | PHOS, 1 MG | | | | | | | TN | | | | | | | INJECTION, | | | | | | | PEGFILGRASTI | | | | | | | M 6MG TN | | | | | | | NORMAL | | | | | | | SALINE | | | | | | | SOLUTION | | | | | | | INFUS, 500 | | | | | | | ML TN | | | | | | | NORMAL | | | | | | | SALINE | | | | | | | SOLUTION | | | | | | | INFUS, 250 | | | | | | | ML TN | | | | | | | STERILE | | | | | | | WATER/SALINE | | | | | | | , 10 ML TN | | | | | | | CHEMOTHER, | | | | | | | IV PUSH,EA | | | | | | | ADD DRUG TN | | | | | | | CHEMOTHER, | | | | | | | IV INFUSION, | | | | | | | 1 HR TN | | | | | | | CHEMOTHER, | | | | | | | IV INFUSION, | | | | | | | EA HR TN | | | | | | | CHEMOTHER,NO | | | | | | | N-HORMONE | | | | | | | ANTI-NEOPL, | | | | | | | SUB-Q/IM TN | | | | | | | [...] + + + + | 11/07/ | [facility] | [facility] | Mohamud, | Diffuse large B-cell | | 2017 | Encounter | MED CTR CHEMO | Gerber Benson MD [address] | lymphoma of | | | | INFUSION [address] | [address] [place] | intra-abdominal | | | | [address] [place], | [place] [address] | lymph nodes (HCC) | | | | [place] [address] | [phone] | (Primary Dx); | | | | [phone] | | Lymphedema of left | | [...] [place] | | | | | | [address] | | | | | | | [...] + | [facility] | [address] | [place] | [phone] | | [facility] | | [address] | | | - LABORATORY | | [...] | mL/min/1.73m2 | YUE | | | MOZAMBICAN | RATE,ESTIMATED | | MEDICAL | | | | mL/min/1.17x7Zzpx than | | CENTER - | | [...] + | [facility] | [address] | [place] | [phone] | | [facility] | | [address] | | | - LABORATORY | | [...] [address] | [place] | [phone] | | [facility] | | [address] | | | - LABORATORY | | [...]
--- OUTSIDE RECORDS SUMMARY | ~2019-09-27 | XMS | Encounter Summary ---
Demographics + + + | Address | [address] | | | [place] [address] | + + + | Home Phone [...] [place] | | | | | [address] | | + + + + + Care Team Providers + +------+ + | Care Body Specialist Name | Role | Phone | [...] | +--------+ + + + + | 12/05/ | Hospital | [facility] | [facility], | Diffuse large B-cell | | 2017 | Encounter | MED CTR MEDICAL | Joaquim Benson MD [address] | lymphoma of | | | | ONCOLOGY CLINIC [address] | [address] [place] | intra-abdominal | | | | [address] [place] | [place] [address] | lymph nodes (HCC) | | | | [place] [address] | [phone] | (Primary Dx); | | | | [phone] | | Lymphedema of left | | [...] + + + | Blood Pressure | 139/82 | 12/05/2016 1:19 PM | | | | | PDT | | + + + + + | Pulse | 62 | 12/05/2016 1:19 PM | | | | | PDT | | + + + + + | Temperature | 36.3 C (97.4 F) | 12/05/2016 1:19 PM | | | | | PDT | | + + + + + | Respiratory Rate | 18 | 12/05/2016 1:19 PM | | | | | PDT | | + + + + + | Oxygen Saturation | 95% | 12/05/2016 1:19 PM | | | | | PDT | | + + + + + | Inhaled Oxygen | - | - | | | Concentration | | | | + + + + + | Weight | 144.5 kg (318 lb 9.6 | 12/05/2016 1:19 PM | | | | oz) | PDT | | + + + + + | Height | - | - | | + + + + + | Body Mass Index | 40.91 | 07/18/2016 4:16 PM | | | [...] + + + +---------+ + + | carbidopa-levodopa | | | 0 | 12/05/19 | | | (SINEMET) 10-100 mg | | | | 17 | 7 | | per tablet | | | | | | [...] encounter Progress Notes Joaquim Tejeda MD - 12/05/2016 1:04 PM PDTFormatting of this note might be differe nt from the original. Hematology/Oncology Progress Note [facility] [place] Pt. Name/Age/: Joaquim Sanchez Jr. 66 y.o. 1950 Med. Record Number: [id number] Date of admission: 12/05/2016 Identifying Statement: Joaquim Sanchez Jr. is a 66 y.o. male from [address] [address] with Mixed Diffuse Large B-Cell/Follicular Lymphoma. The [...] node biopsy ([facility]) June 242015. Specimen #[id number] ([facility]); Diffuse Large B-Cell lymph raciel, germinal [...] 04, 2016. 10. CT Abdomen[facility]elvis at [facility] on September 12, 2016; Positive [...] (PRIMA protocol). 14. Repeat CT scan at [place], [place] on December 01, [address] [...] Plan Joaquim Atkinson" returned to clinic on 12/05/2016 with his , ana Terry or follow-up of his Diffuse Large B-Cell Lymphoma, at least Stage III. Interval history is notable for the fact that "Rios" stopped cytotoxic chemotherapy early and crossed over to maintenance rituxumab November 07, 2016. 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 Review of systems is notable for: Fatigue is better, nausea (without emesis) is better, night sweats have resolved, dysphagia has resolved, dyspepsia has resolved, numbness in the fingers and toes which had progressed in the lower extremities to include painful dysesthesias is better, dysuria is unchanged, Insomnia is better, decreased mental acuity is better. The separation of the toenails from t he nailbeds culminated in these nails being extracted by his material handling equipment stevedore. Headaches have reso lved, decreased visual acuity is better. Chest pain and palpitations, and dyspnea on exertio n are better. complaints of rhinorrhea and epiphora are unchanged. Clinical exam is notable for stable left lower extremity lymphedema. Laboratory exam is notable for the absence of tzqjrzi-bcylw-gcnrhmodpxx. Imaging from [facility], December 01, 2016 was reviewed with the patient; there is a persistent, although somewhat "flatter" soft tissue asymmetry in the left iliac lymph node chain. Assessment; Mixed diffuse large B-cell/follicluar lymphoma. Plan; Extended 25 minute office encounter with Rios and Mara. I recommended ongoing m aintenance rituximab every two months, will follow-up imaging of the left iliac lymph node r egion. Since Rios cannot tolerate prolonged positioning for PET/CT scan, we will rely on pr ogress CT scan to assess whether or not the soft tissue abnormality in the left iliac lymph node region represents treated or active cancer. Lymphedema of left lower extremity Review of Systems: Constitutional: Reports energy level is better. Denies high fevers, shaking chills, anorexi a, nausea, vomiting, weight loss, or night sweats. [...] or dysuria. Musculoskeletal: Reports joint aches generalized- mainly in knees and mostly in left leg du e to swelling. 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 Denies headache or visual changes. Endocrine: Reports left leg swelling continues intermittently, especially if he does anythi ng up on his feet. Denies heat/cold intolerance. Hematologic: Denies spontaneous bruising or bleeding. Integumentary: Denies rash, wounds or other skin concerns. Pain: Denies pain. Note: Here for follow up to review CT scan- 12/01/16. My chart: active Scheduled Medications: Current Outpatient Prescriptions Medication Sig Dispense Refill aspirin 81 mg EC tablet Take 162 mg by mouth Daily. carbidopa-levodopa (SINEMET) 10-100 mg per tablet carvedilol (COREG) 25 mg tablet Take 25 [...] mg capsule Take 20 mg by mouth Daily. ondansetron (ZOFRAN) 8 MG tablet Take 1 [...] left lower extremity Objectives: Temp: 36.3 C (97.4 F) BP: 139/82 mmHg Pulse: 62 Resp: 18 SpO2: 95 % on Min/Max Temp past 24 hours:No Data Recorded No intake or output data in the 24 hours ending 12/07/16 1557 Wt. Admission: Weight: (!) 144.516 kg (318 lb 9.6 oz) Wt. Current: Weight: (!) 144.516 kg (318 lb 9.6 oz) Wt Readings from Last 3 Encounters: 12/05/16 144.516 kg (318 lb 9.6 oz) 11/07/16 140.887 kg (310 lb 9.6 oz) 10/26/16 139.935 kg (308 lb 8 oz) Physical Exam: General: The patient is [...] Luque., Andie Menezes., Michael Trejo., Michael, TDusty., Dara EChristianT., Fatoumata, P .P.: Toxicity And Response [...] JOAQUIM SANCHEZ JR. ( ) as of 12/07/2016 15:58 Ref. Range 11/07/2016 08:17 WBC Latest Ref [...] with Differential STAT, ONE TIME, Sun11/07/16 at 0818, For 1 occurrence OrderHistory Nursing [...] injection 20 mg 20 mg, Intravenous, ONCE, Sun11/07/16 at 0945, For 1 dose Prior to [...] Stop infusion, activate code blue and notify OrderHisto ry JOAQUIM TEJEDA MD Portions of this chart may have been created with OpTrip voice recognition software. Occasi onal wrong-word or [...] | | | | | | [facility] | | | | | | [phone] | | | | | | | [...]
--- OUTSIDE RECORDS SUMMARY | ~2019-09-27 | XMS | Encounter Summary ---
Demographics + + + | Address | [address] | | | [place] [address] | + + + | Home Phone | | + + + | Preferred Language | Unknown | + + + | Marital Status | | + + + | Hindu Affiliation | 1013 | + + + [...] [place] | | | | | [address] | | + + + + + Care Team Providers + +------+ + | Care Toy Consultant Name | Role | Phone | [...] + + | 07/20/ | Telephone | [facility] | Patricia Mercado, | Chemotherapy | | 2015 | | MED CTR CHEMO | RN | | | | | INFUSION [address] | | | | | | [place], | | | | | | [place] [address] | | | | | | [phone] | | | +--------+ + + + [...] | | | | | [place], [place] | | | | | | [address] | | | | | | | | +--------+---------+ + + + documented as of this encounter Visit Diagnoses Not on filedocumented in this encounter"
--- OUTSIDE RECORDS SUMMARY | ~2019-09-27 | XMS | Encounter Summary ---
Demographics + + + | Address | [address] | | | [place] [address] | + + + | Home Phone [...] [place] | | | | | [address] | | + + + + + Care Team Providers + +------+ + | Care Lead Android Developer Name | Role | Phone | [...] | Primary | Nikhil, | [address] | | | | | cutaneous | Joaquim Benson, | [place], | | | | | diffuse | MD [address] | [place] | | | | | large cell | [address] | [address] | | | | | B-cell | [place], | Phone: | | | | | lymphoma | [place] [address] | [phone] | | | | | (HCC) | Phone: | Fax: | | | | | Procedures | [phone] | [phone] | | | | | ECHO | Fax: | | | | | | Complete | [phone] | | +--------+--------+ + + + + [...] + + | 07/21/ | Hospital | [facility] | Nikhil, | Primary cutaneous | | 2016 | Encounter | MED CTR ECHO [address] | Joaquim Benson MD [address] | diffuse large cell | | | | [place] | [address] [place] | B-cell lymphoma | | | | [place] [address] | [place] [address] | ([facility]) | | | | [phone] | [phone] | | | | | | | [...] [place] | | | | | | [address] | | | | | | | [...] Number JOAQUIM Patient Number | | | [id number] Date of Study 07/21/2016 Visit Number | | | [id number] Referring Physician | | | NIKHIL Benson Number Date of 1950 | | | Ammonia Operator SUNSHINE ROSA RDCS Age | | | 66 year(s) Interpreting YAMEL DYKES MD | | | Photoengraving Proofer Apprentice Gender | | | Male Nurse Procedure [...] Index: 17 mL/m^2 | | | EF Svmcdtqrl51% Left Ventricle Diastolic Dimension: | | | [...] | LA Vol/BSA Index: 17 mL/m^2 EF Nwkdsmukc89% | | | | | | Left [...] Room Number JOAQUIM | | Patient Number [id number] Date of Study 07/21/2016 Visit Number | | [id number] Referring Physician NIKHIL Benson | | Number Date of 1950 Ammonia Operator SUNSHINE ROSA RAMONA Age | | 66 year(s) Interpreting YAMEL DYKES MD | | Photoengraving Proofer Apprentice Gender Male NurseProcedureType of Study TTE | [...] Vol/BSA Index: | | 17 mL/m^2 EF Ksudtvlfd14% Left Ventricle Diastolic Dimension: | | 4.8 [...] | LA Vol/BSA Index: 17 mL/m^2 EF Hlrlrzmre65% | | | | Left Ventricle | [...]
--- OUTSIDE RECORDS SUMMARY | ~2019-09-27 | XMS | Encounter Summary ---
Demographics + + + | Address | [address] | | | [place] [address] | + + + | Home Phone [...] [place] | | | | | [address] | | + + + + + Care Team Providers + +------+ + | Care Supervisor Logging Name | Role | Phone | + [...] + + | 10/26/ | Hospital | [facility] | [facility], | Lymphedema of left | | 2017 | Encounter | MED CTR MEDICAL | Joaquim Benson MD [address] | lower extremity | | | | ONCOLOGY CLINIC [address] | [address] [place] | (Primary Dx); | | | | [address] [place] | [place] [address] | Diffuse large B-cell | | | | [place] [address] | [phone] | lymphoma of | | | | [phone] | | intra-abdominal | | | | [...] nt from the original. Hematology/Oncology Progress Note [place], [place] Pt. Name/Age/: Joaquim Sanchez Jr. 66 y.o. 1950 Med. Record Number: [id number] Date of admission: 10/26/2016 Identifying Statement: Joaquim Sanchez Jr. is a 66 y.o. male from [address] [address] with Diffuse Large B-Cell Lymphoma. The patient [...] lower extremity. CT abdomen/Pelvis with contrast 2016 ([facility]). Ex tensive periaortic lymphadenopathy (1.8 cm and 2.1 cm respectively), extensive adenopathy ex tending out along the left common iliac artery and encasing the left external iliac artery ( 4.4 cm) with compromise of the left external iliac vein. 2. Open laparotomy with LEFT ileal retroperitoneal lymph node biopsy ([place], [facility]) June 242015. Specimen #[id number] ([facility]); Diffuse Large B-Cell lymph [...] 04, 2016. 10. CT Abdom[facility]vis at [facility] on September 12, 2016; Positive Response when [...] output data in the 24 hours ending 10/26/16 1929 Wt. Admission: Weight: (!) 139.935 kg (308 [...] Ma., Rebel, R.H., Andie Menezes., Michael Trejo., Micahel, TDusty., Dara, EChristianT., Fatoumata, P .P.: Toxicity And Response [...] this chart may have been created with ImmusanT recognition software. Occasi onal wrong-word or sound-alike [...] [place] | | | | | | [id number] | | | | | | | [...] 156 | 91 - 180 U/L | [facility] [...] [address] | [place] | [phone] | | [facility] | | [address] | | | - LABORATORY | | [...] 6 | 3 - 16 mmol/L | [facility] | | | | | [...] mL/min/1.73m2 | [facility] | | | [place] | RATE,ESTIMATED | | MEDICAL | | | | mL/min/1.45d6Dlqt than | | CENTER - | | [...] + | [facility] | [address] | [place] | [phone] | | [facility] | | [address] | | | - LABORATORY | | [...] (LL)Comment: | 4.0 - 11.0 K/uL | [facility] | | | | Critical Result called [...] | | Neutrophils | | K/uL | . YUE | [...] ST. | [address] | [place], [place] | [phone] | | [facility] | | [address] | | | - LABORATORY | | [...]
--- OUTSIDE RECORDS SUMMARY | ~2019-09-27 | XMS | Encounter Summary ---
Demographics + + + | Address | [address] | | | [place] [address] | + + + | Home Phone [...] [place] | | | | | [address] | | + + + + + Care Team Providers + +------+ + | Care Supervisor Assembling Name | Role | Phone | + [...] | | | | large B-cell | [facility] | | | | | lymphoma of | MD Gerber | [address] | | | | | | [address] | | | | | intra-abdomi | [address] [place] | [place], [place] | | | | | nal lymph | [place], [place] | [address] | | | | | nodes (HCC) | [address] | Phone: | | | | | Procedures | Phone: | [phone] | | | | | CT Chest | [phone] | Fax: | | | | | Abdomen | Fax: | [phone] | | | | | Pelvis w | [phone] | | | | | | Contrast [...] + + | 07/15/ | Hospital | [facility] | Miguel Zuniga | Diffuse large B-cell | | 2018 | Encounter | MED CTR MEDICAL | MD Gerber [address] | lymphoma of | | | | ONCOLOGY CLINIC [address] | [address] [place] | intra-abdominal | | | | [address] [place] | [place] [address] | lymph nodes (HCC) | | | | [place] [address] | [phone] | (Primary Dx) | | | | [phone] | | | +--------+ + + + [...] erent from the original. Hem-Onc Progress Note [facility] Pt. Name/Age/: Gerber Galindo Jr. 68 y.o. 1950 Med. Record Number: [id number] Date of admission: 07/15/2018 Assessment and plan: 1. 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 Discussion concerning plans for follow-up surveillance monitoring to include recheck CT sca n. This can be scheduled at [facility] close to where patient lives for [facility]. Gen. discussion today concerning imaging is a [...] Electronically signed by: Miguel Zuniga, 07/15/2018 10:05 [facility] TIME SPENT 25 MIN. > 50% AT BEDSIDE, WITH FAMILY/PATIENT IN CARE AND SURFACE BOSS ON UNIT AND CO ORDINATION OF CARE Portions of this chart may have been created with Evergram voice recognition software. Occasi onal wrong-word or sound-alike substitutions may have occurred due to the inherent valencia itations of voice recognition software. Please read the chart carefully and recognize, using context, where these substitutions have occurred. Mckayla Reardon, [facility] - 07/15/2018 9:36 AM PDTREVIEW O F [...] | | | | | [place] | | | | | | [id number] | | | | | | | [...]
--- OUTSIDE RECORDS SUMMARY | ~2019-09-27 | XMS | Encounter Summary ---
Demographics + + + | Address | [address] | | | [place] [address] | + + + | Home Phone [...] [place] | | | | | [address] | | + + + + + Care Team Providers + +------+ + | Care Ordained Minister Name | Role | Phone | + [...] large b-cell | Gerber Benson, | [address] [place] | | | | | lymphoma, | MD [address] | [place], | | | | | intra-abdomi | [address] | [place] [address] | | | | | nal lymph | [place], | Phone: | | | | | nodes (HCC) | [place] [address] | [phone] | | | | | Procedures | Phone: | Fax: | | | | | [place] | [phone] | [phone] | | | | | RITUXIMAB | Fax: | | | | | | INJECTION, | [phone] | | | | | | 100 MG [place] | | | | | | | MEPERIDINE | | | | | | | HYDROCHL | | | | | | | /100 MG [place] | | | | | | | IV INFUSION, | | | | | | | HYDRATION, | | | | | | | 31-60 MIN | | | | | | | TX IV | | | | | | | INFUSION, | | | | | | | HYDRATION, | | | | | | | EA ADD HOUR | | | | | | | [place] | | | | | | | ONDANSETRON | | | | | | | HCL | | | | | | | INJECTION, 1 | | | | | | | MG [place] | | | | | | | DEXAMETHASON | | | | | | | E SODIUM | | | | | | | PHOS, 1 MG | | | | | | | [place] | | | | | | | FOSAPREPITAN | | | | | | | T INJECTION, | | | | | | | 1 MG TX | | | | | | | PREDNISONE | | | | | | | IR OR DR | | | | | | | ORAL 1MG TX | | | | | | | | | | | | | | CYCLOPHOSPHA | | | | | | | MIDE 100 MG | | | | | | | INJ TX | | | | | | | DOXORUBICIN | | | | | | | HCL | | | | | | | INJECTION, | | | | | | | 10 MG TX | | | | | | | VINCRISTINE | | | | | | | SULFATE 1 MG | | | | | | | INJ TX | | | | | | | DIPHENHYDRAM | | | | | | | INE HCL | | | | | | | INJECTIO, 50 | | | | | | | MG [place] | | | | | | | METHYLPREDNI | | | | | | | SOLONE | | | | | | | INJECTION, | | | | | | | 125 MG [place] | | | | | | | DEXAMETHASON | | | | | | | E SODIUM | | | | | | | PHOS, 1 MG | | | | | | | [place] | | | | | | | INJECTION, | | | | | | | PEGFILGRASTI | | | | | | | M 6MG [place] | | | | | | | NORMAL | | | | | | | SALINE | | | | | | | SOLUTION | | | | | | | INFUS, 500 | | | | | | | ML [place] | | | | | | | NORMAL | | | | | | | SALINE | | | | | | | SOLUTION | | | | | | | INFUS, 250 | | | | | | | ML [place] | | | | | | | STERILE | | | | | | | WATER/SALINE | | | | | | | , 10 ML [place] | | | | | | | CHEMOTHER, | | | | | | | IV PUSH,EA | | | | | | | ADD DRUG TX | | | | | | | CHEMOTHER, | | | | | | | IV INFUSION, | | | | | | | 1 HR [place] | | | | | | | CHEMOTHER, | | | | | | | IV INFUSION, | | | | | | | EA HR [place] | | | | | | | CHEMOTHER,NO | | | | | | | N-HORMONE | | | | | | | ANTI-NEOPL, | | | | | | | SUB-Q/IM [place] | | | | | | | [...] + + + + | 06/19/ | [facility] | [facility] | Mohamud, | Diffuse large B-cell | | 2017 | Encounter | MED CTR CHEMO | Gerber Benson MD [address] | lymphoma of | | | | INFUSION [address] | [address] [place] | intra-abdominal | | | | [place], | [place] [address] | lymph nodes (HCC); | | | | [place] [address] | [phone] | Lymphedema of left | | | | [phone] | | lower extremity | +--------+ + [...] [place] | | | | | | [address] | | | | | | | [...] [address] | [place] | [phone] | | [facility] | | [address] | | | - LABORATORY | | [...] 108 | 70 - 109 mg/dL | [facility] | | [facility]ICAL | | | | | | CENTER - | | | | | | LABORATORY | | + + + + + + | BUN | 16 | 7 - 18 mg/dL | [facility] | | | | | | [facility] | | | | | | MEDICAL | | | | | | CENTER - | | | | | | LABORATORY | | + + + + + + | Creatinine | 0.89 | 0.60 - 1.30 | [facility] | | | | | mg/dL | [facility] | | | | | | MEDICAL | | | | | | CENTER - | | | | | | LABORATORY | | + + + + + + | eGFR if not | >60Comment: GLOMERULAR | >=60 | [facility] | | | | FILTRATION | mL/min/1.73m2 | [facility] | | | [place] | RATE,ESTIMATED | | MEDICAL | | | | mL/min/1.79b3Dtyk than | | CENTER - | | [...] 3.7 | 3.2 - 5.0 g/dL | [facility] | | | | | [...] Phosphatase | appended report. These | | [facility] [...] [address] | [place] | [phone] | | [facility] | | [address] | | | - LABORATORY | | [...] [address] | [place] | [phone] | | [facility] | | [address] | | | - LABORATORY | | [...] 17 10:55 | | | | | Sun06/19/17 at 1115, For 1 dose, | | [...] | | | | | Care, Starting Sun06/19/17 at | | | | | | [...]
--- OUTSIDE RECORDS SUMMARY | ~2019-09-27 | XMS | Encounter Summary ---
Demographics + + + | Address | [address] | | | [place] [address] | + + + | Home Phone | | + + + | Preferred Language | Unknown | + + + | Marital Status | | + + + | Denominational Affiliation | 1013 | + + + | Race | Unknown | + + + | Ethnic Group | Unknown | + + + Author + + + | Author | [facility] | | | and [place] | + + + | Organization | [facility] | | | [...] [place] | | | | | [address] | | + + + + + Care Team Providers + +------+ + | Care Automotive Mechanical Engineer Name | Role | Phone | [...] + + | 08/03/ | Hospital | [facility] | [facility], | Diffuse large B-cell | | 2016 | Encounter | MED CTR MEDICAL | Joaquim Benson MD [address] | lymphoma of | | | | [facility]OGY CLINIC [address] | [address] [place] | intra-abdominal | | | | [address] [place] | [place] [address] | lymph nodes (HCC) | | | | [place] [address] | [phone] | (Primary Dx) | | | | [phone] | | | +--------+ + + + [...] IU orally twice a day. 3) Ginseng: Libyan ginseng ([place] ginseng) Panax quinquefolius 2000 mg [...] the original. [facility] [place] Pt. Name/Age/: Joaquim Sanchez 66 y.o. 1950 Med. Record Number: [id number] Date of admission: 08/03/2016 Identifying Statement: Joaquim Sanchez is a 66 y.o. male from [address] [address] with Diffuse Large B-Cell Lymphoma. The patient [...] lower extremity. CT abdomen/Pelvis with contrast 2016 ([facility]). Ex tensive periaortic lymphadenopathy (1.8 cm and 2.1 cm respectively), extensive adenopathy ex tending out along the left common iliac artery and encasing the left external iliac artery ( 4.4 cm) with compromise of the left external iliac vein. 2. Open laparotomy with LEFT ileal retroperitoneal lymph node biopsy (Praveen, ESTEE) June 242015. Specimen #[id number] ([facility] Pathology); Diffuse Large [...] this chart may have been created with [employer] voice recognition software. Occasi onal wrong-word or [...] | | | | | [place] | | | | | | [address] | | | | | | | [...] | + + + + + | [facility] [facility] | [address] | [place] | [phone] | | [facility] | | [address] | | | - LABORATORY | | [...] 13 | 7 - 18 mg/dL | [facility] | | | | | | [facility] | | | | | | MEDICAL | | | | | | CENTER - | | | | | | LABORATORY | | + + + + + + | Creatinine | 0.97 | 0.60 - 1.30 | [facility] | | | | | mg/dL | [facility] | | | | | | MEDICAL | | | | | | CENTER - | | | | | | LABORATORY | | + + + + + + | eGFR if not | >60Comment: GLOMERULAR | >=60 | [facility] | | | | FILTRATION | mL/min/1.73m2 | [facility] | | | [facility] | RATE,ESTIMATED | | MEDICAL | | | | mL/min/1.49w1Ryhn than | | CENTER - | | [...] ST. | 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
--- OUTSIDE RECORDS SUMMARY | ~2019-09-27 | XMS | Encounter Summary ---
Demographics + + + | Address | [address] | | | [place] [address] | + + + | Home Phone [...] [place] | | | | | [address] | | + + + + + Care Team Providers + +------+ + | Care Laborer Poultry Hatchery Name | Role | Phone | + [...] | | cutaneous | Gerber Benson, | [place] | | | | | diffuse | MD [address] | [place], [place] | | | | | large cell | [address] | [address] | | | | | B-cell | [place], | Phone: | | | | | lymphoma | [place] [address] | [phone] | | | | | (HCC) | Phone: | Fax: | | | | | Procedures | [phone] | [phone] | | | | | PET CT Skull | Fax: | | | | | | Base To Mid | [phone] | | | | | | Thigh [...] + + | 07/21/ | Hospital | [facility] | Mohamud, | Primary cutaneous | | 2016 | Encounter | MED CTR PET SCAN | Gerber Benson MD [address] | diffuse large cell | | | | [address] [place] | [address] [place] | B-cell lymphoma | | | | [place] [address] | [place] [address] | ([facility]) | | | | [phone] | [phone] | | | | | | | [...] | | | | | [place] | | | | | | [address] | | | | | | | [...]
--- OUTSIDE RECORDS SUMMARY | ~2019-09-27 | XMS | Encounter Summary ---
Demographics + + + | Address | [address] | | | [place] [address] | + + + | Home Phone [...] [place] | | | | | [address] | | + + + + + Care Team Providers + +------+ + | Care Police Crime Scene Technician Name | Role | Phone | [...] + + | 12/05/ | Hospital | [facility] | [facility], | Diffuse large B-cell | | 2017 | Encounter | MED CTR MEDICAL | Joaquim Benson MD [address] | lymphoma of | | | | ONCOLOGY CLINIC [address] | [address] [place] | intra-abdominal | | | | [address] [place] | [place] [address] | lymph nodes (HCC) | | | | [place] [address] | [phone] | (Primary Dx); | | | | [phone] | | Lymphedema of left | | [...] nt from the original. Hematology/Oncology Progress Note [facility] [place] Pt. Name/Age/: Joaquim Sanchez Jr. 66 y.o. 1950 Med. Record Number: [id number] Date of admission: 12/05/2016 Identifying Statement: Joaquim Sanchez Jr. is a 66 y.o. male from [address] [address] with Mixed Diffuse Large B-Cell/Follicular Lymphoma. The [...] lower extremity. CT abdomen/Pelvis with contrast 2016 ([facility]). Ex tensive periaortic lymphadenopathy (1.8 cm and 2.1 cm respectively), extensive adenopathy ex tending out along the left common iliac artery and encasing the left external iliac artery ( 4.4 cm) with compromise of the left external iliac vein. 2. Open laparotomy with LEFT ileal retroperitoneal lymph node biopsy (ESTEE Morton) June 242015. Specimen #[id number] ([facility] Pathology); Diffuse Large B-Cell lymph [...] September 04, 2016. 10. CT Abdomen/Pelvis at [facility] on September 12, 2016; Positive [...] (PRIMA protocol). 14. Repeat CT scan at [place], [place] on December 01, [address] [...] also notable for the fact that Rios's postal mail carrier has prescribed Sineme t 10/100 for restless [...] in these nails being extracted by his postal mail carrier. Headaches have reso lved, decreased visual acuity is better. Chest pain and palpitations, and dyspnea on exertio n are better. complaints of rhinorrhea and epiphora are unchanged. Clinical exam is notable for stable left lower extremity lymphedema. Laboratory exam is notable for the absence of icaoymo-fbanh-sngobomiivf. Imaging from [facility], December 01, 2016 was reviewed with the [...] this chart may have been created with [employer] voice recognition software. Occasi onal wrong-word or [...] | | | | | | [facility] | | | | | | [id number] | | | | | | | [...]
--- OUTSIDE RECORDS SUMMARY | ~2019-09-27 | XMS | Encounter Summary ---
Demographics + + + | Address | [address] | | | [place] [address] | + + + | Home Phone | | + + + | Preferred Language | Unknown | + + + | Marital Status | | + + + | Religion Affiliation | 1013 | + + + | Race | Unknown | + + + | Ethnic Group | Unknown | + + + Author + + + | Author | [facility] | | | and [place] | + + + | Organization | [facility] | | | [...] [place] | | | | | [address] | | + + + + + Care Team Providers + +------+ + | Care Web Applications Architect Name | Role | Phone | + [...] + + | 10/05/ | Hospital | [facility] | Mohamud, | Diffuse large B-cell | | 2017 | Encounter | MED CTR MEDICAL | Gerber Benson MD [address] | lymphoma of | | | | ONCOLOGY CLINIC [address] | [address] [place] | intra-abdominal | | | | [address] [place] | [place] [address] | lymph nodes (HCC) | | | | [place] [address] | [phone] | (Primary Dx); | | | | [phone] | | Lymphedema of left | | | | | Yang Townsend MD | lower extremity; | | | | | [address] | Antineoplastic | | | | | [address] [place] [facility], | 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 Hematology-Oncology Progress Note [facility] Pt. Name/Age/: Gerber Galindo 66 y.o. 1950 CSN: [id number] Date of service: 10/05/2016 Provider: Yang Townsend [...] this chart may have been created with [employer] voice recognition software. Occasi onal wrong-word or [...] | | | | | [place], [place] | | | | | | [id number] | | | | | | | [...] [address] | [place] | [phone] | | [facility] | | [address] | | | - LABORATORY | | [...] [facility] | | | | | | [facility] | | | | | | MEDICAL [...] + | [facility] | [address] | [place] | [phone] | | [facility] | | [address] | | | - LABORATORY | | [...] mL/min/1.73m2 | [facility] | | | [facility] | RATE,ESTIMATED | | MEDICAL | | | | mL/min/1.80l7Ibza than | | CENTER - | | [...] | | | | | | [facility] | | | [...] + | [facility] | [address] | [place] | [phone] | | [facility] | | [address] | | | - LABORATORY | | [...] [address] | [place] | [phone] | | [facility] | | [address] | | | - LABORATORY | | [...]
--- OUTSIDE RECORDS SUMMARY | ~2019-09-27 | XMS | Encounter Summary ---
Demographics + + + | Address | [address] | | | [place] [address] | + + + | Home Phone [...] [place] | | | | | [address] | | + + + + + Care Team Providers + +------+ + | Care Community Manager Name | Role | Phone | [...] | Diffuse | Nikhil, | [address] | | | | | large B-cell | Joaquim Benson, | [place], | | | | | lymphoma of | MD [address] | [place] | | | | | | [address] | [address] | | | | | intra-abdomi | [place], | Phone: | | | | | nal lymph | [place] [address] | [phone] | | | | | nodes (HCC) | Phone: | Fax: | | | | | Procedures | [phone] | [phone] | | | | | ECHO | Fax: | | | | | | Complete | [phone] | | +--------+--------+ + + + + Reason for Visit + + + | Reason | Comments | + + + | Follow-up | | + + + Encounter Details +--------+ + + + + | Date | Type | Department | Care Team | Description | +--------+ + + + + | 10/17/ | Hospital | [facility] | Nikhil, | Diffuse large B-cell | | 2017 | Encounter | MED CTR MEDICAL | Joaquim Benson MD [address] | lymphoma of | | | | ONCOLOGY CLINIC [address] | [address] [place] | intra-abdominal | | | | [address] [place] | [place] [address] | lymph nodes (HCC) | | | | [place] [address] | [phone] | (Primary Dx) | | | | [phone] | | | +--------+ + + + [...] from the original. Hematology/Oncology Progress Note [facility] [place] Pt. Name/Age/: Joaquim Sanchez 66 y.o. 1950 [facility]. Record Number: [id number] Date of admission: 10/17/2016 Identifying Statement: Joaquim Sanchez is a 66 y.o. male from [address] [address] with Diffuse Large B-Cell Lymphoma. The patient [...] node biopsy (ESTEE Morton) June 242015. Spec[facility] #[id number] ([facility] Diffuse Large [...] 10. CT Abdomen/Pelvis at [facility] on September 12, 2016; Positive Response when [...] Joaquim robles MD 500 Units at 10/17/16 7998 Allergies: Allergy: Allergies Allergen Reactions Codeine "wires [...] J. Clin. Oncol.: Giovanni Ma, Brittney Luque., nAdie Menezes., Michael Trejo., Michael TDusty., Taty DiamondT., [...] this chart may have been created with [employer] voice recognition software. Occasi onal wrong-word or [...] | | | | | [place], [place] | | | | | | [id number] | | | | | | | [...] Room Number JR. Patient | | | [id number] Date of Study 10/26/2016 Number | | | Visit Number [id number] | | | Referring Physician NIKHIL MARCH Number | | | C Date of | | | 1950 Noc Analyst VALENTIN ADRIAN, | | | | | | [facility] Age 66 year(s) | | | Interpreting YAMEL DYKES, | | | Research Chemist Gender | | | Male Nurse Procedure [...] Index: 31 mL/m^2 | | | EF Vbjxlhzkh21% Left Ventricle Diastolic Dimension: 5.5 cm | [...] | LA Vol/BSA Index: 31 mL/m^2 EF Jydkxtsxp62% | | | | | | Left [...] Results In - 10/27/2016 7:09 AM [facility] Transthoracic Echocardiography Report | | (TTE) Demographics Patient Name DANIEL Leon Room Number JR. | | Patient [id number] Date of Study 10/26/2016 Number Visit Number | | [id number] Referring Physician NIKHIL MARCH | | Number C Date of 1950 | | Noc Analyst VALENTIN ADRIAN, | | [facility] Age 66 year(s) Interpreting YAMEL DYKES, | | Research Chemist Gender Male | | NurseProcedureType of Study [...] ml LA Vol/BSA Index: 31 mL/m^2 EF Hbwtpxvsl74% Left | | Ventricle Diastolic Dimension: 5.5 [...] | LA Vol/BSA Index: 31 mL/m^2 EF Ciftdepfh52% | | | | Left Ventricle | [...]
--- OUTSIDE RECORDS SUMMARY | ~2019-09-27 | XMS | Encounter Summary ---
Demographics + + + | Address | [address] | | | [place] [address] | + + + | Home Phone [...] [place] | | | | | [address] | | + + + + + Care Team Providers + +------+ + | Care Erecting Engineer Name | Role | Phone | + +------+ + | Kelsey Quintanilla MD | PCP | | + +------+ + Encounter Details +--------+ + + + + | Date | Type | Department | Care Team | Description | +--------+ + + + + | 02/26/ | Orders Only | [facility] | Dawson Lynn MD | | | 2014 | | CONVERSION | [address] | | | | | INTERFACES | [place] [address] | | | | | [phone] | [phone] | | | | | | | [...] [place] | | | | | | [address] | | | | | | | [...] | | patient was brought to the slabbing machine operator in the fasting state. He was | | | prepped and draped in the usual sterile fashion for radial artery | | | approach. The radial artery was easily accessed with modified | | | Seldinger approach and a 5-Austrian glide sheath was placed. A | | | 6-Austrian JL-4 catheter was advanced under fluoroscopic guidance [...] patient was brought to | | the slabbing machine operator in the fasting state. He was prepped and draped in the usual sterile | | fashion for radial artery approach. The radial artery was easily accessed with modified | | Seldinger approach and a 5-Austrian glide sheath was placed. A 6-Austrian JL-4 catheter was | | advanced under [...]
--- OUTSIDE RECORDS SUMMARY | ~2019-09-27 | XMS | Encounter Summary ---
Demographics + + + | Address | [address] | | | [place] [address] | + + + | Home Phone [...] [place] | | | | | [address] | | + + + + + Care Team Providers + +------+ + | Care Vending Technician Name | Role | Phone | [...] W | | | | | | [place], | | | | | | [place] [address] | | | | | | [phone] | | | +--------+ + + + [...] Portillo, OT - [facility]/14/2016 [facility] [address] [place] [address] Oncology Rehab Screening Date: 08/14/2016 Patient Information [...] | | | | | [place] | | | | | | [id number] | | | | | | | | +--------+---------+ + + + documented as of this encounter Visit Diagnoses Not on filedocumented in this encounter
--- OUTSIDE RECORDS SUMMARY | ~2019-09-27 | XMS | Encounter Summary ---
Demographics + + + | Address | [address] | | | [place] [address] | + + + | Home Phone [...] [place] | | | | | [address] | | + + + + + Care Team Providers + +------+ + | Care Program Arranger Name | Role | Phone | + [...] large b-cell | Gerber Benson, | [address] | | | | | lymphoma, | MD [address] | [place], | | | | | intra-abdomi | [address] | [place] [address] | | | | | nal lymph | [place], | Phone: | | | | | nodes (HCC) | [place] [address] | [phone] | | | | | Procedures | Phone: | Fax: | | | | | [place] | [phone] | [phone] | | | | | INJECTION, | Fax: | | | | | | FAMOTIDINE, | [phone] | | | | | | 20 MG [place] | | | | | [...] | | | | | | [place] NORMAL | | | | | | [...] [place] | intra-abdominal | | | | [address] [place], | [place] [address] | lymph nodes (HCC); | | | | [place] [address] | [phone] | Lymphedema of left | | | | [phone] | | lower extremity | +--------+ + [...] [place] | | | | | | [address] | | | | | | | [...] + | [facility] | [address] | [place] | [phone] | | [facility] | | [address] | | | - LABORATORY | | [...] | mL/min/1.73m2 | [facility] | | | FIJIAN | RATE,ESTIMATED | | MEDICAL | | | | mL/min/1.06u2Pvse than | | CENTER - | | [...] + | [facility] | [address] | [place] | [phone] | | [facility] | | [address] | | | - LABORATORY | | [...] ST. | [address] | [place], [place] | [phone] | | [facility] | | [address] | | | - LABORATORY | | [...]
--- OUTSIDE RECORDS SUMMARY | ~2019-09-27 | XMS | Encounter Summary ---
Demographics + + + | Address | [address] | | | [place] [address] | + + + | Home Phone [...] [place] | | | | | [address] | | + + + + + Care Team Providers + +------+ + | Care Limerock Tower Loader Name | Role | Phone | + [...] | | ONCOLOGY CLINIC [address] | [facility] [facility] | | | | | [address] | [place] [address] | | | | | [place] [address] | [phone] | | | | | [phone] | | | +--------+ + + + [...] [place] | | | | | | [address] | | | | | | | | +--------+---------+ + + + documented as of this encounter Visit Diagnoses Not on filedocumented in this encounter"
--- OUTSIDE RECORDS SUMMARY | ~2019-09-27 | XMS | Encounter Summary ---
Demographics + + + | Address | [address] | | | [place] [address] | + + + | Home Phone [...] | [place] | | | | | [address] | | + + + + + Care Team Providers + +------+ + | Care Early Childhood Services Coordinator Name | Role | Phone | + +------+ + PCP | Unavailable | + +------+ + Encounter Details +--------+ + + + + | Date | Type | Department | Care Team | Description | +--------+ + + + + | 07/17/ | Hospital | [facility] | Justin Topete MD | | | 2003 | Encounter | MED CTR SLEEP | [address] | | | | | CENTER [address] | [place] | | | | | [place] | [address] | | | | | [address] | [phone] | | | | | [phone] | | | +--------+ + + + [...] [place] | | | | | | [address] | | | | | | | | +--------+---------+ + + + documented as of this encounter Visit Diagnoses Not on filedocumented in this encounter"
--- OUTSIDE RECORDS SUMMARY | ~2019-09-27 | XMS | Encounter Summary ---
Demographics + + + | Address | [address] | | | [place] [address] | + + + | Home Phone [...] [place] | | | | | [address] | | + + + + + Care Team Providers + +------+ + | Care Oil Well Shooter Name | Role | Phone | + [...] large b-cell | Gerber Benson, | [address] [place] | | | | | lymphoma, | MD [address] | [place], | | | | | intra-abdomi | [address] | [place] [address] | | | | | nal lymph | [place], | Phone: | | | | | nodes (HCC) | [place] [address] | [phone] | | | | | Procedures | Phone: | Fax: | | | | | [place] | [phone] | [phone] | | | | | RITUXIMAB | Fax: | | | | | | INJECTION, | [phone] | | | | | | 100 MG NE | | | | | | | MEPERIDINE | | | | | | | HYDROCHL | | | | | | | /100 MG NE | | | | | | | IV INFUSION, | | | | | | | HYDRATION, | | | | | | | 31-60 MIN | | | | | | | NE IV | | | | | | | INFUSION, | | | | | | | HYDRATION, | | | | | | | EA ADD HOUR | | | | | | | NE | | | | | | | ONDANSETRON | | | | | | | HCL | | | | | | | INJECTION, 1 | | | | | | | MG NE | | | | | | | DEXAMETHASON | | | | | | | E SODIUM | | | | | | | PHOS, 1 MG | | | | | | | NE | | | | | | | FOSAPREPITAN | | | | | | | T INJECTION, | | | | | | | 1 MG NE | | | | | | | PREDNISONE | | | | | | | IR OR DR | | | | | | | ORAL 1MG NE | | | | | | | | | | | | | | CYCLOPHOSPHA | | | | | | | MIDE 100 MG | | | | | | | INJ NE | | | | | | | DOXORUBICIN | | | | | | | HCL | | | | | | | INJECTION, | | | | | | | 10 MG NE | | | | | | | VINCRISTINE | | | | | | | SULFATE 1 MG | | | | | | | INJ NE | | | | | | | DIPHENHYDRAM | | | | | | | INE HCL | | | | | | | INJECTIO, 50 | | | | | | | MG NE | | | | | | | METHYLPREDNI | | | | | | | SOLONE | | | | | | | INJECTION, | | | | | | | 125 MG NE | | | | | | | DEXAMETHASON | | | | | | | E SODIUM | | | | | | | PHOS, 1 MG | | | | | | | NE | | | | | | | INJECTION, | | | | | | | PEGFILGRASTI | | | | | | | M 6MG NE | | | | | | | NORMAL | | | | | | | SALINE | | | | | | | SOLUTION | | | | | | | INFUS, 500 | | | | | | | ML NE | | | | | | | NORMAL | | | | | | | SALINE | | | | | | | SOLUTION | | | | | | | INFUS, 250 | | | | | | | ML NE | | | | | | | STERILE | | | | | | | WATER/SALINE | | | | | | | , 10 ML NE | | | | | | | CHEMOTHER, | | | | | | | IV PUSH,EA | | | | | | | ADD DRUG NE | | | | | | | CHEMOTHER, | | | | | | | IV INFUSION, | | | | | | | 1 HR NE | | | | | | | CHEMOTHER, | | | | | | | IV INFUSION, | | | | | | | EA HR NE | | | | | | | CHEMOTHER,NO | | | | | | | N-HORMONE | | | | | | | ANTI-NEOPL, | | | | | | | SUB-Q/IM NE | | | | | | | [...] + + + + | 01/01/ | [facility] | [facility] | Mohamud, | Diffuse large B-cell | | 2017 | Encounter | MED CTR CHEMO | Gerber Benson MD [address] | lymphoma of | | | | INFUSION [address] | [address] [place] | intra-abdominal | | | | [place], | [place] [address] | lymph nodes (HCC) | | | | [place] [address] | [phone] | | | | | [phone] | | | +--------+ + + + [...] | | | | | [place] | | | | | | [address] | | | | | | | [...] [address] | [place] | [phone] | | [facility] | | [address] | | | - LABORATORY | | [...] | 0.89 | 0.60 - 1.30 | [facility] | | | | | mg/dL | [facility] | | | | | | MEDICAL | | | | | | CENTER - | | | | | | LABORATORY | | + + + + + + | eGFR if not | >60Comment: GLOMERULAR | >=60 | [facility] | | | | FILTRATION | mL/min/1.73m2 | [facility] | | | MALAGASY | RATE,ESTIMATED | | MEDICAL | | | | mL/min/1.14m5Cgmn than | | CENTER - | | [...] [address] | [place] | [phone] | | [facility] | | [address] | | | - LABORATORY | | [...] [place]. | [address] | [place] | [phone] | | [facility] | | [address] | | | - LABORATORY | | [...]
--- OUTSIDE RECORDS SUMMARY | ~2019-09-27 | XMS | Encounter Summary ---
Demographics + + + | Address | [address] | | | [place] [address] | + + + | Home Phone | | + + + | Preferred Language | Unknown | + + + | Marital Status | | + + + | Alevism Affiliation | 1013 | + + + | Race | Unknown | + + + | Ethnic Group | Unknown | + + + Author + + + | Author | [facility] | | | and [place] | + + + | Organization | [facility] | | [...] [place] | | | | | [address] | | + + + + + Care Team Providers + +------+ + | Care Supervisor Seaming Name | Role | Phone | + +------+ + | Earle Chacko MD | PCP | | + +------+ + Encounter Details +--------+ + + + + | Date | Type | Department | Care Team | Description | +--------+ + + + + | 08/13/ | Hospital | [facility] | Miguel Zuniga | Diffuse large B-cell | | 2017 | Encounter | MED CTR MEDICAL | MD Gerber [address] | lymphoma of | | | | ONCOLOGY CLINIC [address] | [address] [place] | intra-abdominal | | | | [address] [place] | [place] [address] | lymph nodes (HCC) | | | | [place] [address] | [phone] | (Primary Dx) | | | | [phone] | | | +--------+ + + + [...] Two-month follow-up 1 2:51 PM Mckayla Wells, [facility] - 08/13/2017 9:41 AM PSTREVIEW OF SYSTEMS [...] | | | | | [place], [place] | | | | | | [id number] | | | | | | | | +--------+---------+ + + + documented as of this encounter Visit Diagnoses + + | Diagnosis | + + | 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
--- OUTSIDE RECORDS SUMMARY | ~2019-09-27 | XMS | Encounter Summary ---
Demographics + + + | Address | [address] | | | [place] [address] | + + + | Home Phone [...] [place] | | | | | [address] | | + + + + + Care Team Providers + +------+ + | Care Yard Clerk Name | Role | Phone | [...] + + | 08/28/ | Office | [facility] | Mohamud, | Lymphedema of left | | 2016 | Visit | MED CNT ONCOLOGY | Gerber Benson MD [address] | lower extremity | | | | THERAPY [address] | [address] [place] | (Primary Dx) | | | | [place], | [place] [address] | | | | | [place] [address] | [phone] | | | | | [phone] | | | | | | | [...] Portillo OT - 08/28/2016 1:07 PM PST [facility] THERAPY OT OP [address] [place] [address] Occupational Therapy Daily Treatment Note Date: 08/28/2016 Patient Information Patient Name: Gerber Galindo Date of : 1950 Age: 66 y.o. History Encounter Diagnoses Code Name Primary? I89.0 Lymphedema of left lower extremity Yes Date of Onset: 2016 Referring Provider: Gerber Mallory MD Rehab Precautions Office Visit from 08/24/2016 in [facility] CTR THERAPY OT OP Rehab Precautions Precautions None Rehab Learning Style Office Visit from 08/24/2016 in [facility] CTR THERAPY OT OP Learning Style [...] | | | | | [place] | | | | | | [address] | | | | | | | | +--------+---------+ + + + documented as of this encounter Visit Diagnoses + + | Diagnosis | + + | Lymphedema of left lower extremity - Primary | + + documented in this encounter
--- OUTSIDE RECORDS SUMMARY | ~2019-09-27 | XMS | Encounter Summary ---
Demographics + + + | Address | [address] | | | [place] [address] | + + + | Home Phone [...] [address] | | | | | [place] | | | | | [address] | | + + + + + Care Team Providers + +------+ + | Care Mainspring Strip Gauger Name | Role | Phone | + [...] + + | 07/20/ | Telephone | [facility] | Patricia Mercado, | Chemotherapy | | 2015 | | MED CTR CHEMO | RN | | | | | INFUSION [address] | | | | | | [place], | | | | | | [place] [address] | | | | | | [phone] | | | +--------+ + + + [...] | | | | | [place], [place] | | | | | | [address] | | | | | | | | +--------+---------+ + + + documented as of this encounter Visit Diagnoses Not on filedocumented in this encounter"
--- OUTSIDE RECORDS SUMMARY | ~2019-09-27 | XMS | Encounter Summary ---
Demographics + + + | Address | [address] | | | [place] [address] | + + + | Home Phone [...] [place] | | | | | [address] | | + + + + + Care Team Providers + +------+ + | Care Cleaner Industrial Name | Role | Phone | + [...] large b-cell | Gerber Benson, | [address] | | | | | lymphoma, | MD [address] | [place], | | | | | intra-abdomi | [address] | [place] [address] | | | | | nal lymph | [place], | Phone: | | | | | nodes (HCC) | [place] [address] | [phone] | | | | | Procedures | Phone: | Fax: | | | | | [place] | [phone] | [phone] | | | | | INJECTION, | Fax: | | | | | | FAMOTIDINE, | [phone] | | | | | | 20 [...] [place] | intra-abdominal | | | | [address] [place], | [place] [address] | lymph nodes (HCC); | | | | [place] [address] | [phone] | Lymphedema of left | | | | [phone] | | lower extremity | +--------+ + [...] 1 tablet by | | 0 | //20 | | | (PRINIVIL, ZESTRIL) | mouth [...] Faxed progress note and scheduling orders to [place], [place] and spoke with LUZ Dodd at [facility]. AVS provided with lab values today. They will call if they have not heard from [facility] in the next few days. Discharged to [...] | | | | | [place] | | | | | | [address] | | | | | | | [...] | Immature | | K/uL | [facility] | | | Granulocyte | | | MEDICAL | | | s | | | CENTER - | | | | | | LABORATORY | | + + + + + + | % nRBC | 0 | 0 - 2 per 100 | [facility] | | | | | WBC's | [facility] | | | | | | MEDICAL | | | | | | CENTER - | | | | | | LABORATORY | | + + + + + + | Absolute | 0.00 | 0.00 - 0.01 | [facility] | | | nRBC | | K/uL | [facility] | [...] [address] | [place] | [phone] | | [facility] | | [address] | | | - LABORATORY | | [...] mL/min/1.73m2 | [facility] | | | SYRIAN | RATE,ESTIMATED | | MEDICAL | | | | mL/min/1.92n2Imvc than | | CENTER - | | [...] + | [facility] | [address] | [place] | [phone] | | [facility] | | [address] | | | - LABORATORY | | | | + + + + + Lactate Dehydrogenase (07/15/2018 9:16 AM PDT) + +-------+ + + + | Component | Value | Ref Range | Performed | Pathologist | | | | | At | Signature | + +-------+ + + + | LDH TOTAL | 149 | 91 - 180 U/L | [facility] [...] + | [facility] | [address] | [place] | [phone] | | [facility] | | [address] | | | - LABORATORY | | [...] | + + + | Performed at: 01 - [facility] [place] [address], | REFERENCE LAB | | [place], [place] [id number] Forest Scientist: Toney Arce MD, Phone: | KIM - BKOsvaldo | | [phone] | | + + + + + + + + | Performing | Address | City/State/Zipcode | Phone Number | | Organization | | | | + + + + + | REFERENCE LAB | [address] | [place] [address] | [phone] | | [facility] | Dung Ortiz | | | + + + + [...]
--- OUTSIDE RECORDS SUMMARY | ~2019-09-27 | XMS | Encounter Summary ---
Demographics + + + | Address | [address] | | | [place] [address] | + + + | Home Phone [...] [place] | | | | | [address] | | + + + + + Care Team Providers + +------+ + | Care Sheet Rock Finisher Name | Role | Phone | [...] | | | large b-cell | Gerber Bneson, | [address] | | | | | lymphoma, | MD [address] | [place], | | | | | intra-abdomi | [address] | [place] [address] | | | | | nal lymph | [place], | Phone: | | | | | nodes (HCC) | [place] [address] | [phone] | | | | | Procedures | Phone: | Fax: | | | | | [place] | [phone] | [phone] | | | | | INJECTION, | Fax: | | | | | | FAMOTIDINE, | [phone] | | | | | | 20 [...] [place] | intra-abdominal | | | | [address] [place], | [place] [address] | lymph nodes (HCC); | | | | [place] [address] | [phone] | Lymphedema of left | | | | [phone] | | lower extremity | +--------+ + [...] Faxed progress note and scheduling orders to [place], [place] and spoke with LUZ Dodd at [facility]. AVS provided with lab values today. They will call if they have not heard from [facility] in the next few days. Discharged to home in stable condition with . Electronically s igned by Chari Garcia RN at 07/15/2018 3:02 PM PDTdocumented in this encounter Plan of Treatment +--------+---------+ + + + | Date | Type | Specialty | Care Team | Description | +--------+---------+ + + + | 10/01/ | Office | Cardiology | Kaern Bansal, | | | 2019 | Visit | | MD Patricia JOHNSON | | | | | | [place] | | | | | | [address] | | | | | | | [...] [address] | [place] | [phone] | | [facility] | | [address] | | | - LABORATORY | | [...] mL/min/1.73m2 | [facility] | | | [place] | RATE,ESTIMATED | | MEDICAL | | | | mL/min/1.64h3Jrxl than | | CENTER - | | [...] + | [facility] | [address] | [place] | [phone] | | [facility] | | [address] | | | - LABORATORY | | [...] + | [facility] | [address] | [place] | [phone] | | [facility] | | [address] | | | - LABORATORY | | [...] + | Performed at: 01 - [facility] [place] [address], | REFERENCE LAB | | [place], [place] [id number] Band Singer: Toney Arce MD, Phone: | KIM - BKOsvaldo | | [phone] | | + + + + + + + + | Performing | Address | City/State/Zipcode | Phone Number | | Organization | | | | + + + + + | REFERENCE LAB | [address] | [place] [address] | [phone] | | [facility] | Dung [...]
--- OUTSIDE RECORDS SUMMARY | ~2019-09-27 | XMS | Encounter Summary ---
Demographics + + + | Address | [address] | | | [place] [address] | + + + | Home Phone [...] [place] | | | | | [address] | | + + + + + Care Team Providers + +------+ + | Care Dictating Machine Mechanic Name | Role | Phone | [...] + + | 06/19/ | Hospital | [facility] | Mohamud, | Diffuse large B-cell | | 2017 | Encounter | MED CTR MEDICAL | Joaquim Benson MD [address] | lymphoma of | | | | ONCOLOGY CLINIC [address] | [address] [place] | intra-abdominal | | | | [address] [place] | [place] [address] | lymph nodes (HCC) | | | | [place] [address] | [phone] | | | | | [phone] | | | +--------+ + + + [...] nt from the original. Hematology/Oncology Progress Note [facility], [place] Pt. Name/Age/: Joaquim Sanchez Jr. 66 y.o. 1950 Med. Record Number: [id number] Date of admission: 06/19/2017 Identifying Statement: Joaquim Sanchez Jr. is a 66 y.o. male from [address] [place] [address] with Mixed Diffuse Large B-Cell/Follicular Lymphoma in [...] lower extremity. CT abdomen/Pelvis with contrast 2016 ([facility] Ex tensive periaortic lymphadenopathy (1.8 cm and 2.1 cm respectively), extensive adenopathy ex tending out along the left common iliac artery and encasing the left external iliac artery ( 4.4 cm) with compromise of the left external iliac vein. 2. Open laparotomy with LEFT ileal retroperitoneal lymph node biopsy ([facility], [facility]) June 242015. Specimen #[id number] ([facility]ology); Diffuse Large B-Cell [...] 2016. 10. CT Abdomen/Pelvis at [facility] [place] on September 12, 2016; Positive Response [...] (PRIMA protocol). 14. Repeat CT scan at [place], [place] on December 01, [address] [...] [address] scan at [facility] on April 18, 2017 demonstrated decreased [...] 2006 , Vol. 47, No. 6, pp 6052-3170. In the first article, an observational study [...] observational study, by Marques bonilla al from [facility] th at reports [...] this chart may have been created with Imperva voice recognition software. Occasi onal wrong-word or [...] | | | | | [place] | | | | | | [address] | | | | | | | | +--------+---------+ + + + documented as of this encounter Visit Diagnoses + + | Diagnosis | + + | Diffuse large B-cell lymphoma of intra-abdominal lymph nodes (HCC) Other malignant | | lymphomas of intra-abdominal lymph nodes | + + documented in this encounter
--- OUTSIDE RECORDS SUMMARY | ~2019-09-27 | XMS | Encounter Summary ---
Demographics + + + | Address | [address] | | | [place] [address] | + + + | Home Phone | | + + + | Preferred Language | Unknown | + + + | Marital Status | Unknown | + + + | Zoroastrian Affiliation | Unknown | + + + | Race | Unknown | + + + | Ethnic Group | Unknown | + + + Author + + + | Author | [facility] | + + + | Organization | [facility] | + + + | Address | Unknown | + + + | Phone | Unavailable | + + + Care Team Providers + +------+ + | Care Optics Manufacturing Technician Name | Role | Phone | + +------+ + PCP | Unavailable | + +------+ + Encounter Details +--------+ + + + + | Date | Type | Department | Care Team | Description | +--------+ + + + + | 07/21/ | Abstract | [facility] | Clinic, Surgery | | | 2014 | | [place] at [facility] [address] | | | | | | Lucien Martin | | | | | | Mailcode: [place] | | | | | | [facility] and | | | | | | [facility], [facility] [address] | | | | | | [place], [place] | | | | | | [address] | | | | | | [phone] | | | +--------+ + + + [...]
--- OUTSIDE RECORDS SUMMARY | ~2019-09-27 | XMS | Encounter Summary ---
Demographics + + + | Address | [address] | | | [place] [address] | + + + | Home Phone [...] [place] | | | | | [address] | | + + + + + Care Team Providers + +------+ + | Care Respiratory Care Instructor Name | Role | Phone | + +------+ + | Ealre Chacko MD | PCP | | + [...] | intra-abdominal | | | | [address] [place] | [place] [address] | lymph nodes (HCC) | | | | [place] [address] | [phone] | (Primary Dx) | | | | [phone] | | | +--------+ + + + [...] | | | | | [place], [place] | | | | | | [address] | | | | | | | [...]
--- OUTSIDE RECORDS SUMMARY | ~2019-09-27 | XMS | Encounter Summary ---
Demographics + + + | Address | [address] | | | [place] [address] | + + + | Home Phone [...] [place] | | | | | [address] | | + + + + + Care Team Providers + +------+ + | Care Retail Clerk Name | Role | Phone | [...] + + | 09/14/ | Hospital | [facility] | Miguel Zuniga | Diffuse large B-cell | | 2016 | Encounter | MED CTR MEDICAL | MD Gerber [address] | lymphoma of | | | | ONCOLOGY CLINIC [address] | [address] [place] | intra-abdominal | | | | [address] [place] | [place] [address] | lymph nodes (HCC) | | | | [place] [address] | [phone] | (Primary Dx); | | | | [phone] | | Lymphedema of left | | [...] erent from the original. Hem-Onc Progress Note [facility] Pt. Name/Age/: Gerber Galindo 66 y.o. 1950 Med. Record Number: [id number] Date of admission: 09/14/2016 Assessment and plan: [...] Electronically signed by: Miguel Zuniga, 09/14/2016 15:10 [facility] TIME SPENT 25 MIN. > 50% AT BEDSIDE, WITH FAMILY/PATIENT IN CARE AND SOCIAL SERVICES DESIGNEE ON UNIT AND CO ORDINATION OF CARE Portions of this chart may have been created with Swipp voice recognition software. Occasi onal wrong-word or sound-alike substitutions may have occurred due to the inherent valencia itations of voice recognition software. Please read the chart carefully and recognize, using context, where these substitutions have occurred. [facility] - 09/14/2016 1:43 PM [...] | | | | | [place] | | | | | | [id number] | | | | | | | [...] + | [facility] | [address] | [place] | [phone] | | [facility] | | [address] | | | - LABORATORY | | [...] + | [facility] | [address] | [place] | [phone] | | [facility] | | [address] | | | - LABORATORY | | [...] | | | | mmol/L | [facility] | | | | [...] mL/min/1.73m2 | [facility] | | | MOZAMBICAN | RATE,ESTIMATED | | MEDICAL | | | | mL/min/1.28m7Hztl than | | CENTER - | | [...] | 9.1 | 8.3 - 10.5 | [facility] | | | | | mg/dL | [...] + | [facility] | [address] | [place] | [phone] | | [facility] | | [address] | | | - LABORATORY | | [...] [address] | [place] | [phone] | | [facility] | | [address] | | | - LABORATORY | | [...]
--- OUTSIDE RECORDS SUMMARY | ~2019-09-27 | XMS | Encounter Summary ---
Demographics + + + | Address | [address] | | | [place] [address] | + + + | Home Phone [...] [place] | | | | | [address] | | + + + + + Care Team Providers + +------+ + | Care Aircraft Electronics Technical Officer Name | Role | Phone | [...] + + | 10/26/ | Hospital | [facility] | [facility], | Lymphedema of left | | 2017 | Encounter | MED CTR MEDICAL | Joaquim Benson MD [address] | lower extremity | | | | ONCOLOGY CLINIC [address] | [address] [place] | (Primary Dx); | | | | [address] [place] | [place] [address] | Diffuse large B-cell | | | | [place] [address] | [phone] | lymphoma of | | | | [phone] | | intra-abdominal | | | | [...] nt from the original. Hematology/Oncology Progress Note [place], [place] Pt. Name/Age/: Joaquim Sanchez Jr. 66 y.o. 1950 Med. Record Number: [id number] Date of admission: 10/26/2016 Identifying Statement: Joaquim Sanchez Jr. is a 66 y.o. male from [address] [address] with Diffuse Large B-Cell Lymphoma. The patient [...] with contrast 2016 ([facility]). Ex tensive periaortic lymphadenopathy (1.8 cm and 2.1 cm respectively), extensive adenopathy ex tending out along the left common iliac artery and encasing the left external iliac artery ( 4.4 cm) with compromise of the left external iliac vein. 2. Open laparotomy with LEFT ileal retroperitoneal lymph node biopsy ([facility], [facility]) June 242015. Specimen #[id number] ([facility] Pathology); Diffuse Large B-Cell lymph [...] September 04, 2016. 10. CT Abdom[facility]vis at [facility] on September 12, 2016; Positive Response when [...] 17, 2016. Current Assessment & Plan Joaquim Atknison" returned to clinic on 10/26/2016 with his [...] Andie Menezes., Michael Trejo., Michael, TDusty., Dara, EChristianT., Fatoumata, P .P.: Toxicity And Response Criteria Of The Eastern Cooperative Oncology Group. Am J Clin Onc ol 5:649-655, 1982. The ECOG Performance Status is in the public domain therefore available for public use. To duplicate the scale, please cite the reference above and credit the Eastern Cooperative Onco logy Group, Joaquim gAuirre M.D., Group Chair Diagnostic studies: Available data [...] chart may have been created with Super Vitamin D recognition software. Occasi onal wrong-word or sound-alike [...] | | | | | [place] | | | | | | [address] | | | | | | | [...] [address] | [place] | [phone] | | [facility] | | [address] | | | - LABORATORY | | [...] mL/min/1.73m2 | [facility] | | | BRITISH | RATE,ESTIMATED | | MEDICAL | | | | mL/min/1.98r0Bouy than | | CENTER - | | [...] + | [facility] | [address] | [place] | [phone] | | [facility] | | [address] | | | - LABORATORY | | [...] ST. | [address] | [place], [place] | [phone] | | [facility] | | [address] | | | - LABORATORY | | [...]
--- OUTSIDE RECORDS SUMMARY | ~2019-09-27 | XMS | Encounter Summary ---
Demographics + + + | Address | [address] | | | [place] [address] | + + + | Home Phone [...] | [place] | | | | | [address] | | + + + + + Care Team Providers + +------+ + | Care Hair Assistant Name | Role | Phone | + +------+ + PCP | Unavailable | + +------+ + Encounter Details +--------+ + + + + | Date | Type | Department | Care Team | Description | +--------+ + + + + | 07/17/ | Hospital | [facility] | Justin Topete MD | | | 2003 | Encounter | MED CTR SLEEP | [address] | | | | | CENTER [address] | [place] | | | | | [place] | [address] | | | | | [address] | [phone] | | | | | [phone] | | | +--------+ + + + [...] [place] | | | | | | [address] | | | | | | | | +--------+---------+ + + + documented as of this encounter Visit Diagnoses Not on filedocumented in this encounter"
--- OUTSIDE RECORDS SUMMARY | ~2019-09-27 | XMS | Encounter Summary ---
Demographics + + + | Address | [address] | | | [place] [address] | + + + | Home Phone | | + + + | Preferred Language | Unknown | + + + | Marital Status | | + + + | Sikh Affiliation | 1013 | + + + [...] [place] | | | | | [address] | | + + + + + Care Team Providers + +------+ + | Care Private Duty Rn Name | Role | Phone | + [...] | | | nal lymph | [place] [address] | [address] Phone: | | | | | nodes (HCC) | Phone: | [phone] | | | | | Procedures | [phone] | Fax: | | | | | [address] | Fax: | [phone] | | | | | | [phone] | | +--------+--------+ + + + + Encounter Details +--------+ + + + + | Date | Type | Department | Care Team | Description | +--------+ + + + + | 12/03/ | Hospital | [facility] | Mohamud, | Diffuse large B-cell | | 2018 | Encounter | MED CTR MEDICAL | Joaquim Benson MD [address] | lymphoma of | | | | ONCOLOGY CLINIC [address] | [address] [place] | intra-abdominal | | | | [address] [place] | [place] [address] | lymph nodes (HCC) | | | | [place] [address] | [phone] | | | | | [phone] | | | +--------+ + + + [...] from the original. Hematology/Oncology Progress Note [facility] [place] Pt. Name/Age/: Joaquim Sanchez Jr. 67 y.o. 1950 [facility]. Record Number: [id number] Date of admission: 12/03/2017 The patient's primary care provider is Kelsey Quintanilla MD. Identifying Statement: Joaquim Sanchez Jr. is a 67 y.o. male from [address] [address] with Mixed Diffuse Large B-Cell/Follicular Lymphoma in [...] lower extremity. CT abdomen/Pelvis with contrast 2016 ([facility]). Ex tensive periaortic lymphadenopathy (1.8 cm and 2.1 cm respectively), extensive adenopathy ex tending out along the left common iliac artery and encasing the left external iliac artery ( 4.4 cm) with compromise of the left external iliac vein. 2. Open laparotomy with LEFT ileal retroperitoneal lymph node biopsy ([facility], [facility]) June 242015. Specimen #[id number] ([facility]); Diffuse Large B-Cell [...] 04, 2016. 10. CT Abdomen[facility]elvis at [facility] on September 12, 2016; Positive Response [...] (PRIMA protocol). 14. Repeat CT scan at [employer], [place] on December 01, [address] [...] [address]. [address] scan at [facility] on April 18, 2017 demonstrated [...] [address] scan at [facility] on November 21, 2017 demonstrated decreased left [...] limiting. November 21, 2017 CT scan at [facility] was reviewed and indicates ongoing diminution of residual left iliac lymphad enopathy. 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 Plan; Proceed today with Cycle #8 [...] 2006 , Vol. 47, No. 6, pp 3105-1724. In the first article, an observational study [...] this chart may have been created with The Zebra voice recognition software. Occasi onal wrong-word or [...] [place] | | | | | | [facility] [place] | | | | | | [address] | | | | | | | | +--------+---------+ + + + documented as of this encounter Visit Diagnoses + + | Diagnosis | + + | Diffuse large B-cell lymphoma of intra-abdominal lymph nodes (HCC) Other malignant | | lymphomas of intra-abdominal lymph nodes | + + documented in this encounter
--- OUTSIDE RECORDS SUMMARY | ~2019-09-27 | XMS | Encounter Summary ---
Demographics + + + | Address | [address] | | | [place] [address] | + + + | Home Phone [...] [place] | | | | | [address] | | + + + + + Care Team Providers + +------+ + | Care Reimbursement Representative Name | Role | Phone | [...] large b-cell | Gerber Benson, | [address] [place] | | | | | lymphoma, | MD [address] | [place], | | | | | intra-abdomi | [address] | [place] [address] | | | | | nal lymph | [place], | Phone: | | | | | nodes (HCC) | [place] [address] | [phone] | | | | | Procedures | Phone: | Fax: | | | | | [place] | [phone] | [phone] | | | | | INJECTION, | Fax: | | | | | | FAMOTIDINE, | [phone] | | | | | | 20 MG DC | | | | | [...] | | | | | | DC NORMAL | | | | | | [...] [place] | intra-abdominal | | | | [place], | [place] [address] | lymph nodes (HCC) | | | | [place] [address] | [phone] | | | | | [phone] | | | +--------+ + + + [...] | | | | | D[place]per [place], [place] | | | | | | [address] | | | | | | | [...] | | | | | M/uL | [facility] | | | | | [...] [address] | [place] | [phone] | | [facility] | | [address] | | | - LABORATORY | | [...] 109 | 70 - 109 mg/dL | [facility] | | | | | [facility] | | | | | | MEDICAL | | | | | | CENTER - | | | | | | LABORATORY | | + + + + + + | BUN | 17 | 7 - 18 mg/dL | [facility] | | | | | [facility] | | | | | | MEDICAL | | | | | | CENTER - | | | | | | LABORATORY | | + + + + + + | Creatinine | 0.94 | 0.60 - 1.30 | [facility] | | | | | mg/dL | [facility] | | | | | | MEDICAL | | | | | | CENTER - | | | | | | LABORATORY | | + + + + + + | eGFR if not | >60Comment: GLOMERULAR | >=60 | [facility] | | | | FILTRATION | mL/min/1.73m2 | [facility] | | | [place] | RATE,ESTIMATED | | MEDICAL | | | | mL/min/1.19t3Ppox than | | CENTER - | | [...] [address] | [place] | [phone] | | [facility] | | [address] | | | - LABORATORY | | [...] [address] | [place] | [phone] | | [facility] | | [address] | | | - LABORATORY | | [...]
--- OUTSIDE RECORDS SUMMARY | ~2019-09-27 | XMS | Encounter Summary ---
Demographics + + + | Address | [address] | | | [place] [address] | + + + | Home Phone [...] [place] | | | | | [address] | | + + + + + Care Team Providers + +------+ + | Care Instructor Wastewater Treatment [employer] Name | Role | Phone | + [...] | | MED CTR MEDICAL | Gerber Bneson MD [address] | | | | | ONCOLOGY CLINIC [address] | [facility] | | | | | [address] | [place] [address] | | | | | [place] [address] | [phone] | | | | | [phone] | | | +--------+ + + + [...] [place] | | | | | | [address] | | | | | | | [...]
--- OUTSIDE RECORDS SUMMARY | ~2019-09-27 | XMS | Encounter Summary ---
Demographics + + + | Address | [address] | | | [place] [address] | + + + | Home Phone [...] [place] | | | | | [address] | | + + + + + Care Team Providers + +------+ + | Care Senior Payroll Administrator Name | Role | Phone | [...] | | cutaneous | Gerber Benson, | [place] | | | | | diffuse | MD [address] | [place], [place] | | | | | large cell | [address] | [address] | | | | | B-cell | [place], | Phone: | | | | | lymphoma | [place] [address] | [phone] | | | | | (HCC) | Phone: | Fax: | | | | | Procedures | [phone] | [phone] | | | | | PET CT Skull | Fax: | | | | | | Base To Mid | [phone] | | | | | | Thigh [...] | 07/21/ | Hospital | [facility] | Mohamud, | Primary cutaneous | | 2016 | Encounter | MED CTR PET SCAN | Gerber Benson MD [address] | diffuse large cell | | | | [address] [place] | [address] [place] | B-cell lymphoma | | | | [place] [address] | [place] [address] | ([facility]) | | | | [phone] | [phone] | | | | | | | [...] | | | | | DARRYL Piper [place] | | | | | | [address] | | | | | | | [...]
--- OUTSIDE RECORDS SUMMARY | ~2019-09-27 | XMS | Encounter Summary ---
Demographics + + + | Address | [address] | | | [place] [address] | + + + | Home Phone | | + + + | Preferred Language | Unknown | + + + | Marital Status | | + + + | Mormon Affiliation | 1013 | + + + [...] [place] | | | | | [address] | | + + + + + Care Team Providers + +------+ + | Care Occasional Babysitter Name | Role | Phone | + [...] large b-cell | Gerber Benson, | [address] [place] | | | | | lymphoma, | MD [address] | [place], | | | | | intra-abdomi | [address] | [place] [address] | | | | | nal lymph | [place], | Phone: | | | | | nodes (HCC) | [place] [address] | [phone] | | | | | Procedures | Phone: | Fax: | | | | | [place] | [phone] | [phone] | | | | | [place] | Fax: | | | | | | INJECTION, | [phone] | | | | | | 100 [...] + + + + | 06/19/ | [facility] | [facility] | Mohamud, | Diffuse large B-cell | | 2017 | Encounter | MED CTR CHEMO | Gerber Benson MD [address] | lymphoma of | | | | INFUSION [address] | [address] [place] | intra-abdominal | | | | [place], | [place] [address] | lymph nodes (HCC); | | | | [place] [address] | [phone] | Lymphedema of left | | | | [phone] | | lower extremity | +--------+ + [...] [place] | | | | | | [address] | | | | | | | [...] [address] | [place] | [phone] | | [facility] | | [address] | | | - LABORATORY | | [...] | 0.89 | 0.60 - 1.30 | [facility] | | | | | [...] mL/min/1.73m2 | [facility] | | | [place] | RATE,ESTIMATED | | MEDICAL | | | | mL/min/1.60r7Sigj than | | CENTER - | | [...] [address] | [place] | [phone] | | [facility] | | [address] | | | - LABORATORY | | [...] [address] | [place] | [phone] | | [facility] | | [address] | | | - LABORATORY | | [...]
--- OUTSIDE RECORDS SUMMARY | ~2019-09-27 | XMS | Encounter Summary ---
Demographics + + + | Address | [address] | | | [place] [address] | + + + | Home Phone [...] [place] | | | | | [address] | | + + + + + Care Team Providers + +------+ + | Care Senior Analytical Chemist Name | Role | Phone | + [...] | | ONCOLOGY CLINIC [address] | [place] [facility] | | | | | [address] | [place] [address] | | | | | [place] [address] | [phone] | | | | | [phone] | | | +--------+ + + + [...] [place] | | | | | | [address] | | | | | | | | +--------+---------+ + + + documented as of this encounter Visit Diagnoses Not on filedocumented in this encounter"
--- OUTSIDE RECORDS SUMMARY | ~2019-09-27 | XMS | Encounter Summary ---
Demographics + + + | Address | [address] | | | [place] [address] | + + + | Home Phone [...] [place] | | | | | [address] | | + + + + + Care Team Providers + +------+ + | Care Buggyman Name | Role | Phone | + [...] [place]LE | | | | | [address] | [place] [address] | | | | | [place] [address] | [phone] | | | | | [phone] | | | +--------+ + + + [...] from the original. IDT PATIENT MEDICATION/PROFILE REVIEW [facility] Pharmacy [...] CHOP alone in elderly patients with diffuse dftey-M-npmd lymphoma. NEJM 2002; 346:235- 242. 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
--- OUTSIDE RECORDS SUMMARY | ~2019-09-27 | XMS | Encounter Summary ---
Demographics + + + | Address | [address] | | | [place] [address] | + + + | Home Phone [...] [place] | | | | | [address] | | + + + + + Care Team Providers + +------+ + | Care Box Office Agent Name | Role | Phone | [...] antineoplast | MD [address] | [address] [place] | | | | | ic | [address] | [place], | | | | | chemotherapy | [place], | [place] [address] | | | | | Diffuse | [place] [address] | Phone: | | | | | large b-cell | Phone: | [phone] | | | | | lymphoma, | [phone] | Fax: | | | | | intra-abdomi | Fax: | [phone] | | | | | nal lymph | [phone] | | | | | | nodes (HCC) | | | | | | | Procedures | | | | | | | [place] MED NUTR | | | | | [...] W | | | | | | [place], | | | | | | [place] [address] | | | | | | [phone] | | | +--------+ + + + [...] [place] | | | | | | [address] | | | | | | | [...]
--- OUTSIDE RECORDS SUMMARY | ~2019-09-27 | XMS | Encounter Summary ---
Demographics + + + | Address | [address] | | | [place] [address] | + + + | Home Phone [...] [place] | | | | | [address] | | + + + + + Care Team Providers + +------+ + | Care Trades Helper Name | Role | Phone | [...] | | Diffuse | Mohamud, | [address] [place] | | | | | large B-cell | Joaquim C, | [place], | | | | | lymphoma of | MD [address] | [place] [address] | | | | | | [address] | Phone: | | | | | intra-abdomi | [place], | [phone] | | | | | nal lymph | [place] [address] | Fax: | | | | | nodes (HCC) | Phone: | [phone] | | | | | Procedures | [phone] | | | | | | CT Abdomen | Fax: | | | | | | Pelvis w | [phone] | | | | | | Contrast [...] | | | nal lymph | [place] [address] | [address] Phone: | | | | | nodes (HCC) | Phone: | [phone] | | | | | Procedures | [phone] | Fax: | | | | | [address] | Fax: | [phone] | | | | | | [phone] | | +--------+--------+ + + + + Encounter Details +--------+ + + + + | Date | Type | Department | Care Team | Description | +--------+ + + + + | 10/09/ | Hospital | [facility] | Mohamud, | Diffuse large B-cell | | 2018 | Encounter | MED CTR MEDICAL | Joaquim Benson MD [address] | lymphoma of | | | | ONCOLOGY CLINIC [address] | [address] [place] | intra-abdominal | | | | [place] | [place] [place] [address] | lymph nodes (HCC) | | | | [place] [address] | [phone] | (Primary Dx) | | | | [phone] | | | +--------+ + + + [...] original. Hematology/Oncology Progress Note [facility] [place] Pt. Name/Age/: Joaquim Sanchez Jr. 67 y.o. 1950 [facility]. Record Number: [id number] Date of admission: 10/09/2017 Identifying Statement: Joaquim Sanchez Jr. is a 67 y.o. male from [address] [address] with Mixed Diffuse Large B-Cell/Follicular Lymphoma in [...] lower extremity. CT abdomen/Pelvis with contrast 2016 ([facility]). Ex tensive periaortic lymphadenopathy (1.8 cm and 2.1 cm respectively), extensive adenopathy ex tending out along the left common iliac artery and encasing the left external iliac artery ( 4.4 cm) with compromise of the left external iliac vein. 2. Open laparotomy with LEFT ileal retroperitoneal lymph node biopsy ([facility]) June 242015. Specimen #[id number] ([facility]); Diffuse Large B-Cell lymph [...] protocol). 14. Repeat CT scan at [facility], [place], [place] on December 01, [address] [...] [address] scan at [facility] on April 18, 2017 demonstrated decreased left [...] ly mphedema machine for home use through [facility] home health. Chief complaint is fatigue. [...] 2006 , Vol. 47, No. 6, pp 1920-1728. In the first article, an observational study [...] (Not Released) Schedule CT scan abdomen/pelvis at [facility] QFU CBC,CMP,LDH Port DRAW IN [...] this chart may have been created with [email or web address] voice recognition software. Occasi onal wrong-word or [...] 10/01/ | Office | Cardiology | Karen aBnsal, | | | 2019 | Visit | | MD Patricia JOHNSON | | | | | | [place] | | | | | | 8[address] | | | | | | | [...]
--- OUTSIDE RECORDS SUMMARY | ~2019-09-27 | XMS | Encounter Summary ---
Demographics + + + | Address | [address] | | | [place] [address] | + + + | Home Phone [...] [place] | | | | | [address] | | + + + + + Care Team Providers + +------+ + | Care Courtesy Van Driver Name | Role | Phone | [...] lower | MD [address] | [address] [place] | | | | | extremity | [address] | [place], | | | | | | [place], | [place] [address] | | | | | | [place] [address] | Phone: | | | | | | Phone: | [phone] | | | | | | [phone] | Fax: | | | | | | Fax: | [phone] | | | | | | [phone] | | +--------+ + + + + + Encounter Details +--------+---------+ + + + | Date | Type | Department | Care Team | Description | +--------+---------+ + + + | 08/24/ | [facility] | [facility] | Mohamud, | Lymphedema of left | | 2016 | Visit | MED CNT ONCOLOGY | Gerber Benson MD [address] | lower extremity | | | | THERAPY [address] | [address] [place] | (Primary Dx) | | | | [place], | [place] [address] | | | | | [place] [address] | [phone] | | | | | [phone] | | | | | | | [...] of an appropriate compression garm ents for half-way management of edema. Treatment Plan/Interventions 45316 - OT [id number] - Therapeutic [id number] - Therapeutic Jeiqyvyjom36027 - Manu al Therapy Patient and/or family has indicated understanding of treatment needs and actively participa ian in the creation of this plan for care. Electronically signed by: Olivia Portillo OT, 08/25/2016 9:16 Patient Name: Gerber Galindo/: 1950/ Evelyn Vela OT - 08/25/2016 8:39 AM PSTFormatting of this note might be different from the [facility] THERAPY OT OP [address] [place] [facility] [address] Occupational Therapy Initial Assessment Date: 08/24/2016 Patient [...] Rehab Precautions Office Visit from 08/24/2016 in [facility] CTR THERAPY OT OP Rehab Precautions [...] an appropriate compression garm ents for terminal make up operator management of edema. Plan Date of Onset: 2016 Start of Care Date: 08/24/2016 Requested # of Visits: 8 visits 1x/week for 8 weeks Certification From: 08/24/2016 Certification To: 10/24/2016 Treatment Plan/Interventions 65134 - OT [id number] - Therapeutic Moegvwqu30497 - Therapeutic Gzgnndwehw63510 - Manu al Therapy Patient and/or family [...] | | | | | [place] | | | | | | [address] | | | | | | | [...]
--- OUTSIDE RECORDS SUMMARY | ~2019-09-27 | XMS | Encounter Summary ---
Demographics + + + | Address | [address] | | | [place] [address] | + + + | Home Phone [...] [place] | | | | | [address] | | + + + + + Care Team Providers + +------+ + | Care Solar Project Engineer Name | Role | Phone | [...] large b-cell | Gerber Benson, | [address] | | | | | lymphoma, | MD [address] | [place], | | | | | intra-abdomi | [address] | [place] [address] | | | | | nal lymph | [place], | Phone: | | | | | nodes (HCC) | [place] [address] | [phone] | | | | | Procedures | Phone: | Fax: | | | | | [place] | [phone] | [phone] | | | | | [place] | Fax: | | | | | | INJECTION, | [phone] | | | | | | 100 MG FL | | | | | | | MEPERIDINE | | | | | | | HYDROCHL | | | | | | | /100 MG FL | | | | | | | IV INFUSION, | | | | | | | HYDRATION, | | | | | | | 31-60 MIN | | | | | | | FL IV | | | | | | | INFUSION, | | | | | | | HYDRATION, | | | | | | | EA ADD HOUR | | | | | | | FL | | | | | | | ONDANSETRON | | | | | | | HCL | | | | | | | INJECTION, 1 | | | | | | | MG FL | | | | | | | DEXAMETHASON | | | | | | | E SODIUM | | | | | | | PHOS, 1 MG | | | | | | | FL | | | | | | | FOSAPREPITAN | | | | | | | T INJECTION, | | | | | | | 1 MG FL | | | | | | | PREDNISONE | | | | | | | IR OR DR | | | | | | | ORAL 1MG FL | | | | | | | | | | | | | | CYCLOPHOSPHA | | | | | | | MIDE 100 MG | | | | | | | INJ FL | | | | | | | DOXORUBICIN | | | | | | | HCL | | | | | | | INJECTION, | | | | | | | 10 MG FL | | | | | | | VINCRISTINE | | | | | | | SULFATE 1 MG | | | | | | | INJ FL | | | | | | | DIPHENHYDRAM | | | | | | | INE HCL | | | | | | | INJECTIO, 50 | | | | | | | MG FL | | | | | | | METHYLPREDNI | | | | | | | SOLONE | | | | | | | INJECTION, | | | | | | | 125 MG FL | | | | | | | DEXAMETHASON | | | | | | | E SODIUM | | | | | | | PHOS, 1 MG | | | | | | | FL | | | | | | | INJECTION, | | | | | | | PEGFILGRASTI | | | | | | | M 6MG FL | | | | | | | NORMAL | | | | | | | SALINE | | | | | | | SOLUTION | | | | | | | INFUS, 500 | | | | | | | ML FL | | | | | | | NORMAL | | | | | | | SALINE | | | | | | | SOLUTION | | | | | | | INFUS, 250 | | | | | | | ML FL | | | | | | | STERILE | | | | | | | WATER/SALINE | | | | | | | , 10 ML FL | | | | | | | CHEMOTHER, | | | | | | | IV PUSH,EA | | | | | | | ADD DRUG FL | | | | | | | CHEMOTHER, | | | | | | | IV INFUSION, | | | | | | | 1 HR FL | | | | | | | CHEMOTHER, | | | | | | | IV INFUSION, | | | | | | | EA HR FL | | | | | | | CHEMOTHER,NO | | | | | | | N-HORMONE | | | | | | | ANTI-NEOPL, | | | | | | | SUB-Q/IM FL | | | | | | | [...] + + + + | 09/26/ | [facility] | [facility] | Mohamud, | Diffuse large B-cell | | 2017 | Encounter | MED CTR CHEMO | Gerber Benson MD [address] | lymphoma of | | | | INFUSION [address] | [address] [place] | intra-abdominal | | | | [place], | [place] [address] | lymph nodes (HCC) | | | | [place] [address] | [phone] | | | | | [phone] | | | +--------+ + + + [...] | | | | | [place], [place] | | | | | | [address] | | | | | | | [...] | Basophils | | K/uL | [facility] | | | | | | [...] [address] | [place] | [phone] | | [facility] | | [address] | | | - LABORATORY | | [...] 16 | 7 - 18 mg/dL | [facility] | | | | | | [facility] | | | | | | MEDICAL | | | | | | CENTER - | | | | | | LABORATORY | | + + + + + + | Creatinine | 0.89 | 0.60 - 1.30 | [facility] | | | | | mg/dL | [facility] | | | | | | MEDICAL | | | | | | CENTER - | | | | | | LABORATORY | | + + + + + + | eGFR if not | >60Comment: GLOMERULAR | >=60 | [facility] | | | | FILTRATION | mL/min/1.73m2 | [facility] | | | EQUATORIAL GUINEAN | RATE,ESTIMATED | | MEDICAL | | | | mL/min/1.39k4Yfaa than | | CENTER - | | [...] [address] | [place] | [phone] | | [facility] | | [address] | | | - LABORATORY | | [...] [address] | [place] | [phone] | | [facility] | | [address] | | | - LABORATORY | | [...]
--- OUTSIDE RECORDS SUMMARY | ~2019-09-27 | XMS | Encounter Summary ---
Demographics + + + | Address | [address] | | | [place] [address] | + + + | Home Phone [...] [place] | | | | | [address] | | + + + + + Care Team Providers + +------+ + | Care Dewaxer Name | Role | Phone | + [...] | | Diffuse | Mohamud, | [address] | | | | | large B-cell | Joaquim C, | [place], | | | | | lymphoma of | MD [address] | [place] [address] | | | | | | [address] | Phone: | | | | | intra-abdomi | [place], | [phone] | | | | | nal lymph | [place] [address] | Fax: | | | | | nodes (HCC) | Phone: | [phone] | | | | | Procedures | [phone] | | | | | | CT Chest | Fax: | | | | | | Abdomen | [phone] | | | | | | Pelvis [...] + + | 11/07/ | Hospital | [facility] | Mohamud, | Diffuse large B-cell | | 2017 | Encounter | MED CTR MEDICAL | Joaquim Benson MD [address] | lymphoma of | | | | ONCOLOGY CLINIC [address] | [address] [place] | intra-abdominal | | | | [address] [place] | [place] [address] | lymph nodes (HCC) | | | | [place] [address] | [phone] | (Primary Dx) | | | | [phone] | | | +--------+ + + + [...] documented as of this encounter Progress Notes Joauqim Tejeda MD - 11/07/2016 8:39 AM PSTFormatting of this note might be differe nt from the original. Hematology/Oncology Progress Note [facility] [place] Pt. Name/Age/: Joaquim Sanchez Jr. 66 y.o. 1950 Med. Record Number: [id number] Date of admission: 11/07/2016 Identifying Statement: Joaquim Sanchez Jr. is a 66 y.o. male from [address] [address] with Diffuse Large B-Cell Lymphoma. The patient [...] lower extremity. CT abdomen/Pelvis with contrast 2016 ([facility]). Ex tensive periaortic lymphadenopathy (1.8 cm and 2.1 cm respectively), extensive adenopathy ex tending out along the left common iliac artery and encasing the left external iliac artery ( 4.4 cm) with compromise of the left external iliac vein. 2. Open laparotomy with LEFT ileal retroperitoneal lymph node biopsy ([facility], [facility]) June 242015. Specimen #[id number] ([facility]); Diffuse Large B-Cell lymph [...] September 04, 2016. 10. CT Abdomen/[facility]elvis at [facility] on September 12, 2016; Positive [...] months for two years starting today (P TIZEL protocol). Rios will receive his first maintenance infusion of rituximab today, then r eturn to clinic in two months for his second infusion. In the interval, he will undergo repe at imaging at the [facility] in [place], [place]. Review of Systems: Constitutional: Reports energy [...] RCA Internal jugular bard port-a-cath Right 08/11/2017 [place] Social History Social History Marital Status: Spouse [...] this chart may have been created with [employer] voice recognition software. Occasi onal wrong-word or [...] | | | | [place]per [place], [place] | | | | | | [address] | | | | | | | [...]
--- OUTSIDE RECORDS SUMMARY | ~2019-09-27 | XMS | Clinical Summary ---
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 Specimen #[id number] (Marcial, | | [facility]); Diffuse Large B-Cell lymphoma, germinal | [...] 04, 2016.10. CT Abdomen/Pelvis | | at [facility] on September 12, 2016; | [...] protocol).14. Repeat CT scan at | | [facility], [place], [place] on December 01, 2016 | | [...] 15. Repeat CT scan at [facility] on April 18, | | 2016 demonstrated [...] | mm 16. Repeat CT scan at [facility] on November 21, | | [...] lower | | extremity venous doppler 2016 ([facility]) No DVT left lower | | extremity. CT abdomen/Pelvis with contrast 2016 | | ([facility]). Extensive periaortic lymphadenopathy (1.8 cm and 2.1 cm | | respectively), extensive adenopathy extending out along the left | | common iliac artery and encasing the left external iliac artery | | (4.4 cm) with compromise of the left external iliac vein.2. Open | | laparotomy with LEFT ileal retroperitoneal lymph node biopsy | | ([place], [facility]) July 05, 2016. Specimen #[id number] (Marcial, | | [facility]); Diffuse Large B-Cell lymphoma, germinal | [...] 04, 2016.10. CT Abdomen/Pelvis | | at [facility] [place] on September 12, 2016; | | [...] protocol).14. Repeat CT scan at | | [facility], [place], [place] on December 01, 2016 | | [...] 15. Repeat CT scan at [facility] on April 18 | | 2016 demonstrated [...] | mm 16. Repeat CT scan at [facility] on November 21 | | [...] [address] scan at [facility] on | | September 09, [...] | | negative for any signs of [id number].Assessment; | | composite mixed diffuse large B-cell/follicular [...] | | | | | | [place] [id number] | | | | | | [phone] | | | | | | | [...] +------+-------+ + | MEDICARE | MEDICA | [id number] | | | [address] | | | RE | | | | [place] [address] | | | IP-OP | | | | | + +--------+ +------+-------+ + | PREMERA | PREMER | [id number] | | | [address] [address] | | | A BLUE | | | | [place], [place] | | | CROSS | | | | [phone] | | | FED | | | [...] | | al/Fam | | [phone] | [phone] | [place] | | | [place] | | | [phone] | [phone] | + +--------+ +--------+ + +
[~2019-09-27 09:18] MED LIST changes: +ASPIRIN81 MG PO; +DICLOFENAC SODI75 MG PO; +KRILL OIL 5001 EAC1 PO; +KRILL OIL500 MG PO; +LIPITOR10 MG PO; +MELATONIN3 M2 PO; +METFORMIN HCL500 MG PO; +OMEPRAZOLE20 M1 PO; +TRAZODONE HCL50 MG PO; +VITAMIN B122500 MCG PO; +VITAMIN D35000 UNI2 PO; +ZESTRIL5 MG PO
[2019-09-27] MEDS ORDERED: MECLIZINE HCL25 MG PO (11:36)
[2019-09-27] MEDS ORDERED: SUDOGEST30 MG PO (11:36)
--- NOTE | 2019-09-28 10:30 | EKG ---
[facility] [address] [facility] [address] [place] [address] Signed Sinus bradycardia with 1st degree AV block Left anterior fascicular block Nonspecific T wave abnormality Abnormal ECG When compared with ECG of 18-APR-2017 05:47, No significant change was found Confirmed by FLORINDA ESTRADA DO ([id number]) on 09/28/2019 10:30:42 AM Electronically Signed By: FLORINDA ESTRADA DO 09/28/19 1030 PATIENT NAME: JOAQUIM SANCHEZ Electrocardiogram DATE OF : 52 PHYSICIAN: FLORINDA ESTRADA DO REPORT #: [id number] REPORT IS CONFIDENTIAL AND NOT TO BE RELEASED WITHOUT AUTHORIZATION
== END 2019-09-27 11:43 | disposition home or self-care (01) ==
LOC: ED 09:18
DX: H83.09 Labyrinthitis, unspecified ear (principal); D72.819 Decreased white blood cell count, unspecified; D69.6 Thrombocytopenia, unspecified; Z86.73 Personal history of transient ischemic attack (TIA), and cerebral infarction without residual deficits; I10 Essential (primary) hypertension; I25.2 Old myocardial infarction; Z87.891 Personal history of nicotine dependence; Z88.5 Allergy status to narcotic agent; Z79.899 Other long term (current) drug therapy; Z79.84 Long term (current) use of oral hypoglycemic drugs; Z79.82 Long term (current) use of aspirin
CPT/HCPCS: 70450; 80053; 83735; 84484; 85025; 93005; 93010; 99284-25; J1100

== ENCOUNTER → 2020-01-25 | Emergency (ER) | payer MEDICARE, BC ==
[~2020-01-25] VITALS: Ht 188 cm; Wt 138.3 kg
[~2020-01-25] MED LIST changes: +MECLIZINE HCL25 MG PO; +SUDOGEST30 MG PO
--- OUTSIDE RECORDS SUMMARY | ~2020-01-25 | XMS | Encounter Summary ---
Demographics + + + | Address | [address] | | | [place] [address] | + + + | Home Phone | | + + + | Preferred Language | Unknown | + + + | Marital Status | | + + + | Sikhism Affiliation | 1013 | + + + | Race | Unknown | + + + | Ethnic Group | Unknown | + + + Author + + + | Author | [facility] | | | and [place] | + + + | Organization | [facility] | | | [...] [place] | | | | | [address] | | + + + + + Care Team Providers + +------+ + | Care Rn Acls Name | Role | Phone | + [...] | +--------+ + + + + | 08/03/ | Hospital | [facility] | [facility], | Diffuse large B-cell | | 2016 | Encounter | [facility] | Joaquim Benson MD [address] | lymphoma of | | | | [facility] [address] [place] | intra-abdominal | | | | [address] | [place] [address] | lymph nodes (HCC) | | | | [place] [address] | [phone] | (Primary Dx) | | | | [phone] | | | +--------+ + + + [...] + + + | Blood Pressure | 130/74 | 08/03/2016 1:34 PM | | | | | PST | | + + + + + | Pulse | 65 | 08/03/2016 1:34 PM | | | | | PST | | + + + + + | Temperature | 36.3 C (97.4 F) | 08/03/2016 1:34 PM | | | | | PST | | + + + + + | Respiratory Rate | 18 | 08/03/2016 1:34 PM | | | | | PST | | + + + + + | Oxygen Saturation | 96% | 08/03/2016 1:34 PM | | | | | PST | | + + + + + | Inhaled Oxygen | - | - | | | Concentration | | | | + + + + + | Weight | 134.9 kg (297 lb 4.8 | 08/03/2016 1:34 PM | | | | oz) | PST | | + + + + + | Height | - | - | | + + + + + | Body Mass Index | 38.17 | 07/18/2016 4:16 PM | | | | | PDT | | + + + + + documented in this encounter Discharge Instructions Instructions Joaquim Tejeda MD - 08/03/2016OPTIONAL SUPPLEMENTS 1) L-glutamine Powder; 15 grams dissolved in water twice a day. 2) Vitamin E 400 IU orally twice a day. 3) Ginseng: Azerbaijani ginseng ([place] ginseng) Panax quinquefolius 2000 mg a day or ginseng (Panax ginseng) 800 mg a day. documented in this encounter Medications at Time [...] + + | carvedilol (COREG) | Take 37.5 mg by | | 2 | 06/16/20 | | | 25 mg tablet | mouth 2 times daily | | | 16 | | | | (with breakfast & | | | | | | | dinner). Taking 1.5 | | | | | | | tabs twice daily. | | | | | [...] +---------+ + + | gabapentin | Take 200 mg by mouth | | 4 | 06/12/20 | | | (NEURONTIN) 100 mg | 2 times daily. 200 | | | 16 | | | capsule | mg in AM, 200 mg in | | | | | | | afternoon, also | | | | | | | taken with 300 mg in | | | | | | | evenings. | | | | | + + + +---------+ + + | gabapentin | Take 300 mg by mouth | | 2 | 07/13/20 | | | (NEURONTIN) 300 mg | nightly. | | | 16 | | | [...] + + + +---------+ + + | allopurinol | Take 1 tablet by | 30 | 0 | 07/21/20 | | | (ZYLOPRIM) 300 mg | mouth Daily. | tablet | | 16 | 6 | | tablet | | | | | | + + + +---------+ + + | atorvaSTATin | | | 1 | 05/21/20 | | | (LIPITOR) 40 mg | | | | 16 | 6 | | tablet | | | | | | + + + +---------+ + + | LORazepam (ATIVAN) | Take 1 tablet by | 20 | 5 | 07/25/20 | | | 1 mg | mouth every 6 hours | tablet | | 16 | 7 | | tabletIndications: | as needed | | | | | | Diffuse large B-cell | (Nausea/Vomiting). | | | | | | lymphoma of | | | | | | | intra-abdominal | | | | | | | lymph nodes (HCC) | | | | | | + + + +---------+ + + | omeprazole | Take 20 mg by mouth | | 0 | | | | (PRILOSEC) 20 mg | Daily. | | | | 7 | | capsule | | | | [...] hours as | | | 16 | 0 | | | needed. | | | | | + + + +---------+ + + | XARELTO 10 MG | Take 1 tablet by | 30 | 5 | 08/03/20 | | | tablet | mouth Daily for 30 | tablet | | 16 | 6 | | | days. | | | | | + + + +---------+ + + documented as of this encounter Progress Notes Joaquim Tejeda MD - 08/03/2016 1:37 PM PSTFormatting of this note might be differe nt from the original. Hematology/Oncology Progress Note [facility] [place] Pt. Name/Age/: Joaquim Sanchez 66 y.o. 1950 Med. Record Number: [id number] Date of admission: 08/03/2016 Identifying Statement: Joaquim Sanchez is a 66 y.o. male from [address] [address] with Diffuse Large B-Cell Lymphoma. The patient chart and medications were reviewed in detail and the patient was seen and exam ined. History of Present Illnesses, their Current Assessments and Plans: Problems That Were Updated This Visit Diffuse large B-cell lymphoma of intra-abdominal lymph nodes Overview ACTIVE DIAGNOSIS: Diffuse Large B-Cell Lymphoma, at least Stage III. 1. Presentation with a three month history of progressive Left lower extremity edema, urina ry frequency and bowel irregularity. Left lower extremity venous doppler 2016 (S ) No DVT left lower extremity. CT abdomen/Pelvis with contrast 2016 (ESTEE). Ex tensive periaortic lymphadenopathy (1.8 cm and 2.1 cm respectively), extensive adenopathy ex tending out along the left common iliac artery and encasing the left external iliac artery ( 4.4 cm) with compromise of the left external iliac vein. 2. Open laparotomy with LEFT ileal retroperitoneal lymph node biopsy (Praveen, ESTEE) June 242015. Specimen #[id number] ([facility]); Diffuse Large B-Cell lymph rcaiel, germinal center subtype (75%). 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 Overall Ki-67 expre ssion 70%. 3. PET/CT scan on 07/13/2016 was an incomplete study because the patient could not tolerate positioning but did demonstrate Left supraclavicular lymphadenopathy. 4. Cardiac Echocardiogram 07/24/2016; Ejection fraction 70%. 5. Patient declined bone marrow biopsy and aspiration. 6. Cycle#1 of RCHOP with peripheral iv access on July 25, 2016. Current Assessment & Plan Joaquim Atkinson" returned to clinic on 08/03/2016 with his , Mara for fol low up, Cycle #1 Day #10 of RCHOP chemotherapy. Review of systems is notable for the absence of nausea or vomiting. Clinical exam is notable for slight decrease in left lower extremity lymphedema. There is c hronic statis changes developing over the left ankle. Laboratory exam is notable for myelosuppression consistent with his exposure to RCHOP chemo therapy. Assessment; Stage III, potentially Stage IV (given that he was leukopenic at diagnosis) dif fuse large B-cell lymphoma. Plan; Joaquim will have a port-a-cath placed by Dr. Morton on August 10, 2016. He will retu rn on August 15, 2016 for cycle #2 of therapy. Extended office encounter with Diane regarding optional nutritional supplemen ts that they can use while on treatment. Review of Systems: Constitutional: Reports energy level continues to be low. Appetite has slightly decreased. Denies high fevers, shaking chills, anorexia, nausea, vomiting or weight loss. Ear, Nose, Mouth, Throat: Denies odynophagia, dysphagia, or tinnitus. Cardiovascular: Denies shortness of breath, dyspnea on exertion, chest pain, palpitations o r orthopnea. Respiratory: Denies cough, hemoptysis, or sputum production. Gastrointestinal: Reports constipation occasionally. Reports some intermittent abdominal pa in on the left lower area. Denies diarrhea, melena, or bright red blood per rectum. Genitourinary: Reports getting up at night to urinate, but it's less frequently. Denies he maturia or dysuria. Musculoskeletal: Reports back pain for years. Neurologic: Reports vision has been different, not as clear in the last month or more. Mundo es headache or numbness/tingling of the extremities. Endocrine: Reports edema in the entire left leg. Denies heat/cold intolerance. Hematologic: Denies spontaneous bruising or bleeding. Integumentary: Reports a rash on the left leg for the last few days. Pain: Denies pain today. ROS: otherwise normal Note: Patient here for Follow up and labs with Dr. Tejeda. Reports a rash on his left leg for the last couple days. My chart: Active Scheduled Medications: Current Outpatient Prescriptions Medication Sig Dispense Refill allopurinol (ZYLOPRIM) 300 mg tablet Take 1 tablet by mouth Daily. 30 tablet 0 aspirin 81 mg EC tablet Take 162 mg by mouth Daily. atorvaSTATin (LIPITOR) 40 mg tablet 1 carvedilol (COREG) 25 mg tablet Take 50 mg by mouth Daily. 2 cetirizine (ZYRTEC) 10 mg tablet Take 10 mg by mouth Daily. clotrimazole-betamethasone (LOTRISONE) cream Apply topically 2 times daily. gabapentin (NEURONTIN) 100 mg capsule Take 200 mg by mouth Daily. 4 gabapentin (NEURONTIN) 300 mg capsule Take 300 mg by mouth Daily. 2 levothyroxine (SYNTHROID, LEVOTHROID) 50 mcg tablet 3 LORazepam (ATIVAN) 1 mg tablet Take 1 tablet by mouth every 6 hours as needed (Nausea/V omiting). 20 tablet 5 omeprazole (PRILOSEC) 20 mg capsule Take 20 mg by mouth every morning (before breakfast ). ondansetron (ZOFRAN) 8 MG tablet Take 1 tablet by mouth 2 times daily. For two days aft er each chemo and then may take one tab every 8 hours if needed for nausea 30 tablet 3 XARELTO 10 MG tablet Take 1 tablet by mouth Daily for 30 days. 30 tablet 5 No current facility-administered medications for this encounter. Allergies: Allergy: Allergies Allergen Reactions Codeine "wires him up" Past Medical and Surgical History, Social History and Problems: Past Medical History Diagnosis Date Chronic ischemic heart disease Depression Dyspnea Esophageal reflux Hyperglycemia Hyperlipemia Hypertension Benign neoplasm of colon Obesity Superficial injury of forearm Past Surgical History Procedure Laterality Date Cholecystectomy Knee surgery Bilateral Tonsillectomy and adenoidectomy Inguinal hernia repair incarcerated Stent 2014 RCA Social History Social History Marital Status: Spouse Name: N/A Number of Children: N/A Years of Education: N/A Occupational History Not on file. Social History Main Topics Smoking status: Former Smoker -- 3.00 packs/day for 22 years Quit date: 07/18/1990 Smokeless tobacco: Never Used Alcohol Use: Yes Comment: Occasionally - Drug Use: No Sexual Activity: Partners: Female Other Topics Concern Not on file Social History Narrative Patient Active Problem List Diagnosis Diffuse large B-cell lymphoma of intra-abdominal lymph nodes Objectives: Temp: 36.3 C (97.4 F) BP: 130/74 mmHg Pulse: 65 Resp: 18 SpO2: 96 % on Min/Max Temp past 24 hours:No Data Recorded No intake or output data in the 24 hours ending 08/06/16 1026 Wt. Admission: Weight: 134.854 kg (297 lb 4.8 oz) Wt. Current: Weight: 134.854 kg (297 lb 4.8 oz) Wt Readings from Last 3 Encounters: 08/03/16 134.854 kg (297 lb 4.8 oz) 07/25/16 135.217 kg (298 lb 1.6 oz) 07/18/16 135.762 kg (299 lb 4.8 oz) Physical Exam: General: The patient is alert and oriented. In no distress. Eyes: Conjunctiva clear. Sclera anicteric. ENMT: Oropharynx fee of lesions, mucous membranes moist. Cardiovascular: Regular rate and rhythm, no rubs, gallops, or murmurs. Lungs: Clear to auscultation and percussion. Abdomen: Soft, nontender, no hepatospenomegaly. No palpable masses. Bowel sounds present. Infraumbilical surgical scar is well-healed. : No scrotal edema. Extremities: 3+ asymmetrical LEFT lower extremity lymphedema to the inguinal crease. Skin: No rashes, bruising, or petechiae. Stasis changes over the LEFT ankle. Lymph: No palpable nodes in the neck, supraclavicular fossa, axilla or groin. Neurological: Cranial nerves are intact. Normal sensory and motor function, No focal defi cits noted. Muscular/Skeletal: No acute bony tenderness. No evidence of sarcopenia. Psychiatric: Normal mood and affect. ECOG Performance Status [x] 0 [] 1 [] 2 []3 [] 4 ECOG [...] Oncol.: Davida Ma., Rebel REdita., Andie Menezes., Michael Trejo., Michael, TDusty., Dara, E.T., Fatoumata, P .P.: Toxicity And Response Criteria [...] Assessment and Plan. Results for JOAQUIM SANCHEZ ( ) as of 08/06/2016 10:23 Ref. Range 08/03/2016 13:19 WBC Latest Ref Range: 4.0-11.0 K/uL 1.4 (LL) RBC: Latest Ref Range: 4.30-5.70 M/uL 3.60 (L) Hgb Latest Ref Range: 13.5-18.0 g/dL 10.3 (L) Hct, Final Latest Ref Range: 40.0-51.0 % 30.4 (L) MCV Latest Ref Range: 83.0-101.0 fL 84.5 MCH Latest Ref Range: 28.0-35.0 pg 28.7 MCHC Latest Ref Range: 32.0-36.0 g/dL 34.0 RDW-CV Latest Ref Range: <15.0 % 16.6 (H) Platelet Count Latest Ref Range: 140-440 K/uL 68 (L) MPV Latest Units: fL 9.0 Absolute Neutrophils Latest Ref Range: 1.80-8.50 K/uL 0.60 (L) Absolute Lymphocytes Latest Ref Range: 0.60-3.20 K/uL 0.60 Absolute Monocytes Latest Ref Range: 0.00-1.00 K/uL 0.20 Absolute Eosinophils Latest Ref Range: 0.00-0.40 K/uL 0.00 Absolute Basophils Latest Ref Range: 0.00-0.10 K/uL 0.00 % Neutrophils Latest Ref Range: 45.0-82.0 % 40.2 (L) % Lymphocytes Latest Ref Range: 20.0-45.0 % 44.0 % Monocytes Latest Ref Range: 4.0-12.0 % 11.4 % Eosinophils Latest Ref Range: 0.0-5.0 % 3.3 % Basophils Latest Ref Range: 0.0-1.0 % 1.1 (H) NA Latest Ref Range: 136-149 mmol/L 138 K Latest Ref Range: 3.5-5.1 mmol/L 4.0 Chloride Latest Ref Range: 98-109 mmol/L 105 Carbon dioxide Latest Ref Range: 24-31 mmol/L 30 ANION GAP Latest Ref Range: 3-16 mmol/L 3 GLUCOSE Latest Ref Range: 70-109 mg/dL 107 BUN Latest Ref Range: 7-18 mg/dL 13 BUN/CREA Unknown 13.4 Creatinine Latest Ref Range: 0.60-1.30 mg/dL 0.97 ALBUMIN Latest Ref Range: 3.2-5.0 g/dL 3.3 Albumin/Globulin ratio Latest Ref Range: 0.8-2.0 1.6 Total protein Latest Ref Range: 6.0-7.8 g/dL 5.4 (L) EGFR IF NOT Latest Ref Range: >=60 mL/min/1.73m2 >60 Calcium Latest Ref Range: 8.3-10.5 mg/dL 9.2 ALK PHOS Latest Ref Range: 40-110 U/L 50 ALT (SGPT) (REF) Latest Ref Range: 6-45 U/L 25 AST (SGOT) (REF) Latest Ref Range: 10-42 U/L 18 LDH TOTAL Latest Ref Range: 91-180 U/L 152 BILIRUBIN TOTAL Latest Ref Range: 0.1-1.5 mg/dL 0.5 GLOBULIN Latest Ref Range: 2.1-3.8 g/dL 2.1 Pharmacovigilance: Palliative Care: Patient's Medications New Prescriptions No medications on file Modified Medications Modified Medication Previous Medication XARELTO 10 MG TABLET XARELTO 10 MG tablet Take 1 tablet by mouth Daily for 30 days. Discontinued Medications No medications on file Procedure: JOAQUIM TEJEDA MD Portions of this chart may have been created with [employer] voice recognition software. Occasi onal wrong-word or [...] Description | +--------+---------+ + + + | 05/19/ | Office | Cardiology | Karen Bansal, | | | 2019 | Visit | | MD [address] | | | | | | [place] | | | | | | [address] | | | | | | | | +--------+---------+ + + + documented as of this encounter Procedures + +--------+ + + + | Procedure Name | Priori | Date/Time | Associated Diagnosis | Comments | | | ty | | | | + +--------+ + + + | CBC WITH | STAT | 08/03/2016 | Diffuse large | Results for this | | DIFFERENTIAL | | 1:19 PM | B-cell lymphoma of | procedure are in the | | | | PST | intra-abdominal | results section. | | | | | lymph nodes (HCC) | | + +--------+ + + + | LACTATE | STAT | 08/03/2016 | Diffuse large | Results for this | | DEHYDROGENASE | | 1:19 PM | B-cell lymphoma of | procedure are in the | | | | PST | intra-abdominal | results section. | | | | | lymph nodes (HCC) | | + +--------+ + + + | COMPREHENSIVE | STAT | 08/03/2016 | Diffuse large | Results for this | | METABOLIC PANEL | | 1:19 PM | B-cell lymphoma of | procedure are in the | | | | PST | intra-abdominal | results section. | | | | | lymph nodes (HCC) | | + +--------+ + + + documented in this encounter Results Lactate Dehydrogenase (08/03/2016 1:19 PM PST) + +-------+ + + + | Component | Value | Ref Range | Performed | Pathologist | | | | | At | Signature | + +-------+ + + + | LDH TOTAL | 152 | 91 - 180 U/L | [facility] | | | | | | [facility] | | | | | | [facility] | | | | | | [facility] - | | | | | | LABORATORY | | + +-------+ + + + + + | Specimen | + + | Blood | + + + + + + + | Performing | Address | City/State/Zipcode | Phone Number | | Organization | | | | + + + + + | [facility] | [address] | [place], [place] | [phone] | | [facility] | | [address] | | | - LABORATORY | | | | + + + + + Comprehensive Metabolic Panel (08/03/2016 1:19 PM PST) + + + + + + | Component | Value | Ref Range | Performed | Pathologist | | | | | At | Signature | + + + + + + | Na | 138 | 136 - 149 | [facility] | | | | | mmol/L | [facility] | | | | | | [facility] | | | | | | CENTER - | | | | | | LABORATORY | | + + + + + + | K | 4.0 | 3.5 - 5.1 | [facility] | | | | | mmol/L | [facility] | | | | | | [facility] | | | | | | C[facility] - | | | | | | LABORATORY | | + + + + + + | Cl | 105 | 98 - 109 mmol/L | [facility] | | | | | | [facility] | | | | | | [facility] | | | | | | [facility] - | | | | | | LABORATORY | | + + + + + + | CO2 | 30 | 24 - 31 mmol/L | [facility] | | | | | | [facility] | | | | | | [facility] | | | | | | [facility] - | | | | | | LABORATORY | | + + + + + + | Anion Gap | 3 | 3 - 16 mmol/L | [facility] | | | | | | [facility] | | | | | | [facility] | | | | | | C[facility] - | | | | | | LABORATORY | | + + + + + + | Glucose | 107 | 70 - 109 mg/dL | [facility] | | | | | | [facility] | | | | | | [facility] | | | | | | CENTER - | | | | | | LABORATORY | | + + + + + + | BUN | 13 | 7 - 18 mg/dL | [facility] | | | | | | [facility] | | | | | | MEDICAL | | | | | | CENTER - | | | | | | LABORATORY | | + + + + + + | Creatinine | 0.97 | 0.60 - 1.30 | [facility] | | | | | mg/dL | [facility] | | | | | | MEDICAL | | | | | | CENTER - | | | | | | LABORATORY | | + + + + + + | eGFR if not | >60Comment: GLOMERULAR | >=60 | [facility] | | | | FILTRATION | mL/min/1.73m2 | [facility] | | | [facility]I | RATE,ESTIMATED | | MEDICAL | | | | mL/min/1.04h4Umbd than | | CENTER - | | | | 60 Chronic kidney | | LABORATORY | | | | disease,if found over a | | | | | | 3-month period.Less than | | | | | | 15 Kidney failureFor | | | | | | | | | | | | Americans,multiply the | | | | | | calculated GFR by 1.21. | | | | | | | | | | + + + + + + | Calcium | 9.2 | 8.3 - 10.5 | [facility] | | | | | mg/dL | [facility] | | | | | | MEDICAL | | | | | | CENTER - | | | | | | LABORATORY | | + + + + + + | Albumin | 3.3 | 3.2 - 5.0 g/dL | [facility] | | | | | | [facility] | | | | | | [facility]ICAL | | | | | | CENTER - | | | | | | LABORATORY | | + + + + + + | Bilirubin | 0.5Comment: This is an | 0.1 - 1.5 mg/dL | [facility] | | | Total | appended report. These | | [facility] | | | | results have been | | MEDICAL | | | | appended to a previously | | CENTER - | | | | preliminary verified | | LABORATORY | | | | report. | | | | + + + + + + | Total | 5.4 (L) | 6.0 - 7.8 g/dL | [facility] | | | Protein | | | [facility] | | | | | | MEDICAL | | | | | | CENTER - | | | | | | LABORATORY | | + + + + + + | AST | 18Comment: This is an | 10 - 42 U/L | [facility] | | | | appended report. These | | [facility] | | | | results have been | | MEDICAL | | | | appended to a previously | | CENTER - | | | | preliminary verified | | LABORATORY | | | | report. | | | | + + + + + + | ALT | 25Comment: This is an | 6 - 45 U/L | [facility] | | | | appended report. These | | [facility] | | | | results have been | | MEDICAL | | | | appended to a previously | | CENTER - | | | | preliminary verified | | LABORATORY | | | | report. | | | | + + + + + + | Alkaline | 50Comment: This is an | 40 - 110 U/L | [facility] | | | Phosphatase | appended report. These | | [facility] | | | | results have been | | MEDICAL | | | | appended to a previously | | CENTER - | | | | preliminary verified | | LABORATORY | | | | report. | | | | + + + + + + | Globulin | 2.1 | 2.1 - 3.8 g/dL | [facility] | | | | | | [facility] | | | | | | MEDICAL | | | | | | CENTER - | | | | | | LABORATORY | | + + + + + + | Albumin/Pooja | 1.6 | 0.8 - 2.0 | [facility] | | | bulin Ratio | | | [facility] | | | | | | [facility] | | | | | | CENTER - | | | | | | LABORATORY | | + + + + + + | BUN/Creatin | 13.4 | | [facility] | | | ine Ratio | | | [facility] | | | | | | MEDICAL | | | | | | CENTER - | | | | | | LABORATORY | | + + + + + + + + | Specimen | + + | Blood | + + + + + + + | Performing | Address | City/State/Zipcode | Phone Number | | Organization | | | | + + + + + | [facility] | [address] | [place] | [phone] | | [facility] | | [address] | | | - LABORATORY | | | | + + + + + CBC with Differential (08/03/2016 1:19 PM PST) + + + + + + | Component | Value | Ref Range | Performed | Pathologist | | | | | At | Signature | + + + + + + | WBC | 1.4 (LL)Comment: | 4.0 - 11.0 K/uL | [facility] | | | | Critical Result called | | [facility] | | | | to and read back by | | MEDICAL | | | | Brenda Florentino RN on | | CENTER - | | | | 08/03/2016 at 15:10 by | | LABORATORY | | | | Mariajose Barrett. | | | | + + + + + + | RBC | 3.60 (L) | 4.30 - 5.70 | [facility] | | | | | M/uL | [facility] | | | | | | MEDICAL | | | | | | CENTER - | | | | | | LABORATORY | | + + + + + + | Hemoglobin | 10.3 (L) | 13.5 - 18.0 | [facility] | | | | | g/dL | [facility] | | | | | | MEDICAL | | | | | | CENTER - | | | | | | LABORATORY | | + + + + + + | Hematocrit | 30.4 (L) | 40.0 - 51.0 % | [facility] | | | | | | [facility] | | | | | | [facility] | | | | | | CENTER - | | | | | | LABORATORY | | + + + + + + | MCV | 84.5 | 83.0 - 101.0 fL | [facility] | | | | | | [facility] | | | | | | [facility] | | | | | | CENTER - | | | | | | LABORATORY | | + + + + + + | MCH | 28.7 | 28.0 - 35.0 pg | [facility] | | | | | | [facility] | | | | | | [facility] | | | | | | CENTER - | | | | | | LABORATORY | | + + + + + + | MCHC | 34.0 | 32.0 - 36.0 | [facility] | | | | | g/dL | [facility] | | | | | | [facility] | | | | | | CENTER - | | | | | | LABORATORY | | + + + + + + | RDW-CV | 16.6 (H) | <15.0 % | [facility] | | | | | | [facility] | | | | | | [facility] | | | | | | CENTER - | | | | | | LABORATORY | | + + + + + + | Platelet | 68 (L) | 140 - 440 K/uL | [facility] | | | Count | | | [facility] | | | | | | [facility] | | | | | | CENTER - | | | | | | LABORATORY | | + + + + + + | MPV | 9.0 | fL | [facility] | | | | | | [facility] | | | | | | [facility] | | | | | | CENTER - | | | | | | LABORATORY | | + + + + + + | % | 40.2 (L) | 45.0 - 82.0 % | [facility] | | | Neutrophils | | | [facility] | | | | | | [facility] | | | | | | CENTER - | | | | | | LABORATORY | | + + + + + + | % | 44.0 | 20.0 - 45.0 % | [facility] | | | Lymphocytes | | | [facility] | | | | | | [facility] | | | | | | CENTER - | | | | | | LABORATORY | | + + + + + + | % Monocytes | 11.4 | 4.0 - 12.0 % | [facility] | | | | | | [facility] | | | | | | [facility] | | | | | | CENTER - | | | | | | LABORATORY | | + + + + + + | % | 3.3 | 0.0 - 5.0 % | [facility] | | | Eosinophils | | | [facility] | | | | | | [facility] | | | | | | CENTER - | | | | | | LABORATORY | | + + + + + + | % Basophils | 1.1 (H) | 0.0 - 1.0 % | [facility] | | | | | | [facility] | | | | | | [facility] | | | | | | CENTER - | | | | | | LABORATORY | | + + + + + + | Absolute | 0.60 (L) | 1.80 - 8.50 | [facility] | | | Neutrophils | | K/uL | [facility] | | | | | | [facility] | | | | | | CENTER - | | | | | | LABORATORY | | + + + + + + | Absolute | 0.60 | 0.60 - 3.20 | [facility] | | | Lymphocytes | | K/uL | [facility] | | | | | | [facility] | | | | | | CENTER - | | | | | | LABORATORY | | + + + + + + | Absolute | 0.20 | 0.00 - 1.00 | [facility] | | | Monocytes | | K/uL | [facility] | | | | | | [facility] | | | | | | CENTER - | | | | | | LABORATORY | | + + + + + + | Absolute | 0.00 | 0.00 - 0.40 | [facility] | | | Eosinophils | | K/uL | [facility] | | | | | | MEDICAL | | | | | | CENTER - | | | | | | LABORATORY | | + + + + + + | Absolute | 0.00 | 0.00 - 0.10 | [facility] | | | Basophils | | K/uL | [facility] | | | | | | [facility] | | | | | | CENTER - | | | | | | LABORATORY | | + + + + + + + + | Specimen | + + | Blood | + + + + + | Narrative | Performed At | + + + | No immature cells seen on smear review. | [facility] | [facility] | | | - LABORATORY | + + + + + + + + | Performing | Address | City/State/Zipcode | Phone Number | | Organization | | | | + + + + + | [facility] | [address] | [place] | [phone] | | [facility] | | [address] | | | - LABORATORY | | | | + + + + + documented in this encounter Visit Diagnoses + + | Diagnosis | + + | 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
--- OUTSIDE RECORDS SUMMARY | ~2020-01-25 | XMS | Encounter Summary ---
Demographics + + + | Address | [address] | | | [place] [address] | + + + | Home Phone | | + + + | Preferred Language | Unknown | + + + | Marital Status | | + + + | Yazdanism Affiliation | 1013 | + + + | Race | Unknown | + + + | Ethnic Group | Unknown | + + + Author + + + | Author | [facility] | | | and [place] | + + + | Organization | [facility] [place] | | | and [place] | + + + | Address | Unknown | + + + | Phone | Unavailable | + + + Support + + + + + | Name | Relationship | Address | Phone | + + + + + | Mara Galindo | ECON | [address] | | | | | [place] | | | | | [address] | | + + + + + Care Team Providers + +------+ + | Care Glass Loading Equipment Tender Name | Role | Phone | + +------+ + | Earle Chacko MD | PCP | | + +------+ + Reason for Visit + + + | Reason | Comments | + + + | Breast Cancer | Lymphoma | + + + Encounter Details +--------+ + + + + | Date | Type | Department | Care Team | Description | +--------+ + + + + | 08/14/ | Hospital | [facility] | Mohamud, | Diffuse large B-cell | | 2016 | Encounter | MED CTR NUTRITION | Gerber Benson MD [address] | lymphoma of | | | | SERVICES [address] [place] | intra-abdominal | | | | [place], | [place] [address] | lymph nodes (HCC) | | | | [place] [address] | [phone] | (Primary Dx) | | | | [phone] | | | | | | | Alonzo Walker V, | | | | | | RDN | | +--------+ + + + + [...] + + documented as of this encounter Medications at Time of Discharge [...] + + + +---------+ + + | predniSONE | Take 5 tablets by | 25 | 4 | 08/14/20 | | | (DELTASONE) 20 mg | mouth Daily for 5 | tablet | | 16 | 6 | | tablet | days. | | | | | [...] documented as of this encounter Progress Notes Alonzo Walker V, RDN - 08/15/2016 9:00 AM PSTFormatting of this note might be different f rom the original. Medical Nutrition Note SUBJECTIVE: I talked with Gerber's today during his chemotherapy treatment. Gerber wa s sleepy and did not contribute to our conversation. She stated that his intake varies, he h as some 'bad' days. Mostly though he has a fair-good appetite and intake. His weight has b een relatively stable. Prior to the cancer dx he had intentionally lost ~30 lbs. She feels as if they eat a healthy diet but feels Gerber should be eating more vegetables. OBJECTIVE: Written material was provided and discussed that offered suggestions for eating during and after cancer treatment. Anti-inflammatory foods were explained and encouraged dao magallanes. Suggestions for adding calories and protein were also provided to use as needed for da ys he does not feel like eating. Wt Readings from Last 3 Encounters: 08/14/16 135.716 kg (299 lb 3.2 oz) 08/03/16 134.854 kg (297 lb 4.8 oz) 11/01/16 135.217 kg (298 lb 1.6 oz) Ht Readings from Last 1 Encounters: 07/18/16 1.88 m (6' 2") ASSESSMENT/PLAN: His diet hx suggests good overall meal management. He is weight has been mostly stable. Pt's asked questions and verbalized a good understanding of the issues presented. Interventions: 1. As noted above Nutrition Goals: 1. Stable weight during treatment 2. Good overall intake with increased intake of anti-inflammatory foods Monitor: 1. Will f/u as needed Time spent: 30 mintues Thank you for the referral, ALONZO WALKER RDN 08/15/2016 9:01 documented in this encounter Plan of Treatment +--------+---------+ + + + | Date | Type | Specialty | Care Team | Description | +--------+---------+ + + + | 05/19/ | Office | Cardiology | Karen Bansal, | | | 2019 | Visit | | MD Patricia JOHNSON | | | | | | [place] | | | | | | [address] | | | | | | | | +--------+---------+ + + + documented as of this encounter Visit Diagnoses + + | Diagnosis | + + | 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
--- OUTSIDE RECORDS SUMMARY | ~2020-01-25 | XMS | Encounter Summary ---
Demographics + + + | Address | [address] | | | [place] [address] | + + + | Home Phone | | + + + | Preferred Language | Unknown | + + + | Marital Status | | + + + | Caodaism Affiliation | 1013 | + + + | Race | Unknown | + + + | Ethnic Group | Unknown | + + + Author + + + | Author | [facility] | | | and [place] | + + + | Organization | [facility] | | | [...] [place] | | | | | [address] | | + + + + + Care Team Providers + +------+ + | Care Tool Grinding Technician Name | Role | Phone | + +------+ + | Earle Chacko MD | PCP | | + +------+ + Reason for Visit + + + | Reason | Comments | + + + | Follow-up | | + + + Evaluate & Treat (Routine) +--------+--------+ + + + + | Status | Reason | Specialty | Diagnoses / | Referred By | Referred To | | | | | Procedures | Contact | Contact | +--------+--------+ + + + + | Closed | | Medical | Diagnoses | [facility] | | | | | Oncology / | Mixed | Medical | Mohamud, | | | | Oncology | Diffuse | Oncology | Joaquim Benson MD | | | | | Large | Clinic [address] | | | | | B-Cell/Folli | [address] [place] | | | | | cular | [place], | [place], [place] | | | | | Lymphoma | [place] | [address] Phone: | | | | | Procedures | [address] | [phone] | | | | | [address] | Phone: | Fax: | | | | | | [phone] | [phone] | | | | | | Fax: | | | | | | | [phone] | | +--------+--------+ + + + + Encounter Details +--------+ + + + + | Date | Type | Department | Care Team | Description | +--------+ + + + + | 01/28/ | Hospital | [facility] | Mohamud, | Diffuse large B-cell | | 2018 | Encounter | MED CTR MEDICAL | Joaquim Benson MD [address] | lymphoma of | | | | ONCOLOGY CLINIC [address] [place] | intra-abdominal | | | | [address] [place] | [place] [address] | lymph nodes (HCC) | | | | [place] [address] | [phone] | | | | | [phone] | | | +--------+ + + + [...] + + + | Blood Pressure | 135/73 | 01/28/2018 8:47 AM | | | | | PDT | | + + + + + | Pulse | 53 | 01/28/2018 8:47 AM | | | | | PDT | | + + + + + | Temperature | 35.8 C (96.4 F) | 01/28/2018 8:47 AM | | | | | PDT | | + + + + + | Respiratory Rate | 18 | 01/28/2018 8:47 AM | | | | | PDT | | + + + + + | Oxygen Saturation | 95% | 01/28/2018 8:47 AM | | | | | PDT | | + + + + + | Inhaled Oxygen | - | - | | | Concentration | | | | + + + + + | Weight | 147.6 kg (325 lb 6.4 | 01/28/2018 8:47 AM | | | | oz) | PDT | | + + + + + | Height | - | - | | + + + + + | Body Mass Index | 41.78 | 07/18/2016 4:16 PM | | | [...] COMPLEX | needed. | | | | 0 | | PO) | | | | | | + + + +---------+ + + | LORazepam (ATIVAN) | Take 1 mg by mouth | | 0 | | | | 1 mg tablet | Daily as needed for | | | | 8 | | | Anxiety. | | | | | + + + +---------+ + + | melatonin 5 mg | Take by mouth | | 0 | | | | tablet | nightly as needed. | | | | 8 | + + + +---------+ + + | Multiple Vitamin | Take by mouth. | | 0 | | | | (MULTIVITAMINS PO) | Micro plex VMz | | | | 0 | | | doTERRA supplement | | | | | + + + +---------+ + + | omeprazole | Take 20 mg by mouth | | 0 | | | | (PRILOSEC) 20 mg | every morning | | | | 0 | | capsule | (before breakfast). | [...] | PO | | | | | 0 | + + + +---------+ + + [...] as of this encounter Progress Notes Joaquim Mallory MD - 01/28/2018 8:34 AM PDTFormatting of this note might be differe nt from the original. Hematology/Oncology Progress Note [facility] [place] Pt. Name/Age/: Joaquim Sanchez Jr. 67 y.o. 1950 [facility]. Record Number: [id number] Date of admission: 01/28/2018 The patient's primary care provider is Kelsey Quintanilla MD. Identifying Statement: Joaquim Sanchez Jr. is a 67 y.o. male from [address] [place] [address] with Mixed Diffuse Large B-Cell/Follicular Lymphoma in [...] lower extremity. CT abdomen/Pelvis with contrast 2016 ([facility]). Ex tensive periaortic lymphadenopathy (1.8 cm and 2.1 cm respectively), extensive adenopathy ex tending out along the left common iliac artery and encasing the left external iliac artery ( 4.4 cm) with compromise of the left external iliac vein. 2. Open laparotomy with LEFT ileal retroperitoneal lymph node biopsy ([place], [facility]) June 242015. Specimen #[id number] ([facility]); Diffuse Large B-Cell lymph raciel, germinal [...] September 04, 2016. 10. CT Abdomen/Pelvis at [facility] on September 12, 2016; Positive Response when [...] adverse effe ct on November 07, 2016 fatigue, nausea (without emesis), night sweats, dysphagia, dyspepsia , numbness in the fingers and toes which has progressed in the lower extremities to include painful dysesthesias, dysuria, insomnia, decreased mental acuity and separation of the toena ils from the nailbeds, headaches and decreased visual acuity, chest pain and palpitations, a nd dyspnea on exertion, rhinorrhea and epiphora) and crossed over to rituximab maintenance 3 75 mg/m once ever two months for two years (PRIMA protocol). 14. Repeat CT scan at [place], [place] on December 01, [address] [...] [address]. [address] scan at [facility] on April 18, 2017 demonstrated decreased left [...] x 21 mm 21 X [address] scan at [facility] on November 21, 2017 demonstrated decreased left iliac lymph node chain adenopathy. Region 2015Sep 12, 2016 Dec 01, 2016 Apr 18, 2017 Nov 21, 2017 RIGHT Retroperitoneal 18 mm 6 mm resolved resolved resolved LEFT Retroperitoneal 21 mm resolved resolved resolved resolved LEFT iliac artery 22 x 26 mm 14 x 22 mm resolved resolved resolved Left Iliac lymph node chain 60 x 40 mm 28 x 28 mm 31 x 21 mm 21 X 19 mm 18 x 15 mm Current Assessment & Plan Joaquim Sanchez Jr. returned to clinic on 01/28/2018 with his , Mara, for follow -up and treatment of composite diffuse large B-cell/follicular B-cell lymphoma. Rios continues to use a 32 chamber intermittent pneumatic compression garment 90 minutes a day at home for disease-related left lower extremity lymphedema. Review of systems is notable for the fact that Hazels cough has resolved without specific i ntervention. Clinical exam is negative for adenopathy. Laboratory exam is notable for a normal LDH. Assessment; Composite B-cell lymphoma, at least stage IIIA. Plan; Proceed with Cycle #9 maintenance rituximab therapy today. Return in two months for Cycle #10 of a planned 12 maintenance cycles of rituximab. Consider repeat imaging after cycle #12. Review of Systems: REVIEW OF SYSTEMS Constitutional: Reports energy level is okay, "been tired, sometimes not sleeping well at n ight". Denies high fevers, shaking chills, anorexia, nausea, vomiting, or night sweats. Appe tite without changes. Ear, Nose, Mouth, Throat:Reports had a few sores "after the last session, but not bad". Rep orts intermittent tinnitus "had some after the last session", continues, unchanged since las t visit. Denies dysphagia. Cardiovascular: Reports shortness of breath with exertion, continues, unchanged. Denies mika rtness of breath, chest pain, palpitations or orthopnea. Respiratory: Reports occasional cough and sputum production "I need to cough something up, and will cough real deep, not often,usually from dairy products". Denies hemoptysis. Gastrointestinal: Denies abdominal pain, constipation, diarrhea, melena, or bright red bloo d per rectum. Genitourinary: Denies hematuria or dysuria. Musculoskeletal: Reports chronic joint pain continues, especially in bilateral knees, ankle s, and feet unchanged. Neurologic: Reports numbness and tingling in bilateral feet continues, unchanged. Denies he adache or visual changes. Endocrine: Reports swelling in left leg and foot from lymphedema continues unchanged "citlaly ne has helped me, inconvenient, but leg pain is better". Denies heat/cold intolerance. Hematologic: Denies spontaneous bruising or bleeding. Integumentary: Denies rash, wounds or other skin concerns. Pain: Denies pain. Note: Here for follow up, labs, and treatment. Here with today. My chart: Declined Review of systems as above otherwise negative [...] tablet Take 10 mg by mouth Daily. LORazepam (ATIVAN) 1 mg tablet Take 1 mg by mouth Daily as needed for Anxiety. melatonin 5 mg tablet Take by mouth nightly as needed. Multiple Vitamin (MULTIVITAMINS PO) Take by mouth. Micro plex VMz doTERRA supplement omeprazole (PRILOSEC) 20 mg capsule Take 20 mg by mouth every morning (before breakfast ). traMADol (ULTRAM) 50 mg tablet Take 50 mg by mouth every 6 hours as needed. VITAMIN E COMPLEX PO Take by mouth. XARELTO 10 MG tablet Take 1 tablet by mouth Daily. 30 tablet 1 No current facility-administered medications for this encounter. Facility-Administered Medications Ordered in Other Encounters Medication Dose Route Frequency Provider Last Rate Last Dose ethyl chloride spray Topical PRN Joaquim Mallory MD heparin 100 units/mL flush injection 500 Units 5 mL Intercatheter PRN Joaquim robles MD 500 Units at 01/28/18 1325 Allergies: Allergy: Allergies Allergen Reactions Codeine "wires [...] Lymphedema of left lower extremity Objectives: Temp: 35.8 C (96.4 F) BP: 135/73 Pulse: 53 Resp: 18 SpO2: 95 % on Min/Max Temp past 24 hours:Temp Av.8 C (96.4 F) Min: 35.8 C (96.4 F) Max: 3 5.8 C (96.4 F) No intake or output data in the 24 hours ending 01/28/18 1938 Wt. Admission: Weight: (!) 147.6 kg (325 lb 6.4 oz) Wt. Current: Weight: (!) 147.6 kg ( 325 lb 6.4 oz) Wt Readings from Last 3 Encounters: 01/28/18 (!) 147.6 kg (325 lb 6.4 oz) 12/03/17 (!) 147 kg (324 lb 1.2 oz) 10/09/17 (!) 148.4 kg (327 lb 2.6 oz) Body mass index is 41.78 kg/m. Physical Exam: General: The patient is [...] Compression garment on the left lower extremity. Skin: No rashes, bruising, or petechiae. Lymph: [...] Ma., Rebel REdita., Andie Menezes., Donal Trejo, Vy Rodriguez., Draa EChristianT., Fatoumata, P .P.: Toxicity And Response Criteria [...] JOAQUIM SANCHEZ JR. ( ) as of 01/28/2018 19:34 Ref. Range 01/28/2018 08:06 WBC Latest Ref Range: 4.0 - 11.0 K/uL 3.4 (L) RBC COUNT Latest Ref Range: 4.30 - 5.70 M/uL 4.38 Hgb Latest Ref Range: 13.5 - 18.0 g/dL 12.9 (L) Hct, Final Latest Ref Range: 40.0 - 51.0 % 37.9 (L) MCV Latest Ref Range: 83.0 - 101.0 fL 86.5 MCH Latest Ref Range: 28.0 - 35.0 pg 29.6 MCHC Latest Ref Range: 32.0 - 36.0 g/dL 34.2 RDW-CV Latest Ref Range: <15.0 % 16.2 (H) Platelet Count Latest Ref Range: 140 - 440 K/uL 101 (L) MPV Latest Units: fL 9.1 Absolute Neutrophils Latest Ref Range: 1.80 - 8.50 K/uL 2.30 Absolute Lymphocytes Latest Ref Range: 0.60 - 3.20 K/uL 0.70 Absolute Monocytes Latest Ref Range: 0.00 - 1.00 K/uL 0.30 Absolute Eosinophils Latest Ref Range: 0.00 - 0.40 K/uL 0.10 Absolute Basophils Latest Ref Range: 0.00 - 0.10 K/uL 0.00 % Neutrophils Latest Ref Range: 45.0 - 82.0 % 69.1 % Lymphocytes Latest Ref Range: 20.0 - 45.0 % 20.4 % Monocytes Latest Ref Range: 4.0 - 12.0 % 8.3 % Eosinophils Latest Ref Range: 0.0 - 5.0 % 1.8 % Basophils Latest Ref Range: 0.0 - 1.0 % 0.4 NA Latest Ref Range: 136 - 149 mmol/L 140 K Latest Ref Range: 3.5 - 5.1 mmol/L 3.7 Chloride Latest Ref Range: 98 - 109 mmol/L 107 Carbon dioxide Latest Ref Range: 24 - 31 mmol/L 27 ANION GAP Latest Ref Range: 3 - 16 mmol/L 6 GLUCOSE Latest Ref Range: 70 - 109 mg/dL 129 (H) BUN Latest Ref Range: 7 - 18 mg/dL 15 Creatinine Latest Ref Range: 0.60 - 1.30 mg/dL 1.01 BUN/CREA Unknown 14.9 ALBUMIN Latest Ref Range: 3.2 - 5.0 g/dL 4.0 Albumin/Globulin ratio Latest Ref Range: 0.8 - 2.0 2.1 (H) Total protein Latest Ref Range: 6.0 - 7.8 g/dL 5.9 (L) EGFR IF NOT Latest Ref Range: >=60 mL/min/1.73m2 >60 Calcium Latest Ref Range: 8.3 - 10.5 mg/dL 9.7 ALK PHOS Latest Ref Range: 40 - 110 U/L 48 ALT (SGPT) (REF) Latest Ref Range: 6 - 45 U/L 29 AST (SGOT) (REF) Latest Ref Range: 10 - 42 U/L 24 LDH TOTAL Latest Ref Range: 91 - 180 U/L 135 Bilirubin Total (Calculated) Latest Ref Range: 0.1 - 1.5 mg/dL 0.6 GLOBULIN Latest Ref Range: 2.1 - 3.8 g/dL 1.9 (L) Pharmacovigilance: Results for DANIEL, JOAQUIM Carolyn BOX ( ) as of 11/08/2016 09:09 Ref. [...] Volume 84, Issue 3, pp 242-247 and Faustino Pepe, Horacio Jackson Alessandra Tucci, Jesusita Couch, Js Dubose, Parris Pineda i, and Aman Power "Delayed-Onset Peripheral Blood Cytopenia after Rituximab: Frequency a nd Risk Factor Assessment in a Consecutive Series of 77 Treatments" Leukemia & Lymphoma 2006 , Vol. 47, No. 6, pp 8062-2954. In the first article, an observational study [...] article is another observational study, by Marques et al from [facility] th at reports neutropenia developed in 27.3% [...] Prescriptions No medications on file Modified Medications No medications on file Discontinued Medications CLINDAMYCIN (CLEOCIN) 150 MG CAPSULE Take 150 mg by mouth 4 times daily. Take 2 capsule s by mouth every 6 hours until gone. Procedure note: Day 1, Rituxan every 2 months x 2 years # 9 (56-day cycle) Completed; Released on 01/28/2018; Originally planned for 01/28/2018 Labs Immunoglobulin, Panel, IgG and IgM and IgA STAT, Lab Collect, Future, Expires: 01/29/2019 OrderHistory Lactate Dehydrogenase STAT, ONE TIME, 01/28/18 at 0806, For 1 occurrence OrderHistory Comprehensive Metabolic Panel STAT, ONE TIME, Sun01/28/18 at 0806, For 1 occurrence OrderHistory CBC with Differential STAT, ONE TIME, Sun01/28/18 at 0806, For 1 occurrence OrderHistory PRN Medications ethyl chloride spray (Not Given) Topical, PRN, Pain, Starting Sun01/28/18 at 0805 OrderHistory Nursing Orders OK to proceed with chemotherapy (Not Released) 01/28/18 - INFORMED CONSENT: The nature and character of the proposed treatment with #9 rituximab and the anticipated results of the proposed treatment with #9 rituximab;recognized alternative f orms of treatment, including non-treatment; the risks benefits, and side effects of proposed treatment, alternative treatments and non-treatment were discussed with the patient who con sents to proceed with treatment with #9 rituximab. The treating provider has examined the pa tient and reviewed the diagnostic data, including laboratory data, and deems that it is safe and appropriate to proceed with treatment with #9 rituximab.Electronically signed by: Javi Mallory MD 01/28/2018 9:18. OrderHistory Plans for discharge (Not Released) QFU CBC,CMP,LDH Port DRAW IN 2 months with 4 hour infusion. OrderHistory Pre-Medications acetaminophen (TYLENOL) tablet 650 mg 650 mg, Oral, ONCE, Sun01/28/18 at 0925, For 1 dose Give 30 minutes prior to riTUXimab. OrderHistory famotidine (PEPCID) injection 20 mg 20 mg, Intravenous, ONCE, Sun01/28/18 at 0925, For 1 dose Prior to administration, prepare a 20 mg dose by diluting 2 mL of famotidine 10 mg/mL to 10 mL with normal saline. OrderHistory CHEMOTHERAPY riTUXimab (RITUXAN) 1,000 mg in sodium chloride 0.9% 1,000 mL infusion 1,000 mg (rounded from 997.5 mg = 375 mg/m2 2.66 m2 Treatment plan recorded BSA), Intra venous, ONCE, Sun01/28/18 at 1000, For 1 dose Initial infusion: Start at [...] (5 mL), Intercatheter, PRN, Line Care, Starting 01/28/18 at 0924 OrderHist ory PRN Medications LORazepam (ATIVAN) injection 1 mg (Not Released) 1 mg, Intravenous, EVERY 4 HOURS PRN, Anxiety, Starting when released, Until Discontinued OrderHistory Joaquim Mallory MD Portions of this chart may have been created with [employer] voice recognition software. Occasi onal wrong-word or [...] | | | | | | [place] [facility] | | | | | | [id number] | | | | | | | | +--------+---------+ + + + documented as of this encounter Visit Diagnoses + + | Diagnosis | + + | Diffuse large B-cell lymphoma of intra-abdominal lymph nodes (HCC) Other malignant | | lymphomas of intra-abdominal lymph nodes | + + documented in this encounter
--- OUTSIDE RECORDS SUMMARY | ~2020-01-25 | XMS | Encounter Summary ---
Demographics + + + | Address | [address] | | | [place] [address] | + + + | Home Phone | | + + + | Preferred Language | Unknown | + + + | Marital Status | | + + + | Yarsani Affiliation | 1013 | + + + | Race | Unknown | + + + | Ethnic Group | Unknown | + + + Author + + + | Author | [facility] | | | and [place] | + + + | Organization | [facility] | | | and [place] | + + + | Address | Unknown | + + + | Phone | Unavailable | + + + Support + + + + + | Name | Relationship | Address | Phone | + + + + + | Mara Galindo | ECON | [address] | | | | | [place] | | | | | [address] | | + + + + + Care Team Providers + +------+ + | Care Human Resource Officer Name | Role | Phone | + +------+ + | Earle Chacko MD | PCP | | + +------+ + Encounter Details +--------+ + + + + | Date | Type | Department | Care Team | Description | +--------+ + + + + | 07/17/ | Abstract | [facility] | [facility] | | | 2015 | | MED [facility] MED[facility] | [facility] | | | | | [facility] [address] | | | | | | [address] | | | | | | [place] [address] | | | | | | [phone] | | | +--------+ + + + + Social History + +-------+ +--------+------+ | Tobacco Use | Types | Packs/Day | Years | Date | | | | | Used | | + +-------+ +--------+------+ | Never Assessed | | | | | + +-------+ +--------+------+ + + + | Sex Assigned at [...] + + documented as of this encounter Plan of Treatment +--------+---------+ + + + | Date | Type | Specialty | Care Team | Description | +--------+---------+ + + + | 05/19/ | Office | Cardiology | Karen Bansal, | | | 2019 | Visit | | MD Patricia JOHNSON | | | | | | [place] | | | | | | [address] | | | | | | | | +--------+---------+ + + + documented as of this encounter Visit Diagnoses Not on filedocumented in this encounter"
--- OUTSIDE RECORDS SUMMARY | ~2020-01-25 | XMS | Encounter Summary ---
Demographics + + + | Address | [address] | | | [place] [address] | + + + | Home Phone | | + + + | Preferred Language | Unknown | + + + | Marital Status | | + + + | Bahai Affiliation | 1013 | + + + | Race | Unknown | + + + | Ethnic Group | Unknown | + + + Author + + + | Author | [facility] | | | and [place] | + + + | Organization | [facility] | | | [...] [place] | | | | | [address] | | + + + + + Care Team Providers + +------+ + | Care Sales Expert Home Theater Name | Role | Phone | + +------+ + | Earle Chacko MD | PCP | | + +------+ + Reason for Visit +--------+ + | Reason | Comments | +--------+ + | Other | | +--------+ + Encounter Details +--------+ + + + + | Date | Type | Department | Care Team | Description | +--------+ + + + + | 11/13/ | Telephone | [facility] | Mohamud, | Other | | 2018 | | MED [facility] MED[facility] | Gerber Benson MD [address] | | | | | [facility] CL[facility] [address] | [address] [facility] | | | | | [address] | [place] [address] | | | | | [place] [address] | [phone] | | | | | [phone] | | | +--------+ + + + [...] [place] | | | | | | [address] | | | | | | | | +--------+---------+ + + + documented as of this encounter Visit Diagnoses Not on filedocumented in this encounter"
--- OUTSIDE RECORDS SUMMARY | ~2020-01-25 | XMS | Encounter Summary ---
Demographics + + + | Address | [address] | | | [place] [address] | + + + | Home Phone | | + + + | Preferred Language | Unknown | + + + | Marital Status | | + + + | Orthodox Affiliation | 1013 | + + + | Race | Unknown | + + + | Ethnic Group | Unknown | + + + Author + + + | Author | [facility] | | | and [place] | + + + | Organization | [facility] | | [...] [place] | | | | | [address] | | + + + + + Care Team Providers + +------+ + | Care [place] Utility Worker Name | Role | Phone | + +------+ + | Earle Chacko MD | PCP | | + +------+ + Reason for Visit + + + | Reason | Comments | + + + | Therapy Daily | | | Treatment | | + + + Encounter Details +--------+---------+ + + + | Date | Type | Department | Care Team | Description | +--------+---------+ + + + | 09/05/ | Office | [facility] | Mohamud, | Lymphedema of left | | 2016 | Visit | MED CNT ONCOLOGY | Gerber Benson MD [address] | lower extremity | | | | THERAPY [address] | [address] [place] | (Primary Dx) | | | | [place], | [place] [address] | | | | | [place] [address] | [phone] | | | | | [phone] | | | | | | | Olivia Portillo, | | | | | | OT | | +--------+---------+ + + + Social History + +-------+ [...] documented as of this encounter Progress Notes Olivia Portillo OT - 09/05/2016 11:16 AM PST [facility] OP [address] [place] [address] Occupational Therapy Daily Treatment Note Date: 09/05/2016 Patient Information Patient Name: Gerber Galindo Date of : 1950 Age: 66 y.o. History Encounter Diagnoses Code Name Primary? I89.0 Lymphedema of left lower extremity Yes Date of Onset: 2016 Referring Provider: Gerber Mallory MD Rehab Precautions Office Visit from 08/24/2016 in [facility] OP Rehab Precautions Precautions None Rehab Learning Style Office Visit from 08/24/2016 in [facility] OP Learning Style Patient's Optimum Learning Style performance of task, reading Today's Treatment Start Time: 1000 Stop time: 1040 Duration: 40 minutes Timed Treatment Codes: 40 minutes # of OT Visits: 3 Subjective: No new c/o; receiving thigh high compression stockings and brought with him to day Pain Assessment: Pain Rating During Assessment: 2 Location: L lower claire; tenderness with palpation Percent of Time Pain is Experienced: 26-50% Objective Edema in LLE is remaining stable. Skin mobility has improved in calf and upper claire. Decr eased edema in L upper thigh - no dimpling/pocketing under L buttock. Patient and spouse re port continuing exs of MLM and spouse will still occasionally apply compression wrapping. I nstructed patient and spouse in donning thigh high compression stocking. Patient demonstrat es ability to perform independently after initial instruction. Assessment Fit of compression stocking is good and comfortable. Patient and spouse demo good understa nding of use and wearing. Plan Plan to follow up in approx 2-3 weeks after period of patient using compression stocking. Will assess edema stability. Anticipate may be ready for d/c at that time. Electronically signed by: Olivia Portillo OT, 09/05/2016 11:19 Patient Name: Gerber Galindo/: 1950/ documented in this encounter Plan of Treatment +--------+---------+ + + + | Date | Type | Specialty | Care Team | Description | +--------+---------+ + + + | 05/19/ | Office | Cardiology | Karen Bansal, | | | 2019 | Visit | | [address] | | | | | | [place] | | | | | | [address] | | | | | | | | +--------+---------+ + + + documented as of this encounter Visit Diagnoses + + | Diagnosis | + + | Lymphedema of left lower extremity - Primary | + + documented in this encounter"
--- OUTSIDE RECORDS SUMMARY | ~2020-01-25 | XMS | Encounter Summary ---
Demographics + + + | Address | [address] | | | [place] [address] | + + + | Home Phone | | + + + | Preferred Language | Unknown | + + + | Marital Status | | + + + | Presybeterian Affiliation | 1013 | + + + | Race | Unknown | + + + | Ethnic Group | Unknown | + + + Author + + + | Author | [facility] | | | and [place] | + + + | Organization | [facility] | | [...] [address] | | | | | [place] | | | | | [address] | | + + + + + Care Team Providers + +------+ + | Care River Captain Name | Role | Phone | + [...] large b-cell | Gerber Benson, | [address] | | | | | lymphoma, | MD [address] | [place], | | | | | intra-abdomi | [address] | [place] [address] | | | | | nal lymph | [place], | Phone: | | | | | nodes (HCC) | [place] [address] | [phone] | | | | | Procedures | Phone: | Fax: | | | | | AL | [phone] | [phone] | | | | | RITUXIMAB | Fax: | | | | | | INJECTION, | [phone] | | | | | | 100 MG AL | | | | | | | MEPERIDINE | | | | | | | HYDROCHL | | | | | | | /100 MG AL | | | | | | | IV INFUSION, | | | | | | | HYDRATION, | | | | | | | 31-60 MIN | | | | | | | AL IV | | | | | | | INFUSION, | | | | | | | HYDRATION, | | | | | | | EA ADD HOUR | | | | | | | AL | | | | | | | ONDANSETRON | | | | | | | HCL | | | | | | | INJECTION, 1 | | | | | | | MG AL | | | | | | | DEXAMETHASON | | | | | | | E SODIUM | | | | | | | PHOS, 1 MG | | | | | | | AL | | | | | | | FOSAPREPITAN | | | | | | | T INJECTION, | | | | | | | 1 MG AL | | | | | | | PREDNISONE | | | | | | | IR OR DR | | | | | | | ORAL 1MG AL | | | | | | | | | | | | | | CYCLOPHOSPHA | | | | | | | MIDE 100 MG | | | | | | | INJ AL | | | | | | | DOXORUBICIN | | | | | | | HCL | | | | | | | INJECTION, | | | | | | | 10 MG AL | | | | | | | VINCRISTINE | | | | | | | SULFATE 1 MG | | | | | | | INJ AL | | | | | | | DIPHENHYDRAM | | | | | | | INE HCL | | | | | | | INJECTIO, 50 | | | | | | | MG AL | | | | | | | METHYLPREDNI | | | | | | | SOLONE | | | | | | | INJECTION, | | | | | | | 125 MG AL | | | | | | | DEXAMETHASON | | | | | | | E SODIUM | | | | | | | PHOS, 1 MG | | | | | | | AL | | | | | | | INJECTION, | | | | | | | PEGFILGRASTI | | | | | | | M 6MG AL | | | | | | | NORMAL | | | | | | | SALINE | | | | | | | SOLUTION | | | | | | | INFUS, 500 | | | | | | | ML AL | | | | | | | NORMAL | | | | | | | SALINE | | | | | | | SOLUTION | | | | | | | INFUS, 250 | | | | | | | ML AL | | | | | | | STERILE | | | | | | | WATER/SALINE | | | | | | | , 10 ML AL | | | | | | | CHEMOTHER, | | | | | | | IV PUSH,EA | | | | | | | ADD DRUG AL | | | | | | | CHEMOTHER, | | | | | | | IV INFUSION, | | | | | | | 1 HR AL | | | | | | | CHEMOTHER, | | | | | | | IV INFUSION, | | | | | | | EA HR AL | | | | | | | CHEMOTHER,NO | | | | | | | N-HORMONE | | | | | | | ANTI-NEOPL, | | | | | | | SUB-Q/IM AL | | | | | | | [...] | +--------+ + + + + | 04/23/ | [facility] | [facility] | Miguel Zuniga | 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 | | | | INFUSION [address] | [address] [place] | intra-abdominal | | | | [place], | [place], [place] [address] | lymph nodes (HCC) | | | | [place] [address] | [phone] | | | | | [phone] | | | +--------+ + + + [...] [place] | | | | | | [address] | | | | | | | | +--------+---------+ + + + documented as of this encounter Procedures + +--------+ + + + | Procedure Name | Priori | Date/Time | Associated Diagnosis | Comments | | | ty | | | | + +--------+ + + + | CBC WITH | STAT | 04/23/2017 | Diffuse large | Results for this | | DIFFERENTIAL | | 8:51 AM | B-cell lymphoma of | procedure are in the | | | | PDT | intra-abdominal | results section. | | | | | lymph nodes (HCC) | | + +--------+ + + + | LACTATE | STAT | 04/23/2017 | Diffuse large | Results for this | | DEHYDROGENASE | | 8:51 AM | B-cell lymphoma of | procedure are in the | | | | PDT | intra-abdominal | results section. | | | | | lymph nodes (HCC) | | + +--------+ + + + | COMPREHENSIVE | STAT | 04/23/2017 | Diffuse large | Results for this | | METABOLIC PANEL | | 8:51 AM | B-cell lymphoma of | procedure are in the | | | | PDT | intra-abdominal | results section. | | | | | lymph nodes (HCC) | | + +--------+ + + + documented in this encounter Results CBC with Differential (04/23/2017 8:51 AM PDT) + + + + + + | Component | Value | Ref Range | Performed | Pathologist | | | | | At | Signature | + + + + + + | WBC | 2.8 (L) | 4.0 - 11.0 K/uL | [facility] | | | | | [facility] | | | [facility] | | | | | | [facility]ATORY | | + + + + + + | RBC | 4.16 (L) | 4.30 - 5.70 | [facility] | | | | | M/uL | [facility] | | [facility] | [facility] | | | | | | [facility] - | | | | | | LAB[facility]ATORY | | + + + + + + | Hemoglobin | 12.5 (L) | 13.5 - 18.0 | [facility] | | | | | g/dL | [facility] | [facility] | [facility] | | | | | [facility] - | | | | | | LAB[facility]ATORY | | + + + + + + | Hematocrit | 35.5 (L) | 40.0 - 51.0 % | [facility] | | | | | | [facility] | [facility] | | | | | [facility] - | | | | | | LAB[facility]ATORY | | + + + + + + | MCV | 85.4 | 83.0 - 101.0 fL | [facility] | | | | | | [facility] | | | | | [facility] - | | | | | | LAB[facility]ATORY | | + + + + + + | MCH | 30.0 | 28.0 - 35.0 pg | [facility] | | | | | | [facility] | | [facility] | [facility] | | | | | | [facility] - | | | | | | LAB[facility]ATORY | | + + + + + + | MCHC | 35.1 | 32.0 - 36.0 | [facility] | [...] + + + + | Platelet | 104 (L) | 140 - 440 K/uL | [...] + + + + | % | 60.8 | 45.0 - 82.0 % | [facility] | | | Neutrophils | | | [facility] | | | [facility] | [facility] | | | | | | [facility] - | | | | | | LABORATORY | | + + + + + + | % | 26.6 | 20.0 - 45.0 % | [facility] | | | Lymphocytes | | | [facility] | | | | | | [facility] | | | | | | [facility] - | | | | | | LABORATORY | | + + + + + + | % Monocytes | 8.4 | 4.0 - 12.0 % | [facility] | | | | | | [facility] | | [facility] | [facility] | | | | | | [facility] - | | | | | | LABORATORY | | + + + + + + | % | 3.5 | 0.0 - 5.0 % | [facility] | | | Eosinophils | | | [facility] | | | | | | [facility] | | | | | | [facility] - | | | | | | LABORATORY | | + + + + + + | % Basophils | 0.7 | 0.0 - 1.0 % | [facility] | | | | | | [facility] | | [facility] | [facility] | | | | | | [facility] - | | | | | | LABORATORY | | + + + + + + | Absolute | 1.70 (L) | 1.80 - 8.50 | [facility] [...] + | [facility] | [address] | [place] | [phone] | | [facility] | | [address] | | | - LABORATORY | | | | + + + + + Comprehensive Metabolic Panel (04/23/2017 8:51 AM PDT) + + + + + + | Component | Value | Ref Range | Performed | Pathologist | | | | | At | Signature | + + + + + + | Na | 137 | 136 - 149 | [facility] | | | | | mmol/L | [facility] | | | | | | [facility] | | | | | | [facility] - | | | | | | LABORATORY | | + + + + + + | K | 3.7 | 3.5 - 5.1 | [facility] | | | | | mmol/L | [facility] | | | | | | [facility] | | | | | | [facility] - | | | | | | LABORATORY | | + + + + + + | Cl | 108 | 98 - 109 mmol/L | [facility] | | | | | | [facility] | | | [facility] | [facility] | | | | | | [facility] - | | | | | | LABORATORY | | + + + + + + | CO2 | 26 | 24 - 31 mmol/L | [facility] [...] + + + + | Glucose | 127 (H) | 70 - 109 mg/dL | [facility] | | | | | | [facility] | | [facility] | [facility] | | | | | | [facility] - | | | | | | LABORATORY | | + + + + + + | BUN | 16 | 7 - 18 mg/dL | [facility] | | | | | | [facility] | | | | | | [facility] | | | | | | [facility] - | | | | | | LABORATORY | | + + + + + + | Creatinine | 0.92 | 0.60 - 1.30 | [facility] | [...] | | | FILTRATION | mL/min/1.73m2 | [facility] | | | [place] | RATE,ESTIMATED | | MEDICAL | | | | mL/min/1.85q8Pbrz than | | CENTER - | | [...] | 9.2 | 8.3 - 10.5 | [facility] | | | | | mg/dL | [facility] | | | | | [facility] | | | | | | [facility] - | | | | | | LABORATORY | | + + + + + + | Albumin | 3.7 | 3.2 - 5.0 g/dL | [facility] | | | | | | [facility] | | | | | | MEDICAL | | | | | | CENTER - | | | | | | LABORATORY | | + + + + + + | Bilirubin | 0.7 | 0.1 - 1.5 mg/dL | [facility] | | | Total | | | [facility] | | | | | | [facility] | | | | | | [facility] - | | | | | | LABORATORY | | + + + + + + | Total | 5.5 (L) | 6.0 - 7.8 g/dL | [facility] | | | Protein | | | [facility] | | | | | | [facility] | | | | | | [facility] - | | | | | | LABORATORY | | + + + + + + | AST | 20 | 10 - 42 U/L | [facility] | | | | | | [facility] | | | [facility] | [facility] | | | | | | [facility] - | | | | | | LABORATORY | | + + + + + + | ALT | 19 | 6 - 45 U/L | [facility] | | | | | | [facility] | | | [facility] | [facility] | | | | | | [facility] - | | | | | | LABORATORY | | + + + + + + | Alkaline | 48 | 40 - 110 U/L | [facility] | | | Phosphatase | | | [facility] | | | | | | [facility] | | | | | | [facility] - | | | | | | LABORATORY | | + + + + + + | Globulin | 1.8 (L) | 2.1 - 3.8 g/dL | [facility] | | | | | | [facility] | | | [facility] | | [facility] | | | | | | [facility] - | | | | | | LABORATORY | | + + + + + + | Albumin/Pooja | 2.1 (H) | 0.8 - 2.0 | [facility] | | | bulin Ratio | | | [facility] | | | [facility] | | [facility] | | | | | | [facility] - | | | | | | LABORATORY | | + + + + + + | BUN/Creatin | 17.4 | | [facility] | | | ine Ratio | | | [facility] | | [facility] | [...] [facility] | [address] | [place] | [phone] | | [facility] | | [address] | | | - LABORATORY | | | | + + + + + Lactate Dehydrogenase (04/23/2017 8:51 AM PDT) + +-------+ + + + | Component | Value | Ref Range | Performed | Pathologist | | | | | At | Signature | + +-------+ + + + | LDH TOTAL | 143 | 91 - 180 U/L | [facility] | | | | | [...] + + | [facility] | [address] | [place] | [phone] | | [facility] | | [address] | | | - LABORATORY | | [...] | acetaminophen (TYLENOL) tablet | Given | 04/23/20 | 650 mg | | | | 650 mg 650 mg, Oral, ONCE, Sun | | 17 9:52 | | | | | 04/23/17 at 1015, For 1 dose, Give | | AM PDT | | | | | 30 minutes prior to riTUXimab., | | | | | | + +--------+ +--------+------+------+ +---+---+ | | | +---+---+ + +-------+ +-------+---+---+ | famotidine (PEPCID) injection | Given | 04/23/20 | 20 mg | | | | 20 mg 20 mg, Intravenous, ONCE, | | 17 9:53 | | | | | 04/23/17 at 1015, For 1 dose, | | AM PDT | | | | | Prior to administration, prepare | | | | | | | a 20 mg dose by diluting 2 mL of | | | | | | | famotidine 10 mg/mL to 10 mL with | | | | | | | normal saline., | | | | | | + +-------+ +-------+---+---+ +---+---+ | | | +---+---+ + +-------+ +-------+---+---+ | heparin 100 units/mL flush | Given | 04/23/20 | 500 | | | | injection 500 Units 500 Units (5 | | 17 1:41 | Units | | | | mL), Intracatheter, PRN, Line | | PM PDT | | | | | Care, Starting 04/23/17 at | | | | | | | 0948 | | | | | | + +-------+ +-------+---+---+ +---+---+ | | | +---+---+ + +---------+ + +---+---+ | riTUXimab (RITUXAN) 1,000 mg in | New Bag | 04/23/20 | 1,000 mg | | | | sodium chloride 0.9% 1,000 mL | | 17 10:20 | | | | | infusion 1,000 mg (rounded from | | AM PDT | | | | | 997.5 mg = 375 mg/m2 | | | | | | | 2.66 m2 Treatment plan recorded | | | | | | | BSA), Intravenous, ONCE, Mon | | | | | | | 04/23/17 at 1045, For 1 dose, | | | | [...]
--- OUTSIDE RECORDS SUMMARY | ~2020-01-25 | XMS | Encounter Summary ---
Demographics + + + | Address | [address] | | | [place] [address] | + + + | Home Phone | | + + + | Preferred Language | Unknown | + + + | Marital Status | | + + + | Evangelical Affiliation | 1013 | + + + | Race | Unknown | + + + | Ethnic Group | Unknown | + + + Author + + + | Author | [facility] | | | and [place] | + + + | Organization | [facility] | | | [...] [place] | | | | | [address] | | + + + + + Care Team Providers + +------+ + | Care Blankbook Stitching Machine Operator Name | Role | Phone | + +------+ + | Earle Chacko MD | PCP | | + +------+ + Encounter Details +--------+ + + + + | Date | Type | Department | Care Team | Description | +--------+ + + + + | 04/18/ | Hospital | [facility] | Miguel Zuniga | 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 [...] [place] | | | | | | [address] | | | | | | | [...] 500 Units 500 Units ( | | 17 11:08 | Units | | | | mL), Intracatheter, PRN, Line | | AM PDT | | | | | Care, Starting 04/18/17 at | | | | | | | 1103 | | | | | | + +--------+ +-------+------+------+ +---+---+ | | | +---+---+ documented in this encounter"
--- OUTSIDE RECORDS SUMMARY | ~2020-01-25 | XMS | Encounter Summary ---
Demographics + + + | Address | [address] | | | [place] [address] | + + + | Home Phone | | + + + | Preferred Language | Unknown | + + + | Marital Status | | + + + | Samaritan Affiliation | 1013 | + + + | Race | Unknown | + + + | Ethnic Group | Unknown | + + + Author + + + | Author | [facility] | | | and [place] | + + + | Organization | [facility] | | | [...] [place] | | | | | [address] | | + + + + + Care Team Providers + +------+ + | Care Snow Shoveler Name | Role | Phone | + [...] large b-cell | Gerber Benson, | [address] | | | | | lymphoma, | MD [address] | [place], | | | | | intra-abdomi | [address] | [place] [address] | | | | | nal lymph | [place], | Phone: | | | | | nodes (HCC) | [place] [address] | [phone] | | | | | Procedures | Phone: | Fax: | | | | | MT | [phone] | [phone] | | | | | INJECTION, | Fax: | | | | | | FAMOTIDINE, | [phone] | | | | | | 20 MG MT | | | | | | | RITUXIMAB | | | | | | | INJECTION, | | | | | | | 100 MG MT | | | | | | | LORAZEPAM | | | | | | | INJECTION, 2 | | | | | | | MG MT | | | | | | | MEPERIDINE | | | | | | | HYDROCHL | | | | | | | /100 MG MT | | | | | | | DIPHENHYDRAM | | | | | | | INE HCL | | | | | | | INJECTIO, 50 | | | | | | | MG MT | | | | | | | METHYLPREDNI | | | | | | | SOLONE | | | | | | | INJECTION, | | | | | | | 125 MG MT | | | | | | | DEXAMETHASON | | | | | | | E SODIUM | | | | | | | PHOS, 1 MG | | | | | | | MT NORMAL | | | | | | | SALINE | | | | | | | SOLUTION | | | | | | | INFUS, 500 | | | | | | | ML MT | | | | | | | NORMAL | | | | | | | SALINE | | | | | | | SOLUTION | | | | | | | INFUS, 250 | | | | | | | ML MT | | | | | | | STERILE | | | | | | | WATER/SALINE | | | | | | | , 10 ML MT | | | | | | | CHEMOTHER, | | | | | | | IV PUSH,EA | | | | | | | ADD DRUG MT | | | | | | | CHEMOTHER, | | | | | | | IV INFUSION, | | | | | | | 1 HR MT | | | | | | | CHEMOTHER, | | | | | | | IV INFUSION, | | | | | | | EA HR MT | | | | | | | CHEMOTHER,NO | | | | | | | N-HORMONE | | | | | | | ANTI-NEOPL, | | | | | | | SUB-Q/IM MT | | | | | | | [...] + + | 07/15/ | Hospital | [facility] | Mohamud, | 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 [address] | lymphoma of | | | | INFUSION [address] [place] | intra-abdominal | | | | [place], | [place] [address] | lymph nodes (HCC); | | | | [place] [address] | [phone] | Lymphedema of left | | | | [phone] | | lower extremity | +--------+ + [...] + + + | Blood Pressure | 162/77 | 07/15/2018 2:37 PM | | | | | PDT | | + + + + + | Pulse | 57 | 07/15/2018 2:37 PM | | | | | PDT | | + + + + + | Temperature | 36.6 C (97.8 F) | 07/15/2018 2:37 PM | | | | | PDT | | + + + + + | Respiratory Rate | 16 | 07/15/2018 2:37 PM | | | | | PDT | | + + + + + | Oxygen Saturation | 97% | 07/15/2018 2:37 PM | | | | | PDT | | + + + + + | Inhaled Oxygen | - | - | | | Concentration | | | | + + + + + | Weight | - | - | | + + + + + | Height | - | - | | + + + + + | Body Mass Index | - | - | | + [...] mg | | | | 18 | 0 | | capsule | | | | | | + + + +---------+ + + | doxycycline | | | 0 | 05/29/20 | | | (VIBRAMYCIN) 100 mg | | | | 18 | 0 | | tablet | | | | | | + + + +---------+ + + | KRILL OIL PO | Take by mouth. | | 0 | | | | | | | | | 0 | + + + +---------+ + + | lisinopril | Take 1 tablet by | | 0 | 02/21/20 | | | (PRINIVIL, ZESTRIL) | mouth Daily. | | | 18 | 0 | | 10 mg tablet | | [...] mg | nightly. | | | | 0 | | tablet | | | | | | + + + +---------+ + + | VITAMIN E COMPLEX | Take by mouth. | | 0 | | | | PO | | | | | 0 | + + + +---------+ + + documented as of this encounter Progress Notes Chari Garcia RN - 07/15/2018 2:40 PM PDTPatient finished with treatment today, last Rituxin. Faxed progress note and scheduling orders to [place], [place] and spoke with LUZ Dodd at [facility]. [facility]S provided with lab values today. They will call if they have not heard from [facility] in the next few days. Discharged to home in stable condition with . Electronically s igned by Chari Garcia RN at 07/15/2018 3:02 PM PDTdocumented in this encounter Plan of Treatment +--------+---------+ + + + | Date | Type | Specialty | Care Team | Description | +--------+---------+ + + + | 05/19/ | Office | Cardiology | Karen Bansal, | | | 2020 | Visit | | MD Patricia [address] | | | | | | [place], [place] | | | | | | [address] | | | | | | | | +--------+---------+ + + + documented as of this encounter Procedures + +--------+ + + + | Procedure Name | Priori | Date/Time | Associated Diagnosis | Comments | | | ty | | | | + +--------+ + + + | CBC WITH | STAT | 07/15/2018 | Diffuse large | Results for this | | DIFFERENTIAL | | 9:16 AM | B-cell lymphoma of | procedure are in the | | | | PDT | intra-abdominal | results section. | | | | | lymph nodes (HCC) | | + +--------+ + + + | IMMUNOGLOBULIN, | STAT | 07/15/2018 | Diffuse large | Results for this | | PANEL, IGG AND IGM | | 9:16 AM | B-cell lymphoma of | procedure are in the | | AND IGA | | PDT | intra-abdominal | results section. | | | | | lymph nodes (HCC) | | + +--------+ + + + | LACTATE | STAT | 07/15/2018 | Diffuse large | Results for this | | DEHYDROGENASE | | 9:16 AM | B-cell lymphoma of | procedure are in the | | | | PDT | intra-abdominal | results section. | | | | | lymph nodes (HCC) | | + +--------+ + + + | COMPREHENSIVE | STAT | 07/15/2018 | Diffuse large | Results for this | | METABOLIC PANEL | | 9:16 AM | B-cell lymphoma of | procedure are in the | | | | PDT | intra-abdominal | results section. | | | | | lymph nodes (HCC) | | + +--------+ + + + documented in this encounter Results CBC with Differential (07/15/2018 9:16 AM PDT) + + + + + [...] + + + + | RBC | 4.47 | 4.30 - 5.70 | [facility] | | | | M/uL | [facility] | [facility] | [facility] | | | | [facility] - | | | | | | LABORATORY | | + + + + + + | Hemoglobin | 13.0 (L) | 13.5 - 18.0 | [facility] | | | | | g/dL | [facility] | | | | | | [facility] | | | | | | [facility] - | | | | | | LABORATORY | | + + + + + + | Hematocrit | 38.9 (L) | 40.0 - 51.0 % | [...] + + + + | MCH | 29.1 | 28.0 - 35.0 pg | [facility] | | | | | | [facility] | | | | | | [facility] | | | | | | [facility] - | | | | | | LABORATORY | | + + + + + + | MCHC | 33.4 | 32.0 - 36.0 | [facility] | [...] + + + + + + | RDW-SD | 50.3 (H) | 35.1 - 46.3 fL | [facility] | | | | | | [facility] | | | | | | [facility] | | | | | | [facility] - | | | | | | LABORATORY | | + + + + + + | Platelet | 112 (L) | 140 - 440 K/uL | [facility] | | | Count | | | [facility] | | | | | | [facility] | | | | | | [facility] - | | | | | | LABORATORY | | + + + + + + | MPV | 11.1 | 6.5 - 12.4 fL | [facility] | | | | | | [facility] | | | | | | [facility] | | | | | | [facility] - | | | | | | LABORATORY | | + + + + + + | Immature | 5.6Comment: Low PLT + | 0.9 - 11.2 % | [facility] | | | Platelet | Low IPF are consistent | | [facility] | | | Fraction | with a production | | MEDICAL | | | | disorder. Low PLT + High | | CENTER - | | | | IPF are consistent with | | LABORATORY | | | | destruction mechanism. | | | | + + + + + + | % | 63.1 | 45.0 - 82.0 % | [facility] | | | Neutrophils | | | [facility] | | | | | | [facility] | | | | | | CENTER - | | | | | | LABORATORY | | + + + + + + | % | 24.9 | 20.0 - 45.0 % | [facility] [...] | | | | | | [facility] | | | | | | [facility] - | | | | | | LABORATORY | | + + + + + + | % Immature | 1.0 (H)Comment: | 0.0 - 0.4 % | [facility] | | | Granulocyte | Preliminary studIes have | | [facility] | | | s | indicated the IG% | | MEDICAL | | | | and/or IG# show promise | | CENTER - | | | | as an early screen for | | LABORATORY | | | | infection. | | | | + + + + + + | Absolute | 1.95 | 1.80 - 8.50 | [facility] | | | Neutrophils | | K/uL | [facility] | | | | | | [facility] | | | | | | CENTER - | | | | | | LABORATORY | | + + + + + + | Absolute | 0.77 | 0.60 - 3.20 | [facility] | | | Lymphocytes | | K/uL | [facility] | | | | | | [facility] | | | | | | CENTER - | | | | | | LABORATORY | | + + + + + + | Absolute | 0.21 | 0.00 - 1.00 | [facility] | | | Monocytes | | K/uL | [facility] | | | | | | [facility] | | | | | | CENTER - | | | | | | LABORATORY | | + + + + + + | Absolute | 0.11 | 0.00 - 0.40 | [facility] | | | Eosinophils | | K/uL | [facility] | | | | | | [facility] | | | | | | CENTER - | | | | | | LABORATORY | | + + + + + + | Absolute | 0.02 | 0.00 - 0.10 | [facility] | | | Basophils | | K/uL | [facility] | | | | | | [facility] | | | | | | CENTER - | | | | | | LABORATORY | | + + + + + + | Absolute | 0.03 | 0.00 - 0.03 | [facility] | | | Immature | | K/uL | [facility] | | | Granulocyte | | | MEDICAL | | | s | | | CENTER - | | | | | | LABORATORY | | + + + + + + | % nRBC | 0 | 0 - 2 per 100 | [facility] | | | | | WBC's | [facility] | | | | | | [facility] | | | | | | CENTER - | | | | | | LABORATORY | | + + + + + + | Absolute | 0.00 | 0.00 - 0.01 | [facility] | | | nRBC | | K/uL | [facility] | [...] [address] | [place] | [phone] | | [facility] | | [address] | | | - LABORATORY | | | | + + + + + Comprehensive Metabolic Panel (07/15/2018 9:16 AM PDT) + + + + + [...] + + + + | K | 3.9 | 3.5 - 5.1 | [facility] | [...] + + + + | Glucose | 110 (H) | 70 - 109 mg/dL | [facility] | | | | | | [facility] | | | | | | [facility] | | | | | | CENTER - | | | | | | LABORATORY | | + + + + + + | BUN | 15 | 7 - 18 mg/dL | [facility] | | | | | | [facility] | | | | | | [facility] | | | | | | CENTER - | | | | | | LABORATORY | | + + + + + + | Creatinine | 0.95 | 0.60 - 1.30 | [facility] | | | | | mg/dL | [facility] | | | | | | MEDICAL | | | | | | CENTER - | | | | | | LABORATORY | | + + + + + + | eGFR if not | >60Comment: GLOMERULAR | >=60 | [facility] | | | | FILTRATION | mL/min/1.73m2 | [facility] | | | [place] | RATE,ESTIMATED | | MEDICAL | | | | mL/min/1.24t9Amyk than | | CENTER - | | [...] + + + + | Calcium | 9.6 | 8.3 - 10.5 | [facility] | | | | | mg/dL | [facility] | | | | | | MEDICAL [...] + + + + | Total | 5.9 (L) | 6.0 - 7.8 g/dL | [facility] | | | Protein | | | [facility] | | | | | | [facility]ICAL | | | | | | CENTER - | | | | | | LABORATORY | | + + + + + + | AST | 27Comment: This is an | 10 - 42 [...] + + + + | ALT | 26Comment: This is an | 6 - 45 [...] + + + + | Globulin | 2.0 (L) | 2.1 - 3.8 g/dL | [facility] | | | | | | [facility] | | [facility] | | [facility] | | | | | | [facility] - | | | | | | LABORATORY | | + + + + + + | Albumin/Pooja | 2.0 | 0.8 - 2.0 | [facility] | | | bulin Ratio | | | [facility] | | | | | | MEDICAL | | | | | | CENTER - | | | | | | LABORATORY | | + + + + + + | BUN/Creatin | 15.8 | | [facility] | | | ine [...] [address] | [place] | [phone] | | [facility] | | [address] | | | - LABORATORY | | | | + + + + + Lactate Dehydrogenase (07/15/2018 9:16 AM PDT) + +-------+ + + + | Component | Value | Ref Range | Performed | Pathologist | | | | | At | Signature | + +-------+ + + + | LDH TOTAL | 149 | 91 - 180 U/L | [facility] | | | | | | [facility] [...] [address] | [place] | [phone] | | [facility] | | [address] | | | - LABORATORY | | | | + + + + + Immunoglobulin, Panel, IgG and IgM and IgA (07/15/2018 9:16 AM PDT) + + + + + + | Component | Value | Ref Range | Performed | Pathologist | | | | | At | Signature | + + + + + + | Immunoglobu | 729 | 700 - 1600 | [facility] | | | vasu IgG | | mg/dL | LAB [facility] | | | | | | [facility] | | + + + + + + | Immunoglobu | 76 | 61 - 437 mg/dL | [facility] | | | vasu IgA | | | [facility] | | | | | | - [place] | | + + + + + + | Immunoglobu | 20Comment: Result | 20 - 172 mg/dL | [facility] | | | vasu IgM | confirmed on | | [facility] | | | | concentration. | | - [facility] | | + + + + + + + + | Specimen | + + | Blood | + + + + + | Narrative | Performed At | + + + | Performed at: - [place] [address], | [facility] | | [place], [place] [id number] Travel Director: Toney Arce MD, Phone: | [facility] | | [phone] | | + + + + + + + + | Performing | Address | City/State/Zipcode | Phone Number | | Organization | | | | + + + + + | [facility] | [address] | [place], [place] | [phone] | | [facility] | [place] | [address] | | + + + + + [...] | acetaminophen (TYLENOL) tablet | Given | 07/15/20 | 650 mg | | | | 650 mg 650 mg, Oral, ONCE, Mon | | 18 10:46 | | | | | 07/15/18 at 1022, For 1 dose, | | AM PDT | | | | | Give 30 minutes prior to | | | | | | | riTUXimab., | | | | | | + +--------+ +--------+------+------+ +---+---+ | | | +---+---+ + +-------+ +-------+---+---+ | famotidine (PEPCID) injection | Given | 07/15/20 | 20 mg | | | | 20 mg 20 mg, Intravenous, ONCE, | | 18 10:47 | | | | | 07/15/18 at 1022, For 1 dose, | | AM PDT [...] heparin 100 units/mL flush | Given | 07/15/20 | 500 | | | | injection 500 Units 500 Units (5 | | 18 2:38 | Units | | | | mL), Intracatheter, PRN, Line | | PM PDT | | | | | Care, Starting 07/15/18 at | | | | | | | 1022 | | | | | | + +-------+ +-------+---+---+ +---+---+ | | | +---+---+ + +---------+ + +---+---+ | riTUXimab (RITUXAN) 1,000 mg in | New Bag | 07/15/20 | 1,000 mg | | | | sodium chloride 0.9% 1,000 mL | | 18 11:15 | | | | | infusion 1,000 mg (rounded from | | AM PDT | | | | | 997.5 mg = 375 mg/m2 | | | | | | | 2.66 m2 Treatment plan recorded | | | | | | | BSA), Intravenous, ONCE, Mon | | | | | | | 07/15/18 at 1100, For 1 dose, | | [...]
--- OUTSIDE RECORDS SUMMARY | ~2020-01-25 | XMS | Encounter Summary ---
Demographics + + + | Address | [address] | | | [place] [address] | + + + | Home Phone | | + + + | Preferred Language | Unknown | + + + | Marital Status | | + + + | Christian Affiliation | 1013 | + + + [...] [place] | | | | | [address] | | + + + + + Care Team Providers + +------+ + | Care Thermostat Maker Name | Role | Phone | + +------+ + | Kelsey Quintanilla MD | PCP | | + +------+ + Reason for Visit Evaluate & Treat (Routine) + + + + + + + | Status | Reason | Specialty | Diagnoses / | Referred By | Referred To | | | | | Procedures | Contact | Contact | + + + + + + + | Authorized | Specialty | Audiology | Diagnoses | Rolf, | Maxwell | | | Services | | Vertigo | MD Karen | Audiology | | | Required | | | [address] | | | | | | [address] | [address] | | | | | | [place] | [place], [place] | | | | | | [place], [place] | [address] | | | | | | [address] | Phone: | | | | | | Phone: | [phone] | | | | | | [phone] | Fax: | | | | | | Fax: | [phone] | | | | | | [phone] | | + + + + + + + Encounter Details +--------+---------+ + + + | Date | Type | Department | Care Team | Description | +--------+---------+ + + + | 10/14/ | Office | [facility] | Karen Bansal, | BPPV (benign | | 2020 | Visit | AUDIOLOGY [address] | [address] | par[address]ysmal | | | | [address] | [place], [place] | positional vertigo), | | | | [place], [place] | [address] | unspecified | | | | [address] | | laterality (Primary | | | | [phone] | Michael Corbin, AUD | Dx); Sensorineural | | | | | [address] [place] | hearing loss (SNHL) | | | | | [address] [place], [place] | of both ears; | | | | | [address] | Tinnitus, bilateral | | | | | | | +--------+---------+ + + + Social [...] + | Yes | | | Occasionally | + + +---------+ + + + [...] documented as of this encounter Progress Notes Michael Corbin, AUD - 10/14/2019 10:00 AM Rupertomuna 'Rios' Josie was seen for vertigo. He reported short duration vertigo associated with quick head movements. Looking down and r olling over in bed have triggered the vertigo. This has been an issue for a few weeks. He also reported short duration tinnitus bilaterally. Gerber has noticed that hearing in his r ight ear has been worse for several years. 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 Rios has noticed difficulty hearing people in groups settings, hearing the television, and hearing on the phone in his right ear. Otoscopy showed clear ear canals and intact eardrums. Immittance measures revealed normal middle ear compliance and pressure in each ear with a present acoustic reflex in the right e ar and no acoustic reflex in the left ear at 1000 Hertz. Air and bone conduction threshold testing revealed normal hearing sensitivity sloping to moderate sensorineural hearing loss b ilaterally. Speech drawer maker thresholds were obtained at 25 dB HL in the right ear and 25 d B HL in the left ear. Word recognition scores were great at 96% correct in the right ear an d 100% correct in the left ear. Side lying maneuvers were performed instead of Alina-Hallpike maneuvers because of Rios's back issues. Lying on his right side produced a complaint of dizziness with no observed nystagmus. Lying on his left side did not trigger any report of dizziness. Fukuda step testing was within normal limits. Results show bilateral mid to high frequency sensorineural hearing loss. His intermittent tinnitus is likely related to his history of noise exposure and hearing loss. Rios would yoav mckenzie receive benefit from amplification. His history of short duration positional vertigo is consistent with BPPV. He tested negative for this today. We discussed him performing Br andt-Daroff exercises as needed when he experiences vertigo over the next week. Rios will return for a hearing aid consultation with Isaura Richter and follow-up for vertigo with ri. documented in this enc ounter Plan of Treatment +--------+---------+ + + + | Date | Type | Specialty | Care Team | Description | +--------+---------+ + + + | 05/19/ | Office | Cardiology | Karen Bansal, | | 2019 | Visit | [address] | | | | | | [place] | | | | | | [address] | | | | | | | | +--------+---------+ + + + + + +--------+ + + | Name | Type | Priori | Associated Diagnoses | Order Schedule | | | | ty | | | + + +--------+ + + | Ambulatory Referral | Outpatient | Routin | Vertigo | Ordered: 10/01/2019 | | to [facility] | Referral | e | | | + + +--------+ + + documented as of this encounter Visit Diagnoses + + | Diagnosis | + + | BPPV (benign paroxysmal positional vertigo), unspecified laterality - Primary | + + | Sensorineural hearing loss (SNHL) of both ears | + + | Tinnitus, bilateral Unspecified tinnitus | + + documented in this encounter"
--- OUTSIDE RECORDS SUMMARY | ~2020-01-25 | XMS | Encounter Summary ---
Demographics + + + | Address | [address] | | | [place] [address] | + + + | Home Phone | | + + + | Preferred Language | Unknown | + + + | Marital Status | | + + + | Sabianism Affiliation | 1013 | + + + | Race | Unknown | + + + | Ethnic Group | Unknown | + + + Author + + + | Author | [facility] | | | and [place] | + + + | Organization | [facility] | | | [...] [place] | | | | | [address] | | + + + + + Care Team Providers + +------+ + | Care Pcts Name | Role | Phone | + +------+ + | Earle Chacko MD | PCP | | + +------+ + Encounter Details +--------+ + + + + | Date | Type | Department | Care Team | Description | +--------+ + + + + | 04/23/ | Hospital | [facility] | Miguel Zuniga | Diffuse large B-cell | | 2017 | Encounter | [facility] | MD Gerber [address] | lymphoma of | | | | [facility]OGY CLIN[facility] [address] | [address] [place] | intra-abdominal | | | | [address] [place] | [place] [address] | lymph nodes (HCC) | | | | [place] [address] | [phone] | (Primary Dx) | | | | [phone] | | | +--------+ + + + [...] + + + | Blood Pressure | 144/89 | 04/23/2017 9:19 AM | | | | | PDT | | + + + + + | Pulse | 52 | 04/23/2017 9:19 AM | | | | | PDT | | + + + + + | Temperature | 36 C (96.8 F) | 04/23/2017 9:19 AM | | | | | PDT | | + + + + + | Respiratory Rate | 16 | 04/23/2017 9:19 AM | | | | | PDT | | + + + + + | Oxygen Saturation | 95% | 04/23/2017 9:19 AM | | | | | PDT | | + + + + + | Inhaled Oxygen | - | - | | | Concentration | | | | + + + + + | Weight | 143.1 kg (315 lb 7.7 | 04/23/2017 9:19 AM | | | | oz) | PDT | | + + + + + | Height | - | - | | + + + + + | Body Mass Index | 40.5 | 07/18/2016 4:16 PM | | | [...] encounter Progress Notes Miguel Zuniga MD - 04/23/2017 9:29 AM PDTFormatting of this note might be diff erent from the original. Hem-Onc Progress Note [facility] Pt. Name/Age/: Gerber Galindo Jr. 66 y.o. 1950 Med. Record Number: [id number] Date of admission: 04/23/2017 Assessment and plan: 1. Diffuse Large B-Cell lymphoma, Jun, 2016 [facility] subtype Discussion today first with regard to restaging evaluation reviewing the results of a CT sc an of the abdomen and pelvis with images that I was able to personally view disclosing furth er reduction in the caliber of left iliac adenopathy. This is the area where patient's init ial disease had begun and thus it was reassuring with regard to decrease in caliber of these enlarged lymph nodes. We discussed the discordance between patient's persistent lymphedema suggesting possibility of chronic long-term impairment in lymphatic drainage from the left leg. We were encouraged however that lymphedema pump seen to be having a positive contribut ion to management of this complication. Discussion concerning patience pruritic skin rash over the left shoulder more consistent wi th folliculitis. We suggested topical therapy such as Caladryl together with hot compresses . Patient might also benefit from systemic antibiotic therapy to control this. Discussion concerning pros and cons of continuation of current anticoagulation with Xarelto . Patient never actually identified as having venous thrombosis. We discussed how patient' s current aspirin therapy likely to be sufficient protection to allow discontinuation Go-ahead with today's next planned infusion of rituximab maintenance therapy and continued bimonthly follow-up. Subjective: The patient chart and medications were reviewed in detail and the patient was seen and exam ined. Gerber Galindo Jr. is a 66 y.o. male returns today for report concerning restaging evalu ation and then continuation of a program of maintenance therapy because of a composite B-luisa l lymphoma. Interim history noting subjective and objective improvement in the control of left leg lymp hedema since beginning a multi phase left leg lymphedema pump. Patient describes a reductio n in the caliber of his left leg when compared to the right by as much as 15% over earlier b aseline. He is also continuing on a program of massage through [place] and physical the rapy there. He wonders whether it is safe for him to walk as a means of maintaining exercis e. He describes an earlier episode of shingles involving a left lower lumbar dermatomal segmen t at the time of initial diagnosis of lymphoma in of year 2015. More recently he has developed a rash over the left shoulder and wonders if this might also be another outbreak. PSH: Reviewed, no changes to admission H&P. Past Medical History: Diagnosis Date Benign neoplasm of colon Chronic ischemic heart disease Depression Dyspnea Esophageal reflux Hyperglycemia Hyperlipemia Hypertension Obesity Superficial injury of forearm Review of Systems: Constitutional: Denies fatigue. Denies high fevers, shaking chills, anorexia, nausea, vomit ing, weight loss, or night sweats. Appetite without changes. Ear, Nose, Mouth, Throat: Denies odynophagia, dysphagia, or tinnitus. Cardiovascular: Denies shortness of breath, dyspnea on exertion, chest pain, palpitations o r orthopnea. Respiratory: Denies cough, hemoptysis, or sputum production. Gastrointestinal: Denies abdominal pain, constipation, diarrhea, melena, or bright red bloo d per rectum. Genitourinary: Denies hematuria or dysuria. Musculoskeletal: Intermittent pain in knees, and ankles and shoulders. Neurologic: Denies headache, visual changes, or numbness/tingling of the extremities. State s vision varies more blurred today. Endocrine: Denies heat/cold intolerance. States having lymphedema in the left leg. States e floresita in both legs. Hematologic: Denies spontaneous bruising or bleeding. Integumentary: Denies rash, wounds or other skin concerns. Pain: Denies pain. Review of systems as above otherwise negative Scheduled Medications: Continuous Infusions: PRN Meds:. Allergy: Allergies Allergen Reactions Codeine "wires him up" Discharge Medications Unchanged Medications Details aspirin 81 mg EC tablet Take 162 mg by mouth Daily. carvedilol 25 mg tablet Take 25 mg by mouth 2 times daily (with breakfast & dinner). Taking 1.5 tabs twice daily. aka: COREG cetirizine 10 mg tablet Take 10 mg by mouth Daily. aka: zyrTEC clotrimazole-betamethasone cream Apply topically Daily as needed. aka: LOTRISONE cyanocobalamin 100 MCG tablet Take 50 mcg by mouth Daily. aka: VITAMIN B-12 furosemide 20 mg tablet Take 20 mg by mouth Daily. aka: LASIX gabapentin 100 mg capsule Take by mouth Daily. 100 mg in AM, 200 mg in afternoon, also taken with 300 mg in evening s. aka: NEURONTIN gabapentin 300 mg capsule Take 300 mg by mouth Daily. aka: NEURONTIN GINSENG PO Take 2 tablets by mouth. Takes it for one week the week after chemo levothyroxine 50 mcg tablet aka: SYNTHROID, LEVOTHROID LORazepam 1 mg tablet Take 1 tablet by mouth every 6 hours as needed (Nausea/Vomiting). aka: ATIVAN ondansetron 8 MG tablet Take 1 tablet by mouth 2 times daily. For two days after each chemo and then may take one tab every 8 hours if needed for nausea aka: ZOFRAN traMADol 50 mg tablet Take 50 mg by mouth every 6 hours as needed. aka: ULTRAM VITAMIN B COMPLEX PO Take by mouth. VITAMIN E COMPLEX PO Take by mouth. XARELTO 10 mg tablet Generic drug: rivaroxaban Take 1 tablet by mouth Daily. Objectives: Temp: 36 C (96.8 F) BP: 144/89 Pulse: 52 Resp: 16 SpO2: 95 % on Min/Max Temp past 24 hours:Temp Av C (96.8 F) Min: 36 C (96.8 F) Max: 36 C (96.8 F) No intake or output data in the 24 hours ending 04/23/17 0929 Wt. Admission: Weight: (!) 143.1 kg (315 lb 7.7 oz) Wt. Current: Weight: (!) 143.1 kg ( 315 lb 7.7 oz) Physical Exam: Exam: General: The patient is alert and oriented. No acute distress. HEENT: No thrush. Breast: Not examined Genitourinary: Deferred. Extremities: Nontender, no erythema, no edema. Skin: Folliculitis present over the left posterior shoulder region but not consistent with shingles. Lymph: No palpable nodes in the neck, supraclavicular fossa, axilla or groin. Neurological: Cranial nerves are intact. Normal sensory and motor function, No focal defi cits noted. Muscular/Skeletal: No acute bony tenderness. Psychiatric: Normal mood and affect. Diagnostic studies: Available data and images were reviewed personally. See reports. Significant results and findings are addressed here or in the Assessment and Plan. Recent Labs Lab 04/23/17 0851 WBC 2.8* HGB 12.5* HCT 35.5* PLT 104* ECHNIQUE: After administration of 95 mL Omnipaque 350 intravenously and oral contrast, axial CT imaging was obtained through the abdomen and pelvis with coronal and sagittal reformats. CLINICAL INFORMATION: Reevaluate left iliat lymph node seen on December 01 COMPARISON: 12/01/2016. FINDINGS: LUNGS: Bases are clear. Coronary artery calcifications are noted. BONES: No acute osseous abnormality. No osteoblastic or osteolytic lesion. ABDOMEN/PELVIS: Abdominal wall: Left inguinal region postoperative changes. Liver: Normal. Gallbladder: Cholecystectomy changes. Pancreas: Normal. Spleen: Normal. Adrenals: Normal. Kidneys: Normal. Ureters: Normal Urinary Bladder: Normal. Reproductive organs: Dystrophic calcifications of the normal sized prostate. Bowel: Multiple small left colonic diverticula without pericolonic inflammation. Normal appendix. No evidence of bowel obstruction. Normal caliber of the bowel. Peritoneum: No ascites or free air. No lymphadenopathy. Vessels and lymphatics: Interval decreased size of the left iliac chain lymph node, currently measuring 2.1 x 1.9 cm, previously 2.9 x 2.2 cm. No other lymph node enlargement. Normal caliber of the abdominal aorta with mild vascular calcifications. IMPRESSION - Interval decreased size of the left iliac chain lymph node when compared with CT dated 12/01/2016. Incidental findings as above. Dictated and Signed by: Philip Rodriguez MD Electronically signed by: Miguel Zuniga, 04/23/2017 9:29 [facility] TIME SPENT 25 MIN. > 50% AT BEDSIDE, WITH FAMILY/PATIENT IN CARE AND SLEEPING CAR CONDUCTOR ON UNIT AND CO ORDINATION OF CARE Portions of this chart may have been created with [employer] voice recognition software. Occasi onal wrong-word or sound-alike substitutions may have occurred due to the inherent valencia itations of voice recognition software. Please read the chart carefully and recognize, using context, where these substitutions have occurred. Mckayla Reardon, [employer] - 04/23/2017 9:22 AM PDTREVIEW O F SYSTEMS Constitutional: Denies fatigue. Denies high fevers, shaking chills, anorexia, nausea, vomit ing, weight loss, or night sweats. Appetite without changes. Ear, Nose, Mouth, Throat: Denies odynophagia, dysphagia, or tinnitus. Cardiovascular: Denies shortness of breath, dyspnea on exertion, chest pain, palpitations o r orthopnea. Respiratory: Denies cough, hemoptysis, or sputum production. Gastrointestinal: Denies abdominal pain, constipation, diarrhea, melena, or bright red bloo d per rectum. Genitourinary: Denies hematuria or dysuria. Musculoskeletal: Intermittent pain in knees, and ankles and shoulders. Neurologic: Denies headache, visual changes, or numbness/tingling of the extremities. State s vision varies more blurred today. Endocrine: Denies heat/cold intolerance. States having lymphedema in the left leg. States e floresita in both legs. Hematologic: Denies spontaneous bruising or bleeding. Integumentary: Denies rash, wounds or other skin concerns. Pain: Denies pain. Note: Pt is here for tx and labs My chart: documented in this encounter Plan of Treatment +--------+---------+ + + + | Date | Type | Specialty | Care Team | Description | +--------+---------+ + + + | 05/19/ | Office | Cardiology | Karen Bansal, | | | 2019 | Visit | | MD Patricia JOHNSON | | | | | | [place], [place] | | | | | | [address] | | | | | | | | +--------+---------+ + + + documented as of this encounter Visit Diagnoses + + | Diagnosis | + + | 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
--- OUTSIDE RECORDS SUMMARY | ~2020-01-25 | XMS | Encounter Summary ---
Demographics + + + | Address | [address] | | | [place] [address] | + + + | Home Phone | | + + + | Preferred Language | Unknown | + + + | Marital Status | | + + + | Zoroastrian Affiliation | 1013 | + + + [...] [place] | | | | | [address] | | + + + + + Care Team Providers + +------+ + | Care Lye Peel Operator Name | Role | Phone | [...] | +--------+ + + + + | 10/09/ | Telephone | [facility] | Mohamud, | Other | | 2018 | | [facility] | Gerber Benson MD [address] | | | | | [facility] CL[facility] [address] | [facility] | | | | | [address] | [place] [address] | | | | | [place] [address] | [phone] | | | | | [phone] | | | +--------+ + + + [...] [place] | | | | | | [address] | | | | | | | | +--------+---------+ + + + + +------+--------+ + + | Name | Type | Priori | Associated Diagnoses | Order Schedule | | | | ty | | | + +------+--------+ + + | Comprehensive | Lab | STAT | Pre-procedure lab | Expected: 11/21/2017 | | Metabolic Panel | | | exam | (Approximate), | | | | | | Expires: 10/09/2018 | + +------+--------+ + + documented as of this encounter Visit Diagnoses + + | Diagnosis | + + | Pre-procedure lab exam - Primary Pre-procedural laboratory examination | + + documented in this encounter"
--- OUTSIDE RECORDS SUMMARY | ~2020-01-25 | XMS | Encounter Summary ---
Demographics + + + | Address | [address] | | | [place] [address] | + + + | Home Phone | | + + + | Preferred Language | Unknown | + + + | Marital Status | | + + + | Lutheran Affiliation | 1013 | + + + | Race | Unknown | + + + | Ethnic Group | Unknown | + + + Author + + + | Author | [facility] | | | and [place] | + + + | Organization | [facility] | | [...] [place] | | | | | [address] | | + + + + + Care Team Providers + +------+ + | Care Forensic Psychiatrist Name | Role | Phone | + [...] large b-cell | Gerber Benson, | [address] | | | | | lymphoma, | MD [address] | [place], | | | | | intra-abdomi | [address] | [place] [address] | | | | | nal lymph | [place], | Phone: | | | | | nodes (HCC) | [place] [address] | [phone] | | | | | Procedures | Phone: | Fax: | | | | | [place] | [phone] | [phone] | | | | | INJECTION, | Fax: | | | | | | FAMOTIDINE, | [phone] | | | | | | 20 MG [place] | | | | | | | RITUXIMAB | | | | | | | INJECTION, | | | | | | | 100 MG [place] | | | | | | | LORAZEPAM | | | | | | | INJECTION, 2 | | | | | | | MG [place] | | | | | | | MEPERIDINE | | | | | | | HYDROCHL | | | | | | | /100 MG [place] | | | | | | | DIPHENHYDRAM | | | | | | | INE HCL | | | | | | | INJECTIO, 50 | | | | | | | MG [place] | | | | | | | METHYLPREDNI | | | | | | | SOLONE | | | | | | | INJECTION, | | | | | | | 125 MG [place] | | | | | | | DEXAMETHASON | | | | | | | E SODIUM | | | | | | | PHOS, 1 MG | | | | | | | [place] NORMAL | | | | | | | SALINE | | | | | | | SOLUTION | | | | | | | INFUS, 500 | | | | | | | ML [place] | | | | | | | NORMAL | | | | | | | SALINE | | | | | | | SOLUTION | | | | | | | INFUS, 250 | | | | | | | ML [place] | | | | | | | STERILE | | | | | | | WATER/SALINE | | | | | | | , 10 ML [place] | | | | | | | CHEMOTHER, | | | | | | | IV PUSH,EA | | | | | | | ADD DRUG [place] | | | | | | | CHEMOTHER, | | | | | | | IV INFUSION, | | | | | | | 1 HR [place] | | | | | | | CHEMOTHER, | | | | | | | IV INFUSION, | | | | | | | EA HR [place] | | | | | | | CHEMOTHER,NO | | | | | | | N-HORMONE | | | | | | | ANTI-NEOPL, | | | | | | | SUB-Q/IM [place] | | | | | | | [...] [place] | intra-abdominal | | | | [place], | [place] [address] | lymph nodes (HCC); | | | | [place] [address] | [phone] | Lymphedema of left | | | | [phone] | | lower extremity | +--------+ + [...] + documented as of this encounter Progress Livier Mir RN - 08/13/2017 2:16 PM PSTPatient discharged [...] [place] | | | | | | [address] | | | | | | | [...] ST[address] | [address] | [place] | [phone] | | [facility] | | [address] | | | - LABORATORY | | [...] (H) | 70 - 109 mg/dL | [facility] | | | | [...] mL/min/1.73m2 | [facility] | | | [place] | RATE,ESTIMATED | | MEDICAL | | | | mL/min/1.85r0Guxc than | | CENTER - | | [...] | bulin Ratio | | | [facility] | | | | | | MEDICAL | | | | | | CENTER - | | | | | | LABORATORY | | + + + + + + | BUN/Creatin | 18.3 | | [facility] | | | ine Ratio | | | [facility] | | [...] + | [facility] | [address] | [place] | [phone] | | [facility] | | [address] | | | - LABORATORY | | | | + + + + + Lactate Dehydrogenase (08/13/2017 9:05 AM PST) + +-------+ + + + | Component | Value | Ref Range | Performed | Pathologist | | | | | At | Signature | + +-------+ + + + | LDH TOTAL | 161 | 91 - 180 U/L | [facility] [...] [address] | [place] | [phone] | | [facility] | | [address] | | | - LABORATORY | | [...] Units 500 Units (5 | | 17 2:07 | Units | | | | [...]
--- OUTSIDE RECORDS SUMMARY | ~2020-01-25 | XMS | Encounter Summary ---
Demographics + + + | Address | [address] | | | [place] [address] | + + + | Home Phone | | + + + | Preferred Language | Unknown | + + + | Marital Status | | + + + | Rastafarian Affiliation | 1013 | + + + [...] [place] | | | | | [address] | | + + + + + Care Team Providers + +------+ + | Care Molding Associate Name | Role | Phone | + [...] + + | 03/25/ | Hospital | [facility] | Mohamud, | Diffuse large B-cell | | 2018 | Encounter | [facility] | Joaquim Benson MD [address] | lymphoma of | | | | [facility]Y CLIN[facility] [address] | [address] [place] | intra-abdominal | | | | [address] [place] | [place] [address] | lymph nodes (HCC) | | | | [place] [address] | [phone] | | | | | [phone] | | | +--------+ + + + [...] + + + | Blood Pressure | 136/78 | 03/25/2018 8:38 AM | | | | | PDT | | + + + + + | Pulse | 56 | 03/25/2018 8:38 AM | | | | | PDT | | + + + + + | Temperature | 35.7 C (96.3 F) | 03/25/2018 8:38 AM | | | | | PDT | | + + + + + | Respiratory Rate | 18 | 03/25/2018 8:38 AM | | | | | PDT | | + + + + + | Oxygen Saturation | 96% | 03/25/2018 8:38 AM | | | | | PDT | | + + + + + | Inhaled Oxygen | - | - | | | Concentration | | | | + + + + + | Weight | 146 kg (321 lb 14 | 03/25/2018 8:38 AM | | | | oz) | PDT | | + + + + + | Height | - | - | | + + + + + | Body Mass Index | 41.33 | 02/20/2018 1:19 PM | | | [...] encounter Progress Notes Joaquim Mallory MD - 03/25/2018 8:20 AM PDTFormatting of this note might be differe nt from the original. Hematology/Oncology Progress Note [place], [place] Pt. Name/Age/: Joaquim Sanchez Jr. 67 y.o. 1950 Med. Record Number: [id number] Date of admission: 03/25/2018 The patient's primary care provider is Kelsey Quintanilla MD. Identifying Statement: Joaquim Sanchez Jr. is a 67 y.o. male from [address] [address] with Mixed Diffuse Large B-Cell/Follicular Lymphoma in [facility]. The patient chart and medications were [...] lower extremity. CT abdomen/Pelvis with contrast 2016 ([facility]). Ex tensive periaortic lymphadenopathy (1.8 cm and 2.1 cm respectively), extensive adenopathy ex tending out along the left common iliac artery and encasing the left external iliac artery ( 4.4 cm) with compromise of the left external iliac vein. 2. Open laparotomy with LEFT ileal retroperitoneal lymph node biopsy ([facility], [facility]) June 242015. Specimen #[id number] ([facility]); Diffuse Large B-Cell lymph raciel, germinal center [...] September 04, 2016. 10. CT Abdomen/Pelvis at [facility] on September 12, 2016; Positive Response when [...] (PRIMA protocol). 14. Repeat CT scan at [facility], [place], [place] on December 01, [address] [...] [address] scan at [facility] on April 18, 2017 demonstrated decreased left [...] [address]. [address] scan at [facility] on November 21, 2017 demonstrated decreased left [...] Joaquim Sanchez Jr. returned to clinic on 03/25/2018 with his , Mara, for follow -up and treatment of composite diffuse large B-cell/follicular B-Cell Lymphoma. Review of systems is notable for the fact that Rios's chronic left lower extremity edema p ersists, but is generally less painful. Clinical exam is notable for the absence of lymphadenopathy. Laboratory exam is notable for grade 1 leukopenia without neutropenia and grade 1 thrombocy topenia. Assessment: Mixed, diffuse large B-Cell/follicular B-cell lymphoma, at least stage III. Plan; Proceed with Cycle #10 of a planned 12 cycles of maintenance rituximab, 375 mg/m ev timmy two months. Return on May 20, 2018 for cycle #11. Return on July 15, 2018 for cycle #12, to be followed by repeat imaging to assess for on going response. Review of Systems: Constitutional: Reports energy level is good. Weight loss from 147.6 kg on 01/28/18 to 146 kg today.Denies high fevers, shaking chills, anorexia, nausea, vomiting, or night sweats. Appe tite without changes. Ear, Nose, Mouth, Throat:Reports had 4 teeth pulled and mouth sores afterwards, put on acyc lovir 200 mg 1 tablet every 4 hours afterwards, still taking. Denies dysphagia or tinnitus. Cardiovascular: Reports dyspnea with exertion, continues unchanged. Denies shortness of leonid ath, chest pain, palpitations or orthopnea. Respiratory: Denies cough, hemoptysis, or sputum production. Gastrointestinal: Reports occasional constipation and diarrhea. Denies abdominal pain, dominik na, or bright red blood per rectum. Genitourinary: Denies hematuria or dysuria. Musculoskeletal: Reports chronic generalized joint pain. Neurologic: Reports blurry vision continues after treatment lasts a few days and then resol ves, unchanged. Reports numbness and tingling in bilateral feet continue, unchanged. Denies headache. Endocrine: Reports peripheral edema due to lymphedema in left leg and foot continues, uncha nged. Denies heat/cold intolerance. Hematologic: Denies spontaneous bruising or bleeding. Integumentary: Denies rash, wounds or other skin concerns. Pain: Denies pain. Note: Here for follow up, labs, and 4 hour treatment. My chart: Declined Review of systems as above otherwise negative Scheduled Medications: Current Outpatient Prescriptions Medication Sig Dispense Refill acyclovir (ZOVIRAX) 200 mg capsule Take 200 mg by mouth every 4 hours (while awake). aspirin 81 mg EC tablet Take 81 [...] by mouth Daily as needed for Anxiety. metFORMIN (GLUCOPHAGE) 500 mg tablet Take 500 [...] VITAMIN E COMPLEX PO Take by mouth. No current facility-administered medications for this encounter. Facility-Administered Medications Ordered in Other Encounters Medication Dose Route Frequency Provider Last Rate Last Dose ethyl chloride spray Topical PRN Joaquim Mallory MD heparin 100 units/mL flush injection 500 Units 5 mL Intracatheter PRN Joaquim robles MD 500 Units at 03/25/18 1312 Allergies: Allergy: Allergies Allergen Reactions Codeine "wires [...] Right 08/11/2017 [facility] KNEE SURGERY Bilateral stent 2014 RCA TONSILLECTOMY AND ADENOIDECTOMY Social History Social [...] Lymphedema of left lower extremity Objectives: Temp: 35.7 C (96.3 F) BP: 136/78 Pulse: 56 Resp: 18 SpO2: 96 % on Min/Max Temp past 24 hours:Temp Av.7 C (96.3 F) Min: 35.7 C (96.3 F) Max: 3 5.7 C (96.3 F) No intake or output data in the 24 hours ending 03/25/18 1334 Wt. Admission: Weight: (!) 146 kg (321 lb 14 oz) Wt. Current: Weight: (!) 146 kg (321 l b 14 oz) Wt Readings from Last 3 Encounters: 03/25/18 (!) 146 kg (321 lb 14 oz) 01/28/18 (!) 147.6 kg (325 lb 6.4 oz) 12/03/17 (!) 147 kg (324 lb 1.2 oz) Body mass index is 41.33 kg/m. Physical Exam: General: The patient is [...] Ma., Rebel REdita., Andie Menezes., Michael Trejo., Michael TDusty., Armando Diamond., Fatoumata, P .P.: Toxicity [...] JOAQUIM SANCHEZ JR. ( ) as of 03/25/2018 13:27 Ref. Range 03/25/2018 08:05 WBC Latest Ref Range: 4.0 - 11.0 K/uL 3.1 (L) RBC COUNT Latest Ref Range: 4.30 - 5.70 M/uL 4.53 Hgb Latest Ref Range: 13.5 - 18.0 g/dL 13.5 Hct, Final Latest Ref Range: 40.0 - 51.0 % 39.4 (L) MCV Latest Ref Range: 83.0 - 101.0 fL 87.0 MCH Latest Ref Range: 28.0 - 35.0 pg 29.8 MCHC Latest Ref Range: 32.0 - 36.0 g/dL 34.3 RDW-CV Latest Ref Range: <15.0 % 16.0 (H) Platelet Count Latest Ref Range: 140 - 440 K/uL 111 (L) MPV Latest Units: fL 9.2 Absolute Neutrophils Latest Ref Range: 1.80 - 8.50 K/uL 2.10 Absolute Lymphocytes Latest Ref Range: 0.60 - 3.20 K/uL 0.70 Absolute Monocytes Latest Ref Range: 0.00 - 1.00 K/uL 0.20 Absolute Eosinophils Latest Ref Range: 0.00 - 0.40 K/uL 0.10 Absolute Basophils Latest Ref Range: 0.00 - 0.10 K/uL 0.00 % Neutrophils Latest Ref Range: 45.0 - 82.0 % 67.7 % Lymphocytes Latest Ref Range: 20.0 - 45.0 % 22.6 % Monocytes Latest Ref Range: 4.0 - 12.0 % 6.8 % Eosinophils Latest Ref Range: 0.0 - 5.0 % 2.3 % Basophils Latest Ref Range: 0.0 - 1.0 % 0.6 NA Latest Ref Range: 136 - 149 mmol/L 139 K Latest Ref Range: 3.5 - 5.1 mmol/L 3.8 Chloride Latest Ref Range: 98 - 109 mmol/L 107 Carbon dioxide Latest Ref Range: 24 - 31 mmol/L 26 ANION GAP Latest Ref Range: 3 - 16 mmol/L 6 GLUCOSE Latest Ref Range: 70 - 109 mg/dL 125 (H) BUN Latest Ref Range: 7 - 18 mg/dL 17 Creatinine Latest Ref Range: 0.60 - 1.30 mg/dL 1.00 BUN/CREA Unknown 17.0 ALBUMIN Latest Ref Range: 3.2 - 5.0 g/dL 3.7 Albumin/Globulin ratio Latest Ref Range: 0.8 - 2.0 1.5 Total protein Latest Ref Range: 6.0 - 7.8 g/dL 6.1 EGFR IF NOT Latest Ref Range: >=60 mL/min/1.73m2 >60 Calcium Latest Ref Range: 8.3 - 10.5 mg/dL 9.8 ALK PHOS Latest Ref Range: 40 - 110 U/L 53 ALT (SGPT) (REF) Latest Ref Range: 6 - 45 U/L 25 AST (SGOT) (REF) Latest Ref Range: 10 - 42 U/L 23 LDH TOTAL Latest Ref Range: 91 - 180 U/L 155 Bilirubin Total (Calculated) Latest Ref Range: 0.1 - 1.5 mg/dL 0.8 GLOBULIN Latest Ref Range: 2.1 - 3.8 g/dL 2.4 Pharmacovigilance: Results for JOAQUIM SANCHEZ JR. ( [...] 2006 , Vol. 47, No. 6, pp 0186-2837. In the first article, an observational study [...] observational study, by Marques bonilla al from [facility] th at reports neutropenia developed in [...] Medications No medications on file Discontinued Medications MELATONIN 5 MG TABLET Take by mouth nightly as needed. XARELTO 10 MG TABLET Take 1 tablet by mouth Daily. Procedure note: Day 1, Rituxan every 2 months x 2 years #11 (56-day cycle) Planned for 05/20/2018 Labs Lactate Dehydrogenase STAT, ONE TIME Starting when released OrderHistory Comprehensive Metabolic Panel STAT, ONE TIME Starting when released OrderHistory CBC with Differential STAT, ONE TIME Starting when released OrderHistory PRN Medications ethyl chloride spray Topical, PRN, Pain, Starting when released, Until Discontinued OrderHistory Nursing Orders OK to proceed with chemotherapy Order Details OrderHistory Plans for discharge QFU CBC,CMP,LDH Port DRAW IN 2 months with 4 hour infusion. OrderHistory Pre-Medications acetaminophen (TYLENOL) tablet 650 mg 650 mg, Oral, ONCE, Starting at treatment start time Give 30 minutes prior to riTUXimab. OrderHistory famotidine (PEPCID) injection 20 mg 20 mg, Intravenous, ONCE, Starting when released OrderHistory CHEMOTHERAPY riTUXimab (RITUXAN) 1,000 mg in sodium chloride 0.9% 1,000 mL infusion 375 mg/m2, Intravenous, ONCE, Starting 30 minutes after treatment start time Initial infusion: Start at 50 mg/hr. If [...] infusion at 50% of previous rate. OrderHistory Joaquim Mallory MD Portions of this chart may have been created with [employer] voice recognition software. Occasi onal wrong-word or [...] | | | | | | [facility] [place] | | | | | | [address] | | | | | | | | +--------+---------+ + + + documented as of this encounter Visit Diagnoses + + | Diagnosis | + + | Diffuse large B-cell lymphoma of intra-abdominal lymph nodes (HCC) Other malignant | | lymphomas of intra-abdominal lymph nodes | + + documented in this encounter
--- OUTSIDE RECORDS SUMMARY | ~2020-01-25 | XMS | Encounter Summary ---
Demographics + + + | Address | [address] | | | [place] [address] | + + + | Home Phone | | + + + | Preferred Language | Unknown | + + + | Marital Status | | + + + | Catholic Affiliation | 1013 | + + + | Race | Unknown | + + + | Ethnic Group | Unknown | + + + Author + + + | Author | [facility] | | | and [place] | + + + | Organization | [facility] | | | and [...] [place] | | | | | [address] | | + + + + + Care Team Providers + +------+ + | Care Technical Services Coordinator Name | Role | Phone | + +------+ + | Earle Chacko MD | PCP | | + +------+ + Encounter Details +--------+ + + + + | Date | Type | Department | Care Team | Description | +--------+ + + + + | 08/13/ | Hospital | [facility] | Miguel Zuniga | Diffuse large B-cell | | 2017 | Encounter | [facility] | MD Gerber [address] | lymphoma of | | | | [facility]OGY CLINIC [address] | [address] [place] | intra-abdominal | | | | [address] [place] | [place] [address] | lymph nodes (HCC) | | | | [place] [address] | [phone] | (Primary Dx) | | | | [phone] | | | +--------+ + + + [...] + + + | Blood Pressure | 132/66 | 08/13/2017 9:31 AM | | | | | PST | | + + + + + | Pulse | 59 | 08/13/2017 9:31 AM | | | | | PST | | + + + + + | Temperature | 36.2 C (97.2 F) | 08/13/2017 9:31 AM | | | | | PST | | + + + + + | Respiratory Rate | 16 | 08/13/2017 9:31 AM | | | | | PST | | + + + + + | Oxygen Saturation | 95% | 08/13/2017 9:31 AM | | | | | PST | | + + + + + | Inhaled Oxygen | - | - | | | Concentration | | | | + + + + + | Weight | 146.2 kg (322 lb 5 | 08/13/2017 9:31 AM | | | | oz) | PST | | + + + + + | Height | - | - | | + + + + + | Body Mass Index | 41.38 | 07/18/2016 4:16 PM | | | [...] encounter Progress Notes Miguel Zuniga MD - 08/13/2017 12:49 PM PSTFormatting of this note might be diff erent from the original. Patient is a 67 y.o. male seen today, 08/13/2017, for chemotherapy with Rituxan for mainten ance therapy for diffuse large B-cell lymphoma. Today is day 1 6th cycle therapy. Patient complaints: Left leg lymphedema Symptoms are stable during the past 24 hours. Advance Directives: not qaddressed Appropriate portions of the patient's past medical, surgical, family, and social history we re reviewed and updated. Review of Systems Constitutional: Denies fatigue. Denies high fevers, shaking chills, anorexia, nausea, vomit ing, weight loss, or night sweats. Appetite without changes. Ear, Nose, Mouth, Throat: Denies odynophagia, dysphagia. Occasional tinnitus. Cardiovascular: Denies shortness of breath, dyspnea on exertion, chest pain, palpitations o r orthopnea. Respiratory: Denies cough, hemoptysis, or sputum production. Gastrointestinal: Denies abdominal pain, constipation, diarrhea, melena, or bright red bloo d per rectum. Genitourinary: Denies hematuria or dysuria. Musculoskeletal: Intermittent pain in the shoulders, knees and in feet. Neurologic: Denies headache,or numbness/tingling of the extremities. Vision is becoming galina rred. 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 Endocrine: Denies peripheral edema or heat/cold intolerance. Lymphedema in the left leg. Hematologic: Denies spontaneous bruising or bleeding. Integumentary: Denies rash, wounds or other skin concerns. Pain: Denies pain. Objective: BP 132/66 | Pulse 59 | Temp 36.2 C (97.2 F) (Tympanic) | Resp 16 | Wt (!) 146.2 kg (322 lb 5 oz) | SpO2 95% | BMI 41.38 kg/m General appearance: alert, appears stated age and cooperative Data Review CBC: Lab Results Component Value Date WBC 3.6 (L) 08/13/2017 RBC 4.28 (L) 08/13/2017 BMP: Lab Results Component Value Date CO2 27 08/13/2017 BUN 19 (H) 08/13/2017 CALCIUM 9.5 08/13/2017 Assessment: Active Problems: 1. Diffuse large B-cell lymphoma of intra-abdominal lymph nodes (HCC) Plan: The patient has a documented plan of care to address pain. 1. Authorization for next planned rituximab infusion as maintenance therapy 2. Two-month follow-up 1 2:51 PM Mckayla Wells [facility] - 08/13/2017 9:41 AM PSTREVIEW OF SYSTEMS Constitutional: Denies fatigue. Denies high fevers, shaking chills, anorexia, nausea, vomit ing, weight loss, or night sweats. Appetite without changes. Ear, Nose, Mouth, Throat: Denies odynophagia, dysphagia. Occasional tinnitus. Cardiovascular: Denies shortness of breath, dyspnea on exertion, chest pain, palpitations o r orthopnea. Respiratory: Denies cough, hemoptysis, or sputum production. Gastrointestinal: Denies abdominal pain, constipation, diarrhea, melena, or bright red bloo d per rectum. Genitourinary: Denies hematuria or dysuria. Musculoskeletal: Intermittent pain in the shoulders, knees and in feet. Neurologic: Denies headache,or numbness/tingling of the extremities. Vision is becoming galina rred. 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 Endocrine: Denies peripheral edema or heat/cold intolerance. Lymphedema in the left leg. Hematologic: Denies spontaneous bruising or bleeding. Integumentary: Denies rash, wounds or other skin concerns. Pain: Denies pain. Note: Pt is here for 4 hour tx and labs My chart: documented in this encounter Plan of Treatment +--------+---------+ + + + | Date | Type | Specialty | Care Team | Description | +--------+---------+ + + + | 05/19/ | Office | Cardiology | Karen Bansal, | | | 2019 | Visit | | MD Patricia JOHNSON | | | | | | [place] | | | | | | [id number] | | | | | | | | +--------+---------+ + + + documented as of this encounter Visit Diagnoses + + | Diagnosis | + + | 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
--- OUTSIDE RECORDS SUMMARY | ~2020-01-25 | XMS | Encounter Summary ---
Demographics + + + | Address | [address] | | | [place] [address] | + + + | Home Phone | | + + + | Preferred Language | Unknown | + + + | Marital Status | | + + + | Gnosticist Affiliation | 1013 | + + + | Race | Unknown | + + + | Ethnic Group | Unknown | + + + Author + + + | Author | [facility] | | | and [place] | + + + | Organization | [facility] | | | and [...] [place] | | | | | [address] | | + + + + + Care Team Providers + +------+ + | Care Sterile Process Coordinator Name | Role | Phone | [...] | | | | | Primary | Mohamud, | Scan [address] | | | | | cutaneous | Gerber Benson, | [place] | | | | | diffuse | MD [address] | [place], [place] | | | | | large cell | [address] | [address] | | | | | B-cell | [place], | Phone: | | | | | lymphoma | [place] [address] | [phone] | | | | | (HCC) | Phone: | Fax: | | | | | Procedures | [phone] | [phone] | | | | | PET CT Skull | Fax: | | | | | | Base To Mid | [phone] | | | | | | Thigh [...] + + | 07/21/ | Hospital | [facility] | Mohamud, | Primary cutaneous | | 2016 | Encounter | [facility] PET SCAN | Gerber Benson MD [address] | diffuse large cell | | | | [address] [place] | [address] [place] | B-cell lymphoma | | | | [place] [address] | [place] [address] | ([facility]) | | | | [phone] | [phone] | | | | | | | [...] | | | | | [place] | | | | | | [address] | | | | | | | | +--------+---------+ + + + documented as of this encounter Procedures + +--------+ + + + | Procedure Name | Priori | Date/Time | Associated Diagnosis | Comments | | | ty | | | | + +--------+ + + + | PET CT SKULL BASE TO | Routin | 07/21/2016 | Primary cutaneous | Results for this | | MID THIGH | e | 1:16 PM | diffuse large cell | procedure are in the | | | | PDT | B-cell lymphoma | results section. 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
--- OUTSIDE RECORDS SUMMARY | ~2020-01-25 | XMS | Encounter Summary ---
Demographics + + + | Address | [address] | | | [place] [address] | + + + | Home Phone | | + + + | Preferred Language | Unknown | + + + | Marital Status | | + + + | Yazdanism Affiliation | 1013 | + + + | Race | Unknown | + + + | Ethnic Group | Unknown | + + + Author + + + | Author | [facility] | | | and [place] | + + + | Organization | [facility] | | | [...] [place] | | | | | [address] | | + + + + + Care Team Providers + +------+ + | Care Machine Tester Name | Role | Phone | + +------+ + | Earle Chacko MD | PCP | | + +------+ + Encounter Details +--------+ + + + + | Date | Type | Department | Care Team | Description | +--------+ + + + + | 09/06/ | Orders Only | [facility] | Miguel Zuniga | Diffuse large B-cell | | 2018 | | [facility] | MD Gerber [address] | lymphoma of | | | | [facility]OGY CLINIC [address] | [address] [place] | intra-abdominal | | | | [address] [place] | [place] [address] | lymph nodes (HCC) | | | | [place] [address] | [phone] | (Primary Dx) | | | | [phone] | | | +--------+ + + + [...] | | | | | [place], [place] | | | | | | [address] | | | | | | | | +--------+---------+ + + + + +------+--------+ + + | Name | Type | Priori | Associated Diagnoses | Order Schedule | | | | ty | | | + +------+--------+ + + | Basic Metabolic | Lab | Routin | Diffuse large | 1 Occurrences | | Panel | | e | B-cell lymphoma of | starting 09/06/2018 | | | | | intra-abdominal | until 09/06/2019 | | | | | lymph nodes (HCC) | | + +------+--------+ + + documented as of this encounter Visit Diagnoses + + | Diagnosis | + + | 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
--- OUTSIDE RECORDS SUMMARY | ~2020-01-25 | XMS | Encounter Summary ---
Demographics + + + | Address | [address] | | | [place] [address] | + + + | Home Phone | | + + + | Preferred Language | Unknown | + + + | Marital Status | | + + + | Hoahaoism Affiliation | 1013 | + + + | Race | Unknown | + + + | Ethnic Group | Unknown | + + + Author + + + | Author | [facility] | | | and [place] | + + + | Organization | [facility] | | [...] [place] | | | | | [address] | | + + + + + Care Team Providers + +------+ + | Care Obstetrics Specialist Name | Role | Phone | + [...] large b-cell | Gerber Benson, | [address] | | | | | lymphoma, | MD [address] | [place], | | | | | intra-abdomi | [address] | [place] [address] | | | | | nal lymph | [place], | Phone: | | | | | nodes (HCC) | [place] [address] | [phone] | | | | | Procedures | Phone: | Fax: | | | | | ND | [phone] | [phone] | | | | | INJECTION, | Fax: | | | | | | FAMOTIDINE, | [phone] | | | | | | 20 MG ND | | | | | | | RITUXIMAB | | | | | | | INJECTION, | | | | | | | 100 MG ND | | | | | | | LORAZEPAM | | | | | | | INJECTION, 2 | | | | | | | MG ND | | | | | | | MEPERIDINE | | | | | | | HYDROCHL | | | | | | | /100 MG ND | | | | | | | DIPHENHYDRAM | | | | | | | INE HCL | | | | | | | INJECTIO, 50 | | | | | | | MG ND | | | | | | | METHYLPREDNI | | | | | | | SOLONE | | | | | | | INJECTION, | | | | | | | 125 MG ND | | | | | | | DEXAMETHASON | | | | | | | E SODIUM | | | | | | | PHOS, 1 MG | | | | | | | ND NORMAL | | | | | | | SALINE | | | | | | | SOLUTION | | | | | | | INFUS, 500 | | | | | | | ML ND | | | | | | | NORMAL | | | | | | | SALINE | | | | | | | SOLUTION | | | | | | | INFUS, 250 | | | | | | | ML ND | | | | | | | STERILE | | | | | | | WATER/SALINE | | | | | | | , 10 ML ND | | | | | | | CHEMOTHER, | | | | | | | IV PUSH,EA | | | | | | | ADD DRUG ND | | | | | | | CHEMOTHER, | | | | | | | IV INFUSION, | | | | | | | 1 HR ND | | | | | | | CHEMOTHER, | | | | | | | IV INFUSION, | | | | | | | EA HR ND | | | | | | | CHEMOTHER,NO | | | | | | | N-HORMONE | | | | | | | ANTI-NEOPL, | | | | | | | SUB-Q/IM ND | | | | | | | [...] [place] | intra-abdominal | | | | [address] [place], | [place] [address] | lymph nodes (HCC); | | | | [place] [address] | [phone] | Lymphedema of left | | | | [phone] | | lower extremity | +--------+ + [...] Faxed progress note and scheduling orders to [place], [place] and spoke with LUZ Dodd at [facility]. AVS provided with lab values today. They will call if they have not heard from [facility] in the next few days. Discharged [...] | | | | | [place], [place] | | | | | | [address] | | | | | | | [...] [address] | [place] | [phone] | | [facility] | | [address] | | | - LABORATORY | | [...] | | | | | mg/dL | [facility] | | | | | | MEDICAL | | | | | | CENTER - | | | | | | LABORATORY | | + + + + + + | eGFR if not | >60Comment: GLOMERULAR | >=60 | [facility] | | | | FILTRATION | mL/min/1.73m2 | [facility] | | | [facility] | RATE,ESTIMATED | | MEDICAL | | | | mL/min/1.59s8Mhfc than | | CENTER - | | [...] | | | | | mg/dL | [facility] | | | | | | MEDICAL [...] [address] | [place] | [phone] | | [facility] | | [address] | | | - LABORATORY | | [...] [address] | [place] | [phone] | | [facility] | | [address] | | | - LABORATORY | | [...] + + | Performed at: - [address] [address], | REFERENCE LAB | | [place], [place] [id number] Echo Tech: Toney Arce MD, Phone: | [facility] | | [phone] | | + + + + + + + + | Performing | Address | City/State/Zipcode | Phone Number | | Organization | | | | + + + + + | REFERENCE LAB | [address] | [place], [place] | [phone] | | [facility] | [place] | [address] | | + + + + + [...]
--- OUTSIDE RECORDS SUMMARY | ~2020-01-25 | XMS | Encounter Summary ---
Demographics + + + | Address | [address] | | | [place] [address] | + + + | Home Phone [...] + | Author | [facility] | | | and [place] | + + + | Organization | [facility] | | | and [...] [place] | | | | | [address] | | + + + + + Care Team Providers + +------+ + | Care Lumber Sorter Machine Name | Role | Phone | + +------+ + | Earle Chacko MD | PCP | | + +------+ + Reason for Visit + + + | Reason | Comments | + + + | Chemotherapy | | + + + Encounter Details +--------+ + + + + | Date | Type | Department | Care Team | Description | +--------+ + + + + | 07/20/ | Telephone | [facility] | Patricia Mercado, | Chemotherapy | | 2015 | | MED CTR CHEMO | RN | | | | | INFUSION [address] | | | | | | [place], | | | | | | [place] [address] | | | | | | [phone] | | | +--------+ + + + [...] | | | | | [place], [place] | | | | | | [address] | | | | | | | | +--------+---------+ + + + documented as of this encounter Visit Diagnoses Not on filedocumented in this encounter"
--- OUTSIDE RECORDS SUMMARY | ~2020-01-25 | XMS | Encounter Summary ---
Demographics + + + | Address | [address] | | | [place] [address] | + + + | Home Phone | | + + + | Preferred Language | Unknown | + + + | Marital Status | | + + + | Advent Affiliation | 1013 | + + + | Race | Unknown | + + + | Ethnic Group | Unknown | + + + Author + + + | Author | [facility] | | | and [place] | + + + | Organization | [facility] | | | [...] [place] | | | | | [address] | | + + + + + Care Team Providers + +------+ + | Care Experimental Rocket Sled Mechanic Name | Role | Phone | + [...] | | ONCOLOGY CLINIC [address] | [facility] | | | | | [address] | [place] [address] | | | | | [place] [address] | [phone] | | | | | [phone] | | | +--------+ + + + [...] [place] | | | | | | [address] | | | | | | | [...]
--- OUTSIDE RECORDS SUMMARY | ~2020-01-25 | XMS | Encounter Summary ---
Demographics + + + | Address | [address] | | | [place] [address] | + + + | Home Phone [...] [place] | | | | | [address] | | + + + + + Care Team Providers + +------+ + | Care Podiatric Aide Name | Role | Phone | + +------+ + | Earle Chacko MD | PCP | | + +------+ + Reason for Visit +--------+ + | Reason | Comments | +--------+ + | Other | | +--------+ + Encounter Details +--------+ + + + + | Date | Type | Department | Care Team | Description | +--------+ + + + + | 11/22/ | Telephone | [facility] | [place], | Other | | 2018 | | MED CTR MEDICAL | Gerber Benson MD [address] | | | | | ONCOLOGY CLINIC [address] | [facility] | | | | | [address] | [place] [address] | | | | | [place] [address] | [phone] | | | | | [phone] | | | +--------+ + + + [...] [place] | | | | | | [address] | | | | | | | | +--------+---------+ + + + documented as of this encounter Visit Diagnoses Not on filedocumented in this encounter"
--- OUTSIDE RECORDS SUMMARY | ~2020-01-25 | XMS | Encounter Summary ---
Demographics + + + | Address | [address] | | | [place] [address] | + + + | Home Phone | | + + + | Preferred Language | Unknown | + + + | Marital Status | | + + + | Hoahaoism Affiliation | 1013 | + + + | Race | Unknown | + + + | Ethnic Group | Unknown | + + + Author + + + | Author | [facility] | | | and [place] | + + + | Organization | [facility] | | [...] [place] | | | | | [address] | | + + + + + Care Team Providers + +------+ + | Care Piano Machine Operator Name | Role | Phone | + +------+ + | Earle Chacko MD | PCP | | + +------+ + Reason for Visit + + + | Reason | Comments | + + + | Medication Refill | | + + + Encounter Details +--------+--------+ + + + | Date | Type | Department | Care Team | Description | +--------+--------+ + + + | 04/16/ | Refill | [facility] | [place], | Medication Refill | | 2017 | | [facility] | Gerber Benson MD [address] | | | | | ONCOLOGY CLINIC [address] | [address] [place] | | | | | [address] [place] | [place] [address] | | | | | [place] [address] | [phone] | | | | | [phone] | | | +--------+--------+ + + + Social History + +-------+ [...] [place] | | | | | | [address] | | | | | | | | +--------+---------+ + + + documented as of this encounter Visit Diagnoses + + | Diagnosis | + + | Diffuse large B-cell lymphoma of intra-abdominal lymph nodes (HCC) Other malignant | | lymphomas of intra-abdominal lymph nodes | + + documented in this encounter"
--- OUTSIDE RECORDS SUMMARY | ~2020-01-25 | XMS | Encounter Summary ---
Demographics + + + | Address | [address] | | | [place] [address] | + + + | Home Phone | | + + + | Preferred Language | Unknown | + + + | Marital Status | | + + + | Rastafarian Affiliation | 1013 | + + + | Race | Unknown | + + + | Ethnic Group | Unknown | + + + Author + + + | Author | [facility] | | | and [place] | + + + | Organization | [facility] | | | and [...] [place] | | | | | [address] | | + + + + + Care Team Providers + +------+ + | Care Paper Twister Name | Role | Phone | + [...] | | | nal lymph | [place] [address] | [address] | | | | | nodes (HCC) | Phone: | Phone: | | | | | Procedures | [phone] | [phone] | | | | | CT Abdomen | Fax: | Fax: | | | | | Pelvis w | [phone] | [phone] | | | | | Contrast | [...] + + | 09/05/ | Hospital | [facility] | Mohamud, | Diffuse large B-cell | | 2016 | Encounter | MED CTR MEDICAL | Joaquim Benson MD [address] | lymphoma of | | | | ONCOLOGY CLINIC [address] | [address] [place] | intra-abdominal | | | | [address] [place] | [place] [address] | lymph nodes (HCC) | | | | [place] [address] | [phone] | (Primary Dx) | | | | [phone] | | | +--------+ + + + [...] nt from the original. Hematology/Oncology Progress Note [facility] [place] Pt. Name/Age/: Joaquim Sanchez 66 y.o. 1950 Med. Record Number: [id number] Date of admission: 09/05/2016 Identifying Statement: Joaquim Sanchez is a 66 y.o. male from [address] [address] with Diffuse Large B-Cell Lymphoma. The patient [...] lower extremity. CT abdomen/Pelvis with contrast 2016 ([facility]). Ex tensive periaortic lymphadenopathy (1.8 cm and 2.1 cm respectively), extensive adenopathy ex tending out along the left common iliac artery and encasing the left external iliac artery ( 4.4 cm) with compromise of the left external iliac vein. 2. Open laparotomy with LEFT ileal retroperitoneal lymph node biopsy ([facility], [facility]) June 242015. Spec[id number] [facility] Diffuse Large B-Cell lymph raciel, [...] growth fact or support with Ne[facility] at [facility] in [facility] tomorrow. He'll be mayra eduled for a CT scan of the chest/abdomen/pelvis at [facility] in [facility] to assess response. Return to [facility] in about 10 days for isaias check [...] in [facility] Davida Ma., Rebel, R.H., Andie Menezes., Michael Trejo., Michael, TDusty., Dara, [...] and Transferrin STAT, ONE TIME, Sun09/05/16 at 823, For 1 occurrence OrderHistory Ferritin STAT, ONE [...] THE PREDNISONE Schedule CT of Abdomen/Pelvis at [facility] in about a week. . arrange marco [...] injection 25 mg 25 mg, Intravenous, ONCE, e 09/05/16 at 1000, For 1 dose OrderHistory ondansetron (ZOFRAN) 8 mg, dexamethasone (DECADRON) 4 mg in sodium chloride 0.9% 50 m L IVPB Intravenous, for 16 Minutes, ONCE, 09/05/16 at 1000, For 1 dose OrderHistory fosaprepitant (EMEND) 150 mg in sodium chloride 0.9% 150 mL IVPB 150 mg, Intravenous, for 20 Minutes, ONCE, e 09/05/16 at 1015, For 1 dose Do not [...] Stop infusion, activate code blue and notify MD. OrderHisto ry JOAQUIM TEJEDA MD Portions of this chart may have been created with [employer] voice recognition software. Occasi onal wrong-word or [...] | | | | | [facility] [facility] [place] | | | | | | [address] | | | | | | | [...]
--- OUTSIDE RECORDS SUMMARY | ~2020-01-25 | XMS | Encounter Summary ---
Demographics + + + | Address | [address] | | | [place] [address] | + + + | Home Phone | | + + + | Preferred Language | Unknown | + + + | Marital Status | | + + + | Denominational Affiliation | 1013 | + + + | Race | Unknown | + + + | Ethnic Group | Unknown | + + + Author + + + | Author | [facility] | | | and [place] | + + + | Organization | [facility] | | | [...] [place] | | | | | [address] | | + + + + + Care Team Providers + +------+ + | Care Sales Development Associate Name | Role | Phone | [...] + + | Closed | Specialty | Rehabilitatio | Diagnoses | | [facility] | | | Services | n | Lymphedema | Mohamud, | Oncology | | | Required | | of left | Joaquim Kelley, | Therapy [address] | | | | | lower | MD [address] | | | | | extremity | [address] | [place], | | | | | | [place], | [place] [address] | | | | | | [place] [address] | Phone: | | | | | | Phone: | [phone] | | | | | | [phone] | Fax: | | | | | | Fax: | [phone] | | | | | | [phone] | | +--------+ + + + + + Reason for Visit + + + | Reason | Comments | + + + | Follow-up | | + + + Encounter Details +--------+ + + + + | Date | Type | Department | Care Team | Description | +--------+ + + + + | 08/24/ | Hospital | [facility] | [facility], | Diffuse large B-cell | | 2016 | Encounter | [facility] | Joaquim Benson MD [address] | lymphoma of | | | | [facility] CL[facility] [address] | [address] [place] | intra-abdominal | | | | [address] [place] | [place] [address] | lymph nodes (HCC) | | | | [place] [address] | [phone] | (Primary Dx); | | | | [phone] | | Lymphedema of left | | | | | | lower extremity | +--------+ + [...] + + + | Blood Pressure | 133/69 | 08/24/2016 1:17 PM | | | | | PST | | + + + + + | Pulse | 63 | 08/24/2016 1:17 PM | | | | | PST | | + + + + + | Temperature | 35.9 C (96.6 F) | 08/24/2016 1:17 PM | | | | | PST | | + + + + + | Respiratory Rate | 20 | 08/24/2016 1:17 PM | | | | | PST | | + + + + + | Oxygen Saturation | 97% | 08/24/2016 1:17 PM | | | | | PST | | + + + + + | Inhaled Oxygen | - | - | | | Concentration | | | | + + + + + | Weight | 136.1 kg (300 lb 0.7 | 08/24/2016 1:17 PM | | | | oz) | PST | | + + + + + | Height | - | - | | + + + + + | Body Mass Index | 38.52 | 07/18/2016 4:16 PM | | | [...] encounter Progress Notes Joaquim Tejeda MD - 08/24/2016 1:23 PM PSTFormatting of this note might be differe nt from the original. Hematology/Oncology Progress Note [facility] [place] Pt. Name/Age/: Joaquim Sanchez 66 y.o. 1950 Med. Record Number: [id number] Date of admission: 08/24/2016 Identifying Statement: Joaquim Sanchez is a 66 y.o. male from [address] [address] with Diffuse Large B-Cell Lymphoma. The patient [...] lower extremity. CT abdomen/Pelvis with contrast 2016 ([facility]). Ex tensive periaortic lymphadenopathy (1.8 cm and 2.1 cm respectively), extensive adenopathy ex tending out along the left common iliac artery and encasing the left external iliac artery ( 4.4 cm) with compromise of the left external iliac vein. 2. Open laparotomy with LEFT ileal retroperitoneal lymph node biopsy ([place], [facility]) June 242015. Specimen #[id number] ([facility]); Diffuse Large B-Cell lymph raciel, [...] 14, 2016. Current Assessment & Plan Joaquim Sanchez returned to clinic on 08/24/2016 with his , Mara, for follow-up C ycle#2 Day #11 RCHOP chemotherapy for Diffuse Large B-Cell Lymphoma, at least Stage III. Review of systems is notable for nausea without emesis, fatigue, bowel irregularity and per sistent LEFT lower extremity edema. Clinical exam is notable for persistent LEFT lower extremity edema, which encompasses the e ntire left lower extremity. Laboratory exam is notable for mild neutropenia and thrombocytopenia. Assessment; Stage III diffuse large B-cell lymphoma. Left lower extremity lymphedema due to cancer. Plan; Refer to occupational therapy for fitting for left lower extremity compression garmen t. Return to clinic on September 04, 2016 for Cycle #3 of a planned 6 cycles of therapy. Lymphedema of left lower extremity Review of Systems: Constitutional:Energy low starting five days after treatment (after stops Prednisone), impr oving slightly yesterday. Reports intermittent nausea, helped by Zofran use. Reports appetit e is good- still eats 3 meals per day. Denies high fevers, anorexia, vomiting, weight loss o r night sweats. Ear, Nose, Mouth, Throat: Denies odynophagia, dysphagia, or tinnitus. Cardiovascular: Denies dyspnea on exertion, shortness of breath at rest, palpitations, ches t pain, or orthopnea. Respiratory: Denies cough, hemoptysis, or sputum production. Gastrointestinal: Reports constipation and loose stool (occasional diarrhea) is intermitten t.Intermittent abdominal pain reported. Denies melena or bright red blood per rectum. Genitourinary: Denies hematuria or dysuria. Musculoskeletal:Denies joint tenderness. Neurologic: Reports vision is blurry intermittently but rarely. Reports numbness and tingli ng in feet is unchanged. Headaches have been present intermittently in the past few days. Endocrine: Reports swelling in left extremity continues and is unchanged. Denies heat/cold intolerance. Hematologic: Denies spontaneous bruising or bleeding. Integumentary: Denies rash, wounds or other skin concerns. Pain: Intermittent abdominal pain is as high as 5/10 and as low as 0/10. Goal <4. ROS otherwise negative. Note: Here for follow up and labs. My chart: active Scheduled Medications: Current Outpatient [...] by mouth every 6 hours as needed. XARELTO 10 MG tablet Take 1 tablet [...] Lymphedema of left lower extremity Objectives: Temp: 35.9 C (96.6 F) BP: 133/69 mmHg Pulse: 63 Resp: 20 SpO2: 97 % on Min/Max Temp past 24 hours:No Data Recorded No intake or output data in the 24 hours ending 08/27/16 1119 Wt. Admission: Weight: (!) 136.1 kg (300 lb 0.7 oz) Wt. Current: Weight: (!) 136.1 kg ( 300 lb 0.7 oz) Wt Readings from Last 3 Encounters: 08/24/16 136.1 kg (300 lb 0.7 oz) 08/14/16 135.716 kg (299 lb 3.2 oz) 08/03/16 134.854 kg (297 lb 4.8 oz) Physical Exam: General: The [...] Am. J. Clin. Oncol.: Davida Ma., Rebel, REdita., Andie Menezes., Michael Trejo., Michael TDusty., Taty DiamondT., Fatoumata, P .P.: Toxicity And Response Criteria [...] Plan. Results for JOAQUIM SANCHEZ ( ) Ref. Range 08/24/2016 13:20 WBC Latest Ref Range: 4.0-11.0 K/uL 2.2 (LL) WBC morphology Unknown Normal RBC: Latest Ref Range: 4.30-5.70 M/uL 3.48 (L) Hgb Latest Ref Range: 13.5-18.0 g/dL 10.2 (L) Hct, Final Latest Ref Range: 40.0-51.0 % 30.2 (L) MCV Latest Ref Range: 83.0-101.0 fL 86.8 MCH Latest Ref Range: 28.0-35.0 pg 29.4 MCHC Latest Ref Range: 32.0-36.0 g/dL 33.9 RDW-CV Latest Ref Range: <15.0 % 19.4 (H) Platelet Count Latest Ref Range: 140-440 K/uL 100 (L) MPV Latest Units: fL 8.9 Absolute Neutrophils Latest Ref Range: 1.80-8.50 K/uL 1.30 (L) Absolute Lymphocytes Latest Ref Range: 0.60-3.20 K/uL 0.60 Absolute Monocytes Latest Ref Range: 0.00-1.00 K/uL 0.20 Absolute Eosinophils Latest Ref Range: 0.00-0.40 K/uL 0.00 Absolute Basophils Latest Ref Range: 0.00-0.10 K/uL 0.00 % Neutrophils Latest Ref Range: 45.0-82.0 % 59.5 Absolute Bands Latest Ref Range: 0.00-1.50 K/uL 0.35 % Bands Latest Ref Range: 0.0-5.0 % 16.0 (H) % Lymphocytes Latest Ref Range: 20.0-45.0 % 27.9 % Monocytes Latest Ref Range: 4.0-12.0 % 10.8 % Eosinophils Latest Ref Range: 0.0-5.0 % 0.7 % Basophils Latest Ref Range: 0.0-1.0 % 1.1 (H) Hypochromasia Latest Ref Range: (none) Slight (A) Platelet estimate Latest Ref Range: Adequate Decreased (A) Platelet, Giant Latest Ref Range: Not Present Present (A) NA Latest Ref Range: 136-149 mmol/L 140 K Latest Ref Range: 3.5-5.1 mmol/L 3.9 Chloride Latest Ref Range: 98-109 mmol/L 104 Carbon dioxide Latest Ref Range: 24-31 mmol/L 30 ANION GAP Latest Ref Range: 3-16 mmol/L 6 GLUCOSE Latest Ref Range: 70-109 mg/dL 120 (H) BUN Latest Ref Range: 7-18 mg/dL 11 BUN/CREA Unknown 11.5 Creatinine Latest Ref Range: 0.60-1.30 mg/dL 0.96 ALBUMIN Latest Ref Range: 3.2-5.0 g/dL 3.5 Albumin/Globulin ratio Latest Ref Range: 0.8-2.0 1.7 Total protein Latest Ref Range: 6.0-7.8 g/dL 5.6 (L) EGFR IF NOT Latest Ref Range: >=60 mL/min/1.73m2 >60 Calcium Latest Ref Range: 8.3-10.5 mg/dL 9.2 URIC ACID Latest Ref Range: 2.6-7.2 mg/dL 4.8 ALK PHOS Latest Ref Range: 40-110 U/L 59 ALT (SGPT) (REF) Latest Ref Range: 6-45 U/L 30 AST (SGOT) (REF) Latest Ref Range: 10-42 U/L 19 LDH TOTAL Latest Ref Range: 91-180 U/L 178 BILIRUBIN TOTAL Latest Ref Range: 0.1-1.5 mg/dL 0.3 GLOBULIN Latest Ref Range: 2.1-3.8 g/dL 2.1 BETA 2 MICROGLOBULIN Latest Ref Range: 1010 - 1730 ug/L 1811.0 (H) Pharmacovigilance: Palliative Care: Patient's Medications New Prescriptions No medications on file Modified Medications No medications on file Discontinued Medications ALLOPURINOL (ZYLOPRIM) 300 MG TABLET Take 1 tablet by mouth Daily. Procedure: JOAQUIM TEJEDA MD Portions of this chart may have been created with [employer] voice recognition software. Occasi onal wrong-word or [...] [place] | | | | | | [id number] | | | | | | | | +--------+---------+ + + + + + +--------+ + + | Name | Type | Priori | Associated Diagnoses | Order Schedule | | | | ty | | | + + +--------+ + + | * [facility] | Outpatient | Routin | Lymphedema of left | Ordered: 08/24/2016 | | Therapy - AMB | Referral | e | lower extremity | | | Referral | | | | | + + +--------+ + + documented as of this encounter Procedures + +--------+ + + + | Procedure Name | Priori | Date/Time | Associated Diagnosis | Comments | | | ty | | | | + +--------+ + + + | SLIDE REVIEW, | Routin | 08/24/2016 | Diffuse large | Results for this | | PERIPHERAL SMEAR | e | 1:20 PM | B-cell lymphoma of | procedure are in the | | | | PST | intra-abdominal | results section. | | | | | lymph nodes (HCC) | | + +--------+ + + + | BETA 2 MICROGLOBULIN | STAT | 08/24/2016 | Diffuse large | Results for this | | | | 1:20 PM | B-cell lymphoma of | procedure are in the | | | | PST | intra-abdominal | results section. | | | | | lymph nodes (HCC) | | + +--------+ + + + | DIFFERENTIAL, MANUAL | Routin | 08/24/2016 | Diffuse large | Results for this | | | e | 1:20 PM | B-cell lymphoma of | procedure are in the | | | | PST | intra-abdominal | results section. | | | | | lymph nodes (HCC) | | + +--------+ + + + | CBC WITH | STAT | 08/24/2016 | Diffuse large | Results for this | | DIFFERENTIAL | | 1:20 PM | B-cell lymphoma of | procedure are in the | | | | PST | intra-abdominal | results section. | | | | | lymph nodes (HCC) | | + +--------+ + + + | URIC ACID | STAT | 08/24/2016 | Diffuse large | Results for this | | | | 1:20 PM | B-cell lymphoma of | procedure are in the | | | | PST | intra-abdominal | results section. | | | | | lymph nodes (HCC) | | + +--------+ + + + | LACTATE | STAT | 08/24/2016 | Diffuse large | Results for this | | DEHYDROGENASE | | 1:20 PM | B-cell lymphoma of | procedure are in the | | | | PST | intra-abdominal | results section. | | | | | lymph nodes (HCC) | | + +--------+ + + + | COMPREHENSIVE | STAT | 08/24/2016 | Diffuse large | Results for this | | METABOLIC PANEL | | 1:20 PM | B-cell lymphoma of | procedure are in the | | | | PST | intra-abdominal | results section. | | | | | lymph nodes (HCC) | | + +--------+ + + + documented in this encounter Results Differential, Manual (08/24/2016 1:20 PM PST) + + + + + + | Component | Value | Ref Range | Performed | Pathologist | | | | | At | Signature | + + + + + + | % Segmented | 45.0 (L) | 50.0 - 70.0 % | [facility] | | | | | | [facility] | | | Neutrophils | | | MEDICAL | | | | | | CENTER - | | | | | | LABORATORY | | + + + + + + | % | 27.0 | 20.0 - 40.0 % | [facility] | | | Lymphocytes | | | [facility] | | | | | | [facility] | | | | | | CENTER - | | | | | | LABORATORY | | + + + + + + | % Monocytes | 11.0 (H) | 1.0 - 6.0 % | [facility] | | | | | | [facility] | | | | | | [facility] | | | | | | C[facility] - | | | | | | LABORATORY | | + + + + + + | % | 1.0 | 1.0 - 5.0 % | [facility] | | | Eosinophils | | | [facility] | | | | | | [facility] | | | | | | CENTER - | | | | | | LABORATORY | | + + + + + + | % Bands | 16.0 (H) | 0.0 - 5.0 % | [facility] | | | | | | [facility] | | | | | | [facility] | | | | | | C[facility] - | | | | | | LABORATORY | | + + + + + + | Absolute | 0.99 (L) | 1.80 - 7.70 | [facility] | | | Segmented | | K/uL | [facility] | | | Neutrophils | | | MEDICAL | | | | | | CENTER - | | | | | | LABORATORY | | + + + + + + | Absolute | 0.59 (L) | 1.00 - 3.40 | [facility] | | | Lymphocytes | | K/uL | [facility] | | | | | | [facility] | | | | | | CENTER - | | | | | | LABORATORY | | + + + + + + | Absolute | 0.24 | 0.00 - 0.80 | [facility] | | | Monocytes | | K/uL | [facility] | | | | | | [facility] | | | | | | CENTER - | | | | | | LABORATORY | | + + + + + + | Absolute | 0.02 | 0.00 - 0.50 | [facility] | | | Eosinophils | | K/uL | [facility] | | | | | | [facility] | | | | | | CENTER - | | | | | | LABORATORY | | + + + + + + | Absolute | 0.35 | 0.00 - 1.50 | [facility] | | | Bands | | K/uL | [facility] | | | | | | [facility]ICAL | | | | | | CENTER - | | | | | | LABORATORY | | + + + + + + | Total | 100 | | [facility] | | | Counted | | | [facility] | | | | | | [facility] | | | | | | CENTER - | | | | | | LABORATORY | | + + + + + + | WBC | Normal | | [facility] | | | Morphology | | | [facility] | | | | | | [facility] | | | | | | CENTER - | | | | | | LABORATORY | | + + + + + + | Platelet | Decreased (A) | Adequate | [facility] | | | Estimate | | | [facility] | | | | | | [facility] | | | | | | CENTER - | | | | | | LABORATORY | | + + + + + + | Giant | Present (A) | Not Present | [facility] | | | Platelets | | | [facility] | | | | | | [facility]ICAL | | | | | | CENTER - | | | | | | LABORATORY | | + + + + + + | Hypochromas | Slight (A) | (none) | [facility] | | | ia | | | [facility] | | [...] [address] | [place] | [phone] | | [facility] | | [address] | | | - LABORATORY | | | | + + + + + Slide Review, Peripheral Smear (08/24/2016 1:20 PM PST) + + + + + + | Component | Value | Ref Range | Performed | Pathologist | | | | | At | Signature | + + + + + + | WBC | Normal | | [facility] | | | Morphology | | | [facility] | | | | | | [facility] | | | | | | CENTER - | | | | | | LABORATORY | | + + + + + + | Platelet | Decreased (A) | Adequate | [facility] | | | Estimate | | | [facility] | | | | | | [facility] | | | | | | CENTER - | | | | | | LABORATORY | | + + + + + + | Giant | Present (A) | Not Present | [facility] | | | Platelets | | | [facility] | | | | | | MEDICAL | | | | | | CENTER - | | | | | | LABORATORY | | + + + + + + | Hypochromas | Slight (A) | (none) | [facility] | | | ia | | | [facility] | | | | | | MEDICAL | | | | | | CENTER - | | | | | | LABORATORY | | + + + + + + + + | Specimen | + + | Blood | + + + + + | Narrative | Performed At | + + + | >10% bands seen on smear review;manual diff needed | [facility] | | | [facility] | | | [facility] | | | - LABORATORY | + + + + + + + + | Performing | Address | City/State/Zipcode | Phone Number | | Organization | | | | + + + + + | [facility] | [address] | [place] | [phone] | | [facility] | | [address] | | | - LABORATORY | | | | + + + + + CBC with Differential (08/24/2016 1:20 PM PST) + + + + + + | Component | Value | Ref Range | Performed | Pathologist | | | | | At | Signature | + + + + + + | WBC | 2.2 (LL)Comment: Cancer | 4.0 - 11.0 K/uL | [facility] | | | | center | | [facility] | | | | patient;consistant with | | MEDICAL | | | | previous | | CENTER - | | | | | | LABORATORY | | + + + + + + | RBC | 3.48 (L) | 4.30 - 5.70 | [facility] | | | | | M/uL | [facility] | | | | | | MEDICAL | | | | | | CENTER - | | | | | | LABORATORY | | + + + + + + | Hemoglobin | 10.2 (L) | 13.5 - 18.0 | [facility] | | | | | g/dL | [facility] | | | | | | MEDICAL | | | | | | CENTER - | | | | | | LABORATORY | | + + + + + + | Hematocrit | 30.2 (L) | 40.0 - 51.0 % | [facility] | | | | | | [facility] | | | | | | MEDICAL | | | | | | CENTER - | | | | | | LABORATORY | | + + + + + + | MCV | 86.8 | 83.0 - 101.0 fL | [facility] | | | | | | [facility] | | | | | | MEDICAL | | | | | | CENTER - | | | | | | LABORATORY | | + + + + + + | MCH | 29.4 | 28.0 - 35.0 pg | [facility] | | | | | | [facility] | | | | | | MEDICAL | | | | | | CENTER - | | | | | | LABORATORY | | + + + + + + | MCHC | 33.9 | 32.0 - 36.0 | [facility] | | | | | g/dL | [facility] | | | | | | MEDICAL | | | | | | CENTER - | | | | | | LABORATORY | | + + + + + + | RDW-CV | 19.4 (H) | <15.0 % | [facility] | | | | | | [facility] | | | | | | MEDICAL | | | | | | CENTER - | | | | | | LABORATORY | | + + + + + + | Platelet | 100 (L) | 140 - 440 K/uL | [facility] | | | Count | | | [facility] | | | | | | MEDICAL | | | | | | CENTER - | | | | | | LABORATORY | | + + + + + + | MPV | 8.9 | fL | [facility] | | | | | | [facility] | | | | | | MEDICAL | | | | | | CENTER - | | | | | | LABORATORY | | + + + + + + | % | 59.5 | 45.0 - 82.0 % | [facility] | | | Neutrophils | | | [facility] | | | | | | MEDICAL | | | | | | CENTER - | | | | | | LABORATORY | | + + + + + + | % | 27.9 | 20.0 - 45.0 % | [facility] | | | Lymphocytes | | | [facility] | | | | | | MEDICAL | | | | | | CENTER - | | | | | | LABORATORY | | + + + + + + | % Monocytes | 10.8 | 4.0 - 12.0 % | [facility] [...] + + + + | Absolute | 1.30 (L) | 1.80 - 8.50 | [facility] [...] | 0.00 | 0.00 - 0.10 | [facility] | | | Basophils | | K/uL [...] [address] | [place] | [phone] | | [facility] | | [address] | | | - LABORATORY | | | | + + + + + Beta 2 Microglobulin (08/24/2016 1:20 PM PST) + + + + + + | Component | Value | Ref Range | Performed | Pathologist | | | | | At | Signature | + + + + + + | BETA 2 | 1811.0 (H)Comment: | 1010 - 1730 | [facility] | | | MICROGLOBUL | Testing Performed: [facility], | ug/L | [facility] | | | [place] | [address], | | | | | | [place] [address] | | | | + + + + + + + + | Specimen | + + | Blood specimen | | (specimen) | + + + + + + + | Performing | Address | City/State/Zipcode | Phone Number | | Organization | | | | + + + + + | [facility] | [address] | [place] [address] | [phone] | + + + + + Uric Acid (08/24/2016 1:20 PM PST) + +-------+ + + + | Component | Value | Ref Range | Performed | Pathologist | | | | | At | Signature | + +-------+ + + + | Uric Acid | 4.8 | 2.6 - 7.2 mg/dL | [facility] | [address] | [place], [place] | [phone] | | [facility] | | [address] | | | - LABORATORY | | | | + + + + + Comprehensive Metabolic Panel (08/24/2016 1:20 PM PST) + + + + + [...] + + + + | Cl | 104 | 98 - 109 mmol/L | [facility] [...] + + + + | Glucose | 120 (H) | 70 - 109 mg/dL | [facility] | | | | | | [facility] | | | | | [facility]ICAL | | | | | | CENTER - | | | | | | LABORATORY | | + + + + + + | BUN | 11 | 7 - 18 mg/dL | [facility] | | | | | | [facility] | | | | | | MEDICAL | | | | | | CENTER - | | | | | | LABORATORY | | + + + + + + | Creatinine | 0.96 | 0.60 - 1.30 | [facility] | [...] | mL/min/1.73m2 | [facility] | | | [place] | RATE,ESTIMATED | | MEDICAL | | | | mL/min/1.36e0Atgx than | | CENTER - | | [...] 3.5 | 3.2 - 5.0 g/dL | [facility] [...] + + + + | Total | 5.6 (L) | 6.0 - 7.8 g/dL | [facility] | | | Protein | | | [facility] | | | | | | MEDICAL | | | | | | CENTER - | | | | | | LABORATORY | | + + + + + + | AST | 19Comment: This is an | 10 - 42 [...] + + + + | ALT | 30Comment: This is an | 6 - 45 [...] + + + + | Alkaline | 59Comment: This is an | 40 - 110 [...] + + + + | Albumin/Pooja | 1.7 | 0.8 - 2.0 | [facility] | | | bulin Ratio | | | [facility] | | | | | | MEDICAL | | | | | | CENTER - | | | | | | LABORATORY | | + + + + + + | BUN/Creatin | 11.5 | | [facility] | | | ine [...] + | [facility] | [address] | [place], [place] | [phone] | | [facility] | | [address] | | | - LABORATORY | | | | + + + + + Lactate Dehydrogenase (08/24/2016 1:20 PM PST) + +-------+ + + + | Component | Value | Ref Range | Performed | Pathologist | | | | | At | Signature | + +-------+ + + + | LDH TOTAL | 178 | 91 - 180 U/L | [facility] [...] | + + + + + | [facility] | [address] | [place] | [phone] | | [facility] | | [address] | | | - LABORATORY | | [...]
--- OUTSIDE RECORDS SUMMARY | ~2020-01-25 | XMS | Encounter Summary ---
Demographics + + + | Address | [address] | | | [place] [address] | + + + | Home Phone | | + + + | Preferred Language | Unknown | + + + | Marital Status | | + + + | Holiness Affiliation | 1013 | + + + | Race | Unknown | + + + | Ethnic Group | Unknown | + + + Author + + + | Author | [facility] | | | and [place] | + + + | Organization | [facility] | | [...] [place] | | | | | [address] | | + + + + + Care Team Providers + +------+ + | Care Pcat Instructor Name | Role | Phone | + [...] | Radiology | Diagnoses | | [address] | | | | | Lymphedema | Mohamud, | [address] [place] | | | | | of left | Gerber Benson, | [place], | | | | | lower | MD [address] | [place] [address] | | | | | extremity | [address] | Phone: | | | | | Procedures | [place], | [phone] | | | | | CT Abdomen | [place] [address] | Fax: | | | | | Pelvis w | Phone: | [phone] | | | | | Contrast | [phone] | | | | | | | Fax: | | | | | | | [phone] | | +--------+--------+ + + + + Reason for Visit Diagnostic/Screening (Routine) +--------+--------+ + + + + | Status | Reason | Specialty | Diagnoses / | Referred By | Referred To | | | | | Procedures | Contact | Contact | +--------+--------+ + + + + | Closed | | Radiology | Diagnoses | | [address] | | | | | Lymphedema | Mohamud, | [place] | | | | | of left | Gerber Benson, | [place], | | | | | lower | MD [address] | [place] [address] | | | | | extremity | [address] | Phone: | | | | | Procedures | [place], | [phone] | | | | | CT Abdomen | [place] [address] | Fax: | | | | | Pelvis w | Phone: | [phone] | | | | | Contrast | [phone] | | | | | | | Fax: | | | | | | | [phone] | | +--------+--------+ + + + + Encounter Details +--------+ + + + + | Date | Type | Department | Care Team | Description | +--------+ + + + + | 04/18/ | Hospital | [facility] | Mohamud, | Lymphedema of left | | 2017 | Encounter | [facility] [address] | Gebrer Benson MD [address] | lower extremity | | | | [place], | [address] [place] | | | | | [place] [address] | [place] [address] | | | | | [phone] | [phone] | | | | | | | [...] [place] | | | | | | [address] | | | | | | | | +--------+---------+ + + + documented as of this encounter Procedures + +--------+ + + + | Procedure Name | Priori | Date/Time | Associated Diagnosis | Comments | | | ty | | | | + +--------+ + + + | CT ABDOMEN PELVIS W | Routin | 04/18/2017 | Lymphedema of left | Results for this | | CONTRAST | e | 12:33 PM | lower extremity | procedure are in the | | | | PDT | | results section. | + +--------+ + + + documented in this encounter Results CT Abdomen Pelvis w Contrast (04/18/2017 12:33 PM PDT) + + | Specimen | + + | | + + + + + | Narrative | Performed At | + + + | TECHNIQUE: After administration of 95 mL Omnipaque 350 | [facility] | | intravenously and oral contrast, axial CT imaging was obtained | | | through the abdomen and pelvis with coronal and sagittal reformats. | | | CLINICAL INFORMATION: Reevaluate left iliat lymph node seen on | | | December 01 COMPARISON: 12/01/2016. FINDINGS: LUNGS: Bases | | | are clear. Coronary artery calcifications are noted. BONES: No | | | acute osseous abnormality. No osteoblastic or osteolytic lesion. | | | ABDOMEN/PELVIS: Abdominal wall: Left inguinal region postoperative | | | changes. Liver: Normal. Gallbladder: Cholecystectomy changes. | | | Pancreas: Normal. Spleen: Normal. Adrenals: Normal. Kidneys: | | | Normal. Ureters: Normal Urinary Bladder: Normal. Reproductive | | | organs: Dystrophic calcifications of the normal sized prostate. | | | Bowel: Multiple small left colonic diverticula without pericolonic | | | inflammation. Normal appendix. No evidence of bowel obstruction. | | | Normal caliber of the bowel. Peritoneum: No ascites or free air. No | | | lymphadenopathy. Vessels and lymphatics: Interval decreased size of | | | the left iliac chain lymph node, currently measuring 2.1 x 1.9 cm, | | | previously 2.9 x 2.2 cm. No other lymph node enlargement. Normal | | | caliber of the abdominal aorta with mild vascular calcifications. | | | IMPRESSION - Interval decreased size of the left iliac chain | | | lymph node when compared with CT dated 12/01/2016. Incidental | | | findings as above. Dictated and Signed by: Philip Rodriguez MD | | | Electronically signed: 04/18/2017 2:34 PM | | + + + + + | Procedure Note | + + | Dario, Rad Results In - 04/18/2017 2:37 PM PDT | | TECHNIQUE: After administration of 95 mL Omnipaque 350 intravenously and oral | | contrast, axial CT imaging was obtained through the abdomen and pelvis with | | coronal and sagittal reformats. | | | | CLINICAL INFORMATION: Reevaluate left iliat lymph node seen on December 01 | | | | COMPARISON: 12/01/2016. | | | | FINDINGS: | | | | LUNGS: Bases are clear. Coronary artery calcifications are noted. | | | | BONES: No acute osseous abnormality. No osteoblastic or osteolytic lesion. | | | | ABDOMEN/PELVIS: | | Abdominal wall: Left inguinal region postoperative changes. | | Liver: Normal. | | Gallbladder: Cholecystectomy changes. | | Pancreas: Normal. | | Spleen: Normal. | | Adrenals: Normal. | | Kidneys: Normal. | | Ureters: Normal | | Urinary Bladder: Normal. | | Reproductive organs: Dystrophic calcifications of the normal sized prostate. | | Bowel: Multiple small left colonic diverticula without pericolonic inflammation. | | Normal appendix. No evidence of bowel obstruction. Normal caliber of the bowel. | | Peritoneum: No ascites or free air. No lymphadenopathy. | | Vessels and lymphatics: Interval decreased size of the left iliac chain lymph | | node, currently measuring 2.1 x 1.9 cm, previously 2.9 x 2.2 cm. No other lymph | | node enlargement. Normal caliber of the abdominal aorta with mild vascular | | calcifications. | | | | | | IMPRESSION - | | | | Interval decreased size of the left iliac chain lymph node when compared with CT | | dated 12/01/2016. | | | | Incidental findings as above. | | | | Dictated and Signed by: Philip Rodriguez MD | | Electronically signed: 04/18/2017 2:34 PM | + + + +---------+ + [...] | | | + +--------+ +--------+------+------+ | iohexol (OMNIPAQUE 350) 350 | Given | 04/18/20 | 95 mLs | | | | mg/mL injection 95 mL 95 mL, | | 17 12:30 | | | | | Intravenous, ONCE PRN, Other, for | | PM PDT | | | | | imaging CT study, Starting Wed | | | | | | | 04/18/17 at 1220, For 1 dose, | | | | | | | Radiology | | | | | | + +--------+ +--------+------+------+ +---+---+ | | | +---+---+ documented in this encounter"
--- OUTSIDE RECORDS SUMMARY | ~2020-01-25 | XMS | Encounter Summary ---
Demographics + + + | Address | [address] | | | [place] [address] | + + + | Home Phone | | + + + | Preferred Language | Unknown | + + + | Marital Status | | + + + | Christianity Affiliation | 1013 | + + + | Race | Unknown | + + + | Ethnic Group | Unknown | + + + Author + + + | Author | [facility] | | | and [place] | + + + | Organization | [facility] | | | [...] [place] | | | | | [address] | | + + + + + Care Team Providers + +------+ + | Care Research Test Engine Operator Name | Role | Phone | [...] large b-cell | Gerber Benson, | [address] | | | | | lymphoma, | MD [address] | [place], | | | | | intra-abdomi | [address] | [place] [address] | | | | | nal lymph | [place], | Phone: | | | | | nodes (HCC) | [place] [address] | [phone] | | | | | Procedures | Phone: | Fax: | | | | | [place] | [phone] | [phone] | | | | | INJECTION, | Fax: | | | | | | FAMOTIDINE, | [phone] | | | | | | 20 MG [place] | | | | | | | RITUXIMAB | | | | | | | INJECTION, | | | | | | | 100 MG [place] | | | | | | | LORAZEPAM | | | | | | | INJECTION, 2 | | | | | | | MG [place] | | | | | | | MEPERIDINE | | | | | | | HYDROCHL | | | | | | | /100 MG IL | | | | | | | DIPHENHYDRAM | | | | | | | INE HCL | | | | | | | INJECTIO, 50 | | | | | | | MG [place] | | | | | | | METHYLPREDNI | | | | | | | SOLONE | | | | | | | INJECTION, | | | | | | | 125 MG IL | | | | | | | DEXAMETHASON | | | | | | | E SODIUM | | | | | | | PHOS, 1 MG | | | | | | | IL NORMAL | | | | | | | SALINE | | | | | | | SOLUTION | | | | | | | INFUS, 500 | | | | | | | ML IL | | | | | | | NORMAL | | | | | | | SALINE | | | | | | | SOLUTION | | | | | | | INFUS, 250 | | | | | | | ML IL | | | | | | | STERILE | | | | | | | WATER/SALINE | | | | | | | , 10 ML IL | | | | | | | CHEMOTHER, | | | | | | | IV PUSH,EA | | | | | | | ADD DRUG IL | | | | | | | CHEMOTHER, | | | | | | | IV INFUSION, | | | | | | | 1 HR IL | | | | | | | CHEMOTHER, | | | | | | | IV INFUSION, | | | | | | | EA HR IL | | | | | | | CHEMOTHER,NO | | | | | | | N-HORMONE | | | | | | | ANTI-NEOPL, | | | | | | | SUB-Q/IM IL | | | | | | | [...] [place] | intra-abdominal | | | | [address] [place], | [place] [address] | lymph nodes (HCC); | | | | [place] [address] | [phone] | Lymphedema of left | | | | [phone] | | lower extremity | +--------+ + [...] [place] | | | | | | [address] | | | | | | | [...] [address] | [place] | [phone] | | [facility] | | [address] | | | - LABORATORY | | [...] mL/min/1.73m2 | [facility] | | | [facility] | RATE,ESTIMATED | | MEDICAL | | | | mL/min/[id number] than | | CENTER - | | [...] + | [facility] | [address] | [place] | [phone] | | [facility] | | [address] | | | - LABORATORY | | [...] [address] | [place] | [phone] | | [facility] | | [address] | | | - LABORATORY | | [...]
--- OUTSIDE RECORDS SUMMARY | ~2020-01-25 | XMS | Encounter Summary ---
Demographics + + + | Address | [address] | | | [place] [address] | + + + | Home Phone | | + + + | Preferred Language | Unknown | + + + | Marital Status | | + + + | Anglican Affiliation | 1013 | + + + | Race | Unknown | + + + | Ethnic Group | Unknown | + + + Author + + + | Author | [facility] | | | and [place] | + + + | Organization | [facility] | | | and [...] [place] | | | | | [address] | | + + + + + Care Team Providers + +------+ + | Care Notch Machine Operator Name | Role | Phone | + +------+ + | Kelsey Quintanilla MD | PCP | | + +------+ + Encounter Details +--------+---------+ + + + | Date | Type | Department | Care Team | Description | +--------+---------+ + + + | 10/22/ | Office | [facility] | Michael Corbin AUD | BPPV (benign | | 2019 | Visit | AUDIOLOGY [address] | [address] | paroxysmal | | | | [address] | [address] [place], | positional vertigo), | | | | [place], [place] | [place] [address] | unspecified | | | | [address] | [phone] | laterality (Primary | | | | [phone] | | Dx) | +--------+---------+ + + + Social History [...] as of this encounter Progress Notes Michael Corbin AUD - 10/22/2019 11:45 AM Dion Galindo was seen for a BPPV follow-up. He reported he has been feeling 95% better since his last visit. He indicated lying on his right side has occasionally triggered a weird feeling without vertigo. He has not performed any home exercises for vertigo. Alina-Hallpike testing was negative for BPPV bilaterally. There is no evidence of BPPV today. It appears his symptoms have resolved. Rios emanuel foll ow-up as needed for vertigo. documented in this encounter Plan of Treatment +--------+---------+ + + + | Date | Type | Specialty | Care Team | Description | +--------+---------+ + + + | 05/19/ | Office | Cardiology | Karen Bansal, | | | 2019 | Visit | | MD Patricia JOHNSON | | | | | | [facility] [place] | | | | | | [address] | | | | | | | | +--------+---------+ + + + documented as of this encounter Visit Diagnoses + + | Diagnosis | + + | BPPV (benign paroxysmal positional vertigo), unspecified laterality - Primary | + + documented in this encounter"
--- OUTSIDE RECORDS SUMMARY | ~2020-01-25 | XMS | Encounter Summary ---
Demographics + + + | Address | [address] | | | [place] [address] | + + + | Home Phone | | + + + | Preferred Language | Unknown | + + + | Marital Status | | + + + | Latter-Day Affiliation | 1013 | + + + | Race | Unknown | + + + | Ethnic Group | Unknown | + + + Author + + + | Author | [facility] | | | and [place] | + + + | Organization | [facility] | | [...] [place] | | | | | [address] | | + + + + + Care Team Providers + +------+ + | Care Can Striper Name | Role | Phone | + [...] | | | | large B-cell | [facility] | | | | | lymphoma of | MD Gerber | [address] | | | | | | [address] | | | | | intra-abdomi | [address] [place] | [place], [place] | | | | | nal lymph | [place], [place] | [address] | | | | | nodes (HCC) | [address] | Phone: | | | | | Procedures | Phone: | [phone] | | | | | CT Chest | [phone] | Fax: | | | | | Abdomen | Fax: | [phone] | | | | | Pelvis w | [phone] | | | | | | Contrast [...] + + | 07/15/ | Hospital | [facility] | Miguel Zuniga | Diffuse large B-cell | | 2018 | Encounter | [facility] | MD Gerber [address] | lymphoma of | | | | [facility] CL[facility] [address] | [address] [place] | intra-abdominal | | | | [address] [place] | [place] [address] | lymph nodes (HCC) | | | | [place] [address] | [phone] | (Primary Dx) | | | | [phone] | | | +--------+ + + + [...] erent from the original. Hem-Onc Progress Note [facility] Pt. Name/Age/: Gerber Galindo Jr. 68 y.o. 1950 Med. Record Number: [id number] Date of admission: 07/15/2018 Assessment and plan: 1. 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 Discussion concerning plans for follow-up surveillance monitoring to include recheck CT sca n. This can be scheduled at [facility] close to where patient lives for zac freedman. Gen. discussion today concerning imaging is a [...] patient was seen and exam ined. Gerber Mejiagaby Christianson. is a 68 y.o. male returns today [...] Electronically signed by: Miguel Zuniga, 07/15/2018 10:05 [facility] TIME SPENT 25 MIN. > 50% AT BEDSIDE, WITH FAMILY/PATIENT IN CARE AND BEAD INSPECTOR ON UNIT AND CO ORDINATION OF CARE Portions of this chart may have been created with [employer] voice recognition software. Occasi onal wrong-word or sound-alike substitutions may have occurred due to the inherent valencia itations of voice recognition software. Please read the chart carefully and recognize, using context, where these substitutions have occurred. Mckayla Reardon, BUSINESS MANAGEMENT SPECIALIST - 07/15/2018 9:36 AM PDTREVIEW O F [...] [place] | | | | | | [address] | | | | | | | [...]
--- OUTSIDE RECORDS SUMMARY | ~2020-01-25 | XMS | Encounter Summary ---
Demographics + + + | Address | [address] | | | [place] [address] | + + + | Home Phone | | + + + | Preferred Language | Unknown | + + + | Marital Status | | + + + | Worship Affiliation | 1013 | + + + [...] [place] | | | | | [address] | | + + + + + Care Team Providers + +------+ + | Care Food Editor Name | Role | Phone | + +------+ + | Earle Chacko MD | PCP | | + +------+ + Reason for Visit + + + | Reason | Comments | + + + | Initial Assessment | | + + + Evaluate & [...] | Required | | of left | Gerber Benson, | Therapy [address] | | | | | lower | MD [address] | | | | | extremity | [address] | [place], | | | | | | [place], | [place] [address] | | | | | | [place] [address] | Phone: | | | | | | Phone: | [phone] | | | | | | [phone] | Fax: | | | | | | Fax: | [phone] | | | | | | [phone] | | +--------+ + + + + + Encounter Details +--------+---------+ + + + | Date | Type | Department | Care Team | Description | +--------+---------+ + + + | 08/24/ | [facility] | Mohamud, | Lymphedema of left | | 2016 | Visit | MED CNT ONCOLOGY | Gerber Benson MD [address] | lower extremity | | | | THERAPY [address] | [address] [place] | (Primary Dx) | | | | [address] [place], | [place] [address] | | | | | [place] [address] | [phone] | | | | | [phone] | | | | | | | [...] encounter Progress Notes Olivia Portillo OT - 08/25/2016 9:16 AM PST Occupational Therapy Plan of Care Date: 08/25/2016 Patient Name: Gerber Galindo Date of : 1950 Encounter Diagnoses Code Name Primary? I89.0 Lymphedema of left lower extremity Yes Date of Onset: 2016 Start of Care Date: 08/24/2016 Requested # of Visits: 8 visits 1x/week for 8 weeks Certification From: 08/24/2016 Certification To: 10/24/2016 Clinical Impression: Patient presents to occupational therapy with edema in left lower extr emity. Objective exam reveals impairments with pain/tenderness, infection risk, decreased fu nctional mobility/activity level. These impairments and diagnosis are causing functional valencia itations with patient s ability to perform work, participate in daily activities around ho me, decreased tolerance for ambulation, and decreased knowledge/understanding of how to blair ge edema. Signs and symptoms are consistent with lymphedema r/t dx of lymphoma. Complexiti es contributing to frequency and duration of therapy: lives out of town; currently receiving chemotherapy treatment. Goals: OP OT Goals OP OT Goals: Goal 1, Goal 2, Goal 3 Goal 1: Independent home exercise program to facilitate independent symptom management. Goal 2: Improve LLIS outcome score to <=30% indicating improved ADL function and mobility. Goal 3: Patient will be fit with and educated in the use of an appropriate compression garm ents for mcfp management of edema. Treatment Plan/Interventions 35740 - OT [id number] - Therapeutic [id number] - Therapeutic [id number] - Manu al Therapy Patient and/or family has indicated understanding of treatment needs and actively participa ian in the creation of this plan for care. Electronically signed by: Olivia Portillo OT, 08/25/2016 9:16 Patient Name: Gerber Galindo/: 1950/ Evelyn Vela OT - 08/25/2016 8:39 AM PSTFormatting of this note might be different from the [facility] THERAPY OT OP [address] [facility] [address] Occupational Therapy Initial Assessment Date: 08/24/2016 Patient Information Patient Name: Gerber Galindo Date of : 1950 Age: 66 y.o. History Problem Lymphedema of Left Lower Extremity Mechanism of injury: no injury History of symptoms: Onset of LLE approx 3 mos ago Previous level of function and limitations: no limitations Work status:Off work Living situation: Lives with spouse who is very supportive Social History Social History Marital Status: Spouse Name: N/A Number of Children: N/A Years of Education: N/A Social History Main Topics Smoking status: Former Smoker -- 3.00 packs/day for 22 years Quit date: 07/18/1990 Smokeless tobacco: Never Used Alcohol Use: Yes Comment: Occasionally - Drug Use: No Sexual Activity: Partners: Female Other Topics Concern None Social History Narrative Encounter Diagnoses Code Name Primary? I89.0 Lymphedema of left lower extremity Yes Date of Onset: 2016 Referring Provider: Gerber Mallory MD No history on file. Past Medical History Diagnosis Date Chronic ischemic heart disease Depression Dyspnea Esophageal reflux Hyperglycemia Hyperlipemia Hypertension Benign neoplasm of colon Obesity Superficial injury of forearm Past Surgical History Procedure Laterality Date Cholecystectomy Knee surgery Bilateral Tonsillectomy and adenoidectomy Inguinal hernia repair incarcerated Stent 2013 RCA Family History Problem Relation Age of Onset Cancer Mother lymphoma and leukemia Cancer Father multiple myeloma Heart attack Father Developmental History Allergies Allergen Reactions Codeine "wires him up" Prior Treatment: None within the last sixty days; did have consult at 1st chemotherapy tx s ession with Oncology Rehab Navigator in cancer center. Patient and spouse wanted to see if chemo would help edema decrease and respond prior to initiating any other treatment. Rehab Precautions Office Visit from 08/24/2016 in [facility] THERAPY OT OP Rehab Precautions Precautions None Learning Style Patient's Optimum Learning Style: performance of task, reading Abuse Assessment Action taken by clinician: No concerns Fall Risk: Fall Risk 2 or more falls in the past year?: No Pain Assessment: Pain Rating During Assessment: 2 Location: LLE; lower claire; tenderness with palpation Percent of Time Pain is Experienced: 26-50% Pain/Comfort Presence Of Pain: complains of pain/discomfort EVALUATION: SUBJECTIVE: History of Presenting Problem: Gerber Galindo is a 66 y.o. right handed male w ho presents to therapy with an approx 3 month hx of progressive LLE edema. Patient had dopp ler to r/o DVT on 07/03/16 which was negative. 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 Patient unde rwent laparotomy with L ilial retroperitoneal lymph node biopsy on 07/05/16. He has started chemotherapy regimen 08/03/16. Swelling has continued. Does decrease slightly in the a.m. After sleep and elevation, but not consistently. Increases greatly with standing, walking, and any activity. Functional Limitations: increased LLE edema with any upright activity (i.e. Walking, standi ng) Precaution/special problems: currently receiving chemotherapy Patient s Goals: to decrease edema; be able to be more active again OBJECTIVE: ROM: Decreased ROM L ankle due to edema STRENGTH: WFL; c/o overall fatigue at times due chemotherapy PALPATION: Tenderness with palpation on L claire area SENSATION: intact Lymphedema: 2+ pitting edema L foot and lower leg, ending just distal to knee cap. Mild ed jayce, non-pitting throughout thigh, extending around L hip just under buttock with mild dimpl ing. No skin color or texture changes. No weeping or open areas. Patient was tested with the LLIS. With a score of 30 or 56% disability. Standardized Tests: Lymphedema Life Impact Scale: Physical Concerns 1. The amount of pain associated with my lymphedema is 1 2. The amount of limb heaviness associated with my lymphedema is 3 3. The amount of skin tightness associated with my lymphedema is: 3 4. The size of my swollen limb(s) seems 3 5. Lymphedema affects movement of my swollen limb 3 6. The strength in my swollen limb(s) is 1 Psychosocial Concerns 7. Lymphedema affects my body image (how I think I look) 2 8. Lymphedema affects my socialization with others 3 9. Lymphedema affects my intimate relations with spouse or partner (rate 0 if N/A) 0 10. Lymphedema "gets me down" (i.e., feeelings of depression, frustration, or anger due to the lymphedema) 3 11. I must relay on others for help due to my lymphedema 1 12. I know what to do to manage my lymphedema 4 Functional Concerns 13. Lymphedema affects my ability to perform self-care activities (i.e., eating, dressing, hygiene) 0 14. Lymphedema affects my ability to perform routine home or work-related activities 4 15. Lymphedema affects my performance of preferred leisure activities 4 16. Lymphedema affects the proper fit of clothing/shoes 3 17. Lymphedema affects my sleep 0 Infection Occurrence 18. In the part year, I have become ill with an infection in my swollen limb requiring oral antibiotics or hospitalization 0 Number of questions answered 17 LLIS Score 38 Percent Impairment 56% ASSESSMENT: Patient presents to occupational therapy with edema in left lower extremity. Objective exa m reveals impairments with pain/tenderness, infection risk, decreased functional mobility/ac tivity level. These impairments and diagnosis are causing functional limitations with patien t s ability to perform work, participate in daily activities around home, decreased tolera nce for ambulation, and decreased knowledge/understanding of how to manage edema. Signs and symptoms are consistent with lymphedema r/t dx of lymphoma. Complexities contributing to f requency and duration of therapy: lives out of town; currently receiving chemotherapy treatm ent. Rehabilitation potential: Patient demonstrates good potential to achieve established goals to address the documented impairments by participating in skilled occupational therapy serv ices. Goals: OP OT Goals OP OT Goals: Goal 1, Goal 2, Goal 3 Goal 1: Independent home exercise program to facilitate independent symptom management. Goal 2: Improve LLIS outcome score to <=30% indicating improved ADL function and mobility. Goal 3: Patient will be fit with and educated in the use of an appropriate compression garm ents for buttermaker continuous churn management of edema. Plan Date of Onset: 2016 Start of Care Date: 08/24/2016 Requested # of Visits: 8 visits 1x/week for 8 weeks Certification From: 08/24/2016 Certification To: 10/24/2016 Treatment Plan/Interventions 91442 - OT [id number] - Therapeutic [id number] - Therapeutic [id number] - Manu al Therapy Patient and/or family has indicated understanding of treatment needs and actively participa ian in the creation of this plan for care. Today's Treatment Start Time: 1400 Stop time: 1500 Duration: 60 minutes Timed Treatment Codes: 45 minutes # of OT Visits: 1 Objective: Education of rehab timeline, focus and expectations. Initial eval completed. Patient and spouse were instructed in HEP for MLM massage techniqu es for LE and pelvic region, including diaphragmatic breathing. Compression wrapping was ap plied to LLE, foot to knee, and KT applied to upper thigh for decreasing edema prior to annika uring for garment. Spouse was instructed in compression wrap and KT application. Discussed garment options for addressing pelvic compression - i.e recommended compression shorts/und erwear. Next Visit: Assess status of edema. If decreased appropriately with more skin mobility, an ticipate will be ready for compression garment measure. Cont with edema mgmt techs and eulalio ent/spouse education reinforcement. Electronically signed by: Olivia Portillo OT, 08/25/2016 9:15 Patient Name: Gerber Galindo/: 1950/ documented in this encounter Plan of Treatment +--------+---------+ + + + | Date | Type | Specialty | Care Team | Description | +--------+---------+ + + + | 05/19/ | Office | Cardiology | Karen Bansal, | | | 2019 | Visit | | MD Patricia JOHNSON | | | | | | [place] | | | | | | [id number] | | | | | | | [...]
--- OUTSIDE RECORDS SUMMARY | ~2020-01-25 | XMS | Encounter Summary ---
Demographics + + + | Address | [address] | | | [place] [address] | + + + | Home Phone | | + + + | Preferred Language | Unknown | + + + | Marital Status | | + + + | Restoration Affiliation | 1013 | + + + | Race | Unknown | + + + | Ethnic Group | Unknown | + + + Author + + + | Author | [facility] | | | and [place] | + + + | Organization | [facility] | | | and [...] [place] | | | | | [address] | | + + + + + Care Team Providers + +------+ + | Care Magazine Designer Name | Role | Phone | + +------+ + | Earle Chacko MD | PCP | | + +------+ + Reason for Visit + + + | Reason | Comments | + + + | Psychosocial Support | | + + + Encounter Details +--------+ + + + + | Date | Type | Department | Care Team | Description | +--------+ + + + + | 07/25/ | Documentati | [facility] | Parrish Traore, | Psychosocial Support | | 2015 | on | [facility] | ASSOCIATE PROFESSOR OF PHILOSOPHY | | | | | ONCOLOGY CLINIC [address] | | | | | | [address] | | | | | | [place] [address] | | | | | | [phone] | | | +--------+ + + + [...] documented as of this encounter Progress Notes Parrish Traore MSW - 07/26/2016 1:24 PM [facility] met with patient, Gerber cason (Rocky), to introduce self and administer NCCN Distress Screening Tool. Rios is being treated for lymphoma. He lives in [place] with his , Mara. 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 Rios is alert and oriented X4 and reports no history of depression and/or anxiety. There i s no evidence of thought disorder or other mental illness. Rios reports level of distress is 4 on a 10 point scale. He attributes level of distress to treatment decisions, worry, ch anges in urination, constipation, fatigue, feeling swollen, pain and sleep disturbances. Jose moore reports an adequate support system, good coping skills and strong nicolasa. This Proofer allowed for expression of feeling and provided supportive counseling and information regarding the emotional aspects of a cancer diagnosis and treatment. Encourage meka Nation to attend community support group and offered literature on patient s diagnosis. Provided an ACS booklet on Chemotherapy. This Proofer and Personal Lines Insurance Advisor are available to provide emotional support an d additional community resource information and referral as needed. Rios is aware of suppo rt services and how to access them. Will follow up at appointments and by phone as needed.E lectronically signed by LOR Muhammad at 07/26/2016 1:27 PM PDTdocumented in this en counter Plan of Treatment +--------+---------+ + + + | Date | Type | Specialty | Care Team | Description | +--------+---------+ + + + | 05/19/ | Office | Cardiology | Karen Bansal, | | | 2019 | Visit | | MD Patricia JOHNSON | | | | | | [place] | | | | | | [id number] | | | | | | | | +--------+---------+ + + + documented as of this encounter Visit Diagnoses Not on filedocumented in this encounter"
--- OUTSIDE RECORDS SUMMARY | ~2020-01-25 | XMS | Encounter Summary ---
Demographics + + + | Address | [address] | | | [place] [address] | + + + | Home Phone | | + + + | Preferred Language | Unknown | + + + | Marital Status | | + + + | Nondenominational Affiliation | 1013 | + + + | Race | Unknown | + + + | Ethnic Group | Unknown | + + + Author + + + | Author | [facility] | | | and [place] | + + + | Organization | [facility] | | | and [place] | + + + | Address | Unknown | + + + | Phone | Unavailable | + + + Support + + + + + | Name | Relationship | Address | Phone | + + + + + | Mara aGlindo | ECON | [address] | | | | | [place] | | | | | [address] | | + + + + + Care Team Providers + +------+ + | Care Review Assistant Name | Role | Phone | + [...] | Diffuse | Nikhil, | [address] | | | | | large B-cell | Joaquim C, | [place], | | | | | lymphoma of | MD [address] | [place] | | | | | | [address] | [address] | | | | | intra-abdomi | [place], | Phone: | | | | | nal lymph | [place] [address] | [phone] | | | | | nodes (HCC) | Phone: | Fax: | | | | | Procedures | [phone] | [phone] | | | | | ECHO | Fax: | | | | | | Complete | [phone] | | +--------+--------+ + + + + [...] | Diffuse | Nikhil, | [address] | | | | | large B-cell | Joaquim Benson, | [place], | | | | | lymphoma of | [address] | [place] | | | | | | [address] | [address] | | | | | intra-abdomi | [place], | Phone: | | | | | nal lymph | [place] [address] | [phone] | | | | | nodes (HCC) | Phone: | Fax: | | | | | Procedures | [phone] | [phone] | | | | | ECHO | Fax: | | | | | | Complete | [phone] | | +--------+--------+ + + + + Encounter Details +--------+ + + + + | Date | Type | Department | Care Team | Description | +--------+ + + + + | 10/26/ | Hospital | [facility] | Nikhil, | Diffuse large B-cell | | 2017 | Encounter | MED CTR ECHO [address] | Joaquim Benson MD [address] | lymphoma of | | | | [address] [place] | [address] [place] | intra-abdominal | | | | [place] [address] | [place] [address] | lymph nodes (HCC) | | | | [phone] | [phone] | | | | | | | [...] [place] | | | | | | [address] | | | | | | | [...] Room Number JR. Patient | | | [id number] Date of Study 10/26/2016 Number | | | Visit Number [id number] | | | Referring Physician NIKHIL MARCH Number | | | C Date of | | | 1950 Tape Librarian VALENTIN OLIVEROS, | | | | | | [facility] Age 66 year(s) | | | Interpreting YAMEL DYKES, | | | Collector Of Internal Revenue Gender | | | Male Nurse Procedure [...] Index: 31 mL/m^2 | | | EF Uhdjnfbqy53% Left Ventricle Diastolic Dimension: 5.5 cm | [...] | LA Vol/BSA Index: 31 mL/m^2 EF Fsdnnyhcb03% | | | | | | Left [...] + | Dario, Rad Results In - 10/27/2016 7:09 AM [facility] Transthoracic Echocardiography Report | | (TTE) Demographics Patient Name DANIEL Leon Room Number JR. | | Patient [id number] Date of Study 10/26/2016 Number Visit Number | | [id number] Referring Physician NIKHIL MARCH | | Number C Date of 1950 | | Tape Librarian VALENTIN OLIVEROS, | | [facility] Age 66 year(s) Interpreting YAMEL DYKES, | | Collector Of Internal Revenue Gender Male | | NurseProcedureType of Study [...] ml LA Vol/BSA Index: 31 mL/m^2 EF Ngxlwuoft25% Left | | Ventricle Diastolic Dimension: 5.5 [...] | LA Vol/BSA Index: 31 mL/m^2 EF Vtvyifkxq34% | | | | Left Ventricle | [...]
--- OUTSIDE RECORDS SUMMARY | ~2020-01-25 | XMS | Encounter Summary ---
Demographics + + + | Address | [address] | | | [place] [address] | + + + | Home Phone | | + + + | Preferred Language | Unknown | + + + | Marital Status | | + + + | Congregational Affiliation | 1013 | + + + [...] [place] | | | | | [address] | | + + + + + Care Team Providers + +------+ + | Care Cupola Worker Name | Role | Phone | [...] + + | 07/25/ | Documentati | [facility] | Parrish Traore, | Psychosocial Support | | 2015 | on | [facility] | HOSE SUSPENDER CUTTER | | | | | ONCOLOGY CLINIC [address] | | | | | | [address] | | | | | | [place] [address] | | | | | | [phone] | | | +--------+ + + + [...] Parrish Traore MSW - 07/26/2016 1:24 PM [facility] met with patient, Gerber cason (Rocky), to introduce self and administer NCCN Distress Screening Tool. Rios is being treated for lymphoma. He lives in [place] with his , Mara. 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 Rios is alert and oriented X4 and [...] good coping skills and strong nicolasa. This Swiss Machinist allowed for expression of feeling and provided supportive counseling and information regarding the emotional aspects of a cancer diagnosis and treatment. Encourage meka Nation to attend community support group and offered literature on patient s diagnosis. Provided an ACS booklet on Chemotherapy. This Swiss Machinist and Boom Conveyor Operator are available to provide emotional support an [...] | | | | | [place] | | | | | | [address] | | | | | | | | +--------+---------+ + + + documented as of this encounter Visit Diagnoses Not on filedocumented in this encounter"
--- OUTSIDE RECORDS SUMMARY | ~2020-01-25 | XMS | Encounter Summary ---
Demographics + + + | Address | [address] | | | [place] [address] | + + + | Home Phone | | + + + | Preferred Language | Unknown | + + + | Marital Status | | + + + | Scientologist Affiliation | 1013 | + + + | Race | Unknown | + + + | Ethnic Group | Unknown | + + + Author + + + | Author | [facility] | | | and [place] | + + + | Organization | [facility] | | | [...] [place] | | | | | [address] | | + + + + + Care Team Providers + +------+ + | Care Computer Systems Manager Name | Role | Phone | + +------+ + | Kelsey Quintanilla MD | PCP | | + +------+ + Encounter Details +--------+ + + + + | Date | Type | Department | Care Team | Description | +--------+ + + + + | 02/26/ | Orders Only | [place] [facility] | Dawson Lynn MD | | | 2013 | | CONVERSION | [address] | | | | | INTERFACES [address] | [place] [address] | | | | | [address] [place], [place] | [phone] | | | | | [address] | | | | | | [phone] | | | +--------+ + + + [...] | | | | | [place] | | | | | | [address] | | | | | | | | +--------+---------+ + + + documented as of this encounter Procedures + +--------+ + + + | Procedure Name | Priori | Date/Time | Associated Diagnosis | Comments | | | ty | | | | + +--------+ + + + | CV CARDIAC PROCEDURE | Routin | 02/26/2014 | | Results for this | | | e | 10:59 AM | | procedure are in the | | | | PDT | | results section. | + +--------+ + + + documented in this encounter Results CV CARDIAC PROCEDURE (02/26/2014 10:59 AM PDT) + + | Specimen | + + | | + + + + + | Narrative | Performed At | + + + | | | | PROCEDURES PERFORMED 1. Selective coronary angiography. 2. | | | Percutaneous transluminal coronary angioplasty of mid right coronary | | | artery with 2.5 x 12 mm Emerge balloon followed by stenting with 3.5 | | | x 16 mm PROMUS Plus drug-eluting stent. BRIEF HISTORY | | | Josie is a 63-year-old male with history of obesity and | | | hyperlipidemia who presented with acute coronary syndrome and mildly | | | positive troponin. He was advised to undergo coronary angiography for | | | possible coronary intervention. For details regarding his | | | presentation, kindly refer to my consultation note. TECHNIQUE The | | | patient was brought to the [facility] in the fasting state. He was | | | prepped and draped in the usual sterile fashion for radial artery | | | approach. The radial artery was easily accessed with modified | | | Seldinger approach and a 5-Cook Islander glide sheath was placed. A | | | 6-Cook Islander JL-4 catheter was advanced under fluoroscopic guidance over a | | | Wooly wire to the ascending aorta; however, significant challenge was | | | encountered because of very acute angulation of the innominate from | | | the aortic arch. Regardless, using a long exchange wire, I was able | | | to advance the JL-4 catheter, which was engaged with the ostium of the | | | left coronary artery and projection of the left coronary system was | | | done with the use of contrast injections. To minimize advancing | | | multiple catheters, and given the high suspicion of presence of | | | significant disease in the RCA, given the fact there was no | | | significant disease in the left coronary system, I exchanged the | | | catheter to a JR-4 guider catheter. The catheter, however, failed to | | | engage with the ostium of the right coronary artery but it did | | | approximate the ostium and projection of the vessel showed subtotal | | | occlusion of the mid vessel right after the acute marginal branch. An | | | attempt to further engage the RCA with JR4 guider catheter failed | | | and, therefore, an AL1 guider catheter was advanced and approximated | | | the RCA. After Angiomax was given, BMW guidewire was threaded into the | | | RCA distally and that gave me more support to the guide. PTCA was | | | done then with 2.5 x 12 mm Emerge balloon which was followed by | | | stenting with 3.5 x 16 mm Promus Plus drug-eluting stent. Projection | | | of the vessel showed excellent final result. Patient tolerated the | | | procedure well, and there were no immediate complications. | | | CONCLUSIONS 1. Two-vessel coronary artery disease primarily | | | affecting the right coronary artery with subtotal occlusion and | | | otherwise mild disease in left anterior descending artery. 2. Left | | | ventriculogram was not done. 3. Status post percutaneous | | | transluminal coronary angioplasty and stenting of mid right coronary | | | artery with 3.5 x 16 mm Promus Element drug-eluting stent. 4. Would | | | not recommend in the future to use radial artery approach, at least | | | from the right wrist, given the acute angulation between the | | | innominate artery and ascending aorta. A femoral approach and/or left | | | radial artery approach should be done. Read by DAWSON LYNN MD | | | 03/01/2014 09:19 A Electronically signed by Dawson Lynn MD on | | | 04/13/2014 8:58 AM | | + + + + + | Procedure Note | + + | Valeriy Bishop Conversion - 05/16/2019 10:13 AM PDT | | PROCEDURES | | PERFORMED1. Selective coronary angiography.2. Percutaneous transluminal coronary | | angioplasty of mid right coronary artery with 2.5 x 12 mm Emerge balloon followed by | | stenting with 3.5 x 16 mm PROMUS Plus drug-eluting stent. BRIEF HISTORYMr. Galindo is a | | 63-year-old male with history of obesity and hyperlipidemia who presented | | with acute coronary syndrome and mildly positive troponin. He was advised to undergo | | coronary angiography for possible coronary intervention. For details regarding his | | presentation, kindly refer to my consultation note. TECHNIQUEThe patient was brought to | | the [facility] in the fasting state. He was prepped and draped in the usual sterile | | fashion for radial artery approach. The radial artery was easily accessed with modified | | Seldinger approach and a 5-Cook Islander glide sheath was placed. A 6-Cook Islander JL-4 catheter was | | advanced under fluoroscopic guidance over a Wooly wire to the ascending aorta; however, | | significant challenge was encountered because of very acute angulation of the innominate | | from the aortic arch. Regardless, using a long exchange wire, I was able to advance the | | JL-4 catheter, which was engaged with the ostium of the left coronary artery and | | projection of the left coronary system was done with the use of contrast injections. To | | minimize advancing multiple catheters, and given the high suspicion of presence of | | significant disease in the RCA, given the fact there was no significant disease in the | | left coronary system, I exchanged the catheter to a JR-4 guider catheter. The catheter, | | however, failed to engage with the ostium of the right coronary artery but it did | | approximate the ostium and projection of the vessel showed subtotal occlusion of the mid | | vessel right after the acute marginal branch. An attempt to further engage the RCA with | | JR4 guider catheter failed and, therefore, an AL1 guider catheter was advanced and | | approximated the RCA. After Angiomax was given, BMW guidewire was threaded into the RCA | | distally and that gave me more support to the guide. PTCA was done then with 2.5 x 12 mm | | Emerge balloon which was followed by stenting with 3.5 x 16 mm Promus Plus drug-eluting | | stent. Projection of the vessel showed excellent final result. Patient tolerated the | | procedure well, and there were no immediate complications. CONCLUSIONS1. Two-vessel | | coronary artery disease primarily affecting the right coronary artery with subtotal | | occlusion and otherwise mild disease in left anterior descending artery.2. Left | | ventriculogram was not done.3. Status post percutaneous transluminal coronary | | angioplasty and stenting of mid right coronary artery with 3.5 x 16 mm Promus Element | | drug-eluting stent.4. Would not recommend in the future to use radial artery approach, | | at least from the right wrist, given the acute angulation between the innominate artery | | and ascending aorta. A femoral approach and/or left radial artery approach should be | | done. Read by DAWSON LYNN MD 03/01/2014 09:19 A | + + documented in this encounter Visit Diagnoses Not on filedocumented in this encounter"
--- OUTSIDE RECORDS SUMMARY | ~2020-01-25 | XMS | Encounter Summary ---
Demographics + + + | Address | [address] | | | [place] [address] | + + + | Home Phone | | + + + | Preferred Language | Unknown | + + + | Marital Status | | + + + | Jewish Affiliation | 1013 | + + + [...] [place] | | | | | [address] | | + + + + + Care Team Providers + +------+ + | Care Skein Bleacher Name | Role | Phone | + [...] | | Lymphedema | Mohamud, | [address] | | | | | of left | Gerber Benson, | [place], | | | | | lower | MD [address] | [place] [address] | | | | | extremity | [address] | Phone: | | | | | Procedures | [place], | [phone] | | | | | CT Abdomen | [place] [address] | Fax: | | | | | Pelvis w | Phone: | [phone] | | | | | Contrast | [phone] | | | | | | | Fax: | | | | | | | [phone] | | +--------+--------+ + + + + [...] | | Lymphedema | Mohamud, | [address] | | | | | of left | Gerber Benson, | [place], | | | | | lower | MD [address] | [place] [address] | | | | | extremity | [address] | Phone: | | | | | Procedures | [place], | [phone] | | | | | CT Abdomen | [place] [address] | Fax: | | | | | Pelvis w | Phone: | [phone] | | | | | Contrast | [phone] | | | | | | | Fax: | | | | | | | [phone] | | +--------+--------+ + + + + Encounter Details +--------+ + + + + | Date | Type | Department | Care Team | Description | +--------+ + + + + | 04/18/ | Hospital | [facility] | Mohamud, | Lymphedema of left | | 2017 | Encounter | [facility] [address] | Gerber Benson MD [address] | lower extremity | | | | [place], | [address] [place] | | | | | [place] [address] | [place] [address] | | | | | [phone] | [phone] | | | | | | | [...] [place] | | | | | | [address] | | | | | | | [...]
--- OUTSIDE RECORDS SUMMARY | ~2020-01-25 | XMS | Clinical Summary ---
Demographics + + + | Address | [address] | | | [place] [address] | + + + | Home Phone | | + + + | Preferred Language | Unknown | + + + | Marital Status | Unknown | + + + | Sabianist Affiliation | Unknown | + + + | Race | Unknown | + + + | Ethnic Group | Unknown | + + + Author + + + | Author | [facility] | + + + | Organization | [facility] | + + + | Address | Unknown | + + + | Phone | Unavailable | + + + Care Team Providers + +------+ + | Care Technical Expert Name | Role | Phone | + +------+ + PCP | Unavailable | + +------+ + Source Comments JOSE is fully live on both [facility] and [facility] Allergies Not on File Medications Not on file Active Problems Not on file Social History + +-------+ +--------+------+ | Tobacco [...] recent travel history available. | + + Last Filed Vital Signs Not on file Plan of Treatment + + + + + | Health Maintenance | Due Date | Last Done | Comments | + + + + + | Pneumococcal | | | | | vaccination (1 of 2 | 6 | | | | - PCV13) | | | | + + + + + | Influenza (Flu) | | | | | vaccination (#1) | 9 | | | + + + + + Results Not on filefrom Last 3 Months"
--- OUTSIDE RECORDS SUMMARY | ~2020-01-25 | XMS | Encounter Summary ---
Demographics + + + | Address | [address] | | | [place] [address] | + + + | Home Phone [...] [place] | | | | | [address] | | + + + + + Care Team Providers + +------+ + | Care Trim Mechanic Name | Role | Phone | [...] large b-cell | Gerber Benson, | [address] [place] | | | | | lymphoma, | MD [address] | [place], | | | | | intra-abdomi | [address] | [place] [address] | | | | | nal lymph | [place], | Phone: | | | | | nodes (HCC) | [place] [address] | [phone] | | | | | Procedures | Phone: | Fax: | | | | | [place] | [phone] | [phone] | | | | | RITUXIMAB | Fax: | | | | | | INJECTION, | [phone] | | | | | | 100 MG [place] | | | | | | | MEPERIDINE | | | | | | | HYDROCHL | | | | | | | /100 MG [place] | | | | | | | IV INFUSION, | | | | | | | HYDRATION, | | | | | | | 31-60 MIN | | | | | | | [place] IV | | | | | | | INFUSION, | | | | | | | HYDRATION, | | | | | | | EA ADD HOUR | | | | | | | [place] | | | | | | | ONDANSETRON | | | | | | | HCL | | | | | | | INJECTION, 1 | | | | | | | MG [place] | | | | | | | DEXAMETHASON | | | | | | | E SODIUM | | | | | | | PHOS, 1 MG | | | | | | | [place] | | | | | | | FOSAPREPITAN | | | | | | | T INJECTION, | | | | | | | 1 MG [place] | | | | | | | PREDNISONE | | | | | | | IR OR DR | | | | | | | ORAL 1MG [place] | | | | | | | | | | | | | | CYCLOPHOSPHA | | | | | | | MIDE 100 MG | | | | | | | INJ [place] | | | | | | | DOXORUBICIN | | | | | | | HCL | | | | | | | INJECTION, | | | | | | | 10 MG [place] | | | | | | | VINCRISTINE | | | | | | | SULFATE 1 MG | | | | | | | INJ [place] | | | | | | | DIPHENHYDRAM | | | | | | | INE HCL | | | | | | | INJECTIO, 50 | | | | | | | MG [place] | | | | | | | METHYLPREDNI | | | | | | | SOLONE | | | | | | | INJECTION, | | | | | | | 125 MG [place] | | | | | | | DEXAMETHASON | | | | | | | E SODIUM | | | | | | | PHOS, 1 MG | | | | | | | [place] | | | | | | | INJECTION, | | | | | | | PEGFILGRASTI | | | | | | | M 6MG [place] | | | | | | | NORMAL | | | | | | | SALINE | | | | | | | SOLUTION | | | | | | | INFUS, 500 | | | | | | | ML [place] | | | | | | | NORMAL | | | | | | | SALINE | | | | | | | SOLUTION | | | | | | | INFUS, 250 | | | | | | | ML [place] | | | | | | | STERILE | | | | | | | WATER/SALINE | | | | | | | , 10 ML [place] | | | | | | | CHEMOTHER, | | | | | | | IV PUSH,EA | | | | | | | ADD DRUG [place] | | | | | | | CHEMOTHER, | | | | | | | IV INFUSION, | | | | | | | 1 HR [place] | | | | | | | CHEMOTHER, | | | | | | | IV INFUSION, | | | | | | | EA HR [place] | | | | | | | CHEMOTHER,NO | | | | | | | N-HORMONE | | | | | | | ANTI-NEOPL, | | | | | | | SUB-Q/IM [place] | | | | | | | [...] | +--------+ + + + + | 10/17/ | [facility] | [facility] | Mohamud, | 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 Areli Shabazz RN iller, Patricia Mark RN - 10/17/2016 1:16 PM PSTRocky is complaining of heart burn and indigestion. Dr. Trudi evans had suggested Maalox. 1 dose was given. Electronically signed by Patricia Mercado RN at 1:16 PM PSTdocumented in this encounter Plan of Treatment +--------+---------+ + + + | Date | Type | Specialty | Care Team | Description | +--------+---------+ + + + | 05/19/ | Office | Cardiology | Karen Bansal, | | | 2019 | Visit | | MD [address] | | | | | | [place] | | | | | | [address] | | | | | | | | +--------+---------+ + + + documented as of this encounter Procedures + +--------+ + + + | Procedure Name | Priori | Date/Time | Associated Diagnosis | Comments | | | ty | | | | + +--------+ + + + | CBC WITH | STAT | 10/17/2016 | Diffuse large | Results for this | | DIFFERENTIAL | | 8:14 AM | B-cell lymphoma of | procedure are in the | | | | PST | intra-abdominal | results section. | | | | | lymph nodes (HCC) | | + +--------+ + + + | LACTATE | STAT | 10/17/2016 | Diffuse large | Results for this | | DEHYDROGENASE | | 8:14 AM | B-cell lymphoma of | procedure are in the | | | | PST | intra-abdominal | results section. | | | | | lymph nodes (HCC) | | + +--------+ + + + | COMPREHENSIVE | STAT | 10/17/2016 | Diffuse large | Results for this | | METABOLIC PANEL | | 8:14 AM | B-cell lymphoma of | procedure are in the | | | | PST | intra-abdominal | results section. | | | | | lymph nodes (HCC) | | + +--------+ + + + documented in this encounter Results CBC with Differential (10/17/2016 8:14 AM PST) + + + + + + | Component | Value | Ref Range | Performed | Pathologist | | | | | At | Signature | + + + + + + | WBC | 3.3 (L) | 4.0 - 11.0 K/uL | [facility] | | | | [facility] - | | | | | | LABORATORY | | + + + + + + | RBC | 3.57 (L) | 4.30 - 5.70 | [facility] [...] + + + + | Hematocrit | 31.6 (L) | 40.0 - 51.0 % | [facility] | | [facility] | [facility] | | | | | | [facility] - | | | | | | LABORATORY | | + + + + + + | MCV | 88.5 | 83.0 - 101.0 fL | [facility] | | | [facility] | [facility] | | | [facility] | [facility] | | | | | | [facility] - | | | | | | LABORATORY | | + + + + + + | MCH | 30.5 | 28.0 - 35.0 pg | [facility] [...] + + + + | RDW-CV | 20.0 (H) | <15.0 % | [facility] | | | [facility] | | | | [facility] | [facility] | | | | | | [facility] - | | | | | | LABORATORY | | + + + + + + | Platelet | 120 (L) | 140 - 440 K/uL | [...] + + + + | % | 71.4 | 45.0 - 82.0 % | [facility] | | | Neutrophils | | | [facility] | | | | | | [facility] | | | | | | [facility] - | | | | | | LABORATORY | | + + + + + + | % | 18.4 (L) | 20.0 - 45.0 % | [facility] | | | Lymphocytes | | | [facility] | | | | | | [facility] | | | | | | [facility] - | | | | | | LABORATORY | | + + + + + + | % Monocytes | 7.9 | 4.0 - 12.0 % | [facility] | | | | | [facility] | | | | | | [facility] | | | | | | [facility] - | | | | | | LABORATORY | | + + + + + + | % | 1.2 | 0.0 - 5.0 % | [facility] [...] + | [facility] | [address] | [place] | [phone] | | [facility] | | [address] | | | - LABORATORY | | | | + + + + + Comprehensive Metabolic Panel (10/17/2016 8:14 AM PST) + + + + + + | Component | Value | Ref Range | Performed | Pathologist | | | | | At | Signature | + + + + + + | Na | 141 | 136 - 149 | [facility] | [...] mL/min/1.73m2 | [facility] | | | [facility] | RATE,ESTIMATED | | MEDICAL | | | | mL/min/1.32f2Kepm than | | CENTER - | | [...] + + + + | Bilirubin | 0.4 | 0.1 - 1.5 mg/dL | [facility] [...] + + + + | AST | 23 | 10 - 42 U/L | [facility] [...] + + + + | BUN/Creatin | 16.8 | | [facility] | | | ine [...] + | [facility] | [address] | [place] | [phone] | | [facility] | | [address] | | | - LABORATORY | | | | + + + + + Lactate Dehydrogenase (10/17/2016 8:14 AM PST) + +-------+ + + + [...] ST. | [address] | [place], [place] | [phone] | | [facility] | | [address] | | | - LABORATORY | | [...] | acetaminophen (TYLENOL) tablet | Given | 10/17/19 | 650 mg | | | | 650 mg 650 mg, Oral, ONCE, Sun | | 17 9:22 | | | | | 10/17/16 at 0945, For 1 dose, Give | | AM PST | | | | | 30 minutes prior to riTUXimab., | | | | | | + +--------+ +--------+------+------+ +---+---+ | | | +---+---+ + +-------+ +--------+---+---+ | aluminum & magnesium | Given | 10/17/19 | 30 mLs | | | | hydroxide-simethicone (MAALOX | | 17 1:15 | | | | | PLUS REGULAR STRENGTH) 200-200-20 | | PM PST | | | | | mg/5 mL suspension 30 mL 30 mL, | | | | | | | Oral, ONCE, 10/17/16 at 1330, | | | | | | | For 1 dose, Shake well., | | | | | | + +-------+ +--------+---+---+ +---+---+ | | | +---+---+ + +---------+ + +-------+---+ | cyclophosphamide (CYTOXAN) | New Bag | 10/17/19 | 2,000 mg | 250 | | | 2,000 mg in sodium chloride 0.9% | | 17 2:13 | | mL/hr | | | 150 mL chemo infusion 2,000 mg | | [...] | | | | | | | 10/17/16 at 1430, For 1 dose, | | | | | | | Chemotherapy: Use appropriate | | | | | | | handling precautions., | | | | | | + +---------+ + +-------+---+ +---+---+ | | | +---+---+ + +-------+ +-------+---+---+ | diphenhydrAMINE (BENADRYL) | Given | 10/17/19 | 25 mg | | | | injection 25 mg 25 mg, | | 17 9:23 | | | | | Intravenous, ONCE, 10/17/16 at | | AM PST | | | | | 0945, For 1 dose | | | | | | + +-------+ +-------+---+---+ +---+---+ | | | +---+---+ + +---------+ +--------+-------+---+ | DOXOrubicin (ADRIAMYCIN) 133 mg | New Bag | 10/17/19 | 133 mg | 500 | | | in sodium chloride 0.9% 183.5 mL | | 17 1:37 | | mL/hr | | | chemo infusion 133 mg (50 mg/m2 | | PM PST | | | | | | | | | | | | 2.66 m2 Treatment plan recorded | | | | | | | BSA), Intravenous, Administer | | | | | | | over 30 Minutes, ONCE, Tue | | | | | | | 10/17/16 at 1400, For 1 dose, | | | | | | | Chemotherapy: Use appropriate | | | | | | | handling precautions. Vesicant. | | | | | | | Protect from light., | | | | | | + +---------+ +--------+-------+---+ +---+---+ | | | +---+---+ + +---------+ +--------+-------+---+ | fosaprepitant (EMEND) 150 mg in | New Bag | 10/17/19 | 150 mg | 450 | | | sodium chloride 0.9% 150 mL IVPB | | 17 9:51 | | mL/hr | | | 150 mg, Intravenous, Administer | | AM PST | | | | | over 20 Minutes, ONCE, Tue | | | | | | | 10/17/16 at 0945, For 1 dose, Do | | | | | | | not shake bag. Administer prior | | | | | | | to chemotherapy., | | | | | | + +---------+ +--------+-------+---+ +---+---+ | | | +---+---+ + +-------+ +-------+---+---+ | heparin 100 units/mL flush | Given | 10/17/19 | 500 | | | | injection 500 Units 500 Units (5 | | 17 3:18 | Units | | | | mL), Intracatheter, PRN, Line | | PM PST | | | | | Care, Starting 10/17/16 at | | | | | | | 0915 | | | | | | + +-------+ +-------+---+---+ +---+---+ | | | +---+---+ + +---------+ +---+-------+---+ | ondansetron (ZOFRAN) 8 mg, | New Bag | 10/17/19 | | 204 | | | dexamethasone (DECADRON) 4 mg in | | 17 9:31 | | mL/hr | | | sodium chloride 0.9% 50 mL IVPB | | AM PST | | | | | Intravenous, Administer over 16 | | | | | | | Minutes, ONCE, 10/17/16 at | | | | | | | 0945, For 1 dose | | | | | | + +---------+ +---+-------+---+ +---+---+ | | | +---+---+ + +---------+ + +---+---+ | riTUXimab (RITUXAN) 1,000 mg in | New Bag | 10/17/19 | 1,000 mg | | | | sodium chloride 0.9% 1,000 mL | | 17 10:16 | | | | | infusion 1,000 mg (rounded from | | AM PST | | | | | 997.5 mg = 375 mg/m2 | | | | | | | 2.66 m2 Treatment plan recorded | | | | | | | BSA), Intravenous, ONCE, Tue | | | | | | | 10/17/16 at 1000, For 1 dose, | | [...]
--- OUTSIDE RECORDS SUMMARY | ~2020-01-25 | XMS | Encounter Summary ---
Demographics + + + | Address | [address] | | | [place] [address] | + + + | Home Phone | | + + + | Preferred Language | Unknown | + + + | Marital Status | | + + + | Confucianism Affiliation | 1013 | + + + | Race | Unknown | + + + | Ethnic Group | Unknown | + + + Author + + + | Author | [facility] | | | and [place] | + + + | Organization | [facility] | | | [...] [place] | | | | | [address] | | + + + + + Care Team Providers + +------+ + | Care Brush Painter Name | Role | Phone | + [...] + + | 03/25/ | Hospital | [facility] | Mohamud, | Diffuse large B-cell | | 2018 | Encounter | [facility] | Joaquim Benson MD [address] | lymphoma of | | | | ONCOLOGY CLINIC [address] | [address] [place] | intra-abdominal | | | | [address] [place] | [place] [address] | lymph nodes (HCC) | | | | [place] [address] | [phone] | | | | | [phone] | | | +--------+ + + + [...] nt from the original. Hematology/Oncology Progress Note [place], [place] Pt. Name/Age/: Joaquim Sanchez Jr. 67 y.o. 1950 Med. Record Number: [id number] Date of admission: 03/25/2018 The patient's primary care provider is Kelsey Quintanilla MD. Identifying Statement: Joaquim Sanchez Jr. is a 67 y.o. male from [address] [address] with Mixed Diffuse Large B-Cell/Follicular Lymphoma in [...] lower extremity. CT abdomen/Pelvis with contrast 2016 ([facility]). Ex tensive periaortic lymphadenopathy (1.8 cm and 2.1 cm respectively), extensive adenopathy ex tending out along the left common iliac artery and encasing the left external iliac artery ( 4.4 cm) with compromise of the left external iliac vein. 2. Open laparotomy with LEFT ileal retroperitoneal lymph node biopsy ([facility], [facility]) June 242015. Specimen #[id number] ([facility]); Diffuse Large B-Cell lymph raciel, germinal center [...] September 04, 2016. 10. CT Abdomen/Pelvis at [facility] on September 12, 2016; Positive Response [...] (PRIMA protocol). 14. Repeat CT scan at [facility], [place], [place] on December 01, [address] [...] [address]. [address] [facility], 2017 demonstrated decreased [...] [address] scan at [facility] on November 21, 2017 demonstrated decreased left [...] 2006 , Vol. 47, No. 6, pp 1729-2743. In the first article, an observational study [...] observational study, by Marques bonilla al from [facility] th at [...] this chart may have been created with [employer] voice recognition software. Occasi onal wrong-word or [...] | | | | | | [facility] | | | | | | [address] | | | | | | | | +--------+---------+ + + + documented as of this encounter Visit Diagnoses + + | Diagnosis | + + | Diffuse large B-cell lymphoma of intra-abdominal lymph nodes (HCC) Other malignant | | lymphomas of intra-abdominal lymph nodes | + + documented in this encounter
--- OUTSIDE RECORDS SUMMARY | ~2020-01-25 | XMS | Encounter Summary ---
Demographics + + + | Address | [address] | | | [place] [address] | + + + | Home Phone | | + + + | Preferred Language | Unknown | + + + | Marital Status | | + + + | Religion Affiliation | 1013 | + + + [...] [place] | | | | | [address] | | + + + + + Care Team Providers + +------+ + | Care Private Investigator Surveillance Name | Role | Phone | + [...] Description | +--------+--------+ + + + | 02/12/ | Refill | [facility] | Mohamud, | Medication Refill | | 2017 | | MED [facility] | Gerber Benson MD [address] | | | | | ONCOLOGY CLINIC [address] | [address] [place] | | | | | [address] [place] | [place] [address] | | | | | [place] [address] | [phone] | | | | | [phone] | | | +--------+--------+ + + + [...] [place] | | | | | | [address] | | | | | | | | +--------+---------+ + + + documented as of this encounter Visit Diagnoses + + | Diagnosis | + + | 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
--- OUTSIDE RECORDS SUMMARY | ~2020-01-25 | XMS | Encounter Summary ---
Demographics + + + | Address | [address] | | | [place] [address] | + + + | Home Phone [...] [place] | | | | | [address] | | + + + + + Care Team Providers + +------+ + | Care Case Management Director Name | Role | Phone | [...] large b-cell | Gerber Benson, | [address] [place] | | | | | lymphoma, | MD [address] | [place], | | | | | intra-abdomi | [address] | [place] [address] | | | | | nal lymph | [place], | Phone: | | | | | nodes (HCC) | [place] [address] | [phone] | | | | | Procedures | Phone: | Fax: | | | | | MS | [phone] | [phone] | | | | | RITUXIMAB | Fax: | | | | | | INJECTION, | [phone] | | | | | | 100 MG MS | | | | | | | MEPERIDINE | | | | | | | HYDROCHL | | | | | | | /100 MG MS | | | | | | | IV INFUSION, | | | | | | | HYDRATION, | | | | | | | 31-60 MIN | | | | | | | MS IV | | | | | | | INFUSION, | | | | | | | HYDRATION, | | | | | | | EA ADD HOUR | | | | | | | MS | | | | | | | ONDANSETRON | | | | | | | HCL | | | | | | | INJECTION, 1 | | | | | | | MG MS | | | | | | | DEXAMETHASON | | | | | | | E SODIUM | | | | | | | PHOS, 1 MG | | | | | | | MS | | | | | | | FOSAPREPITAN | | | | | | | T INJECTION, | | | | | | | 1 MG MS | | | | | | | PREDNISONE | | | | | | | IR OR DR | | | | | | | ORAL 1MG MS | | | | | | | | | | | | | | CYCLOPHOSPHA | | | | | | | MIDE 100 MG | | | | | | | INJ MS | | | | | | | DOXORUBICIN | | | | | | | HCL | | | | | | | INJECTION, | | | | | | | 10 MG MS | | | | | | | VINCRISTINE | | | | | | | SULFATE 1 MG | | | | | | | INJ MS | | | | | | | DIPHENHYDRAM | | | | | | | INE HCL | | | | | | | INJECTIO, 50 | | | | | | | MG MS | | | | | | | METHYLPREDNI | | | | | | | SOLONE | | | | | | | INJECTION, | | | | | | | 125 MG MS | | | | | | | DEXAMETHASON | | | | | | | E SODIUM | | | | | | | PHOS, 1 MG | | | | | | | MS | | | | | | | INJECTION, | | | | | | | PEGFILGRASTI | | | | | | | M 6MG MS | | | | | | | NORMAL | | | | | | | SALINE | | | | | | | SOLUTION | | | | | | | INFUS, 500 | | | | | | | ML MS | | | | | | | NORMAL | | | | | | | SALINE | | | | | | | SOLUTION | | | | | | | INFUS, 250 | | | | | | | ML MS | | | | | | | STERILE | | | | | | | WATER/SALINE | | | | | | | , 10 ML MS | | | | | | | CHEMOTHER, | | | | | | | IV PUSH,EA | | | | | | | ADD DRUG MS | | | | | | | CHEMOTHER, | | | | | | | IV INFUSION, | | | | | | | 1 HR MS | | | | | | | CHEMOTHER, | | | | | | | IV INFUSION, | | | | | | | EA HR MS | | | | | | | CHEMOTHER,NO | | | | | | | N-HORMONE | | | | | | | ANTI-NEOPL, | | | | | | | SUB-Q/IM MS | | | | | | | [...] + + + + | 07/25/ | [facility] | [facility] | Mohamud, | Diffuse large B-cell | | 2016 | Encounter | MED CTR CHEMO | Gerber Benson MD [address] | lymphoma of | | | | INFUSION [address] | [address] [place] | intra-abdominal | | | | [place], | [place] [address] | lymph nodes (HCC) | | | | [place] [address] | [phone] | | | | | [phone] | | | +--------+ + + + [...] encounter Progress Notes Tonya Oneil RN - 07/25/2016 5:04 PM PDTDc/d home amb in stable condition with . Has return appts d ocumented in this encounter Plan of Treatment +--------+---------+ + + + | Date | Type | Specialty | Care Team | Description | +--------+---------+ + + + | 05/19/ | Office | Cardiology | Karen Bansal, | | | 2019 | Visit | | MD Patricia JOHNSON | | | | | | [place], [place] | | | | | | [address] | | | | | | | [...] | acetaminophen (TYLENOL) tablet | Given | 07/25/20 | 650 mg | | | | 650 mg 650 mg, Oral, ONCE, Sun | | 16 9:45 | | | | | 07/25/16 at 0945, For 1 dose, Give | | AM PDT | | | | | 30 minutes prior to riTUXimab., | | | | | | + +--------+ +--------+------+------+ +---+---+ | | | +---+---+ + +---------+ + +-------+---+ | cyclophosphamide (CYTOXAN) | New Bag | 07/25/20 | 2,000 mg | 250 | | | 2,000 mg in sodium chloride 0.9% | | 16 3:52 | | mL/hr | | | 250 mL chemo infusion 2,000 mg | | PM PDT | | | | | (rounded from 1,995 mg = 750 | | | | | | | mg/m2 | | | | | | | 2.66 m2 Treatment plan recorded | | | | | | | BSA), Intravenous, Administer | | | | | | | over 60 Minutes, ONCE, Tue | | | | | | | 07/25/16 at 1600, For 1 dose, | | | | | | | Chemotherapy: Use appropriate | | | | | | | handling precautions., | | | | | | + +---------+ + +-------+---+ +---+---+ | | | +---+---+ + +-------+ +-------+---+---+ | diphenhydrAMINE (BENADRYL) | Given | 07/25/20 | 25 mg | | | | injection 25 mg 25 mg, | | 16 9:48 | | | | | Intravenous, ONCE, 07/25/16 at | | AM PDT | | | | | 0945, For 1 dose | | | | | | + +-------+ +-------+---+---+ +---+---+ | | | +---+---+ + +---------+ +--------+-------+---+ | DOXOrubicin (ADRIAMYCIN) chemo | New Bag | 07/25/20 | 133 mg | 399 | | | injection 133 mg 133 mg (50 | | 16 10:44 | | mL/hr | | | mg/m2 | | AM PDT | | | | | 2.66 m2 Treatment plan recorded | | | | | | | BSA), Intravenous, Administer | | | | | | | over 10 Minutes, ONCE, Tue | | | | | | | 07/25/16 at 1030, For 1 dose, | | | | | | | Please draw dose up into two | | | | | | | syringes of 33.25 mL each to | | | | | | | equal total volume 66.5 mL (133 | | | | | | | mg) Chemotherapy: Use appropriate | | | | | | | handling precautions. Vesicant. | | | | | | | Protect from light., | | | | | | + +---------+ +--------+-------+---+ +---+---+ | | | +---+---+ + +---------+ +--------+-------+---+ | fosaprepitant (EMEND) 150 mg in | New Bag | 07/25/20 | 150 mg | 450 | | | sodium chloride 0.9% 150 mL IVPB | | 16 10:11 | | mL/hr | | | 150 mg, Intravenous, Administer | | AM PDT | | | | | over 20 Minutes, ONCE, Tue | | | | | | | 07/25/16 at 1000, For 1 dose, Do | | | | | | | not shake bag. Administer prior | | | | | | | to chemotherapy., | | | | | | + +---------+ +--------+-------+---+ +---+---+ | | | +---+---+ + +-------+ +--------+---+---+ | methylPREDNISolone sodium | Given | 07/25/20 | 125 mg | | | | succinate (solu-MEDROL) 62.5 | | 16 9:45 | | | | | mg/mL injection 125 mg 125 mg, | | AM PDT | | | | | Intravenous, ONCE, 07/25/16 at | | | | | | | 0945, For 1 dose, Mix with 2 mL | | | | | | | provided diluent to make 62.5 | | | | | | | mg/mL., | | | | | | + +-------+ +--------+---+---+ +---+---+ | | | +---+---+ + +---------+ +------+-------+---+ | ondansetron (ZOFRAN) 8 mg in | New Bag | 07/25/20 | 8 mg | 216 | | | sodium chloride 0.9% 50 mL IVPB | | 16 9:50 | | mL/hr | | | 8 mg, Intravenous, Administer | | AM PDT | | | | | over 15 Minutes, ONCE, Tue | | | | | | | 07/25/16 at 0945, For 1 dose | | | | | | + +---------+ +------+-------+---+ +---+---+ | | | +---+---+ + +---------+ + +---+---+ | riTUXimab (RITUXAN) 1,000 mg in | New Bag | 07/25/20 | 1,000 mg | | | | sodium chloride 0.9% 1,000 mL | | 16 11:18 | | | | | infusion 1,000 mg (rounded from | | AM PDT | | | | | 997.5 mg = 375 mg/m2 | | | | | | | 2.66 m2 Treatment plan recorded | | | | | | | BSA), Intravenous, ONCE, Tue | | | | | | | 07/25/16 at 1045, For 1 dose, | | [...] (ONCOVIN) 2 mg in | Given | 07/25/20 | 2 mg | 150 | | | sodium chloride 0.9% 25 mL chemo | | 16 11:07 | | mL/hr | | | infusion 2 mg, Intravenous, | | AM PDT | | | | | Administer over 10 Minutes, ONCE, | | | | | | | 07/25/16 at 1015, For 1 dose, | | | | | | | Chemotherapy: Use appropriate | | | | | | | handling precautions. Vesicant. | | | | | | | For IV use only. Fatal if given | | | | | | | by other routes., | | | | | | + +-------+ +------+-------+---+ +---+---+ | | | +---+---+ documented in this encounter"
--- OUTSIDE RECORDS SUMMARY | ~2020-01-25 | XMS | Encounter Summary ---
Demographics + + + | Address | [address] | | | [place] [address] | + + + | Home Phone | | + + + | Preferred Language | Unknown | + + + | Marital Status | | + + + | Jewish Affiliation | 1013 | + + + | Race | Unknown | + + + | Ethnic Group | Unknown | + + + Author + + + | Author | [facility] | | | and [place] | + + + | Organization | [facility] | | | and [...] [place] | | | | | [address] | | + + + + + Care Team Providers + +------+ + | Care Playroom Attendant Name | Role | Phone | + +------+ + | Earle Chacko MD | PCP | | + +------+ + Encounter Details +--------+ + + + + | Date | Type | Department | Care Team | Description | +--------+ + + + + | 08/14/ | Documentati | [facility] | Olivia Portillo | | | 2016 | on | MED CNT ONCOLOGY | A, OT | | | | | THERAPY [address] | | | | | | [place], | | | | | | [place] [address] | | | | | | [phone] | | | +--------+ + + + [...] as of this encounter Progress Notes Olivia Portillo, OT - 08/14[facility]2016 [facility] [address] [place] [address] Oncology Rehab Screening Date: 08/14/2016 Patient Information Patient Name: Gerber Galindo Date of : 1950 Age: 66 y.o. Patient was seen for oncology rehab screening due to new patient consult. Patient currently being treated for diffuse large B cell lymphoma and treatment regimen includes IV chemother apy. Patient sleeping during therapist visit, but able to talk with patient's family member who was present. Introduced self and advised them of role and availability of Oncology Stefan ab Navigator. Family reports no significant functional limitations at this time, however, p atkun does continue to have LLE edema. She reports it is inconsistent at times, and will d ecrease with rest and elevation. She states that she and patient thought "it would be jenniffer r by now with the chemotherapy". Discussed with her the option of compression garment to as sist with maintaining decreased edema, however do not want to cause pelvic edema due to decr eased functioning of pelvic lymph nodes at this time. Recommended to family that oncology r ehab f/u after 1-2 more infusion treatments to continue to allow for time for treatment resp onse to lymph nodes, then may need to pursue edema management at that time as body may need assist with "kick starting" lymphatic system to reduced LE edema. Family concurs - will mayra menendez follow up in cancer center during infusion. Will have follow up visit in cancer center. Electronically signed by: Olivia Portillo OT, 08/14/2016 11:05 Patient Name: Gerber Galindo/: 1950/ documented in thi s encounter Plan of Treatment +--------+---------+ + + + | Date | Type | Specialty | Care Team | Description | +--------+---------+ + + + | 05/19/ | Office | Cardiology | Karen Bansal, | | | 2019 | Visit | | MD Particia JOHNSON | | | | | | [place] | | | | | | [phone] | | | | | | | | +--------+---------+ + + + documented as of this encounter Visit Diagnoses Not on filedocumented in this encounter
--- OUTSIDE RECORDS SUMMARY | ~2020-01-25 | XMS | Encounter Summary ---
Demographics + + + | Address | [address] | | | [place] [address] | + + + | Home Phone | | + + + | Preferred Language | Unknown | + + + | Marital Status | | + + + | Scientologist Affiliation | 1013 | + + + | Race | Unknown | + + + | Ethnic Group | Unknown | + + + Author + + + | Author | [facility] | | | and [place] | + + + | Organization | [facility] | | | and [...] [place] | | | | | [address] | | + + + + + Care Team Providers + +------+ + | Care Film Crew Member Name | Role | Phone | + [...] large b-cell | Gerber Benson, | [address] | | | | | lymphoma, | MD [address] | [place], | | | | | intra-abdomi | [address] | [place] [address] | | | | | nal lymph | [place], | Phone: | | | | | nodes (HCC) | [place] [address] | [phone] | | | | | Procedures | Phone: | Fax: | | | | | AR | [phone] | [phone] | | | | | RITUXIMAB | Fax: | | | | | | INJECTION, | [phone] | | | | | | 100 MG AR | | | | | | | MEPERIDINE | | | | | | | HYDROCHL | | | | | | | /100 MG AR | | | | | | | IV INFUSION, | | | | | | | HYDRATION, | | | | | | | 31-60 MIN | | | | | | | AR IV | | | | | | | INFUSION, | | | | | | | HYDRATION, | | | | | | | EA ADD HOUR | | | | | | | AR | | | | | | | ONDANSETRON | | | | | | | HCL | | | | | | | INJECTION, 1 | | | | | | | MG AR | | | | | | | DEXAMETHASON | | | | | | | E SODIUM | | | | | | | PHOS, 1 MG | | | | | | | AR | | | | | | | FOSAPREPITAN | | | | | | | T INJECTION, | | | | | | | 1 MG AR | | | | | | | PREDNISONE | | | | | | | IR OR DR | | | | | | | ORAL 1MG AR | | | | | | | | | | | | | | CYCLOPHOSPHA | | | | | | | MIDE 100 MG | | | | | | | INJ AR | | | | | | | DOXORUBICIN | | | | | | | HCL | | | | | | | INJECTION, | | | | | | | 10 MG AR | | | | | | | VINCRISTINE | | | | | | | SULFATE 1 MG | | | | | | | INJ AR | | | | | | | DIPHENHYDRAM | | | | | | | INE HCL | | | | | | | INJECTIO, 50 | | | | | | | MG AR | | | | | | | METHYLPREDNI | | | | | | | SOLONE | | | | | | | INJECTION, | | | | | | | 125 MG AR | | | | | | | DEXAMETHASON | | | | | | | E SODIUM | | | | | | | PHOS, 1 MG | | | | | | | AR | | | | | | | INJECTION, | | | | | | | PEGFILGRASTI | | | | | | | M 6MG AR | | | | | | | NORMAL | | | | | | | SALINE | | | | | | | SOLUTION | | | | | | | INFUS, 500 | | | | | | | ML AR | | | | | | | NORMAL | | | | | | | SALINE | | | | | | | SOLUTION | | | | | | | INFUS, 250 | | | | | | | ML AR | | | | | | | STERILE | | | | | | | WATER/SALINE | | | | | | | , 10 ML AR | | | | | | | CHEMOTHER, | | | | | | | IV PUSH,EA | | | | | | | ADD DRUG AR | | | | | | | CHEMOTHER, | | | | | | | IV INFUSION, | | | | | | | 1 HR AR | | | | | | | CHEMOTHER, | | | | | | | IV INFUSION, | | | | | | | EA HR AR | | | | | | | CHEMOTHER,NO | | | | | | | N-HORMONE | | | | | | | ANTI-NEOPL, | | | | | | | SUB-Q/IM AR | | | | | | | [...] + + + + | 11/07/ | [facility] | [facility] | Mohamud, | Diffuse large B-cell | | 2017 | Encounter | MED CTR CHEMO | Gerber Benson MD [address] | lymphoma of | | | | INFUSION [address] | [address] [place] | intra-abdominal | | | | [place], | [place] [address] | lymph nodes (HCC) | | | | [place] [address] | [phone] | (Primary Dx); | | | | [phone] | | Lymphedema of left | | [...] [place] | | | | | | [address] | | | | | | | [...] + | [facility] | [address] | [place] | [phone] | | [facility] | | [address] | | | - LABORATORY | | [...] not | >60Comment: GLOMERULAR | >=60 | [facility] | | | | FILTRATION | mL/min/1.73m2 | [facility] | | | [facility] | RATE,ESTIMATED | | MEDICAL | | | | mL/min/1.61b6Rhhe than | | CENTER - | | [...] 3.5 | 3.2 - 5.0 g/dL | [facility] | | | | | | ST. [...] | | appended report. These | | . [...] + | [facility] | [address] | [place] | [phone] | | [facility] | | [address] | | | - LABORATORY | | | | + + + + + Lactate Dehydrogenase (11/07/2016 8:17 AM PST) + +-------+ + + + | Component | Value | Ref Range | Performed | Pathologist | | | | | At | Signature | + +-------+ + + + | LDH TOTAL | 165 | 91 - 180 U/L | [facility] [...] [address] | [place] | [phone] | | [facility] | | [address] | | | - LABORATORY | | [...] mg, Oral, ONCE, Tue | | 17 9:42 | | | [...] 17 9:43 | | | | | 11/07/16 at 0945, For 1 dose, | | [...] | | | | | Care, Starting Sun11/07/16 at | | | | | | [...]
--- OUTSIDE RECORDS SUMMARY | ~2020-01-25 | XMS | Encounter Summary ---
Demographics + + + | Address | [address] | | | [place] [address] | + + + | Home Phone [...] [place] | | | | | [address] | | + + + + + Care Team Providers + +------+ + | Care Bowl Turner Name | Role | Phone | + [...] | | | | large B-cell | [facility] | | | | | lymphoma of | MD Gerber | [address] | | | | | | [address] | | | | | intra-abdomi | [address] [place] | [place], [place] | | | | | nal lymph | [place], [place] | [address] | | | | | nodes (HCC) | [address] | Phone: | | | | | Procedures | Phone: | [phone] | | | | | CT Chest | [phone] | Fax: | | | | | Abdomen | Fax: | [phone] | | | | | Pelvis w | [phone] | | | | | | Contrast [...] + + | 07/15/ | Hospital | [facility] | Miguel Zuniga | Diffuse large B-cell | | 2018 | Encounter | MED CTR MEDICAL | MD Gerber [address] | lymphoma of | | | | ONCOLOGY CLINIC [address] | [address] [place] | intra-abdominal | | | | [place] | [place] [address] | lymph nodes (HCC) | | | | [place] [address] | [phone] | (Primary Dx) | | | | [phone] | | | +--------+ + + + [...] from the original. Hem-Onc Progress Note [facility] Pt. Name/Age/: Gerber Galindo Jr. 68 y.o. 1950 Med. Record Number: [id number] Date of admission: 07/15/2018 Assessment and plan: 1. 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 Discussion concerning plans for follow-up surveillance monitoring to include recheck CT sca n. This can be scheduled at [facility] close to where patient lives for zac [...] Electronically signed by: Miguel Zuniga, 07/15/2018 10:05 [facility] TIME SPENT 25 MIN. > 50% AT BEDSIDE, WITH FAMILY/PATIENT IN CARE AND SUPERVISOR FABRICATION DEPARTMENT ON UNIT AND CO ORDINATION OF CARE Portions of this chart may have been created with [employer] voice recognition software. Occasi onal wrong-word or sound-alike substitutions may have occurred due to the inherent valencia itations of voice recognition software. Please read the chart carefully and recognize, using context, where these substitutions have occurred. Mckayla Reardon, MACHINE TOOL TECHNOLOGY INSTRUCTOR - 07/15/2018 9:36 AM PDTREVIEW O F [...] [place] | | | | | | [address] | | | | | | | [...]
--- OUTSIDE RECORDS SUMMARY | ~2020-01-25 | XMS | Clinical Summary ---
Demographics + + + | Address | [address] | | | [place] [address] | + + + | Home Phone [...] [place] | | | | | [phone] | | + + + + + Care Team Providers + +------+ + | Care Photo Machine Operator Name | Role | Phone | + +------+ + | Kelsey Quintanilla MD | PCP | | + +------+ + Allergies + + + + + + | Active Allergy | Reactions | Severity | Noted | Comments | | | | | Date | | + + + + + + | Codeine | | | 07/18/20 | "wires him up" | | | | | 16 | | + + + + + + Medications + + + +---------+------+------+-------+ | Medication | Sig | Dispensed | Refills | Star | End | Statu | | | | | | t | Date | s | | | | | | Date | | | + + + +---------+------+------+-------+ | gabapentin | Take 200 mg by mouth | | 4 | 05/25 | | Activ | | (NEURONTIN) 100 mg | 2 times daily. 200 | | | 06/13 | | e | | capsule | mg in AM, 200 mg in | | | 16 | | | | | afternoon, also | | | | | | | | taken with 300 mg in | | | | | | | | evenings. | | | | | | + + + +---------+------+------+-------+ | gabapentin | Take 300 mg by mouth | | 2 | 10/2 | | Activ | | (NEURONTIN) 300 mg | nightly. | | | 0/20 | | e | | capsule | | | | 16 | | | + + + +---------+------+------+-------+ | carvedilol (COREG) | Take 37.5 mg by | | 2 | / | | Activ | | 25 mg tablet | mouth 2 times daily | | | 12/11 | | e | | | (with breakfast & | | | 16 | | | | | dinner). Taking 1.5 | | | | | | | | tabs twice daily. | | | | | | + + + +---------+------+------+-------+ | levothyroxine | | | 3 | 05/26 | | Activ | | (SYNTHROID, | | | | 2 | | e | | LEVOTHROID) 50 mcg | | | | 16 | | | | tablet | | | | | | | + + + +---------+------+------+-------+ | aspirin 81 mg EC | Take 81 mg by mouth | | 0 | | | Activ | | tablet | Daily. | | | | | e | + + + +---------+------+------+-------+ | cetirizine | Take 10 mg by mouth | | 0 | | | Activ | | (ZYRTEC) 10 mg | Daily. | | | | | e | | tablet | | | | | | | + + + +---------+------+------+-------+ | | Apply topically | | 0 | | | Activ | | clotrimazole-betamet | Daily as needed. | | | | | e | | hasone (LOTRISONE) | | | | | | | | cream | | | | | | | + + + +---------+------+------+-------+ | lisinopril | Take 10 mg by mouth | | 0 | | | Activ | | (PRINIVIL, ZESTRIL) | Daily. | | | | | e | | 10 mg tablet | | | | | | | + + + +---------+------+------+-------+ | atorvaSTATin | Take 10 mg by mouth | | 0 | | | Activ | | (LIPITOR) 10 mg | Daily. | | | | | e | | tablet | | | | | | | + + + +---------+------+------+-------+ | metFORMIN | Take 500 mg by mouth | | 0 | | | Activ | | (GLUCOPHAGE) 500 mg | Daily. | | | | | e | | tablet | | | | | | | + + + +---------+------+------+-------+ | Cholecalciferol | Take 10,000 Units by | | 0 | | | Activ | | (VITAMIN D-3) 5000 | mouth Daily. | | | | | e | | units CAPS | | | | | | | + + + +---------+------+------+-------+ | nitroglycerin | Place 1 tablet under | | 0 | 06/2 | 06/2 | Activ | | (NITROSTAT) 0.4 mg | the tongue every 5 | | | 6/20 | 5/20 | e | | SL tablet | minutes as needed | | | 19 | 20 | | | | for Chest pain. | | | | | | + + + +---------+------+------+-------+ | fish oil 1,000 mg | Take 1,000 mg by | | 0 | | | Activ | | capsule | mouth 2 times daily. | | | | | e | + + + +---------+------+------+-------+ | Cyanocobalamin | Take 3,000 mg by | | 0 | | | Activ | | (VITAMIN B-12) 3000 | mouth Daily. | | | | | e | | MCG SUBL | | | | | | | + + + +---------+------+------+-------+ | melatonin 3 mg | Take 3 mg by mouth | | 0 | | | Activ | | TABS | nightly as needed. | | | | | e | + + + +---------+------+------+-------+ | pseudoePHEDrine | Take 30 mg by mouth | | 0 | | | Activ | | (SUDOGEST) 30 mg | every 8 hours as | | | | | e | | tablet | needed for | | | | | | | | Congestion. | | | | | | + + + +---------+------+------+-------+ | meclizine | Take 25 mg by mouth | | 0 | | | Activ | | (ANTIVERT) 25 mg | every 6 hours as | | | | | e | | tablet | needed. 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 Presentation | | with a three month history of progressive Left lower extremity | | edema, urinary frequency and bowel irregularity. Left lower | | extremity venous doppler 2016 ([facility]) No DVT left lower | | extremity. CT abdomen/Pelvis with contrast 2016 | | ([facility]). Extensive periaortic lymphadenopathy (1.8 cm and 2.1 cm | | respectively), extensive adenopathy extending out along the left | | common iliac artery and encasing the left external iliac artery | | (4.4 cm) with compromise of the left external iliac vein.2. Open | | laparotomy with LEFT ileal retroperitoneal lymph node biopsy | | ([facility]) July 05, 2016. Specimen #[id number] ([facility], | | [facility]); Diffuse Large B-Cell lymphoma, germinal | | center subtype (75%). 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 | | Overall Ki-67 expression 70%.3. PET/CT scan on 07/13/2016 was an | | incomplete study because the patient could not tolerate | | positioning but did demonstrate hypermetabolic left | | supraclavicular lymphadenopathy.4. Cardiac Echocardiogram | | 07/24/2016; Ejection fraction 70%.5. Patient declined bone marrow | | biopsy and aspiration.6. Cycle#1 of RCHOP plus Neulasta with | | peripheral iv access on July 25, 2016. 7. Right internal | | jugular Port-a-Cath by Dr. David Morton on August 10, 2016.8. | | Cycle#2 of RCHOP plus Neulasta on August 14, 2016.9. Cycle#3 of | | RCHOP plus Neulasta on September 04, 2016.10. CT Abdomen/Pelvis | | at [facility] on September 12, 2016; | | Positive Response when compared to July 04, 2016.Region | | July 04, 2016 September 12, 2016 RIGHT Retroperitoneal 18 mm 6 | | mm LEFT Retroperitoneal 21 mm resolved LEFT iliac artery 22 x 26 | | mm 14 x 22 mm Left Iliac lymph node chain 60 x 40 mm 28 x 28 mm | | 11. 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 Cycle #5 RCHP (vincrisitne | | dropped due to peripheral neuropathy) October 17, 2016.13. | | Patient electively discontinued cytotoxic chemotherapy due to | | intolerable adverse effect on November 07, 2016 fatigue, nausea | | (without emesis), night sweats, dysphagia, dyspepsia, numbness in | | the fingers and toes which has progressed in the lower | | extremities to include painful dysesthesias, dysuria, insomnia, | | decreased mental acuity and separation of the toenails from the | | nailbeds, headaches and decreased visual acuity, chest pain and | | palpitations, and dyspnea on exertion, rhinorrhea and epiphora) | | and crossed over to rituximab maintenance 375 mg/m once ever | | two months for two years (PRIMA protocol).14. Repeat CT scan at | | [facility], [place], [place] on December 01, 2016 | | demonstrated stable left iliac lymph node chain adenopathy.Region | | July 04, 2016 September 12, 2016 December 01, 2016 RIGHT | | Retroperitoneal 18 mm 6 mm resolved LEFT Retroperitoneal 21 mm | | resolved resolved LEFT iliac artery 22 x 26 mm 14 x 22 mm | | resolved Left Iliac lymph node chain 60 x 40 mm 28 x 28 mm 31 x | | [address] scan at [facility] on April 18 | | 2016 demonstrated decreased left iliac lymph node chain | | adenopathy.Region July 04, 2016 September 12, 2016 December 01, | | 2016April 18, 2017 RIGHT Retroperitoneal 18 mm 6 mm resolved | | resolved LEFT Retroperitoneal 21 mm resolved resolved resolved | | LEFT iliac artery 22 x 26 mm 14 x 22 mm resolved resolved Left | | Iliac lymph node chain 60 x 40 mm 28 x 28 mm 31 x 21 mm 21 X 19 | | mm 16. Repeat CT scan at [facility] on November 21, | | 2017 demonstrated decreased left iliac lymph node chain | | adenopathy.Region 06/2016 RIGHT | | Retroperitoneal 18 mm 6 mm resolved resolved resolved LEFT | | Retroperitoneal 21 mm resolved resolved resolved resolved LEFT | | iliac artery 22 x 26 mm 14 x 22 mm resolved resolved resolved | | Left Iliac lymph node chain 60 x 40 mm 28 x 28 mm 31 x 21 mm 21 X | | 19 mm 18 x [address] scan at [facility] on | | September 09, 2018 demonstrated decreased left iliac lymph node | | chain adenopathy.Region 06/2016 | | 08/2018 RIGHT Retroperitoneal 18 mm 6 mm resolved resolved | | resolved resolved LEFT Retroperitoneal 21 mm resolved resolved | | resolved resolved resolved LEFT iliac artery 22 x 26 mm 14 x 22 | | mm resolved resolved resolved resolved Left Iliac lymph node | | chain 60 x 40 mm 28 x 28 mm 31 x 21 mm 21 X 19 mm 18 x 15 mm 16 | | mm x 8 mm Last Assessment & Plan: Gerber Galindo Jr. | | returned to clinic on 05/20/2018 with his , Mara, for | | follow-up and ongoing maintenance of remission therapy with | | rituximab for symptomatic, mixed diffuse large B-cell/follicular | | B-cell lymphoma.Interval history is notable for the fact that | | Rios has been through two courses of antibiotics to recover from | | an upper respiratory tract infection.Review of systems is | | notable for the fact that dyspnea and cough have | | improved.Clinical exam is notable for clear lung moore | | bilaterally.Laboratory exam is negative for any signs of | | kyowddo-dihum-[id number].Assessment; 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 Rios, | | Mara and I engaged in a discussion regarding the possibility | | that Rios's recurrent upper respiratory tract infections could | | be related to chronic hypogammaglobulinemia from his cancer and | | caner treatment, which can be mitigated by elective treatment | | with intravenous immune globulin. We agreed to add quantitative | | IGG, IGA, IGM to his follow up labs in June and re-engage in | | the discussion regarding IVIG treatment afterwards. | + + + + + | B-cell lymphoma | 07/18/2016 | + + + | CPAP (continuous positive airway pressure) dependence | 02/26/2014 | + + + | GERD (gastroesophageal reflux disease) | 02/26/2014 | + + + Resolved Problems + + + + | Problem | Noted | Resolved | | | Date | Date | + + + + | Lymphedema of left lower extremity | 08/25/20 | | | | 16 | 0 | + + + + + + | Last Assessment & Plan: Referral for manual therapy. | + + + + + + | Diffuse large B-cell lymphoma of intra-abdominal lymph nodes | 07/18/20 | | | | 16 | 0 | + + + + + + | Overview: Formatting of this note may be different from the | | original.ACTIVE DIAGNOSIS: Mixed; Diffuse Large B-Cell/Follicular | | Lymphoma, at least Stage III.1. Presentation with a three month | | history of progressive Left lower extremity edema, urinary | | frequency and bowel irregularity. Left lower extremity venous | | doppler 2016 ([facility]) No DVT left lower extremity. CT | | abdomen/Pelvis with contrast 2016 ([facility]). Extensive | | periaortic lymphadenopathy (1.8 cm and 2.1 cm respectively), | | extensive adenopathy extending out along the left common iliac | | artery and encasing the left external iliac artery (4.4 cm) with | | compromise of the left external iliac vein.2. Open laparotomy | | with LEFT ileal retroperitoneal lymph node biopsy ([facility]) | | July 05, 2016. Specimen #[id number] ([facility] | | [facility]); Diffuse Large B-Cell lymphoma, germinal center | | subtype (75%). 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 Overall Ki-67 | | expression 70%.3. PET/CT scan on 07/13/2016 was an incomplete | | study because the patient could not tolerate positioning but did | | demonstrate hypermetabolic left supraclavicular | | lymphadenopathy.4. Cardiac Echocardiogram 07/24/2016; Ejection | | fraction 70%.5. Patient declined bone marrow biopsy and | | aspiration.6. Cycle#1 of RCHOP plus Neulasta with peripheral iv | | access on July 25, 2016. 7. Right internal jugular Port-a-Cath | | by Dr. David Morton on August 10, 2016.8. Cycle#2 of RCHOP plus | | Neulasta on August 14, 2016.9. Cycle#3 of RCHOP plus Neulasta | | on September 04, 2016.10. CT Abdomen/Pelvis at [facility] on September 12, 2016; Positive Response | | when compared to July 04, 2016.Region July 04, 2016 | | September 12, 2016 RIGHT Retroperitoneal 18 mm 6 mm LEFT | | Retroperitoneal 21 mm resolved LEFT iliac artery 22 x 26 mm 14 x | | 22 mm Left Iliac lymph node chain 60 x 40 mm 28 x 28 mm 11. 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 Cycle #5 RCHP (vincrisitne dropped due to | | peripheral neuropathy) October 17, 2016.13. Patient electively | | discontinued cytotoxic chemotherapy due to intolerable adverse | | effect on November 07, 2016 fatigue, nausea (without emesis), | | night sweats, dysphagia, dyspepsia, numbness in the fingers and | | toes which has progressed in the lower extremities to include | | painful dysesthesias, dysuria, insomnia, decreased mental acuity | | and separation of the toenails from the nailbeds, headaches and | | decreased visual acuity, chest pain and palpitations, and dyspnea | | on exertion, rhinorrhea and epiphora) and crossed over to | | rituximab maintenance 375 mg/m once ever two months for two | | years (PRIMA protocol).14. Repeat CT scan at [place], [place] on December 01, 2016 demonstrated stable | | left iliac lymph node chain adenopathy.Region July 04, 2016 | | September 12, 2016 December 01, 2016 RIGHT Retroperitoneal 18 mm 6 mm | | resolved LEFT Retroperitoneal 21 mm resolved resolved LEFT iliac | | artery 22 x 26 mm 14 x 22 mm resolved Left Iliac lymph node | | chain 60 x 40 mm 28 x 28 mm 31 x [address] scan at [facility] on April 18, 2017 demonstrated decreased left | | iliac lymph node chain adenopathy.Region July 04, 2016 | | September 12, 2016 December 01, 2016 April 18, 2017 RIGHT | | Retroperitoneal 18 mm 6 mm resolved resolved LEFT Retroperitoneal | | 21 mm resolved resolved resolved LEFT iliac artery 22 x 26 mm 14 | | x 22 mm resolved resolved Left Iliac lymph node chain 60 x 40 mm | | 28 x 28 mm 31 x 21 mm 21 X [address] scan at [facility] on November 21, 2017 demonstrated decreased left | | iliac lymph node chain adenopathy.Region 2015Sep 12, | | 2015Dec 01, 2016 Apr 18, 2017 Nov 21, 2017 RIGHT Retroperitoneal | | 18 mm 6 mm resolved resolved resolved LEFT Retroperitoneal 21 mm | | resolved resolved resolved resolved LEFT iliac artery 22 x 26 mm | | 14 x 22 mm resolved resolved resolved Left Iliac lymph node | | chain 60 x 40 mm 28 x 28 mm 31 x 21 mm 21 X 19 mm 18 x 15 mm Last | | Assessment & Plan: Gerber Galindo Jr. returned to clinic on | | 01/28/2018 with his , Mara, for follow-up and treatment of | | composite diffuse large B-cell/follicular B-cell lymphoma. Rios | | continues to use a 32 chamber intermittent pneumatic compression | | garment 90 minutes a day at home for disease-related left lower | | extremity lymphedema.Review of systems is notable for the fact | | that 's cough has resolved without specific | | intervention.Clinical exam is negative for adenopathy.Laboratory | | exam is notable for a normal LDH.Assessment; Composite B-cell | | lymphoma, at least stage IIIA.Plan; Proceed with Cycle #9 | | maintenance rituximab therapy today.Return in two months for | | Cycle #10 of a planned 12 maintenance cycles of | | rituximab.Consider repeat imaging after cycle #12.Overview: | | Formatting of this note might be different from the | | original.ACTIVE DIAGNOSIS: Mixed; Diffuse Large B-Cell/Follicular | | Lymphoma, at least Stage III.1. Presentation with a three month | | history of progressive Left lower extremity edema, urinary | | frequency and bowel irregularity. Left lower extremity venous | | doppler 2016 ([facility]) No DVT left lower extremity. CT | | abdomen/Pelvis with contrast 2016 ([facility]). Extensive | | periaortic lymphadenopathy (1.8 cm and 2.1 cm respectively), | | extensive adenopathy extending out along the left common iliac | | artery and encasing the left external iliac artery (4.4 cm) with | | compromise of the left external iliac vein.2. Open laparotomy | | with LEFT ileal retroperitoneal lymph node biopsy ([facility], [facility]) | | July 05, 2016. Specimen #[id number] ([facility] | | [facility]); Diffuse Large B-Cell lymphoma, germinal center | | subtype (75%). 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 Overall Ki-67 | | expression 70%.3. PET/CT scan on 07/13/2016 was an incomplete | | study because the patient could not tolerate positioning but did | | demonstrate hypermetabolic left supraclavicular | | lymphadenopathy.4. Cardiac Echocardiogram 07/24/2016; Ejection | | fraction 70%.5. Patient declined bone marrow biopsy and | | aspiration.6. Cycle#1 of RCHOP plus Neulasta with peripheral iv | | access on July 25, 2016. 7. Right internal jugular Port-a-Cath | | by Dr. David Morton on August 10, 2016.8. Cycle#2 of RCHOP plus | | Neulasta on August 14, 2016.9. Cycle#3 of RCHOP plus Neulasta | | on September 04, 2016.10. CT Abdomen/Pelvis at [facility] [place] on September 12, 2016; Positive Response | | when compared to July 04, 2016.Region July 04, 2016 | | September 12, 2016 RIGHT Retroperitoneal 18 mm 6 mm LEFT | | Retroperitoneal 21 mm resolved LEFT iliac artery 22 x 26 mm 14 x | | 22 mm Left Iliac lymph node chain 60 x 40 mm 28 x 28 mm 11. 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 Cycle #5 RCHP (vincrisitne dropped due to | | peripheral neuropathy) October 17, 2016.13. Patient electively | | discontinued cytotoxic chemotherapy due to intolerable adverse | | effect on November 07, 2016 fatigue, nausea (without emesis), | | night sweats, dysphagia, dyspepsia, numbness in the fingers and | | toes which has progressed in the lower extremities to include | | painful dysesthesias, dysuria, insomnia, decreased mental acuity | | and separation of the toenails from the nailbeds, headaches and | | decreased visual acuity, chest pain and palpitations, and dyspnea | | on exertion, rhinorrhea and epiphora) and crossed over to | | rituximab maintenance 375 mg/m once ever two months for two | | years (PRIMA protocol).14. Repeat CT scan at [place], [place] on December 01, 2016 demonstrated stable | | left iliac lymph node chain adenopathy.Region July 04, 2016 | | September 12, 2016 December 01, 2016 RIGHT Retroperitoneal 18 mm 6 mm | | resolved LEFT Retroperitoneal 21 mm resolved resolved LEFT iliac | | artery 22 x 26 mm 14 x 22 mm resolved Left Iliac lymph node | | chain 60 x 40 mm 28 x 28 mm 31 x [address] scan at [facility] on April 18, 2017 demonstrated decreased left | | iliac lymph node chain adenopathy.Region July 04, 2016 | | September 12, 2016 December 01, 2016 April 18, 2017 RIGHT | | Retroperitoneal 18 mm 6 mm resolved resolved LEFT Retroperitoneal | | 21 mm resolved resolved resolved LEFT iliac artery 22 x 26 mm 14 | | x 22 mm resolved resolved Left Iliac lymph node chain 60 x 40 mm | | 28 x 28 mm 31 x 21 mm 21 X [address] scan at [facility] on November 21, 2017 demonstrated decreased left | | iliac lymph node chain adenopathy.Region 06/2016 | | 03/2017 RIGHT Retroperitoneal 18 mm 6 mm resolved | | resolved resolved LEFT Retroperitoneal 21 mm resolved resolved | | resolved resolved LEFT iliac artery 22 x 26 mm 14 x 22 mm | | resolved resolved resolved Left Iliac lymph node chain 60 x 40 mm | | 28 x 28 mm 31 x 21 mm 21 X 19 mm 18 x [address] scan | | at [facility] on September 09, 2018 demonstrated | | decreased left iliac lymph node chain adenopathy.Region 06/2016 | | 08/2016 RIGHT Retroperitoneal 18 | | mm 6 mm resolved resolved resolved resolved LEFT Retroperitoneal | | 21 mm resolved resolved resolved resolved resolved LEFT iliac | | artery 22 x 26 mm 14 x 22 mm resolved resolved resolved resolved | | Left Iliac lymph node chain 60 x 40 mm 28 x 28 mm 31 x 21 mm 21 X | | 19 mm 18 x 15 mm 16 mm x 8 mm Last Assessment & Plan: Gerber Carolyn | | Josie Jerez returned to clinic on 05/20/2018 with his , | | Mara, for follow-up and ongoing maintenance of remission | | therapy with rituximab for symptomatic, mixed diffuse large | | B-cell/follicular B-cell lymphoma.Interval history is notable for | | the fact that Rios has been through two courses of antibiotics | | to recover from an upper respiratory tract infection.Review of | | systems is notable for the fact that dyspnea and cough have | | improved.Clinical exam is notable for clear lung moore | | bilaterally.Laboratory exam is negative for any signs of | | kxenona-emhsm-ysamvgfqoia.Assessment; 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 Rios, | | Mara and I engaged in a discussion regarding the possibility | | that Rios's recurrent upper respiratory tract infections could | | be related to chronic hypogammaglobulinemia from his cancer and | | caner treatment, which can be mitigated by elective treatment | | with intravenous immune globulin. We agreed to add quantitative | | IGG, IGA, IGM to his follow up labs in June and re-engage in | | the discussion regarding IVIG treatment afterwards. | + + Family History + + +------+ + | Medical History | Relation | Name | Comments | + + +------+ + | Cancer | Father | | multiple myeloma | + + +------+ + | Heart attack | Father | | | + + +------+ + | Cancer | Mother | | lymphoma and leukemia | + + +------+ + | Heart disease | Other | | | + + +------+ + + +------+ + + | Relation | Name | Status | Comments | + +------+ + + | Daughter | | Alive | | + +------+ + + | Father | | | | + +------+ + + | Maternal Grandfather | | | | + +------+ + + | Maternal Grandmother | | | | + +------+ + + | Mother | | | | + +------+ + + | Other | | | | + +------+ + + | Paternal Grandfather | | | | + +------+ + + | Paternal Grandmother | | | | + +------+ + + | Sister | | Alive | | + +------+ + + | Sister | | | | + +------+ + + | Son | | Alive | | + +------+ + + | Son | | Alive | | + +------+ + + Social History + +-------+ +--------+ [...] | + + Last Filed Vital Signs + + + + + | Vital Sign | Reading | Time Taken | Comments | + + + + + | Blood Pressure | 118/66 | 10/01/2019 10:47 AM | | | | | PST | | + + + + + | Pulse | 59 | 10/01/2019 10:47 AM | | | | | PST [...] + + + | Oxygen Saturation | 93% | 10/01/2019 10:47 AM | | | | | PST | | + + + + + | Inhaled Oxygen | - | - | | | Concentration | | | | + + + + + | Weight | 145.2 kg (320 lb) | 10/01/2019 10:47 AM | | | | | PST | | + + + + + | Height | 185.4 cm (6' 1") | 10/01/2019 10:47 AM | | | | | PST | | + + + + + | Body Mass Index | 42.22 | 10/01/2019 10:47 AM | | | | | PST | | + + + + + Plan of Treatment +--------+---------+ + + + | Date | Type | Specialty | Care Team | Description | +--------+---------+ + + + | 05/19/ | Office | Cardiology | Karen Bansal, | | | 2019 | Visit | | MD Patricia JOHNSON | | | | | | [address] [place] | | | | | | [id number] | | | | | | | | +--------+---------+ + + + + + + + + | Health Maintenance | Due Date | Last Done | Comments | + + + + + | Hepatitis C | | | | | Screening | 1 | | | + + + + + | Vaccine: | | | | | Dtap/Tdap/Td (1 - | 2 | | | | Tdap) | | | | + + + + + | Colorectal Cancer | | | | | Screening | 1 | | | | (Colonoscopy) | | | | + + + + + | Vaccine: Zoster (1 | | | | | of 2) | 1 | | | + + + + + | Adult Annual | | | | | Wellness Visit | 5 | | | + + + + + | Statin Therapy | | | | | (optimal intensity) | 5 | | | + + + + + | Vaccine: | | | | | Pneumococcal 65+ (1 | 6 | | | | of 2 - PCV13) | | | | + + + + + | Vaccine: Influenza | | | | | (Season Ended) | 0 | | | + + + + + | AAA Screening | Completed | 04/18/2017, 09/12/2016, | | | | | 07/04/2016 | | + + + + + Procedures + +--------+ + + + | Procedure Name | Priori | Date/Time | Associated Diagnosis | Comments | | | ty | | | | + +--------+ + + + | PATHOLOGY - EXTERNAL | | 12/17/2019 | | Results for this | | SCAN | | 12:00 AM | | procedure are in the | | | | PDT | | results section. | + +--------+ + + + from Last 3 Months Results PATHOLOGY - EXTERNAL SCAN (12/17/2019 12:00 AM PDT) + + + | Narrative | Performed At | + + + | Ordered by an | | | unspecified provider. | | + + + from Last 3 Months Insurance + +--------+ +--------+ +---------+--------+ | Payer | Benefi | Subscriber | Effect | Phone | Address | Type | | | t Plan | ID | isidra | | | | | | / | | Dates | | | | | | Group | | | | | | + +--------+ +--------+ +---------+--------+ | MEDICARE | MEDICA | [id number] | | [phone] | | Medica | | | RE | | 016-Pr | 5 | | re | | | PART A | | esent | | | | | | AND B | | | | | | + +--------+ +--------+ +---------+--------+ | MEDICARE | MEDICA | [id number] | | [phone] | | Medica | | | RE | | 016-Pr | 5 | | re | | | PART A | | esent | | | | | | AND B | | | | | | + +--------+ +--------+ +---------+--------+ | BCBS | BCBS | [id number] | | | | PPO | | | FEDERA | | 016-Pr | | | | | | L FEP | | esent | | | | + +--------+ +--------+ +---------+--------+ | BCBS | BCBS | [id number] | 09/24/19 | | | PPO | | | OOS | | 17-Pre | | | | | | PPO | | sent | | | | + +--------+ +--------+ +---------+--------+ + +--------+ +--------+ + + | Guarantor Name | Accoun | Relation to | Date | Phone | Billing Address | | | t Type | Patient | of | | | | | | | | | | + +--------+ +--------+ + + | Gerber Galindo | Person | Self [birth year] | [address] | | | al/Fam | | 1950 | [phone] | [place] | | | [place] | | | 0 (Home) | [phone] | + +--------+ +--------+ + + | Gerber Galindo | Person | Self | [birth year] | [address] | | | al/Fam | | 1950 | [phone] | [place] | | | [place] | | | 0 (Home) | [address] | + +--------+ +--------+ + + Advance Directives + + + + + | Type | Date Recorded | Patient | Explanation | | | | Echocardiography Technologist | | + + + + + | Power of | | | | | Accountant Cost | | | | + + + + + | Advance | | | | | Directive | | | | + + + + +
--- OUTSIDE RECORDS SUMMARY | ~2020-01-25 | XMS | Encounter Summary ---
Demographics + + + | Address | [address] | | | [place] [address] | + + + | Home Phone | | + + + | Preferred Language | Unknown | + + + | Marital Status | | + + + | Jain Affiliation | 1013 | + + + [...] [place] | | | | | [address] | | + + + + + Care Team Providers + +------+ + | Care Groundskeeper Name | Role | Phone | + +------+ + | Earle Chacko MD | PCP | | + +------+ + Reason for Visit + + + | Reason | Comments | + + + | Therapy Discharge | | + + + | Therapy Daily | | | Treatment | | + + + Encounter Details +--------+---------+ + + + | Date | Type | Department | Care Team | Description | +--------+---------+ + + + | 09/26/ | Office | [facility] | Mohamud, | Lymphedema of left | | 2017 | Visit | MED CNT ONCOLOGY | Gerber Benson MD [address] | lower extremity | | | | THERAPY [address] | [address] [place] | (Primary Dx) | | | | [place], | [place] [address] | | | | | [place] [address] | [phone] | | | | | [phone] | | | | | | | [...] encounter Progress Notes Olivia Portillo OT - 09/26/2016 2:20 PM PST Occupational Therapy Plan of Care Date: 09/26/2016 Patient Name: Gerber Galindo Date of : 1950 Encounter Diagnoses Code Name Primary? I89.0 Lymphedema of left lower extremity Yes Date of Onset: 2016 Start of Care Date: 08/24/2016 Requested # of Visits: 8 visits 1x/week for 8 weeks Certification From: 08/24/2016 Certification To: 10/24/2016 Clinical Impression: Gerber Galindo has completed therapy for treatment of LLE edema. Most treatment goals have been met. Patient continues to have impairments with intermittent edema and tenderness affe cting his functional ability to be fully independent with higher level ADLs and feel fully c omfortable with his LLE. With this patients continued focus on his HEP this/these impairment s should continue to improve. 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 Goal 3 Status: Goal met Treatment Plan/Interventions 55221 - OT [id number] - Therapeutic Tfjkznox84479 - Therapeutic [id number] - Manu al Therapy Patient and/or family has indicated understanding of treatment needs and actively participa ian in the creation of this plan for care. Electronically signed by: Olivia Portillo OT, 09/26/2016 14:21 Patient Name: Gerber Galindo/: 1950/ Evelyn Vela OT - 09/26/2016 2:14 PM PSTFormatting of this note might be different from the [facility] [address] [place] [address] Occupational Therapy Discharge Note Date: 09/26/2016 Patient Information Patient Name: Gerber Galindo Date of : 1950 Age: 66 y.o. History Encounter Diagnoses Code Name Primary? I89.0 Lymphedema of left lower extremity Yes Date of Onset: 2016 Referring Provider: Gerber Mallory MD Rehab Precautions Office Visit from 08/24/2016 in [facility] OT OP Rehab Precautions Precautions None Rehab Learning Style Office Visit from 08/24/2016 in [facility] OT OP Learning Style Patient's Optimum Learning Style performance of task, reading Pain Assessment: Pain Scale Used: NUMERIC Pain Rating During Assessment: 1 Location: palpation Percent of Time Pain is Experienced: 26-50% DISCHARGE NOTE: SUBJECTIVE: Gerber Galindo has completed 4 visits for treatment of [...] Life Impact Scale disability score:: 38.24 Assessment Gerber Galindo has completed therapy for treatment of LLE [...] of an appropriate compression garm ents for 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 Goal 3 Status: Goal met Plan Date of Onset: 2016 Start of Care Date: 08/24/2016 Requested # of Visits: 8 visits 1x/week for 8 weeks Certification From: 08/24/2016 Certification To: 10/24/2016 Treatment Plan/Interventions 84719 - OT [id number] - Therapeutic Hnjvbyzu72668 - Therapeutic Bkwpowrknj89658 - Manu al Therapy Patient and/or family has indicated understanding of treatment needs and actively participa ian in the creation of this plan for care. Today's Treatment Start Time: 1230 Stop time: 1245 Duration: 15 minutes Timed Treatment Codes: 15 minutes # of OT Visits: 4 Objective: Patient and spouse report stabilized edema in LLE. Report that there are now d ays when his L leg will "look just like his right leg". Patient continues and was encourage d to continue to use compression garment as well as MLM techniques for edema mgmt. Patient and spouse have no further questions or concerns at this time. PLAN: Discharge to [facility]. Electronically signed by: Olivia Portillo OT, 09/26/2016 14:19 Patient Name: Gerber Galindo/: 1950/ documented in [...] [place] | | | | | | [address] | | | | | | | | +--------+---------+ + + + documented as of this encounter Visit Diagnoses + + | Diagnosis | + + | Lymphedema of left lower extremity - Primary | + + documented in this encounter
--- OUTSIDE RECORDS SUMMARY | ~2020-01-25 | XMS | Encounter Summary ---
Demographics + + + | Address | [address] | | | [place] [address] | + + + | Home Phone | | + + + | Preferred Language | Unknown | + + + | Marital Status | | + + + | Yazdanism Affiliation | 1013 | + + + | Race | Unknown | + + + | Ethnic Group | Unknown | + + + Author + + + | Author | [facility] | | | and [place] | + + + | Organization | [facility] | | [...] [place] | | | | | [address] | | + + + + + Care Team Providers + +------+ + | Care Director On Air Name | Role | Phone | + +------+ + | Kelsey Quintanilla MD | PCP | | + +------+ + Encounter Details +--------+ + + + + | Date | Type | Department | Care Team | Description | +--------+ + + + + | 04/18/ | Orders Only | [facility] | Provider, | | | 2019 | | SYSTEM GENERIC OP | MD [address] | | | | | [address] | [place] [address]. | | | | | [address] [place], [place] | [place] [address] | | | | | [address] | | | | | | [phone] | | | +--------+ + + + [...] | | | | | [place], [place] | | | | | | [address] | | | | | | | | +--------+---------+ + + + documented as of this encounter Visit Diagnoses Not on filedocumented in this encounter"
--- OUTSIDE RECORDS SUMMARY | ~2020-01-25 | XMS | Encounter Summary ---
Demographics + + + | Address | [address] | | | [place] [address] | + + + | Home Phone | | + + + | Preferred Language | Unknown | + + + | Marital Status | | + + + | Alevism Affiliation | 1013 | + + + | Race | Unknown | + + + | Ethnic Group | Unknown | + + + Author + + + | Author | [facility] | | | and [place] | + + + | Organization | [facility] | | [...] [place] | | | | | [address] | | + + + + + Care Team Providers + +------+ + | Care Ditto Machine Operator Name | Role | Phone | + +------+ + | Earle Chacko MD | PCP | | + +------+ + Encounter Details +--------+ + + + + | Date | Type | Department | Care Team | Description | +--------+ + + + + | 04/23/ | Hospital | [facility] | Miguel Zuniga | Diffuse large B-cell | | 2017 | Encounter | MED CTR MEDICAL | MD Gerber [address] | lymphoma of | | | | ONCOLOGY CLINIC [address] [place] | intra-abdominal | | | | [address] [place] | [place] [address] | lymph nodes (HCC) | | | | [place] [address] | [phone] | (Primary Dx) | | | | [phone] | | | +--------+ + + + [...] erent from the original. Hem-Onc Progress Note [facility] Pt. Name/Age/: Gerber Galindo Jr. 66 y.o. 1950 Med. Record Number: [id number] Date of admission: 04/23/2017 Assessment and plan: [...] continuing on a program of massage through [facility] and physical the rapy there. He wonders [...] Electronically signed by: Miguel Zuniga, 04/23/2017 9:29 [facility] TIME SPENT 25 MIN. > 50% AT BEDSIDE, WITH FAMILY/PATIENT IN CARE AND MAINTENANCE MANAGER ON UNIT AND CO ORDINATION OF CARE Portions of this chart may have been created with [employer] voice recognition software. Occasi onal wrong-word or sound-alike substitutions may have occurred due to the inherent valencia itations of voice recognition software. Please read the chart carefully and recognize, using context, where these substitutions have occurred. 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
--- OUTSIDE RECORDS SUMMARY | ~2020-01-25 | XMS | Encounter Summary ---
Demographics + + + | Address | [address] | | | [place] [address] | + + + | Home Phone | | + + + | Preferred Language | Unknown | + + + | Marital Status | | + + + | Buddhist Affiliation | 1013 | + + + | Race | Unknown | + + + | Ethnic Group | Unknown | + + + Author + + + | Author | [facility] | | | and [place] | + + + | Organization | [facility] | | [...] [place] | | | | | [address] | | + + + + + Care Team Providers + +------+ + | Care Trial Court Judge Name | Role | Phone | + [...] + + | 07/25/ | Hospital | [facility] | Mohamud, | Diffuse large B-cell | | 2016 | Encounter | MED CTR MED[facility] | Joaquim Benson MD [address] | lymphoma of | | | | ONCOLOGY CLINIC [address] [place] | intra-abdominal | | | | [address] [place] | [place] [address] | lymph nodes (HCC) | | | | [place] [address] | [phone] | | | | | [phone] | | | +--------+ + + + [...] + documented as of this encounter Progress Joaquim Diaz MD - 07/25/2016 8:51 AM PDTFormatting of this note might be differe nt from the original. Hematology/Oncology Progress Note [facility] [place] Pt. Name/Age/: Joaquim Galindo 66 y.o. 1950 [facility]. Record Number: [id number] Date of admission: 07/25/2016 Identifying Statement: Joaquim Galindo is a 66 y.o. male from [address] [address] with Diffuse Large B-Cell Lymphoma. The patient [...] lower extremity. CT abdomen/Pelvis with contrast 2016 ([facility]). Ex tensive periaortic lymphadenopathy (1.8 cm and 2.1 cm respectively), extensive adenopathy ex tending out along the left common iliac artery and encasing the left external iliac artery ( 4.4 cm) with compromise of the left external iliac vein. 2. Open laparotomy with LEFT ileal retroperitoneal lymph node biopsy ([facility]) June 242015. Specimen #[id number] ([facility]); Diffuse Large B-Cell lymph [...] Mara discussing the risks and benefits of sy kaiser multiagent chemoimmunotherapy with [facility] for diffuse large B-Cell lymphoma, including the use of allopurinol to prevent tumor lysis syndrome, prophylactic use of ondansetron to p revent chemotherapy induced nausea and vomiting, use of lorazepam for rescue treatment of ch emotherapy induced nausea and vomiting, and the instruction to call the [facility] for any fever of 101 deg F or higher. He will receive Day #2 Neulasta at [facility] in [place], [place] Review of Systems: REVIEW OF SYSTEMS [...] Ma., Rebel REdita., Andie Menezes., Donal Trejo, Michael TDusty., Armando Diamond., Fatoumata, P .P.: [...] Pharmacovigilance: Clinical Oncology Pharmacy Services Progress Note [facility] Pt. Name/Age/: Joaquim Galindo 66 y.o. 1950 CSN: [id number] Date of service: 07/21/2016 Provider: Olga Pepe, GABINO Identifying Statement: Joaquim Galindo is a 66 y.o. male from [address] [address], The encounter diagnosis was Diffuse large B-cell [...] for comparison only - no result from [place]. Vas Lower Extremity Venous Left 07/17/2016 External films for comparison only - no result from [facility]. Xr Chest 2 Vw 07/17/2016 External films for comparison only - no result from [facility]. Imaging Report - External Scan 07/21/2016 Ordered [...] Lactate Dehydrogenase STAT, ONE TIME, Sun07/25/16 at 08, For 1 occurrence OrderHistory Uric Acid STAT, [...] HOURS PRN, Anxiety, Starting Sun07/25/16 at 0926 OrderHi story Infusion Reaction Orders Monitor patient Monitor patient [...] this chart may have been created with [employer] recognition software. Occasi onal wrong-word or sound-alike [...] [place] | | | | | | [id number] | | | | | | | [...] | | | | | [place] [address] | | | | + + + + + + + + | Specimen | + + | Blood specimen | | (specimen) | + + + + + + + | Performing | Address | City/State/Zipcode | Phone Number | | Organization | | | | + + + + + | [facility] | [address] | [place] [address] | [phone] | + + + + + CBC [...] [address] | [place] | [phone] | | [facility] | | [address] | | | - LABORATORY | | [...] mL/min/1.73m2 | [facility] | | | [facility] | RATE,ESTIMATED | | MEDICAL | | | | mL/min/1.80c1Mmzq than | | CENTER - | | [...] + | [facility] | [address] | [place] | [phone] | | [facility] | | [address] | | | - LABORATORY | | | | + + + + + Uric Acid (07/25/2016 8:08 AM PDT) + +-------+ + + + | Component | Value | Ref Range | Performed | Pathologist | | | | | At | Signature | + +-------+ + + + | Uric Acid | 6.3 | 2.6 - 7.2 mg/dL | [facility] | | | | [...] [address] | [place] | [phone] | | [facility] | | [address] | | | - LABORATORY | | | | + + + + + Lactate Dehydrogenase (07/25/2016 8:08 AM PDT) + +---------+ + + + | Component | Value | Ref Range | Performed | Pathologist | | | | | At | Signature | + +---------+ + + + | LDH TOTAL | 223 (H) | 91 - 180 U/L | [facility] [...] [address] | [place] | [phone] | | [facility] | | [address] | | | - LABORATORY | | [...] | | | | | [place] [address] | | | | + + + + + + + + | Specimen | + + | Blood specimen | | (specimen) | + + + + + + + | Performing | Address | City/State/Zipcode | Phone Number | | Organization | | | | + + + + + | [facility] | [address] | [place] [address] | [phone] | + + + + + Hepatitis [...] | | | | | [place] [address] | | | | + + + [...] [address] | [place] [address] | [phone] | + + + + + Hepatitis [...] [facility] | | | | [address] [place], | | | | | | [place] [address] | | | | + + + + + + + + | Specimen | + + | Blood specimen | | (specimen) | + + + + + + + | Performing | Address | City/State/Zipcode | Phone Number | | Organization | | | | + + + + + | [facility] | [address] | [place] [address] | [phone] | + + + + + documented in this encounter Visit Diagnoses + + | Diagnosis | + + | Diffuse large B-cell lymphoma of intra-abdominal lymph nodes (HCC) Other malignant | | lymphomas of intra-abdominal lymph nodes | + + documented in this encounter
--- OUTSIDE RECORDS SUMMARY | ~2020-01-25 | XMS | Encounter Summary ---
Demographics + + + | Address | [address] | | | [place] [address] | + + + | Home Phone | | + + + | Preferred Language | Unknown | + + + | Marital Status | | + + + | Sabianist Affiliation | 1013 | + + + | Race | Unknown | + + + | Ethnic Group | Unknown | + + + Author + + + | Author | [facility] | | | and [place] | + + + | Organization | [facility] | | [...] [place] | | | | | [address] | | + + + + + Care Team Providers + +------+ + | Care Junk Removal Specialist Name | Role | Phone | [...] | Diffuse | Nikhil, | [address] | | | | | large B-cell | Joaquim C, | [place], | | | | | lymphoma of | MD [address] | [place] | | | | | | [address] | [address] | | | | | intra-abdomi | [place], | Phone: | | | | | nal lymph | [place] [address] | [phone] | | | | | nodes (HCC) | Phone: | Fax: | | | | | Procedures | [phone] | [phone] | | | | | ECHO | Fax: | | | | | | Complete | [phone] | | +--------+--------+ + + + + [...] | Diffuse | Nikhil, | [address] | | | | | large B-cell | Joaquim Benson, | [place], | | | | | lymphoma of | [address] | [place] | | | | | | [address] | [address] | | | | | intra-abdomi | [place], | Phone: | | | | | nal lymph | [place] [address] | [phone] | | | | | nodes (HCC) | Phone: | Fax: | | | | | Procedures | [phone] | [phone] | | | | | ECHO | Fax: | | | | | | Complete | [phone] | | +--------+--------+ + + + + Encounter Details +--------+ + + + + | Date | Type | Department | Care Team | Description | +--------+ + + + + | 10/26/ | Hospital | [facility] | Nikhil, | Diffuse large B-cell | | 2017 | Encounter | MED CTR ECHO [address] | Joaquim Benson MD [address] | lymphoma of | | | | [address] [place] | [address] [place] | intra-abdominal | | | | [place] [address] | [place] [address] | lymph nodes (HCC) | | | | [phone] | [phone] | | | | | | | [...] [place] | | | | | | [address] | | | | | | | [...] Room Number JR. Patient | | | [id number] Date of Study 10/26/2016 Number | | | Visit Number [id number] | | | Referring Physician NIKHIL MARCH Number | | | C Date of | | | 1950 Case Filler VALENTIN OLIVEROS, | | | | | | [facility] Age 66 year(s) | | | Interpreting YAMEL DYEKS, | | | Commission Sales Associate Gender | | | Male Nurse Procedure [...] Index: 31 mL/m^2 | | | EF Yqgmndjcn53% Left Ventricle Diastolic Dimension: 5.5 cm | [...] | LA Vol/BSA Index: 31 mL/m^2 EF Cbckybhrp54% | | | | | | Left [...] Rad Results In - 10/27/2016 7:09 AM [facility] Transthoracic Echocardiography Report | | (TTE) Demographics Patient Name DANIEL Leon Room Number JR. | | Patient [id number] Date of Study 10/26/2016 Number Visit Number | | [id number] Referring Physician NIKHIL MARCH | | Number C Date of 1950 | | Case Filler VALENTIN OLIVEROS, | | [facility] Age 66 year(s) Interpreting YAMEL DYKES, | | Commission Sales Associate Gender Male | | NurseProcedureType of Study [...] ml LA Vol/BSA Index: 31 mL/m^2 EF Bjufwuxvz96% Left | | Ventricle Diastolic Dimension: 5.5 [...] | LA Vol/BSA Index: 31 mL/m^2 EF Uuriphrsj37% | | | | Left Ventricle | [...]
--- OUTSIDE RECORDS SUMMARY | ~2020-01-25 | XMS | Encounter Summary ---
Demographics + + + | Address | [address] | | | [place] [address] | + + + | Home Phone | | + + + | Preferred Language | Unknown | + + + | Marital Status | | + + + | Synagogue Affiliation | 1013 | + + + | Race | Unknown | + + + | Ethnic Group | Unknown | + + + Author + + + | Author | [facility] | | | and [place] | + + + | Organization | [facility] | | | [...] [place] | | | | | [address] | | + + + + + Care Team Providers + +------+ + | Care Travel Specialist Name | Role | Phone | [...] + + | 07/25/ | Hospital | [facility] | Mohamud, | Diffuse large B-cell | | 2016 | Encounter | [facility] | Joaquim Benson MD [address] | lymphoma of | | | | ONCOLOGY CLINIC [address] | [address] [place] | intra-abdominal | | | | [address] [place] | [place] [address] | lymph nodes (HCC) | | | | [place] [address] | [phone] | | | | | [phone] | | | +--------+ + + + [...] nt from the original. Hematology/Oncology Progress Note [facility] [place] Pt. Name/Age/: Joaquim Galindo 66 y.o. 1950 [facility]. Record Number: [id number] Date of admission: 07/25/2016 Identifying Statement: Joaquim Galindo is a 66 y.o. male from [address] [address] with Diffuse Large B-Cell Lymphoma. The patient [...] lower extremity. CT abdomen/Pelvis with contrast 2016 ([facility]). Ex tensive periaortic lymphadenopathy (1.8 cm and 2.1 cm respectively), extensive adenopathy ex tending out along the left common iliac artery and encasing the left external iliac artery ( 4.4 cm) with compromise of the left external iliac vein. 2. Open laparotomy with LEFT ileal retroperitoneal lymph node biopsy ([facility]) June 242015. Specimen #[id number] ([facility]); Diffuse Large B-Cell lymph raciel, [...] benefits of sy kaiser multiagent chemoimmunotherapy with [facility] for diffuse large B-Cell lymphoma, including the use of allopurinol to prevent tumor lysis syndrome, prophylactic use of ondansetron to p revent chemotherapy induced nausea and vomiting, use of lorazepam for rescue treatment of ch emotherapy induced nausea and vomiting, and the instruction to call the [facility] for any fever of 101 deg F or higher. He will receive Day #2 Neulasta at [facility] in [place], [place] Review of Systems: REVIEW OF SYSTEMS [...] Pharmacovigilance: Clinical Oncology Pharmacy Services Progress Note [facility] Pt. Name/Age/: Joaquim Galindo 66 y.o. 1950 CSN: [id number] Date of service: 07/21/2016 Provider: Olga Pepe, GABINO Identifying Statement: Joaquim Galindo is a 66 y.o. male from [address] [address], The encounter diagnosis was Diffuse large B-cell [...] of his diagnosis, and chemotherapy in general, al tineo lost several family members to cancer. [...] for comparison only - no result from [facility]. Vas Lower Extremity Venous Left 07/17/2016 External films for comparison only - no result from [facility]. Xr Chest 2 Vw 07/17/2016 External films for comparison only - no result from [facility]. Imaging Report - External Scan 07/21/2016 Ordered [...] this chart may have been created with Boxer recognition software. Occasi onal wrong-word or sound-alike [...] [place] | | | | | | [id number] | | | | | | | [...] | | | | | [place] [address] | | | | + + + + + + + + | Specimen | + + | Blood specimen | | (specimen) | + + + + + + + | Performing | Address | City/State/Zipcode | Phone Number | | Organization | | | | + + + + + | [facility] | [address] | [place] [address] | [phone] | + + + + + CBC [...] [address] | [place] | [phone] | | [facility] | | [address] | | | - LABORATORY | | [...] mL/min/1.73m2 | [facility] | | | [facility] | RATE,ESTIMATED | | MEDICAL | | | | mL/min/1.53t0Stsj than | | CENTER - | | [...] + | [facility] | [address] | [place] | [phone] | | [facility] | | [address] | | | - LABORATORY | | [...] ST. | [address] | [place] | [phone] | | [facility] | | [address] | | | - LABORATORY | | [...] [address] | [place] | [phone] | | [facility] | | [address] | | | - LABORATORY | | [...] | | | | | [place] [address] | | | | + + + + + + + + | Specimen | + + | Blood specimen | | (specimen) | + + + + + + + | Performing | Address | City/State/Zipcode | Phone Number | | Organization | | | | + + + + + | [facility] | [address] | [place] [address] | [phone] | + + + + + Hepatitis [...] | | | | | [place] [address] | | | | + + + [...] [address] | [place] [address] | [phone] | + + + + + Hepatitis [...] | | | | | [place] [address] | | | | + + + + + + + + | Specimen | + + | Blood specimen | | (specimen) | + + + + + + + | Performing | Address | City/State/Zipcode | Phone Number | | Organization | | | | + + + + + | [facility] | [address] | [place] [address] | [phone] | + + + + + documented in this encounter Visit Diagnoses + + | Diagnosis | + + | Diffuse large B-cell lymphoma of intra-abdominal lymph nodes (HCC) Other malignant | | lymphomas of intra-abdominal lymph nodes | + + documented in this encounter
--- OUTSIDE RECORDS SUMMARY | ~2020-01-25 | XMS | Encounter Summary ---
Demographics + + + | Address | [address] | | | [place] [address] | + + + | Home Phone | | + + + | Preferred Language | Unknown | + + + | Marital Status | | + + + | Gnosticism Affiliation | 1013 | + + + | Race | Unknown | + + + | Ethnic Group | Unknown | + + + Author + + + | Author | [facility] | | | and [place] | + + + | Organization | [facility] | | | [...] [place] | | | | | [address] | | + + + + + Care Team Providers + +------+ + | Care Project Development Engineer Name | Role | Phone | + [...] | | ONCOLOGY CLINIC [address] | [facility] | | | | | [address] | [place] [address] | | | | | [place] [address] | [phone] | | | | | [phone] | | | +--------+ + + + [...] [place] | | | | | | [address] | | | | | | | | +--------+---------+ + + + documented as of this encounter Visit Diagnoses Not on filedocumented in this encounter"
--- OUTSIDE RECORDS SUMMARY | ~2020-01-25 | XMS | Encounter Summary ---
Demographics + + + | Address | [address] | | | [place] [address] | + + + | Home Phone [...] | Author | [facility] | | | and [place] | + + + | Organization | [facility] | | | and [...] [place] | | | | | [address] | | + + + + + Care Team Providers + +------+ + | Care Gate Person Name | Role | Phone | + [...] large b-cell | Gerber Benson, | [address] | | | | | lymphoma, | MD [address] | [place], | | | | | intra-abdomi | [address] | [place] [address] | | | | | nal lymph | [place], | Phone: | | | | | nodes (HCC) | [place] [address] | [phone] | | | | | Procedures | Phone: | Fax: | | | | | [place] | [phone] | [phone] | | | | | RITUXIMAB | Fax: | | | | | | INJECTION, | [phone] | | | | | | 100 MG NV | | | | | | | MEPERIDINE | | | | | | | HYDROCHL | | | | | | | /100 MG NV | | | | | | | IV INFUSION, | | | | | | | HYDRATION, | | | | | | | 31-60 MIN | | | | | | | NV IV | | | | | | | INFUSION, | | | | | | | HYDRATION, | | | | | | | EA ADD HOUR | | | | | | | NV | | | | | | | ONDANSETRON | | | | | | | HCL | | | | | | | INJECTION, 1 | | | | | | | MG NV | | | | | | | DEXAMETHASON | | | | | | | E SODIUM | | | | | | | PHOS, 1 MG | | | | | | | NV | | | | | | | FOSAPREPITAN | | | | | | | T INJECTION, | | | | | | | 1 MG NV | | | | | | | PREDNISONE | | | | | | | IR OR DR | | | | | | | ORAL 1MG NV | | | | | | | | | | | | | | CYCLOPHOSPHA | | | | | | | MIDE 100 MG | | | | | | | INJ NV | | | | | | | DOXORUBICIN | | | | | | | HCL | | | | | | | INJECTION, | | | | | | | 10 MG NV | | | | | | | VINCRISTINE | | | | | | | SULFATE 1 MG | | | | | | | INJ NV | | | | | | | DIPHENHYDRAM | | | | | | | INE HCL | | | | | | | INJECTIO, 50 | | | | | | | MG NV | | | | | | | METHYLPREDNI | | | | | | | SOLONE | | | | | | | INJECTION, | | | | | | | 125 MG NV | | | | | | | DEXAMETHASON | | | | | | | E SODIUM | | | | | | | PHOS, 1 MG | | | | | | | NV | | | | | | | INJECTION, | | | | | | | PEGFILGRASTI | | | | | | | M 6MG NV | | | | | | | NORMAL | | | | | | | SALINE | | | | | | | SOLUTION | | | | | | | INFUS, 500 | | | | | | | ML NV | | | | | | | NORMAL | | | | | | | SALINE | | | | | | | SOLUTION | | | | | | | INFUS, 250 | | | | | | | ML NV | | | | | | | STERILE | | | | | | | WATER/SALINE | | | | | | | , 10 ML NV | | | | | | | CHEMOTHER, | | | | | | | IV PUSH,EA | | | | | | | ADD DRUG NV | | | | | | | CHEMOTHER, | | | | | | | IV INFUSION, | | | | | | | 1 HR NV | | | | | | | CHEMOTHER, | | | | | | | IV INFUSION, | | | | | | | EA HR NV | | | | | | | CHEMOTHER,NO | | | | | | | N-HORMONE | | | | | | | ANTI-NEOPL, | | | | | | | SUB-Q/IM NV | | | | | | | [...] + + + + | 02/26/ | [facility] | [facility] | Mohamud, | Diffuse large B-cell | | 2017 | Encounter | MED CTR CHE[facility] | Gerber Benson MD [address] | lymphoma of | | | | INFUSION [address] | [address] [place] | intra-abdominal | | | | [place], | [place] [address] | lymph nodes (HCC); | | | | [place] [address] | [phone] | Lymphedema of left | | | | [phone] | | lower extremity | +--------+ + [...] tablet by | 30 | 1 | 02/13/20 | | | tabletIndications: | mouth Daily. | tablet | | 17 | 7 | | Diffuse large B-cell | | | | | | | lymphoma of | | | | | | | intra-abdominal | | | | | | | lymph nodes (HCC) | | | | | | + + + +---------+ + + documented as of this encounter Progress Notes Livier Olsen RN - 02/26/2017 4:23 PM PDTPatient discharged in satisfactory conditio n. Discharged ambulatory. [...] | | | | | [place], [place] | | | | | | [address] | | | | | | | | +--------+---------+ + + + documented as of this encounter Procedures + +--------+ + + + | Procedure Name | Priori | Date/Time | Associated Diagnosis | Comments | | | ty | | | | + +--------+ + + + | CBC WITH | STAT | 02/26/2017 | Diffuse large | Results for this | | DIFFERENTIAL | | 9:54 AM | B-cell lymphoma of | procedure are in the | | | | PDT | intra-abdominal | results section. | | | | | lymph nodes (HCC) | | + +--------+ + + + | LACTATE | STAT | 02/26/2017 | Diffuse large | Results for this | | DEHYDROGENASE | | 9:54 AM | B-cell lymphoma of | procedure are in the | | | | PDT | intra-abdominal | results section. | | | | | lymph nodes (HCC) | | + +--------+ + + + | COMPREHENSIVE | STAT | 02/26/2017 | Diffuse large | Results for this | | METABOLIC PANEL | | 9:54 AM | B-cell lymphoma of | procedure are in the | | | | PDT | intra-abdominal | results section. | | | | | lymph nodes (HCC) | | + +--------+ + + + documented in this encounter Results CBC with Differential (02/26/2017 9:54 AM PDT) + + + + + + | Component | Value | Ref Range | Performed | Pathologist | | | | | At | Signature | + + + + + + | WBC | 2.7 (L) | 4.0 - 11.0 K/uL | [facility] | [facility] | | | [facility] | | | | | | MEDICAL | | | | | | CENTER - | | | | | | LABORATORY | | + + + + + + | RBC | 4.40 | 4.30 - 5.70 | [facility] | [...] + + + + | Hematocrit | 37.3 (L) | 40.0 - 51.0 % | [facility] | | | [facility] | | | | | | MEDICAL | | | | | | CENTER - | | | | | | LABORATORY | | + + + + + + | MCV | 84.8 | 83.0 - 101.0 fL | [facility] | | | | | [facility] | | | | | | MEDICAL | | | | | | CENTER - | | | | | | LABORATORY | | + + + + + + | MCH | 29.0 | 28.0 - 35.0 pg | [facility] [...] + + + + | RDW-CV | 15.6 (H) | <15.0 % | [facility] | | | | | [facility] | | | | | | MEDICAL | | | | | | CENTER - | | | | | | LABORATORY | | + + + + + + | Platelet | 94 (L) | 140 - 440 K/uL | [...] + + + + | % | 59.0 | 45.0 - 82.0 % | [facility] | | | Neutrophils | | | [facility] | | | | | | MEDICAL | | | | | | CENTER - | | | | | | LABORATORY | | + + + + + + | % | 26.4 | 20.0 - 45.0 % | [facility] [...] + + + + | % | 4.4 | 0.0 - 5.0 % | [facility] [...] + + + + | Absolute | 1.60 (L) | 1.80 - 8.50 | [facility] [...] + + | [facility] | [address] | [place], [place] | [phone] | | [facility] | | [address] | | | - LABORATORY | | | | + + + + + Comprehensive Metabolic Panel (02/26/2017 9:54 AM PDT) + + + + + [...] + + + + | Glucose | 121 (H) | 70 - 109 mg/dL | [...] mL/min/1.73m2 | [facility] | | | [facility] | RATE,ESTIMATED | | MEDICAL | | | | mL/min/1.95g0Plhv than | | CENTER - | | [...] + + + + | Total | 5.8 (L) | 6.0 - 7.8 g/dL | [...] + + + + | Alkaline | 49Comment: This is an | 40 - 110 [...] + | [facility] | [address] | [place] | [phone] | | [facility] | | [address] | | | - LABORATORY | | | | + + + + + Lactate Dehydrogenase (02/26/2017 9:54 AM PDT) + +-------+ + + + | Component | Value | Ref Range | Performed | Pathologist | | | | | At | Signature | + +-------+ + + + | LDH TOTAL | 150 | 91 - 180 U/L | [facility] | [address] | [place] | [phone] | | [facility] | | [address] | | | - LABORATORY | | [...] | acetaminophen (TYLENOL) tablet | Given | 02/27/20 | 650 mg | | | | 650 mg 650 mg, Oral, ONCE, Mon | | 17 12:08 | | | | | 02/26/17 at 1215, For 1 dose, Give | | PM PDT | | | | | 30 minutes prior to riTUXimab., | | | | | | + +--------+ +--------+------+------+ +---+---+ | | | +---+---+ + +-------+ +-------+---+---+ | famotidine (PEPCID) injection | Given | 02/27/20 | 20 mg | | | | 20 mg 20 mg, Intravenous, ONCE, | | 17 12:09 | | | | | 02/26/17 at 1215, For 1 dose, | | PM PDT | | | | | Prior [...] heparin 100 units/mL flush | Given | 02/27/20 | 500 | | | | injection 500 Units 500 Units ( | | 17 4:18 | Units | | | | mL), Intracatheter, PRN, Line | | PM PDT | | | | | Care, Starting 02/26/17 at 1157 | | | | | | + +-------+ +-------+---+---+ +---+---+ | | | +---+---+ + +---------+ + +---+---+ | riTUXimab (RITUXAN) 1,000 mg in | New Bag | 02/27/20 | 1,000 mg | | | | sodium chloride 0.9% 1,000 mL | | 17 12:37 | | | | | infusion 1,000 mg (rounded from | | PM PDT | | | | | 997.5 mg = 375 mg/m2 | | | | | | | 2.66 m2 Treatment plan recorded | | | | | | | BSA), Intravenous, ONCE, Mon | | | | | | | 02/26/17 at 1245, For 1 dose, | | | | [...]
--- OUTSIDE RECORDS SUMMARY | ~2020-01-25 | XMS | Encounter Summary ---
Demographics + + + | Address | [address] | | | [place] [address] | + + + | Home Phone | | + + + | Preferred Language | Unknown | + + + | Marital Status | | + + + | Bahai Affiliation | 1013 | + + + | Race | Unknown | + + + | Ethnic Group | Unknown | + + + Author + + + | Author | [facility] | | | and [place] | + + + | Organization | [facility] | | | [...] [place] | | | | | [address] | | + + + + + Care Team Providers + +------+ + | Care Engineering Supplies Sales Name | Role | Phone | + [...] + + + + | 09/06/ | Telephone | [facility] | Mohamud, | Other | | 2018 | | [facility] | Gerber Benson MD [address] | | | | | ONCOLOGY CLINIC [address] | [facility] | | | | | [address] | [place] [address] | | | | | [place] [address] | [phone] | | | | | [phone] | | | +--------+ + + + [...] [place] | | | | | | [address] | | | | | | | | +--------+---------+ + + + documented as of this encounter Visit Diagnoses Not on filedocumented in this encounter"
--- OUTSIDE RECORDS SUMMARY | ~2020-01-25 | XMS | Encounter Summary ---
Demographics + + + | Address | [address] | | | [place] [address] | + + + | Home Phone [...] [place] | | | | | [address] | | + + + + + Care Team Providers + +------+ + | Care Hand Alterations Tailor Name | Role | Phone | + +------+ + | Kelsey Quintanilla MD | PCP | | + +------+ + Encounter Details +--------+---------+ + + + | Date | Type | Department | Care Team | Description | +--------+---------+ + + + | 10/22/ | Office | [facility] | Michael Corbin AUD | BPPV (benign | | 2019 | Visit | AUDIOLOGY [address] | [address] | paroxysmal | | | | [address] | [address] [place], | positional vertigo), | | | | [place], [place] | [place] [address] | unspecified | | | | [address] | [phone] | laterality (Primary | | | | [phone] | | Dx) | +--------+---------+ + + [...] | | | | | | [facility] [facility] [place] | | | | | | [address] | | | | | | | | +--------+---------+ + + + documented as of this encounter Visit Diagnoses + + | Diagnosis | + + | BPPV (benign paroxysmal positional vertigo), unspecified laterality - Primary | + + documented in this encounter"
--- OUTSIDE RECORDS SUMMARY | ~2020-01-25 | XMS | Encounter Summary ---
Demographics + + + | Address | [address] | | | [place] [address] | + + + | Home Phone | | + + + | Preferred Language | Unknown | + + + | Marital Status | Unknown | + + + | Synagogue Affiliation | Unknown | + + + | Race | Unknown | + + + | Ethnic Group | Unknown | + + + Author + + + | Author | [facility] | + + + | Organization | [facility] | + + + | Address | Unknown | + + + | Phone | Unavailable | + + + Care Team Providers + +------+ + | Care Bander And Cellophaner Machine Helper Name | Role | Phone | + +------+ + PCP | Unavailable | + +------+ + Encounter Details +--------+ + + + + | Date | Type | Department | Care Team | Description | +--------+ + + + + | 07/21/ | Abstract | [facility] | Clinic, Surgery | | | 2014 | | [facility] [address] | | | | | | [place] | | | | | | Mailcode: Juda | | | | | | [facility] and | | | | | | [facility] [address] | | | | | | [place], [place] | | | | | | [address] | | | | | | [phone] | | | +--------+ + + + [...]
--- OUTSIDE RECORDS SUMMARY | ~2020-01-25 | XMS | Encounter Summary ---
Demographics + + + | Address | [address] | | | [place] [address] | + + + | Home Phone [...] [place] | | | | | [address] | | + + + + + Care Team Providers + +------+ + | Care I&C Technician Name | Role | Phone | [...] | | cutaneous | Gerber Benson, | [place] | | | | | diffuse | MD [address] | [place], [place] | | | | | large cell | [address] | [address] | | | | | B-cell | [place], | Phone: | | | | | lymphoma | [place] [address] | [phone] | | | | | (HCC) | Phone: | Fax: | | | | | Procedures | [phone] | [phone] | | | | | PET CT Skull | Fax: | | | | | | Base To Mid | [phone] | | | | | | Thigh [...] + + | 07/21/ | Hospital | [facility] | Mohamud, | Primary cutaneous | | 2016 | Encounter | MED CTR PET SCAN | Gerber Benson MD [address] | diffuse large cell | | | | [address] [place] | [address] [place] | B-cell lymphoma | | | | [place] [address] | [place] [address] | ([facility]) | | | | [phone] | [phone] | | | | | | | [...] | | | | | [place] | | | | | | [address] | | | | | | | [...]
--- OUTSIDE RECORDS SUMMARY | ~2020-01-25 | XMS | Encounter Summary ---
Demographics + + + | Address | [address] | | | [place] [address] | + + + | Home Phone | | + + + | Preferred Language | Unknown | + + + | Marital Status | | + + + | Protestant Affiliation | 1013 | + + + | Race | Unknown | + + + | Ethnic Group | Unknown | + + + Author + + + | Author | [facility] | | | and [place] | + + + | Organization | [facility] | | | and [...] [place] | | | | | [address] | | + + + + + Care Team Providers + +------+ + | Care Cotton Farmer Name | Role | Phone | + [...] | | | | | | [place] [address] | [address] | | | | | | Phone: | Phone: | | | | | | [phone] | [phone] | | | | | | Fax: | Fax: | | | | | | [phone] | [phone] | +--------+ + + + + + Reason for Visit + + + | Reason | Comments | + + + | Follow-up | | + + + Encounter Details +--------+ + + + + | Date | Type | Department | Care Team | Description | +--------+ + + + + | 01/01/ | Hospital | [facility] | Mohamud, | Lymphedema of left | | 2017 | Encounter | [facility] CTR MEDICAL | Joaquim Benson MD [address] | lower extremity | | | | ONCOLOGY CLINIC [address] | [address] [place] | (Primary Dx); | | | | [address] [place] | [place] [address] | Diffuse large B-cell | | | | [place] [address] | [phone] | lymphoma of | | | | [phone] | | intra-abdominal | | | | [...] encounter Progress Notes Joaquim Mallory MD - 01/01/2017 8:44 AM PDTFormatting of this note might be differe nt from the original. Hematology/Oncology Progress Note [facility] [place] Pt. Name/Age/: Joaquim Leon Daniel Box 66 y.o. 1950 Med. Record Number: [id number] Date of admission: 01/01/2017 Identifying Statement: Joaquim Carolyn Sanchez Jr. is a 66 y.o. male from [address] [address] with Mixed Diffuse Large B-Cell/Follicular Lymphoma. The [...] lower extremity. CT abdomen/Pelvis with contrast 2016 ([facility]). Ex tensive periaortic lymphadenopathy (1.8 cm and 2.1 cm respectively), extensive adenopathy ex tending out along the left common iliac artery and encasing the left external iliac artery ( 4.4 cm) with compromise of the left external iliac vein. 2. Open laparotomy with LEFT ileal retroperitoneal lymph node biopsy ([facility], [facility]) June 242015. Specimen #[id number] ([facility]); Diffuse Large B-Cell lymph raciel, [...] September 04, 2016. 10. CT Abdomen/Pelvis at [facility] on September 12, 2016; Positive Response when [...] (PRIMA protocol). 14. Repeat CT scan at [place], [place] on December 01, [address] [...] also notable for the fact that Rios's precision machinist has prescribed Sineme t 10/100 for restless [...] these nails being extracted by his podi max and these are beginning to grow back. [...] Ma., Rebel, R.H., Andie Menezes., Michael Trejo., Vy Rodriguez., Dara, E.T., Fatoumata, P .P.: Toxicity And [...] Assessment and Plan. Results for DANIEL JOAQUIM Carolyn BOX ( ) as of 01/01/2017 18:09 Ref. 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 47, No. 6, pp 2235-6130. In the first article, an observational study [...] observational study, by Marques et al from [facility] th at reports neutropenia developed [...] 01/01/2017 Labs Lactate Dehydrogenase STAT, ONE TIME, Sun01/01/17 at 0814, For 1 occurrence OrderHistory Comprehensive [...] opriate to proceed with treatment with rituximab.JOAQUIM MALLORY MD. OrderHistory Plans for discharge (Not Released) [...] infusion, activate code blue and notify . OrderHissami MALLORY MD Portions of this chart may have been created with Dragon voice recognition software. Occasi onal wrong-word or [...] | | | | | [place] | | | | | | [address] | | | | | | | [...]
--- OUTSIDE RECORDS SUMMARY | ~2020-01-25 | XMS | Encounter Summary ---
Demographics + + + | Address | [address] | | | [place] [address] | + + + | Home Phone | | + + + | Preferred Language | Unknown | + + + | Marital Status | | + + + | Taoist Affiliation | 1013 | + + + [...] [place] | | | | | [address] | | + + + + + Care Team Providers + +------+ + | Care Director Of Officiating Name | Role | Phone | + [...] large b-cell | Gerber Benson, | [place] | | | | | lymphoma, | MD [address] | [place], | | | | | intra-abdomi | [address] | [place] [address] | | | | | nal lymph | [place], | Phone: | | | | | nodes (HCC) | [place] [address] | [phone] | | | | | Procedures | Phone: | Fax: | | | | | [place] | [phone] | [phone] | | | | | INJECTION, | Fax: | | | | | | FAMOTIDINE, | [phone] | | | | | | 20 MG KS | | | | | | | RITUXIMAB | | | | | | | INJECTION, | | | | | | | 100 MG [place] | | | | | | | LORAZEPAM | | | | | | | INJECTION, 2 | | | | | | | MG [place] | | | | | | | MEPERIDINE | | | | | | | HYDROCHL | | | | | | | /100 MG [place] | | | | | | | DIPHENHYDRAM | | | | | | | INE HCL | | | | | | | INJECTIO, 50 | | | | | | | MG [place] | | | | | | | METHYLPREDNI | | | | | | | SOLONE | | | | | | | INJECTION, | | | | | | | 125 MG [place] | | | | | | | DEXAMETHASON | | | | | | | E SODIUM | | | | | | | PHOS, 1 MG | | | | | | | KS NORMAL | | | | | | | SALINE | | | | | | | SOLUTION | | | | | | | INFUS, 500 | | | | | | | ML [place] | | | | | | | NORMAL | | | | | | | SALINE | | | | | | | SOLUTION | | | | | | | INFUS, 250 | | | | | | | ML [place] | | | | | | | STERILE | | | | | | | WATER/SALINE | | | | | | | , 10 ML [place] | | | | | | | CHEMOTHER, | | | | | | | IV PUSH,EA | | | | | | | ADD DRUG KS | | | | | | | CHEMOTHER, | | | | | | | IV INFUSION, | | | | | | | 1 HR KS | | | | | | | CHEMOTHER, | | | | | | | IV INFUSION, | | | | | | | EA HR KS | | | | | | | CHEMOTHER,NO | | | | | | | N-HORMONE | | | | | | | ANTI-NEOPL, | | | | | | | SUB-Q/IM [place] | | | | | | | [...] [place] | intra-abdominal | | | | [address], | [place] [address] | lymph nodes (HCC) | | | | [place] [address] | [phone] | | | | | [phone] | | | +--------+ + + + [...] | | | | | [place], [place] | | | | | | [address] | | | | | | | [...] | | Basophils | | K/uL | [facility] | | | | | | MEDICAL [...] + | [facility] | [address] | [place] | [phone] | | [facility] | | [address] | | | - LABORATORY | | [...] 109 | 70 - 109 mg/dL | [facility] [...] | 0.94 | 0.60 - 1.30 | [facility] | [...] | mL/min/1.73m2 | YUE | | | CROATIAN | RATE,ESTIMATED | | MEDICAL | | | | mL/min/1.78z1Yyrn than | | CENTER - | | [...] | 9.6 | 8.3 - 10.5 | [facility] | [...] + | BUN/Creatin | 18.1 | | [facility] | | | ine Ratio | | [...] [address] | [place] | [phone] | | [facility] | | [address] | | | - LABORATORY | | [...] [address] | [place] | [phone] | | [facility] | | [address] | | | - LABORATORY | | [...] mg, Oral, ONCE, Sun | | 18 9:32 | | | [...]
--- OUTSIDE RECORDS SUMMARY | ~2020-01-25 | XMS | Encounter Summary ---
Demographics + + + | Address | [address] | | | [place] [address] | + + + | Home Phone [...] [place] | | | | | [address] | | + + + + + Care Team Providers + +------+ + | Care Skilled Labor Name | Role | Phone | + [...] | | | | [address] | [place], [place] | | | | | | [place], [place] | [address] | | | | | | [address] | Phone: | | | | | | Phone: | [phone] | | | | | | [phone] | Fax: | | | | | | Fax: | [phone] | | | | | | [phone] | | + + + + + [...] | [address] | [place], [place] | positional vertigo), | | | | [place], [place] | [address] | unspecified | | | | [address] | | laterality (Primary | | | | [phone] | Michael Corbin, AUD | Dx); Sensorineural | | | | | [address] [place] | hearing loss (SNHL) | | | | | [address] [place], [place] | of both ears; | | | | | [address] | Tinnitus, bilateral | | | | [...] 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 [...] moderate sensorineural hearing loss b ilaterally. Speech reception manager thresholds were obtained at 25 dB HL [...] Isaura Richter and follow-up for vertigo with in. documented in this enc ounter Plan of Treatment +--------+---------+ + + + | Date | Type | Specialty | Care Team | Description | +--------+---------+ + + + | 05/19/ | Office | Cardiology | Karen Bansal, | | 2019 | Visit | Tru JOHNSON | | | | | | [place] | | | | | | [address] | | | | | | | [...]
--- OUTSIDE RECORDS SUMMARY | ~2020-01-25 | XMS | Encounter Summary ---
Demographics + + + | Address | [address] | | | [place] [address] | + + + | Home Phone | | + + + | Preferred Language | Unknown | + + + | Marital Status | | + + + | Jehovah'S Witness Affiliation | 1013 | + + + | Race | Unknown | + + + | Ethnic Group | Unknown | + + + Author + + + | Author | [facility] | | | and [place] | + + + | Organization | [facility] | | [...] [place] | | | | | [address] | | + + + + + Care Team Providers + +------+ + | Care Tapper Shank Name | Role | Phone | + +------+ + | Earle Chacko MD | PCP | | + +------+ + Encounter Details +--------+ + + + + | Date | Type | Department | Care Team | Description | +--------+ + + + + | 05/20/ | Hospital | [facility] | Mohamud, | Diffuse large B-cell | | 2018 | Encounter | [facility] | Joaquim Benson MD [address] | lymphoma of | | | | [facility] [address] [place] | intra-abdominal | | | | [address] [place] | [place] [address] | lymph nodes (HCC) | | | | [place] [address] | [phone] | | | | | [phone] | | | +--------+ + + + [...] nt from the original. Hematology/Oncology Progress Note [place], [place] Pt. Name/Age/: Joaquim Sanchez Jr. 67 y.o. 1950 [facility]. Record Number: [id number] Date of admission: 05/20/2018 The patient's primary care provider is Kelsey Quintanilla MD. Identifying Statement: Joaquim Sanchez Jr. is a 67 y.o. male from [address] [address] with Mixed Diffuse Large B-Cell/Follicular Lymphoma in [...] node biopsy (Praveen, ESTEE) June 242015. Specimen #[id number] ([facility]); Diffuse Large B-Cell lymph raciel, germinal center [...] September 04, 2016. 10. CT Abdomen/Pelvis at [facility] on September 12, 2016; Positive [...] (PRIMA protocol). 14. Repeat CT scan at [facility], [place], [place] on December 01, [address] [...] mm 15. Repeat CT scan at [facility] on April 18, 2017 demonstrated decreased [...] [address] scan at [facility] on November 21, 2017 demonstrated decreased [...] exam is negative for any signs of wavziyk-yhcjx-hzvjgjnqhto. 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 Recurrent upper respiratory tract infection. Plan; Proceed with Cycle #11 of maintenance rituximab today. Return on July 15, 2018 for his last dose of maintenance rituximab, to be followed by re peat CT of abdomen/pelvis to monitor ongoing disease status. RiosMara and I engaged in a discussion regarding [...] in the Assessment and Plan. Results for DANIEL, JOAQUIM Carolyn BOX ( ) as of 05/25/2018 [...] 2006 , Vol. 47, No. 6, pp 4558-3068. In the first article, an observational study [...] observational study, by Marques et al from [facility] th at reports neutropenia developed in [...] this chart may have been created with [employer] voice recognition software. Occasi onal wrong-word or sound-alike substitutions may have occurred due to the inherent vlaencia itations of voice recognition software. Please read [...] [place] | | | | | | [address] | | | | | | | | +--------+---------+ + + + documented as of this encounter Visit Diagnoses + + | Diagnosis | + + | Diffuse large B-cell lymphoma of intra-abdominal lymph nodes (HCC) Other malignant | | lymphomas of intra-abdominal lymph nodes | + + documented in this encounter
--- OUTSIDE RECORDS SUMMARY | ~2020-01-25 | XMS | Encounter Summary ---
Demographics + + + | Address | [address] | | | [place] [address] | + + + | Home Phone [...] [place] | | | | | [address] | | + + + + + Care Team Providers + +------+ + | Care Admissions Specialist Name | Role | Phone | [...] antineoplast | MD [address] | | | | | ic | [address] | [place], | | | | | chemotherapy | [place], | [place] [address] | | | | | Diffuse | [place] [address] | Phone: | | | | | large b-cell | Phone: | [phone] | | | | | lymphoma, | [phone] | Fax: | | | | | intra-abdomi | Fax: | [phone] | | | | | nal lymph | [phone] | | | | | | nodes (HCC) | | | | | | | Procedures | | | | | | | [place] MED NUTR | | | | | [...] [address] | | | | | | [address] [place], | | | | | | [place] [address] | | | | | | [phone] | | | +--------+ + + + [...] [place] | | | | | | [address] | | | | | | | [...]
--- OUTSIDE RECORDS SUMMARY | ~2020-01-25 | XMS | Encounter Summary ---
Demographics + + + | Address | [address] | | | [place] [address] | + + + | Home Phone | | + + + | Preferred Language | Unknown | + + + | Marital Status | | + + + | Judaism Affiliation | 1013 | + + + | Race | Unknown | + + + | Ethnic Group | Unknown | + + + Author + + + | Author | [facility] | | | and [place] | + + + | Organization | [facility] | | [...] [place] | | | | | [address] | | + + + + + Care Team Providers + +------+ + | Care Fairing Worker Name | Role | Phone | + +------+ + | Kelsey Quintanilla MD | PCP | | + +------+ + Encounter Details +--------+---------+ + + + | Date | Type | Department | Care Team | Description | +--------+---------+ + + + | 10/22/ | Office | [facility] | Isaura Richter | Sensorineural | | 2020 | Visit | AUDIOLOGY [address] | [address], [place] | hearing loss (SNHL) | | | | [address] | [address] [place], [place] | of both ears | | | | [place], [place] | [address] | (Primary Dx) | | | | [address] | | | | | | [phone] | | | +--------+---------+ + + + [...] documented as of this encounter Progress Notes Isaura Richter - 10/22/2019 11:00 AM PSTHEARING AID CONSULT HEARING EVALUATION WITHIN 6 MONTHS: 10/14/19 SPECIFIC NEEDS: 1.) Rechargeable 2.) Hearing soft and average speech 3.) 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 RECOMMENDATION: Phonak Aideo M90-R COST: $1850.00/ea. ACCESSORIES: Not interested in accessories Went over [employer] listening environments and connectivity interests. He's a pretty active yoko and tech savvy. DEMO: Phonak Audeo M90-312, 2M mushroom press operator, medium open domes, w/o retention Streamed with his phone while in clinic and received a call to practice the Phone Call mode . He really likes the aids. Rios wants to do his research and then if/when he decides to purchase, he will call and ta lk with me directly to place the order. If/when he wants me to order: Audeo M90-R, 2xS mushroom press operator, medium open domes w/o retention Explained we just need the audio to be within [address] campos documented in this encou nter Plan of Treatment +--------+---------+ + + + | Date | Type | Specialty | Care Team | Description | +--------+---------+ + + + | 05/19/ | Office | Cardiology | Karen Bansal, | | | 2019 | Visit | | MD Patricia JOHNSON | | | | | | [address] [place], [place] | | | | | | [address] | | | | | | | | +--------+---------+ + + + documented as of this encounter Visit Diagnoses + + | Diagnosis | + + | Sensorineural hearing loss (SNHL) of both ears - Primary | + + documented in this encounter"
--- OUTSIDE RECORDS SUMMARY | ~2020-01-25 | XMS | Encounter Summary ---
Demographics + + + | Address | [address] | | | [place] [address] | + + + | Home Phone | | + + + | Preferred Language | Unknown | + + + | Marital Status | | + + + | Taoism Affiliation | [id number] | + + + | Race | Unknown | + + + | Ethnic Group | Unknown | + + + Author + + + | Author | [facility] | | | and [place] | + + + | Organization | [facility] | | | and [place] | + + + | Address | Unknown | + + + | Phone | Unavailable | + + + Support + + + + + | Name | Relationship | Address | Phone | + + + + + | Maradivya Justicell | ECON | [address] | | | | | [place] | | | | | [address] | | + + + + + Care Team Providers + +------+ + | Care Canal Equipment Maintenance Supervisor Name | Role | Phone | + +------+ + PCP | Unavailable | + +------+ + Encounter Details +--------+ + + + + | Date | Type | Department | Care Team | Description | +--------+ + + + + | 02/26/ | Hospital | [facility] | Zaheer Martins MD | NSTEMI (non-ST | | 2014 - | Encounter | [facility] | [address] | elevated myocardial | | | | CLINICAL DECISION | [place] [address] | infarction) (HCC); | | 02/27/ | | [address] | [phone] | Chest pain, | | 2013 | | [place], [place] | | unspecified; CPAP | | | | [address] | | (continuous positive | | | | [phone] | | airway pressure) | | | | | | dependence | +--------+ + + + + Social [...] + + documented as of this encounter Discharge Summaries Charo Guerrero MD - 02/27/2014 2:09 PM PDTFormatting of this note might be different f rom the original. Discharge Summaries by Charo Guerrero MD at 02/27/14 7181 Author: Charo Guerrero MD Service: Hospitalist Author Type: Physician Filed: 02/27/14 1413 Date of Service: 02/27/14 1402 Status: Signed Mercerizing Range Controller: Charo Guerrero MD (Physician) [facility] Service: Hospitalist Discharge Summary Date of Admission: 02/26/2014 Date of Discharge: 02/27/2014 Discharge Provider: Charo Guerrero MD Treatment Team: Admitting Provider: Zaheer Martins MD Discharge Diagnoses: Active Problems: NSTEMI (non-ST elevated myocardial infarction) Chest pain, unspecified GERD (gastroesophageal reflux disease) CPAP (continuous positive airway pressure) dependence Resolved Problems: * No resolved hospital problems. * BRIEF HISTORY OF PRESENTATION: 63/M with hx of stroke with no residuals, DUNCAN on CPAP who presented with chest pain. Pain w as retrosternal, 03/03 with radiation to L arm and wrist. + Diaphoresis and dizziness. Pain h as been ongoing for the past 3-4 days. He was seen at [facility] and his troponin w as 0.234 hence the transfer to [facility]. HOSPITAL COURSE: NSTEMI s/p cath by Dr. Gibbs. Pt had stent placed, cath report pending. Cont plavix for a year and ASA daily indefinitely. Ff-up with Dr. 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 Advised re weight loss and exercise. Pt and his seem to be eager to make lifestyle changes. Valerie benton requested to come in before pt is discharged as they had a lot of questions about di et changes. Start lopressor and lisinopril for elevated BP. Start statin. Pt is discharged i mproved and stable. All of their questions have been addressed. Past Medical History Diagnosis Date Stroke GERD (gastroesophageal reflux disease) Sleep apnea CPAP at night Past Surgical History Procedure Date Cardiac catheterization 2001 No Known Allergies No prescriptions prior to admission DISCHARGE EXAM Vital Signs: BP 143/85 | Pulse 62 | Temp 97.7 F (36.5 C) (Oral) | Resp 18 | Ht 1.88 m (6' 2") | Wt 1 38.801 kg (306 lb) | BMI 39.27 kg/m2 | SpO2 97% Physical Exam Body mass index is 39.27 kg/(m^2). Constitutional: Alert and oriented to person, place and time. Appears well developed and we ll nourished. HEENT: 3mm pupils, moist mucous membranes, pink conjunctivae and anicteric sclerae. No cerv ical lymphadenopathy. Cardiovascular: Normal rate and rhythm. Normal heart sounds with S1 and S2. No murmurs, gal lops or rubs. No chest wall tenderness. Pulmonary: Patient is able to speak in full sentences. Breath sounds are clear bilaterally. No wheezing or rales. Abdominal: Soft and non-tender. Bowel sounds are present. No rebound or guarding. No palpab le masses. No fluid wave. Extremities: No edema or cyanosis. R wrist dressed, no hematoma. Neurological: No focal neurologic signs. Skin: Warm and dry. No rashes or open wounds. Psychiatric: Normal mood and affect. Normal judgment and behavior. DATA Results Procedure Component Value Units Date/Time Basic metabolic panel [[id number]] Collected:02/27/14539 Specimen Information:Blood Updated:02/27/14720 SODIUM 137 mmol/L POTASSIUM 4.2 mmol/L CHLORIDE 105 mmol/L CO2 27 mmol/L ANION GAP AGAP 9 mmol/L GLUCOSE 98 mg/dL BUN 16 mg/dL CREATININE 0.96 mg/dL BUN/CREAT 17 CALCIUM 9.3 mg/dL EGFR >60 mL/min/1.73m2 Lipid panel [[id number]] (Abnormal) Collected:02/27/14539 Specimen Information:Blood Updated:02/27/14720 CHOLESTEROL 150 mg/dL Triglycerides 182 (H) mg/dL HDL CHOL 34 (L) mg/dL LDL CALC 80 mg/dL Magnesium [[id number]] Collected:02/27/14539 Specimen Information:Blood Updated:02/27/14720 MAGNESIUM 2.1 mg/dL Phosphorus [[id number]] Collected:02/27/14539 Specimen Information:Blood Updated:02/27/14720 PHOSPHORUS 3.6 mg/dL CBC w/auto diff (reflex to manual) [[id number]] (Abnormal) Collected:02/27/14539 Specimen Information:Blood Updated:02/27/14657 WBC 4.2 K/uL RBC 4.33 M/uL HGB 12.5 (L) g/dL HCT 37.3 (L) % MCV 86.1 fl MCH 28.9 pg MCHC 33.5 g/dL RDW SD 47.7 fl PLT 123 (L) K/uL MPV 8.7 fl DIFF TYPE AUTOMATED NEUTROPHILS 59.9 % LYMPHOCYTES 30.6 % MONOCYTES 7.2 % EOSINOPHILS 1.9 % BASOPHILS 0.4 % NEUTROPHILS ABS 2.5 K/uL LYMPHOCYTES ABS 1.3 K/uL MONOCYTES ABS 0.3 K/uL EOSINOPHILS ABS 0.1 K/uL BASOPHILS ABS 0.0 K/uL MORPHOLOGY POC ACT, arterial [[id number]] (Abnormal) Collected:02/26/14 2249 POC ACT 198 (H) seconds Updated:02/26/14 2303 CK MB [[id number]] (Abnormal) Collected:02/26/14 1725 MMB 5.4 (H) ng/mL Updated:02/26/14 1853 CK-MB Index 2.4 CPK [[id number]] Collected:02/26/14 172 Specimen Information:Blood Updated:02/26/14 1853 CPK 228 U/L Troponin I [[id number]] (Abnormal) Collected:02/26/14 1725 Specimen Information:Blood Updated:02/26/14 1853 TROPONIN I 1.05 (HH) ng/mL Troponin I [[id number]] (Abnormal) Collected:02/26/14 1151 Specimen Information:Blood Updated:02/26/14 1238 TROPONIN I 0.855 (HH) ng/mL CK MB [[id number]] (Abnormal) Collected:02/26/14 1151 MMB 5.9 (H) ng/mL Updated:02/26/14 1238 CK-MB Index 2.5 CPK [[id number]] Collected:02/26/14 1151 Specimen Information:Blood Updated:02/26/14 1238 CPK 239 U/L Troponin I [[id number]] (Abnormal) Collected:02/26/14 0956 Specimen Information:Blood Updated:02/26/14 1050 TROPONIN I 0.788 (HH) ng/mL CPK [[id number]] Collected:02/26/14 09 Specimen Information:Blood Updated:02/26/14 1050 CPK 257 U/L CK MB [[id number]] (Abnormal) Collected:02/26/14 0956 Specimen Information:Blood Updated:02/26/14 1050 MMB 5.3 (H) ng/mL CK-MB Index 2.1 Results No Results found for the last 72 hours. Disposition: home Condition: stable and improved Code Status: Full Code Discharge Instructions Basic metabolic panel Standing Status: Future Standing Exp. Date: 02/27/15 CBC w/manual diff Standing Status: Future Standing Exp. Date: 02/27/15 Follow up: Hodan Chacko MD [address], [address] [place] [address] In 1 week Dawson Gibbs MD [address] [facility] [address] [facility] Emergency Department [address] [facility] [address] Medication List As of 02/27/2014 2:09 PM START taking these medications aspirin 81 MG chewable tablet QTY: 30 tablet Refills: 11 Take 1 tablet by mouth daily with breakfast. atorvastatin 80 MG tablet QTY: 1 tablet Refills: 0 Commonly known as: LIPITOR Take 1 tablet by mouth once. clopidogrel 75 MG tablet QTY: 30 tablet Refills: 11 Commonly known as: PLAVIX Take 1 tablet by mouth daily. lisinopril 10 MG tablet QTY: 30 tablet Refills: 11 Commonly known as: ZESTRIL Take 1 tablet by mouth daily. metoprolol 25 MG tablet QTY: 60 tablet Refills: 11 Commonly known as: LOPRESSOR Take 1 tablet by mouth 2 (two) times daily. nitroGLYCERIN 0.4 MG SL tablet QTY: 90 tablet Refills: 0 Commonly known as: NITROSTAT Place 1 tablet under the tongue every 5 (five) minutes as needed for Chest pain. 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 You may get these medications from any pharmacy. aspirin 81 MG chewable tablet atorvastatin 80 MG tablet clopidogrel 75 MG tablet lisinopril 10 MG tablet metoprolol 25 MG tablet nitroGLYCERIN 0.4 MG SL tablet Discharge took >30 minutes, to include final examination, discussion of admission, and prep aration of prescriptions, instructions for on-going care, follow-up and documentation of dis charge summary. Charo Guerrero MD 02/27/2014 documente d in this encounter Progress Notes Dawson Gibbs MD - 02/27/2014 8:46 AM PDTFormatting of this note might be different from t he original. Progress Notes by Dawson Gibbs MD at 02/27/14 0858 Author: Dawson Gibbs MD Service: Cardiology Author Type: Physician Filed: 03/01/14 2152 Date of Service: 02/27/1446 Status: Signed Mercerizing Range Controller: Dawson Gibbs MD (Physician) Related Notes: Original Note by Dawson Gibbs MD (Physician) filed at 02/27/14 0851 [facility] Service: Cardiology/[facility] Progress Note RE: Joaquim Sanchez : 1950 DATE OF SERVICE: 02/26/2014 PROVIDER:DAWSON GIBBS Pt is seen for F/U on: ACS SUBJECTIVE: Did well overnight after undergoing coronary angiography via right radial artery. The proce dure was slightly challenging because of very tortuous ascending aorta/innominate artery con nection. Regardless, he was found to have 2-vessel coronary artery disease with mild LAD and subtotal occlusion of mid RCA which was stented with drug-eluting stent. He is having no ch est pain this morning. CURRENT MEDICATIONS: Scheduled Meds: aspirin 81 mg Oral Daily with breakfast atorvastatin 80 mg Oral Once cetirizine 10 mg Oral Daily [COMPLETED] clopidogrel 600 mg Oral Once clopidogrel 75 mg Oral Daily enoxaparin 1 mg/kg Subcutaneous Q12H famotidine 20 mg Oral BID Or famotidine 20 mg Intravenous BID heparin (porcine) lidocaine metoprolol 25 mg Oral BID nitroGLYCERIN omeprazole 20 mg Oral QAM AC ALLERGIES: No Known Allergies PHYSICAL EXAM: BP 161/82 | Pulse 61 | Temp 98.4 F (36.9 C) (Oral) | Resp 18 | Ht 1.88 m (6' 2") | Wt 138.801 kg (306 lb) | BMI 39.27 kg/m2 | SpO2 98% Intake/Output Summary (Last 24 hours) at 02/27/14 0846 Last data filed at 02/27/14 0813 Gross per 24 hour Intake 1881 ml Output 2675 ml Net -794 ml General Appearance: Alert, oriented, cooperative, no distress, appears stated age HEENT: No xanthelasmas. Extraocular movements were intact. No jaundice. Pupiles round and reactive. NECK: no JVD, lymphadenopathy. Trachea is at midline. Thyroid is not palpable. CARDIAC: There is normal S1 and S2. No added sounds, murmurs, gallop, or rub. CHEST: Normal bilateral symmetrical chest excursion. Good bilateral air entry with no crack les or wheezing. No evidence of dullness. ABDOMEN: obese, soft and lax. No tenderness. No palpable organs. Active bowel sounds. EXTREMITIES: No lower extremities edema. Right radial pulse intact. NEURO: Alert and oriented times three with no focal deficit. Cranial nerves are grossly no rmal. SKIN: No bruises or rash. Lab Review Lab Results Component Value Date NA 137 02/27/2014 K 4.2 02/27/2014 CL 105 02/27/2014 CO2 27 02/27/2014 BUN 16 02/27/2014 CREATININE 0.96 02/27/2014 Lab Results Component Value Date CKTOTAL 228 02/26/2014 CKMB 5.4* 02/26/2014 CKMBINDEX 2.4 02/26/2014 TROPONINI 1.05* 02/26/2014 Lab Results Component Value Date WBC 4.2 02/27/2014 HGB 12.5* 02/27/2014 HCT 37.3* 02/27/2014 MCV 86.1 02/27/2014 PLT 123* 02/27/2014 Lab Results Component Value Date CHOL 150 02/27/2014 TRIGSCR 182* 02/27/2014 LDLCALC 80 02/27/2014 GLUF 98 02/27/2014 Imaging Echocardiogram: 1. Overall left ventricular systolic function is normal with, an EF between 60 - 65 %. 2. There is mild concentric left ventricular hypertrophy. 3. The left atrium is moderately dilated. 4. Mild mitral regurgitation is present. 5. Right ventricular systolic pressure (pulmonary artery systolic pressure) is normal at < 35 mmHg. Cath: 2 Vessel CAD, mild LAD, subtotal RCA, stented with 3.5X 16 mm EDGARD ASSESSMENT: 1. Acute coronary syndrome with unstable angina. 2. Two-vessel coronary artery disease most significantly affecting mid to distal RCA with s ubtotal occlusion. 3. Status post stenting mid to distal RCA with a 3.5 x 16-mm Promus Element drug-eluting st ent. 4. Normal left ventricular systolic function. 5. Obesity. 6. Sleep apnea. 7. Hyperlipidemia. PLAN: Joaquim is doing well after his procedure. I mentioned to him that he needed to take Plavix and aspirin for a year and after that aspirin indefinitely. He should control his lipid prof ile with high dose of statin. Beta-blockers continued as well. Recommended to him to kendra frankel. I will be happy to follow him here in the [facility]; but the fact he lives in [place], I gave him also the option to establish care there. He can be sent home today. DAWSON GIBBS MD 02/27/2014 8:46 AM onversion Transaction, Provider Unknown - 02/26/2014 4:24 PM PDTFormatting of this note might be different from t brii original. Therapy Progress Note by ZANE Cesar at 02/26/14 1624 Author: ZANE Cesar Service: (none) Author Type: Massage Therapist Filed: 02/26/141623 Date of Service: 02/26/141623 Status: Signed Mercerizing Range Controller: ZANE Cesar (Massage Therapist) 02/26/14 1623 Massage Therapy Interventions Locations Back;Neck;Shoulder Massage Therapy Technique Effleurage;Petrissage;Niuean massage;Trigger point Response to treatment Decreased pain;Decreased muscle tension Goals Short Term Goal #1 Decreased muscle tension;Decreased pain;Increase comfort;Increased relax ation onver christopher Transaction, Provider Unknown - 02/26/2014 11:16 AM PDT Progress Notes by Joi Gonzalez RPH at 02/26/14 1116 Author: Joi Gonzalez RPH Service: (none) Author Type: Pharmacist Filed: 02/26/14 1116 Date of Service: 02/26/14 1116 Status: Signed Mercerizing Range Controller: Joi Gonzalez RPH (Pharmacist) Renal Dosing Monitoring: Joaquim Sanchez 63 y.o. male Pharmacy dosing for renal function per Dr. Martins No current SCr available. Plan per protocol: Pharmacy will continue monitoring patient for appropriate dosing per renal function. 02/26/2014 11:15 AM Pharmacist: Joi Gonzalez onver christopher Transaction, Provider Unknown - 02/26/2014 10:28 AM PDT Case Management by LOR Ron at 02/26/14 1028 Author: LOR Ron Service: (none) Author Type: [employer] Filed: 02/26/14 1031 Date of Service: 02/26/14 1028 Status: Signed Mercerizing Range Controller: LOR Ron ([employer]) 02/26/14 1025 Discharge Planning Evaluation Admitting Diagnosis NStemi Readmission No Living Arrangements Spouse/significant other (Mara Mejiaesell [phone]) Type of Residence Private residence House type House 2 story Steps to enter 2 Independent with ADL's Yes Independent with Mobility Yes Home Care Services No Mental Status Oriented Resources Transportation issues Yes Prescription Plan Yes Name of Pharmacy [facility] in [place] Previous home health equipment No Vascular access device No Ostomy/Drains/Appliances No Anticipated Disposition Facility Type Other (Comment) (Return Home) Met with: patient and his and discussed discharge planning, Pt is a 63 y.o., male who lives in [place]. Patient's PCP is: HODAN CHACKO Patient's insurance: [employer] PPO Coverage concerns: None Medication coverage/concerns: Rx coverage Community resources utilized / needed: TBD Assistance in transportation: can transport Identification of any specific education / training: TBD Barriers to Discharge / Alternative housing needed: None at this time Anticipated DCP: return home Gladys HOROWITZ docume nted in this encounter Plan of Treatment +--------+---------+ + + + | Date | Type | Specialty | Care Team | Description | +--------+---------+ + + + | 05/19/ | Office | Cardiology | Karen Bansal, | | | 2019 | Visit | | MD Patricia JOHNSON | | | | | | [facility] | | | | | | [id number] | | | | | | | | +--------+---------+ + + + documented as of this encounter Procedures + +--------+ + + + | Procedure Name | Priori | Date/Time | Associated Diagnosis | Comments | | | ty | | | | + +--------+ + + + | ECG 12 LEAD | Routin | 02/27/2014 | | Results for this | | | e | 5:55 AM | | procedure are in the | | | | PDT | | results section. | + +--------+ + + + | EXTERNAL LAB: CBC | Routin | 02/27/2014 | | Results for this | | | e | 5:40 AM | | procedure are in the | | | | PDT | | results section. | + +--------+ + + + | LIPID PANEL | Routin | 02/27/2014 | | Results for this | | | e | 5:40 AM | | procedure are in the | | | | PDT | | results section. | + +--------+ + + + | PHOSPHORUS | Routin | 02/27/2014 | | Results for this | | | e | 5:40 AM | | procedure are in the | | | | PDT | | results section. | + +--------+ + + + | MAGNESIUM | Routin | 02/27/2014 | | Results for this | | | e | 5:40 AM | | procedure are in the | | | | PDT | | results section. | + +--------+ + + + | BASIC METABOLIC | Routin | 02/27/2014 | | Results for this | | PANEL | e | 5:40 AM | | procedure are in the | | | | PDT | | results section. | + +--------+ + + + | ECG 12 LEAD | Routin | 02/27/2014 | | Results for this | | | e | 12:09 AM | | procedure are in the | | | | PDT | | results section. | + +--------+ + + + | ACTIVATED CLOTTING | Routin | 02/26/2014 | | Results for this | | TIME | e | 10:49 PM | | procedure are in the | | | | PDT | | results section. | + +--------+ + + + | TROPONIN I | Routin | 02/26/2014 | | Results for this | | | e | 5:25 PM | | procedure are in the | | | | PDT | | results section. | + +--------+ + + + | CK-MB | Routin | 02/26/2014 | | Results for this | | | e | 5:25 PM | | procedure are in the | | | | PDT | | results section. | + +--------+ + + + | CK TOTAL | Routin | 02/26/2014 | | Results for this | | | e | 5:25 PM | | procedure are in the | | | | PDT | | results section. | + +--------+ + + + | ECHO COMPLETE | Routin | 02/26/2014 | | Results for this | | | e | 1:40 PM | | procedure are in the | | | | PDT | | results section. | + +--------+ + + + | TROPONIN I | Routin | 02/26/2014 | | Results for this | | | e | 11:51 AM | | procedure are in the | | | | PDT | | results section. | + +--------+ + + + | CK-MB | Routin | 02/26/2014 | | Results for this | | | e | 11:51 AM | | procedure are in the | | | | PDT | | results section. | + +--------+ + + + | CK TOTAL | Routin | 02/26/2014 | | Results for this | | | e | 11:51 AM | | procedure are in the [...] | + +--------+ + + + | TROPONIN I | Routin | 02/26/2014 | | Results for this | | | e | 9:56 AM | | procedure are in the | | | | PDT | | results section. | + +--------+ + + + | CK-MB | Routin | 02/26/2014 | | Results for this | | | e | 9:56 AM | | procedure are in the | | | | PDT | | results section. | + +--------+ + + + | CK TOTAL | Routin | 02/26/2014 | | Results for this | | | e | 9:56 AM | | procedure are in the | | | | PDT | | results section. | + +--------+ + + + | ECG 12 LEAD | Routin | 02/26/2014 | | Results for this | | | e | 5:30 AM | | procedure are in the | | | | PDT | | results section. | + +--------+ + + + | XR CHEST 1 VIEW | Routin | 02/26/2014 | | Results for this | | | e | 12:23 AM | | procedure are in the | | | | PDT | | results section. | + +--------+ + + + documented in this encounter Results ECG 12 lead (02/27/2014 5:55 AM PDT) + + + + + + | Component | Value | Ref Range | Performed | Pathologist | | | | | At | Signature | + + + + + + | DIAGNOSIS: | Suspect arm lead | | EXTERNAL | | | | reversal, interpretation | | LAB | | | | assumes no | | | | | | reversalUnusual P axis, | | | | | | possible ectopic atrial | | | | | | bradycardiaLateral | | | | | | infarct , age | | | | | | undeterminedInferior | | | | | | infarct (cited on or | | | | | | before | | | | | | 26-FEB-2014)Abnormal | | | | | | ECGWhen compared with | | | | | | ECG of 26-FEB-2014 | | | | | | 05:30,Ectopic atrial | | | | | | rhythm has replaced | | | | | | Sinus rhythmQuestionable | | | | | | change in QRS | | | | | | axisNon-specific change | | | | | | in ST segment in Lateral | | | | | | leadsConfirmed by | | | | | | DAWSON GIBBS ([id number]) on | | | | | | 02/27/2014 10:13:02 PM | | | | + + + + + + + + | Specimen | + + | | + + + + + | Narrative | Performed At | + + + | Historically converted procedure from [facility] environment | EXTERNAL LAB | + + + + +---------+ + + | Performing | Address | City/State/Zipcode | Phone Number | | Organization | | | | + +---------+ + + | EXTERNAL LAB | | | | + +---------+ + + External Lab: JACQUI (02/27/2014 5:40 AM PDT) + + + + + + | Component | Value | Ref Range | Performed | Pathologist | | | | | At | Signature | + + + + + + | WBC | 4.2Comment: Testing | 3.8 - 11.0 K/uL | EXTERNAL | | | | performed at [facility], [address] | | LAB | | | | [address], | | | | | | [place] [address] | | | | + + + + + + | Red Blood | 4.33Comment: Testing | 4.20 - 5.70 | EXTERNAL | | | Cells | performed at [facility], [address] | M/uL | LAB | | | Counted | [address], | | | | | | [place] [address] | | | | + + + + + + | Hemoglobin | 12.5 (L)Comment: Testing | 13.2 - 17.0 | EXTERNAL | | | | performed at [facility], [address] | g/dL | LAB | | | | [address], | | | | | | [place] [address] | | | | + + + + + + | Hematocrit, | 37.3 (L)Comment: Testing | 39.0 - 50.0 % | EXTERNAL | | | POC | performed at [facility], [address] | | LAB | | | | [address], | | | | | | [place] [address] | | | | + + + + + + | MCV | 86.1Comment: Testing | 80.0 - 100.0 fl | EXTERNAL | | | | performed at [facility], [address] | | LAB | | | | [address], | | | | | | [place] [address] | | | | + + + + + + | MCH | 28.9Comment: Testing | 27.0 - 34.0 pg | EXTERNAL | | | | performed at [facility], [address] | | LAB | | | | [address], | | | | | | [place] [address] | | | | + + + + + + | MCHC | 33.5Comment: Testing | 32.0 - 35.5 | EXTERNAL | | | | performed at [facility], [address] | g/dL | LAB | | | | [address], | | | | | | [place] [address] | | | | + + + + + + | RDW-CV | 47.7Comment: Testing | 37 - 53 fl | EXTERNAL | | | | performed at [facility], [address] | | LAB | | | | [address], | | | | | | [place] [address] | | | | + + + + + + | Platelet | 123 (L)Comment: Testing | 150 - 400 K/uL | EXTERNAL | | | Count | performed at [facility], [address] | | LAB | | | Plasma | [address], | | | | | | [place] [address] | | | | + + + + + + | MPV | 8.7Comment: Testing | fl | EXTERNAL | | | | performed at [facility], [address] | | LAB | | | | [address], | | | | | | [place] [address] | | | | + + + + + + | Differentia | AUTOMATEDComment: | | EXTERNAL | | | l Type | Testing performed at | | LAB | | | | [facility], [address] | | | | | | [place] | | | | | | [address] | | | | + + + + + + | % Segmented | 59.9Comment: Testing | % | EXTERNAL | | | | performed at [facility], [address] | | LAB | | | Neutrophils | [address], | | | | | | [place] [address] | | | | + + + + + + | % | 30.6Comment: Testing | % | EXTERNAL | | | Lymphocytes | performed at [facility], [address] | | LAB | | | | [address], | | | | | | [place], [place] [address] | | | | + + + + + + | % Monocytes | 7.2Comment: Testing | % | EXTERNAL | | | | performed at [facility], [address] | | LAB | | | | [address], | | | | | | [place], [place] [address] | | | | + + + + + + | % | 1.9Comment: Testing | % | EXTERNAL | | | Eosinophils | performed at [facility], [address] | | LAB | | | | [address], | | | | | | [place] [address] | | | | + + + + + + | % Basophils | 0.4Comment: Testing | % | EXTERNAL | | | | performed at [facility], [address] | | LAB | | | | [address], | | | | | | [place] [address] | | | | + + + + + + | Absolute | 2.5Comment: Testing | 1.9 - 7.4 K/uL | EXTERNAL | | | Segmented | performed at [facility], [address] | | LAB | | | Neutrophils | [address], | | | | | | [place] [address] | | | | + + + + + + | Absolute | 1.3Comment: Testing | 1.0 - 3.9 K/uL | EXTERNAL | | | Lymphocytes | performed at [facility], [address] | | LAB | | | | [address], | | | | | | [place] [address] | | | | + + + + + + | Absolute | 0.3Comment: Testing | 0 - 0.8 K/uL | EXTERNAL | | | Monocytes | performed at [facility], [address] | | LAB | | | | [address], | | | | | | [place] [address] | | | | + + + + + + | Absolute | 0.1Comment: Testing | 0 - 0.5 K/uL | EXTERNAL | | | Eosinophils | performed at [facility], [address] | | LAB | | | | [address], | | | | | | [place] [address] | | | | + + + + + + | Absolute | 0.0Comment: Testing | 0 - 0.1 K/uL | EXTERNAL | | | Basophils | performed at [facility], [address] | | LAB | | | [address], | | | | | | [place] [address] | | | | + + + + + + | RBC | Comment: 1+ | | EXTERNAL | | | Morphology | AnisocytosisTesting | | LAB | | | | performed at [facility], [address] | | | | | | [address], | | | | | | [place] [address] | | | | + + + + + + + + | Specimen | + + | Blood specimen | | (specimen) | + + + +---------+ + + | Performing | Address | City/State/Zipcode | Phone Number | | Organization | | | | + +---------+ + + | EXTERNAL LAB | | | | + +---------+ + + Phosphorus (02/27/2014 5:40 AM PDT) + + + + + + | Component | Value | Ref Range | Performed | Pathologist | | | | | At | Signature | + + + + + + | PHOSPHORUS | 3.6Comment: Testing | 2.3 - 4.8 mg/dL | EXTERNAL | | | | performed at [facility], [address] | | LAB | | | | [address], | | | | | | [place] [address] | | | | + + + + + + + + | Specimen | + + | Blood specimen | | (specimen) | + + + +---------+ + + | Performing | Address | City/State/Zipcode | Phone Number | | Organization | | | | + +---------+ + + | EXTERNAL LAB | | | | + +---------+ + + Magnesium (02/27/2014 5:40 AM PDT) + + + + + + | Component | Value | Ref Range | Performed | Pathologist | | | | | At | Signature | + + + + + + | Magnesium | 2.1Comment: Testing | 1.7 - 2.4 mg/dL | EXTERNAL | | | | performed at [facility], [address] | | LAB | | | | [address], | | | | | | [place] [address] | | | | + + + + + + + + | Specimen | + + | Blood specimen | | (specimen) | + + + +---------+ + + | Performing | Address | City/State/Zipcode | Phone Number | | Organization | | | | + +---------+ + + | EXTERNAL LAB | | | | + +---------+ + + Lipid Panel (02/27/2014 5:40 AM PDT) + + + + + + | Component | Value | Ref Range | Performed | Pathologist | | | | | At | Signature | + + + + + + | Cholesterol | 150Comment: Testing | mg/dL | EXTERNAL | | | | performed at [facility], [address] | | LAB | | | | [address], | | | | | | [place] [address] | | | | + + + + + + | Triglycerid | 182 (H)Comment: Testing | mg/dL | EXTERNAL | | | es | performed at [facility], [address] | | LAB | | | | [email or web address], | | | | | | [place] [address] | | | | + + + + + + | HDL | 34 (L)Comment: Testing | mg/dL | EXTERNAL | | | | performed at [facility], [address] | | LAB | | | | [address], | | | | | | [place] [address] | | | | + + + + + + | LDL, | 80Comment: Testing | mg/dL | EXTERNAL | | | Calculated | performed at [facility], [address] | | LAB | | | | [address], | | | | | | [place] [address] | | | | + + + + + + + + | Specimen | + + | Blood specimen | | (specimen) | + + + +---------+ + + | Performing | Address | City/State/Zipcode | Phone Number | | Organization | | | | + +---------+ + + | EXTERNAL LAB | | | | + +---------+ + + Basic Metabolic Panel (02/27/2014 5:40 AM PDT) + + + + + + | Component | Value | Ref Range | Performed | Pathologist | | | | | At | Signature | + + + + + + | Na | 137Comment: Testing | 135 - 143 | EXTERNAL | | | | performed at [facility], [address] | mmol/L | LAB | | | | [address], | | | | | | [place] [address] | | | | + + + + + + | K | 4.2Comment: Testing | 3.5 - 4.9 | EXTERNAL | | | | performed at [facility], [address] | mmol/L | LAB | | | | [address], | | | | | | [place] [address] | | | | + + + + + + | Cl | 105Comment: Testing | 99 - 109 mmol/L | EXTERNAL | | | | performed at [facility], [address] | | LAB | | | | [address], | | | | | | [place] [address] | | | | + + + + + + | CO2 | 27Comment: Testing | 23 - 32 mmol/L | EXTERNAL | | | | performed at [facility], [address] | | LAB | | | | [address], | | | | | | [place] [address] | | | | + + + + + + | Anion Gap | 9Comment: Testing | 5 - 20 mmol/L | EXTERNAL | | | | performed at [facility], [address] | | LAB | | | | [address], | | | | | | [place] [address] | | | | + + + + + + | Glucose, | 98Comment: Testing | 65 - 99 mg/dL | EXTERNAL | | | Fasting | performed at [facility], [address] | | LAB | | | | [address], | | | | | | [place] [address] | | | | + + + + + + | BUN | 16Comment: Testing | 8 - 25 mg/dL | EXTERNAL | | | | performed at [facility], [address] | | LAB | | | | [address], | | | | | | [place] [address] | | | | + + + + + + | Creatinine | 0.96Comment: Testing | 0.70 - 1.30 | EXTERNAL | | | | performed at [facility], [address] | mg/dL | LAB | | | | [address], | | | | | | [place] [address] | | | | + + + + + + | BUN/Creatin | 17Comment: Testing | | EXTERNAL | | | ine Ratio | performed at [facility], [address] | | LAB | | | | [address], | | | | | | [place] [address] | | | | + + + + + + | Calcium | 9.3Comment: Testing | 8.5 - 10.2 | EXTERNAL | | | | performed at [facility], [address] | mg/dL | LAB | | | | [address], | | | | | | [place] [address] | | | | + + + + + + | Estimated | >60Comment: GFR <60: | mL/min/1.73m2 | EXTERNAL | | | GFR | CHRONIC KIDNEY DISEASE, | | LAB | | | | IF FOUND OVER A 3 MONTH | | | | | | PERIOD.GFR <15: KIDNEY | | | | | | FAILURE.FOR | | | | | | AMERICANS, MULTIPLY THE | | | | | | CALCULATED GFR BY | | | | | | 1.210.Testing performed | | | | | | at [facility], [address] | | | | | | [address], | | | | | | [place] [address] | | | | + + + + + + + + | Specimen | + + | Blood specimen | | (specimen) | + + + +---------+ + + | Performing | Address | City/State/Zipcode | Phone Number | | Organization | | | | + +---------+ + + | EXTERNAL LAB | | | | + +---------+ + + ECG 12 lead (02/27/2014 12:09 AM PDT) + + + + + + | Component | Value | Ref Range | Performed | Pathologist | | | | | At | Signature | + + + + + + | DIAGNOSIS: | Normal sinus rhythmLeft | | EXTERNAL | | | | anterior fascicular | | LAB | | | | blockCannot rule out | | | | | | Inferior infarct (cited | | | | | | on or before | | | | | | 26-FEB-2014)Poor R - | | | | | | progressionAbnormal | | | | | | ECGWhen compared with | | | | | | ECG of 26-FEB-2014 | | | | | | 05:30,Confirmed by | | | | | | DAWSON GIBBS ([id number]) on | | | | | | 02/27/2014 10:06:48 PM | | | | + + + + + + + + | Specimen | + + | | + + + + + | Narrative | Performed At | + + + | Historically converted procedure from [facility] environment | EXTERNAL LAB | + + + + +---------+ + + | Performing | Address | City/State/Zipcode | Phone Number | | Organization | | | | + +---------+ + + | EXTERNAL LAB | | | | + +---------+ + + Activated clotting time (02/26/2014 10:49 PM PDT) + + + + + + | Component | Value | Ref Range | Performed | Pathologist | | | | | At | Signature | + + + + + + | Activated | 198 (H)Comment: Testing | 74 - 137 | EXTERNAL | | | Clotting | performed at [facility] [place] | seconds | LAB | | | time, POC | [address];[place], [place] | | | | | | [address] | | | | + + + + + + + + | Specimen | + + | | + + + +---------+ + + | Performing | Address | City/State/Zipcode | Phone Number | | Organization | | | | + +---------+ + + | EXTERNAL LAB | | | | + +---------+ + + CK-MB (02/26/2014 5:25 PM PDT) + + + + + -+ | Component | Value | Ref Range | Performed | Pathologist | | | | | At | Signature | + + + + + -+ | CK-MB | 5.4 (H)Comment: Testing | 0.5 - 3.6 ng/mL | EXTERNAL | | | | performed at [facility] [place] | | LAB | | | | [facility];[place], [place] | | | | | | [address] | | | | + + + + + -+ | CK-MB Index | 2.4Comment: CK INDEX | | EXTERNAL | | | | INTERPRETATION: | | LAB | | | | MMB ng/mL | | | | | | | | | | | |CK INDEX INTERPRETATION: | | | | | | MMB ng/mL | | | | | | | | | | + + + + + -+ + + | Specimen | + + | | + + + +---------+ + + | Performing | Address | City/State/Zipcode | Phone Number | | Organization | | | | + +---------+ + + | EXTERNAL LAB | | | | + +---------+ + + Troponin I (02/26/2014 5:25 PM PDT) + + + + + + | Component | Value | Ref Range | Performed | Pathologist | | | | | At | Signature | + + + + + + | Troponin I, | 1.05 ()Comment: 0.00 | 0.00 - 0.10 | EXTERNAL | | | Qual | to 0.10 CONSISTENT | ng/mL | LAB | | | | WITH NORMAL | | | | | | POPULATION0.11 to 0.60 | | | | | | CONSISTENT WITH | | | | | | INCREASED RISK FOR | | | | | | ADVERSE OUTCOMES> 0.60 | | | | | | CONSISTENT | | | | | | WITH WHO CRITERIA FOR | | | | | | ACUTE LA RESULT READ | | | | | | BACK BY:LUISITO Riley ON 3OP | | | | | | AT [address] [place] | | | | | | [id number] performed | | | | | | at [facility] [place] [place] [address] | | | | | | [facility];[place] [address] | | | | + + + + + + + + | Specimen | + + | Blood specimen | | (specimen) | + + + +---------+ + + | Performing | Address | City/State/Zipcode | Phone Number | | Organization | | | | + +---------+ + + | EXTERNAL LAB | | | | + +---------+ + + CK Total (02/26/2014 5:25 PM PDT) + + + + + + | Component | Value | Ref Range | Performed | Pathologist | | | | | At | Signature | + + + + + + | CK, Total | 228Comment: Testing | 55 - 400 U/L | EXTERNAL | | | | performed at [facility] [place];[address] | | LAB | | | | [address];[place], [place] | | | | | | [address] | | | | + + + + + + + + | Specimen | + + | Blood specimen | | (specimen) | + + + +---------+ + + | Performing | Address | City/State/Zipcode | Phone Number | | Organization | | | | + +---------+ + + | EXTERNAL LAB | | | | + +---------+ + + ECHO Complete (02/26/2014 1:40 PM PDT) + + | Specimen | + + | | + + + + + | Impressions | Performed At | + + + | 1. Overall left ventricular systolic function is normal with, an EF | | | between 60 - 65 %. 2. There is mild concentric left ventricular | | | hypertrophy. 3. The left atrium is moderately dilated. 4. Mild | | | mitral regurgitation is present. 5. Right ventricular systolic | | | pressure (pulmonary artery systolic pressure) is normal at < 35 mmHg. | | + + + + + + | Narrative | Performed At | + + + | Patient Name: JOAQUIM SANCHEZ Date of : 1950 | | | Performing Physician: Dawson Gibbs MD | | | | | | INDICATIONS Chest pain NSTEMI CONCLUSIONS | | | 1. Overall left ventricular systolic function is normal | | | with, an EF between 60 - 65 %. 2. There is mild concentric left | | | ventricular hypertrophy. 3. The left atrium is moderately dilated. | | | 4. Mild mitral regurgitation is present. 5. Right ventricular | | | systolic pressure (pulmonary artery systolic pressure) is normal at < | | | 35 mmHg. FINDINGS -------- ECG rhythm: Sinus rhythm. Study: A | | | 2-dimensional transthoracic echocardiogram with m-mode, spectral and | | | color flow Doppler was perfomed. Study: This was a technically | | | adequate study. Left Ventricle: Overall left ventricular systolic | | | function is normal with, an EF between 60 - 65 %. Left Ventricle: The | | | left ventricle cavity size is normal. Left Ventricle: There is mild | | | concentric left ventricular hypertrophy. Right Ventricle: The right | | | ventricle is moderately enlarged measuring between 3.8 - 4.1 cm. | | | Right Ventricle: Moderator band is visualized in the right ventricular | | | apex. Left Atrium: The left atrium is moderately dilated. Right | | | Atrium: The right atrium is mildly enlarged. Aortic Valve: The aortic | | | valve is trileaflet, and appears anatomically normal. No aortic | | | stenosis or regurgitation. Mitral Valve: The mitral valve is normal. | | | Mitral Valve: Mild mitral regurgitation is present. Mitral Valve: | | | Mild mitral annular calcification present. Tricuspid Valve: The | | | tricuspid valve appears structurally normal. Tricuspid Valve: Right | | | ventricular systolic pressure (pulmonary artery systolic pressure) is | | | normal at < 35 mmHg. Pulmonic Valve: Pulmonic valve appears | | | structurally normal. Pulmonic Valve: Trace pulmonic regurgitation. | | | Pericardium: There is no pericardial effusion. IVC/Hepatic Veins: | | | The IVC is normal size (1.5-2.5cm) and collapses >50% with sniff, | | | consistent with central venous pressures of 5-10mmHg. Mass: No mass | | | visualized Thrombus: No clot visualized Thrombus: No vegetation | | | visualized. MEASUREMENTS LA Major: 5.06 cm | | | EDV(Teich): 139.78 ml IVSd: 1.42 cm LVIDd: 5.37 cm LVPWd: | | | 1.41 cm LVOT Diam: 2.21 cm %FS: 43.16 % EF(Teich): | | | 73.83 % ESV(Teich): 36.57 ml IVSs: 2.24 cm LVIDs: 3.05 cm | | | LVPWs: 2.04 cm SV(Teich): 103.20 ml RA Major: 5.67 cm | | | RVIDd: 3.88 cm LVEF MOD A2C: 69.87 % SV MOD A2C: 91.37 ml | | | LVEF MOD A4C: 67.76 % SV MOD A4C: 100.28 ml EF Biplane: | | | 68.86 % LVEDV MOD BP: 142.59 ml LVESV MOD BP: 44.39 ml LVEDV | | | MOD A2C: 130.76 ml LVLd A2C: 9.23 cm LVEDV MOD A4C: 147.99 | | | ml LVLd A4C: 8.76 cm LVESV MOD A2C: 39.39 ml LVLs A2C: | | | 6.82 cm LVESV MOD A4C: 47.71 ml LVLs A4C: 6.46 cm LAESV(A-L): | | | 53.70 ml LAESV Index (A-L): 21.06 ml/m2 LAAs A2C: 18.64 | | | cm2 LAESV A-L A2C: 64.23 ml LALs A2C: 4.59 cm LAAs A4C: | | | 15.59 cm2 LAESV A-L A4C: 39.58 ml LALs A4C: 5.21 cm Ao Diam: | | | 4.49 cm AV Cusp: 2.72 cm LA Diam: 4.65 cm LA/Ao: 1.03 | | | %FS: 33.35 % EDV(Teich): 141.36 ml EF(Teich): 61.50 % | | | ESV(Teich): 54.41 ml IVSd: 1.30 cm IVSs: 2.02 cm LVIDd: | | | 5.40 cm LVIDs: 3.59 cm LVPWd: 1.16 cm LVPWs: 1.66 cm | | | SV(Teich): 86.95 ml D-E Excursion: 2.38 cm E-F Daviess: 0.04 | | | m/s IVC diameter: 2.14 cm IVC collapse: 0.67 cm IVC % | | | collapse: 66.27 % HR: 55.57 BPM AV maxP.39 mmHg AV | | | meanP.27 mmHg AV Vmax: 1.16 m/s AV Vmean: 0.67 m/s AV | | | VTI: 25.74 cm TANVI Vmax: 3.59 cm2 TANVI (VTI): 3.61 cm2 LVCI | | | Dopp: 1.99 l/minm2 LVCO Dopp: 5.09 l/min HR: 54.70 BPM | | | LVOT maxP.68 mmHg LVOT meanP.25 mmHg LVSI Dopp: | | | 36.54 ml/m2 LVSV Dopp: 93.18 ml LVOT Vmax: 1.08 m/s LVOT | | | Vmean: 0.69 m/s LVOT VTI: 24.13 cm MCO: 470.58 ms MR | | | maxP.91 mmHg MR Vmax: 3.77 m/s MV A Damien: 0.80 m/s MV | | | DecT: 264.89 ms MV E Damien: 0.81 m/s MV E/A Ratio: 1.01 MV | | | PHT: 77.82 ms MVA By PHT: 2.82 cm2 MV A Dur: 166.08 ms | | | Septal e': 0.09 m/s Septal E/e': 8.97 Lateral e': 0.07 m/s | | | Lateral E/e': 11.06 P Vein A: 0.33 m/s P Vein A Dur: | | | 162.62 ms P Vein D: 0.37 m/s P Vein S/D Ratio: 1.28 P Vein S: | | | 0.48 m/s PAEDP: 11.50 mmHg PRend P.50 mmHg PRend | | | Vmax: 0.61 m/s HR: 55.22 BPM PV maxP.42 mmHg PV | | | meanP.73 mmHg PV Vmax: 0.59 m/s PV Vmean: 0.39 m/s PV | | | VTI: 17.36 cm RAP: 10 mmHg RVSP: 27.83 mmHg TR maxPG: | | | 17.83 mmHg TR Vmax: 2.11 m/s TV A Damien: 0.51 m/s TV Dec Daviess: | | | 3.41 m/s2 TV Dec Time: 242.39 ms TV E Damien: 0.82 m/s TV | | | E/A Ratio: 1.61 Chopper Gun Operator: Authenticated by: Dawson | | | Sai ROTH Report Date/Time: 02-26-2014 14:43:32 | | + + + + ---------+ | Procedure Note | + ---------+ | Dario, Rad Conversion - 05/09/2019 3:45 PM PDT Patient Name: Mil SANCHEZ of | | : 1950 Performing Physician: Dawson Gibbs | | INDICATIONS C | | hest pain NSTEMI CONCLUSIONS 1. Overall left ventricular systolic function is | | normal with, an EF between 60 - 65 %.2. There is mild concentric left ventricular | | hypertrophy.3. The left atrium is moderately dilated.4. Mild mitral regurgitation is | | present.5. Right ventricular systolic pressure (pulmonary artery systolic pressure) is | | normal at < 35 mmHg. FINDINGS--------ECG rhythm: Sinus rhythm.Study: A 2-dimensional | | transthoracic echocardiogram with m-mode, spectral and color flow Doppler was | | perfomed.Study: This was a technically adequate study.Left Ventricle: Overall left | | ventricular systolic function is normal with, an EF between 60 - 65 %.Left Ventricle: | | The left ventricle cavity size is normal.Left Ventricle: There is mild concentric left | | ventricular hypertrophy.Right Ventricle: The right ventricle is moderately enlarged | | measuring between 3.8 - 4.1 cm.Right Ventricle: Moderator band is visualized in the | | right ventricular apex.Left Atrium: The left atrium is moderately dilated.Right Atrium: | | The right atrium is mildly enlarged.Aortic Valve: The aortic valve is trileaflet, and | | appears anatomically normal. No aortic stenosis or regurgitation.Mitral Valve: The | | mitral valve is normal.Mitral Valve: Mild mitral regurgitation is present.Mitral Valve: | | Mild mitral annular calcification present.Tricuspid Valve: The tricuspid valve appears | | structurally normal.Tricuspid Valve: Right ventricular systolic pressure (pulmonary | | artery systolic pressure) is normal at < 35 mmHg.Pulmonic Valve: Pulmonic valve appears | | structurally normal.Pulmonic Valve: Trace pulmonic regurgitation.Pericardium: There is | | no pericardial effusion.IVC/Hepatic Veins: The IVC is normal size (1.5-2.5cm) and | | collapses >50% with sniff, consistent with central venous pressures of 5-10mmHg.Mass: No | | mass visualizedThrombus: No clot visualizedThrombus: No vegetation visualized. | | MEASUREMENTS LA Major: 5.06 cmEDV(Teich): 139.78 mlIVSd: 1.42 cmLVIDd: | | 5.37 cmLVPWd: 1.41 cmLVOT Diam: 2.21 cm%FS: 43.16 %EF(Teich): 73.83 | | %ESV(Teich): 36.57 mlIVSs: 2.24 cmLVIDs: 3.05 cmLVPWs: 2.04 cmSV(Teich): | | 103.20 mlRA Major: 5.67 cmRVIDd: 3.88 cmLVEF MOD A2C: 69.87 %SV MOD A2C: 91.37 | | mlLVEF MOD A4C: 67.76 %SV MOD A4C: 100.28 mlEF Biplane: 68.86 %LVEDV MOD BP: | | 142.59 mlLVESV MOD BP: 44.39 mlLVEDV MOD A2C: 130.76 mlLVLd A2C: 9.23 cmLVEDV MOD | | A4C: 147.99 mlLVLd A4C: 8.76 cmLVESV MOD A2C: 39.39 mlLVLs A2C: 6.82 cmLVESV MOD | | A4C: 47.71 mlLVLs A4C: 6.46 cmLAESV(A-L): 53.70 mlLAESV Index (A-L): 21.06 | | ml/m2LAAs A2C: 18.64 [id number] A-L A2C: 64.23 mlLALs A2C: 4.59 cmLAAs A4C: 15.59 | | [id number] A-L A4C: 39.58 mlLALs A4C: 5.21 cmAo Diam: 4.49 cmAV Cusp: 2.72 cmLA | | Diam: 4.65 cmLA/Ao: 1.03%FS: 33.35 %EDV(Teich): 141.36 mlEF(Teich): 61.50 | | %ESV(Teich): 54.41 mlIVSd: 1.30 cmIVSs: 2.02 cmLVIDd: 5.40 cmLVIDs: 3.59 | | cmLVPWd: 1.16 cmLVPWs: 1.66 cmSV(Teich): 86.95 mlD-E Excursion: 2.38 cmE-F | | Daviess: 0.04 m/sIVC diameter: 2.14 cmIVC collapse: 0.67 cmIVC % collapse: 66.27 | | %HR: 55.57 BPMAV maxP.39 mmHgAV meanP.27 mmHgAV Vmax: 1.16 m/Montrell Vmean: | | 0.67 m/Montrell VTI: 25.74 cmAVA Vmax: 3.59 cm2AVA (VTI): 3.61 [id number] Dopp: 1.99 | | [id number] Dopp: 5.09 l/minHR: 54.70 BPMLVOT maxP.68 mmHgLVOT meanP.25 | | mmHgLVSI Dopp: 36.54 ml/m2LVSV Dopp: 93.18 mlLVOT Vmax: 1.08 m/sLVOT Vmean: 0.69 | | m/sLVOT VTI: 24.13 cmMCO: 470.58 msMR maxP.91 mmHgMR Vmax: 3.77 m/sMV A | | Damien: 0.80 m/sMV DecT: 264.89 msMV E Damien: 0.81 m/sMV E/A Ratio: 1.01MV PHT: | | 77.82 msMVA By PHT: 2.82 cm2MV A Dur: 166.08 msSeptal e': 0.09 m/sSeptal E/e': | | 8.97Lateral e': 0.07 m/sLateral E/e': 11.06P Vein A: 0.33 m/sP Vein A Dur: | | 162.62 msP Vein D: 0.37 m/sP Vein S/D Ratio: 1.28P Vein S: 0.48 m/sPAEDP: 11.50 | | mmHgPRend P.50 mmHgPRend Vmax: 0.61 m/sHR: 55.22 BPMPV maxP.42 mmHgPV | | meanP.73 mmHgPV Vmax: 0.59 m/sPV Vmean: 0.39 m/sPV VTI: 17.36 cmRAP: 10 | | mmHgRVSP: 27.83 mmHgTR maxP.83 mmHgTR Vmax: 2.11 m/sTV A Damien: 0.51 m/sTV | | Dec Daviess: 3.41 m/s2TV Dec Time: 242.39 msTV E Damien: 0.82 m/sTV E/A Ratio: 1.61 | | Chopper Gun Operator: ASAuthenticated by: Dawson Gibbs [facility] Date/Time: 02-26-2014 14:43:32 | | IMPRESSION: 1. Overall left ventricular systolic function is normal with, an EF between | | 60 - 65 %.2. There is mild concentric left ventricular hypertrophy.3. The left atrium is | | moderately dilated.4. Mild mitral regurgitation is present.5. Right ventricular | | systolic pressure (pulmonary artery systolic pressure) is normal at < 35 mmHg. | |IVSs: 2.24 cm | |LVIDs: 3.05 cm | |LVPWs: 2.04 cm | |SV(Teich): 103.20 ml | |RA Major: 5.67 cm | |RVIDd: 3.88 cm | |LVEF MOD A2C: 69.87 % | |SV MOD A2C: 91.37 ml | |LVEF MOD A4C: 67.76 % | |SV MOD A4C: 100.28 ml | |EF Biplane: 68.86 % | |LVEDV MOD BP: 142.59 ml | |LVESV MOD BP: 44.39 ml | |LVEDV MOD A2C: 130.76 ml | |LVLd A2C: 9.23 cm | |LVEDV MOD A4C: 147.99 ml | |LVLd A4C: 8.76 cm | |LVESV MOD A2C: 39.39 ml | |LVLs A2C: 6.82 cm | |LVESV MOD A4C: 47.71 ml | |LVLs A4C: 6.46 cm | |LAESV(A-L): 53.70 ml | |LAESV Index (A-L): 21.06 ml/m2 | |LAAs A2C: 18.64 cm2 | |LAESV A-L A2C: 64.23 ml | |LALs A2C: 4.59 cm | |LAAs A4C: 15.59 cm2 | |LAESV A-L A4C: 39.58 ml | |LALs A4C: 5.21 cm | |Ao Diam: 4.49 cm | |AV Cusp: 2.72 cm | |LA Diam: 4.65 cm | |LA/Ao: 1.03 | |%FS: 33.35 % | |EDV(Teich): 141.36 ml | |EF(Teich): 61.50 % | |ESV(Teich): 54.41 ml | |IVSd: 1.30 cm | |IVSs: 2.02 cm | |LVIDd: 5.40 cm | |LVIDs: 3.59 cm | |LVPWd: 1.16 cm | |LVPWs: 1.66 cm | |SV(Teich): 86.95 ml | |D-E Excursion: 2.38 cm | |E-F Daviess: 0.04 m/s | |IVC diameter: 2.14 cm | |IVC collapse: 0.67 cm | |IVC % collapse: 66.27 % | |HR: 55.57 BPM | |AV maxP.39 mmHg | |AV meanP.27 mmHg | |AV Vmax: 1.16 m/s | |AV Vmean: 0.67 m/s | |AV VTI: 25.74 cm | |TANVI Vmax: 3.59 cm2 | |TANVI (VTI): 3.61 cm2 | |LVCI Dopp: 1.99 l/minm2 | |LVCO Dopp: 5.09 l/min | |HR: 54.70 BPM | |LVOT maxP.68 mmHg | |LVOT meanP.25 mmHg | |LVSI Dopp: 36.54 ml/m2 | |LVSV Dopp: 93.18 ml | |LVOT Vmax: 1.08 m/s | |LVOT Vmean: 0.69 m/s | |LVOT VTI: 24.13 cm | |MCO: 470.58 ms | |MR maxP.91 mmHg | |MR Vmax: 3.77 m/s | |MV A Damien: 0.80 m/s | |MV DecT: 264.89 ms | |MV E Damien: 0.81 m/s | |MV E/A Ratio: 1.01 | |MV PHT: 77.82 ms | |MVA By PHT: 2.82 cm2 | |MV A Dur: 166.08 ms | |Septal e': 0.09 m/s | |Septal E/e': 8.97 | |Lateral e': 0.07 m/s | |Lateral E/e': 11.06 | |P Vein A: 0.33 m/s | |P Vein A Dur: 162.62 ms | |P Vein D: 0.37 m/s | |P Vein S/D Ratio: 1.28 | |P Vein S: 0.48 m/s | |PAEDP: 11.50 mmHg | |PRend P.50 mmHg | |PRend Vmax: 0.61 m/s | |HR: 55.22 BPM | |PV maxP.42 mmHg | |PV meanP.73 mmHg | |PV Vmax: 0.59 m/s | |PV Vmean: 0.39 m/s | |PV VTI: 17.36 cm | |RAP: 10 mmHg | |RVSP: 27.83 mmHg | |TR maxP.83 mmHg | |TR Vmax: 2.11 m/s | |TV A Damien: 0.51 m/s | |TV Dec Daviess: 3.41 m/s2 | |TV Dec Time: 242.39 ms | |TV E Damien: 0.82 m/s | |TV E/A Ratio: 1.61 | | | |Chopper Gun Operator: | |Authenticated by: Dawson Gibbs MD | |Report Date/Time: 02-26-2014 14:43:32 | | | |IMPRESSION: | |1. Overall left ventricular systolic function is normal with, an EF between 60 - 65 %. | |2. There is mild concentric left ventricular hypertrophy. | |3. The left atrium is moderately dilated. | |4. Mild mitral regurgitation is present. | |5. Right ventricular systolic pressure (pulmonary artery systolic pressure) is normal at < 35 mmHg. | + ---------+ CK-MB (02/26/2014 11:51 AM PDT) + + + + + -+ | Component | Value | Ref Range | Performed | Pathologist | | | | | At | Signature | + + + + + -+ | CK-MB | 5.9 (H)Comment: Testing | 0.5 - 3.6 ng/mL | EXTERNAL | | | | performed at [facility] [place] [facility] [place] | | LAB | | | | [facility];[place], [place] | | | | | | [id number] | | | | + + + + + -+ | CK-MB Index | 2.5Comment: CK INDEX | | EXTERNAL | | | | INTERPRETATION: | | LAB | | | | MMB ng/mL | | | | | | | | | | | |CK INDEX INTERPRETATION: | | | | | | MMB ng/mL | | | | | | | | | | + + + + + -+ + + | Specimen | + + | | + + + +---------+ + + | Performing | Address | City/State/Zipcode | Phone Number | | Organization | | | | + +---------+ + + | EXTERNAL LAB | | | | + +---------+ + + Troponin I (02/26/2014 11:51 AM PDT) + + + + + + | Component | Value | Ref Range | Performed | Pathologist | | | | | At | Signature | + + + + + + | Troponin I, | 0.855 ()Comment: | 0.00 - 0.10 | EXTERNAL | | | Qual | 0.00 to 0.10 | ng/mL | LAB | | | | CONSISTENT WITH NORMAL | | | | | | POPULATION0.11 to 0.60 | | | | | | CONSISTENT WITH | | | | | | INCREASED RISK FOR | | | | | | ADVERSE OUTCOMES> 0.60 | | | | | | CONSISTENT | | | | | | WITH WHO CRITERIA FOR | | | | | | ACUTE LA RESULT READ | | | | | | BACK BY:CORINA Fofana AT | | | | | | 1235 BY AETesting | | | | | | performed at [facility] [place] | | | | | | [facility];[place] | | | | | | [address] | | | | + + + + + + + + | Specimen | + + | Blood specimen | | (specimen) | + + + +---------+ + + | Performing | Address | City/State/Zipcode | Phone Number | | Organization | | | | + +---------+ + + | EXTERNAL LAB | | | | + +---------+ + + CK Total (02/26/2014 11:51 AM PDT) + + + + + + | Component | Value | Ref Range | Performed | Pathologist | | | | | At | Signature | + + + + + + | CK, Total | 239Comment: Testing | 55 - 400 U/L | EXTERNAL | | | | performed at [facility] [place] | | LAB | | | | [address];[place], [place] | | | | | | [address] | | | | + + + + + + + + | Specimen | + + | Blood specimen | | (specimen) | + + + +---------+ + + | Performing | Address | City/State/Zipcode | Phone Number | | Organization | | | | + +---------+ + + | EXTERNAL LAB | | | | + +---------+ + + CV CARDIAC PROCEDURE (02/26/2014 10:59 AM PDT) [...] | | patient was brought to the lab asst in the fasting state. He was | | | prepped and draped in the usual sterile fashion for radial artery | | | approach. The radial artery was easily accessed with modified | | | Seldinger approach and a 5-Norwegian glide sheath was placed. A | | | 6-Norwegian JL-4 catheter was advanced under fluoroscopic guidance [...] approach should be done. Read by DAWSON GIBBS MD | | | 03/01/2014 09:19 A Electronically signed by Dawson Gibbs MD on | | | 04/13/2014 8:58 AM | | + + + + + | Procedure Note | + + | Valeriy Bishop Conversion - 05/14/2019 2:20 PM PDT | | PROCEDURES | | PERFORMED1. Selective coronary angiography.2. Percutaneous transluminal coronary | | angioplasty of mid right coronary artery with 2.5 x 12 mm Emerge balloon followed by | | stenting with 3.5 x 16 mm PROMUS Plus drug-eluting stent. BRIEF HISTORYMr. Sanchez is a | | 63-year-old male with history of obesity and hyperlipidemia who presented | | with acute coronary syndrome and mildly positive troponin. He was advised to undergo | | coronary angiography for possible coronary intervention. For details regarding his | | presentation, kindly refer to my consultation note. TECHNIQUEThe patient was brought to | | the lab asst in the fasting state. He was prepped and draped in the usual sterile | | fashion for radial artery approach. The radial artery was easily accessed with modified | | Seldinger approach and a 5-Norwegian glide sheath was placed. A 6-Norwegian JL-4 catheter was | | advanced under [...] be | | done. Read by DAWSON GIBBS MD 03/01/2014 09:19 A | + + CK-MB (02/26/2014 9:56 AM PDT) + + + + + -+ | Component | Value | Ref Range | Performed | Pathologist | | | | | At | Signature | + + + + + -+ | CK-MB | 5.3 (H)Comment: Testing | 0.5 - 3.6 ng/mL | EXTERNAL | | | | performed at [facility] [place] | | LAB | | | | [address];[place] | | | | | | [address] | | | | + + + + + -+ | CK-MB Index | 2.1Comment: CK INDEX | | EXTERNAL | | | | INTERPRETATION: | | LAB | | | | MMB ng/mL | | | | | | | | | | | |CK INDEX INTERPRETATION: | | | | | | MMB ng/mL | | | | | | | | | | + + + + + -+ + + | Specimen | + + | Blood specimen | | (specimen) | + + + +---------+ + + | Performing | Address | City/State/Zipcode | Phone Number | | Organization | | | | + +---------+ + + | EXTERNAL LAB | | | | + +---------+ + + Troponin I (02/26/2014 9:56 AM PDT) + + + + + + | Component | Value | Ref Range | Performed | Pathologist | | | | | At | Signature | + + + + + + | Troponin I, | 0.788 ()Comment: | 0.00 - 0.10 | EXTERNAL | | | Qual | 0.00 to 0.10 | ng/mL | LAB | | | | CONSISTENT WITH NORMAL | | | | | | POPULATION0.11 to 0.60 | | | | | | CONSISTENT WITH | | | | | | INCREASED RISK FOR | | | | | | ADVERSE OUTCOMES> 0.60 | | | | | | CONSISTENT | | | | | | WITH WHO CRITERIA FOR | | | | | | ACUTE LA CALLED TO | | | | | | AGUSTINA Goyal ON 3OP AT | | | | | | 1050 BY TRREAD BACK | | | | | | RESULTS VERIFIEDTesting | | | | | | performed at [facility] [place];[facility] | | | | | | [facility];[place], [place] | | | | | | [address] | | | | + + + + + + + + | Specimen | + + | Blood specimen | | (specimen) | + + + +---------+ + + | Performing | Address | City/State/Zipcode | Phone Number | | Organization | | | | + +---------+ + + | EXTERNAL LAB | | | | + +---------+ + + CK Total (02/26/2014 9:56 AM PDT) + + + + + + | Component | Value | Ref Range | Performed | Pathologist | | | | | At | Signature | + + + + + + | CK, Total | 257Comment: Testing | 55 - 400 U/L | EXTERNAL | | | | performed at [facility] [place];[address] | | LAB | | | | [facility];[place], [place] | | | | | | [address] | | | | + + + + + + + + | Specimen | + + | Blood specimen | | (specimen) | + + + +---------+ + + | Performing | Address | City/State/Zipcode | Phone Number | | Organization | | | | + +---------+ + + | EXTERNAL LAB | | | | + +---------+ + + ECG 12 lead (02/26/2014 5:30 AM PDT) + + + + + + | Component | Value | Ref Range | Performed | Pathologist | | | | | At | Signature | + + + + + + | DIAGNOSIS: | Sinus bradycardiaLeft | | EXTERNAL | | | | axis deviationInferior | | LAB | | | | infarct , age | | | | | | undeterminedAbnormal | | | | | | ECGNo previous ECGs | | | | | | availableThis ECG | | | | | | contains Unconfirmed | | | | | | Interpretation | | | | | | Statements. See ED | | | | | | Record for Physician | | | | | | Interpretation. | | | | | | Confirmed by MUSE READ | | | | | | ONLY, -COMPUTER ([id number]), | | | | | | video editor MARTINA PALMER ([id number]) | | | | | | on 02/26/2014 8:34:28 AM | | | | + + + + + + + + | Specimen | + + | | + + + + + | Narrative | Performed At | + + + | Historically converted procedure from [employer] Epic environment | EXTERNAL LAB | + + + + +---------+ + + | Performing | Address | City/State/Zipcode | Phone Number | | Organization | | | | + +---------+ + + | EXTERNAL LAB | | | | + +---------+ + + XR Chest 1 Vw (02/26/2014 12:23 AM PDT) + + | Specimen | + + | | + + + + + | Narrative | Performed At | + + + | This is a non-reportable procedure without a radiologist report and | | | is used for image storage only | | + + + + + | Procedure Note | + + | Valeriy Bishop Conversion - 05/09/2019 3:45 PM PDT This is a non-reportable procedure | | without a radiologist report and isused for image storage only | + + documented in this encounter Visit Diagnoses + + | Diagnosis | + + | NSTEMI (non-ST elevated myocardial infarction) (HCC) Acute myocardial infarction, | | subendocardial infarction, episode of care unspecified | + + | Chest pain, unspecified | + + | CPAP (continuous positive airway pressure) dependence Dependence on other enabling | | machine | + + documented in this encounter
--- OUTSIDE RECORDS SUMMARY | ~2020-01-25 | XMS | Encounter Summary ---
Demographics + + + | Address | [address] | | | [place] [address] | + + + | Home Phone [...] [place] | | | | | [address] | | + + + + + Care Team Providers + +------+ + | Care Director Of Logistics Name | Role | Phone | + [...] | | Diffuse | Mohamud, | [address] | | | | | large B-cell | Joaquim C, | [place], | | | | | lymphoma of | MD [address] | [place] [address] | | | | | | [address] | Phone: | | | | | intra-abdomi | [place], | [phone] | | | | | nal lymph | [place] [address] | Fax: | | | | | nodes (HCC) | Phone: | [phone] | | | | | Procedures | [phone] | | | | | | CT Chest | Fax: | | | | | | Abdomen | [phone] | | | | | | Pelvis [...] + + | 11/07/ | Hospital | [facility] | Mohamud, | Diffuse large B-cell | | 2017 | Encounter | MED CTR MEDICAL | Joaquim Benson MD [address] | lymphoma of | | | | ONCOLOGY CLINIC [address] | [address] [place] | intra-abdominal | | | | [address] [place] | [place] [address] | lymph nodes (HCC) | | | | [place] [address] | [phone] | (Primary Dx) | | | | [phone] | | | +--------+ + + + [...] nt from the original. Hematology/Oncology Progress Note [facility] DANIEL Blanca Pt. Name/Age/: Joaquim Sanchez Jr. 66 y.o. 1950 Med. Record Number: [id number] Date of admission: 11/07/2016 Identifying Statement: Joaquim Sanchez Jr. is a 66 y.o. male from [address] [place] [address] with Diffuse Large B-Cell Lymphoma. The patient [...] lower extremity. CT abdomen/Pelvis with contrast 2016 ([facility]). Ex tensive periaortic lymphadenopathy (1.8 cm and 2.1 cm respectively), extensive adenopathy ex tending out along the left common iliac artery and encasing the left external iliac artery ( 4.4 cm) with compromise of the left external iliac vein. 2. Open laparotomy with LEFT ileal retroperitoneal lymph node biopsy ([facility]) June 242015. Specimen #[id number] ([facility] Pathology); Diffuse Large B-Cell lymph raciel, [...] 04, 2016. 10. CT Abdomen/Pelvis at [facility] on September 12, 2016; Positive Response when [...] maintenance infusion of rituximab today, then r derick to clinic in two months for his second infusion. In the interval, he will undergo repe at imaging at the [facility] in [place], [place]. Review of Systems: Constitutional: Reports energy [...] Ma., Brittney Luque., Andie Menezes., Michael Trejo., Vy Rodriguez., Armando [...] 11/07/2016 Labs Lactate Dehydrogenase STAT, ONE TIME, 11/07/16 at 0818, For 1 occurrence OrderHistory Comprehensive Metabolic Panel STAT, ONE TIME, e 11/07/16 at 0818, For 1 occurrence OrderHistory CBC with Differential STAT, ONE TIME, e 11/07/16 at 0818, For 1 occurrence OrderHistory Nursing Orders OK to proceed with chemotherapy (Not Released) 11/07/16 - Cancel Cycle #6 RC(O)P NEW Plan; Rituxan 375 mg/m iv q [...] injection 20 mg 20 mg, Intravenous, ONCE, 11/07/16 at 0945, For 1 dose Prior [...] activate mikayla zamora and notify . OrderHisto cherelle TEJEDA MD Portions of this chart may have been created with [employer] ([employer]) voice recognition software. Occasi onal wrong-word or [...] | 05/19/ | Office | Cardiology | Brown Bansal[place]ie, | | | 2020 | Visit | | [address] | | | | | | [facility] [facility] [place] | | | | | | [address] | | | | | | | [...]
--- OUTSIDE RECORDS SUMMARY | ~2020-01-25 | XMS | Encounter Summary ---
Demographics + + + | Address | [address] | | | [place] [address] | + + + | Home Phone | | + + + | Preferred Language | Unknown | + + + | Marital Status | | + + + | Druze Affiliation | 1013 | + + + [...] [place] | | | | | [address] | | + + + + + Care Team Providers + +------+ + | Care Educator Senior Clinical Name | Role | Phone | + [...] | +--------+ + + + + | 07/28/ | Telephone | [facility] | Mohamud, | Follow-up | | 2016 | | MED CTR CHEMO | Gerber Benson MD [address] | | | | | INFUSION [address] [place] | | | | | [place], | [place] [address] | | | | | [place] [address] | [phone] | | | | | [phone] | | | +--------+ + + + [...] [place] | | | | | | [address] | | | | | | | | +--------+---------+ + + + documented as of this encounter Visit Diagnoses Not on filedocumented in this encounter"
--- OUTSIDE RECORDS SUMMARY | ~2020-01-25 | XMS | Encounter Summary ---
Demographics + + + | Address | [address] | | | [place] [address] | + + + | Home Phone [...] [place] | | | | | [address] | | + + + + + Care Team Providers + +------+ + | Care Strategic Marketing Leader Name | Role | Phone | [...] large b-cell | Gerber Benson, | [address] | | | | | lymphoma, | MD [address] | [place], | | | | | intra-abdomi | [address] | [place] [address] | | | | | nal lymph | [place], | Phone: | | | | | nodes (HCC) | [place] [address] | [phone] | | | | | Procedures | Phone: | Fax: | | | | | [place] | [phone] | [phone] | | | | | INJECTION, | Fax: | | | | | | FAMOTIDINE, | [phone] | | | | | | 20 MG DE | | | | | [...] | | | | | | DE NORMAL | | | | | | [...] [place] | intra-abdominal | | | | [address] [place], | [place] [address] | lymph nodes (HCC); | | | | [place] [address] | [phone] | Lymphedema of left | | | | [phone] | | lower extremity | +--------+ + [...] | | | | [place] | | | | | | [address] | | | | | | | [...] [facility] | | | | | | . [facility] | | | [...] + | [facility] | [address] | DANIEL Blanca | [phone] | | [facility] | | [address] | | | - LABORATORY | | [...] mL/min/1.73m2 | Christian Y[facility] | | | [place] | RATE,ESTIMATED | | MEDICAL | | | | mL/min/1.43f4Xhgh than | | CENTER - | | [...] | 9.9 | 8.3 - 10.5 | [place] | | | | | mg/dL | YUE | | | | | | MEDICAL | | | | | | CENTER - | | | | | | LABORATORY | | + + + + + + | Albumin | 3.8 | 3.2 - 5.0 g/dL | [facility] | | | | | | Y[facility] [...] [address] | D[place] | [phone] | | [facility] | | [address] | | | - LABORATORY | | [...] PROVID[facility] | | | | | | [facility] | | | | | | [...] ST. | [address] | [place] | [phone] | | [facility] | | [address] | | | - LABORATORY | | [...] mg, Oral, ONCE, Sun | | 18 11:12 | | | [...]
--- OUTSIDE RECORDS SUMMARY | ~2020-01-25 | XMS | Encounter Summary ---
Demographics + + + | Address | [address] | | | [place] [address] | + + + | Home Phone [...] [place] | | | | | [address] | | + + + + + Care Team Providers + +------+ + | Care Fiberglass Fabricator Name | Role | Phone | + [...] lower | MD [address] | | | | | extremity | [address] | [place], | | | | | | [place], | [place] [address] | | | | | | [place] [address] | Phone: | | | | | | Phone: | [phone] | | | | | | [phone] | Fax: | | | | | | Fax: | [phone] | | | | | | [phone] | | +--------+ + + + + + Encounter Details +--------+---------+ + + + | Date | Type | Department | Care Team | Description | +--------+---------+ + + + | 08/24/ | [facility] | Mohamud, | Lymphedema of left | | 2016 | Visit | MED CNT ONCOLOGY | Gerber Benson MD [address] | lower extremity | | | | THERAPY [address] | [address] [place] | (Primary Dx) | | | | [address] [place], | [place] [address] | | | | | [place] [address] | [phone] | | | | | [phone] | | | | | | | [...] ents for nursing home management of edema. Treatment Plan/Interventions 02236 - OT [id number] - Therapeutic [id number] - Therapeutic Zpbryswpsh74279 - Manu al Therapy Patient and/or family has indicated understanding of treatment needs and actively participa ian in the creation of this plan for care. Electronically signed by: Olivia Portillo OT, 08/25/2016 9:16 Patient Name: Gerber Galindo/: 1950/ Evelyn Vela OT - 08/25/2016 8:39 AM PSTFormatting of this note might be different from the [facility] THERAPY OT OP [address] [facility] [address] Occupational Therapy Initial Assessment Date: 08/24/2016 Patient [...] Rehab Precautions Office Visit from 08/24/2016 in [facility] CTR THERAPY OT OP Rehab Precautions Precautions [...] of an appropriate compression garm ents for exterminator helper termite management of edema. Plan Date of Onset: 2016 Start of Care Date: 08/24/2016 Requested # of Visits: 8 visits 1x/week for 8 weeks Certification From: 08/24/2016 Certification To: 10/24/2016 Treatment Plan/Interventions 33288 - OT [id number] - Therapeutic [id number] - Therapeutic Rltgiwoqcl38408 - Manu al Therapy Patient and/or family [...] | | | | | [place] | | | | | | [address] | | | | | | | [...]
--- OUTSIDE RECORDS SUMMARY | ~2020-01-25 | XMS | Encounter Summary ---
Demographics + + + | Address | [address] | | | [place] [address] | + + + | Home Phone [...] [place] | | | | | [address] | | + + + + + Care Team Providers + +------+ + | Care Cesspool Cleaner Name | Role | Phone | + [...] | | | | | | [place] [address] | [address] | | | | | | Phone: | Phone: | | | | | | [phone] | [phone] | | | | | | Fax: | Fax: | | | | | | [phone] | [phone] | +--------+ + + + + + Reason for Visit + + + | Reason | Comments | + + + | Follow-up | | + + + Encounter Details +--------+ + + + + | Date | Type | Department | Care Team | Description | +--------+ + + + + | 01/01/ | Hospital | [facility] | Mohamud, | Lymphedema of left | | 2017 | Encounter | MED CTR MEDICAL | Joaquim Benson MD [address] | lower extremity | | | | ONCOLOGY CLINIC [address] [place] | (Primary Dx); | | | | [place] | [place] [address] | Diffuse large B-cell | | | | [place] [address] | [phone] | lymphoma of | | | | [phone] | | intra-abdominal | | | | [...] nt from the original. Hematology/Oncology Progress Note [facility] [place] Pt. Name/Age/: Joaquim Leon Daniel Box 66 y.o. 1950 Med. Record Number: [id number] Date of admission: 01/01/2017 Identifying Statement: Joaquim Carolyn Sanchez Jr. is a 66 y.o. male from [address] [address] with Mixed Diffuse Large B-Cell/Follicular Lymphoma. The [...] extremity. CT abdomen/Pelvis with contrast 2016 ([facility]). Ex tensive periaortic lymphadenopathy (1.8 cm and 2.1 cm respectively), extensive adenopathy ex tending out along the left common iliac artery and encasing the left external iliac artery ( 4.4 cm) with compromise of the left external iliac vein. 2. Open laparotomy with LEFT ileal retroperitoneal lymph node biopsy ([facility], [facility]) June 242015. Specimen #[id number] ([facility] Pathology); Diffuse Large B-Cell lymph raciel, [...] 2016. 10. CT Abdomen/Pelvis at [facility] on September 12, 2016; Positive Response [...] (PRIMA protocol). 14. Repeat CT scan at [place], [place] on December 01, [address] [...] also notable for the fact that Rios's experimental rocket sled mechanic has prescribed Sineme t 10/100 for restless [...] 2006 , Vol. 47, No. 6, pp 8528-3145. In the first article, an observational study [...] observational study, by Marques et al from [facility] th [...] | 2019 | Visit | | MD aPtricia JOHNSON | | | | | | [place] | | | | | | [id number] | | | | | | | [...]
--- OUTSIDE RECORDS SUMMARY | ~2020-01-25 | XMS | Encounter Summary ---
Demographics + + + | Address | [address] | | | [place] [address] | + + + | Home Phone [...] [place] | | | | | [address] | | + + + + + Care Team Providers + +------+ + | Care Float Tender Name | Role | Phone | [...] | large cell | [address] | [place], [place] | | | | | B-cell | [place], | [address] | | | | | lymphoma | [place] [address] | Phone: | | | | | ([facility]) | Phone: | [phone] | | | | | | [phone] | Fax: | | | | | | Fax: | [phone] | | | | | | [phone] | | +--------+ + + + + [...] | Primary | Nikhil, | [address] | | | | | cutaneous | Joaquim C, | [place], | | | | | diffuse | MD [address] | [place] | | | | | large cell | [address] | [address] | | | | | B-cell | [place], | Phone: | | | | | lymphoma | [place] [address] | [phone] | | | | | (HCC) | Phone: | Fax: | | | | | Procedures | [phone] | [phone] | | | | | ECHO | Fax: | | | | | | Complete | [phone] | | +--------+--------+ + + + + [...] | | cutaneous | Joaquim C, | [place] | | | | | diffuse | MD [address] | [place], [place] | | | | | large cell | [address] | [address] | | | | | B-cell | [place], | Phone: | | | | | lymphoma | [place] [address] | [phone] | | | | | (HCC) | Phone: | Fax: | | | | | Procedures | [phone] | [phone] | | | | | PET CT Skull | Fax: | | | | | | Base To Mid | [phone] | | | | | | Thigh [...] | | cell | [place], | [place], [place] | | | | | lymphoma | [place] [address] | [address] Phone: | | | | | Procedures | Phone: | [phone] | | | | | [place] OFFICE | [phone] | Fax: | | | | | OUTPATIENT | Fax: | [phone] | | | | | VISIT 25 | [phone] | | | | | | MINUTES | | | | | | | Evaluate | | | +--------+ + + + + + Encounter Details +--------+ + + + + | Date | Type | Department | Care Team | Description | +--------+ + + + + | 07/18/ | Hospital | [facility] | Nikhil, | Primary cutaneous | | 2016 | Encounter | MED CTR MEDICAL | Joaquim Benson MD [address] | diffuse large cell | | | | ONCOLOGY CLINIC [address] | [address] [place] | B-cell lymphoma | | | | [place] | [place] [address] | (HCC) (Primary Dx); | | | | [place] [address] | [phone] | Diffuse large B-cell | | | | [phone] | | lymphoma of | | | [...] nt from the original. Hematology/Oncology Progress Note [facility] DANIEL Blanca Pt. Name/Age/: Joaquim Galindo 66 y.o. 1950 Med. Record Number: [id number] Date of admission: 07/18/2016 Identifying Statement: Joaquim Galindo is a 66 y.o. male from [address] [place] [address] with Diffuse Large B-Cell Lymphoma. The patient [...] ([facility]) June 242015. Specimen #[id number] ([facility] Pathology); Diffuse Large B-Cell lymph raciel, germinal center subtype (75%). 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 Overall Ki-67 expre ssion 70%. Current Assessment & Plan This was an extended, 60 minute, office encounter with Joaquim Galindo "TAMMY" and his wi fe Mara at the [facility] on 07/18/2016. We reviewed his presentation [...] Assessment and Plan. Complete blood counts from [facility] July 06, 2016 white co unt 7700 hemoglobin 10.9 g/dL hematocrit 33% platelet count 147,000. Complete metabolic panel [facility] July 06, 2016 uric acid 6 .8 [...] prior history of sleep apnea syndrome. The [place] [employer]esthes[employer] patient classification is class [...] this chart may have been created with [employer] voice recognition software. Occasi onal wrong-word or [...] | | | | | | [place] [facility] [place] | | | | | | [address] | | | | | | | [...] Number JOAQUIM Patient Number | | | [id number] Date of Study 07/21/2016 Visit Number | | | [id number] Referring Physician | | | NIKHIL JOAQUIM C Number Date of 1950 | | | Methane Gas Collection System Operator [facility] Age | | | 66 year(s) Interpreting YAMEL DYKES MD | | | Properties Supervisor Gender | | | Male Nurse Procedure [...] Index: 17 mL/m^2 | | | EF Fwvwpbbro04% Left Ventricle Diastolic Dimension: | | | [...] | LA Vol/BSA Index: 17 mL/m^2 EF Uokmdbxfh02% | | | | | | Left [...] Room Number JOAQUIM | | Patient Number [id number] Date of Study 07/21/2016 Visit Number | | [id number] Referring Physician NIKHIL Benson | | Number Date of 1950 Methane Gas Collection System Operator [facility] Age | | 66 year(s) Interpreting YAMEL DYKES MD | | Properties Supervisor Gender Male NurseProcedureType of Study TTE | [...] Vol/BSA Index: | | 17 mL/m^2 EF Fqznvrujn99% Left Ventricle Diastolic Dimension: | | 4.8 [...] | LA Vol/BSA Index: 17 mL/m^2 EF Sggdqffyg27% | | | | Left Ventricle | [...]
--- OUTSIDE RECORDS SUMMARY | ~2020-01-25 | XMS | Clinical Summary ---
Demographics + + + | Address | [address] | | | [place] [address] | + + + | Home Phone | | + + + | Preferred Language | Unknown | + + + | Marital Status | Unknown | + + + | Jainism Affiliation | Unknown | + + + [...] Team Providers + +------+ + | Care Ambulette Driver Name | Role | Phone | + +------+ + PCP | Unavailable | + +------+ + Source Comments JOSE is fully live on both [facility] Amb[facility] and [facility] InPatient.[facility] Allergies Not on File Medications Not [...]
--- OUTSIDE RECORDS SUMMARY | ~2020-01-25 | XMS | Encounter Summary ---
Demographics + + + | Address | [address] | | | [place] [address] | + + + | Home Phone | | + + + | Preferred Language | Unknown | + + + | Marital Status | | + + + | Caodaism Affiliation | 1013 | + + + | Race | Unknown | + + + | Ethnic Group | Unknown | + + + Author + + + | Author | [facility] | | | and [place] | + + + | Organization | [facility] | | [...] [place] | | | | | [address] | | + + + + + Care Team Providers + +------+ + | Care Military Equipment Specialist Name | Role | Phone | [...] + + | 10/26/ | Hospital | [facility] | [facility], | Lymphedema of left | | 2017 | Encounter | [facility] | Joaquim Benson MD [address] | lower extremity | | | | [facility]OGY CLINIC [address] | [address] | (Primary Dx); | | | | [address] | [place] [address] | Diffuse large B-cell | | | | [place] [address] | [phone] | lymphoma of | | | | [phone] | | intra-abdominal | | | | [...] + + + | Blood Pressure | 118/59 | 10/26/2016 9:09 AM | | | | | PST | | + + + + + | Pulse | 67 | 10/26/2016 9:09 AM | | | | | PST | | + + + + + | Temperature | 36.6 C (97.8 F) | 10/26/2016 9:09 AM | | | | | PST | | + + + + + | Respiratory Rate | 16 | 10/26/2016 9:09 AM | | | | | PST | | + + + + + | Oxygen Saturation | 95% | 10/26/2016 9:09 AM | | | | | PST | | + + + + + | Inhaled Oxygen | - | - | | | Concentration | | | | + + + + + | Weight | 139.9 kg (308 lb 8 | 10/26/2016 9:09 AM | | | | oz) | PST | | + + + + + | Height | - | - | | + + + + + | Body Mass Index | 39.61 | 07/18/2016 4:16 PM | | | | | PDT | | + + + + + documented in this encounter Discharge Instructions Instructions Joaquim Tejeda MD - 10/26/2016Two types of B-cell lymphoma occurred in transformation; Diffuse Large B-Cell lymphoma and Follicular B-Cell lymphoma. In all likelihood, you cancer started out as a Follicuar B-cell lymphoma, and at some point part of the Follicular B-Cell lymphoma transformed into a Diffuse Large B-Cell Lymphoma. Th is is a well characterized process call Turner's Transformation. This occurs 15% of time wi th Follicular B-Cell lymphomas. The Diffuse Large B-cell lymphoma is much more aggressive an d eminently life threatening. The initial treatment for this process is 6 cycles of RCHOP chemotherapy. In general the Diffuse Large B-Cell lymphomas are cured 80% time with chemotherapy. The Adrian hter's transformation is probably a little less likely to be cured. For follicular lymphomas, the general approach is to use the rituximab as a maintenance pro gram after the completion of the chemoimmunotherapy (RCHOP). The standard maintenance is one dose of rituximab every 2 months for two years. Rituxan is big bag that takes the longest t o administer, but does not cause nausea, vomiting, fatigue, hair loss, loosening of fingerna ils and toenails, dyspepsia, low blood counts, numbness of the fingers and toes. We will do another CT scan after your sixth RCH(O)P chemotherapy. documented in this encounter Medications at Time [...] encounter Progress Notes Joaquim Tejeda MD - 10/26/2016 8:51 AM PSTFormatting of this note might be differe nt from the original. Hematology/Oncology Progress Note [place], [place] Pt. Name/Age/: Joaquim Sanchez Jr. 66 y.o. 1950 Med. Record Number: [id number] Date of admission: 10/26/2016 Identifying Statement: Joaquim Sanchez Jr. is a 66 y.o. male from [address] [address] with Diffuse Large B-Cell Lymphoma. The patient [...] lower extremity. CT abdomen/Pelvis with contrast 2016 ([facility]). Ex tensive periaortic lymphadenopathy (1.8 cm and 2.1 cm respectively), extensive adenopathy ex tending out along the left common iliac artery and encasing the left external iliac artery ( 4.4 cm) with compromise of the left external iliac vein. 2. Open laparotomy with LEFT ileal retroperitoneal lymph node biopsy ([facility], [facility]) June 242015. Specimen #[id number] ([facility]ology); Diffuse Large B-Cell lymph raciel, [...] 10. 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 Review of systems is notable for; fatigue, nausea, night sweats, dysphagia, dyspepsia, cons tipation, numbness in the fingers and toes, joint pain, separation of the toenails from the nailbeds, insomnia, and decreased mental acuity. Clinical exam is unchanged. Laboratory evaluation is notable for Grade 3 neutropenia and Grade 2 thrombocytopenia. 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 Plan: This was an extended, 25 minute office encounter with Rios and Mara. We reviewed the final outside review of his pathology, which identified elements of both di ffuse large B-cell lymphoma and Follicular B-cell lymphoma, potentially related to a Turner 's transformation diagnosed de maryanne. We reviewed the treatment plan of RCHOP chemotherapy fo r 6 cycles, which will be followed by two years of maintenance rituximab therapy following t he PRIMA protocol, which is appropriate for Rios based upon the follicular component of his cancer. We discussed his poor tolerance for chemotherapy, and extensively discussed the option of s kipping his sixth cycle of chemotherapy and directly proceeding with rituximab maintenance-R etta will reflect upon this option and let me know when he returns on November 07, 2016. Lymphedema of left lower extremity Review of Systems: Constitutional: Reports energy level is not good. Reports nausea was much worse this time- "when I take the prednisone it is worse, seems to be worst 5-7 days after the treatments". R eports sweats on head occasionally, not as bad as used to be and not soaking sheets lately. Denies high fevers, shaking chills, anorexia, vomiting, weight loss. Appetite without change s. Ear, Nose, Mouth, Throat: Reports dysphagia- "I have to concentrate to swallow". Denies tin nitus. Cardiovascular: Reports chest discomfort that was mid chest, states that is was after chemo - "felt heavy across chest and not sure how long it lasted, happened a couple times". Denies shortness of breath, dyspnea on exertion, palpitations or orthopnea. Respiratory: Reports having cough and trying to get sputum, each time with chemo it gets walden rder to get sputum up. Denies hemoptysis or sputum production. Gastrointestinal: Reports abdominal pain intermittently with nausea, constipation that last s 2-3 days. Denies diarrhea, melena, or bright red blood per rectum. Genitourinary: Denies hematuria or dysuria. Musculoskeletal: Reports joint aches, mostly in feet where toes "come together". Neurologic: Reports numbness/tingling in fingers and toes. Reports occasional headaches. De nies visual changes. Endocrine: Reports left leg continues to swell intermittently. Denies heat/cold intolerance . Hematologic: Denies spontaneous bruising or bleeding. Integumentary: Denies rash, wounds or other skin concerns. Pain: Reports pain at 3/10 in feet in joints with feeling of neuropathy. Note: Here for follow up with labs for isaias check. My chart: active Scheduled Medications: Current Outpatient [...] Lymphedema of left lower extremity Objectives: Temp: 36.6 C (97.8 F) BP: 118/59 mmHg Pulse: 67 Resp: 16 SpO2: 95 % on Min/Max Temp past 24 hours:Temp Av.6 C (97.8 F) Min: 36.6 C (97.8 F) Max: 3 6.6 C (97.8 F) No intake or output data in the 24 hours ending 10/26/169 Wt. Admission: Weight: (!) 139.935 kg (308 lb 8 oz) Wt. Current: Weight: (!) 139.935 kg (308 lb 8 oz) Wt Readings from Last 3 Encounters: 10/26/16 139.935 kg (308 lb 8 oz) 10/17/16 140.479 kg (309 lb 11.2 oz) 10/05/16 137.984 kg (304 lb 3.2 oz) Physical Exam: General: The [...] Rebel, RChristianH., Andie Menezes., Michael Trejo., Michael, TChristianE., Dara, E.T., Fatoumata, P .P.: Toxicity And [...] JOAQUIM SANCHEZ JR. ( ) as of 10/26/2016 18:56 Ref. Range 10/26/2016 08:41 WBC Latest Ref Range: 4.0-11.0 K/uL 1.2 (LL) RBC: Latest Ref Range: 4.30-5.70 M/uL 3.32 (L) Hgb Latest Ref Range: 13.5-18.0 g/dL 10.0 (L) Hct, Final Latest Ref Range: 40.0-51.0 % 29.5 (L) MCV Latest Ref Range: 83.0-101.0 fL 88.6 MCH Latest Ref Range: 28.0-35.0 pg 29.9 MCHC Latest Ref Range: 32.0-36.0 g/dL 33.8 RDW-CV Latest Ref Range: <15.0 % 19.1 (H) Platelet Count Latest Ref Range: 140-440 K/uL 72 (L) MPV Latest Units: fL 8.3 Absolute Neutrophils Latest Ref Range: 1.80-8.50 K/uL 0.60 (L) Absolute Lymphocytes Latest Ref Range: 0.60-3.20 K/uL 0.40 (L) Absolute Monocytes Latest Ref Range: 0.00-1.00 K/uL 0.10 Absolute Eosinophils Latest Ref Range: 0.00-0.40 K/uL 0.00 Absolute Basophils Latest Ref Range: 0.00-0.10 K/uL 0.00 % Neutrophils Latest Ref Range: 45.0-82.0 % 53.1 % Lymphocytes Latest Ref Range: 20.0-45.0 % 33.2 % Monocytes Latest Ref Range: 4.0-12.0 % 9.1 % Eosinophils Latest Ref Range: 0.0-5.0 % 2.8 % Basophils Latest Ref Range: 0.0-1.0 % 1.8 (H) NA Latest Ref Range: 136-149 mmol/L 134 (L) K Latest Ref Range: 3.5-5.1 mmol/L 3.8 Chloride Latest Ref Range: 98-109 mmol/L 101 Carbon dioxide Latest Ref Range: 24-31 mmol/L 27 ANION GAP Latest Ref Range: 3-16 mmol/L 6 GLUCOSE Latest Ref Range: 70-109 mg/dL 110 (H) BUN Latest Ref Range: 7-18 mg/dL 17 BUN/CREA Unknown 17.2 Creatinine Latest Ref Range: 0.60-1.30 mg/dL 0.99 ALBUMIN Latest Ref Range: 3.2-5.0 g/dL 3.4 Albumin/Globulin ratio Latest Ref Range: 0.8-2.0 1.8 Total protein Latest Ref Range: 6.0-7.8 g/dL 5.3 (L) EGFR IF NOT Latest Ref Range: >=60 mL/min/1.73m2 >60 Calcium Latest Ref Range: 8.3-10.5 mg/dL 9.1 ALK PHOS Latest Ref Range: 40-110 U/L 52 ALT (SGPT) (REF) Latest Ref Range: 6-45 U/L 22 AST (SGOT) (REF) Latest Ref Range: 10-42 U/L 20 LDH TOTAL Latest Ref Range: 91-180 U/L 156 BILIRUBIN TOTAL Latest Ref Range: 0.1-1.5 mg/dL 0.5 GLOBULIN Latest Ref Range: 2.1-3.8 g/dL 1.9 (L) Multidisciplinary Care: Palliative Care: Patient's Medications New Prescriptions No medications on file Modified Medications No medications on file Discontinued Medications No medications on file Discharge Instructions: Two types of B-cell lymphoma occurred in transformation; Diffuse Large B-Cell lymphoma and Follicular B-Cell lymphoma. In all likelihood, you cancer started out as a Follicuar B-cell lymphoma, and at some point part of the Follicular B-Cell lymphoma transformed into a Diffuse Large B-Cell Lymphoma. Th is is a well characterized process call Turner's Transformation. This occurs 15% of time wi th Follicular B-Cell lymphomas. The Diffuse Large B-cell lymphoma is much more aggressive an d eminently life threatening. The initial treatment for this process is 6 cycles of RCHOP chemotherapy. In general the Diffuse Large B-Cell lymphomas are cured 80% time with chemotherapy. The Adrian hter's transformation is probably a little less likely to be cured. For follicular lymphomas, the general approach is to use the rituximab as a maintenance pro gram after the completion of the chemoimmunotherapy (RCHOP). The standard maintenance is one dose of rituximab every 2 months for two years. Rituxan is big bag that takes the longest t o administer, but does not cause nausea, vomiting, fatigue, hair loss, loosening of fingerna ils and toenails, dyspepsia, low blood counts, numbness of the fingers and toes. We will do another CT scan after your sixth RCH(O)P chemotherapy. JOAQUIM TEJEDA MD Portions of this chart may have been created with [employer] voice recognition software. Occasi onal wrong-word or [...] ROB | | | | | | [id number] | | | | | | | | +--------+---------+ + + + documented as of this encounter Procedures + +--------+ + + + | Procedure Name | Priori | Date/Time | Associated Diagnosis | Comments | | | ty | | | | + +--------+ + + + | CBC WITH | STAT | 10/26/2016 | Diffuse large | Results for this | | DIFFERENTIAL | | 8:41 AM | B-cell lymphoma of | procedure are in the | | | | PST | intra-abdominal | results section. | | | | | lymph nodes (HCC) | | | | | | Lymphedema of left | | | | | | lower extremity | | + +--------+ + + + | LACTATE | STAT | 10/26/2016 | Diffuse large | Results for this | | DEHYDROGENASE | | 8:41 AM | B-cell lymphoma of | procedure are in the | | | | PST | intra-abdominal | results section. | | | | | lymph nodes (HCC) | | | | | | Lymphedema of left | | | | | | lower extremity | | + +--------+ + + + | COMPREHENSIVE | STAT | 10/26/2016 | Diffuse large | Results for this | | METABOLIC PANEL | | 8:41 AM | B-cell lymphoma of | procedure are in the | | | | PST | intra-abdominal | results section. | | | | | lymph nodes (HCC) | | | | | | Lymphedema of left | | | | | | lower extremity | | + +--------+ + + + documented in this encounter Results Lactate Dehydrogenase (10/26/2016 8:41 AM PST) + +-------+ + + + | Component | Value | Ref Range | Performed | Pathologist | | | | | At | Signature | + +-------+ + + + | LDH TOTAL | 156 | 91 - 180 U/L | [facility] [...] + | [facility] | [address] | [place] | [phone] | | [facility] | | [address] | | | - LABORATORY | | | | + + + + + Comprehensive Metabolic Panel (10/26/2016 8:41 AM PST) + + + + + + | Component | Value | Ref Range | Performed | Pathologist | | | | | At | Signature | + + + + + + | Na | 134 (L) | 136 - 149 | [facility] | [...] + + + + | Cl | 101 | 98 - 109 mmol/L | [facility] [...] + + + + | Creatinine | 0.99 | 0.60 - 1.30 | [facility] | [...] mL/min/1.73m2 | [facility] | | | DUTCH | RATE,ESTIMATED | | MEDICAL | | | | mL/min/1.33h6Ezwy than | | CENTER - | | [...] + + + + | Calcium | 9.1 | 8.3 - 10.5 | [facility] | | | | | mg/dL | [facility] | | | | | | MEDICAL | | | | | | CENTER - | | | | | | LABORATORY | | + + + + + + | Albumin | 3.4 | 3.2 - 5.0 g/dL | [facility] [...] + + + + | Total | 5.3 (L) | 6.0 - 7.8 g/dL | [...] + + + + | ALT | 22Comment: This is an | 6 - 45 [...] + + + + | BUN/Creatin | 17.2 | | [facility] | | | ine [...] | + + + + + | [facility] | [address] | [place] | [phone] | | [facility] | | [address] | | | - LABORATORY | | | | + + + + + CBC with Differential (10/26/2016 8:41 AM PST) + + + + + + | Component | Value | Ref Range | Performed | Pathologist | | | | | At | Signature | + + + + + + | WBC | 1.2 (LL)Comment: | 4.0 - 11.0 K/uL | [facility] | | | | Critical Result called | | [facility] | | | | to and read back by | | MEDICAL | | | | Sherin Canas on | | CENTER - | | | | 10/26/2016 at 9:03 by Abdoul | | LABORATORY | | | | Brigido Sage. | | | | + + + + + + | RBC | 3.32 (L) | 4.30 - 5.70 | [facility] | | | | | M/uL | [facility] | | | | | | MEDICAL | | | | | | CENTER - | | | | | | LABORATORY | | + + + + + + | Hemoglobin | 10.0 (L) | 13.5 - 18.0 | [facility] | | | | | g/dL | [facility] | | | | | | MEDICAL | | | | | | CENTER - | | | | | | LABORATORY | | + + + + + + | Hematocrit | 29.5 (L) | 40.0 - 51.0 % | [facility] | | | | | | [facility] | | | | | | MEDICAL | | | | | | CENTER - | | | | | | LABORATORY | | + + + + + + | MCV | 88.6 | 83.0 - 101.0 fL | [facility] [...] + + + + | MCHC | 33.8 | 32.0 - 36.0 | [facility] | | | | | g/dL | [facility] | | | | | | MEDICAL | | | | | | CENTER - | | | | | | LABORATORY | | + + + + + + | RDW-CV | 19.1 (H) | <15.0 % | [facility] | | | | | | [facility] | | | | | | MEDICAL | | | | | | CENTER - | | | | | | LABORATORY | | + + + + + + | Platelet | 72 (L) | 140 - 440 K/uL | [...] + + + + | % | 53.1 | 45.0 - 82.0 % | [facility] | | | Neutrophils | | | [facility] | | | | | | MEDICAL | | | | | | CENTER - | | | | | | LABORATORY | | + + + + + + | % | 33.2 | 20.0 - 45.0 % | [facility] [...] + + + + | % | 2.8 | 0.0 - 5.0 % | [facility] | | | Eosinophils | | | [facility] | | | | | | MEDICAL | | | | | | CENTER - | | | | | | LABORATORY | | + + + + + + | % Basophils | 1.8 (H) | 0.0 - 1.0 % | [...] + + + + | Absolute | 0.40 (L) | 0.60 - 3.20 | [facility] | | | Lymphocytes | | K/uL | [facility] | | | | | | MEDICAL | | | | | | CENTER - | | | | | | LABORATORY | | + + + + + + | Absolute | 0.10 | 0.00 - 1.00 | [facility] | [...] ST. | [address] | [place], [place] | [phone] | | [facility] | | [address] | | | - LABORATORY | | [...]
--- OUTSIDE RECORDS SUMMARY | ~2020-01-25 | XMS | Encounter Summary ---
Demographics + + + | Address | [address] | | | [place] [address] | + + + | Home Phone | | + + + | Preferred Language | Unknown | + + + | Marital Status | | + + + | Episcopalian Affiliation | 1013 | + + + [...] [place] | | | | | [address] | | + + + + + Care Team Providers + +------+ + | Care Mapping Specialist Name | Role | Phone | [...] + + | 10/26/ | Hospital | [facility] | [facility], | Lymphedema of left | | 2017 | Encounter | [facility] | Joaquim Benson MD [address] | lower extremity | | | | [facility]COLOGY CLINIC [address] | [address] [place] | (Primary Dx); | | | | [address] | [place] [address] | Diffuse large B-cell | | | | [place] [address] | [phone] | lymphoma of | | | | [phone] | | intra-abdominal | | | | [...] nt from the original. Hematology/Oncology Progress Note [place], [place] Pt. Name/Age/: Joaquim Sanchez Jr. 66 y.o. 1950 Med. Record Number: [id number] Date of admission: 10/26/2016 Identifying Statement: Joaquim Sanchez Jr. is a 66 y.o. male from [address] [address] with Diffuse Large B-Cell Lymphoma. The patient [...] extremity. CT abdomen/Pelvis with contrast 2016 ([facility]). Ex tensive periaortic lymphadenopathy (1.8 cm and 2.1 cm respectively), extensive adenopathy ex tending out along the left common iliac artery and encasing the left external iliac artery ( 4.4 cm) with compromise of the left external iliac vein. 2. Open laparotomy with LEFT ileal retroperitoneal lymph node biopsy ([facility], [facility]) June 242015. Specimen #[id number] ([facility]ology); Diffuse Large [...] 04, 2016. 10. CT Abdomen/Pelvis at [facility] [place] on September 12, 2016; Positive Response [...] this chart may have been created with [employer] voice recognition software. Occasi onal wrong-word or [...] ROB | | | | | | [id number] | | | | | | | [...] + | [facility] | [address] | [place] | [phone] | | [facility] | | [address] | | | - LABORATORY | | [...] mL/min/1.73m2 | [facility] | | | [place] | RATE,ESTIMATED | | MEDICAL | | | | mL/min/1.11o9Yfyb than | | CENTER - | | [...] [address] | [place] | [phone] | | [facility] | | [address] | | | - LABORATORY | | [...] ST. | [address] | [place], [place] | [phone] | | [facility] | | [address] | | | - LABORATORY | | [...]
--- OUTSIDE RECORDS SUMMARY | ~2020-01-25 | XMS | Encounter Summary ---
Demographics + + + | Address | [address] | | | [place] [address] | + + + | Home Phone | | + + + | Preferred Language | Unknown | + + + | Marital Status | | + + + | Gnosticist Affiliation | 1013 | + + + | Race | Unknown | + + + | Ethnic Group | Unknown | + + + Author + + + | Author | [facility] | | | and [place] | + + + | Organization | [facility] | | | [...] [place] | | | | | [address] | | + + + + + Care Team Providers + +------+ + | Care Marketing Project Lead Name | Role | Phone | + [...] | Primary | Nikhil, | [address] | | | | | cutaneous | Joaquim Benson, | [place], | | | | | diffuse | MD [address] | [place] | | | | | large cell | [address] | [address] | | | | | B-cell | [place], | Phone: | | | | | lymphoma | [place] [address] | [phone] | | | | | (HCC) | Phone: | Fax: | | | | | Procedures | [phone] | [phone] | | | | | ECHO | Fax: | | | | | | Complete | [phone] | | +--------+--------+ + + + + [...] + | 07/21/ | Hospital | [facility] | Nikhil, | Primary cutaneous | | 2016 | Encounter | MED CTR ECHO [address] | Joaquim Benson MD [address] | diffuse large cell | | | | [address] [place] | [address] [place] | B-cell lymphoma | | | | [place] [address] | [place] [address] | ([facility]) | | | | [phone] | [phone] | | | | | | | [...] ROB | | | | | | [address] | | | | | | | [...] Patient Name DANIEL | | | Room Ferny JOAQUIM Patient Number | | | [id number] Date of Study 07/21/2016 Visit Number | | | [id number] Referring Physician | | | NIKHIL Benson Number Date of 1950 | | | Geophysics Professor SUNSHINE ROSA [facility] Age | | | 66 year(s) Interpreting YAMEL DYKES MD | | | Area Field Manager Gender | | | Male Nurse Procedure [...] Index: 17 mL/m^2 | | | EF Sgecfwfcp32% Left Ventricle Diastolic Dimension: | | | [...] | LA Vol/BSA Index: 17 mL/m^2 EF Cobepqgdw03% | | | | | | Left [...] Room Number JOAQUIM | | Patient Number [id number] Date of Study 07/21/2016 Visit Number | | [id number] Referring Physician NIKHIL Benson | | Number Date of 1950 Geophysics Professor SUNSHINE ROSA [facility] Age | | 66 year(s) Interpreting YAMEL DYKES MD | | Area Field Manager Gender Male NurseProcedureType of Study TTE | [...] Vol/BSA Index: | | 17 mL/m^2 EF Apxovitju18% Left Ventricle Diastolic Dimension: | | 4.8 [...] | LA Vol/BSA Index: 17 mL/m^2 EF Asyloomwj28% | | | | Left Ventricle | [...]
--- OUTSIDE RECORDS SUMMARY | ~2020-01-25 | XMS | Encounter Summary ---
Demographics + + + | Address | [address] | | | [place] [address] | + + + | Home Phone | | + + + | Preferred Language | Unknown | + + + | Marital Status | | + + + | Jainism Affiliation | 1013 | + + + | Race | Unknown | + + + | Ethnic Group | Unknown | + + + Author + + + | Author | [facility] | | | and [place] | + + + | Organization | [facility] | | [...] [place] | | | | | [address] | | + + + + + Care Team Providers + +------+ + | Care Ground Operations Supervisor Name | Role | Phone | [...] + + | 08/14/ | Hospital | [facility] | [facility], | Diffuse large B-cell | | 2016 | Encounter | [facility] | Joaquim Benson MD [address] | lymphoma of | | | | [facility]Y CLIN[facility] [address] | [address] [place] | intra-abdominal | | | | [address] [place] | [place] [address] | lymph nodes (HCC) | | | | [place] [address] | [phone] | (Primary Dx) | | | | [phone] | | | +--------+ + + + [...] make you sleepy. See Sarah tomorrow at [place] for your Neulasta injection, remember to check [...] nt from the original. Hematology/Oncology Progress Note [place], [place] Pt. Name/Age/: Joaquim Galindo 66 y.o. 1950 Med. Record Number: [id number] Date of admission: 08/14/2016 Identifying Statement: Joaquim Galindo is a 66 y.o. male from [address] [address] with Diffuse Large B-Cell Lymphoma. The patient [...] lower extremity. CT abdomen/Pelvis with contrast 2016 ([facility]). Ex tensive periaortic lymphadenopathy (1.8 cm and 2.1 cm respectively), extensive adenopathy ex tending out along the left common iliac artery and encasing the left external iliac artery ( 4.4 cm) with compromise of the left external iliac vein. 2. Open laparotomy with LEFT ileal retroperitoneal lymph node biopsy (Praveen, ESTEE) June 242015. Specimen #[id number] ([facility]ology); Diffuse Large B-Cell lymph [...] chemotherapy. Neulasta to be administered tomorrow at [facility] in [place], [place]. Patient will exhaust his current supply [...] for one day only in last w [place]. Denies abdominal pain, melena, or bright red [...] adenoidectomy Inguinal hernia repair incarcerated Stent 2014 [facility] Social History Social History Marital Status: [...] in the Assessment and Plan. Results for DANIELJOAQUIM YU ( ) as of 08/14/2016 12:41 Ref. [...] with Differential STAT, ONE TIME, Sun08/14/16 at 0816, For 1 occurrence OrderHistory Nursing Orders OK [...] chart may have been created with [employer] voice recognition software. Occasi onal wrong-word or [...] | | | | | [place] | | | | | | [id number] | | | | | | | | +--------+---------+ + + + documented as of this encounter Visit Diagnoses + + | Diagnosis | + + | 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
--- OUTSIDE RECORDS SUMMARY | ~2020-01-25 | XMS | Encounter Summary ---
Demographics + + + | Address | [address] | | | [place] [address] | + + + | Home Phone | | + + + | Preferred Language | Unknown | + + + | Marital Status | | + + + | Episcopal Affiliation | 1013 | + + + [...] [place] | | | | | [address] | | + + + + + Care Team Providers + +------+ + | Care Director Agency & Strategic Partnerships Name | Role | Phone | + [...] [place] | | | | | [address] [place] | [place] [address] | | | | | [place] [address] | [phone] | | | | | [phone] | | | +--------+ + + + [...] [place] | | | | | | [address] | | | | | | | | +--------+---------+ + + + documented as of this encounter Visit Diagnoses + + | Diagnosis | + + | Diffuse large B-cell lymphoma of intra-abdominal lymph nodes (HCC) Other malignant | | lymphomas of intra-abdominal lymph nodes | + + documented in this encounter"
--- OUTSIDE RECORDS SUMMARY | ~2020-01-25 | XMS | Encounter Summary ---
Demographics + + + | Address | [address] | | | [place] [address] | + + + | Home Phone [...] [place] | | | | | [address] | | + + + + + Care Team Providers + +------+ + | Care Torch Solderer Name | Role | Phone | + [...] + + | 08/14/ | Hospital | [facility] | [facility], | Diffuse large B-cell | | 2016 | Encounter | MED CTR MEDICAL | Joaquim Benson MD [address] | lymphoma of | | | | ONCOLOGY CLINIC [address] | [address] [place] | intra-abdominal | | | | [address] [place] | [place] [address] | lymph nodes (HCC) | | | | [place] [address] | [phone] | (Primary Dx) | | | | [phone] | | | +--------+ + + + [...] make you sleepy. See Sarah tomorrow at [place] for your Neulasta injection, remember to check [...] nt from the original. Hematology/Oncology Progress Note [place], [place] Pt. Name/Age/: Joaquim Galindo 66 y.o. 1950 Med. Record Number: [id number] Date of admission: 08/14/2016 Identifying Statement: Joaquim Galindo is a 66 y.o. male from [address] [address] with Diffuse Large B-Cell Lymphoma. The patient [...] lower extremity. CT abdomen/Pelvis with contrast 2016 ([facility]). Ex tensive periaortic lymphadenopathy (1.8 cm and 2.1 cm respectively), extensive adenopathy ex tending out along the left common iliac artery and encasing the left external iliac artery ( 4.4 cm) with compromise of the left external iliac vein. 2. Open laparotomy with LEFT ileal retroperitoneal lymph node biopsy (Praveen, [place]EE) June 242015. Specimen #[id number] ([facility]ology); Diffuse Large [...] chemotherapy. Neulasta to be administered tomorrow at [facility] in [place], [place]. Patient will exhaust his current supply [...] for one day only in last w [place]. Denies abdominal pain, melena, or bright red [...] hernia repair incarcerated Stent 2014 [facility] Social History Social History Marital Status: [...] this chart may have been created with [employer] voice recognition software. Occasi onal wrong-word or [...] | | | | | [place] | | | | | | [id number] | | | | | | | | +--------+---------+ + + + documented as of this encounter Visit Diagnoses + + | Diagnosis | + + | 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
--- OUTSIDE RECORDS SUMMARY | ~2020-01-25 | XMS | Encounter Summary ---
Demographics + + + | Address | [address] | | | [place] [address] | + + + | Home Phone [...] [place] | | | | | [address] | | + + + + + Care Team Providers + +------+ + | Care Inspector Insulation Name | Role | Phone | + [...] | | Diffuse | Mohamud, | [address] | | | | | large B-cell | Joaquim C, | [place], | | | | | lymphoma of | MD [address] | [place] [address] | | | | | | [address] | Phone: | | | | | intra-abdomi | [place], | [phone] | | | | | nal lymph | [place] [address] | Fax: | | | | | nodes (HCC) | Phone: | [phone] | | | | | Procedures | [phone] | | | | | | CT Abdomen | Fax: | | | | | | Pelvis w | [phone] | | | | | | Contrast [...] Closed | | Medical | Diagnoses | | | | | | Oncology / | Diffuse | Mohamud, | Mohamud, | | | | Oncology | large B-cell | Joaquim Benson, | Joaquim Benson MD | | | | | lymphoma of | [address] | [address] | | | | | [address] | [address] [place] | | | | | intra-abdomi | [place], | [place], [place] | | | | | nal lymph | [place] [address] | [address] Phone: | | | | | nodes (HCC) | Phone: | [phone] | | | | | Procedures | [phone] | Fax: | | | | | [address] | Fax: | [phone] | | | | | | [phone] | | +--------+--------+ + + + + Encounter Details +--------+ + + + + | Date | Type | Department | Care Team | Description | +--------+ + + + + | 10/09/ | Hospital | [facility] | Mohma[place], | Diffuse large B-cell | | 2018 | Encounter | MED CTR MEDICAL | Joaquim Benson MD [address] | lymphoma of | | | | ONCOLOGY CLINIC [address] | [address] [place] | intra-abdominal | | | | [address] [place] | [place] [address] | lymph nodes (HCC) | | | | [place] [address] | [phone] | (Primary Dx) | | | | [phone] | | | +--------+ + + + [...] + + + | Blood Pressure | 142/76 | 10/09/2017 10:20 AM | | | | | PST | | + + + + + | Pulse | 56 | 10/09/2017 10:20 AM | | | | | PST | | + + + + + | Temperature | 36.4 C (97.5 F) | 10/09/2017 10:20 AM | | | | | PST | | + + + + + | Respiratory Rate | 18 | 10/09/2017 10:20 AM | | | | | PST | | + + + + + | Oxygen Saturation | 96% | 10/09/2017 10:20 AM | | | | | PST | | + + + + + | Inhaled Oxygen | - | - | | | Concentration | | | | + + + + + | Weight | 148.4 kg (327 lb 2.6 | 10/09/2017 10:20 AM | | | | oz) | PST | | + + + + + | Height | - | - | | + + + + + | Body Mass Index | 42.01 | 07/18/2016 4:16 PM | | | [...] encounter Progress Notes Joaquim Tejeda MD - 10/09/2017 10:00 AM PSTFormatting of this note might be differe nt from the original. Hematology/Oncology Progress Note [facility] [place] Pt. Name/Age/: Joaquim Sanchez Jr. 67 y.o. 1950 Med. Record Number: [id number] Date of admission: 10/09/2017 Identifying Statement: Joaquim Sanchez Jr. is a 67 y.o. male from [address] [address] with Mixed Diffuse Large B-Cell/Follicular Lymphoma in [...] lower extremity. CT abdomen/Pelvis with contrast 2016 ([facility]). Ex tensive periaortic lymphadenopathy (1.8 cm and 2.1 cm respectively), extensive adenopathy ex tending out along the left common iliac artery and encasing the left external iliac artery ( 4.4 cm) with compromise of the left external iliac vein. 2. Open laparotomy with LEFT ileal retroperitoneal lymph node biopsy (Praveen, [facility]) June 242015. Specimen #[id number] ([facility] Pathology); Diffuse Large B-Cell [...] September 04, 2016. 10. CT Abdomen/Pelvis at [facility] on September 12, 2016; Positive [...] (PRIMA protocol). 14. Repeat CT scan at [facility], [place], [place] on December 01, [address] [...] [address]. [address] scan at [facility] on April 18, 2017 demonstrated decreased [...] Joaquim Sanchez Jr. 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 Interval history is notable for the fact that Rios has acquired a 32-chamber, pneumatic ly mphedema machine for home use through [facility] home health. Chief complaint is fatigue. Clinical exam is notable for worsening morbid obesity with BMI > 40. This is also likely an exacerbating factor for his lymphedema. Laboratory exam is notable for Grade 1 leukopenia and grade 1 neutropenia, neither of which are dose-limiting. Assessment; Stage III composite B-cell lymphoma. Plan; Proceed with cycle #7 of maintenance rituximab. Return in two months for cycle #8 of a planned 12 cycles of maintenance rituximab. In the interval, repeat CT scan of the abdomen and pelvis to monitor progress of left iliac lymph node chain adenopathy. Review of Systems: REVIEW OF SYSTEMS Constitutional: Reports energy level is down some from last time. Denies high fevers, jazmin ing chills, anorexia, nausea, vomiting, weight loss, or night sweats. Appetite without sims ges. Ear, Nose, Mouth, Throat:Reports had sores in mouth right after last chemo, cleared up, non e since then. Reports tinnitus more frequently since treatment started, lasts a couple of mi nutes. Denies dysphagia. Cardiovascular: Reports shortness of breath with exertion, continues. Reports an episode of a pressure in chest and tightness, not sure when, none since then. Denies shortness of [place] th or palpitations or orthopnea. Respiratory: Denies cough, hemoptysis, or sputum production. Gastrointestinal: Reports occasional diarrhea, 2 episodes in the last couple months. Denie s abdominal pain, constipation, melena, or bright red blood per rectum. Genitourinary: Denies hematuria or dysuria. Musculoskeletal:Reports lots of joint pain, knees, ankles, shoulder, and feet, continues, u nchanged. Neurologic: Reports numbness and tingling in bilateral feet. Reports vision has worsened si nce chemo, unchanged since last visit. Denies headache. Endocrine: Reports lymphedema continues in left leg, swelling in right side as well, unchan ged. Denies heat/cold intolerance. Hematologic: Denies spontaneous bruising [...] by mouth Daily as needed for Anxiety. Multiple Vitamin (MULTIVITAMINS PO) Take by mouth. [...] mouth Daily. (Patient not taking: Reported on 09/24) 30 tablet 1 No current facility-administered medications [...] Objectives: Temp: 36.4 C (97.5 F) BP: 142/76 Pulse: 56 Resp: 18 SpO2: 96 % on Min/Max Temp past 24 hours:No Data Recorded No intake or output data in the 24 hours ending 10/11/17 1158 Wt. Admission: Weight: (!) 148.4 kg (327 lb 2.6 oz) Wt. Current: Weight: (!) 148.4 kg ( 327 lb 2.6 oz) Wt Readings from Last 3 Encounters: 10/09/17 (!) 148.4 kg (327 lb 2.6 oz) 08/13/17 (!) 146.2 kg (322 lb 5 oz) 06/19/17 (!) 142.9 kg (315 lb) Body mass index is 42.01 kg/m. Physical Exam: General: The patient is [...] As published in Am. J. Clin. Oncol.: aDvida Ma., Rebel, R.H., Andie Menezes., Donal Trejo, Michael TDusty., Taty DiamondT., Fatoumata, P .P.: Toxicity And Response Criteria Of The Eastern Cooperative Oncology Group. Am J Clin Onc ol 5:649-655, 1982. The ECOG Performance Status is in the public domain therefore available for public use. To duplicate the scale, please cite the reference above and credit the [place] [employer], Joaquim Aguirre M.D., Group Chair Diagnostic studies: Available data and images were reviewed personally. See reports. Significant results and findings are addressed here or in the Assessment and Plan. Results for JOAQUIM SANCHEZ JR. ( ) as of 10/11/2017 11:46 Ref. Range 10/09/2017 09:03 WBC Latest Ref Range: 4.0 - 11.0 K/uL 3.1 (L) RBC COUNT Latest Ref Range: 4.30 - 5.70 M/uL 4.28 (L) Hgb Latest Ref Range: 13.5 - 18.0 g/dL 12.8 (L) Hct, Final Latest Ref Range: 40.0 - 51.0 % 36.8 (L) MCV Latest Ref Range: 83.0 - 101.0 fL 86.0 MCH Latest Ref Range: 28.0 - 35.0 pg 29.9 MCHC Latest Ref Range: 32.0 - 36.0 g/dL 34.7 RDW-CV Latest Ref Range: <15.0 % 15.7 (H) Platelet Count Latest Ref Range: 140 - 440 K/uL 102 (L) MPV Latest Units: fL 9.0 Absolute Neutrophils Latest Ref Range: 1.80 - 8.50 K/uL 1.90 Absolute Lymphocytes Latest Ref Range: 0.60 - 3.20 K/uL 0.80 Absolute Monocytes Latest Ref Range: 0.00 - 1.00 K/uL 0.30 Absolute Eosinophils Latest Ref Range: 0.00 - 0.40 K/uL 0.10 Absolute Basophils Latest Ref Range: 0.00 - 0.10 K/uL 0.00 % Neutrophils Latest Ref Range: 45.0 - 82.0 % 62.5 % Lymphocytes Latest Ref Range: 20.0 - 45.0 % 25.4 % Monocytes Latest Ref Range: 4.0 - 12.0 % 9.1 % Eosinophils Latest Ref Range: 0.0 - [...] Latest Ref Range: 70 - 109 mg/dL 114 (H) BUN Latest Ref Range: 7 - 18 mg/dL 13 Creatinine Latest Ref Range: 0.60 - 1.30 mg/dL 1.02 BUN/CREA Unknown 12.7 ALBUMIN Latest Ref Range: 3.2 - 5.0 g/dL 3.8 Albumin/Globulin ratio Latest Ref Range: 0.8 - 2.0 1.8 Total protein Latest Ref Range: 6.0 - 7.8 g/dL 5.9 (L) EGFR IF NOT Latest Ref Range: >=60 mL/min/1.73m2 >60 Calcium Latest Ref Range: 8.3 - 10.5 mg/dL 9.9 ALK PHOS Latest Ref Range: 40 - 110 U/L 45 ALT (SGPT) (REF) Latest Ref Range: 6 - 45 U/L 28 AST (SGOT) (REF) Latest Ref Range: 10 - 42 U/L 26 LDH TOTAL Latest Ref Range: 91 - 180 U/L 145 BILIRUBIN TOTAL Latest Ref Range: 0.1 - 1.5 mg/dL 0.5 GLOBULIN Latest Ref Range: 2.1 - 3.8 g/dL 2.1 Pharmacovigilance: Results for JOAQUIM SANCHEZ JR. ( ) as of 11/08/2016 09:09 Ref. Range 10/26/2016 11:35 LVEF-TTE TRANSTHORACIC ECHO Unknown 70 Outside expert review of the the use of maintenance Rituxan is received and reviewed. Refer ences are made to Carlton Bowser, Daniel Hurt, Genaro Chen, Dorothea Arthur to, Jus Reyes, Carolyn Angel, and Diamond Johnson "Late-Onset Neutropenia in Pat ients Treated with Rituximab for Non-Hodgkin's Lymphoma" International Journal of Hematology . June 2006, Volume 84, Issue 3, pp 242-247 and Faustino Pepe, Anupam Azevedo, Horacio Brooks, Berkley Downey, Jesusita BorJs mathews Giulia Rugger i, and Aman Power "Delayed-Onset Peripheral Blood Cytopenia after Rituximab: Frequency a nd Risk Factor Assessment in a Consecutive Series of 77 Treatments" Leukemia & Lymphoma 2006 , Vol. 47, No. 6, pp 4817-4276. In the first article, an observational study [...] Medications No medications on file Discontinued Medications CYANOCOBALAMIN (VITAMIN B-12) 100 MCG TABLET Take 50 mcg by mouth Daily. FUROSEMIDE (LASIX) 20 MG TABLET Take 20 mg by mouth Daily. ONDANSETRON (ZOFRAN) 8 MG TABLET Take 1 tablet by mouth 2 times daily. For two days aft er each chemo and then may take one tab every 8 hours if needed for nausea Procedure note: Day 1, Rituxan every 2 months x 2 years # 7 (56-day cycle) Completed; Released on 10/09/2017; Originally planned for 10/09/2017 Labs Lactate Dehydrogenase STAT, ONE TIME, 10/09/17 at 0903, For 1 occurrence OrderHistory Comprehensive Metabolic Panel STAT, ONE TIME, e 10/09/17 at 0903, For 1 occurrence OrderHistory CBC with Differential STAT, ONE TIME, Sun10/09/17 at 0903, For 1 occurrence OrderHistory PRN Medications ethyl chloride spray (Discontinued - Patient Discharge) Topical, PRN, Pain, Starting e 10/09/17 at 0902 OrderHistory Nursing Orders OK to proceed with chemotherapy (Not Released) 10/09/17-- INFORMED CONSENT: The nature and character of the proposed treatment with Rituximab #7 main tenance and the anticipated results of the proposed treatment with Rituximab #7 maintenance ;recognized alternative forms of treatment, including non-treatment; the risks benefits, and side effects of proposed treatment, alternative treatments and non-treatment were discussed with the patient who consents to proceed with treatment with Rituximab #7 maintenance. The treating provider has examined the patient and reviewed the diagnostic data, including labo ratory data, and deems that it is safe and appropriate to proceed with treatment with Ritux imab #7 maintenance.Electronically signed by: JOAQUIM TEJEDA MD 10/09/2017 10:42. O rderHistory Plans for discharge (Not Released) Schedule CT scan abdomen/pelvis at [facility] QFU CBC,CMP,LDH Port DRAW IN 2 months with 4 hour infusion. OrderHistory Pre-Medications acetaminophen (TYLENOL) tablet 650 mg 650 mg, Oral, ONCE, e 10/09/17 at 1115, For 1 dose Give 30 minutes prior to riTUXimab. OrderHistory famotidine (PEPCID) injection 20 mg 20 mg, Intravenous, ONCE, e 10/09/17 at 1115, For 1 dose Prior to administration, prepare a 20 mg dose by diluting 2 mL of famotidine 10 mg/mL to 10 mL with normal saline. OrderHistory CHEMOTHERAPY riTUXimab (RITUXAN) 1,000 mg in sodium chloride 0.9% 1,000 mL infusion 1,000 mg (rounded from 997.5 mg = 375 mg/m2 2.66 m2 Treatment plan recorded BSA), Intra venous, ONCE, e 10/09/17 at 1145, For 1 dose Initial infusion: [...] (5 mL), Intercatheter, PRN, Line Care, Starting Sun10/09/17 at 1056 OrderHis tory PRN Medications LORazepam (ATIVAN) injection 1 mg [...] infusion, activate code blue and notify MD. OrderHistory JOAQUIM TEJEDA MD Portions of this chart may have been created with [employer] recognition software. Occasi onal wrong-word or sound-alike [...] | | | | | [place], [place] | | | | | | [id number] | | | | | | | [...] | e | B-cell lymphoma of | 10/09/2017, Expires: | | | | | intra-abdominal | 10/09/2018 | | | | | lymph nodes (HCC) | | + +---------+--------+ + + | Comprehensive | Lab | STAT | Diffuse large | 1 Occurrences | | Metabolic Panel | | | B-cell lymphoma of | starting 10/09/2017 | | | | | intra-abdominal | until 10/09/2018 | | | | | lymph nodes (HCC) | | + +---------+--------+ + + documented as of this encounter Procedures + +--------+ + + + | Procedure Name | Priori | Date/Time | Associated Diagnosis | Comments | | | ty | | | | + +--------+ + + + | IMAGING REPORT - | | 11/21/2017 | | Results for this | | EXTERNAL SCAN | | 12:00 AM | | procedure are in the | | | | PST | | results section. | + +--------+ + + + documented in this encounter Results IMAGING REPORT - EXTERNAL SCAN (11/21/2017 12:00 AM PST) + + + | [...]
--- OUTSIDE RECORDS SUMMARY | ~2020-01-25 | XMS | Encounter Summary ---
Demographics + + + | Address | [address] | | | [place] [address] | + + + | Home Phone [...] + + + + + | Mara Gailndo | ECON | [address] | | | | | [place] | | | | | [address] | | + + + + + Care Team Providers + +------+ + | Care Casework Manager Name | Role | Phone | [...] | Primary | Nikhil, | [address] | | | | | cutaneous | Joaquim Benson, | [place], | | | | | diffuse | MD [address] | [place] | | | | | large cell | [address] | [address] | | | | | B-cell | [place], | Phone: | | | | | lymphoma | [place] [address] | [phone] | | | | | (HCC) | Phone: | Fax: | | | | | Procedures | [phone] | [phone] | | | | | ECHO | Fax: | | | | | | Complete | [phone] | | +--------+--------+ + + + + [...] + + | 07/21/ | Hospital | [facility] | Nikhil, | Primary cutaneous | | 2016 | Encounter | MED CTR ECHO [address] | Joaquim Benson MD [address] | diffuse large cell | | | | [place] | [address] [place] | B-cell lymphoma | | | | [place] [address] | [place] [address] | ([facility]) | | | | [phone] | [phone] | | | | | | | [...] [place] | | | | | | [address] | | | | | | | [...] Ferny JOAQUIM Patient Number | | | [id number] Date of Study 07/21/2016 Visit Number | | | [id number] Referring Physician | | | NIKHIL Benson Number Date of 1950 | | | Sculpture Conservator SUNSHINE ROSA [facility] Age | | | 66 year(s) Interpreting YAMEL DYKES MD | | | Safety Companion Gender | | | Male Nurse Procedure [...] Index: 17 mL/m^2 | | | EF Nelutavcp12% Left Ventricle Diastolic Dimension: | | | [...] | LA Vol/BSA Index: 17 mL/m^2 EF Slzgrytpm58% | | | | | | Left [...] Room Number JOAQUIM | | Patient Number [id number] Date of Study 07/21/2016 Visit Number | | [id number] Referring Physician NIKHIL Benson | | Number Date of 1950 Sculpture Conservator SUNSHINE ROSA [facility] Age | | 66 year(s) Interpreting YAMEL DYKES MD | | Safety Companion Gender Male NurseProcedureType of Study TTE | [...] Vol/BSA Index: | | 17 mL/m^2 EF Ufryfsana44% Left Ventricle Diastolic Dimension: | | 4.8 [...] | LA Vol/BSA Index: 17 mL/m^2 EF Wndrdgcvk65% | | | | Left Ventricle | [...]
--- OUTSIDE RECORDS SUMMARY | ~2020-01-25 | XMS | Encounter Summary ---
Demographics + + + | Address | [address] | | | [place] [address] | + + + | Home Phone [...] [place] | | | | | [address] | | + + + + + Care Team Providers + +------+ + | Care Traffic Lieutenant Name | Role | Phone | + [...] large b-cell | Gerber Benson, | [address] [place] | | | | | lymphoma, | MD [address] | [place], | | | | | intra-abdomi | [address] | [place] [address] | | | | | nal lymph | [place], | Phone: | | | | | nodes (HCC) | [place] [address] | [phone] | | | | | Procedures | Phone: | Fax: | | | | | [place] | [phone] | [phone] | | | | | RITUXIMAB | Fax: | | | | | | INJECTION, | [phone] | | | | | | 100 [...] | | | | | | MI IV | | | | | | | INFUSION, | | | | | | | HYDRATION, | | | | | | | EA ADD HOUR | | | | | | | MI | | | | | | [...] | | | | | | MI | | | | | | | FOSAPREPITAN | | | | | | | T INJECTION, | | | | | | | 1 MG MI | | | | | | | PREDNISONE | | | | | | | IR OR DR | | | | | | | ORAL 1MG MI | | | | | | | | | | | | | | CYCLOPHOSPHA | | | | | | | MIDE 100 MG | | | | | | | INJ MI | | | | | | | DOXORUBICIN | | | | | | | HCL | | | | | | | INJECTION, | | | | | | | 10 MG MI | | | | | | | VINCRISTINE | | | | | | | SULFATE 1 MG | | | | | | | INJ MI | | | | | | [...] | | | | | | [place] | | | | | | | INJECTION, | | | | | | | PEGFILGRASTI | | | | | | | M 6MG MI | | | | | | [...] + + + + | 01/01/ | [facility] | [facility] | Mohamud, | Diffuse large B-cell | | 2017 | Encounter | MED CTR CHEMO | Gerber Benson MD [address] | lymphoma of | | | | INFUSION [address] | [address] [place] | intra-abdominal | | | | [place], | [place] [address] | lymph nodes (HCC) | | | | [place] [address] | [phone] | | | | | [phone] | | | +--------+ + + + [...] | | | | | [place] | | | | | | [address] | | | | | | | [...] | | | | | g/dL | [facility] | | | | [...] | | | Count | | | [facility] | | [...] 4.9 | 0.0 - 5.0 % | [facility] [...] [address] | [place] | [phone] | | [facility] | | [address] | | | - LABORATORY | | [...] 14 | 7 - 18 mg/dL | [facility] | | | | | | [facility] | | | [facility] | MEDICAL | | | | | | CENTER - | | | | | | LABORATORY | | + + + + + + | Creatinine | 0.89 | 0.60 - 1.30 | [place] | | | | | mg/dL | [facility] | | | | | | MEDICAL | | | | | | CENTER - | | | | | | LABORATORY | | + + + + + + | eGFR if not | >60Comment: GLOMERULAR | >=60 | [place] | | | | FILTRATION | mL/min/1.73m2 | [facility] | | | SLOVENIAN | RATE,ESTIMATED | | MEDICAL | | | | mL/min/1.30v6Barr than | | CENTER - | | [...] [address] | [place] | [phone] | | [facility] | | [address] | | | - LABORATORY | | [...] ST. | [address] | [place] | [phone] | | [facility] | | [address] | | | - LABORATORY | | [...] mg, Oral, ONCE, Mon | | 17 10:24 | | | [...]
--- OUTSIDE RECORDS SUMMARY | ~2020-01-25 | XMS | Encounter Summary ---
Demographics + + + | Address | [address] | | | [place] [address] | + + + | Home Phone | | + + + | Preferred Language | Unknown | + + + | Marital Status | | + + + | Baptist Affiliation | 1013 | + + + [...] [place] | | | | | [address] | | + + + + + Care Team Providers + +------+ + | Care End Matcher Name | Role | Phone | + [...] | | ONCOLOGY CLINIC [address] | [address] [facility] | | | | | [address] | [place] [address] | | | | | [place] [address] | [phone] | | | | | [phone] | | | +--------+ + + + [...] [place] | | | | | | [address] | | | | | | | | +--------+---------+ + + + documented as of this encounter Visit Diagnoses Not on filedocumented in this encounter"
--- OUTSIDE RECORDS SUMMARY | ~2020-01-25 | XMS | Encounter Summary ---
Demographics + + + | Address | [address] | | | [place] [address] | + + + | Home Phone [...] [place] | | | | | [address] | | + + + + + Care Team Providers + +------+ + | Care Stitcher Operator Name | Role | Phone | [...] | | | | | | [place] [id number] | | | | | | [phone] | | | +--------+ + + + [...] [place] | | | | | | [address] | | | | | | | | +--------+---------+ + + + documented as of this encounter Visit Diagnoses Not on filedocumented in this encounter"
--- OUTSIDE RECORDS SUMMARY | ~2020-01-25 | XMS | Encounter Summary ---
Demographics + + + | Address | [address] | | | [place] [address] | + + + | Home Phone | | + + + | Preferred Language | Unknown | + + + | Marital Status | Unknown | + + + | Congregational Affiliation | Unknown | + + + | Race | Unknown | + + + | Ethnic Group | Unknown | + + + Author + + + | Author | [facility] | + + + | Organization | [facility] | + + + | Address | Unknown | + + + | Phone | Unavailable | + + + Care Team Providers + +------+ + | Care Mail Teller Name | Role | Phone | + +------+ + PCP | Unavailable | + +------+ + Encounter Details +--------+ + + + + | Date | Type | Department | Care Team | Description | +--------+ + + + + | 07/21/ | Abstract | [facility] | Clinic, Surgery | | | 2014 | | [place] at [facility] [address] | | | | | | Shauna Martin | | | | | | Mailcode: [place] | | | | | | [facility] and | | | | | | [facility], [facility] [address] | | | | | | [place], [place] | | | | | | [address] | | | | | | [phone] | | | +--------+ + + + [...]
--- OUTSIDE RECORDS SUMMARY | ~2020-01-25 | XMS | Encounter Summary ---
Demographics + + + | Address | [address] | | | [place] [address] | + + + | Home Phone [...] | [facility] | | [...] [place] | | | | | [address] | | + + + + + Care Team Providers + +------+ + | Care Tech Brazer Tester Name | Role | Phone | [...] + + | 06/19/ | Hospital | [facility] | Mohamud, | Diffuse large B-cell | | 2017 | Encounter | MED CTR MEDICAL | Joaquim Benson MD [address] | lymphoma of | | | | ONCOLOGY CLINIC [address] | [address] [place] | intra-abdominal | | | | [address] [place] | [place] [address] | lymph nodes (HCC) | | | | [place] [address] | [phone] | | | | | [phone] | | | +--------+ + + + [...] from the original. Hematology/Oncology Progress Note [facility] [place] Pt. Name/Age/: Joaquim Leon Josie Jerez 66 y.o. 1950 Med. Record Number: [id number] Date of admission: 06/19/2017 Identifying Statement: Joaquim Leon Josie ChristiansonChristian is a 66 y.o. male from [address] [address] with Mixed Diffuse Large B-Cell/Follicular Lymphoma in [...] CT abdomen/Pelvis with contrast 2016 ([facility]). Ex tensive periaortic lymphadenopathy (1.8 cm and 2.1 cm respectively), extensive adenopathy ex tending out along the left common iliac artery and encasing the left external iliac artery ( 4.4 cm) with compromise of the left external iliac vein. 2. Open laparotomy with LEFT ileal retroperitoneal lymph node biopsy ([place], [facility]) June 242015. Specimen #[id number] ([facility]ology); Diffuse Large B-Cell lymph raciel, [...] September 04, 2016. 10. CT Abdomen/Pelvis at [facility] on September 12, 2016; Positive Response [...] (PRIMA protocol). 14. Repeat CT scan at [place], [place] on December 01, [address] [...] [address]. [address] scan at [facility] on April 18, 2017 demonstrated decreased left [...] Am. J. Clin. Oncol.: Davida Ma., Rebel RChristianH., Andie Menezes., Michael Trejo., Michael, TDusty., [...] 2006 , Vol. 47, No. 6, pp 5470-7128. In the first article, an observational study [...] observational study, by Marques et al from [facility] th at reports neutropenia developed in [...] this chart may have been created with [employer] voice recognition software. Occasi onal wrong-word or [...] | | | | | [place] | | | | | | [address] | | | | | | | | +--------+---------+ + + + documented as of this encounter Visit Diagnoses + + | Diagnosis | + + | Diffuse large B-cell lymphoma of intra-abdominal lymph nodes (HCC) Other malignant | | lymphomas of intra-abdominal lymph nodes | + + documented in this encounter
--- OUTSIDE RECORDS SUMMARY | ~2020-01-25 | XMS | Encounter Summary ---
Demographics + + + | Address | [address] | | | [place] [address] | + + + | Home Phone | | + + + | Preferred Language | Unknown | + + + | Marital Status | | + + + | Taoist Affiliation | 1013 | + + + | Race | Unknown | + + + | Ethnic Group | Unknown | + + + Author + + + | Author | [facility] | | | and [place] | + + + | Organization | [facility] [...] [place] | | | | | [address] | | + + + + + Care Team Providers + +------+ + | Care Cylinder Sander Operator Name | Role | Phone | [...] + + | 07/20/ | Telephone | [facility] | Patricia Mercado, | Chemotherapy | | 2015 | | MED CTR CHEMO | RN | | | | | INFUSION [address] | | | | | | [place], | | | | | | [place] [address] | | | | | | [phone] | | | +--------+ + + + [...] | | | | | [place], [place] | | | | | | [address] | | | | | | | | +--------+---------+ + + + documented as of this encounter Visit Diagnoses Not on filedocumented in this encounter"
--- OUTSIDE RECORDS SUMMARY | ~2020-01-25 | XMS | Encounter Summary ---
Demographics + + + | Address | [address] | | | [place] [address] | + + + | Home Phone | | + + + | Preferred Language | Unknown | + + + | Marital Status | | + + + | Baptist Affiliation | 1013 | + + + | Race | Unknown | + + + | Ethnic Group | Unknown | + + + Author + + + | Author | [facility] | | | and [place] | + + + | Organization | [facility] | | | [...] [place] | | | | | [address] | | + + + + + Care Team Providers + +------+ + | Care Potato Chip Cooker Machine Name | Role | Phone | [...] large b-cell | Gerber Benson, | [address] [place] | | | | | lymphoma, | MD [address] | [place], | | | | | intra-abdomi | [address] | [place] [address] | | | | | nal lymph | [place], | Phone: | | | | | nodes (HCC) | [place] [address] | [phone] | | | | | Procedures | Phone: | Fax: | | | | | [place] | [phone] | [phone] | | | | | INJECTION, | Fax: | | | | | | FAMOTIDINE, | [phone] | | | | | | 20 MG [place] | | | | | | | RITUXIMAB | | | | | | | INJECTION, | | | | | | | 100 MG NC | | | | | | | LORAZEPAM | | | | | | | INJECTION, 2 | | | | | | | MG NC | | | | | | | MEPERIDINE | | | | | | | HYDROCHL | | | | | | | /100 MG NC | | | | | | | DIPHENHYDRAM | | | | | | | INE HCL | | | | | | | INJECTIO, 50 | | | | | | | MG NC | | | | | | | METHYLPREDNI | | | | | | | SOLONE | | | | | | | INJECTION, | | | | | | | 125 MG NC | | | | | | | DEXAMETHASON | | | | | | | E SODIUM | | | | | | | PHOS, 1 MG | | | | | | | NC NORMAL | | | | | | | SALINE | | | | | | | SOLUTION | | | | | | | INFUS, 500 | | | | | | | ML [place] | | | | | | | NORMAL | | | | | | | SALINE | | | | | | | SOLUTION | | | | | | | INFUS, 250 | | | | | | | ML NC | | | | | | | STERILE | | | | | | | WATER/SALINE | | | | | | | , 10 ML NC | | | | | | | CHEMOTHER, | | | | | | | IV PUSH,EA | | | | | | | ADD DRUG NC | | | | | | | CHEMOTHER, | | | | | | | IV INFUSION, | | | | | | | 1 HR NC | | | | | | | CHEMOTHER, | | | | | | | IV INFUSION, | | | | | | | EA HR NC | | | | | | | CHEMOTHER,NO | | | | | | | N-HORMONE | | | | | | | ANTI-NEOPL, | | | | | | | SUB-Q/IM NC | | | | | | | [...] [place] | intra-abdominal | | | | [place], | [place] [address] | lymph nodes (HCC) | | | | [place] [address] | [phone] | | | | | [phone] | | | +--------+ + + + [...] | | | | | [place], [place] | | | | | | [address] | | | | | | | [...] | | Basophils | | K/uL | [facility] | | | | | | MEDICAL [...] + | [facility] | [address] | [place] | [phone] | | [facility] | | [address] | | | - LABORATORY | | [...] | mL/min/1.73m2 | YUE | | | CAMEROONIAN | RATE,ESTIMATED | | MEDICAL | | | | mL/min/1.12d0Vvrw than | | CENTER - | | [...] [address] | [place] | [phone] | | [facility] | | [address] | | | - LABORATORY | | [...] [address] | [place] | [phone] | | [facility] | | [address] | | | - LABORATORY | | [...]
--- OUTSIDE RECORDS SUMMARY | ~2020-01-25 | XMS | Encounter Summary ---
Demographics + + + | Address | [address] | | | [place] [address] | + + + | Home Phone | | + + + | Preferred Language | Unknown | + + + | Marital Status | | + + + | Christian Affiliation | 1013 | + + + | Race | Unknown | + + + | Ethnic Group | Unknown | + + + Author + + + | Author | [facility] | | | and [place] | + + + | Organization | [facility] | | | and [place] | + + + | Address | Unknown | + + + | Phone | Unavailable | + + + Support + + + + + | Name | Relationship | Address | Phone | + + + + + | Mara Galindo | ECON | [address] | | | | | [place] | | | | | [address] | | + + + + + Care Team Providers + +------+ + | Care Database Security Expert Name | Role | Phone | + +------+ + PCP | Unavailable | + +------+ + Encounter Details +--------+ + + + + | Date | Type | Department | Care Team | Description | +--------+ + + + + | 07/17/ | Hospital | [facility] | Justin Topete MD | | | 2003 | Encounter | MED CTR SLEEP | [address] | | | | | CENTER [address] | [place] | | | | | [place] | [address] | | | | | [address] | [phone] | | | | | [phone] | | | +--------+ + + + [...] [place] | | | | | | [address] | | | | | | | | +--------+---------+ + + + documented as of this encounter Visit Diagnoses Not on filedocumented in this encounter"
--- OUTSIDE RECORDS SUMMARY | ~2020-01-25 | XMS | Clinical Summary ---
Demographics + + + | Address | [address] | | | [place] [address] | + + + | Home Phone | | + + + | Preferred Language | Unknown | + + + | Marital Status | | + + + | Tenriism Affiliation | 1013 | + + + | Race | Unknown | + + + | Ethnic Group | Unknown | + + + Author + + + | Author | [facility] (Historical as of | | | 05-10-19) | + + + | Organization | [facility] (Historical as of | | | 05-10-19) [...] [place] | | | | | [address] | | + + + + + Care Team Providers + +------+ + | Care Restaurant Area Manager Name | Role | Phone | [...] + + | 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 Specimen #[id number] ([facility], | | [facility]); Diffuse Large B-Cell lymphoma, germinal | [...] 04, 2016.10. CT Abdomen/Pelvis | | at [facility] on September 12, 2016; | | Positive [...] protocol).14. Repeat CT scan at | | [facility], [place], [place] on December 01, 2016 | | [...] [address] scan at [facility] on April 18, | | 2016 [...] | mm 16. Repeat CT scan at [facility] on November 21, | | 2017 demonstrated [...] lower | | extremity venous doppler 2016 ([facility]) No DVT left lower | | extremity. CT abdomen/Pelvis with contrast 2016 | | ([facility]). Extensive periaortic lymphadenopathy (1.8 cm and 2.1 cm | | respectively), extensive adenopathy extending out along the left | | common iliac artery and encasing the left external iliac artery | | (4.4 cm) with compromise of the left external iliac vein.2. Open | | laparotomy with LEFT ileal retroperitoneal lymph node biopsy | | ([facility], [facility]) July 05, 2016. Specimen #[id number] ([facility], | | [facility]); Diffuse Large B-Cell lymphoma, germinal | [...] 04, 2016.10. CT Abdomen/Pelvis | | at [facility] [place] on September 12, 2016; | | [...] protocol).14. Repeat CT scan at | | [facility], [place], [place] on December 01, 2016 | | [...] [address] scan at [facility] on April 18 | | 2016 [...] | mm 16. Repeat CT scan at [facility] on November 21 | | 2017 [...] [address] scan at [facility] on | | September 09, 2018 [...] | | negative for any signs of mtsgcta-ounem-lkapydypzcx.Assessment; | | composite mixed diffuse large B-cell/follicular [...] + + + + Plan of Treatment + + + + [...] +------+-------+ + | MEDICARE | MEDICA | [id number] | | | [address] | | | RE | | | | [place], [place] [address] | | | IP-OP | | | | | + +--------+ +------+-------+ + | PREMERA | PREMER | [id number] | | | [address] [address] | | | A BLUE | | | | [place], [place] | | | [place] | | | | [address] | | | FED | | | [...] | Self | [birth year] | Home: | [address] | | | al/Fam | | 1950 | [phone] | [place] | | | [place] | | | [address] | [address] | + +--------+ +--------+ + +
--- OUTSIDE RECORDS SUMMARY | ~2020-01-25 | XMS | Encounter Summary ---
Demographics + + + | Address | [address] | | | [place] [address] | + + + | Home Phone | | + + + | Preferred Language | Unknown | + + + | Marital Status | | + + + | Mu-Ism Affiliation | 1013 | + + + | Race | Unknown | + + + | Ethnic Group | Unknown | + + + Author + + + | Author | [facility] | | | and [place] | + + + | Organization | [facility] | | | [...] [place] | | | | | [address] | | + + + + + Care Team Providers + +------+ + | Care Land Department Head Name | Role | Phone | + [...] large b-cell | Gerber Benson, | [address] | | | | | lymphoma, | MD [address] | [place], | | | | | intra-abdomi | [address] | [place] [address] | | | | | nal lymph | [place], | Phone: | | | | | nodes (HCC) | [place] [address] | [phone] | | | | | Procedures | Phone: | Fax: | | | | | [place] | [phone] | [phone] | | | | | INJECTION, | Fax: | | | | | | FAMOTIDINE, | [phone] | | | | | | 20 MG [place] | | | | | | | RITUXIMAB | | | | | | | INJECTION, | | | | | | | 100 MG NH | | | | | | | LORAZEPAM | | | | | | | INJECTION, 2 | | | | | | | MG NH | | | | | | | MEPERIDINE | | | | | | | HYDROCHL | | | | | | | /100 MG NH | | | | | | | DIPHENHYDRAM | | | | | | | INE HCL | | | | | | | INJECTIO, 50 | | | | | | | MG NH | | | | | | | METHYLPREDNI | | | | | | | SOLONE | | | | | | | INJECTION, | | | | | | | 125 MG NH | | | | | | | DEXAMETHASON | | | | | | | E SODIUM | | | | | | | PHOS, 1 MG | | | | | | | [place] NORMAL | | | | | | | SALINE | | | | | | | SOLUTION | | | | | | | INFUS, 500 | | | | | | | ML [place] | | | | | | | NORMAL | | | | | | | SALINE | | | | | | | SOLUTION | | | | | | | INFUS, 250 | | | | | | | ML NH | | | | | | | STERILE | | | | | | | WATER/SALINE | | | | | | | , 10 ML NH | | | | | | | CHEMOTHER, | | | | | | | IV PUSH,EA | | | | | | | ADD DRUG NH | | | | | | | CHEMOTHER, | | | | | | | IV INFUSION, | | | | | | | 1 HR NH | | | | | | | CHEMOTHER, | | | | | | | IV INFUSION, | | | | | | | EA HR NH | | | | | | | CHEMOTHER,NO | | | | | | | N-HORMONE | | | | | | | ANTI-NEOPL, | | | | | | | SUB-Q/IM NH | | | | | | | [...] [place] | intra-abdominal | | | | [place], | [place] [address] | lymph nodes (HCC) | | | | [place] [address] | [phone] | | | | | [phone] | | | +--------+ + + + [...] encounter Progress Notes Hanh Sampson RN - 03/25/2018 1:10 PM PDTPatient discharged [...] | | | | | | [place] | | | | | | [id number] | | | | | | | [...] | | | | g/dL | [facility] | | | | [...] + | [facility] | [address] | [place] | [phone] | | [facility] | | [address] | | | - LABORATORY | | [...] | mL/min/1.73m2 | YUE | | | [place] | RATE,ESTIMATED | | MEDICAL | | | | mL/min/1.52s7Ufgp than | | CENTER - | | [...] | 9.8 | 8.3 - 10.5 | [facility] | | | | | mg/dL | Y[facility] | | | | | | MEDICAL | | | | | | CENTER - | | | | | | LABORATORY | | + + + + + + | Albumin | 3.7 | 3.2 - 5.0 g/dL | [facility] | | | | | | Y[facility] [...] + | [facility] | [address] | [place] | [phone] | | [facility] | | [address] | | | - LABORATORY | | [...] [facility] | | | | | | [facility] [...] ST. | [address] | [place], [place] | [phone] | | [facility] | | [address] | | | - LABORATORY | | [...] mg, Oral, ONCE, Mon | | 18 9:20 | | | [...] | | | | | Care, Starting Sun03/25/18 at 0906 | | | | | [...]
--- OUTSIDE RECORDS SUMMARY | ~2020-01-25 | XMS | Encounter Summary ---
Demographics + + + | Address | [address] | | | [place] [address] | + + + | Home Phone [...] [place] | | | | | [address] | | + + + + + Care Team Providers + +------+ + | Care Boiler Shop Supervisor Name | Role | Phone | + +------+ + | Kelsey Quintanilla MD | PCP | | + +------+ + Encounter Details +--------+ + + + + | Date | Type | Department | Care Team | Description | +--------+ + + + + | 04/18/ | Orders Only | [facility] | Provider, | | | 2019 | | SYSTEM GENERIC OP | MD [address] | | | | | CONVERSION [address] | [place]. | | | | | [address] [place], [place] | [place] [address] | | | | | [address] | | | | | | [phone] | | | +--------+ + + + [...] | | | | | [place], [place] | | | | | | [address] | | | | | | | | +--------+---------+ + + + documented as of this encounter Visit Diagnoses Not on filedocumented in this encounter"
--- OUTSIDE RECORDS SUMMARY | ~2020-01-25 | XMS | Encounter Summary ---
Demographics + + + | Address | [address] | | | [place] [address] | + + + | Home Phone | | + + + | Preferred Language | Unknown | + + + | Marital Status | | + + + | Mandaeism Affiliation | 1013 | + + + [...] [place] | | | | | [address] | | + + + + + Care Team Providers + +------+ + | Care Center Human Resources Manager Name | Role | Phone | [...] | | [facility]IN[facility] [address] | [address] [facility] | | | | | [address] | [place] [address] | | | | | [place] [address] | [phone] | | | | | [phone] | | | +--------+ + + + [...] [place] | | | | | | [address] | | | | | | | | +--------+---------+ + + + documented as of this encounter Visit Diagnoses Not on filedocumented in this encounter"
--- OUTSIDE RECORDS SUMMARY | ~2020-01-25 | XMS | Encounter Summary ---
Demographics + + + | Address | [address] | | | [place] [address] | + + + | Home Phone [...] [place] | | | | | [address] | | + + + + + Care Team Providers + +------+ + | Care Moving Picture Producer Name | Role | Phone | [...] | Diffuse | Nikhil, | [address] | | | | | large B-cell | Joaquim Benson, | [place], | | | | | lymphoma of | MD [address] | [place] | | | | | | [address] | [address] | | | | | intra-abdomi | [place], | Phone: | | | | | nal lymph | [place] [address] | [phone] | | | | | nodes (HCC) | Phone: | Fax: | | | | | Procedures | [phone] | [phone] | | | | | ECHO | Fax: | | | | | | Complete | [phone] | | +--------+--------+ + + + + Reason for Visit + + + | Reason | Comments | + + + | Follow-up | | + + + Encounter Details +--------+ + + + + | Date | Type | Department | Care Team | Description | +--------+ + + + + | 10/17/ | Hospital | [facility] | Nikhil, | Diffuse large B-cell | | 2017 | Encounter | [facility] | Joaquim Benson MD [address] | lymphoma of | | | | [facility]Y CLINIC [address] | [address] [place] | intra-abdominal | | | | [address] [place] | [place] [address] | lymph nodes (HCC) | | | | [place] [address] | [phone] | (Primary Dx) | | | | [phone] | | | +--------+ + + + [...] nt from the original. Hematology/Oncology Progress Note [facility] [place] Pt. Name/Age/: Joaquim Sanchez 66 y.o. 1950 Med. Record Number: [id number] Date of admission: 10/17/2016 Identifying Statement: Joaquim Sanchez is a 66 y.o. male from [address] [address] with Diffuse Large B-Cell Lymphoma. The patient [...] lower extremity. CT abdomen/Pelvis with contrast 2016 ([facility]). Ex tensive periaortic lymphadenopathy (1.8 cm and 2.1 cm respectively), extensive adenopathy ex tending out along the left common iliac artery and encasing the left external iliac artery ( 4.4 cm) with compromise of the left external iliac vein. 2. Open laparotomy with LEFT ileal retroperitoneal lymph node biopsy (Praveen, [facility]) June 242015. Specimen #[id number] ([facility]); Diffuse Large B-Cell lymph [...] September 04, 2016. 10. CT Abdomen/Pelvis at [facility] [place] on September 12, 2016; Positive Response [...] Joaquim robles MD 500 Units at 10/17/16 1518 Allergies: Allergy: Allergies Allergen Reactions Codeine "wires [...] Luque., Andie Menezes., Michael Trejo., Vy Rodriguez., Taty DiamondT., Fatoumata, P ChristianP.: Toxicity And Response Criteria [...] Stop infusion, activate code blue and notify Yuriy MUNOZ affirmed that he has an active prescription for prednisone and will take 100 mg in t he morning with breakfast for 5 consecutive days starting tomorrow. JOAQUIM TEJEDA MD Portions of this chart may have been created with [employer] voice recognition software. Occasi onal wrong-word or [...] | | | | | DARRYL Piper [place], [place] | | | | | | [...] Room Number JR. Patient | | | [id number] Date of Study 10/26/2016 Number | | | Visit Number [id number] | | | Referring Physician NIKHIL MARCH Number | | | C Date of | | | 1950 Anthropology Professor VALENTIN ADRIAN, | | | | | | [facility] Age 66 year(s) | | | Interpreting YAMEL DYKES, | | | Underground Electrician Gender | | | Male Nurse Procedure [...] Index: 31 mL/m^2 | | | EF Lgappmufs56% Left Ventricle Diastolic Dimension: 5.5 cm | [...] | LA Vol/BSA Index: 31 mL/m^2 EF Bcyotlhca97% | | | | | | Left [...] Rad Results In - 10/27/2016 7:09 AM [facility] Transthoracic Echocardiography Report | | (TTE) Demographics Patient Name DANIEL Leon Room Number JR. | | Patient [id number] Date of Study 10/26/2016 Number Visit Number | | [id number] Referring Physician NIKHIL MARCH | | Number C Date of 1950 | | Anthropology Professor VALENTIN ADRIAN, | | [facility] Age 66 year(s) Interpreting YAMEL DYKES, | | Underground Electrician Gender Male | | NurseProcedureType of Study [...] ml LA Vol/BSA Index: 31 mL/m^2 EF Jjxnzxfje85% Left | | Ventricle Diastolic Dimension: 5.5 [...] | LA Vol/BSA Index: 31 mL/m^2 EF Wudbrxvya33% | | | | Left Ventricle | [...]
--- OUTSIDE RECORDS SUMMARY | ~2020-01-25 | XMS | Encounter Summary ---
Demographics + + + | Address | [address] | | | [place] [address] | + + + | Home Phone [...] [place] | | | | | [address] | | + + + + + Care Team Providers + +------+ + | Care Ham Boner Name | Role | Phone | + +------+ + | Earle Chacko MD | PCP | | + +------+ + Encounter Details +--------+ + + + + | Date | Type | Department | Care Team | Description | +--------+ + + + + | 05/20/ | Hospital | [facility] | Mohamud, | Diffuse large B-cell | | 2018 | Encounter | [facility] | Joaquim Benson MD [address] | lymphoma of | | | | ON[facility]OGY CLINIC [address] | [address] [place] | intra-abdominal | | | | [address] [place] | [place] [address] | lymph nodes (HCC) | | | | [place] [address] | [phone] | | | | | [phone] | | | +--------+ + + + [...] nt from the original. Hematology/Oncology Progress Note [place], [place] Pt. Name/Age/: Joaquim Sanchez Jr. 67 y.o. 1950 [facility]. Record Number: [id number] Date of admission: 05/20/2018 The patient's primary care provider is Kelsey Quintanilla MD. Identifying Statement: Joaquim Sanchez Jr. is a 67 y.o. male from [address] [address] with Mixed Diffuse Large B-Cell/Follicular Lymphoma in [...] with LEFT ileal retroperitoneal lymph node biopsy (Prvaeen, ESTEE) June 242015. Specimen #[id number] ([facility]); Diffuse Large B-Cell lymph raciel, germinal [...] 04, 2016. 10. CT Abdomen/Pelvis at [facility] on September 12, 2016; Positive Response [...] (PRIMA protocol). 14. Repeat CT scan at [facility], [place], [place] on December 01, [address] [...] [address] scan at [facility] on April 18, 2017 demonstrated [...] exam is negative for any signs of sfnctag-crwhz-quxuszmlrsf. Assessment; composite mixed diffuse large B-cell/follicular B-cell [...] 2006 , Vol. 47, No. 6, pp 8350-6731. In the first article, an observational study [...] observational study, by Marques et al from [facility] th at reports neutropenia developed in [...] this chart may have been created with [employer] voice recognition software. Occasi onal wrong-word or [...] [place] | | | | | | [address] | | | | | | | | +--------+---------+ + + + documented as of this encounter Visit Diagnoses + + | Diagnosis | + + | Diffuse large B-cell lymphoma of intra-abdominal lymph nodes (HCC) Other malignant | | lymphomas of intra-abdominal lymph nodes | + + documented in this encounter
--- OUTSIDE RECORDS SUMMARY | ~2020-01-25 | XMS | Encounter Summary ---
Demographics + + + | Address | [address] | | | [place] [address] | + + + | Home Phone | | + + + | Preferred Language | Unknown | + + + | Marital Status | | + + + | Orthodoxy Affiliation | 1013 | + + + [...] [place] | | | | | [address] | | + + + + + Care Team Providers + +------+ + | Care Civil Engineering Design Draftsperson Name | Role | Phone | + [...] | intra-abdominal | | | | [address] [place] | [place] [address] | lymph nodes (HCC) | | | | [place] [address] | [phone] | (Primary Dx) | | | | [phone] | | | +--------+ + + + [...] | | | | | DARRYL Piper [place], [place] | | | | | | [address] | | | | | | | [...]
--- OUTSIDE RECORDS SUMMARY | ~2020-01-25 | XMS | Encounter Summary ---
Demographics + + + | Address | [address] | | | [place] [address] | + + + | Home Phone [...] [place] | | | | | [address] | | + + + + + Care Team Providers + +------+ + | Care Autoglazier Name | Role | Phone | + [...] | | | nal lymph | [place] [address] | [address] Phone: | | | | | nodes (HCC) | Phone: | [phone] | | | | | Procedures | [phone] | Fax: | | | | | [address] | Fax: | [phone] | | | | | | [phone] | | +--------+--------+ + + + + Encounter Details +--------+ + + + + | Date | Type | Department | Care Team | Description | +--------+ + + + + | 12/03/ | Hospital | [facility] | Mohamud, | Diffuse large B-cell | | 2018 | Encounter | [facility] | Joaquim Benson MD [address] | lymphoma of | | | | ONCOLOGY CLINIC [address] | [address] [place] | intra-abdominal | | | | [address] [place] | [place] [address] | lymph nodes (HCC) | | | | [place] [address] | [phone] | | | | | [phone] | | | +--------+ + + + [...] nt from the original. Hematology/Oncology Progress Note [facility] [place] Pt. Name/Age/: Joaquim Sanchez Jr. 67 y.o. 1950 [facility]. Record Number: [id number] Date of admission: 12/03/2017 The patient's primary care provider is Kelsey Quintanilla MD. Identifying Statement: Joaquim Sanchez Jr. is a 67 y.o. male from [address] [address] with Mixed Diffuse Large B-Cell/Follicular Lymphoma in [...] node biopsy (ESTEE Morton) June 242015. Specimen #[id number] [facility] Diffuse Large B-Cell [...] (PRIMA protocol). 14. Repeat CT scan at [facility], [place], [place] on December 01, [address] [...] [address]. [address] scan at [facility] on April 18, 2017 demonstrated decreased [...] [address] scan at [facility] on November 21, 2017 demonstrated decreased [...] Physical exam is notable for clear lung omore bilaterally. Clinical Data is notable for normal LDH. Grade 1 leukopenia without neutropenia, and grade 1 thrombocytopenia are noted, but are not dose limiting. November 21, 2017 CT scan at [facility] was reviewed and indicates ongoing diminution of residual left iliac lymphad enopathy. Assessment: Composite diffuse large B-cell/follicular lymphoma, stage IIIA or higher-[facility] ed. Plan; Proceed today with Cycle [...] JOAQUIM SANCHEZ JR. ( ) as of 12/03/2017 [...] 2006 , Vol. 47, No. 6, pp 1804-1840. In the first article, an observational study [...] OrderHistory Comprehensive Metabolic Panel STAT, ONE TIME, Sun12/03/17 at 0815, For 1 occurrence OrderHistory CBC with Differential STAT, ONE TIME, Sun12/03/17 at 0815, For 1 occurrence OrderHistory PRN [...] Line Care, Starting Sun12/03/17 at 0918 OrderHis tory Joaquim Mallory MD Portions of this chart may have been created with [employer] voice recognition software. Occasi onal wrong-word or [...] 05/19/ | Office | Cardiology | Karen Bansal | | | 2019 | Visit | | MD Patricia JOHNSON | | | | | | [place] | | | | | | [address] | | | | | | | | +--------+---------+ + + + documented as of this encounter Visit Diagnoses + + | Diagnosis | + + | Diffuse large B-cell lymphoma of intra-abdominal lymph nodes (HCC) Other malignant | | lymphomas of intra-abdominal lymph nodes | + + documented in this encounter
--- OUTSIDE RECORDS SUMMARY | ~2020-01-25 | XMS | Encounter Summary ---
Demographics + + + | Address | [address] | | | [place] [address] | + + + | Home Phone | | + + + | Preferred Language | Unknown | + + + | Marital Status | | + + + | Anabaptist Affiliation | 1013 | + + + [...] [place] | | | | | [address] | | + + + + + Care Team Providers + +------+ + | Care Store Director Name | Role | Phone | + +------+ + | Earle Chacko MD | PCP | | + +------+ + Encounter Details +--------+ + + + + | Date | Type | Department | Care Team | Description | +--------+ + + + + | 08/13/ | Hospital | [facility] | Miguel Zuniga | Diffuse large B-cell | | 2017 | Encounter | MED CTR MED[facility] | MD Gerber [address] | lymphoma of | | | | ONCOLOGY CLINIC [address] | [address] [place] | intra-abdominal | | | | [address] [place] | [place] [address] | lymph nodes (HCC) | | | | [place] [address] | [phone] | (Primary Dx) | | | | [phone] | | | +--------+ + + + [...] Two-month follow-up 1 2:51 PM Mckayla Wells [facility] - 08/13/2017 9:41 AM PSTREVIEW OF [...] | | | | | [place]ARR[place] Piper [place] | | | | | | [id number] | | | | | | | | +--------+---------+ + + + documented as of this encounter Visit Diagnoses + + | Diagnosis | + + | 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
--- OUTSIDE RECORDS SUMMARY | ~2020-01-25 | XMS | Encounter Summary ---
Demographics + + + | Address | [address] | | | [place] [address] | + + + | Home Phone [...] [place] | | | | | [address] | | + + + + + Care Team Providers + +------+ + | Care Hotel Custodian Name | Role | Phone | + +------+ + | Earle Chacko MD | PCP | | + +------+ + Encounter Details +--------+ + + + + | Date | Type | Department | Care Team | Description | +--------+ + + + + | 09/26/ | Hospital | [facility] | Mohamud, | Diffuse large B-cell | | 2017 | Encounter | MED [facility] MED[facility] | Joaquim Benson MD [address] | lymphoma of | | | | ONCOLOGY CLINIC [address] | [address] [place] | intra-abdominal | | | | [address] [place] | [place] [address] | lymph nodes (HCC) | | | | [place] [address] | [phone] | (Primary Dx) | | | | [phone] | | | +--------+ + + + [...] nt from the original. Hematology/Oncology Progress Note [facility] [place] Pt. Name/Age/: Joaquim Galindo 66 y.o. 1950 Med. Record Number: [id number] Date of admission: 09/26/2016 Identifying Statement: Joaquim Galindo is a 66 y.o. male from [address] [address] with Diffuse Large B-Cell Lymphoma. The patient [...] with LEFT ileal retroperitoneal lymph node biopsy (ETSEE Morton) June 242015. Specimen #[id number] ([facility]); Diffuse Large B-Cell [...] 2016. 10. CT Abdomen/Pelvis at [facility] on September 12, 2016; Positive Response [...] fact that Rios underwent CT scan at [facility] in [place], [place] on September 12, 2016 that demonstrated [...] injection 500 Units 5 mL Intercatheter PRN Joqauim robles MD 500 Units at 09/26/16 1511 [...] adenoidectomy Inguinal hernia repair incarcerated Stent 2013 [facility] Social History Social History Marital Status: [...] REdita., Andie Menezes., Donal Trejo, Michael TDusty., Dara E.T., Fatoumata, P .P.: Toxicity And Response [...] for DANIEL JOAQUIM ( ) as of 09/26/2016 16:07 Ref. [...] 14:22 Note Time: 09/26/2016 14:14 Status: Signed Traffic Sign Erection Supervisor: Olivia Portillo OT (Occupational Therapist) Expand All Collapse All [facility] OT OP [address] [place] [address] Occupational Therapy Discharge Note Date: 09/26/2016 Patient Information Patient Name: Joaquim Galindo Date of : 1Age: 66 y.o. History Encounter Diagnoses Code Name [...] is Experienced: 26-50% DISCHARGE NOTE: SUBJECTIVE: Joaquim Galindo has completed 4 visits for treatment [...] Impact Scale disability score:: 38.24 Assessment Joaquim Galindo has completed therapy for treatment of [...] of an appropriate compression garm ents for customer service professional management of edema. Goal 3 Status: Goal met Plan Date of Onset: 2016Start of Care Date: 08/24/2016 Requested # of Visits: 8 visits 1x/week for 8 weeks Certification From: 08/24/2016Certification To: 10/24/2016 Treatment Plan/Interventions 72984 - OT [id number] - Therapeutic [id number] - Therapeutic [id number] - Manu al Therapy Patient and/or family [...] concerns at this time. PLAN: Discharge to [facility]. Electronically signed by: Olivia Portillo OT, 09/26/2016 14:19 Patient Name: Joaquim Galinod/: 1950/ Palliative Care: Patient's Medications New Prescriptions [...] activate code blue and notify . OrderHisto cherelle MUNOZ affirmed that he has an active prescription for prednisone and will take 100 mg in t he morning with breakfast for 5 consecutive days starting tomorrow. JOAQUIM TEJEDA MD Portions of this chart may have been created with [employer] voice recognition software. Occasi onal wrong-word or [...] [place] | | | | | | [id number] | | | | | | | | +--------+---------+ + + + documented as of this encounter Visit Diagnoses + + | Diagnosis | + + | 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
--- OUTSIDE RECORDS SUMMARY | ~2020-01-25 | XMS | Encounter Summary ---
Demographics + + + | Address | [address] | | | [place] [address] | + + + | Home Phone [...] [place] | | | | | [address] | | + + + + + Care Team Providers + +------+ + | Care Regulatory Scientist Name | Role | Phone | + [...] large b-cell | Gerber Benson, | [address] | | | | | lymphoma, | MD [address] | [place], | | | | | intra-abdomi | [address] | [place] [address] | | | | | nal lymph | [place], | Phone: | | | | | nodes (HCC) | [place] [address] | [phone] | | | | | Procedures | Phone: | Fax: | | | | | [place] | [phone] | [phone] | | | | | RITUXIMAB | Fax: | | | | | | INJECTION, | [phone] | | | | | | 100 MG IA | | | | | | | MEPERIDINE | | | | | | | HYDROCHL | | | | | | | /100 MG IA | | | | | | | IV INFUSION, | | | | | | | HYDRATION, | | | | | | | 31-60 MIN | | | | | | | IA IV | | | | | | | INFUSION, | | | | | | | HYDRATION, | | | | | | | EA ADD HOUR | | | | | | | IA | | | | | | | ONDANSETRON | | | | | | | HCL | | | | | | | INJECTION, 1 | | | | | | | MG IA | | | | | | | DEXAMETHASON | | | | | | | E SODIUM | | | | | | | PHOS, 1 MG | | | | | | | IA | | | | | | | FOSAPREPITAN | | | | | | | T INJECTION, | | | | | | | 1 MG IA | | | | | | | PREDNISONE | | | | | | | IR OR DR | | | | | | | ORAL 1MG IA | | | | | | | | | | | | | | CYCLOPHOSPHA | | | | | | | MIDE 100 MG | | | | | | | INJ IA | | | | | | | DOXORUBICIN | | | | | | | HCL | | | | | | | INJECTION, | | | | | | | 10 MG IA | | | | | | | VINCRISTINE | | | | | | | SULFATE 1 MG | | | | | | | INJ IA | | | | | | | DIPHENHYDRAM | | | | | | | INE HCL | | | | | | | INJECTIO, 50 | | | | | | | MG IA | | | | | | | METHYLPREDNI | | | | | | | SOLONE | | | | | | | INJECTION, | | | | | | | 125 MG IA | | | | | | | DEXAMETHASON | | | | | | | E SODIUM | | | | | | | PHOS, 1 MG | | | | | | | IA | | | | | | | INJECTION, | | | | | | | PEGFILGRASTI | | | | | | | M 6MG IA | | | | | | | NORMAL | | | | | | | SALINE | | | | | | | SOLUTION | | | | | | | INFUS, 500 | | | | | | | ML IA | | | | | | | NORMAL | | | | | | | SALINE | | | | | | | SOLUTION | | | | | | | INFUS, 250 | | | | | | | ML IA | | | | | | | STERILE | | | | | | | WATER/SALINE | | | | | | | , 10 ML IA | | | | | | | CHEMOTHER, | | | | | | | IV PUSH,EA | | | | | | | ADD DRUG IA | | | | | | | CHEMOTHER, | | | | | | | IV INFUSION, | | | | | | | 1 HR IA | | | | | | | CHEMOTHER, | | | | | | | IV INFUSION, | | | | | | | EA HR IA | | | | | | | CHEMOTHER,NO | | | | | | | N-HORMONE | | | | | | | ANTI-NEOPL, | | | | | | | SUB-Q/IM IA | | | | | | | [...] | 09/05/ | [facility] | [facility] | Mohamud, | Diffuse large B-cell | | 2016 | Encounter | MED CTR CHEMO | Gerber Benson MD [address] | lymphoma of | | | | INFUSION [address] | [address] [place] | intra-abdominal | | | | [place], | [place] [address] | lymph nodes (HCC) | | | | [place] [address] | [phone] | | | | | [phone] | | | +--------+ + + + [...] encounter Progress Notes Livier Olsen RN - 09/05/2016 4:09 PM PSTPatient discharged [...] [place] | | | | | | [address] | | | | | | | [...] + | [facility] | [address] | [place] | [phone] | | [facility] | | [address] | | | - LABORATORY | | [...] mL/min/1.73m2 | [facility] | | | INDIAN | RATE,ESTIMATED | | MEDICAL | | | | mL/min/1.81s1Jpsi than | | CENTER - | | [...] | 9.5 | 8.3 - 10.5 | PROVIDEDCBren | | | | | mg/dL | [...] + | [facility] | [address] | [place] | [phone] | | [facility] | | [address] | | | - LABORATORY | | | | + + + + + Lactate Dehydrogenase (09/05/2016 8:24 AM PST) + +-------+ + + + | Component | Value | Ref Range | Performed | Pathologist | | | | | At | Signature | + +-------+ + + + | LDH TOTAL | 152 | 91 - 180 U/L | TUSHARNCE [...] [address] | [place] | [phone] | | [facility] | | [address] | | | - LABORATORY | | [...] ST. | [address] | [place], [place] | [phone] | | [facility] | | [address] | | | - LABORATORY | | [...] [address] | [place] | [phone] | | [facility] | | [address] | | | - LABORATORY | | [...] (ONCOVIN) 2 mg in | Given | 09/05/20 | 2 mg | 150 | | [...]
--- OUTSIDE RECORDS SUMMARY | ~2020-01-25 | XMS | Encounter Summary ---
Demographics + + + | Address | [address] | | | [place] [address] | + + + | Home Phone | | + + + | Preferred Language | Unknown | + + + | Marital Status | | + + + | Baptism Affiliation | 1013 | + + + [...] [place] | | | | | [address] | | + + + + + Care Team Providers + +------+ + | Care End User Support Specialist Name | Role | Phone | [...] large b-cell | Gerber Benson, | [address] | | | | | lymphoma, | MD [address] | [place], | | | | | intra-abdomi | [address] | [place] [address] | | | | | nal lymph | [place], | Phone: | | | | | nodes (HCC) | [place] [address] | [phone] | | | | | Procedures | Phone: | Fax: | | | | | [place] | [phone] | [phone] | | | | | RITUXIMAB | Fax: | | | | | | INJECTION, | [phone] | | | | | | [address] [...] + + + + | 11/07/ | [facility] | [facility] | Mohamud, | Diffuse large B-cell | | 2017 | Encounter | MED CTR CHEMO | Gerber Benson MD [address] | lymphoma of | | | | INFUSION [address] | [address] [place] | intra-abdominal | | | | [place], | [place] [address] | lymph nodes (HCC) | | | | [place] [address] | [phone] | (Primary Dx); | | | | [phone] | | Lymphedema of left | | [...] [place] | | | | | | [address] | | | | | | | [...] + | [facility] | [address] | [place] | [phone] | | [facility] | | [address] | | | - LABORATORY | | [...] mL/min/1.73m2 | [facility] | | | [place] | RATE,ESTIMATED | | MEDICAL | | | | mL/min/1.83f5Wecq than | | CENTER - | | [...] + | [facility] | [address] | [place] | [phone] | | [facility] | | [address] | | | - LABORATORY | | [...] [address] | [place] | [phone] | | [facility] | | [address] | | | - LABORATORY | | [...]
--- OUTSIDE RECORDS SUMMARY | ~2020-01-25 | XMS | Encounter Summary ---
Demographics + + + | Address | [address] | | | [place] [address] | + + + | Home Phone [...] + + | Author | [facility] | | | and [place] | + + + | Organization | [facility] | | [...] [place] | | | | | [address] | | + + + + + Care Team Providers + +------+ + | Care Physicist Astrophysics Name | Role | Phone | + [...] large b-cell | Gerber Benson, | [address] | | | | | lymphoma, | MD [address] | [place], | | | | | intra-abdomi | [address] | [place] [address] | | | | | nal lymph | [place], | Phone: | | | | | nodes (HCC) | [place] [address] | [phone] | | | | | Procedures | Phone: | Fax: | | | | | [place] | [phone] | [phone] | | | | | RITUXIMAB | Fax: | | | | | | INJECTION, | [phone] | | | | | | 100 MG SD | | | | | | | MEPERIDINE | | | | | | | HYDROCHL | | | | | | | /100 MG SD | | | | | | | IV INFUSION, | | | | | | | HYDRATION, | | | | | | | 31-60 MIN | | | | | | | SD IV | | | | | | | INFUSION, | | | | | | | HYDRATION, | | | | | | | EA ADD HOUR | | | | | | | SD | | | | | | | ONDANSETRON | | | | | | | HCL | | | | | | | INJECTION, 1 | | | | | | | MG SD | | | | | | | DEXAMETHASON | | | | | | | E SODIUM | | | | | | | PHOS, 1 MG | | | | | | | SD | | | | | | | FOSAPREPITAN | | | | | | | T INJECTION, | | | | | | | 1 MG SD | | | | | | | PREDNISONE | | | | | | | IR OR DR | | | | | | | ORAL 1MG SD | | | | | | | | | | | | | | CYCLOPHOSPHA | | | | | | | MIDE 100 MG | | | | | | | INJ SD | | | | | | | DOXORUBICIN | | | | | | | HCL | | | | | | | INJECTION, | | | | | | | 10 MG SD | | | | | | | VINCRISTINE | | | | | | | SULFATE 1 MG | | | | | | | INJ SD | | | | | | | DIPHENHYDRAM | | | | | | | INE HCL | | | | | | | INJECTIO, 50 | | | | | | | MG SD | | | | | | | METHYLPREDNI | | | | | | | SOLONE | | | | | | | INJECTION, | | | | | | | 125 MG SD | | | | | | | DEXAMETHASON | | | | | | | E SODIUM | | | | | | | PHOS, 1 MG | | | | | | | SD | | | | | | | INJECTION, | | | | | | | PEGFILGRASTI | | | | | | | M 6MG SD | | | | | | | NORMAL | | | | | | | SALINE | | | | | | | SOLUTION | | | | | | | INFUS, 500 | | | | | | | ML SD | | | | | | | NORMAL | | | | | | | SALINE | | | | | | | SOLUTION | | | | | | | INFUS, 250 | | | | | | | ML SD | | | | | | | STERILE | | | | | | | WATER/SALINE | | | | | | | , 10 ML SD | | | | | | | CHEMOTHER, | | | | | | | IV PUSH,EA | | | | | | | ADD DRUG SD | | | | | | | CHEMOTHER, | | | | | | | IV INFUSION, | | | | | | | 1 HR SD | | | | | | | CHEMOTHER, | | | | | | | IV INFUSION, | | | | | | | EA HR SD | | | | | | | CHEMOTHER,NO | | | | | | | N-HORMONE | | | | | | | ANTI-NEOPL, | | | | | | | SUB-Q/IM SD | | | | | | | [...] + + + + | 09/26/ | [facility] | [facility] | Mohamud, | Diffuse large B-cell | | 2017 | Encounter | MED CTR CHEMO | Gerber Benson MD [address] | lymphoma of | | | | INFUSION [address] | [address] [place] | intra-abdominal | | | | [place], | [place] [address] | lymph nodes (HCC) | | | | [place] [address] | [phone] | | | | | [phone] | | | +--------+ + + + [...] | | | | | [place], [place] | | | | | | [address] | | | | | | | [...] [address] | [place] | [phone] | | [facility] | | [address] | | | - LABORATORY | | [...] | | | | | | [facility] | | | | | | [...] 16 | 7 - 18 mg/dL | [facility] | | | | | | [facility] | | | | | | MEDICAL | | | | | | CENTER - | | | | | | LABORATORY | | + + + + + + | Creatinine | 0.89 | 0.60 - 1.30 | [facility] | | | | | mg/dL | [facility] | | | | | | MEDICAL | | | | | | CENTER - | | | | | | LABORATORY | | + + + + + + | eGFR if not | >60Comment: GLOMERULAR | >=60 | [facility] | | | | FILTRATION | mL/min/1.73m2 | [facility] | | | [place] | RATE,ESTIMATED | | MEDICAL | | | | mL/min/1.40w5Fjwb than | | CENTER - | | [...] [address] | [place] | [phone] | | [facility] | | [address] | | | - LABORATORY | | | | + + + + + Lactate Dehydrogenase (09/26/2016 8:05 AM PST) + +-------+ + + + | Component | Value | Ref Range | Performed | Pathologist | | | | | At | Signature | + +-------+ + + + | LDH TOTAL | 148 | 91 - 180 U/L | [facility] [...] [address] | [place] | [phone] | | [facility] | | [address] | | | - LABORATORY | | [...]
--- OUTSIDE RECORDS SUMMARY | ~2020-01-25 | XMS | Encounter Summary ---
Demographics + + + | Address | [address] | | | [place] [address] | + + + | Home Phone [...] [place] | | | | | [address] | | + + + + + [...] [place] | | | | | [address] [place] | [place] [address] | | | | | [place] [address] | [phone] | | | | | [phone] | | | +--------+ + + + [...] [place] | | | | | | [address] | | | | | | | | +--------+---------+ + + + documented as of this encounter Visit Diagnoses + + | Diagnosis | + + | Diffuse large B-cell lymphoma of intra-abdominal lymph nodes (HCC) Other malignant | | lymphomas of intra-abdominal lymph nodes | + + documented in this encounter"
--- OUTSIDE RECORDS SUMMARY | ~2020-01-25 | XMS | Encounter Summary ---
Demographics + + + | Address | [address] | | | [place] [address] | + + + | Home Phone [...] [place] | | | | | [address] | | + + + + + Care Team Providers + +------+ + | Care Earth Burner Name | Role | Phone | + [...] | | | INTERFACES [address] | [place] [address] | | | | | [address] [place], [place] | [phone] | | | | | [address] | | | | | | [phone] | | | +--------+ + + + [...] | | | | [place] | | | | | | [address] | | | | | | | [...] | | patient was brought to the concrete mixing plant laborer in the fasting state. He was | | | prepped and draped in the usual sterile fashion for radial artery | | | approach. The radial artery was easily accessed with modified | | | Seldinger approach and a 5-Bahraini glide sheath was placed. A | | | 6-Bahraini JL-4 catheter was advanced under fluoroscopic guidance [...] patient was brought to | | the concrete mixing plant laborer in the fasting state. He was prepped and draped in the usual sterile | | fashion for radial artery approach. The radial artery was easily accessed with modified | | Seldinger approach and a 5-Bahraini glide sheath was placed. A 6-Bahraini JL-4 catheter was | | advanced under [...]
--- OUTSIDE RECORDS SUMMARY | ~2020-01-25 | XMS | Encounter Summary ---
Demographics + + + | Address | [address] | | | [place] [address] | + + + | Home Phone [...] [place] | | | | | [address] | | + + + + + Care Team Providers + +------+ + | Care Bar Machine Operator Name | Role | Phone [...] large b-cell | Gerber Benson, | [address] [place] | | | | | lymphoma, | MD [address] | [place], | | | | | intra-abdomi | [address] | [place] [address] | | | | | nal lymph | [place], | Phone: | | | | | nodes (HCC) | [place] [address] | [phone] | | | | | Procedures | Phone: | Fax: | | | | | [place] | [phone] | [phone] | | | | | RITUXIMAB | Fax: | | | | | | INJECTION, | [phone] | | | | | | 100 MG LA | | | | | | | MEPERIDINE | | | | | | | HYDROCHL | | | | | | | /100 MG LA | | | | | | | IV INFUSION, | | | | | | | HYDRATION, | | | | | | | 31-60 MIN | | | | | | | LA IV | | | | | | | INFUSION, | | | | | | | HYDRATION, | | | | | | | EA ADD HOUR | | | | | | | LA | | | | | | | ONDANSETRON | | | | | | | HCL | | | | | | | INJECTION, 1 | | | | | | | MG LA | | | | | | | DEXAMETHASON | | | | | | | E SODIUM | | | | | | | PHOS, 1 MG | | | | | | | LA | | | | | | | FOSAPREPITAN | | | | | | | T INJECTION, | | | | | | | 1 MG LA | | | | | | | PREDNISONE | | | | | | | IR OR DR | | | | | | | ORAL 1MG LA | | | | | | | | | | | | | | CYCLOPHOSPHA | | | | | | | MIDE 100 MG | | | | | | | INJ LA | | | | | | | DOXORUBICIN | | | | | | | HCL | | | | | | | INJECTION, | | | | | | | 10 MG LA | | | | | | | VINCRISTINE | | | | | | | SULFATE 1 MG | | | | | | | INJ LA | | | | | | | DIPHENHYDRAM | | | | | | | INE HCL | | | | | | | INJECTIO, 50 | | | | | | | MG LA | | | | | | | METHYLPREDNI | | | | | | | SOLONE | | | | | | | INJECTION, | | | | | | | 125 MG LA | | | | | | | DEXAMETHASON | | | | | | | E SODIUM | | | | | | | PHOS, 1 MG | | | | | | | LA | | | | | | | INJECTION, | | | | | | | PEGFILGRASTI | | | | | | | M 6MG LA | | | | | | | NORMAL | | | | | | | SALINE | | | | | | | SOLUTION | | | | | | | INFUS, 500 | | | | | | | ML LA | | | | | | | NORMAL | | | | | | | SALINE | | | | | | | SOLUTION | | | | | | | INFUS, 250 | | | | | | | ML LA | | | | | | | STERILE | | | | | | | WATER/SALINE | | | | | | | , 10 ML LA | | | | | | | CHEMOTHER, | | | | | | | IV PUSH,EA | | | | | | | ADD DRUG LA | | | | | | | CHEMOTHER, | | | | | | | IV INFUSION, | | | | | | | 1 HR LA | | | | | | | CHEMOTHER, | | | | | | | IV INFUSION, | | | | | | | EA HR LA | | | | | | | CHEMOTHER,NO | | | | | | | N-HORMONE | | | | | | | ANTI-NEOPL, | | | | | | | SUB-Q/IM LA | | | | | | | [...] + + + + | 04/23/ | [facility] | [facility] | Miguel Zuniga | 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 | [address] | [place] | [phone] | | [facility] | | [address] | | | - LABORATORY | | [...] | | | FILTRATION | mL/min/1.73m2 | [facility] | | | [place] | RATE,ESTIMATED | | MEDICAL | | | | mL/min/1.74f9Bqic than | | CENTER - | | [...] 3.7 | 3.2 - 5.0 g/dL | [facility] | | | | | | [facility] | | | | | | [...] [address] | [place] | [phone] | | [facility] | | [address] | | | - LABORATORY | | [...] [address] | [place] | [phone] | | [facility] | | [address] | | | - LABORATORY | | [...]
--- OUTSIDE RECORDS SUMMARY | ~2020-01-25 | XMS | Encounter Summary ---
Demographics + + + | Address | [address] | | | [place] [address] | + + + | Home Phone [...] [place] | | | | | [address] | | + + + + + Care Team Providers + +------+ + | Care Electrician'S Assistant Name | Role | Phone | [...] b-cell | Gerber Benson, | [address] [place] | | | | | lymphoma, | MD [address] | [place], | | | | | intra-abdomi | [address] | [place] [address] | | | | | nal lymph | [place], | Phone: | | | | | nodes (HCC) | [place] [address] | [phone] | | | | | Procedures | Phone: | Fax: | | | | | [place] | [phone] | [phone] | | | | | RITUXIMAB | Fax: | | | | | | INJECTION, | [phone] | | | | | | [address] [...] + + + + | 06/19/ | [facility] | [facility] | Mohamud, | Diffuse large B-cell | | 2017 | Encounter | MED CTR CHEMO | Gerber Benson MD [address] | lymphoma of | | | | INFUSION [address] | [address] [place] | intra-abdominal | | | | [place], | [place] [address] | lymph nodes (HCC); | | | | [place] [address] | [phone] | Lymphedema of left | | | | [phone] | | lower extremity | +--------+ + [...] encounter Progress Notes Livier Olsen RN - 06/19/2017 2:52 PM PDTPatient discharged in satisfactory conditio n. [...] | | | | | [place], [place] | | | | | | [address] | | | | | | | | +--------+---------+ + + + documented as of this encounter Procedures + +--------+ + + + | Procedure Name | Priori | Date/Time | Associated Diagnosis | Comments | | | ty | | | | + +--------+ + + + | CBC WITH | STAT | 06/19/2017 | Diffuse large | Results for this | | DIFFERENTIAL | | 8:59 AM | B-cell lymphoma of | procedure are in the | | | | PDT | intra-abdominal | results section. | | | | | lymph nodes (HCC) | | + +--------+ + + + | LACTATE | STAT | 06/19/2017 | Diffuse large | Results for this | | DEHYDROGENASE | | 8:59 AM | B-cell lymphoma of | procedure are in the | | | | PDT | intra-abdominal | results section. | | | | | lymph nodes (HCC) | | + +--------+ + + + | COMPREHENSIVE | STAT | 06/19/2017 | Diffuse large | Results for this | | METABOLIC PANEL | | 8:59 AM | B-cell lymphoma of | procedure are in the | | | | PDT | intra-abdominal | results section. | | | | | lymph nodes (HCC) | | + +--------+ + + + documented in this encounter Results CBC with Differential (06/19/2017 8:59 AM PDT) + + + + + + | Component | Value | Ref Range | Performed | Pathologist | | | | | At | Signature | + + + + + + | WBC | 3.1 (L) | 4.0 - 11.0 K/uL | [facility] | | | | | | [facility] | | | | | | MEDICAL | | | | | | CENTER - | | | | | | LABORATORY | | + + + + + + | RBC | 4.21 (L) | 4.30 - 5.70 | [facility] | | | | | M/uL | [facility] | | | | | | MEDICAL | | | | | | CENTER - | | | | | | LABORATORY | | + + + + + + | Hemoglobin | 12.7 (L) | 13.5 - 18.0 | [facility] | | | | | g/dL | [facility] | | | | | | MEDICAL [...] + + + + | MCV | 85.9 | 83.0 - 101.0 fL | [facility] | | | | | | [facility] | | | | | | MEDICAL | | | | | | CENTER - | | | | | | LABORATORY | | + + + + + + | MCH | 30.2 | 28.0 - 35.0 pg | [facility] [...] + + + + | Platelet | 106 (L) | 140 - 440 K/uL | [...] + + + + | % | 25.1 | 20.0 - 45.0 % | [facility] | | | Lymphocytes | | | [facility] | | | | | | MEDICAL | | | | | | CENTER - | | | | | | LABORATORY | | + + + + + + | % Monocytes | 9.0 | 4.0 - 12.0 % | [facility] | | | | | | [facility] | | | | | | MEDICAL | | | | | | CENTER - | | | | | | LABORATORY | | + + + + + + | % | 2.7 | 0.0 - 5.0 % | [facility] [...] | + + + + + | [facility] | [address] | [place] | [phone] | | [facility] | | [address] | | | - LABORATORY | | | | + + + + + Comprehensive Metabolic Panel (06/19/2017 8:59 AM PDT) + + + + + [...] + + + | Anion Gap | 5 | 3 - 16 mmol/L | [facility] | | | | | | [facility] | | | | | | MEDICAL | | | | | | CENTER - | | | | | | LABORATORY | | + + + + + + | Glucose | 108 | 70 - 109 mg/dL | [facility] | | | | | | [facility] | | | | | | MEDICAL | | | | | | CENTER - | | | | | | LABORATORY | | + + + + + + | BUN | 16 | 7 - 18 mg/dL | [facility] | | | | | | [facility] | | | | | | MEDICAL | | | | | | CENTER - | | | | | | LABORATORY | | + + + + + + | Creatinine | 0.89 | 0.60 - 1.30 | [facility] | | | | | mg/dL | [facility] | | | | | | MEDICAL | | | | | | CENTER - | | | | | | LABORATORY | | + + + + + + | eGFR if not | >60Comment: GLOMERULAR | >=60 | [facility] | | | | FILTRATION | mL/min/1.73m2 | [facility] | | | [place] | RATE,ESTIMATED | | MEDICAL | | | | mL/min/1.96j8Crco than | | CENTER - | | [...] 3.7 | 3.2 - 5.0 g/dL | [facility] [...] Total | appended report. These | | [facility] | | | | results have been | | MEDICAL | | | | appended to a previously | | CENTER - | | | | preliminary verified | | LABORATORY | | | | report. | | | | + + + + + + | Total | 6.0 | 6.0 - 7.8 g/dL | [facility] [...] + + + + | ALT | 23Comment: This is an | 6 - 45 [...] + + + + | Globulin | 2.3 | 2.1 - 3.8 g/dL | [facility] [...] [address] | [place] | [phone] | | [facility] | | [address] | | | - LABORATORY | | | | + + + + + Lactate Dehydrogenase (06/19/2017 8:59 AM PDT) + +-------+ + + + | Component | Value | Ref Range | Performed | Pathologist | | | | | At | Signature | + +-------+ + + + | LDH TOTAL | 147 | 91 - 180 U/L | [facility] [...] [address] | [place] | [phone] | | [facility] | | [address] | | | - LABORATORY | | [...] | acetaminophen (TYLENOL) tablet | Given | 06/19/20 | 650 mg | | | | 650 mg 650 mg, Oral, ONCE, Sun | | 17 10:55 | | | | | 06/19/17 at 1115, For 1 dose, Give | | AM PDT | | | | | 30 minutes prior to riTUXimab., | | | | | | + +--------+ +--------+------+------+ +---+---+ | | | +---+---+ + +-------+ +-------+---+---+ | famotidine (PEPCID) injection | Given | 06/19/20 | 20 mg | | | | 20 mg 20 mg, Intravenous, ONCE, | | 17 10:55 | | | | | 06/19/17 at 1115, For 1 dose, | | AM PDT [...] heparin 100 units/mL flush | Given | 06/19/20 | 500 | | | | injection 500 Units 500 Units (5 | | 17 2:46 | Units | | | | mL), Intracatheter, PRN, Line | | PM PDT | | | | | Care, Starting 06/19/17 at | | | | | | | 1047 | | | | | | + +-------+ +-------+---+---+ +---+---+ | | | +---+---+ + +---------+ + +---+---+ | riTUXimab (RITUXAN) 1,000 mg in | New Bag | 06/19/20 | 1,000 mg | | | | sodium chloride 0.9% 1,000 mL | | 17 11:23 | | | | | infusion 1,000 mg (rounded from | | AM PDT | | | | | 997.5 mg = 375 mg/m2 | | | | | | | 2.66 m2 Treatment plan recorded | | | | | | | BSA), Intravenous, ONCE, Tue | | | | | | | 06/19/17 at 1145, For 1 dose, | | [...]
--- OUTSIDE RECORDS SUMMARY | ~2020-01-25 | XMS | Encounter Summary ---
Demographics + + + | Address | [address] | | | [place] [address] | + + + | Home Phone [...] [place] | | | | | [address] | | + + + + + Care Team Providers + +------+ + | Care Receiving And Processing Supervisor Name | Role | Phone | [...] | Diffuse | Nikhil, | [address] | | | | | large B-cell | Joaquim Benson, | [place], | | | | | lymphoma of | MD [address] | [place] | | | | | | [address] | [address] | | | | | intra-abdomi | [place], | Phone: | | | | | nal lymph | [place] [address] | [phone] | | | | | nodes (HCC) | Phone: | Fax: | | | | | Procedures | [phone] | [phone] | | | | | ECHO | Fax: | | | | | | Complete | [phone] | | +--------+--------+ + + + + Reason for Visit + + + | Reason | Comments | + + + | Follow-up | | + + + Encounter Details +--------+ + + + + | Date | Type | Department | Care Team | Description | +--------+ + + + + | 10/17/ | Hospital | [facility] | Nikhil, | Diffuse large B-cell | | 2017 | Encounter | MED CTR MEDICAL | Joaquim Benson MD [address] | lymphoma of | | | | [facility] [address] | [address] [place] | intra-abdominal | | | | [place] [place] | [place] [address] | lymph nodes (HCC) | | | | [place] [address] | [phone] | (Primary Dx) | | | | [phone] | | | +--------+ + + + [...] original. Hematology/Oncology Progress Note [facility] [place] Pt. Name/Age/: Joaquim Sanchez 66 y.o. 1950 Med. Record Number: [id number] Date of admission: 10/17/2016 Identifying Statement: Joaquim Sanchez is a 66 y.o. male from [address] [place] [address] with Diffuse Large B-Cell Lymphoma. The patient [...] lower extremity. CT abdomen/Pelvis with contrast 2016 ([facility]). Ex tensive periaortic lymphadenopathy (1.8 cm and 2.1 cm respectively), extensive adenopathy ex tending out along the left common iliac artery and encasing the left external iliac artery ( 4.4 cm) with compromise of the left external iliac vein. 2. Open laparotomy with LEFT ileal retroperitoneal lymph node biopsy ([facility], [facility]) June 242015. Specimen #[id number] ([facility]); Diffuse Large B-Cell lymph [...] 10. CT Abdomen/Pelvis at [facility] [place] on September 12, 2016; Positive Response [...] this chart may have been created with [employer] voice recognition software. Occasi onal wrong-word or [...] | | | | | [place], [place] | | | | | | [...] Room Number JR. Patient | | | [id number] Date of Study 10/26/2016 Number | | | Visit Number [id number] | | | Referring Physician NIKHIL MARCH Number | | | C Date of | | | 1950 Steelscope Operator VALENTIN ADRIAN, | | | | | | [facility] Age 66 year(s) | | | Interpreting YAMEL DYKES, | | | Rack Maker Gender | | | Male Nurse Procedure [...] Index: 31 mL/m^2 | | | EF Klbpjugnx43% Left Ventricle Diastolic Dimension: 5.5 cm | [...] | LA Vol/BSA Index: 31 mL/m^2 EF Gtyplwpxs51% | | | | | | Left [...] Rad Results In - 10/27/2016 7:09 AM [facility] Transthoracic Echocardiography Report | | (TTE) Demographics Patient Name [place] Leon Room Number JR. | | Patient [id number] Date of Study 10/26/2016 Number Visit Number | | [id number] Referring Physician NIKHIL MARCH | | Number C Date of 1950 | | Steelscope Operator VALENTIN ADRIAN, | | [facility] Age 66 year(s) Interpreting YAMEL DYKES, | | Rack Maker Gender Male | | NurseProcedureType of Study [...] ml LA Vol/BSA Index: 31 mL/m^2 EF Brfpqvdyb22% Left | | Ventricle Diastolic Dimension: 5.5 [...] | LA Vol/BSA Index: 31 mL/m^2 EF Skihqenby34% | | | | Left Ventricle | [...]
--- OUTSIDE RECORDS SUMMARY | ~2020-01-25 | XMS | Encounter Summary ---
Demographics + + + | Address | [address] | | | [place] [address] | + + + | Home Phone | | + + + | Preferred Language | Unknown | + + + | Marital Status | | + + + | Muslim Affiliation | 1013 | + + + | Race | Unknown | + + + | Ethnic Group | Unknown | + + + Author + + + | Author | [facility] | | | and [place] | + + + | Organization | [facility] | | | [...] [place] | | | | | [address] | | + + + + + Care Team Providers + +------+ + | Care Cardiac Rehabilitation Program Director Name | Role | Phone | + +------+ + | Earle Chacko MD | PCP | | + +------+ + Encounter Details +--------+ + + + + | Date | Type | Department | Care Team | Description | +--------+ + + + + | 04/18/ | Hospital | [facility] | Miguel Zuniga | 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 | | | | INFUSION [address] | [address] [place] | intra-abdominal | | | | [place], | [place] [address] | lymph nodes (HCC) | | | | [place] [address] | [phone] | | | | | [phone] | | | +--------+ + + + [...] [place] | | | | | | [address] | | | | | | | [...]
--- OUTSIDE RECORDS SUMMARY | ~2020-01-25 | XMS | Encounter Summary ---
Demographics + + + | Address | [address] | | | [place] [address] | + + + | Home Phone [...] [place] | | | | | [address] | | + + + + + Care Team Providers + +------+ + | Care Technology Teacher Name | Role | Phone | [...] | large cell | [address] | [place], [place] | | | | | B-cell | [place], | [address] | | | | | lymphoma | [place] [address] | Phone: | | | | | ([facility]) | Phone: | [phone] | | | | | | [phone] | Fax: | | | | | | Fax: | [phone] | | | | | | [phone] | | +--------+ + + + + [...] | Primary | Nikhil, | [address] | | | | | cutaneous | Joaquim C, | [place], | | | | | diffuse | MD [address] | [place] | | | | | large cell | [address] | [address] | | | | | B-cell | [place], | Phone: | | | | | lymphoma | [place] [address] | [phone] | | | | | (HCC) | Phone: | Fax: | | | | | Procedures | [phone] | [phone] | | | | | ECHO | Fax: | | | | | | Complete | [phone] | | +--------+--------+ + + + + [...] | | cutaneous | Joaquim C, | [place] | | | | | diffuse | MD [address] | [place], [place] | | | | | large cell | [address] | [address] | | | | | B-cell | [place], | Phone: | | | | | lymphoma | [place] [address] | [phone] | | | | | (HCC) | Phone: | Fax: | | | | | Procedures | [phone] | [phone] | | | | | PET CT Skull | Fax: | | | | | | Base To Mid | [phone] | | | | | | Thigh [...] | | cell | [place], | [place], [place] | | | | | lymphoma | [place] [address] | [address] Phone: | | | | | Procedures | Phone: | [phone] | | | | | PA OFFICE | [phone] | Fax: | | | | | OUTPATIENT | Fax: | [phone] | | | | | VISIT 25 | [phone] | | | | | | MINUTES | | | | | | | Evaluate | | | +--------+ + + + + + Encounter Details +--------+ + + + + | Date | Type | Department | Care Team | Description | +--------+ + + + + | 07/18/ | Hospital [facility] | Nikhil, | Primary cutaneous | | 2016 | Encounter | [facility] | Joaquim Benson MD [address] | diffuse large cell | | | | ONCOLOGY CLINIC [address] | [address] [place] | B-cell lymphoma | | | | [address] [place] | [place] [address] | (HCC) (Primary Dx); | | | | [place] [address] | [phone] | Diffuse large B-cell | | | | [phone] | | lymphoma of | | | [...] nt from the original. Hematology/Oncology Progress Note [facility] DANIEL Bl[place] Pt. Name/Age/: Joaquim Galindo 66 y.o. 1950 Med. Record Number: [id number] Date of admission: 07/18/2016 Identifying Statement: Joaquim Galindo is a 66 y.o. male from [address] [address] with Diffuse Large B-Cell Lymphoma. The patient [...] [facility]) June 242015. Specimen #[id number] ([facility] Pathology); Diffuse Large B-Cell lymph raciel, germinal center subtype (75%). 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 Overall Ki-67 expre ssion 70%. Current Assessment & Plan This was an extended, 60 minute, office encounter with Joaquim Galindo "TAMMY" and his wi fe Mara at the [facility] on 07/18/2016. We reviewed his presentation [...] Assessment and Plan. Complete blood counts from [facility] July 06, 2016 white co unt 7700 hemoglobin 10.9 g/dL hematocrit 33% platelet count 147,000. Complete metabolic panel [facility] July 06, 2016 uric acid 6 .8 [...] prior history of sleep apnea syndrome. The [place] [employer]hes[employer] patient classification is class [...] this chart may have been created with [employer] voice recognition software. Occasi onal wrong-word or [...] | | | | | | [facility] [place] | | | | | | [address] | | | | | | | [...] Number JOAQUIM Patient Number | | | [id number] Date of Study 07/21/2016 Visit Number | | | [id number] Referring Physician | | | NIKHIL JOAQUIM C Number Date of 1950 | | | Care Transition Coordinator SUNSHINE ROSA [facility] Age | | | 66 year(s) Interpreting YAMEL DYKES MD | | | Wire Drawing Machine Operator Gender | | | Male Nurse Procedure [...] Index: 17 mL/m^2 | | | EF Jrqfldtpe11% Left Ventricle Diastolic Dimension: | | | [...] | LA Vol/BSA Index: 17 mL/m^2 EF Dlqtebblj58% | | | | | | Left [...] Room Number JOAQUIM | | Patient Number [id number] Date of Study 07/21/2016 Visit Number | | [id number] Referring Physician NIKHIL Benson | | Number Date of 1950 Care Transition Coordinator SUNSHINE ROSA [facility] Age | | 66 year(s) Interpreting YAMEL DYKES MD | | Wire Drawing Machine Operator Gender Male NurseProcedureType of Study TTE | [...] Vol/BSA Index: | | 17 mL/m^2 EF Luavbnxxc80% Left Ventricle Diastolic Dimension: | | 4.8 [...] | LA Vol/BSA Index: 17 mL/m^2 EF Oaitdmjcu56% | | | | Left Ventricle | [...]
--- OUTSIDE RECORDS SUMMARY | ~2020-01-25 | XMS | Encounter Summary ---
Demographics + + + | Address | [address] | | | [place] [address] | + + + | Home Phone [...] [place] | | | | | [address] | | + + + + + Care Team Providers + +------+ + | Care Grades 1 Thru 6 Visiting Teacher Name | Role | Phone | [...] [address] [place] | | | | | [place], | [place] [address] | | | | | [place] [address] | [phone] | | | | | [phone] | | | +--------+ + + + [...] JOHNSON | | | | | | [place] | | | | | | [address] | | | | | | | | +--------+---------+ + + + documented as of this encounter Visit Diagnoses Not on filedocumented in this encounter"
--- OUTSIDE RECORDS SUMMARY | ~2020-01-25 | XMS | Encounter Summary ---
Demographics + + + | Address | [address] | | | [place] [address] | + + + | Home Phone [...] [place] | | | | | [address] | | + + + + + Care Team Providers + +------+ + | Care Injection Operator Name | Role | Phone | [...] | | | nal lymph | [place] [address] | [address] | | | | | nodes (HCC) | Phone: | Phone: | | | | | Procedures | [phone] | [phone] | | | | | CT Abdomen | Fax: | Fax: | | | | | Pelvis w | [phone] | [phone] | | | | | Contrast | [...] + + | 09/05/ | Hospital | [facility] | Mohamud, | Diffuse large B-cell | | 2016 | Encounter | [facility] | Joaquim Benson MD [address] | lymphoma of | | | | ONCOLOGY CLINIC [address] | [address] [place] | intra-abdominal | | | | [address] [place] | [place] [address] | lymph nodes (HCC) | | | | [place] [address] | [phone] | (Primary Dx) | | | | [phone] | | | +--------+ + + + [...] nt from the original. Hematology/Oncology Progress Note [facility] [place] Pt. Name/Age/: Joaquim Sanchez 66 y.o. 1950 Med. Record Number: [id number] Date of admission: 09/05/2016 Identifying Statement: Joaquim Sanchez is a 66 y.o. male from [address] [address] with Diffuse Large B-Cell Lymphoma. The patient [...] ileal retroperitoneal lymph node biopsy ([facility], [facility]) June 242015. [id number] [facility] Diffuse Large B-Cell lymph [...] growth fact or support with Neulasta at [facility] in [facility] tomorrow. He'll be mayra eduled for a CT scan of the chest/abdomen/pelvis at [facility] in [facility] to assess response. Return to [facility] in about 10 days for [...] THE PREDNISONE Schedule CT of Abdomen/Pelvis at [facility] in about a week. . arrange marco [...] this chart may have been created with [employer] voice recognition software. Occasi onal wrong-word or [...] | | | | | [facility] [place] | | | | | | [address] | | | | | | | [...]
--- OUTSIDE RECORDS SUMMARY | ~2020-01-25 | XMS | Encounter Summary ---
Demographics + + + | Address | [address] | | | [place] [address] | + + + | Home Phone [...] [place] | | | | | [address] | | + + + + + Care Team Providers + +------+ + | Care Epic [facility]ists Name | Role | Phone | + [...] | | | ONCOLOGY CLINIC [address] | [address] | | | | | [address] [place] | [place] [address] | | | | | [place] [address] | [phone] | | | | | [phone] | | | +--------+ + + + [...] from the original. IDT PATIENT MEDICATION/PROFILE REVIEW [facility] Pharmacy [...] [facility]OP alone in elderly patients with diffuse fuvbk-W-tfqa lymphoma. NEJM 2002; 346:235- 242. Pertinent Medical [...] | | | | | DARR[place] Piper [place], [place] | | | | | | [address] | | | | | | | | +--------+---------+ + + + documented as of this encounter Visit Diagnoses + + | Diagnosis | + + | 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
--- OUTSIDE RECORDS SUMMARY | ~2020-01-25 | XMS | Encounter Summary ---
Demographics + + + | Address | [address] | | | [place] [address] | + + + | Home Phone | | + + + | Preferred Language | Unknown | + + + | Marital Status | | + + + | Yazidi Affiliation | 1013 | + + + [...] [place] | | | | | [address] | | + + + + + Care Team Providers + +------+ + | Care Swine Nutritionist Name | Role | Phone | + [...] | | ONCOLOGY CLINIC [address] | [address] [facility] | | | | | [address] [place] | [place] [address] | | | | | [place] [address] | [phone] | | | | | [phone] | | | +--------+ + + + [...] [place] | | | | | | [address] | | | | | | | | +--------+---------+ + + + documented as of this encounter Visit Diagnoses Not on filedocumented in this encounter"
--- OUTSIDE RECORDS SUMMARY | ~2020-01-25 | XMS | Encounter Summary ---
Demographics + + + | Address | [address] | | | [place] [address] | + + + | Home Phone [...] [place] | | | | | [address] | | + + + + + Care Team Providers + +------+ + | Care Box Repairer Name | Role | Phone | + [...] | | Lymphedema | Mohamud, | [address] | | | | | of left | Joaquim Benson, | [place], | | | | | lower | MD [address] | [place] [address] | | | | | extremity | [address] | Phone: | | | | | Procedures | [place], | [phone] | | | | | CT Abdomen | [place] [address] | Fax: | | | | | Pelvis w | Phone: | [phone] | | | | | Contrast | [phone] | | | | | | | Fax: | | | | | | | [phone] | | +--------+--------+ + + + + Reason for Visit + + + | Reason | Comments | + + + | Follow-up | | + + + Encounter Details +--------+ + + + + | Date | Type | Department | Care Team | Description | +--------+ + + + + | 02/26/ | Hospital | [facility] | Mohamud, | Lymphedema of left | | 2017 | Encounter | [facility] | Joaquim Bensno MD [address] | lower extremity | | | | ONCOLOGY CLINIC [address] | [address] [place] | (Primary Dx); | | | | [address] [place] | [place] [address] | Diffuse large B-cell | | | | [place] [address] | [phone] | lymphoma of | | | | [phone] | | intra-abdominal | | | | [...] nt from the original. Hematology/Oncology Progress Note [facility] DANIEL Blanca Pt. Name/Age/: Joaquim Sanchez Jr. 66 y.o. 1950 Med. Record Number: [id number] Date of admission: 02/26/2017 Identifying Statement: Joaquim Sanchez Jr. is a 66 y.o. male from [address] [address] with Mixed Diffuse Large B-Cell/Follicular Lymphoma. The [...] lower extremity. CT abdomen/Pelvis with contrast 2016 ([facility]). Ex tensive periaortic lymphadenopathy (1.8 cm and 2.1 cm respectively), extensive adenopathy ex tending out along the left common iliac artery and encasing the left external iliac artery ( 4.4 cm) with compromise of the left external iliac vein. 2. Open laparotomy with LEFT ileal retroperitoneal lymph node biopsy ([facility], [facility]) June 242015. Specimen #[id number] ([facility] Pathology); Diffuse Large B-Cell lymph [...] September 04, 2016. 10. CT Abdomen/Pelvis at [facility] on September 12, 2016; Positive [...] (PRIMA protocol). 14. Repeat CT scan at [facility] [place] on December 01, [address] able [...] 21 mm Current Assessment & Plan Joaquim Sanchze Jr. returned to clinic on 02/26/2017 with his , Mara, for follow -up and his third cycle of maintenance rituximab for his composite diffuse Large B-Cell Lymp selina, at least stage III. The interval history is notable for the fact that Rios's director of industrial relations prescribed Sinemet 10/ 100 for his restless [...] n the nails being extracted by his director of industrial relations and these are growing back slowly. Headaches have resolved. Decreased visual acuity has resolved. Chest pain or palpitations and dyspne a on exertion have resolved. 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 Clinica l exam is notable for stable left lower extremity lymphedema. Rios is working with Nemesio at [facility] physical therapy who is administering manual therapy [...] Rebel, R.H., Andie Menezes., Michael Trejo., Michael, TChristianE., Dara, TatyT., Fatoumata, P .P.: Toxicity And Response Criteria [...] 2006 , Vol. 47, No. 6, pp 2198-6875. In the first article, an observational study [...] (5 mL), Intercatheter, PRN, Line Care, Starting 02/26/17 at 1157 OrderHist ory PRN Medications LORazepam [...] , loss of consciousness). Stop infusion, activate mikayla zamora and notify . OrderHistory JOAQUIM TEJEDA MD Portions of this chart may have been created with [employer] voice recognition software. Occasi onal wrong-word or [...] | | | | | DARR[place] | | | | | | [id number] | | | | | | | [...]
--- OUTSIDE RECORDS SUMMARY | ~2020-01-25 | XMS | Encounter Summary ---
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 Hem-Onc Progress Note [facility] Pt. Name/Age/: Gerber Galindo 66 y.o. 1950 Med. Record Number: [id number] Date of admission: 09/14/2016 Assessment and plan: [...] Gerber Galindo is a 66 y.o. male returns [...] Electronically signed by: Miguel Zuniga, 09/14/2016 15:10 [facility] TIME SPENT 25 MIN. > 50% AT BEDSIDE, WITH FAMILY/PATIENT IN CARE AND ALARM SECURITY OR SURVEILLANCE MONITOR ON UNIT AND CO ORDINATION OF CARE Portions of this chart may have been created with [employer] voice recognition software. Occasi onal wrong-word or sound-alike substitutions may have occurred due to the inherent valencia itations of voice recognition software. Please read the chart carefully and recognize, using context, where these substitutions have occurred. [facility] RN - 09/14/2016 1:43 PM [...] dry skin. Pain: 3/10 headache right now. Note: Here for follow [...] | | | | | D[place] | | | | | | [address] | | | | | | | [...] + | [facility] | [address] | [place] | [phone] | | [facility] | | [address] | | | - LABORATORY | | [...] | | Critical Result called | | YUE | | | | to and read [...] | | Monocytes | | K/uL | YUE | | [...] + | [facility] | [address] | [place] | [phone] | | [facility] | | [address] | | | - LABORATORY | | [...] | mL/min/1.73m2 | YUE | | | [facility] | RATE,ESTIMATED | | MEDICAL | | | | mL/min/1.80w9Zeqa than | | CENTER - | | [...] | 9.1 | 8.3 - 10.5 | [facility] | | | | | mg/dL | [facility] | | | | | | MEDICAL | | | | | | CENTER - | | | | | | LABORATORY | | + + + + + + | Albumin | 3.4 | 3.2 - 5.0 g/dL | [facility] [...] + | [facility] | [address] | [place] | [phone] | | [facility] | | [address] | | | - LABORATORY | | | | + + + + + Lactate Dehydrogenase (09/14/2016 1:31 PM PST) + +-------+ + + + | Component | Value | Ref Range | Performed | Pathologist | | | | | At | Signature | + +-------+ + + + | LDH TOTAL | 144 | 91 - 180 U/L | [facility] [...] | + + + + + | [facility] | [address] | [place] | [phone] | | [facility] | | [address] | | | - LABORATORY | | [...]
--- OUTSIDE RECORDS SUMMARY | ~2020-01-25 | XMS | Encounter Summary ---
Demographics + + + | Address | [address] | | | [place] [address] | + + + | Home Phone [...] [place] | | | | | [address] | | + + + + + Care Team Providers + +------+ + | Care Pressurization Mechanic Name | Role | Phone | [...] | ONCOLOGY CLINIC [address] | [address] [facility] | | | | | [address] | [place] [address] | | | | | [place] [address] | [phone] | | | | | [phone] | | | +--------+ + + + [...] [place] | | | | | | [address] | | | | | | | | +--------+---------+ + + + documented as of this encounter Visit Diagnoses Not on filedocumented in this encounter"
--- OUTSIDE RECORDS SUMMARY | ~2020-01-25 | XMS | Encounter Summary ---
Demographics + + + | Address | [address] | | | [place] [address] | + + + | Home Phone [...] [place] | | | | | [address] | | + + + + + Care Team Providers + +------+ + | Care Healthcare Insurance Sales Agent Name | Role | Phone | + [...] large b-cell | Gerber Benson, | [address] [place] | | | | | lymphoma, | MD [address] | [place], | | | | | intra-abdomi | [address] | [place] [address] | | | | | nal lymph | [place], | Phone: | | | | | nodes (HCC) | [place] [address] | [phone] | | | | | Procedures | Phone: | Fax: | | | | | [place] | [phone] | [phone] | | | | | INJECTION, | Fax: | | | | | | FAMOTIDINE, | [phone] | | | | | | 20 [...] [place] | intra-abdominal | | | | [place], | [place] [address] | lymph nodes (HCC) | | | | [place] [address] | [phone] | | | | | [phone] | | | +--------+ + + + [...] [place] | | | | | | [address] | | | | | | | [...] + | [facility] | [address] | [place] | [phone] | | [facility] | | [address] | | | - LABORATORY | | [...] | | | FILTRATION | mL/min/1.73m2 | [facility] | | | GRENADIAN | RATE,ESTIMATED | | MEDICAL | | | | mL/min/1.31n9Sing than | | CENTER - | | [...] | 9.4 | 8.3 - 10.5 | [facility] | | | | | mg/dL | Christian [facility] | | | | | | MEDICAL | | | | | | CENTER - | | | | | | LABORATORY | | + + + + + + | Albumin | 3.6 | 3.2 - 5.0 g/dL | [facility] | | | | | | [facility] | | | | | [...] + | [facility] | [address] | [place] | [phone] | | [facility] | | [address] | | | - LABORATORY | | | | + + + + + Lactate Dehydrogenase (05/20/2018 8:09 AM PDT) + +-------+ + + + | Component | Value | Ref Range | Performed | Pathologist | | | | | At | Signature | + +-------+ + + + | LDH TOTAL | 136 | 91 - 180 U/L | [facility] [...] ST[facility] | [address] | [place], [place] | [phone] | | [facility] | | [address] | | | - LABORATORY | | [...] 18 9:26 | | | | | 18 at 0913, For 1 dose, Give | [...]
--- OUTSIDE RECORDS SUMMARY | ~2020-01-25 | XMS | Encounter Summary ---
Demographics + + + | Address | [address] | | | [place] [address] | + + + | Home Phone [...] [place] | | | | | [address] | | + + + + + Care Team Providers + +------+ + | Care Senior Financial Reporting Analyst Name | Role | Phone | [...] [place] | | | | | [address] | [place] [address] | | | | | [place] [address] | [phone] | | | | | [phone] | | | +--------+ + + + [...] [place] | | | | | | [address] | | | | | | | | +--------+---------+ + + + documented as of this encounter Visit Diagnoses Not on filedocumented in this encounter"
--- OUTSIDE RECORDS SUMMARY | ~2020-01-25 | XMS | Encounter Summary ---
Demographics + + + | Address | [address] | | | [place] [address] | + + + | Home Phone [...] [place] | | | | | [address] | | + + + + + Care Team Providers + +------+ + | Care Fittings Finisher Name | Role | Phone | + [...] large b-cell | Gerber Benson, | [address] | | | | | lymphoma, | MD [address] | [place], | | | | | intra-abdomi | [address] | [place] [address] | | | | | nal lymph | [place], | Phone: | | | | | nodes (HCC) | [place] [address] | [phone] | | | | | Procedures | Phone: | Fax: | | | | | [place] | [phone] | [phone] | | | | | INJECTION, | Fax: | | | | | | FAMOTIDINE, | [phone] | | | | | | 20 [...] [place] | intra-abdominal | | | | [address] [place], | [place] [address] | lymph nodes (HCC) | | | | [place] [address] | [phone] | | | | | [phone] | | | +--------+ + + + [...] [place] | | | | | | [address] | | | | | | | [...] | Lymphocytes | | K/uL | [facility] | | | | | | MEDICAL [...] + | [facility] | [address] | [place] | [phone] | | [facility] | | [address] | | | - LABORATORY | | [...] | | FILTRATION | mL/min/1.73m2 | [facility] | | | CH[place]AN | RATE,ESTIMATED | | MEDICAL | | | | mL/min/1.49y8Zwhw than | | CENTER - | | [...] | | | | mg/dL | [facility] | | | | | | MEDICAL [...] [address] | [place] | [phone] | | [facility] | | [address] | | | - LABORATORY | | | | + + + + + Lactate Dehydrogenase (01/28/2018 8:06 AM PDT) + +-------+ + + + | Component | Value | Ref Range | Performed | Pathologist | | | | | At | Signature | + +-------+ + + + | LDH TOTAL | 135 | 91 - 180 U/L | [facility] [...] [address] | [place] | [phone] | | [facility] | | [address] | | | - LABORATORY | | [...] injection 500 Units 500 Units ( | 18 1:25 | Units | | [...]
--- OUTSIDE RECORDS SUMMARY | ~2020-01-25 | XMS | Encounter Summary ---
Demographics + + + | Address | [address] | | | [place] [address] | + + + | Home Phone | | + + + | Preferred Language | Unknown | + + + | Marital Status | | + + + | Yazidi Affiliation | 1013 | + + + | Race | Unknown | + + + | Ethnic Group | Unknown | + + + Author + + + | Author | [facility] | | | and [place] | + + + | Organization | [facility] | | | [...] [place] | | | | | [address] | | + + + + + Care Team Providers + +------+ + | Care Chief Controller Name | Role | Phone | [...] lower | MD [address] | | | | | extremity | [address] | [place], | | | | | | [place], | [place] [address] | | | | | | [place] [address] | Phone: | | | | | | Phone: | [phone] | | | | | | [phone] | Fax: | | | | | | Fax: | [phone] | | | | | | [phone] | | +--------+ + + + + + Reason for Visit + + + | Reason | Comments | + + + | Follow-up | | + + + Encounter Details +--------+ + + + + | Date | Type | Department | Care Team | Description | +--------+ + + + + | 08/24/ | Hospital | [facility] | Pending Sale To [facility], | Diffuse large B-cell | | 2016 | Encounter | MED CTR MED[facility] | Joaquim Benson MD [address] | lymphoma of | | | | ONCOLOGY CLINIC [address] | [address] [place] | intra-abdominal | | | | [address] [place] | [place] [address] | lymph nodes (HCC) | | | | [place] [address] | [phone] | (Primary Dx); | | | | [phone] | | Lymphedema of left | | [...] nt from the original. Hematology/Oncology Progress Note [facility] [place] Pt. Name/Age/: Joaquim Sanchez 66 y.o. 1950 Med. Record Number: [id number] Date of admission: 08/24/2016 Identifying Statement: Joaquim Sanchez is a 66 y.o. male from [address] [address] with Diffuse Large B-Cell Lymphoma. The patient [...] [facility]) June 242015. Specimen #[id number] ([facility]ology); Diffuse Large B-Cell lymph [...] this chart may have been created with [employer] voice recognition software. Occasi onal wrong-word or [...] [place] | | | | | | [address] | | | | | | | [...] [address] | [place] | [phone] | | [facility] | | [address] | | | - LABORATORY | | [...] diff needed | [facility] | | | [facility] | | | [facility] | | | - LABORATORY | + + + + + + + + | Performing | Address | City/State/Zipcode | Phone Number | | Organization | | | | + + + + + | [facility] | [address] | [place] | [phone] | | [facility] | | [address] | | | - LABORATORY | | [...] [address] | [place] | [phone] | | [facility] | | [address] | | | - LABORATORY | | [...] | | | | | [place] [address] | | | | + + + [...] [address] | [place] [address] | [phone] | + + + + + Uric [...] ST. | [address] | [place], [place] | [phone] | | [facility] | | [address] | | | - LABORATORY | | [...] | mL/min/1.73m2 | YUE | | | INDONESIAN | RATE,ESTIMATED | | MEDICAL | | | | mL/min/1.51f9Llrq than | | CENTER - | | [...] + | [facility] | [address] | [place], [place] | [phone] | | [facility] | | [address] | | | - LABORATORY | | [...] + | [facility] | [address] | [place] | [phone] | | [facility] | | [address] | | | - LABORATORY | | [...]
--- OUTSIDE RECORDS SUMMARY | ~2020-01-25 | XMS | Encounter Summary ---
Demographics + + + | Address | [address] | | | [place] [address] | + + + | Home Phone [...] [place] | | | | | [address] | | + + + + + Care Team Providers + +------+ + | Care Waiter/Waitress Head Name | Role | Phone | [...] | | Diffuse | Mohamud, | [address] | | | | | large B-cell | Joaquim C, | [place], | | | | | lymphoma of | MD [address] | [place] [address] | | | | | | [address] | Phone: | | | | | intra-abdomi | [place], | [phone] | | | | | nal lymph | [place] [id number] | Fax: | | | | | nodes (HCC) | Phone: | [phone] | | | | | Procedures | [phone] | | | | | | CT Chest | Fax: | | | | | | Abdomen | [phone] | | | | | | Pelvis [...] + + | 11/07/ | Hospital | [facility] | Mohamud, | Diffuse large B-cell | | 2017 | Encounter | MED CTR MEDICAL | Joaquim Benson MD [address] | lymphoma of | | | | ONCOLOGY CLINIC [address] | [address] [place] | intra-abdominal | | | | [address] [place] | [place] [address] | lymph nodes (HCC) | | | | [place] [address] | [phone] | (Primary Dx) | | | | [phone] | | | +--------+ + + + [...] nt from the original. Hematology/Oncology Progress Note [facility] [place] Pt. Name/Age/: Joaquim Sanchez Jr. 66 y.o. 1950 Med. Record Number: [id number] Date of admission: 11/07/2016 Identifying Statement: Joaquim Sanchez Jr. is a 66 y.o. male from [address] [address] with Diffuse Large B-Cell Lymphoma. The patient [...] ([facility], [facility]) June 242015. Specimen #[id number] ([facility] Pathology); Diffuse Large B-Cell lymph [...] will undergo repe at imaging at the [facility] in [place], [place]. Review of Systems: Constitutional: Reports energy [...] this chart may have been created with [employer] voice recognition software. Occasi onal wrong-word or [...] | | | | [facility] [place] | | | | | | [id number] | | | | | | | [...]
--- OUTSIDE RECORDS SUMMARY | ~2020-01-25 | XMS | Clinical Summary ---
Demographics + + + | Address | [address] | | | [place] [address] | + + + | Home Phone | | + + + | Preferred Language | Unknown | + + + | Marital Status | | + + + | Denominational Affiliation | 1013 | + + + | Race | Unknown | + + + | Ethnic Group | Unknown | + + + Author + + + | Author | [facility] | | | and [place] | + + + | Organization | [facility] | | | [...] [place] | | | | | [address] | | + + + + + Care Team Providers + +------+ + | Care Flight Service Agent Name | Role | Phone | [...] + + | Coronary artery disease involving [place] coronary artery of | 02/20/2018 | | [place] heart without angina pectoris | | + [...] lower | | extremity venous doppler 2016 ([facility]) No DVT left lower | | extremity. CT abdomen/Pelvis with contrast 2016 | | ([facility]). Extensive periaortic lymphadenopathy (1.8 cm and 2.1 cm | | respectively), extensive adenopathy extending out along the left | | common iliac artery and encasing the left external iliac artery | | (4.4 cm) with compromise of the left external iliac vein.2. Open | | laparotomy with LEFT ileal retroperitoneal lymph node biopsy | | ([facility]) July 05, 2016. Specimen #[id number] ([facility], | | [facility]); Diffuse Large B-Cell lymphoma, germinal | [...] 04, 2016.10. CT Abdomen/Pelvis | | at [facility] on September 12, 2016; | [...] protocol).14. Repeat CT scan at | | [facility], [place], [place] on December 01, 2016 | | [...] [address] scan at [facility] on April 18 | | 2016 [...] | mm 16. Repeat CT scan at [facility] on November 21, | | 2017 [...] [address] scan at [facility] on | | September 09, 2018 [...] negative for any signs of | | nufilsb-ugubi-gzcgazzyrdk.Assessment; composite mixed diffuse | | large B-cell/follicular [...] lower extremity venous | | doppler 2016 ([facility]) No DVT left lower extremity. CT | | abdomen/Pelvis with contrast 2016 ([facility]). Extensive | | periaortic lymphadenopathy (1.8 [...] [facility]) | | July 05, 2016. Specimen #[id number] ([facility] | | Pathology); Diffuse Large B-Cell lymphoma, [...] on September 04, 2016.10. CT Abdomen/Pelvis at [place] | [facility] on September 12, 2016; Positive [...] years (PRIMA protocol).14. Repeat CT scan at [place], [place] on December 01, 2016 demonstrated stable [...] [address] scan at [facility] on April 18, 2017 demonstrated decreased [...] [address]. [address] scan at [facility] on November 21, 2017 demonstrated decreased [...] lower extremity venous | | doppler 2016 ([facility]) No DVT left lower extremity. CT | | abdomen/Pelvis with contrast 2016 ([facility]). Extensive | | periaortic lymphadenopathy (1.8 cm and 2.1 cm respectively), | | extensive adenopathy extending out along the left common iliac | | artery and encasing the left external iliac artery (4.4 cm) with | | compromise of the left external iliac vein.2. Open laparotomy | | with LEFT ileal retroperitoneal lymph node biopsy ([facility], [facility]) | | July 05, 2016. Specimen #[id number] ([facility] | | Pathology); Diffuse Large B-Cell lymphoma, [...] on September 04, 2016.10. CT Abdomen/Pelvis at [facility] [place] on September 12, 2016; Positive [...] years (PRIMA protocol).14. Repeat CT scan at [place], [place] on December 01, 2016 demonstrated stable [...] [address]. [address] scan at [facility] on April 18, 2017 demonstrated decreased [...] [address] scan at [facility] on November 21, 2017 demonstrated decreased [...] 17. Repeat CT scan | | at [facility] on September 09, 2018 demonstrated | [...] negative for any signs of | | vnxvcfg-kvcre-azzsddokjzk.Assessment; composite mixed diffuse | | large B-cell/follicular [...] | | | | | [place] | | | | | | [address] | | | | | | | [...] +--------+ +---------+--------+ | MEDICARE | MEDICA | [id number] | | [phone] | | Medica | | | RE | | 016-Pr | 5 | | re | | | PART A | | esent | | | | | | AND B | | | | | | + +--------+ +--------+ +---------+--------+ | MEDICARE | MEDICA | [id number] | | [phone] | | Medica | | | RE | | 016-Pr | 5 | | re | | | PART A | | esent | | | | | | AND B | | | | | | + +--------+ +--------+ +---------+--------+ | BCBS | BCBS | [id number] | | | | PPO | | | FEDERA | | 016-Pr | | | | | | L FEP | | esent | | | | + +--------+ +--------+ +---------+--------+ | BCBS | BCBS | [id number] | 09/24/19 | | | PPO | [...] | | al/Fam | | 1950 | [phone] | [place] | | | [place] | | | 0 (Home) | [address] | + +--------+ +--------+ + + | Gerber Galindo | Person | Self | [birth year] | [address] | | | al/Fam | | 1950 | [phone] | [place] | | | [place] | | | 0 (Home) | [address] | + +--------+ +--------+ + + Advance Directives + + + + + | Type | Date Recorded | Patient | Explanation | | | | Instrument Worker | | + + + + + | Power of | | | | | Senior Electrical Engineer | | | | + + + + + | Advance | | | | | Directive | | | | + + + + +
--- OUTSIDE RECORDS SUMMARY | ~2020-01-25 | XMS | Encounter Summary ---
Demographics + + + | Address | [address] | | | [place] [address] | + + + | Home Phone | | + + + | Preferred Language | Unknown | + + + | Marital Status | | + + + | Yazdanism Affiliation | 1013 | + + + | Race | Unknown | + + + | Ethnic Group | Unknown | + + + Author + + + | Author | [facility] | | | and [place] | + + + | Organization | [facility] | | [...] [place] | | | | | [address] | | + + + + + Care Team Providers + +------+ + | Care Box Car Washer Name | Role | Phone | [...] | ONCOLOGY CLINIC [address] | [address] [facility] | | | | | [address] | [place] [address] | | | | | [place] [address] | [phone] | | | | | [phone] | | | +--------+ + + + [...] [place] | | | | | | [address] | | | | | | | | +--------+---------+ + + + documented as of this encounter Visit Diagnoses Not on filedocumented in this encounter"
--- OUTSIDE RECORDS SUMMARY | ~2020-01-25 | XMS | Encounter Summary ---
Demographics + + + | Address | [address] | | | [place] [address] | + + + | Home Phone | | + + + | Preferred Language | Unknown | + + + | Marital Status | | + + + | Protestant Affiliation | 1013 | + + + | Race | Unknown | + + + | Ethnic Group | Unknown | + + + Author + + + | Author | [facility] | | | and [place] | + + + | Organization | [facility] | [...] [place] | | | | | [address] | | + + + + + Care Team Providers + +------+ + | Care Head Of Strategy Name | Role | Phone | + [...] | | | nal lymph | [place] [address] | [address] Phone: | | | | | nodes (HCC) | Phone: | [phone] | | | | | Procedures | [phone] | Fax: | | | | | [address] | Fax: | [phone] | | | | | | [phone] | | +--------+--------+ + + + + Encounter Details +--------+ + + + + | Date | Type | Department | Care Team | Description | +--------+ + + + + | 12/03/ | Hospital | [facility] | Mohamud, | Diffuse large B-cell | | 2018 | Encounter | MED CTR MEDICAL | Joaquim Benson MD [address] | lymphoma of | | | | ONCOLOGY CLINIC [address] | [address] [place] | intra-abdominal | | | | [address] [place] | [place] [address] | lymph nodes (HCC) | | | | [place] [address] | [phone] | | | | | [phone] | | | +--------+ + + + [...] nt from the original. Hematology/Oncology Progress Note [facility] [place] Pt. Name/Age/: Joaquim Sanchez Jr. 67 y.o. 1950 [facility]. Record Number: [id number] Date of admission: 12/03/2017 The patient's primary care provider is Kelsey Quintanilla MD. Identifying Statement: Joaquim Sanchez Jr. is a 67 y.o. male from [address] [address] with Mixed Diffuse Large B-Cell/Follicular Lymphoma in [...] node biopsy ([facility]) June 242015. [id number] [facility] Diffuse Large B-Cell [...] protocol). 14. Repeat CT scan at [facility], [place], [place] on December 01, [address] [...] [address] scan at [facility] on April 18, 2017 demonstrated decreased left [...] limiting. November 21, 2017 CT scan at [facility] was reviewed and indicates ongoing diminution of residual left iliac lymphad enopathy. Assessment: Composite diffuse large B-cell/follicular lymphoma, stage IIIA or higher-[facility] ed. Plan; Proceed today with Cycle [...] 2006 , Vol. 47, No. 6, pp 0026-8873. In the first article, an observational study [...] observational study, by Marques et al from [facility] th at reports neutropenia developed in [...] this chart may have been created with [employer] voice recognition software. Occasi onal wrong-word or [...] [place] | | | | | | [address] | | | | | | | | +--------+---------+ + + + documented as of this encounter Visit Diagnoses + + | Diagnosis | + + | Diffuse large B-cell lymphoma of intra-abdominal lymph nodes (HCC) Other malignant | | lymphomas of intra-abdominal lymph nodes | + + documented in this encounter
--- OUTSIDE RECORDS SUMMARY | ~2020-01-25 | XMS | Encounter Summary ---
Demographics + + + | Address | [address] | | | [place] [address] | + + + | Home Phone [...] [place] | | | | | [address] | | + + + + + Care Team Providers + +------+ + | Care Hired Hand Name | Role | Phone | + [...] | | | | large b-cell | eGrber Benson, | [address] | | | | | lymphoma, | MD [address] | [place], | | | | | intra-abdomi | [address] | [place] [address] | | | | | nal lymph | [place], | Phone: | | | | | nodes (HCC) | [place] [address] | [phone] | | | | | Procedures | Phone: | Fax: | | | | | [place] | [phone] | [phone] | | | | | RITUXIMAB | Fax: | | | | | | INJECTION, | [phone] | | | | | | 100 MG ME | | | | | | | MEPERIDINE | | | | | | | HYDROCHL | | | | | | | /100 MG ME | | | | | | | IV INFUSION, | | | | | | | HYDRATION, | | | | | | | 31-60 MIN | | | | | | | ME IV | | | | | | | INFUSION, | | | | | | | HYDRATION, | | | | | | | EA ADD HOUR | | | | | | | ME | | | | | | | ONDANSETRON | | | | | | | HCL | | | | | | | INJECTION, 1 | | | | | | | MG ME | | | | | | | DEXAMETHASON | | | | | | | E SODIUM | | | | | | | PHOS, 1 MG | | | | | | | ME | | | | | | | FOSAPREPITAN | | | | | | | T INJECTION, | | | | | | | 1 MG ME | | | | | | | PREDNISONE | | | | | | | IR OR DR | | | | | | | ORAL 1MG ME | | | | | | | | | | | | | | CYCLOPHOSPHA | | | | | | | MIDE 100 MG | | | | | | | INJ ME | | | | | | | DOXORUBICIN | | | | | | | HCL | | | | | | | INJECTION, | | | | | | | 10 MG ME | | | | | | | VINCRISTINE | | | | | | | SULFATE 1 MG | | | | | | | INJ ME | | | | | | | DIPHENHYDRAM | | | | | | | INE HCL | | | | | | | INJECTIO, 50 | | | | | | | MG ME | | | | | | | METHYLPREDNI | | | | | | | SOLONE | | | | | | | INJECTION, | | | | | | | 125 MG ME | | | | | | | DEXAMETHASON | | | | | | | E SODIUM | | | | | | | PHOS, 1 MG | | | | | | | ME | | | | | | | INJECTION, | | | | | | | PEGFILGRASTI | | | | | | | M 6MG ME | | | | | | | NORMAL | | | | | | | SALINE | | | | | | | SOLUTION | | | | | | | INFUS, 500 | | | | | | | ML ME | | | | | | | NORMAL | | | | | | | SALINE | | | | | | | SOLUTION | | | | | | | INFUS, 250 | | | | | | | ML ME | | | | | | | STERILE | | | | | | | WATER/SALINE | | | | | | | , 10 ML ME | | | | | | | CHEMOTHER, | | | | | | | IV PUSH,EA | | | | | | | ADD DRUG ME | | | | | | | CHEMOTHER, | | | | | | | IV INFUSION, | | | | | | | 1 HR ME | | | | | | | CHEMOTHER, | | | | | | | IV INFUSION, | | | | | | | EA HR ME | | | | | | | CHEMOTHER,NO | | | | | | | N-HORMONE | | | | | | | ANTI-NEOPL, | | | | | | | SUB-Q/IM ME | | | | | | | [...] + + + + | 08/14/ | [facility] | [facility] | Mohamud, | Diffuse large B-cell | | 2016 | Encounter | MED CTR CHEMO | Gerber Benson MD [address] | lymphoma of | | | | INFUSION [address] | [address] [place] | intra-abdominal | | | | [place], | [place] [address] | lymph nodes (HCC) | | | | [place] [address] | [phone] | | | | | [phone] | | | +--------+ + + + [...] condition with . Has return appts doc umhenrique in this encounter Plan of Treatment +--------+---------+ + + + | Date | Type | Specialty | Care Team | Description | +--------+---------+ + + + | 05/19/ | Office | Cardiology | Karen Bansal, | | | 2019 | Visit | | MD Patricia JOHNSON | | | | | | [place] | | | | | | [address] | | | | | | | [...] [place] | | | | | | [address] | | | | + + + [...] [address] | [place] [address] | [phone] | + + + + + CBC [...] | | | | | M/uL | [facility] | | | | [...] + | [facility] | [address] | [place] | [phone] | | [facility] | | [address] | | | - LABORATORY | | [...] | | | | mg/dL | [facility] | | | | | | MEDICAL | | | | | | CENTER - | | | | | | LABORATORY | | + + + + + + | eGFR if not | >60Comment: GLOMERULAR | >=60 | [facility] | | | | FILTRATION | mL/min/1.73m2 | [facility] | | | BRUNEIAN | RATE,ESTIMATED | | MEDICAL | | | | mL/min/1.52i7Zrmn than | | CENTER - | | [...] | [address] | [place] | [phone] | | [facility] | | [address] | | | - LABORATORY | | | | + + + + + Uric Acid (08/14/2016 8:16 AM PST) + +-------+ + + + | Component | Value | Ref Range | Performed | Pathologist | | | | | At | Signature | + +-------+ + + + | Uric Acid | 4.5 | 2.6 - 7.2 mg/dL | [facility] [...] + | [facility] | [address] | [place] | [phone] | | [facility] | | [address] | | | - LABORATORY | | | | + + + + + Lactate Dehydrogenase (08/14/2016 8:16 AM PST) + +-------+ + + + | Component | Value | Ref Range | Performed | Pathologist | | | | | At | Signature | + +-------+ + + + | LDH TOTAL | 154 | 91 - 180 U/L | [facility] [...] [address] | [place] | [phone] | | [facility] | | [address] | | | - LABORATORY | | [...] | | | | | Care, Starting Sun08/14/16 at | | | | | [...]
--- OUTSIDE RECORDS SUMMARY | ~2020-01-25 | XMS | Encounter Summary ---
Demographics + + + | Address | [address] | | | [place] [address] | + + + | Home Phone [...] [place] | | | | | [address] | | + + + + + Care Team Providers + +------+ + | Care Restaurant Front Manager Name | Role | Phone | [...] antineoplast | MD [address] | [address] | | | | | ic | [address] | [place], | | | | | chemotherapy | [place], | [place] [address] | | | | | Diffuse | [place] [address] | Phone: | | | | | large b-cell | Phone: | [phone] | | | | | lymphoma, | [phone] | Fax: | | | | | intra-abdomi | Fax: | [phone] | | | | | nal lymph | [phone] | | | | | | nodes (HCC) | | | | | | | Procedures | | | | | | | [place] MED NUTR | | | | | [...] [address] | | | | | | [address] [place], | | | | | | [place] [address] | | | | | | [phone] | | | +--------+ + + + [...] [place] | | | | | | [address] | | | | | | | [...]
--- OUTSIDE RECORDS SUMMARY | ~2020-01-25 | XMS | Encounter Summary ---
Demographics + + + | Address | [address] | | | [place] [address] | + + + | Home Phone | | + + + | Preferred Language | Unknown | + + + | Marital Status | | + + + | Lutheran Affiliation | 1013 | + + + | Race | Unknown | + + + | Ethnic Group | Unknown | + + + Author + + + | Author | [facility] | | | and [place] | + + + | Organization | [facility] | | [...] [place] | | | | | [address] | | + + + + + Care Team Providers + +------+ + | Care Tool Sharpener Name | Role | Phone | + [...] | | Lymphedema | Mohamud, | [place] | | | | | of left | Joaquim Benson, | [place], | | | | | lower | MD [address] | [place] [address] | | | | | extremity | [address] | Phone: | | | | | Procedures | [place], | [phone] | | | | | [place] Abdomen | [place] [address] | Fax: | | | | | Pelvis w | Phone: | [phone] | | | | | Contrast | [phone] | | | | | | | Fax: | | | | | | | [phone] | | +--------+--------+ + + + + Reason for Visit + + + | Reason | Comments | + + + | Follow-up | | + + + Encounter Details +--------+ + + + + | Date | Type | Department | Care Team | Description | +--------+ + + + + | 02/26/ | Hospital | [facility] | Mohamud, | Lymphedema of left | | 2017 | Encounter | [facility] | Joaquim Benson MD [address] | lower extremity | | | | ONCOLOGY CLINIC [address] | [address] [place] | (Primary Dx); | | | | [place] | [place] [address] | Diffuse large B-cell | | | | [place] [address] | [phone] | lymphoma of | | | | [phone] | | intra-abdominal | | | | [...] Hematology/Oncology Progress Note [facility] D[place] Bl[place] Pt. Name/Age/: Joaquim Sanchez Jr. 66 y.o. 1950 Med. Record Number: [id number] Date of admission: 02/26/2017 Identifying Statement: Jaoquim Sanchez Jr. is a 66 y.o. male from [address] [address] with Mixed Diffuse Large B-Cell/Follicular Lymphoma. The [...] lower extremity. CT abdomen/Pelvis with contrast 2016 ([facility]). Ex tensive periaortic lymphadenopathy (1.8 cm and 2.1 cm respectively), extensive adenopathy ex tending out along the left common iliac artery and encasing the left external iliac artery ( 4.4 cm) with compromise of the left external iliac vein. 2. Open laparotomy with LEFT ileal retroperitoneal lymph node biopsy (Praveen, ESTEE) June 242015. Specimen #[id number] ([facility]); Diffuse Large [...] Abdomen/Pelvis at [facility] on September 12, 2016; Positive Response when [...] (PRIMA protocol). 14. Repeat CT scan at [facility] [place] on December 01, [address] able [...] is notable for the fact that Rios's disaster recovery specialist prescribed Sinemet 10/ 100 for his restless [...] n the nails being extracted by his disaster recovery specialist and these are growing back slowly. Headaches have resolved. Decreased visual acuity has resolved. Chest pain or palpitations and dyspne a on exertion have resolved. 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 Clinica l exam is notable for stable left lower extremity lymphedema. Rios is working with Nemesio at [facility] physical therapy who is administering manual [...] 2006 , Vol. 47, No. 6, pp 9752-8831. In the first article, an observational study [...] this chart may have been created with V[employer]lio voice recognition software. Occasi onal wrong-word or [...] | | | | | [place] | | | | | | [id number] | | | | | | | [...]
--- OUTSIDE RECORDS SUMMARY | ~2020-01-25 | XMS | Encounter Summary ---
Demographics + + + | Address | [address] | | | [place] [address] | + + + | Home Phone [...] [place] | | | | | [address] | | + + + + + Care Team Providers + +------+ + | Care Pigskin Trimmer Name | Role | Phone | + [...] + + | 08/28/ | Office | [facility] | Mohamud, | Lymphedema of left | | 2016 | Visit | MED CNT ONCOLOGY | Gerber Benson MD [address] | lower extremity | | | | THERAPY [address] | [address] [place] | (Primary Dx) | | | | [place], | [place] [address] | | | | | [place] [address] | [phone] | | | | | [phone] | | | | | | | [...] encounter Progress Notes Olivia Portillo OT - 08/28/2016 1:07 PM PST [facility] CTR THERAPY OT OP [address] [place] [address] Occupational Therapy Daily Treatment Note Date: 08/28/2016 Patient Information Patient Name: Gerber Galindo Date of : 1950 Age: 66 y.o. History Encounter Diagnoses Code Name Primary? I89.0 Lymphedema of left lower extremity Yes Date of Onset: 2016 Referring Provider: Gerber Mallory MD Rehab Precautions Office Visit from 08/24/2016 in [facility] CTR THERAPY OT OP Rehab Precautions Precautions None Rehab Learning Style Office Visit from 08/24/2016 in [facility] CTR THERAPY OT OP [...] | | | | | [place] | | | | | | [address] | | | | | | | | +--------+---------+ + + + documented as of this encounter Visit Diagnoses + + | Diagnosis | + + | Lymphedema of left lower extremity - Primary | + + documented in this encounter
--- OUTSIDE RECORDS SUMMARY | ~2020-01-25 | XMS | Encounter Summary ---
Demographics + + + | Address | [address] | | | [place] [address] | + + + | Home Phone [...] [place] | | | | | [address] | | + + + + + Care Team Providers + +------+ + | Care Storeroom Clerk Name | Role | Phone | [...] | | ONCOLOGY CLINIC [address] | [address] [facility] | | | | | [address] [place] | [place] [address] | | | | | [place] [address] | [phone] | | | | | [phone] | | | +--------+ + + + [...] [place] | | | | | | [address] | | | | | | | | +--------+---------+ + + + documented as of this encounter Visit Diagnoses Not on filedocumented in this encounter"
--- OUTSIDE RECORDS SUMMARY | ~2020-01-25 | XMS | Encounter Summary ---
Demographics + + + | Address | [address] | | | [place] [address] | + + + | Home Phone [...] [place] | | | | | [address] | | + + + + + Care Team Providers + +------+ + | Care Riding Teacher Name | Role | Phone | + +------+ + PCP | Unavailable | + +------+ + Encounter Details +--------+ + + + + | Date | Type | Department | Care Team | Description | +--------+ + + + + | 02/26/ | Hospital | [facility] | Zaheer Martins MD | NSTEMI (non-ST | | 2014 - | Encounter | MEDICAL CENTER | [address] | elevated myocardial | | | | CLINICAL DECISION | [place] [address] | infarction) (HCC); | | 02/27/ | | [address] | [phone] | Chest pain, | | 2013 | | [place], [place] | | unspecified; CPAP | | | | [address] | | (continuous positive | | | | [phone] | | airway pressure) | | | [...] Summaries by Charo Guerrero MD at 02/27/14 0673 Author: Charo Guerrero MD Service: Hospitalist Author Type: Physician Filed: 02/27/14 1413 Date of Service: 02/27/14 1403 Status: Signed Congressional Aide: Charo Guerrero MD (Physician) [facility] Service: Hospitalist Discharge Summary Date of Admission: [...] past 3-4 days. He was seen at [facility] and his troponin w as 0.234 hence the transfer to [facility]. HOSPITAL COURSE: NSTEMI s/p cath by Dr. Gibbs. Pt had stent placed, cath report pending. Cont plavix for a year and ASA daily indefinitely. Ff-up with Dr. Gibbs or quantity surveyor in [place]. Advised re weight loss and exercise. Pt [...] Component Value Units Date/Time Basic metabolic panel [[id number]] Collected:02/27/14539 Specimen Information:Blood Updated:02/27/14720 SODIUM 137 mmol/L POTASSIUM 4.2 mmol/L CHLORIDE 105 mmol/L CO2 27 mmol/L ANION GAP AGAP 9 mmol/L GLUCOSE 98 mg/dL BUN 16 mg/dL CREATININE 0.96 mg/dL BUN/CREAT 17 CALCIUM 9.3 mg/dL EGFR >60 mL/min/1.73m2 Lipid panel [[id number]] (Abnormal) Collected:02/27/14539 Specimen Information:Blood Updated:02/27/14720 CHOLESTEROL 150 mg/dL Triglycerides 182 (H) mg/dL HDL CHOL 34 (L) mg/dL LDL CALC 80 mg/dL Magnesium [[id number]] Collected:02/27/14539 Specimen Information:Blood Updated:02/27/14720 MAGNESIUM 2.1 mg/dL Phosphorus [[id number]] Collected:02/27/14539 Specimen Information:Blood Updated:02/27/14720 PHOSPHORUS 3.6 mg/dL CBC w/auto diff (reflex to manual) [[id number]] (Abnormal) Collected:02/27/14539 Specimen Information:Blood Updated:02/27/14657 WBC 4.2 [...] ABS 0.0 K/uL MORPHOLOGY POC ACT, arterial [[id number]] (Abnormal) Collected:02/26/14 2249 POC ACT 198 (H) seconds Updated:02/26/14 2303 CK MB [[id number]] (Abnormal) Collected:02/26/14 1725 MMB 5.4 (H) ng/mL Updated:02/26/14 1853 CK-MB Index 2.4 CPK [[id number]] Collected:02/26/14 172 Specimen Information:Blood Updated:02/26/14 1853 CPK 228 U/L Troponin I [[id number]] (Abnormal) Collected:02/26/14 1725 Specimen Information:Blood Updated:02/26/14 1853 TROPONIN I 1.05 (HH) ng/mL Troponin I [[id number]] (Abnormal) Collected:02/26/14 1151 Specimen Information:Blood Updated:02/26/14 1238 TROPONIN I 0.855 (HH) ng/mL CK MB [[id number]] (Abnormal) Collected:02/26/14 1151 MMB 5.9 (H) ng/mL Updated:02/26/14 1238 CK-MB Index 2.5 CPK [[id number]] Collected:02/26/14 1151 Specimen Information:Blood Updated:02/26/14 1238 CPK 239 U/L Troponin I [[id number]] (Abnormal) Collected:02/26/14 0956 Specimen Information:Blood Updated:02/26/14 1050 TROPONIN I 0.788 (HH) ng/mL CPK [[id number]] Collected:02/26/14 09 Specimen Information:Blood Updated:02/26/14 1050 CPK 257 U/L CK MB [[id number]] (Abnormal) Collected:02/26/14 0956 Specimen Information:Blood Updated:02/26/14 1050 MMB 5.3 (H) ng/mL CK-MB Index 2.1 Results No Results found for the last 72 hours. Disposition: home Condition: stable and improved Code Status: Full Code Discharge Instructions Basic metabolic panel Standing Status: Future Standing Exp. Date: 02/27/15 CBC w/manual diff Standing Status: Future Standing Exp. 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 You may get these medications from any [...] Notes by Dawson Gibbs MD at 02/27/14 0812 Author: Dawson Gibbs MD Service: Cardiology Author Type: Physician Filed: 03/01/14 2158 Date of Service: 02/27/1446 Status: Signed Congressional Aide: Dawson Gibbs MD (Physician) Related Notes: Original Note by Dawson Gibbs MD (Physician) filed at 02/27/14 0851 [facility] Service: Cardiology/[facility] Progress Note RE: Joaquim Sanchez [...] happy to [facility]; but the fact he lives in [place], I gave him also the option to [...] 02/26/141623 Date of Service: 02/26/141623 Status: Signed Congressional Aide: ZANE Cesar (Massage Therapist) 02/26/14 1623 Massage Therapy Interventions Locations Back;Neck;Shoulder Massage Therapy Technique Effleurage;Petrissage;Japanese massage;Trigger point Response to treatment Decreased pain;Decreased muscle tension Goals Short Term Goal #1 Decreased muscle tension;Decreased pain;Increase comfort;Increased relax ation onver christopher Transaction, Provider Unknown - 02/26/2014 11:16 AM PDT Progress Notes by Joi Gonzalez RPH at 02/26/14 1116 Author: Joi Gonzalez RPH Service: (none) Author Type: Pharmacist Filed: 02/26/14 1116 Date of Service: 02/26/14 1116 Status: Signed Congressional Aide: Joi Gonzalez RPH (Pharmacist) Renal Dosing Monitoring: [...] Author: LOR Ron Service: (none) Author Type: Monument Stonecutter Filed: 02/26/14 1031 Date of Service: 02/26/14 1028 Status: Signed Congressional Aide: LOR Ron (Monument Stonecutter) 02/26/14 1025 Discharge Planning Evaluation Admitting Diagnosis NStemi Readmission No Living Arrangements Spouse/significant other (Mara Mejiaesell [phone]) Type of Residence Private residence House type House 2 story Steps to enter 2 Independent with ADL's Yes Independent with Mobility Yes Home Care Services No Mental Status Oriented Resources Transportation issues Yes Prescription Plan Yes Name of Pharmacy [facility] in [place] Previous home health equipment No Vascular access device No Ostomy/Drains/Appliances No Anticipated Disposition Facility Type Other (Comment) (Return Home) Met with: patient and his and discussed discharge planning, Pt is a 63 y.o., male who lives in [place]. Patient's PCP is: HODAN CHACKO Patient's insurance: [...] | | | | | [facility] [facility] | | | | | | [address] | | | | | | | [...] + + | Historically converted procedure from [facility] environment | EXTERNAL LAB | + [...] | | | | | [place] [address] | | | | + + + + + + | Red Blood | 4.33Comment: Testing | 4.20 - 5.70 | EXTERNAL | | | Cells | performed at [facility], [address] | M/uL | LAB | | | Counted | [address], | | | | | | [place] [address] | | | | + + + + + + | Hemoglobin | 12.5 (L)Comment: Testing | 13.2 - 17.0 | EXTERNAL | | | | performed at [facility], [address] | g/dL | LAB | | | | [address], | | | | | | [place] [address] | | | | + + + + + + | Hematocrit, | 37.3 (L)Comment: Testing | 39.0 - 50.0 % | EXTERNAL | | | POC | performed at [facility], [address] | | LAB | | | | [address], | | | | | | [place] [address] | | | | + + + + + + | MCV | 86.1Comment: Testing | 80.0 - 100.0 fl | EXTERNAL | | | | performed at [facility], [address] | | LAB | | | | [address], | | | | | | [place] [address] | | | | + + + + + + | MCH | 28.9Comment: Testing | 27.0 - 34.0 pg | EXTERNAL | | | | performed at [facility], [address] | | LAB | | | | [address], | | | | | | [place] [address] | | | | + + + + + + | MCHC | 33.5Comment: Testing | 32.0 - 35.5 | EXTERNAL | | | | performed at [facility], [address] | g/dL | LAB | | | | [address], | | | | | | [place] [address] | | | | + + + + + + | RDW-CV | 47.7Comment: Testing | 37 - 53 fl | EXTERNAL | | | | performed at [facility], [address] | | LAB | | | | [address], | | | | | | [place] [address] | | | | + + + + + + | Platelet | 123 (L)Comment: Testing | 150 - 400 K/uL | EXTERNAL | | | Count | performed at [facility], [address] | | LAB | | | Plasma | [address], | | | | | | [place] [address] | | | | + + + + + + | MPV | 8.7Comment: Testing | fl | EXTERNAL | | | | performed at [facility], [address] | | LAB | | | | [address], | | | | | | [place] [address] | | | | + + + + + + | Differentia | AUTOMATEDComment: | | EXTERNAL | | | l Type | Testing performed at | | LAB | | | | [facility], [address] | | | | | | [place] | | | | | | [address] | | | | + + + + + + | % Segmented | 59.9Comment: Testing | % | EXTERNAL | | | | performed at [facility], [address] | | LAB | | | Neutrophils | [address], | | | | | | [place] [address] | | | | + + + + + + | % | 30.6Comment: Testing | % | EXTERNAL | | | Lymphocytes | performed at [facility], [address] | | LAB | | | | [address], | | | | | | [place], [place] [address] | | | | + + + + + + | % Monocytes | 7.2Comment: Testing | % | EXTERNAL | | | | performed at [facility], [address] | | LAB | | | | [address], | | | | | | [place], [place] [address] | | | | + + + + + + | % | 1.9Comment: Testing | % | EXTERNAL | | | Eosinophils | performed at [facility], [address] | | LAB | | | | [address], | | | | | | [place] [address] | | | | + + + + + + | % Basophils | 0.4Comment: Testing | % | EXTERNAL | | | | performed at [facility], [address] | | LAB | | | | [address], | | | | | | [place] [address] | | | | + + + + + + | Absolute | 2.5Comment: Testing | 1.9 - 7.4 K/uL | EXTERNAL | | | Segmented | performed at [facility], [address] | | LAB | | | Neutrophils | [address], | | | | | | [place] [address] | | | | + + + + + + | Absolute | 1.3Comment: Testing | 1.0 - 3.9 K/uL | EXTERNAL | | | Lymphocytes | performed at [facility], [address] | | LAB | | | | [address], | | | | | | [place] [address] | | | | + + + + + + | Absolute | 0.3Comment: Testing | 0 - 0.8 K/uL | EXTERNAL | | | Monocytes | performed at [facility], [address] | | LAB | | | | [address], | | | | | | [place] [address] | | | | + + + + + + | Absolute | 0.1Comment: Testing | 0 - 0.5 K/uL | EXTERNAL | | | Eosinophils | performed at [facility], [address] | | LAB | | | | [address], | | | | | | [place] [address] | | | | + + + + + + | Absolute | 0.0Comment: Testing | 0 - 0.1 K/uL | EXTERNAL | | | Basophils | performed at [facility], [address] | | LAB | | | [address], | | | | | | [place] [address] | | | | + + + + + + | RBC | Comment: 1+ | | EXTERNAL | | | Morphology | AnisocytosisTesting | | LAB | | | | performed at [facility], [address] | | | | | | [address], | | | | | | [place] [address] | | | | + + + [...] EXTERNAL | | | | performed at [facility], [address] | | LAB | | | | [address], | | | | | | [place] [address] | | | | + + + [...] EXTERNAL | | | | performed at [facility], [address] | | LAB | | | | [address], | | | | | | [place] [address] | | | | + + + [...] | | | | | [place] [address] | | | | + + + + + + | Triglycerid | 182 (H)Comment: Testing | mg/dL | EXTERNAL | | | es | performed at [facility], [address] | | LAB | | | | [address], | | | | | | [place] [address] | | | | + + + + + + | HDL | 34 (L)Comment: Testing | mg/dL | EXTERNAL | | | | performed at [facility], [address] | | LAB | | | | [address], | | | | | | [place] [address] | | | | + + + + + + | LDL, | 80Comment: Testing | mg/dL | EXTERNAL | | | Calculated | performed at [facility], [address] | | LAB | | | | [address], | | | | | | [place] [address] | | | | + + + [...] | | | | | [place] [address] | | | | + + + + + + | K | 4.2Comment: Testing | 3.5 - 4.9 | EXTERNAL | | | | performed at [facility], [address] | mmol/L | LAB | | | | [address], | | | | | | [place] [address] | | | | + + + + + + | Cl | 105Comment: Testing | 99 - 109 mmol/L | EXTERNAL | | | | performed at [facility], [address] | | LAB | | | | [address], | | | | | | [place] [address] | | | | + + + + + + | CO2 | 27Comment: Testing | 23 - 32 mmol/L | EXTERNAL | | | | performed at [facility], [address] | | LAB | | | | [address], | | | | | | [place] [address] | | | | + + + + + + | Anion Gap | 9Comment: Testing | 5 - 20 mmol/L | EXTERNAL | | | | performed at [facility], [address] | | LAB | | | | [address], | | | | | | [place] [address] | | | | + + + + + + | Glucose, | 98Comment: Testing | 65 - 99 mg/dL | EXTERNAL | | | Fasting | performed at [facility], [address] | | LAB | | | | [address], | | | | | | [place] [address] | | | | + + + + + + | BUN | 16Comment: Testing | 8 - 25 mg/dL | EXTERNAL | | | | performed at [facility], [address] | | LAB | | | | [address], | | | | | | [place] [address] | | | | + + + + + + | Creatinine | 0.96Comment: Testing | 0.70 - 1.30 | EXTERNAL | | | | performed at [facility], [address] | mg/dL | LAB | | | | [address], | | | | | | [place] [address] | | | | + + + + + + | BUN/Creatin | 17Comment: Testing | | EXTERNAL | | | ine Ratio | performed at [facility], [address] | | LAB | | | | [address], | | | | | | [place] [address] | | | | + + + + + + | Calcium | 9.3Comment: Testing | 8.5 - 10.2 | EXTERNAL | | | | performed at [facility], [address] | mg/dL | LAB | | | | [address], | | | | | | [place] [address] | | | | + + + [...] W | | | | | | [address], | | | | | | [place] [address] | | | | + + + [...] + + | Historically converted procedure from [facility] environment | EXTERNAL LAB | + [...] | | | Clotting | performed at [facility];[address] | seconds | LAB | | | time, POC | [address];[place], [place] | | | | | | [address] | | | | + + + [...] EXTERNAL | | | | performed at [facility] | | LAB | | | | [facility];[place], [place] | | | | | | [address] | | | | + + + [...] | | | | | | ACUTE PR RESULT READ | | | | | | BACK BY:LUISITO Riley ON 3OP | | | | | | AT 1852 BY RICO | | | | | | [id number] performed | | | | | | at [facility];[address] [place] [address] | | | | | | [facility];[place] [address] | | | | + + + [...] EXTERNAL | | | | performed at [facility];[address] | | LAB | | | | [address];[place], [place] | | | | | | [address] | | | | + + + [...] 86.95 ml D-E Excursion: 2.38 cm E-F [place]: 0.04 | | | m/s IVC diameter: [...] TV A Damien: 0.51 m/s TV Dec [place]: | | | 3.41 m/s2 TV Dec Time: 242.39 ms TV E Damien: 0.82 m/s TV | | | E/A Ratio: 1.61 Orchestrator: Authenticated by: Dawson | | | Sai [...] (A-L): 21.06 | | ml/m2LAAs A2C: 18.64 vm3RHPAU A-L A2C: 64.23 mlLALs A2C: 4.59 cmLAAs A4C: 15.59 | | hr9HFMQQ A-L A4C: 39.58 mlLALs A4C: 5.21 cmAo Diam: 4.49 cmAV Cusp: 2.72 cmLA | | Diam: 4.65 cmLA/Ao: 1.03%FS: 33.35 %EDV(Teich): 141.36 mlEF(Teich): 61.50 | | %ESV(Teich): 54.41 mlIVSd: 1.30 cmIVSs: 2.02 cmLVIDd: 5.40 cmLVIDs: 3.59 | | cmLVPWd: 1.16 cmLVPWs: 1.66 cmSV(Teich): 86.95 mlD-E Excursion: 2.38 cmE-F | | [place]: 0.04 m/sIVC diameter: 2.14 cmIVC collapse: 0.67 cmIVC % collapse: 66.27 | | %HR: 55.57 BPMAV maxP.39 mmHgAV meanP.27 mmHgAV Vmax: 1.16 m/Montrell Vmean: | | 0.67 m/Montrell VTI: 25.74 cmAVA Vmax: 3.59 cm2AVA (VTI): 3.61 ul3QLCQ Dopp: 1.99 | | l/[id number] Dopp: 5.09 l/minHR: 54.70 BPMLVOT maxP.68 mmHgLVOT [...] A Damien: 0.51 m/sTV | | Dec [place]: 3.41 m/s2TV Dec Time: 242.39 msTV E Damien: 0.82 m/sTV E/A Ratio: 1.61 | | Orchestrator: ASAuthenticated by: Dawson Gibbs [facility] Date/Time: 02-26-2014 14:43:32 | | IMPRESSION: 1. [...] | |D-E Excursion: 2.38 cm | |E-F [place]: 0.04 m/s | |IVC diameter: 2.14 cm [...] A Damien: 0.51 m/s | |TV Dec [place]: 3.41 m/s2 | |TV Dec Time: 242.39 ms | |TV E Damien: 0.82 m/s | |TV E/A Ratio: 1.61 | | | |Orchestrator: | |Authenticated by: Dawson Gibbs MD | [...] EXTERNAL | | | | performed at [facility] | | LAB | | | | [facility];[place], [place] | | | | | | [address] | | | | + + + [...] | | | | | | ACUTE PR RESULT READ | | | | | | BACK BY:CORINA Fofana AT | | | | | | 1235 BY AETesting | | | | | | performed at [facility];[address] | | | | | | [facility];[place] | | | | | | [address] | | | | + + + [...] EXTERNAL | | | | performed at [facility];[address] | | LAB | | | | [address];[place], [place] | | | | | | [address] | | | | + + + [...] | | patient was brought to the incinerator plant laborer in the fasting state. He was | | | prepped and draped in the usual sterile fashion for radial artery | | | approach. The radial artery was easily accessed with modified | | | Seldinger approach and a 5-Bruneian glide sheath was placed. A | | | 6-Bruneian JL-4 catheter was advanced under fluoroscopic guidance [...] patient was brought to | | the incinerator plant laborer in the fasting state. He was prepped and draped in the usual sterile | | fashion for radial artery approach. The radial artery was easily accessed with modified | | Seldinger approach and a 5-Bruneian glide sheath was placed. A 6-Bruneian JL-4 catheter was | | advanced under [...] EXTERNAL | | | | performed at [facility];[address] | | LAB | | | | [address];[place] | | | | | | [address] | | | | + + + [...] | | | | | | ACUTE PR CALLED TO | | | | | | AGUSTINA Goyal ON 3OP AT | | | | | | 1050 BY TRREAD BACK | | | | | | RESULTS VERIFIEDTesting | | | | | | performed at [facility] | | | | | | [facility];[place], [place] | | | | | | [address] | | | | + + + [...] EXTERNAL | | | | performed at [facility];[address] | | LAB | | | | [facility];[place], [place] | | | | | | [address] | | | | + + + [...] (500), | | | | | | field map editor MARTINA PALMER (8) | | | [...]
--- OUTSIDE RECORDS SUMMARY | ~2020-01-25 | XMS | Encounter Summary ---
Demographics + + + | Address | [address] | | | [place] [address] | + + + | Home Phone [...] [place] | | | | | [address] | | + + + + + Care Team Providers + +------+ + | Care Harvest Worker Name | Role | Phone | [...] + + | 10/05/ | Hospital | [facility] | Mohamud, | Diffuse large B-cell | | 2017 | Encounter | [facility] | Gerber Benson MD [address] | lymphoma of | | | | ONCOLOGY CLINIC [address] | [address] [place] | intra-abdominal | | | | [address] [place] | [place] [address] | lymph nodes (HCC) | | | | [place] [address] | [phone] | (Primary Dx); | | | | [phone] | | Lymphedema of left | | | | | Yang Townsend MD | lower extremity; | | | | | [address] | Antineoplastic | | | | | [address] [place] [facility], | 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 Hematology-Oncology Progress Note [facility] Pt. Name/Age/: Gerber Galindo 66 y.o. 1950 CSN: [id number] Date of service: 10/05/2016 Provider: Yang Townsend [...] for follow up with Dr. Townsend (Dr. Mallory out) and labs. My chart: Active. Medications: Current [...] this chart may have been created with [employer] voice recognition software. Occasi onal wrong-word or [...] | | | | | | [place], [place] | | | | | | [id number] | | | | | | | [...] | Segmented | | K/uL | [facility] | | | Neutrophils | | | [...] + | [facility] | [address] | [place], [place] | [phone] | | [facility] | | [address] | | | - LABORATORY | | | | + + + + + Lactate Dehydrogenase (10/05/2016 9:13 AM PST) + +-------+ + + + | Component | Value | Ref Range | Performed | Pathologist | | | | | At | Signature | + +-------+ + + + | LDH TOTAL | 160 | 91 - 180 U/L | ANASTASIA [...] + | [facility] | [address] | [place] | [phone] | | [facility] | | [address] | | | - LABORATORY | | [...] not | >60Comment: GLOMERULAR | >=60 | [facility] | | | | FILTRATION | mL/min/1.73m2 | YUE | | | CITIZ[place] | RATE,ESTIMATED | | MEDICAL | | | | mL/min/1.11i3Pqjo than | | CENTER - | | [...] | 9.2 | 8.3 - 10.5 | [facility] | [...] + | [facility] | [address] | [place] | [phone] | | [facility] | | [address] | | | - LABORATORY | | [...] [address] | [place] | [phone] | | [facility] | | [address] | | | - LABORATORY | | [...]
--- OUTSIDE RECORDS SUMMARY | ~2020-01-25 | XMS | Encounter Summary ---
Demographics + + + | Address | [address] | | | [place] [address] | + + + | Home Phone [...] [place] | | | | | [address] | | + + + + + Care Team Providers + +------+ + | Care Consultant Teacher Name | Role | Phone | + +------+ + | Earle Chacko MD | PCP | | + +------+ + Encounter Details +--------+ + + + + | Date | Type | Department | Care Team | Description | +--------+ + + + + | 09/26/ | Hospital | [facility] | Mohamud, | Diffuse large B-cell | | 2017 | Encounter | [facility] | Joaquim Benson MD [address] | lymphoma of | | | | ONCOLOGY CLINIC [address] | [address] [place] | intra-abdominal | | | | [address] [place] | [place] [address] | lymph nodes (HCC) | | | | [place] [address] | [phone] | (Primary Dx) | | | | [phone] | | | +--------+ + + + [...] the original. Hematology/Oncology Progress Note [facility] Pt. Name/Age/: Joaquim Galindo 66 y.o. 1950 Med. Record Number: [id number] Date of admission: 09/26/2016 Identifying Statement: Joaquim Galindo is a 66 y.o. male from [address] [address] with Diffuse Large B-Cell Lymphoma. The patient [...] node biopsy (ESTEE Morton) June 242015. Specimen #[id number] ([facility] Pathology); Diffuse Large B-Cell lymph [...] 04, 2016. 10. CT Abdomen/Pelvis at [facility] on September 12, 2016; Positive Response [...] fact that Rios underwent CT scan at [facility] in [place], [place] on September 12, 2016 that demonstrated [...] adenoidectomy Inguinal hernia repair incarcerated Stent 2013 [facility] Social History Social History Marital Status: Spouse [...] 14:22 Note Time: 09/26/2016 14:14 Status: Signed Cna Per Diem: Olivia Portillo OT (Occupational Therapist) Expand All Collapse All [facility] THERAPY OT OP [address] [place] [address] Occupational Therapy Discharge Note Date: 09/26/2016 Patient [...] Pain is Experienced: 26-50% DISCHARGE NOTE: SUBJECTIVE: Jaoquim Galindo has completed 4 visits for treatment [...] of an appropriate compression garm ents for intermission coordinator management of edema. Goal 3 Status: Goal met Plan Date of Onset: 2016Start of Care Date: 08/24/2016 Requested # of Visits: 8 visits 1x/week for 8 weeks Certification From: 08/24/2016Certification To: 10/24/2016 Treatment Plan/Interventions 16395 - OT [id number] - Therapeutic [id number] - Therapeutic [id number] - Manu al Therapy Patient and/or family [...] concerns at this time. PLAN: Discharge to [facility]. Electronically signed by: Olivia Portillo OT, 09/26/2016 14:19 Patient Name: Joaquim Galindo/: 1950/ Palliative Care: Patient's Medications New Prescriptions [...] this chart may have been created with Vostu voice recognition software. Occasi onal wrong-word or [...] [place] | | | | | | [id number] | | | | | | | | +--------+---------+ + + + documented as of this encounter Visit Diagnoses + + | Diagnosis | + + | 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
--- OUTSIDE RECORDS SUMMARY | ~2020-01-25 | XMS | Encounter Summary ---
Demographics + + + | Address | [address] | | | [place] [address] | + + + | Home Phone [...] [place] | | | | | [address] | | + + + + + Care Team Providers + +------+ + | Care Coat Repair Inspector Name | Role | Phone | + +------+ + | Earle Chacko MD | PCP | | + +------+ + Encounter Details +--------+ + + + + | Date | Type | Department | Care Team | Description | +--------+ + + + + | 07/21/ | Hospital | [facility] | Mohamud, | Diffuse large B-cell | | 2016 | Encounter | [facility] | Gerber Benson MD [address] | lymphoma of | | | | ONCOLOGY CLINIC [address] | [address] [place] | intra-abdominal | | | | [address] [place] | [place] [address] | lymph nodes (HCC) | | | | [place] [address] | [phone] | (Primary Dx) | | | | [phone] | | | | | | | Olga Pepe, | | | | | | PharmD [address] | | | | | | ST [place], [place] | | | | | | [address] | | | | | | | [...] original. Clinical Oncology Pharmacy Services Progress Note [facility] Pt. Name/Age/: Gerber Galindo 66 y.o. 1950 CSN: [id number] Date of service: 07/21/2016 Provider: GEMINI AsherD Identifying Statement: Gerber Galindo is a 66 y.o. male from [address] [address], The encounter diagnosis was Diffuse large B-cell [...] for comparison only - no result from [facility]. Vas Lower Extremity Venous Left 07/17/2016 External films for comparison only - no result from [facility]. Xr Chest 2 Vw 07/17/2016 External films for comparison only - no result from [facility]. 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
--- OUTSIDE RECORDS SUMMARY | ~2020-01-25 | XMS | Encounter Summary ---
Demographics + + + | Address | [address] | | | [place] [address] | + + + | Home Phone [...] [place] | | | | | [address] | | + + + + + Care Team Providers + +------+ + | Care Electroneurodiagnostic Technologist Name | Role | Phone | + [...] large b-cell | Gerber Benson, | [address] [place] | | | | | lymphoma, | MD [address] | [place], | | | | | intra-abdomi | [address] | [place] [address] | | | | | nal lymph | [place], | Phone: | | | | | nodes (HCC) | [place] [address] | [phone] | | | | | Procedures | Phone: | Fax: | | | | | [place] | [phone] | [phone] | | | | | RITUXIMAB | Fax: | | | | | | INJECTION, | [phone] | | | | | | 100 [...] + + + + | 01/01/ | [facility] | [facility] | Mohamud, | Diffuse large B-cell | | 2017 | Encounter | MED CTR CHEMO | Gerber Benson MD [address] | lymphoma of | | | | INFUSION [address] | [address] [place] | intra-abdominal | | | | [place], | [place] [address] | lymph nodes (HCC) | | | | [place] [address] | [phone] | | | | | [phone] | | | +--------+ + + + [...] | | | | | [place] | | | | | | [address] | | | | | | | [...] [address] | [place] | [phone] | | [facility] | | [address] | | | - LABORATORY | | [...] 14 | 7 - 18 mg/dL | [facility] | | | | | | [facility] | | | | | | MEDICAL | | | | | | CENTER - | | | | | | LABORATORY | | + + + + + + | Creatinine | 0.89 | 0.60 - 1.30 | [place] | | | | | mg/dL | [facility] | | | | | | MEDICAL | | | | | | CENTER - | | | | | | LABORATORY | | + + + + + + | eGFR if not | >60Comment: GLOMERULAR | >=60 | [place] | | | | FILTRATION | mL/min/1.73m2 | [facility] | | | [place] | RATE,ESTIMATED | | MEDICAL | | | | mL/min/1.06p7Netd than | | CENTER - | | [...] [address] | [place] | [phone] | | [facility] | | [address] | | | - LABORATORY | | [...] [address] | [place] | [phone] | | [facility] | | [address] | | | - LABORATORY | | [...]
--- OUTSIDE RECORDS SUMMARY | ~2020-01-25 | XMS | Encounter Summary ---
Demographics + + + | Address | [address] | | | [place] [address] | + + + | Home Phone [...] [place] | | | | | [address] | | + + + + + Care Team Providers + +------+ + | Care Substation Technician Name | Role | Phone | [...] + + | 04/16/ | Refill | [facility] | Mohamud, | Medication Refill | | 2017 | | MED [facility] | Gerber Benson MD [address] | | | | | ONCOLOGY CLINIC [address] | [address] [place] | | | | | [address] [place] | [place] [address] | | | | | [place] [address] | [phone] | | | | | [phone] | | | +--------+--------+ + + + [...] [place] | | | | | | [address] | | | | | | | | +--------+---------+ + + + documented as of this encounter Visit Diagnoses + + | Diagnosis | + + | Diffuse large B-cell lymphoma of intra-abdominal lymph nodes (HCC) Other malignant | | lymphomas of intra-abdominal lymph nodes | + + documented in this encounter"
--- OUTSIDE RECORDS SUMMARY | ~2020-01-25 | XMS | Encounter Summary ---
Demographics + + + | Address | [address] | | | [place] [address] | + + + | Home Phone [...] [place] | | | | | [address] | | + + + + + Care Team Providers + +------+ + | Care Sales Department Clerk Name | Role | Phone | [...] + + | 09/14/ | Hospital | [facility] | Miguel Zuniga | Diffuse large B-cell | | 2016 | Encounter | [facility] MED[facility] | MD Gerber [address] | lymphoma of | | | | ONCOLOGY CLINIC [address] | [address] [place] | intra-abdominal | | | | [address] [place] | [place] [address] | lymph nodes (HCC) | | | | [place] [address] | [phone] | (Primary Dx); | | | | [phone] | | Lymphedema of left | | [...] erent from the original. Hem-Onc Progress Note [facility] Pt. Name/Age/: Gerber Galindo 66 y.o. 1950 Med. Record Number: [id number] Date of admission: 09/14/2016 Assessment and plan: [...] Electronically signed by: Miguel Zuniga, 09/14/2016 15:10 [facility] TIME SPENT 25 MIN. > 50% AT BEDSIDE, WITH FAMILY/PATIENT IN CARE AND INWARD TOLL OPERATOR ON UNIT AND CO ORDINATION OF CARE Portions of this chart may have been created with [employer] voice recognition software. Occasi onal wrong-word or sound-alike substitutions may have occurred due to the inherent valencia itations of voice recognition software. Please read the chart carefully and recognize, using context, where these substitutions have occurred. [facility] - 09/14/2016 1:43 PM [...] | | | | | [place] [address] | | | | | | [address] | | | | | | | [...] + | [facility] | [address] | [place] | [phone] | | [facility] | | [address] | | | - LABORATORY | | [...] + | [facility] | [address] | [place] | [phone] | | [facility] | | [address] | | | - LABORATORY | | [...] | mL/min/1.73m2 | YUE | | | [place] CITIZEN | RATE,ESTIMATED | | MEDICAL | | | | mL/min/1.05h3Yqrs than | | CENTER - | | [...] + | [facility] | [address] | [place] | [phone] | | [facility] | | [address] | | | - LABORATORY | | [...] ST. | [address] | [place] | [phone] | | [facility] | | [address] | | | - LABORATORY | | [...]
--- OUTSIDE RECORDS SUMMARY | ~2020-01-25 | XMS | Encounter Summary ---
Demographics + + + | Address | [address] | | | [place] [address] | + + + | Home Phone [...] [place] | | | | | [address] | | + + + + + Care Team Providers + +------+ + | Care Post Tronic Machine Operator Name | Role | Phone [...] large b-cell | Gerber Benson, | [address] [place] | | | | | lymphoma, | MD [address] | [place], | | | | | intra-abdomi | [address] | [place] [address] | | | | | nal lymph | [place], | Phone: | | | | | nodes (HCC) | [place] [address] | [phone] | | | | | Procedures | Phone: | Fax: | | | | | [place] | [phone] | [phone] | | | | | INJECTION, | Fax: | | | | | | FAMOTIDINE, | [phone] | | | | | | [address] | | | | | | | R[place]AB | | | | | | | INJECTION, | | | | | | | [address] | | | | | | | LORAZEPAM | | | | | | | INJECTION, 2 | | | | | | | MG CT | | | | | | | MEPERIDINE | | | | | | | HYDROCHL | | | | | | | /[address] | | | | | | | DIPHENHYDRAM | | | | | | | INE HCL | | | | | | | INJECTIO, 50 | | | | | | | MG CT | | | | | | | METHYLPREDNI | | | | | | | SOLONE | | | | | | | INJECTION, | | | | | | | [address] | | | | | | | DEXAMETHASON | | | | | | | E SODIUM | | | | | | | PHOS, 1 MG | | | | | | | CT NORMAL | | | | | | | SALINE | | | | | | | SOLUTION | | | | | | | INFUS, 500 | | | | | | | ML CT | | | | | | | NORMAL | | | | | | | SALINE | | | | | | | SOLUTION | | | | | | | INFUS, 250 | | | | | | | ML CT | | | | | | | STERILE | | | | | | | WATER/SALINE | | | | | | | , [address] | | | | | | | CHEMOTHER, | | | | | | | IV PUSH,EA | | | | | | | ADD DRUG CT | | | | | | | CHEMOTHER, | | | | | | | IV INFUSION, | | | | | | | [address] | | | | | | | CHEMOTHER, | | | | | | | IV INFUSION, | | | | | | | EA HR CT | | | | | | | CHEMOTHER,NO | | | | | | | N-HORMONE | | | | | | | ANTI-NEOPL, | | | | | | | SUB-Q/IM CT | | | | | | | [...] [place] | intra-abdominal | | | | [place], | [place] [address] | lymph nodes (HCC) | | | | [place] [address] | [phone] | | | | | [phone] | | | +--------+ + + + [...] [place] | | | | | | [address] | | | | | | | [...] + | [facility] | [address] | [place] | [phone] | | [facility] | | [address] | | | - LABORATORY | | [...] | | | FILTRATION | mL/min/1.73m2 | [facility] | | | [place] | RATE,ESTIMATED | | MEDICAL | | | | mL/min/1.42f0Lhov than | | CENTER - | | [...] | | | | | mg/dL | [facility] | | | | | | MEDICAL [...] [address] | [place] | [phone] | | [facility] | | [address] | | | - LABORATORY | | [...] [address] | [place] | [phone] | | [facility] | | [address] | | | - LABORATORY | | [...]
--- OUTSIDE RECORDS SUMMARY | ~2020-01-25 | XMS | Encounter Summary ---
Demographics + + + | Address | [address] | | | [place] [address] | + + + | Home Phone [...] [place] | | | | | [address] | | + + + + + Care Team Providers + +------+ + | Care Wool Mixer Name | Role | Phone | + [...] large b-cell | Gerber Benson, | [address] [place] | | | | | lymphoma, | MD [address] | [place], | | | | | intra-abdomi | [address] | [place] [address] | | | | | nal lymph | [place], | Phone: | | | | | nodes (HCC) | [place] [address] | [phone] | | | | | Procedures | Phone: | Fax: | | | | | [place] | [phone] | [phone] | | | | | R[place] | Fax: | | | | | | INJECTION, | [phone] | | | | | | 100 [...] + + + + | 08/14/ | [facility] | [facility] | Mohamud, | Diffuse large B-cell | | 2016 | Encounter | MED CTR CHEMO | Gerber Benson MD [address] | lymphoma of | | | | INFUSION [address] | [address] [place] | intra-abdominal | | | | [place], | [place] [address] | lymph nodes (HCC) | | | | [place] [address] | [phone] | | | | | [phone] | | | +--------+ + + + [...] [place] | | | | | | [address] | | | | | | | [...] [place] | | | | | | [address] | | | | + + + [...] [address] | [place] [address] | [phone] | + + + + + CBC [...] | Lymphocytes | | K/uL | [facility] | | | | [...] + | [facility] | [address] | [place] | [phone] | | [facility] | | [address] | | | - LABORATORY | | [...] mL/min/1.73m2 | [facility] | | | [place] | RATE,ESTIMATED | | MEDICAL | | | | mL/min/1.31u5Ilzf than | | CENTER - | | [...] [address] | [place] | [phone] | | [facility] | | [address] | | | - LABORATORY | | [...] + | [facility] | [address] | [place] | [phone] | | [facility] | | [address] | | | - LABORATORY | | [...] [address] | [place] | [phone] | | [facility] | | [address] | | | - LABORATORY | | [...]
--- OUTSIDE RECORDS SUMMARY | ~2020-01-25 | XMS | Encounter Summary ---
Demographics + + + | Address | [address] | | | [place] [address] | + + + | Home Phone [...] [place] | | | | | [address] | | + + + + + Care Team Providers + +------+ + | Care Qualification Engineer Name | Role | Phone | + +------+ + | Earle Chakco MD | PCP | | + +------+ [...] | | ONCOLOGY CLINIC [address] | [address] [facility] | | | | | [address] | [place] [address] | | | | | [place] [address] | [phone] | | | | | [phone] | | | +--------+ + + + [...] [place] | | | | | | [address] | | | | | | | | +--------+---------+ + + + documented as of this encounter Visit Diagnoses Not on filedocumented in this encounter"
--- OUTSIDE RECORDS SUMMARY | ~2020-01-25 | XMS | Encounter Summary ---
Demographics + + + | Address | [address] | | | [place] [address] | + + + | Home Phone | | + + + | Preferred Language | Unknown | + + + | Marital Status | | + + + | Scientology Affiliation | 1013 | + + + | Race | Unknown | + + + | Ethnic Group | Unknown | + + + Author + + + | Author | [facility] | | | and [place] | + + + | Organization | [facility] | | [...] [place] | | | | | [address] | | + + + + + Care Team Providers + +------+ + | Care Baggage And Mail Agent Name | Role | Phone | [...] large b-cell | Gerber Benson, | [address] [place] | | | | | lymphoma, | MD [address] | [facility], | | | | | intra-abdomi | [address] | [place] [address] | | | | | nal lymph | [place], | Phone: | | | | | nodes (HCC) | [place] [address] | [phone] | | | | | Procedures | Phone: | Fax: | | | | | [place] | [phone] | [phone] | | | | | INJECTION, | Fax: | | | | | | FAMOTIDINE, | [phone] | | | | | | 20 [...] [place] | intra-abdominal | | | | [place] [facility], | [place] [address] | lymph nodes (HCC) | | | | [place] [address] | [phone] | | | | | [phone] | | | +--------+ + + + [...] [place] | | | | | | [id number] | | | | | | | [...] + | [facility] | [address] | [place] | [phone] | | [facility] | | [address] | | | - LABORATORY | | [...] | | | | mmol/L | [facility] | | | | | | MEDICAL [...] | mL/min/1.73m2 | YUE | | | [place] | RATE,ESTIMATED | | MEDICAL | | | | mL/min/1.34k5Oigy than | | CENTER - | | [...] + | [facility] | [address] | [place] | [phone] | | [facility] | | [address] | | | - LABORATORY | | [...] ST. | [address] | [place], [place] | [phone] | | [facility] | | [address] | | | - LABORATORY | | [...]
--- OUTSIDE RECORDS SUMMARY | ~2020-01-25 | XMS | Encounter Summary ---
Demographics + + + | Address | [address] | | | [place] [address] | + + + | Home Phone [...] | [place] | | | | | [address] | | + + + + + Care Team Providers + +------+ + | Care Central Services Tech Name | Role | Phone | + +------+ + PCP | Unavailable | + +------+ + Encounter Details +--------+ + + + + | Date | Type | Department | Care Team | Description | +--------+ + + + + | 07/17/ | Hospital | [facility] | Justin Topete MD | | | 2003 | Encounter | MED CTR SLEEP | [address] | | | | | CENTER [address] | [place] | | | | | [place] | [address] | | | | | [address] | [phone] | | | | | [phone] | | | +--------+ + + + [...] [place] | | | | | | [address] | | | | | | | | +--------+---------+ + + + documented as of this encounter Visit Diagnoses Not on filedocumented in this encounter"
--- OUTSIDE RECORDS SUMMARY | ~2020-01-25 | XMS | Encounter Summary ---
Demographics + + + | Address | [address] | | | [place] [address] | + + + | Home Phone [...] [place] | | | | | [address] | | + + + + + Care Team Providers + +------+ + | Care Nurse Behavioral Health Care Name | Role | Phone | + +------+ + | Kelsey Quintanilla MD | PCP | | + +------+ + Reason for Referral Evaluate & Treat (Routine) + + + [...] | | | | [address] [address] | [place], [place] | | | | | | [place], [place] | [address] | | | | | | [address] | Phone: | | | | | | Phone: | [phone] | | | | | | [phone] | Fax: | | | | | | Fax: | [phone] | | | | | | [phone] | | + + + + + + + Reason for Visit + + + | Reason | Comments | + + + | Follow-up | | + + + Encounter Details +--------+---------+ + + + | Date | Type | Department | Care Team | Description | +--------+---------+ + + + | 10/01/ | Office | [facility] | Karen Miller, | Coronary artery | | 2020 | Visit | [facility] [place] | [address] | disease involving | | | | [address] | [place], [place] | [place] coronary | | | | [address] | [address] | artery of [place] | | | | [place] | | heart without angina | | | | [address] | | pectoris (Primary | | | | [phone] | | Dx); CPAP | | | | | | (continuous positive | | | | | | airway pressure) | | | | | | dependence; Vertigo | +--------+---------+ + + + Social History [...] + + + + | Temperature | - | - | | + + + + + | Respiratory Rate | - | - | | + [...] + + + documented in this encounter Progress Notes Karen Miller MD - 10/01/2019 10:30 AM PSTFormatting of this note might be different f rom the original. Date of visit: 10/01/2019 Primary Care Physician: Kelsey Quintanilla MD CHIEF COMPLAINT: Chief Complaint Patient presents with Follow-up HISTORY OF PRESENT ILLNESS: Gerber is 69 y.o. here for follow up visit. Has history of coronary artery disease and [place] in 2014 had PCI to mid RCA. Denies any chest pain however has been having recurrent episodes of dizziness/vertigo. Evaluated in the emergency room earlier September 2019. Has been deemed in remission from lymphoma. Still have left lower extremity edema. Activity level is limited due to chronic back, knee pain and neuropathy in the feet. In 2016 he was diagnosed with lymphoma after having left lower extremity swelling intermitt ently, has had multiple chemotherapy cycles after surgical intervention. Has obstructive lymphoid in opacity in his pelvic area obstructing the left iliac vein. No recent hospitalization. No change in weight. Past medical history, SH, FH, and medications were reviewed in the chart. Medications: Outpatient Encounter Medications as of 10/01/2019 Medication Sig Dispense Refill aspirin 81 mg EC tablet Take 81 mg by mouth Daily. atorvaSTATin (LIPITOR) 10 mg tablet Take 10 mg by mouth Daily. [DISCONTINUED] B Complex Vitamins (VITAMIN B COMPLEX PO) Take by mouth as needed. [DISCONTINUED] benzonatate (TESSALON) 100 mg capsule carvedilol (COREG) 25 mg tablet Take 37.5 mg by mouth 2 times daily (with breakfast & d inner). Taking 1.5 tabs twice daily. 2 cetirizine (ZYRTEC) 10 mg tablet Take 10 mg by mouth Daily. Cholecalciferol (VITAMIN D-3) 5000 units CAPS Take 10,000 Units by mouth Daily. clotrimazole-betamethasone (LOTRISONE) cream Apply topically Daily as needed. Cyanocobalamin (VITAMIN B-12) 3000 MCG SUBL Take 3,000 mg by mouth Daily. [DISCONTINUED] doxycycline (VIBRAMYCIN) 100 mg tablet fish oil 1,000 mg capsule Take 1,000 mg by mouth 2 times daily. gabapentin (NEURONTIN) 100 mg capsule Take 200 mg by mouth 2 times daily. 200 mg in AM, 200 mg in afternoon, also taken with 300 mg in evenings. 4 gabapentin (NEURONTIN) 300 mg capsule Take 300 mg by mouth nightly. 2 [DISCONTINUED] KRILL OIL PO Take by mouth. levothyroxine (SYNTHROID, LEVOTHROID) 50 mcg tablet 3 lisinopril (PRINIVIL, ZESTRIL) 10 mg tablet Take 10 mg by mouth Daily. [DISCONTINUED] lisinopril (PRINIVIL, ZESTRIL) 10 mg tablet Take 1 tablet by mouth Daily . meclizine (ANTIVERT) 25 mg tablet Take 25 mg by mouth every 6 hours as needed. melatonin 3 mg TABS Take 3 mg by mouth nightly as needed. metFORMIN (GLUCOPHAGE) 500 mg tablet Take 500 mg by mouth Daily. [DISCONTINUED] Multiple Vitamin (MULTIVITAMINS PO) Take by mouth. Micro plex VMz doTER RA supplement nitroglycerin (NITROSTAT) 0.[address] 1 tablet under the tongue every 5 doreen blank as needed for Chest pain. [DISCONTINUED] omeprazole (PRILOSEC) 20 mg capsule Take 20 mg by mouth every morning (b efore breakfast). pseudoePHEDrine (SUDOGEST) 30 mg tablet Take 30 mg by mouth every 8 hours as needed for Congestion. [DISCONTINUED] traMADol (ULTRAM) 50 mg tablet Take 50 mg by mouth every 6 hours as need ed. [DISCONTINUED] traZODone (DESYREL) 50 mg tablet Take 50 mg by mouth nightly. [DISCONTINUED] VITAMIN E COMPLEX PO Take by mouth. No facility-administered encounter medications on file as of 10/01/2019. Allergies Allergies Allergen Reactions Codeine "wires him up" REVIEW OF SYSTEMS: Constitutional: Mild fatigue weight has been stable. HEENT: No nosebleed, significant dizziness and tinnitus Eyes: Negative for visual disturbance, redness, or secretion. Respiratory: Negative for cough, sputum production, hemoptysis, wheezing. Cardiovascular: As HPI. Gastrointestinal: Negative for nausea, vomiting, diarrhea, abdominal pain and blood in stoo l. Genitourinary: Negative for dysuria or hematuria. Musculoskeletal: Chronic arthritic pain. Skin: Negative for rash. Neurological: Negative for dizziness. No numbness. No recent falls. No slurred speech. Hematological: No significant bruising. Psychiatric/Behavioral: No depression or anxiety. PHYSICAL EXAM Vital Signs: BP 118/66 | Pulse 59 | Ht 1.854 m (6' 1") | Wt (!) 145.2 kg (320 lb) | SpO2 93% | BMI 42.22 kg/m GENERAL APPEARANCE: Alert, oriented, cooperative, no distress, appears stated age. HEENT: Extraocular movements were intact. No jaundice. Pupiles round and reactive. NECK: No JVD, lymphadenopathy. Carotid upstrokes normal. No carotid bruit heard. CARDIAC: Regular rhythm and rate. There is normal S1 and S2. No galop. No murmur. CHEST: Normal bilateral symmetrical chest excursion.ackles or wheezing. No evidence of dull ness. ABDOMEN: Soft.No tenderness or guarding. No palpable organs. Active bowel sounds. EXTREMITIES: Lymphedema of the left lower extremity. NEURO: Alert and oriented times three with no focal deficit. Cranial nerves are grossly no rmal. SKIN: Warm and dry. No rash. Psych: Normal affect and mood. DATA 09/27/2019 WBC 2.5, hemoglobin 13.5, platelets 89, sodium 139, potassium 4.0, chloride 106, bicarb 26, BUN 17, creatinine 0.87. GFR 87, AST 18, ALT 26, alk phos 46. 02/12/2019 WBC 3.0, hemoglobin 13.2, platelets 104, sodium 138, potassium 4.1, chloride 106, bicarbona te 23, BUN 17, creatinine 0.86. AST 21, AST 27, alk phos 51. Lab Results Component Value Date/Time NA 139 07/15/2018 09:16 AM NA 136 05/20/2018 08:09 AM NA 139 03/25/2018 08:05 AM K 3.9 07/15/2018 09:16 AM K 3.9 05/20/2018 08:09 AM K 3.8 03/25/2018 08:05 AM CO2 27 07/15/2018 09:16 AM CO2 26 05/20/2018 08:09 AM CO2 26 03/25/2018 08:05 AM BUN 15 07/15/2018 09:16 AM BUN 19 (H) 05/20/2018 08:09 AM BUN 17 03/25/2018 08:05 AM CREA 0.95 07/15/2018 09:16 AM CREA 0.87 05/20/2018 08:09 AM CREA 1.00 03/25/2018 08:05 AM CALCIUM 9.6 07/15/2018 09:16 AM CALCIUM 9.4 05/20/2018 08:09 AM CALCIUM 9.8 03/25/2018 08:05 AM MG 2.1 02/27/2014 05:40 AM Lab Results Component Value Date/Time WBC 3.1 (L) 07/15/2018 09:16 AM WBC 3.1 (L) 05/20/2018 08:09 AM WBC 3.1 (L) 03/25/2018 08:05 AM HGB 13.0 (L) 07/15/2018 09:16 AM HGB 12.7 (L) 05/20/2018 08:09 AM HGB 13.5 03/25/2018 08:05 AM HCT 38.9 (L) 07/15/2018 09:16 AM HCT 36.2 (L) 05/20/2018 08:09 AM HCT 39.4 (L) 03/25/2018 08:05 AM MCV 87.0 07/15/2018 09:16 AM MCV 87.2 05/20/2018 08:09 AM MCV 87.0 03/25/2018 08:05 AM LABPLAT 123 (L) 02/27/2014 05:40 AM Lab Results Component Value Date ALT 26 07/15/2018 ALT 21 05/20/2018 CHOL 150 02/27/2014 TRIG 182 (H) 02/27/2014 HDL 34 (L) 02/27/2014 LDLEX 80 02/27/2014 GLUF 98 02/27/2014 EK09/27/2019 Reviewed from [place] showed sinus bradycardia with first-degree AV block. Left ante rior fascicular block. Nonspecific ST-T wave changes. 03/19/2019 Ordered and reviewed by myself showed sinus bradycardia, first-degree AV block. Left axis d eviation. 04/18/[address] [facility] showing normal sinus rhythm with left axis variation otherwise no rmal EKG. Echo 11/05/2016 From [place] Normal LV size with hyperdynamic systolic function, mild left ventricular hyp ertrophy, EF >70%. Mild enlarged LA, mild dilated aortic root. Normal right side pressures. February 2014 Reported with normal LV size and function, mild left ventricular hypertrophy EF 60-65%. Mil d MR. Last stress test: 03/31/2019 Reported with normal LV size and function EF 70%. Inferior fixed defect consistent with in ferolateral infarct mild hypokinesia. No ischemia. Last cath: 02/2014 2 Vessel CAD, mild LAD, subtotal RCA, stented with 3.5X 16 mm EDGARD Carotid US: AAA screening: Lower extremity US: OTHERS: ASSESSMENT & PLAN Patient is 69 y.o. with the following medical problems: 1. Coronary artery disease states post PCI to RCA, multiple episodes of atypical symptoms. 2. Mildly dilated ascending aorta. 3. Significant dizziness and tinnitus. 4. Hypertension blood pressure is controlled. 5. Chronic left lower extremity edema secondary to obstructive lymphadenopathy. 6. Obstructive sleep apnea on CPAP. 7. 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 8. Morbid obesity. Reccommodations: Reviewed the stress test findings with the patient. No reversible ischemia. We will continue medical therapy on carvedilol 3 7.5 mg twice daily. Lisinopril 10 mg p.o. daily. Continue with aspirin and statin. Will be referred for audiology to evaluate dizziness. Continue to monitor blood pressure. Continue with aspirin and statin. Discussed with the patient weight loss and lifestyle modification. Patient will follow-up in 6-7 months will report with any change in symptoms. *This report has been prepared using a voice recognition system. The report was reviewed fo r accuracy, however, sound-alike word errors, addition and/or deletions may occur. If there is any question about this report please contact me. Karen Miller MD, MPH documented in this encounter Plan of Treatment +--------+---------+ + + + | Date | Type | Specialty | Care Team | Description | +--------+---------+ + + + | 05/19/ | Office | Cardiology | Karen Miller, | | 2019 | Visit | | MD Patricia JOHNSON | | | | | | [facility] | | | | | | [id number] | | | | | | | | +--------+---------+ + + + + + +--------+ + + | Name | Type | Priori | Associated Diagnoses | Order Schedule | | | | ty | | | + + +--------+ + + | Ambulatory Referral | Outpatient | Routin | Vertigo | Ordered: 10/01/2019 | | to [facility] | Referral | e | | | + + +--------+ + + documented as of this encounter Visit Diagnoses + + | Diagnosis | + + | Coronary artery disease involving [place] coronary artery of [place] heart without | | angina pectoris - Primary | + + | CPAP (continuous positive airway pressure) dependence Dependence on other enabling | | machine | + + | Vertigo Dizziness and giddiness | + + documented in this encounter
--- OUTSIDE RECORDS SUMMARY | ~2020-01-25 | XMS | Encounter Summary ---
Demographics + + + | Address | [address] | | | [place] [address] | + + + | Home Phone [...] [place] | | | | | [address] | | + + + + + Care Team Providers + +------+ + | Care Title Closer Name | Role | Phone | + [...] large b-cell | Gerber Benson, | [address] | | | | | lymphoma, | MD [address] | [place], | | | | | intra-abdomi | [address] | [place] [address] | | | | | nal lymph | [place], | Phone: | | | | | nodes (HCC) | [place] [address] | [phone] | | | | | Procedures | Phone: | Fax: | | | | | [place] | [phone] | [phone] | | | | | INJECTION, | Fax: | | | | | | FAMOTIDINE, | [phone] | | | | | | [address] [...] [place] | intra-abdominal | | | | [address] [place], | [place] [address] | lymph nodes (HCC); | | | | [place] [address] | [phone] | Lymphedema of left | | | | [phone] | | lower extremity | +--------+ + [...] | | | | | [place] | | | | | | [address] | | | | | | | [...] + | [facility] | [address] | [place] | [phone] | | [facility] | | [address] | | | - LABORATORY | | [...] mL/min/1.73m2 | [facility] | | | STATELESS | RATE,ESTIMATED | | MEDICAL | | | | mL/min/1.44o5Notx than | | CENTER - | | [...] | 9.9 | 8.3 - 10.5 | [place] | | | | | mg/dL | [facility] | | | | | | MEDICAL | | | | | | CENTER - | | | | | | LABORATORY | | + + + + + + | Albumin | 3.8 | 3.2 - 5.0 g/dL | [facility] | | | | | | [facility] [...] [address] | [place] | [phone] | | [facility] | | [address] | | | - LABORATORY | | [...] [facility] | | | | | | [facility] | | | | | | [...] ST. | [address] | [place] | [phone] | | [facility] | | [address] | | | - LABORATORY | | [...]
--- OUTSIDE RECORDS SUMMARY | ~2020-01-25 | XMS | Encounter Summary ---
Demographics + + + | Address | [address] | | | [place] [address] | + + + | Home Phone [...] [place] | | | | | [address] | | + + + + + Care Team Providers + +------+ + | Care Membership Advisor Name | Role | Phone | + [...] [address] | | | | | [address] [place] | [place] [address] | | | | | [place] [address] | [phone] | | | | | [phone] | | | +--------+ + + + [...] from the original. IDT PATIENT MEDICATION/PROFILE REVIEW [facility] Pharmacy [...] CHOP alone in elderly patients with diffuse [id number] lymphoma. NEJM 2002; 346:235- 242. 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
--- OUTSIDE RECORDS SUMMARY | ~2020-01-25 | XMS | Encounter Summary ---
Demographics + + + | Address | [address] | | | [place] [address] | + + + | Home Phone [...] [place] | | | | | [address] | | + + + + + Care Team Providers + +------+ + | Care Sack Filler Name | Role | Phone | + [...] | | | | [address] | [place], [place] | | | | | | [place], [place] | [address] | | | | | | [address] | Phone: | | | | | | Phone: | [phone] | | | | | | [phone] | Fax: | | | | | | Fax: | [phone] | | | | | | [phone] | | + + + + + + + Reason for Visit + + + | Reason | Comments | + + + | Follow-up | | + + + Encounter Details +--------+---------+ + + + | Date | Type | Department | Care Team | Description | +--------+---------+ + + + | 10/01/ | Office | [facility] | Karen Miller, | Coronary artery | | 2020 | Visit | [facility] [place] | [address] | disease involving | | | | [address] | [place], [place] | [place] coronary | | | | [address] | [address] | artery of [place] | | | | [place] | | heart without angina | | | | [address] | | pectoris (Primary | | | | [phone] | | Dx); CPAP | | | [...] Has history of coronary artery disease and [place] in 2014 had PCI to mid RCA. [...] 02/27/2014 GLUF 98 02/27/2014 EK09/27/2019 Reviewed from [place] showed sinus bradycardia with first-degree AV block. Left ante rior fascicular block. Nonspecific ST-T wave changes. 03/19/2019 Ordered and reviewed by myself showed sinus bradycardia, first-degree AV block. Left axis d eviation. 04/18/2017 From [facility] showing normal sinus rhythm with left axis variation otherwise no rmal EKG. Echo 11/05/2016 From [place] Normal LV size with hyperdynamic systolic function, [...] | | | | | | [facility] [facility] | | | | | | [id number] | | | | | | | | +--------+---------+ + + + + + +--------+ + + | Name | Type | Priori | Associated Diagnoses | Order Schedule | | | | ty | | | + + +--------+ + + | Ambulatory Referral | Outpatient | Routin | Vertigo | Ordered: 10/01/2019 | | to [facility] | Referral | e | | | + + +--------+ + + documented as of this encounter Visit Diagnoses + + | Diagnosis | + + | Coronary artery disease involving [place] coronary artery of [place] heart without | | angina pectoris - Primary | + + | CPAP (continuous positive airway pressure) dependence Dependence on other enabling | | machine | + + | Vertigo Dizziness and giddiness | + + documented in this encounter
--- OUTSIDE RECORDS SUMMARY | ~2020-01-25 | XMS | Encounter Summary ---
Demographics + + + | Address | [address] | | | [place] [address] | + + + | Home Phone [...] [place] | | | | | [address] | | + + + + + Care Team Providers + +------+ + | Care Special Loan Officer Name | Role | Phone | [...] large b-cell | Gerber Benson, | [address] | | | | | lymphoma, | MD [address] | [place], | | | | | intra-abdomi | [address] | [place] [address] | | | | | nal lymph | [place], | Phone: | | | | | nodes (HCC) | [place] [address] | [phone] | | | | | Procedures | Phone: | Fax: | | | | | [place] | [phone] | [phone] | | | | | RITUXIMAB | Fax: | | | | | | INJECTION, | [phone] | | | | | | 100 MG [place] | | | | | | | MEPERIDINE | | | | | | | HYDROCHL | | | | | | | /100 MG [place] | | | | | | | IV INFUSION, | | | | | | | HYDRATION, | | | | | | | 31-60 MIN | | | | | | | WI IV | | | | | | | INFUSION, | | | | | | | HYDRATION, | | | | | | | EA ADD HOUR | | | | | | | WI | | | | | | | ONDANSETRON | | | | | | | HCL | | | | | | | INJECTION, 1 | | | | | | | MG WI | | | | | | | DEXAMETHASON | | | | | | | E SODIUM | | | | | | | PHOS, 1 MG | | | | | | | WI | | | | | | | FOSAPREPITAN | | | | | | | T INJECTION, | | | | | | | 1 MG WI | | | | | | | PREDNISONE | | | | | | | IR OR DR | | | | | | | ORAL 1MG WI | | | | | | | | | | | | | | CYCLOPHOSPHA | | | | | | | MIDE 100 MG | | | | | | | INJ WI | | | | | | | DOXORUBICIN | | | | | | | HCL | | | | | | | INJECTION, | | | | | | | 10 MG WI | | | | | | | VINCRISTINE | | | | | | | SULFATE 1 MG | | | | | | | INJ WI | | | | | | | DIPHENHYDRAM | | | | | | | INE HCL | | | | | | | INJECTIO, 50 | | | | | | | MG [place] | | | | | | | METHYLPREDNI | | | | | | | SOLONE | | | | | | | INJECTION, | | | | | | | 125 MG WI | | | | | | | DEXAMETHASON | | | | | | | E SODIUM | | | | | | | PHOS, 1 MG | | | | | | | WI | | | | | | | INJECTION, | | | | | | | PEGFILGRASTI | | | | | | | M 6MG WI | | | | | | | NORMAL | | | | | | | SALINE | | | | | | | SOLUTION | | | | | | | INFUS, 500 | | | | | | | ML WI | | | | | | | NORMAL | | | | | | | SALINE | | | | | | | SOLUTION | | | | | | | INFUS, 250 | | | | | | | ML WI | | | | | | | STERILE | | | | | | | WATER/SALINE | | | | | | | , 10 ML [place] | | | | | | | CHEMOTHER, | | | | | | | IV PUSH,EA | | | | | | | ADD DRUG WI | | | | | | | CHEMOTHER, | | | | | | | IV INFUSION, | | | | | | | 1 HR WI | | | | | | | CHEMOTHER, | | | | | | | IV INFUSION, | | | | | | | EA HR WI | | | | | | | CHEMOTHER,NO | | | | | | | N-HORMONE | | | | | | | ANTI-NEOPL, | | | | | | | SUB-Q/IM WI | | | | | | | [...] + + + + | 09/05/ | [facility] | [facility] | Mohamud, | Diffuse large B-cell | | 2016 | Encounter | MED CTR CHEMO | Gerber Benson MD [address] | lymphoma of | | | | INFUSION [address] | [address] [place] | intra-abdominal | | | | [place], | [place] [address] | lymph nodes (HCC) | | | | [place] [address] | [phone] | | | | | [phone] | | | +--------+ + + + [...] [place] | | | | | | [address] | | | | | | | [...] + | [facility] | [address] | [place] | [phone] | | [facility] | | [address] | | | - LABORATORY | | [...] mL/min/1.73m2 | [facility] | | | [facility] | RATE,ESTIMATED | | MEDICAL | | | | mL/min/1.51c7Lqfr than | | CENTER - | | [...] | 9.5 | 8.3 - 10.5 | [facility] | | | | | mg/dL | [...] + | [facility] | [address] | [place] | [phone] | | [facility] | | [address] | | | - LABORATORY | | [...] [address] | [place] | [phone] | | [facility] | | [address] | | | - LABORATORY | | [...] ST. | [address] | [place], [place] | [phone] | | [facility] | | [address] | | | - LABORATORY | | [...] [address] | [place] | [phone] | | [facility] | | [address] | | | - LABORATORY | | [...]
--- OUTSIDE RECORDS SUMMARY | ~2020-01-25 | XMS | Encounter Summary ---
Demographics + + + | Address | [address] | | | [place] [address] | + + + | Home Phone [...] [place] | | | | | [address] | | + + + + + Care Team Providers + +------+ + | Care Criminal Judge Name | Role | Phone | [...] W | | | | | | [place], | | | | | | [place] [address] | | | | | | [phone] | | | +--------+ + + + [...] [place], OT - [facility]2016 [facility] [address] [place] [address] Oncology Rehab Screening Date: 08/14/2016 Patient Information [...] [place] | | | | | | [id number] | | | | | | | | +--------+---------+ + + + documented as of this encounter Visit Diagnoses Not on filedocumented in this encounter
--- OUTSIDE RECORDS SUMMARY | ~2020-01-25 | XMS | Encounter Summary ---
Demographics + + + | Address | [address] | | | [place] [address] | + + + | Home Phone | | + + + | Preferred Language | Unknown | + + + | Marital Status | | + + + | Gnosticist Affiliation | 1013 | + + + | Race | Unknown | + + + | Ethnic Group | Unknown | + + + Author + + + | Author | [facility] | | | and [place] | + + + | Organization | [facility] | | [...] [place] | | | | | [address] | | + + + + + Care Team Providers + +------+ + | Care Elevator Mechanic Name | Role | Phone | + +------+ + | Kelsey Quintanilla MD | PCP | | + +------+ + Encounter Details +--------+---------+ + + + | Date | Type | Department | Care Team | Description | +--------+---------+ + + + | 10/22/ | Office | [facility] | Isaura Richter | Sensorineural | | 2020 | Visit | AUDIOLOGY [address] | [address], [place] | hearing loss (SNHL) | | | | [address] | [address] [place], [place] | of both ears | | | | [place], [place] | [address] | (Primary Dx) | | | | [address] | | | | | | [phone] | | | +--------+---------+ + + + [...] tech savvy. 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
--- OUTSIDE RECORDS SUMMARY | ~2020-01-25 | XMS | Encounter Summary ---
Demographics + + + | Address | [address] | | | [place] [address] | + + + | Home Phone [...] [place] | | | | | [address] | | + + + + + Care Team Providers + +------+ + | Care Floor Scraper Name | Role | Phone | + [...] HEALTH | | | | | [address] | [place] [address] | | | | | [place] [address] | [phone] | | | | | [phone] | | | +--------+ + + + [...] [place] | | | | | | [address] | | | | | | | | +--------+---------+ + + + documented as of this encounter Visit Diagnoses Not on filedocumented in this encounter"
--- OUTSIDE RECORDS SUMMARY | ~2020-01-25 | XMS | Encounter Summary ---
Demographics + + + | Address | [address] | | | [place] [address] | + + + | Home Phone [...] [place] | | | | | [address] | | + + + + + Care Team Providers + +------+ + | Care Director Hardware Name | Role | Phone | + [...] + + | 12/05/ | Hospital | [facility] | [facility], | Diffuse large B-cell | | 2017 | Encounter | MED CTR MEDICAL | Joaquim Benson MD [address] | lymphoma of | | | | ONCOLOGY CLINIC [address] | [address] [place] | intra-abdominal | | | | [address] [place] | [place] [address] | lymph nodes (HCC) | | | | [place] [address] | [phone] | (Primary Dx); | | | | [phone] | | Lymphedema of left | | [...] nt from the original. Hematology/Oncology Progress Note [place], [place] Pt. Name/Age/: Joaquim Sanchez Jr. 66 y.o. 1950 Med. Record Number: [id number] Date of admission: 12/05/2016 Identifying Statement: Joaquim Sanchez Jr. is a 66 y.o. male from [address] [place] [address] with Mixed Diffuse Large B-Cell/Follicular Lymphoma. The [...] node biopsy (ESTEE Morton) June 242015. Spec[facility] #[id number] [facility] Diffuse Large B-Cell lymph [...] 10. CT Abdomen/Pelvis at [facility] on September 12, 2016; Positive Response when [...] (PRIMA protocol). 14. Repeat CT scan at [facility], [place], [place] on December 01, [address] [facility] left iliac lymph node chain adenopathy. 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 Headaches have reso lved, decreased visual acuity is better. Chest pain and palpitations, and dyspnea on exertio n are better. complaints of rhinorrhea and epiphora are unchanged. Clinical exam is notable for stable left lower extremity lymphedema. Laboratory exam is notable for the absence of tvdthdk-wiypl-qzwyzgiyvno. Imaging from [facility], December 01, 2016 was reviewed with the [...] Ma., Rebel, REdita., Andie Menezes., Donal Trejo, Christine Rodriguez, Armando Diamond., Renea Ham.: Toxicity And Response Criteria Of The Eastern [...] OrderHistory Comprehensive Metabolic Panel STAT, ONE TIME, Sun11/07/16 at 0818, For 1 occurrence OrderHistory CBC [...] with treatment with maintenance rituximab. The treating renea bishop has examined the patient and reviewed [...] 650 mg 650 mg, Oral, ONCE, e 11/07/16 at 0945, For 1 dose Give 30 [...] this chart may have been created with [employer] voice recognition software. Occasi onal wrong-word or [...] [place] | | | | | | 025152 | | | | | | | [...]
--- OUTSIDE RECORDS SUMMARY | ~2020-01-25 | XMS | Encounter Summary ---
Demographics + + + | Address | [address] | | | [place] [address] | + + + | Home Phone | | + + + | Preferred Language | Unknown | + + + | Marital Status | | + + + | Oriental Orthodox Affiliation | 1013 | + + [...] [place] | | | | | [address] | | + + + + + Care Team Providers + +------+ + | Care Grease Refiner Operator Name | Role | Phone | + +------+ + | Earle Chacko MD | PCP | | + +------+ + Encounter Details +--------+ + + + + | Date | Type | Department | Care Team | Description | +--------+ + + + + | 07/21/ | Hospital | [facility] | Mohamud, | Diffuse large B-cell | | 2016 | Encounter | MED CTR MEDICAL | Gerber Benson MD [address] | lymphoma of | | | | ONCOLOGY CLINIC [address] | [address] [place] | intra-abdominal | | | | [address] [place] | [place] [address] | lymph nodes (HCC) | | | | [place] [address] | [phone] | (Primary Dx) | | | | [phone] | | | | | | | Olga Pepe, | | | | | | PharmD [address] | | | | | [address] [place], [place] | | | | | | [address] | | | | | | | [...] original. Clinical Oncology Pharmacy Services Progress Note [facility] Pt. Name/Age/: Gerber Galindo 66 y.o. 1950 CSN: [id number] Date of service: 07/21/2016 Provider: GEMINI AsherD Identifying Statement: Gerber Galindo is a 66 y.o. male from [address] [place] [address], The encounter diagnosis was Diffuse large B-cell [...] feel worse since his consult with Dr Malloyr. Side ef fects discussed include: neutropenia, anemia, [...] for comparison only - no result from [place]. Vas Lower Extremity Venous Left 07/17/2016 External films for comparison only - no result from [place]. Xr Chest 2 Vw 07/17/2016 External films for comparison only - no result from [place]. Imaging Report - External Scan 07/21/2016 Ordered by an unspecified provider. Imaging Report - External Scan 07/04/2016 Ordered by an unspecified provider. Imaging Report - External Scan 2016 Ordered by an unspecified provider. Imaging Report - External Scan 2016 Ordered by an unspecified provider. 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
--- OUTSIDE RECORDS SUMMARY | ~2020-01-25 | XMS | Encounter Summary ---
Demographics + + + | Address | [address] | | | [place] [address] | + + + | Home Phone [...] [place] | | | | | [address] | | + + + + + Care Team Providers + +------+ + | Care Wine Bottle Inspector Name | Role | Phone | [...] Office | [facility] | Mohamud, | Lymphedema of left | | 2017 | Visit | MED CNT ONCOLOGY | Gerber Benson MD [address] | lower extremity | | | | THERAPY [address] | [address] [place] | (Primary Dx) | | | | [employer] [place], | [place] [address] | | | | | [place] [address] | [phone] | | | | | [phone] | | | | | | | [...] of an appropriate compression garm ents for intermediate teacher management of edema. Goal 3 Status: Goal met Treatment Plan/Interventions 99270 - OT Cagffssgic17206 - Therapeutic Sskatxwj78239 - Therapeutic Ygtrvivkty58695 - Manu al Therapy Patient and/or family has indicated understanding of treatment needs and actively participa ian in the creation of this plan for care. Electronically signed by: Olivia Portillo OT, 09/26/2016 14:21 Patient Name: Gerber Galindo/: 1950/ Evelyn Vela OT - 09/26/2016 2:14 PM PSTFormatting of this note might be different from the [facility] [address] [employer] [place] [address] Occupational Therapy Discharge Note Date: 09/26/2016 Patient Information Patient Name: Gerber Galindo Date of : 1950 Age: 66 y.o. History Encounter Diagnoses Code Name Primary? I89.0 Lymphedema of left lower extremity Yes Date of Onset: 2016 Referring Provider: Gerber Mallory MD Rehab Precautions Office Visit from 08/24/2016 in [facility] THERAPY OT OP Rehab Precautions Precautions None Rehab Learning Style Office Visit from 08/24/2016 in [facility] CTR THERAPY OT OP Learning Style [...] of an appropriate compression garm ents for intermediate teacher management of edema. Goal 3 Status: Goal met Plan Date of Onset: 2016 Start of Care Date: 08/24/2016 Requested # of Visits: 8 visits 1x/week for 8 weeks Certification From: 08/24/2016 Certification To: 10/24/2016 Treatment Plan/Interventions 77667 - OT Sqlienrdsf38995 - Therapeutic Ujmiqncd27146 - Therapeutic Hxsqsyiizt42217 - Manu al Therapy Patient and/or family [...] concerns at this time. PLAN: Discharge to [facility]. Electronically signed by: Olivia Portillo OT, 09/26/2016 [...] [place] | | | | | | [address] | | | | | | | | +--------+---------+ + + + documented as of this encounter Visit Diagnoses + + | Diagnosis | + + | Lymphedema of left lower extremity - Primary | + + documented in this encounter
--- OUTSIDE RECORDS SUMMARY | ~2020-01-25 | XMS | Encounter Summary ---
Demographics + + + | Address | [address] | | | [place] [address] | + + + | Home Phone [...] [place] | | | | | [address] | | + + + + + Care Team Providers + +------+ + | Care Lead Care Manager Name | Role | Phone | [...] + + | 08/14/ | Hospital | [facility] | Mohamud, | Diffuse large B-cell | | 2016 | Encounter | MED CTR NUTRITION | Gerber Benson MD [address] | lymphoma of | | | | SERVICES [address] | [address] [place] | intra-abdominal | | | | [place], | [place] [address] | lymph nodes (HCC) | | | | [place] [address] | [phone] | (Primary Dx) | | | | [phone] | | | | | | | [place], | | | | | | [...] [place] | | | | | | [address] | | | | | | | | +--------+---------+ + + + documented as of this encounter Visit Diagnoses + + | Diagnosis | + + | 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
--- OUTSIDE RECORDS SUMMARY | ~2020-01-25 | XMS | Encounter Summary ---
Demographics + + + | Address | [address] | | | [place] [address] | + + + | Home Phone [...] [place] | | | | | [address] | | + + + + + Care Team Providers + +------+ + | Care Gasket Former Name | Role | Phone | [...] large b-cell | Gerber Benson, | [address] | | | | | lymphoma, | MD [address] | [place], | | | | | intra-abdomi | [address] | [place] [address] | | | | | nal lymph | [place], | Phone: | | | | | nodes (HCC) | [place] [address] | [phone] | | | | | Procedures | Phone: | Fax: | | | | | [place] | [phone] | [phone] | | | | | INJECTION, | Fax: | | | | | | FAMOTIDINE, | [phone] | | | | | | [address] [...] [place] | intra-abdominal | | | | [place], | [place] [address] | lymph nodes (HCC) | | | | [place] [address] | [phone] | | | | | [phone] | | | +--------+ + + + [...] [place] | | | | | | [address] | | | | | | | [...] + | [facility] | [address] | [place] | [phone] | | [facility] | | [address] | | | - LABORATORY | | [...] | | | FILTRATION | mL/min/1.73m2 | [facility] | | | BRITISH | RATE,ESTIMATED | | MEDICAL | | | | mL/min/1.01n6Ipme than | | CENTER - | | [...] 3.6 | 3.2 - 5.0 g/dL | [facility] | | | | | | [facility] | | | | | | [...] + | [address] | [address] | [place] | [phone] | | [facility] | | [address] | | | - LABORATORY | | [...] ST. | [address] | [place], [place] | [phone] | | [facility] | | [address] | | | - LABORATORY | | [...]
--- OUTSIDE RECORDS SUMMARY | ~2020-01-25 | XMS | Encounter Summary ---
Demographics + + + | Address | [address] | | | [place] [address] | + + + | Home Phone | | + + + | Preferred Language | Unknown | + + + | Marital Status | | + + + | Moravian Affiliation | 1013 | + + + | Race | Unknown | + + + | Ethnic Group | Unknown | + + + Author + + + | Author | [facility] | | | and [place] | + + + | Organization | [facility] [...] [place] | | | | | [address] | | + + + + + Care Team Providers + +------+ + | Care Clock And Watch Hands Mounter Name | Role | Phone | + [...] large b-cell | Gerber Benson, | [address] [place] | | | | | lymphoma, | MD [address] | [place], | | | | | intra-abdomi | [address] | [place] [address] | | | | | nal lymph | [place], | Phone: | | | | | nodes (HCC) | [place] [address] | [phone] | | | | | Procedures | Phone: | Fax: | | | | | [place] | [phone] | [phone] | | | | | [place] | Fax: | | | | | | INJECTION, | [phone] | | | | | | 100 [...] + + + + | 07/25/ | [facility] | [facility] | Mohamud, | Diffuse large B-cell | | 2016 | Encounter | MED CTR CHEMO | Gerber Benson MD [address] | lymphoma of | | | | INFUSION [address] | [address] [place] | intra-abdominal | | | | [place], | [place] [address] | lymph nodes (HCC) | | | | [place] [address] | [phone] | | | | | [phone] | | | +--------+ + + + [...] | 05/19/ | Office | Cardiology | Kaern Bansal, | | | 2019 | Visit | | MD Patricia JOHNSON | | | | | | [place], [place] | | | | | | [address] | | | | | | | [...]
--- OUTSIDE RECORDS SUMMARY | ~2020-01-25 | XMS | Encounter Summary ---
Demographics + + + | Address | [address] | | | [place] [address] | + + + | Home Phone [...] [place] | | | | | [address] | | + + + + + Care Team Providers + +------+ + | Care Wrapper And Preserver Name | Role | Phone | + [...] + + | 09/05/ | Office | [facility] | Mohamud, | Lymphedema of left | | 2016 | Visit | MED CNT ONCOLOGY | Gerber Benson MD [address] | lower extremity | | | | THERAPY [address] | [address] [place] | (Primary Dx) | | | | [place], | [place] [address] | | | | | [place] [address] | [phone] | | | | | [phone] | | | | | | | [...] Portillo OT - 09/05/2016 11:16 AM PST [facility] CTR THERAPY OT OP [address] [place] [address] Occupational Therapy Daily Treatment Note Date: 09/05/2016 [...] [place] | | | | | | [address] | | | | | | | | +--------+---------+ + + + documented as of this encounter Visit Diagnoses + + | Diagnosis | + + | Lymphedema of left lower extremity - Primary | + + documented in this encounter"
--- OUTSIDE RECORDS SUMMARY | ~2020-01-25 | XMS | Encounter Summary ---
Demographics + + + | Address | [address] | | | [place] [address] | + + + | Home Phone [...] [place] | | | | | [address] | | + + + + + Care Team Providers + +------+ + | Care Capper Machine Operator Name | Role | Phone [...] + + | 06/19/ | Hospital | [facility] | Mohamud, | Diffuse large B-cell | | 2017 | Encounter | MED CTR MEDICAL | Joaquim Benson MD [address] | lymphoma of | | | | ONCOLOGY CLINIC [address] | [address] [place] | intra-abdominal | | | | [place] | [place] [address] | lymph nodes (HCC) | | | | [place] [address] | [phone] | | | | | [phone] | | | +--------+ + + + [...] nt from the original. Hematology/Oncology Progress Note [facility] [place] Pt. Name/Age/: Joaquim Leon Josie Jerez 66 y.o. 1950 Med. Record Number: [id number] Date of admission: 06/19/2017 Identifying Statement: Joaquim Leon Josie ChristiansonChristian is a 66 y.o. male from [address] [address] with Mixed Diffuse Large B-Cell/Follicular Lymphoma in [...] lower extremity. CT abdomen/Pelvis with contrast 2016 ([facility]). Ex tensive periaortic lymphadenopathy (1.8 cm and 2.1 cm respectively), extensive adenopathy ex tending out along the left common iliac artery and encasing the left external iliac artery ( 4.4 cm) with compromise of the left external iliac vein. 2. Open laparotomy with LEFT ileal retroperitoneal lymph node biopsy ([facility]ra[facility], [facility]) June 242015. Specimen #[id number] ([facility] Pathology); Diffuse Large B-Cell lymph raciel, [...] September 04, 2016. 10. CT Abdomen/Pelvis at [facility] on September 12, 2016; [...] (PRIMA protocol). 14. Repeat CT scan at [place], [place] on December 01, [address] [...] mm 15. Repeat CT scan at [facility] on April 18, 2017 demonstrated decreased [...] 2006 , Vol. 47, No. 6, pp 9775-8426. In the first article, an observational study [...] observational study, by Marques et al from [facility] th at reports neutropenia developed in [...] this chart may have been created with [employer] voice recognition software. Occasi onal wrong-word or [...] | | | | | [place] | | | | | | [address] | | | | | | | | +--------+---------+ + + + documented as of this encounter Visit Diagnoses + + | Diagnosis | + + | Diffuse large B-cell lymphoma of intra-abdominal lymph nodes (HCC) Other malignant | | lymphomas of intra-abdominal lymph nodes | + + documented in this encounter
--- OUTSIDE RECORDS SUMMARY | ~2020-01-25 | XMS | Encounter Summary ---
Demographics + + + | Address | [address] | | | [place] [address] | + + + | Home Phone [...] [place] | | | | | [address] | | + + + + + Care Team Providers + +------+ + | Care Four Corner Stayer Machine Operator Name | Role | Phone [...] large b-cell | Gerber Benson, | [address] | | | | | lymphoma, | MD [address] | [place], | | | | | intra-abdomi | [address] | [place] [address] | | | | | nal lymph | [place], | Phone: | | | | | nodes (HCC) | [place] [address] | [phone] | | | | | Procedures | Phone: | Fax: | | | | | [place] | [phone] | [phone] | | | | | R[place]IMAB | Fax: | | | | | | INJECTION, | [phone] | | | | | | 100 MG MA | | | | | | | MEPERIDINE | | | | | | | HYDROCHL | | | | | | | /100 MG MA | | | | | | | IV INFUSION, | | | | | | | HYDRATION, | | | | | | | 31-60 MIN | | | | | | | MA IV | | | | | | | INFUSION, | | | | | | | HYDRATION, | | | | | | | EA ADD HOUR | | | | | | | MA | | | | | | | ONDANSETRON | | | | | | | HCL | | | | | | | INJECTION, 1 | | | | | | | MG MA | | | | | | | DEXAMETHASON | | | | | | | E SODIUM | | | | | | | PHOS, 1 MG | | | | | | | MA | | | | | | | FOSAPREPITAN | | | | | | | T INJECTION, | | | | | | | 1 MG MA | | | | | | | PREDNISONE | | | | | | | IR OR DR | | | | | | | ORAL 1MG MA | | | | | | | | | | | | | | CYCLOPHOSPHA | | | | | | | MIDE 100 MG | | | | | | | INJ MA | | | | | | | DOXORUBICIN | | | | | | | HCL | | | | | | | INJECTION, | | | | | | | 10 MG MA | | | | | | | VINCRISTINE | | | | | | | SULFATE 1 MG | | | | | | | INJ MA | | | | | | | DIPHENHYDRAM | | | | | | | INE HCL | | | | | | | INJECTIO, 50 | | | | | | | MG MA | | | | | | | METHYLPREDNI | | | | | | | SOLONE | | | | | | | INJECTION, | | | | | | | 125 MG MA | | | | | | | DEXAMETHASON | | | | | | | E SODIUM | | | | | | | PHOS, 1 MG | | | | | | | MA | | | | | | | INJECTION, | | | | | | | PEGFILGRASTI | | | | | | | M 6MG MA | | | | | | | NORMAL | | | | | | | SALINE | | | | | | | SOLUTION | | | | | | | INFUS, 500 | | | | | | | ML MA | | | | | | | NORMAL | | | | | | | SALINE | | | | | | | SOLUTION | | | | | | | INFUS, 250 | | | | | | | ML MA | | | | | | | STERILE | | | | | | | WATER/SALINE | | | | | | | , 10 ML MA | | | | | | | CHEMOTHER, | | | | | | | IV PUSH,EA | | | | | | | ADD DRUG MA | | | | | | | CHEMOTHER, | | | | | | | IV INFUSION, | | | | | | | 1 HR MA | | | | | | | CHEMOTHER, | | | | | | | IV INFUSION, | | | | | | | EA HR MA | | | | | | | CHEMOTHER,NO | | | | | | | N-HORMONE | | | | | | | ANTI-NEOPL, | | | | | | | SUB-Q/IM MA | | | | | | | [...] + + + + | 10/17/ | [facility] | [facility] | Mohamud, | Diffuse large B-cell | | 2017 | Encounter | MED CTR CHEMO | Gerber Benson MD [address] | lymphoma of | | | | INFUSION [address] | [address] [place] | intra-abdominal | | | | [place], | [place] [address] | lymph nodes (HCC) | | | | [place] [address] | [phone] | (Primary Dx) | | | | [phone] | | | +--------+ + + + [...] 05/19/ | Office | Cardiology | Karen Bnasal, | | | 2019 | Visit | | MD Patricia JOHNSON | | | | | | [place] | | | | | | [address] | | | | | | | [...] + | [address] [facility] | [address] | [place] | [phone] | | [facility] | | [address] | | | - LABORATORY | | [...] | [facility] | | | [place] | RATE,ESTIMATED | | MEDICAL | | | | mL/min/1.61h7Fdbc than | | CENTER - | | [...] + | [address] [facility] | [address] | [place] | [phone] | | [facility] | | [address] | | | - LABORATORY | | [...] ST. | [address] | [place], [place] | [phone] | | [facility] | | [address] | | | - LABORATORY | | [...]
--- OUTSIDE RECORDS SUMMARY | ~2020-01-25 | XMS | Encounter Summary ---
Demographics + + + | Address | [address] | | | [place] [address] | + + + | Home Phone [...] [place] | | | | | [address] | | + + + + + Care Team Providers + +------+ + | Care Rivet Hammer Machine Operator Name | Role | Phone [...] + + | 08/03/ | Hospital | [facility] | [facility], | Diffuse large B-cell | | 2016 | Encounter | MED CTR MEDICAL | Joaquim Benson MD [address] | lymphoma of | | | | ONCOLOGY CLINIC [address] | [address] [place] | intra-abdominal | | | | [place] | [place] [address] | lymph nodes (HCC) | | | | [place] [address] | [phone] | (Primary Dx) | | | | [phone] | | | +--------+ + + + [...] IU orally twice a day. 3) Ginseng: Malian ginseng (Wisconsin ginseng) Panax quinquefolius 2000 mg [...] nt from the original. Hematology/Oncology Progress Note [facility] [place] Pt. Name/Age/: Joaquim Sanchez 66 y.o. 1950 Med. Record Number: [id number] Date of admission: 08/03/2016 Identifying Statement: Joaquim Sanchez is a 66 y.o. male from [address] [address] with Diffuse Large B-Cell Lymphoma. The patient [...] node biopsy ([facility], [facility]) June 242015. Specimen #[id number] ([facility] Pathology); Diffuse Large B-Cell lymph raciel, [...] this chart may have been created with [employer] voice recognition software. Occasi onal wrong-word or [...] [place] | | | | | | [address] | | | | | | | [...] 152 | 91 - 180 U/L | [facility] | | | | | | [facility] [...] ST. | [address] | [place], [place] | [phone] | | [facility] | | [address] | | | - LABORATORY | | [...] 13 | 7 - 18 mg/dL | [facility] | | | | | | [facility] | | | | | | MEDICAL | | | | | | CENTER - | | | | | | LABORATORY | | + + + + + + | Creatinine | 0.97 | 0.60 - 1.30 | [facility] | | | | | mg/dL | [facility] | | | | | | MEDICAL | | | | | | CENTER - | | | | | | LABORATORY | | + + + + + + | eGFR if not | >60Comment: GLOMERULAR | >=60 | [facility] | | | | FILTRATION | mL/min/1.73m2 | [facility] | | | [place] | RATE,ESTIMATED | | MEDICAL | | | | mL/min/1.64r2Abjo than | | CENTER - | | [...] [address] | [place] | [phone] | | [facility] | | [address] | | | - LABORATORY | | [...] [address] | [place] | [phone] | | [facility] | | [address] | | | - LABORATORY | | | | + + + + + documented in this encounter Visit Diagnoses + + | Diagnosis | + + | 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
--- OUTSIDE RECORDS SUMMARY | ~2020-01-25 | XMS | Encounter Summary ---
Demographics + + + | Address | [address] | | | [place] [address] | + + + | Home Phone [...] [place] | | | | | [address] | | + + + + + Care Team Providers + +------+ + | Care Public Relations Supervisor Name | Role | Phone | [...] | | Diffuse | Mohamud, | [employer] | | | | | large B-cell | Joaquim C, | [place], | | | | | lymphoma of | MD [address] | [place] [address] | | | | | | [address] | Phone: | | | | | intra-abdomi | [place], | [phone] | | | | | nal lymph | [place] [address] | Fax: | | | | | nodes (HCC) | Phone: | [phone] | | | | | Procedures | [phone] | | | | | | CT Abdomen | Fax: | | | | | | Pelvis w | [phone] | | | | | | Contrast [...] | | | nal lymph | [place] [address] | [address] Phone: | | | | | nodes (HCC) | Phone: | [phone] | | | | | Procedures | [phone] | Fax: | | | | | [address] | Fax: | [phone] | | | | | | [phone] | | +--------+--------+ + + + + Encounter Details +--------+ + + + + | Date | Type | Department | Care Team | Description | +--------+ + + + + | 10/09/ | Hospital | [facility] | Mohamud, | Diffuse large B-cell | | 2018 | Encounter | [facility] | Joaquim Benson MD [address] | lymphoma of | | | | ONCOLOGY CLINIC [address] | [address] [place] | intra-abdominal | | | | [employer] [place] | [facility] [place] [address] | lymph nodes (HCC) | | | | [place] [address] | [phone] | (Primary Dx) | | | | [phone] | | | +--------+ + + + [...] nt from the original. Hematology/Oncology Progress Note [facility] [place] Pt. Name/Age/: Joaquim Sanchez Jr. 67 y.o. 1950 Med. Record Number: [id number] Date of admission: 10/09/2017 Identifying Statement: Joaquim Sanchez Jr. is a 67 y.o. male from [address] [address] with Mixed Diffuse Large B-Cell/Follicular Lymphoma in [...] lower extremity. CT abdomen/Pelvis with contrast 2016 ([facility]). Ex tensive periaortic lymphadenopathy (1.8 cm and 2.1 cm respectively), extensive adenopathy ex tending out along the left common iliac artery and encasing the left external iliac artery ( 4.4 cm) with compromise of the left external iliac vein. 2. Open laparotomy with LEFT ileal retroperitoneal lymph node biopsy (Praveen, [facility]) June 242015. Specimen #[id number] ([facility] Pathology); Diffuse Large B-Cell lymph raciel, germinal [...] September 04, 2016. 10. CT Abdomen/Pelvis at [facility] on September 12, 2016; Positive [...] Repeat CT scan at [facility], [place], [place] on December 01, [address] [...] [address] scan at [facility] on April 18, 2017 demonstrated decreased left [...] ly mphedema machine for home use through [facility] home health. Chief complaint is fatigue. Clinical [...] Oncol.: Davida Ma., Rebel, R.H., Andie Menezes., Donal Trejo, Michael TDusty., Taty DiamondT., Fatoumata, P .P.: Toxicity And Response Criteria Of The Eastern Cooperative Oncology Group. Am J Clin Onc ol 5:649-655, 1982. The ECOG Performance Status is in the public domain therefore available for public use. To duplicate the scale, please cite the reference above and credit the [employer], Joaquim Aguirre M.D., [...] 2006 , Vol. 47, No. 6, pp 1664-7282. In the first article, an observational study [...] observational study, by Marques et al from [facility] th at reports neutropenia developed [...] (Not Released) Schedule CT scan abdomen/pelvis at [facility] QFU CBC,CMP,LDH Port DRAW IN 2 months [...] this chart may have been created with [employer] recognition software. Occasi onal wrong-word or sound-alike [...] | | | | | [place], [place] | | | | | | [id number] | | | | | | | [...]
--- OUTSIDE RECORDS SUMMARY | ~2020-01-25 | XMS | Encounter Summary ---
Demographics + + + | Address | [address] | | | [place] [address] | + + + | Home Phone [...] [place] | | | | | [address] | | + + + + + Care Team Providers + +------+ + | Care Sr. 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
--- OUTSIDE RECORDS SUMMARY | ~2020-01-25 | XMS | Encounter Summary ---
Demographics + + + | Address | [address] | | | [place] [address] | + + + | Home Phone [...] [place] | | | | | [address] | | + + + + + Care Team Providers + +------+ + | Care Air Conditioning Service Technician Name | Role | Phone [...] large b-cell | Gerber Benson, | [address] [place] | | | | | lymphoma, | MD [address] | [place], | | | | | intra-abdomi | [address] | [place] [address] | | | | | nal lymph | [place], | Phone: | | | | | nodes (HCC) | [place] [address] | [phone] | | | | | Procedures | Phone: | Fax: | | | | | [place] | [phone] | [phone] | | | | | [place] | Fax: | | | | | | INJECTION, | [phone] | | | | | | 100 [...] + + + + | 02/26/ | [facility] | [facility] | Mohamud, | Diffuse large B-cell | | 2017 | Encounter | MED CTR CHEMO | Gerber Benson MD [address] | lymphoma of | | | | INFUSION [address] | [address] [place] | intra-abdominal | | | | [place], | [place] [address] | lymph nodes (HCC); | | | | [place] [address] | [phone] | Lymphedema of left | | | | [phone] | | lower extremity | +--------+ + [...] | | | | [place], [place] | | | | | | [address] | | | | | | | [...] ST. | [address] | [place], [place] | [phone] | | [facility] | | [address] | | | - LABORATORY | | [...] mL/min/1.73m2 | [facility] | | | [facility] | RATE,ESTIMATED | | MEDICAL | | | | mL/min/1.08t2Duzx than | | CENTER - | | [...] + | [facility] | [address] | [place] | [phone] | | [facility] | | [address] | | | - LABORATORY | | [...] ST. | [address] | [place] | [phone] | | [facility] | | [address] | | | - LABORATORY | | [...]
--- OUTSIDE RECORDS SUMMARY | ~2020-01-25 | XMS | Encounter Summary ---
Demographics + + + | Address | [address] | | | [place] [address] | + + + | Home Phone | | + + + | Preferred Language | Unknown | + + + | Marital Status | | + + + | Orthodox Affiliation | 1013 | + + + | Race | Unknown | + + + | Ethnic Group | Unknown | + + + Author + + + | Author | [facility] | | | and [place] | + + + | Organization | [facility] | | [...] [place] | | | | | [address] | | + + + + + Care Team Providers + +------+ + | Care Environmental Engineering Professor Name | Role | Phone | + [...] + + | 12/05/ | Hospital | [facility] | [facility], | Diffuse large B-cell | | 2017 | Encounter | MED CTR MEDICAL | Joaquim Benson MD [address] | lymphoma of | | | | ONCOLOGY CLINIC [address] | [address] [place] | intra-abdominal | | | | [place] | [place] [address] | lymph nodes (HCC) | | | | [place] [address] | [phone] | (Primary Dx); | | | | [phone] | | Lymphedema of left | | [...] nt from the original. Hematology/Oncology Progress Note [place], [place] Pt. Name/Age/: Joaquim Sanchez Jr. 66 y.o. 1950 Med. Record Number: [id number] Date of admission: 12/05/2016 Identifying Statement: Joaquim Sanchez Jr. is a 66 y.o. male from [address] [address] with Mixed Diffuse Large B-Cell/Follicular Lymphoma. The [...] node biopsy ([facility]) June 242015. [id number] [facility] Diffuse Large B-Cell lymph [...] 04, 2016. 10. CT Abdomen/Pelvis at [facility] on September 12, 2016; Positive [...] scan at [facility], [place], [place] on December 01, [address] [facility] left iliac lymph node chain adenopathy. Region [...] also notable for the fact that Rios's insurance account specialist has prescribed Sineme t 10/100 for restless [...] in these nails being extracted by his insurance account specialist. Headaches have reso lved, decreased visual acuity is better. Chest pain and palpitations, and dyspnea on exertio n are better. complaints of rhinorrhea and epiphora are unchanged. Clinical exam is notable for stable left lower extremity lymphedema. Laboratory exam is notable for the absence of jfaplfx-eiaez-hwvbgbacznr. Imaging from [facility], December 01, 2016 was reviewed [...] this chart may have been created with [employer] voice recognition software. Occasi onal wrong-word [...] [place] | | | | | | [address] | | | | | | | [...]
--- OUTSIDE RECORDS SUMMARY | ~2020-01-25 | XMS | Clinical Summary ---
Demographics + + + | Address | [address] | | | [place] [address] | + + + | Home Phone | | + + + | Preferred Language | Unknown | + + + | Marital Status | | + + + | Taoist Affiliation | 1013 | + + + | Race | Unknown | + + + | Ethnic Group | Unknown | + + + Author + + + | Author | [facility] (Historical as of | | | 05-10-19) | + + + | Organization | [facility] (Historical as of | | | 05-10-19) [...] [place] | | | | | [address] | | + + + + + Care Team Providers + +------+ + | Care Software Business Analyst Name | Role | Phone | [...] + + | 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 Specimen #[id number] (Marcial, | | [facility]); Diffuse Large B-Cell lymphoma, germinal | [...] 04, 2016.10. CT Abdomen/Pelvis | | at [facility] on September 12, 2016; | | [...] protocol).14. Repeat CT scan at | | [facility], [place], [place] on December 01, 2016 | | [...] [address] scan at [facility] on April 18, | | 2016 demonstrated [...] | mm 16. Repeat CT scan at [facility] on November 21, | | 2017 [...] lower | | extremity venous doppler 2016 ([facility]) No DVT left lower | | extremity. CT abdomen/Pelvis with contrast 2016 | | ([facility]). Extensive periaortic lymphadenopathy (1.8 cm and 2.1 cm | | respectively), extensive adenopathy extending out along the left | | common iliac artery and encasing the left external iliac artery | | (4.4 cm) with compromise of the left external iliac vein.2. Open | | laparotomy with LEFT ileal retroperitoneal lymph node biopsy | | (Praveen, [facility]) July 05, 2016. Specimen #[id number] ([facility], | | [facility]); Diffuse Large B-Cell lymphoma, germinal | [...] 04, 2016.10. CT Abdomen/Pelvis | | at [facility] [place] on September 12, 2016; | [...] protocol).14. Repeat CT scan at | | [facility], [place], [place] on December 01, 2016 | | [...] [address] scan at [facility] on April 18 | | [...] | mm 16. Repeat CT scan at [facility] on November 21 | | 2017 [...] [address] scan at [facility] on | | September 09, 2018 [...] | | negative for any signs of kvrpazs-kddhg-vostxuzdzrr.Assessment; | | composite mixed diffuse large B-cell/follicular [...] +------+-------+ + | MEDICARE | MEDICA | [id number] | | | [address] | | | RE | | | | [place], [place] [address] | | | IP-OP | | | | | + +--------+ +------+-------+ + | PREMERA | PREMER | [id number] | | | [address] [address] | | | A BLUE | | | | [place], [place] | | | CROSS | | | | [address] | | | FED | | | [...] | | | sona | | | [address]19 | [address] | + +--------+ +--------+ + +
--- OUTSIDE RECORDS SUMMARY | ~2020-01-25 | XMS | Encounter Summary ---
Demographics + + + | Address | [address] | | | [place] [address] | + + + | Home Phone [...] [place] | | | | | [address] | | + + + + + Care Team Providers + +------+ + | Care Scrap Yard Worker Name | Role | Phone | [...] | | | | B-Cell/Folli | [address] | [address] [place] | | | | | cular | [place], | [place], [place] | | | | | Lymphoma | [place] | [address] Phone: | | | | | Procedures | [address] | [phone] | | | | | [address] | Phone: | Fax: | | | | | | [phone] | [phone] | | | | | | Fax: | | | | | | | [phone] | | +--------+--------+ + + + + Encounter Details +--------+ + + + + | Date | Type | Department | Care Team | Description | +--------+ + + + + | 01/28/ | Hospital | [facility] | Mohamud, | Diffuse large B-cell | | 2018 | Encounter | MED CTR MEDICAL | Joaquim Benson MD [address] | lymphoma of | | | | ONCOLOGY CLINIC [address] | [address] [place] | intra-abdominal | | | | [address] [place] | [place] [address] | lymph nodes (HCC) | | | | [place] [address] | [phone] | | | | | [phone] | | | +--------+ + + + [...] nt from the original. Hematology/Oncology Progress Note [facility] [place] Pt. Name/Age/: Joaquim Sanchez Jr. 67 y.o. 1950 [facility]. Record Number: [id number] Date of admission: 01/28/2018 The patient's primary care provider is Kelsey Quintanilla MD. Identifying Statement: Joaquim Sanchez Jr. is a 67 y.o. male from [address] [place] [address] with Mixed Diffuse Large B-Cell/Follicular Lymphoma in [...] lower extremity. CT abdomen/Pelvis with contrast 2016 ([facility] Ex tensive periaortic lymphadenopathy (1.8 cm and 2.1 cm respectively), extensive adenopathy ex tending out along the left common iliac artery and encasing the left external iliac artery ( 4.4 cm) with compromise of the left external iliac vein. 2. Open laparotomy with LEFT ileal retroperitoneal lymph node biopsy (Praveen, [facility]) June 242015. Specimen #[id number] ([facility]); Diffuse Large B-Cell lymph [...] 2016. 10. CT Abdomen/Pelvis at [facility] on September 12, 2016; Positive Response [...] ([facility] protocol). 14. Repeat CT scan at [place], [place] on December 01, [address] [...] [address]. [address] scan at [facility] on April 18, 2017 demonstrated decreased [...] [address] scan at [facility] on November 21, 2017 demonstrated decreased [...] REdita., Andie Menezes., Donal Trejo, Vy Rodriguez., Dara EChristianT., Fatoumata, P .P.: Toxicity And [...] 2006 , Vol. 47, No. 6, pp 2975-6180. In the first article, an observational study [...] observational study, by Marques et al from [facility] th at reports neutropenia developed in [...] this chart may have been created with [employer] voice recognition software. Occasi onal wrong-word [...] | | | | | | [facility] | | | | | | [address] | | | | | | | | +--------+---------+ + + + documented as of this encounter Visit Diagnoses + + | Diagnosis | + + | Diffuse large B-cell lymphoma of intra-abdominal lymph nodes (HCC) Other malignant | | lymphomas of intra-abdominal lymph nodes | + + documented in this encounter
--- OUTSIDE RECORDS SUMMARY | ~2020-01-25 | XMS | Encounter Summary ---
Demographics + + + | Address | [address] | | | [place] [address] | + + + | Home Phone [...] [place] | | | | | [address] | | + + + + + Care Team Providers + +------+ + | Care Laboratory Chief Name | Role | Phone | + [...] large b-cell | Gerber Benson, | [address] [place] | | | | | lymphoma, | MD [address] | [place], | | | | | intra-abdomi | [address] | [place] [address] | | | | | nal lymph | [place], | Phone: | | | | | nodes (HCC) | [place] [address] | [phone] | | | | | Procedures | Phone: | Fax: | | | | | [place] | [phone] | [phone] | | | | | [place] | Fax: | | | | | | INJECTION, | [phone] | | | | | | 100 [...] + + + + | 09/26/ | [facility] | [facility] | Mohamud, | Diffuse large B-cell | | 2017 | Encounter | MED CTR CHEMO | Gerber Benson MD [address] | lymphoma of | | | | INFUSION [address] | [address] [place] | intra-abdominal | | | | [place], | [place] [address] | lymph nodes (HCC) | | | | [place] [address] | [phone] | | | | | [phone] | | | +--------+ + + + [...] | | | | | [place], [place] | | | | | | [address] | | | | | | | [...] [address] | [place] | [phone] | | [facility] | | [address] | | | - LABORATORY | | [...] 16 | 7 - 18 mg/dL | [facility] | | | | | | [facility] | | | | | | MEDICAL | | | | | | CENTER - | | | | | | LABORATORY | | + + + + + + | Creatinine | 0.89 | 0.60 - 1.30 | [facility] | | | | | mg/dL | [facility] | | | | | | MEDICAL | | | | | | CENTER - | | | | | | LABORATORY | | + + + + + + | eGFR if not | >60Comment: GLOMERULAR | >=60 | [facility] | | | | FILTRATION | mL/min/1.73m2 | [facility] | | | [place] | RATE,ESTIMATED | | MEDICAL | | | | mL/min/1.59r5Idiz than | | CENTER - | | [...] [address] | [place] | [phone] | | [facility] | | [address] | | | - LABORATORY | | [...] [address] | [place] | [phone] | | [facility] | | [address] | | | - LABORATORY | | [...]
--- OUTSIDE RECORDS SUMMARY | ~2020-01-25 | XMS | Encounter Summary ---
Demographics + + + | Address | [address] | | | [place] [address] | + + + | Home Phone [...] [place] | | | | | [address] | | + + + + + Care Team Providers + +------+ + | Care Elevator Tender Name | Role | Phone | [...] | ONCOLOGY CLINIC [address] | [address] [facility] | | | | | [address] [place] | [place] [address] | | | | | [place] [address] | [phone] | | | | | [phone] | | | +--------+ + + + [...] [place] | | | | | | [address] | | | | | | | | +--------+---------+ + + + documented as of this encounter Visit Diagnoses Not on filedocumented in this encounter"
--- OUTSIDE RECORDS SUMMARY | ~2020-01-25 | XMS | Encounter Summary ---
Demographics + + + | Address | [address] | | | [place] [address] | + + + | Home Phone [...] [place] | | | | | [address] | | + + + + + Care Team Providers + +------+ + | Care Special Procedures Technologist Name | Role | Phone | [...] + + | 08/28/ | Office | [facility] | Mohamud, | Lymphedema of left | | 2016 | Visit | MED CNT ONCOLOGY | Gerber Benson MD [address] | lower extremity | | | | THERAPY [address] | [address] [place] | (Primary Dx) | | | | [place], | [place] [address] | | | | | [place] [address] | [phone] | | | | | [phone] | | | | | | | [...] Portillo OT - 08/28/2016 1:07 PM PST [facility] CTR THERAPY OT OP [address] [place] [address] Occupational Therapy Daily Treatment Note Date: 08/28/2016 Patient Information Patient Name: Gerber Galindo Date of : 1950 Age: 66 y.o. History Encounter Diagnoses Code Name Primary? I89.0 Lymphedema of left lower extremity Yes Date of Onset: 2016 Referring Provider: Gerber Mallory MD Rehab Precautions Office Visit from 08/24/2016 in [facility] CTR THERAPY OT OP Rehab Precautions Precautions None Rehab Learning Style Office Visit from 08/24/2016 in [facility] CTR THERAPY OT OP Learning Style [...] | | | | | [place] | | | | | | [address] | | | | | | | | +--------+---------+ + + + documented as of this encounter Visit Diagnoses + + | Diagnosis | + + | Lymphedema of left lower extremity - Primary | + + documented in this encounter
--- OUTSIDE RECORDS SUMMARY | ~2020-01-25 | XMS | Encounter Summary ---
Demographics + + + | Address | [address] | | | [place] [address] | + + + | Home Phone [...] [place] | | | | | [address] | | + + + + + Care Team Providers + +------+ + | Care Entertainment Lawyer Name | Role | Phone | + [...] large b-cell | Gerber Benson, | [address] [place] | | | | | lymphoma, | MD [address] | [place], | | | | | intra-abdomi | [address] | [place] [address] | | | | | nal lymph | [place], | Phone: | | | | | nodes (HCC) | [place] [address] | [phone] | | | | | Procedures | Phone: | Fax: | | | | | [place] | [phone] | [phone] | | | | | [place] | Fax: | | | | | | INJECTION, | [phone] | | | | | | 100 [...] + + + + | 06/19/ | [facility] | [facility] | Mohamud, | Diffuse large B-cell | | 2017 | Encounter | MED CTR CHEMO | Gerber Benson MD [address] | lymphoma of | | | | INFUSION [address] | [address] [place] | intra-abdominal | | | | [place], | [place] [address] | lymph nodes (HCC); | | | | [place] [address] | [phone] | Lymphedema of left | | | | [phone] | | lower extremity | +--------+ + [...] | | | | [place], [place] | | | | | | [address] | | | | | | | [...] | | | | | | [facility] | | | | | | MEDICAL | | | | | | CENTER - | | | | | | LABORATORY | | + + + + + + | RBC | 4.21 (L) | 4.30 - 5.70 | [facility] | | | | | M/uL | [facility] | | | | | | MEDICAL | | | | | | CENTER - | | | | | | LABORATORY | | + + + + + + | Hemoglobin | 12.7 (L) | 13.5 - 18.0 | [facility] | | | | | g/dL | [facility] | | | | | [...] [address] | [place] | [phone] | | [facility] | | [address] | | | - LABORATORY | | [...] 108 | 70 - 109 mg/dL | [facility] | | | | | | [facility] | | | | | | MEDICAL | | | | | | CENTER - | | | | | | LABORATORY | | + + + + + + | BUN | 16 | 7 - 18 mg/dL | [facility] | | | | | | [facility] | | | | | | MEDICAL | | | | | | CENTER - | | | | | | LABORATORY | | + + + + + + | Creatinine | 0.89 | 0.60 - 1.30 | [facility] | | | | | mg/dL | [facility] | | | | | | MEDICAL | | | | | | CENTER - | | | | | | LABORATORY | | + + + + + + | eGFR if not | >60Comment: GLOMERULAR | >=60 | [facility] | | | | FILTRATION | mL/min/1.73m2 | [facility] | | | POLISH | RATE,ESTIMATED | | MEDICAL | | | | mL/min/1.45n4Oqnn than | | CENTER - | | [...] [address] | [place] | [phone] | | [facility] | | [address] | | | - LABORATORY | | [...] [address] | [place] | [phone] | | [facility] | | [address] | | | - LABORATORY | | [...]
--- OUTSIDE RECORDS SUMMARY | ~2020-01-25 | XMS | Encounter Summary ---
Demographics + + + | Address | [address] | | | [place] [address] | + + + | Home Phone [...] [place] | | | | | [address] | | + + + + + Care Team Providers + +------+ + | Care Scorer Helper Name | Role | Phone | [...] + + | 10/05/ | Hospital | [facility] | Mohamud, | Diffuse large B-cell | | 2017 | Encounter | [facility] | Gerber Benson MD [address] | lymphoma of | | | | [facility] [address] [place] | intra-abdominal | | | | [address] | [place] [address] | lymph nodes (HCC) | | | | [place] [address] | [phone] | (Primary Dx); | | | | [phone] | | Lymphedema of left | | | | | Yang Townsend MD | lower extremity; | | | | | [address] | 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 Hematology-Oncology Progress Note [facility] Pt. Name/Age/: Gerber Galindo 66 y.o. 1950 CSN: [id number] Date of service: 10/05/2016 Provider: Yang Townsend [...] this chart may have been created with [employer] voice recognition software. Occasi onal wrong-word or [...] | | | | | [place], [place] | | | | | | [id number] | | | | | | | [...] + | [facility] | [address] | [place], [place] | [phone] | | [facility] | | [address] | | | - LABORATORY | | [...] + | [facility] | [address] | [place] | [phone] | | [facility] | | [address] | | | - LABORATORY | | [...] | | | | | | [facility] | | | | [...] not | >60Comment: GLOMERULAR | >=60 | [facility] | | | | FILTRATION | mL/min/1.73m2 | YUE | | | CAMEROONIAN | RATE,ESTIMATED | | MEDICAL | | | | mL/min/1.25b4Bhnt than | | CENTER - | | [...] + | [facility] | [address] | [place] | [phone] | | [facility] | | [address] | | | - LABORATORY | | [...] [address] | [place] | [phone] | | [facility] | | [address] | | | - LABORATORY | | [...]
--- NOTE | 2020-01-26 11:32 | EKG ---
[facility] [address] [facility] [place] [address] Signed Sinus rhythm with 1st degree AV block Left axis deviation Abnormal ECG When compared with ECG of 27-SEP-2019 09:29, No significant change was found Confirmed by FLORINDA ESTRADA DO ([id number]) on 01/26/2020 11:32:05 AM Electronically Signed By: FLORINDA ESTRADA DO 01/26/20 1132 PATIENT NAME: JOAQUIM SANCHEZ Electrocardiogram DATE OF : 52 PHYSICIAN: FLORINDA ESTRADA DO REPORT #: [id number] REPORT IS CONFIDENTIAL AND NOT TO BE RELEASED WITHOUT AUTHORIZATION
== END ==
LOC: ED 15:26
DX: D61.818 Other pancytopenia (principal); I10 Essential (primary) hypertension; I25.2 Old myocardial infarction; Z88.5 Allergy status to narcotic agent; Z79.899 Other long term (current) drug therapy
CPT/HCPCS: 36415; 80053; 84484; 85025; 93005; 93010; 99285-25

== ENCOUNTER 2024-09-07 12:14 | Emergency (ER) | payer MEDICARE, BC ==
[~2024-09-07] VITALS: Ht 188 cm; Wt 149.0 kg
[~2024-09-07 12:14] MED LIST changes: +FISH OIL 1,0001 EAC3 PO; +ZESTRIL10 MG PO; -ZESTRIL5 MG PO
[2024-09-07 14:00] VITALS: BP 142/78
== END 2024-09-07 14:00 | disposition home or self-care (01) ==
LOC: ED 12:14
DX: S89.91XA Unspecified injury of right lower leg, initial encounter (principal); I10 Essential (primary) hypertension; I25.2 Old myocardial infarction; Z95.5 Presence of coronary angioplasty implant and graft; Z86.73 Personal history of transient ischemic attack (TIA), and cerebral infarction without residual deficits; Z88.5 Allergy status to narcotic agent; Z79.84 Long term (current) use of oral hypoglycemic drugs; Z79.899 Other long term (current) drug therapy; Z79.82 Long term (current) use of aspirin; W10.9XXA Fall (on) (from) unspecified stairs and steps, initial encounter; X50.1XXA Overexertion from prolonged static or awkward postures, initial encounter
CPT/HCPCS: 73560; 99283